=== PATIENT | male | born 1955 | race Caucasian/White ===

== ENCOUNTER → 2020-10-01 | Outpatient (CLI) | payer MEDICARE | LOC: WOUNDCARE 13:44 | PROVIDERS: ATTEND Surgery | DX: E11.52 Type 2 diabetes mellitus with diabetic peripheral angiopathy with gangrene (principal); E11.622 Type 2 diabetes mellitus with other skin ulcer; L97.226 Non-pressure chronic ulcer of left calf with bone involvement without evidence of necrosis; I70.262 Atherosclerosis of native arteries of extremities with gangrene, left leg; T65.222A Toxic effect of tobacco cigarettes, intentional self-harm, initial encounter; F17.218 Nicotine dependence, cigarettes, with other nicotine-induced disorders; Z89.512 Acquired absence of left leg below knee | CPT/HCPCS: 11042; A6266; G0463 ==

== ENCOUNTER → 2020-10-08 | Outpatient (CLI) | payer MEDICARE ==
--- NOTE | 2020-10-08 16:33 | Diagnostic Imaging Report ---
INDICATION: Soft tissue ulcer. COMPARISON: None FINDINGS: Multiple radiographic views of the left tibia and fibula were obtained. There is gross deformity to the tibia and fibula consistent with probable old healed fractures. 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 Cortical margins appear well-defined. No distinct osteolytic process is identified. No unexpected radiopaque foreign bodies are seen. Left knee joint appears intact. IMPRESSION: 1. No distinct osteolytic process is identified. Please note however that osteomyelitis cannot be excluded based on radiographs alone. If there is concern for osteomyelitis, MRI is recommended. 2. Gross deformity of the left tibia and fibula suggestive of prior fracture and subsequent healing. Dictated by: Dictated on workstation # [id number]
== END ==
LOC: LAB 11:38
PROVIDERS: ATTEND Surgery
DX: E11.622 Type 2 diabetes mellitus with other skin ulcer (principal); I70.242 Atherosclerosis of native arteries of left leg with ulceration of calf; L97.226 Non-pressure chronic ulcer of left calf with bone involvement without evidence of necrosis; T65.222A Toxic effect of tobacco cigarettes, intentional self-harm, initial encounter; F17.218 Nicotine dependence, cigarettes, with other nicotine-induced disorders; Z89.512 Acquired absence of left leg below knee
CPT/HCPCS: 36415; 73590; 85652; 86141

== ENCOUNTER → 2020-10-08 | Outpatient (CLI) | payer MEDICARE ==
[~2020-10-08] MED LIST: EMPA1TAB PO; GABA-490 PO; IBUP-1773 PO; INSU100I14 SC; INSU100I34 SC; METF-399 PO
== END ==
LOC: WOUNDCARE 12:09
PROVIDERS: ATTEND Surgery
DX: E11.622 Type 2 diabetes mellitus with other skin ulcer (principal); I96 Gangrene, not elsewhere classified; L97.226 Non-pressure chronic ulcer of left calf with bone involvement without evidence of necrosis; I70.242 Atherosclerosis of native arteries of left leg with ulceration of calf; T65.222A Toxic effect of tobacco cigarettes, intentional self-harm, initial encounter; F17.218 Nicotine dependence, cigarettes, with other nicotine-induced disorders; Z89.512 Acquired absence of left leg below knee
CPT/HCPCS: 11042; G0463

== ENCOUNTER 2020-11-16 14:32 | Inpatient (IN) | payer MEDICARE ==
[~2020-11-16] VITALS: Ht 168 cm; Wt 54.5 kg
[2020-11-16 14:35] VITALS: BP 110/77
[2020-11-16 14:45] LABS: BASOPHILS # (AUTO) 0.1 10^3/uL (0.0-0.1); BASOPHILS % (AUTO) 0 % (0-10); EOSINOPHILS # (AUTO) 0.5 10^3/uL (0.0-0.3); EOSINOPHILS % (AUTO) 3 % (0-10); HEMATOCRIT 40 % (40-54); HEMOGLOBIN 13.3 g/dL (13.3-17.7); LYMPHOCYTES # (AUTO) 1.9 10^3/uL (1.0-4.0); LYMPHOCYTES % (AUTO) 11 % (12-44); MEAN CORPUSCULAR HEMOGLOBIN 31 pg (25-34); MEAN CORPUSCULAR HGB CONC 33 g/dL (32-36); MEAN CORPUSCULAR VOLUME 93 fL (80-99); MEAN PLATELET VOLUME 9.6 fL (9.0-12.2); MONOCYTES # (AUTO) 1.2 10^3/uL (0.0-1.0); MONOCYTES % (AUTO) 7 % (0-12); NEUTROPHILS # (AUTO) 13.6 10^3/uL (1.8-7.8); NEUTROPHILS % (AUTO) 78 % (42-75); PLATELET COUNT 412 10^3/uL (130-400); WHITE BLOOD COUNT 17.5 10^3/uL (4.3-11.0)
[2020-11-16] MEDS ORDERED: NS IV 1000 ML 1,000 ML ONE ×2 (14:48→15:16)
[2020-11-16 14:56] LABS: ALBUMIN 4.3 GM/DL (3.2-4.5); POTASSIUM 3.7 MMOL/L (3.6-5.0)
--- NOTE | 2020-11-16 14:57 | Diagnostic Imaging Report ---
PROCEDURE: CT head w/o, r/o stroke. TECHNIQUE: Multiple contiguous axial images were obtained through the brain without the use of intravenous contrast. Auto Exposure Controls were utilized during the CT exam to meet ALARA standards for radiation dose reduction. INDICATION: Stroke. Neurological deficit. COMPARISON: 08/09/2012. FINDINGS: The ventricles and cortical sulci are mildly prominent, likely from generalized parenchymal volume loss. There is no midline shift or mass effect. No acute intracranial hemorrhage is seen. No CT evidence of acute territorial ischemia is identified. There are areas of periventricular hypodensity in the white matter. The calvarium appears intact. Visualized paranasal sinuses are clear. IMPRESSION: 1. No acute intracranial hemorrhage or CT evidence of acute territorial ischemia. If there is persistent clinical concern for infarct, consider MRI. 2. Generalized parenchymal volume loss with findings of chronic microvascular disease. Dictated by: Dictated on workstation # [id number]
[2020-11-16 14:58] LABS: CALCIUM 10.1 MG/DL (8.5-10.1)
[2020-11-16 15:00] LABS: BILIRUBIN,TOTAL 0.3 MG/DL (0.1-1.0)
[2020-11-16 15:01] LABS: FIBRIN DEGRADATION PRODUCTS 0.28 UG/ML (0.00-0.49); INR 0.9 (0.8-1.4); PROTHROMBIN TIME PATIENT 12.5 SEC (12.2-14.7)
[2020-11-16 15:02] LABS: CREATININE SERUM 1.78 MG/DL (0.60-1.30)
[2020-11-16 15:04] LABS: BAND NEUTROPHILS 0 %; BASOPHILS % (MANUAL) 0 %; EOSINOPHILS % (MANUAL) 2 %; LYMPHOCYTES % (MANUAL) 8 %; MONOCYTES % (MANUAL) 7 %; NEUTROPHILS % (MANUAL) 83 %; RBC MORPH NORMAL
[2020-11-16 15:09] LABS: ABG BASE EXCESS -6.3 MMOL/L (-2.5-2.5); ABG OXYGEN SATURATION 94 % (94-100); ABG PO2 84 MMHG (79-93); ABG TCO2 25.1 MMOL/L (21.0-31.0)
[2020-11-16 15:10] LABS: INSPIRED O2 4; PATIENT TEMP 35.6; VENTILATOR NO
[2020-11-16] MEDS ORDERED: NOREPINEPHRINE 8 MG/250 ML 250 ML IV ONE (15:10)
--- NOTE | 2020-11-16 15:10 | Diagnostic Imaging Report ---
HISTORY: Unresponsive. Altered mental status. Stroke. COMPARISON: CT from 03/07/2013. TECHNIQUE: Frontal view of the chest. FINDINGS: Lung volumes are normal. There are mild airspace opacities in the left lung base. There is no pleural effusion or pneumothorax. The cardiac silhouette is normal in size. IMPRESSION: Left basilar airspace opacities, may represent atelectasis or infiltrate. Dictated by: Dictated on workstation # [id number]
[2020-11-16 15:11] LABS: ABG PCO2 76 MMHG (35-45); ABG PH 7.09 (7.37-7.43)
[2020-11-16] MEDS ORDERED: PROPOFOL DRIP (ICU) 100 ML IV ONE (15:26)
[2020-11-16 15:32] VITALS: BP 80/57
[2020-11-16] MEDS ORDERED: PIPERACILLIN SODIUM/TAZOBACTAM 4.5 GM in NS (IVPB) 100 ML IV ONE (15:45)
--- NOTE | 2020-11-16 15:46 | ED General ---
General Stated Complaint: UNRESPONSIVE Source of Information: EMS Exam Limitations: Other (Unresponsive) History of Present Illness Date Seen by Provider: November 16, 2020 Time Seen by Provider: 14:32 Initial Comments Here by EMS with report of unresponsiveness at home. Daughter states the patient hides his medicines and she is unsure what he takes. Does have prescriptions through [facility] for diabetes medicine and may have recently been on antibiotic. Patient is somewhat obtunded marginally protecting airway with O2 sats in the 90s with nasal cannula. Seems to move bilateral extremities upper and has prosthetic to left lower extremity. Does have history of wound to the left lower extremity and on and infection there. Otherwise very limited information. Timing/Duration: 1-3 Hours Severity: Severe Allergies and Home Medications Allergies Coded Allergies: No Known Drug Allergies (Unverified , 05/02/11) Patient Home Medication List Home Medication List Reviewed: Yes Review of Systems Review of Systems Constitutional: see HPI Unable to complete review of systems due to unresponsiveness and critical condition. Past Vhvucbw-Tgekao-Dccthv Hx Past Med/Social Hx: Reviewed Nursing Past Med/Soc Hx (Records review) Patient Social History Alcohol Use: Regular Use Smoking Status: Current Everyday Smoker Past Medical History Surgeries: Yes Orthopedic Endocrine: Yes Diabetes, Non-Insulin dep Family Medical History No Pertinent Family Hx Physical Exam Vital Signs Vital Signs - First Documented 11/16/20 11/16/20 14:35 14:47 Pulse 75 Resp 10 B/P (MAP) 110/77 Pulse Ox 98 O2 Delivery Nasal Cannula O2 Flow Rate 4.00 FiO2 100 Capillary Refill : Height, Weight, BMI Height: '" Weight: lbs. oz. kg; BMI Method:Estimated General Appearance: Chronically ill, Severe Distress, Thin HEENT: Other (Pupils pinpoint bilateral with dry mucous membranes) Neck: Non Tender, Supple Respiratory: Other (Coarse breath sounds with bagging bilateral. Respiratory rate 4-7. Occasional snoring respirations) Cardiovascular: Regular Rate, Rhythm, No Murmur Gastrointestinal: Non Tender, Soft Back: Normal Inspection, No CVA Tenderness, No Vertebral Tenderness Extremity: Other (Left BKA with prosthetic device. Distal stump has bandaged wound.) Neurologic/Psychiatric: Other (Unresponsive but does localize to pain. Eye- opening to pain and nonverbal.) Skin: Warm/Dry, Erythema (Distal stump on left leg has wound with packing and surrounding erythema.), Other (Bandaged wound to distal stump left lower leg.) Focused Exam Lactate Level 11/16/20 14:35: Lactic Acid Level 0.70 Lactic Acid Level Laboratory Tests Test 11/16/20 14:35 Lactic Acid Level 0.70 MMOL/L (0.50-2.00) Procedures/Interventions Tube Size: 7.50 Progress/Results/Core Measures Suspected Sepsis SIRS Temperature: Pulse: 60 Respiratory Rate: 14 Laboratory Tests 11/16/20 14:35: White Blood Count 17.5H Blood Pressure 170 /106 Mean: 127 11/16/20 14:35: Lactic Acid Level 0.70 Laboratory Tests 11/16/20 14:35: Creatinine 1.78H, INR Comment 0.9, Platelet Count 412H, Total Bilirubin 0.3 Results/Orders Lab Results Laboratory Tests Test 11/16/20 14:35 11/16/20 14:47 11/16/20 15:01 11/16/20 15:12 Range/Units White Blood Count 17.5 H 4.3-11.0 10^3/uL Red Blood Count 4.27 L 4.30-5.52 10^6/uL Hemoglobin 13.3 13.3-17.7 g/dL Hematocrit 40 40-54 % Mean Corpuscular Volume 93 80-99 fL Mean Corpuscular Hemoglobin 31 25-34 pg Mean Corpuscular Hemoglobin Concent 33 32-36 g/dL Red Cell Distribution Width 12.8 10.0-14.5 % Platelet Count 412 H 130-400 10^3/uL Mean Platelet Volume 9.6 9.0-12.2 fL Immature Granulocyte % (Auto) 2 % Neutrophils (%) (Auto) 78 H 42-75 % Lymphocytes (%) (Auto) 11 L 12-44 % Monocytes (%) (Auto) 7 0-12 % Eosinophils (%) (Auto) 3 0-10 % Basophils (%) (Auto) 0 0-10 % Neutrophils # (Auto) 13.6 H 1.8-7.8 10^3/uL Lymphocytes # (Auto) 1.9 1.0-4.0 10^3/uL Monocytes # (Auto) 1.2 H 0.0-1.0 10^3/uL Eosinophils # (Auto) 0.5 H 0.0-0.3 10^3/uL Basophils # (Auto) 0.1 0.0-0.1 10^3/uL Immature Granulocyte # (Auto) 0.3 H 0.0-0.1 10^3/uL Neutrophils % (Manual) 83 % Lymphocytes % (Manual) 8 % Monocytes % (Manual) 7 % Eosinophils % (Manual) 2 % Basophils % (Manual) 0 % Band Neutrophils 0 % Blood Morphology Comment NORMAL Prothrombin Time 12.5 12.2-14.7 SEC INR Comment 0.9 0.8-1.4 Activated Partial Thromboplast Time 34 24-35 SEC D-Dimer 0.28 0.00-0.49 UG/ML Sodium Level 134 L 135-145 MMOL/L Potassium Level 3.7 3.6-5.0 MMOL/L Chloride Level 99 98-107 MMOL/L Carbon Dioxide Level 21 21-32 MMOL/L Anion Gap 14 5-14 MMOL/L Blood Urea Nitrogen 37 H 7-18 MG/DL Creatinine 1.78 H 0.60-1.30 MG/DL Estimat Glomerular Filtration Rate 38 BUN/Creatinine Ratio 21 Glucose Level 162 H 70-105 MG/DL Lactic Acid Level 0.70 0.50-2.00 MMOL/L Calcium Level 10.1 8.5-10.1 MG/DL Corrected Calcium 9.9 8.5-10.1 MG/DL Total Bilirubin 0.3 0.1-1.0 MG/DL Aspartate Amino Transf (AST/SGOT) 19 5-34 U/L Alanine Aminotransferase (ALT/SGPT) 15 0-55 U/L Alkaline Phosphatase 59 40-136 U/L Troponin I 0.609 *H <0.028 NG/ML C-Reactive Protein High Sensitivity 7.40 H 0.00-0.50 MG/DL Total Protein 8.0 6.4-8.2 GM/DL Albumin 4.3 3.2-4.5 GM/DL Procalcitonin 0.08 <0.10 NG/ML Salicylates Level < 5.0 L 5.0-20.0 MG/DL Acetaminophen Level < 10 L 10-30 UG/ML Serum Alcohol < 10 <10 MG/DL Glucometer 173 H 70-110 MG/DL Blood Gas Puncture Site RIGHT RADIAL Blood Gas Patient Temperature 35.6 Arterial Blood pH 7.09 *L 7.37-7.43 Arterial Blood Partial Pressure CO2 76 *H 35-45 MMHG Arterial Blood Partial Pressure O2 84 79-93 MMHG Arterial Blood HCO3 23 23-27 MMOL/L Arterial Blood Total CO2 25.1 21.0-31.0 MMOL/L Arterial Blood Oxygen Saturation 94 94-100 % Arterial Blood Base Excess -6.3 L -2.5-2.5 MMOL/L Fred Test UNKNOWN Blood Gas Ventilator Setting NO Blood Gas Inspired Oxygen 4 Urine Color YELLOW Urine Clarity CLEAR Urine pH 6.0 5-9 Urine Specific [place] 1.025 H 1.016-1.022 Urine Protein TRACE H NEGATIVE Urine Glucose (UA) 2+ H NEGATIVE Urine Ketones NEGATIVE NEGATIVE Urine Nitrite NEGATIVE NEGATIVE Urine Bilirubin NEGATIVE NEGATIVE Urine Urobilinogen 0.2 < = 1.0 MG/DL Urine Leukocyte Esterase NEGATIVE NEGATIVE Urine RBC (Auto) NEGATIVE NEGATIVE Urine RBC NONE /HPF Urine WBC RARE /HPF Urine Squamous Epithelial Cells RARE /HPF Urine Crystals NONE /LPF Urine Bacteria NEGATIVE /HPF Urine Casts NONE /LPF Urine Mucus NEGATIVE /LPF Urine Culture Indicated NO Urine Opiates Screen NEGATIVE NEGATIVE Urine Oxycodone Screen NEGATIVE NEGATIVE Urine Methadone Screen POSITIVE H NEGATIVE Urine Propoxyphene Screen NEGATIVE NEGATIVE Urine Barbiturates Screen NEGATIVE NEGATIVE Ur Tricyclic Antidepressants Screen NEGATIVE NEGATIVE Urine Phencyclidine Screen NEGATIVE NEGATIVE Urine Amphetamines Screen POSITIVE H NEGATIVE Urine Methamphetamines Screen POSITIVE H NEGATIVE Urine Benzodiazepines Screen NEGATIVE NEGATIVE Urine Cocaine Screen NEGATIVE NEGATIVE Urine Cannabinoids Screen NEGATIVE NEGATIVE Test 11/16/20 16:16 Range/Units Blood Gas Puncture Site RIGHT RADIAL Blood Gas Patient Temperature 35.4 Arterial Blood pH 7.22 *L 7.37-7.43 Arterial Blood Partial Pressure CO2 42 35-45 MMHG Arterial Blood Partial Pressure O2 228 H 79-93 MMHG Arterial Blood HCO3 17 *L 23-27 MMOL/L Arterial Blood Total CO2 18.8 L 21.0-31.0 MMOL/L Arterial Blood Oxygen Saturation 99 94-100 % Arterial Blood Base Excess -9.2 L -2.5-2.5 MMOL/L Fred Test NEGATIVE Blood Gas Ventilator Setting YES Blood Gas Inspired Oxygen 36% My Orders Orders - MICHAEL WRIGHT MD Cbc With Automated Diff (11/16/20 14:34) Protime With Inr (11/16/20 14:34) Partial Thromboplastin Time (11/16/20 14:34) Comprehensive Metabolic Panel (11/16/20 14:34) Fibrin Degradation Products (11/16/20 14:34) Troponin I (11/16/20 14:34) Ua Culture If Indicated (11/16/20 14:34) Chest 1 View, Ap/Pa Only (11/16/20 14:34) Catheter(Urinary) Insert & Ass 03,15 (11/16/20 14:34) Ekg Tracing (11/16/20 14:34) Nothing By Mouth (11/16/20 Lunch) Accucheck Stat ONCE (11/16/20 14:34) Ed Iv/Invasive Line Start (11/16/20 14:34) Vital Signs Stroke Patient Q15M (11/16/20 14:34) Ct Head Wo-R/O Stroke (11/16/20 14:34) O2 (11/16/20 14:34) Intake & Output 06,14,22 (11/16/20 14:34) Monitor-Rhythm Ecg Trace Only (11/16/20 14:34) Dysphagia Screening Tool (11/16/20 14:34) Lipid Panel (11/17/20 06:00) Manual Differential (11/16/20 14:35) Blood Culture (11/16/20 14:55) Arterial Blood Gas (11/16/20 14:55) Ns Iv 1000 Ml (Sodium Chloride 0.9%) (11/16/20 14:48) Hs C Reactive Protein (11/16/20 14:35) Procalcitonin (Pct) (11/16/20 14:35) Norepinephrine 8 Mg/250 Ml (Norepinephri (11/16/20 15:10) Ns Iv 1000 Ml (Sodium Chloride 0.9%) (11/16/20 15:16) Drug Screen Stat (Urine) (11/16/20 15:34) Propofol Drip (Icu) (Diprivan Drip (Icu) (11/16/20 15:26) Lactic Acid Analyzer (11/16/20 15:38) Piperacillin Sodium/Tazobactam (Zosyn Vi (11/16/20 15:45) Acetaminophen (11/16/20 15:50) Alcohol (11/16/20 15:50) Salicylate (11/16/20 15:50) Vancomycin Injection (Vancomycin Injecti (11/16/20 16:15) Arterial Blood Gas (11/16/20 16:15) Medications Given in ED Current Medications Medications Dose Ordered Sig/Aracely Route Start Time Stop Time Status Last Admin Dose Admin Norepinephrine Bitartrate 250 ml @ ud STK-MED ONCE IV 11/16/20 15:10 11/16/20 15:18 DC 11/16/20 15:25 8.4 MLS/HR Piperacillin Sod/ Tazobactam Sod 4.5 gm/Sodium Chloride 100 ml @ 200 mls/hr ONCE ONCE IV 11/16/20 15:45 11/16/20 16:14 DC 11/16/20 15:59 200 MLS/HR Propofol 100 ml @ ud STK-MED ONCE IV 11/16/20 15:26 11/16/20 15:34 DC 11/16/20 15:37 8.1 MLS/HR Sodium Chloride 1,000 ml @ ud STK-MED ONCE .ROUTE 11/16/20 14:48 11/16/20 14:57 DC 11/16/20 15:07 0 MLS/HR Sodium Chloride 1,000 ml @ ud STK-MED ONCE .ROUTE 11/16/20 15:16 11/16/20 15:25 DC 11/16/20 15:27 150 MLS/HR Vancomycin HCl 1000 mg/Sodium Chloride 250 ml @ 250 mls/hr ONCE ONCE IV 11/16/20 16:15 11/16/20 17:14 DC 11/16/20 16:45 250 MLS/HR Vital Signs/I&O 11/16/20 11/16/20 11/16/20 11/16/20 14:35 14:47 15:25 15:32 Pulse 75 57 61 Resp 10 14 B/P (MAP) 110/77 80/57 Pulse Ox 98 89 100 O2 Delivery Nasal Cannula O2 Flow Rate 4.00 FiO2 100 100 11/16/20 15:37 Pulse 60 B/P (MAP) 170/106 Capillary Refill : Blood Pressure Mean: 127 Progress Note : Progress Note Seen and evaluated on arrival by EMS. Patient is barely protecting his airway with marginal O2 sats on nasal cannula. We will go ahead and do stroke evaluation. To CT after rapid assessment and stroke protocol initiated.. Patient appears to be moving all 4 extremities intermittently but is not waking to answer questions. 1450: Returned from CT. EKG complete. Patient remains obtunded with GCS of 8 (E2, V1, M5.) Elected to intubate for airway protection. 1510: Patient intubated x1 attempt via videoscope without complications. We have had additional labs for sepsis. We will initiate Gomez catheter and NG tube. 1534: Central line placed via ultrasound guidance without complications. We have initiated propofol drip and Levophed drip. Levophed for hypotension after intubation although this was titrated down to off. Propofol drip for continued sedation. Patient did receive 2.5 mg of Versed IV and fentanyl 50 mcg IV for post intubation sedation. Propofol drip initiated at 30 mcg/kg/min Levophed initiated at 0.1 mcg/kg/min. 1559: I did discuss the case with Dr. Wheatley and she accepts patient for admission to the ICU, critical condition but stabilized. Requests consult with Dr. Spaulding. 1607: I did discuss the case with Dr. Spaulding. He agrees with current plan. Request ABG now which was ordered so that we can adjust vent. Currently vent settings at rate of 12, tidal volume 450 and PEEP of 5 with FiO2 at 50%. 1639: I rediscussed the case with Dr. Spaulding. Vent settings were changed to rate of 18 and FiO2 has been decreased to keep O2 sat greater than 92%. Otherwise agrees with the plan. I did have a long discussion with the daughter and updated her on all the findings and concerns and she brought further information that she had been watching for couple hours as he was not really responsive and with occasional quit breathing. She kept trying to wake him up and he would not and ultimately called EMS. He does have significant problem with pain related to the stump but is not prescribed pain medicine. She states the doctors are prescribing it to him but he does not really follow-up with anybody permanently. We did discuss that he will need a primary care provider to help him with the pain control needs. She verbalized understanding. Patient and family may benefit from social work consult once improved. 1651: Patient to ICU. Patient did have evidence of infection both in the left lower extremity and left lower lobe with a long for which antibiotics were started. Hypotension and shock state likely related to drug overdose we will go ahead and treat as septic shock. Patient did have order of 2 L of normal saline bolus which exceeds the 30 mL/kg volume resuscitation. Levophed was initiated which did adequately control blood pressure with fluids. Patient admitted on sepsis order set. ECG Initial ECG Impression Date: November 16, 2020 Initial ECG Impression Time: 14:50 Initial ECG Rate: 72 Initial ECG Rhythm: Normal Sinus Comment Sinus rhythm with left ventricular hypertrophy. No evidence of ST elevation CA. No previous available for comparison. Interpreted by me. Diagnostic Imaging Diagonstic Imaging: CT Plain Films/CT/US/NM/MRI: head Comments [facility], [place] NAME: ARASH BARILLAS [facility] REC#: [id number] PT STATUS: REG ER : 1955 PHYSICIAN: MICHAEL WRIGHT MD ADMIT DATE: 11/16/20/ER Signed Date of Exam:11/16/20 CT HEAD WO-R/O STROKE PROCEDURE: CT head w/o, r/o stroke. TECHNIQUE: Multiple contiguous axial images were obtained through the brain without the use of intravenous contrast. Auto Exposure Controls were utilized during the CT exam to meet ALARA standards for radiation dose reduction. INDICATION: Stroke. Neurological deficit. COMPARISON: 08/09/2012. FINDINGS: The ventricles and cortical sulci are mildly prominent, likely from generalized parenchymal volume loss. There is no midline shift or mass effect. No acute intracranial hemorrhage is seen. No CT evidence of acute territorial ischemia is identified. There are areas of periventricular hypodensity in the white matter. The calvarium appears intact. Visualized paranasal sinuses are clear. IMPRESSION: 1. No acute intracranial hemorrhage or CT evidence of acute territorial ischemia. If there is persistent clinical concern for infarct, consider MRI. 2. Generalized parenchymal volume loss with findings of chronic microvascular disease. Dictated by: Dictated on workstation # [id number] Dict: 11/16/20 1445 Trans: 11/16/20 1524 [facility] [id number] Interpreted by: CARMINA BANKS MD Electronically signed by: CARMINA BANKS MD 11/16/20 1524 Diagonstic Imaging: Xray Plain Films/CT/US/NM/MRI: chest Comments [facility] [place], [place] NAME: ARASH BARILLAS [facility] REC#: [id number] PT STATUS: REG ER : 1955 PHYSICIAN: MICHAEL WRIGHT MD ADMIT DATE: 11/16/20/ER Signed Date of Exam:11/16/20 CHEST 1 VIEW, AP/PA ONLY HISTORY: Unresponsive. Altered mental status. Stroke. COMPARISON: CT from 03/07/2013. TECHNIQUE: Frontal view of the chest. FINDINGS: Lung volumes are normal. There are mild airspace opacities in the left lung base. There is no pleural effusion or pneumothorax. The cardiac silhouette is normal in size. IMPRESSION: Left basilar airspace opacities, may represent atelectasis or infiltrate. Dictated by: Dictated on workstation # [id number] Dict: 11/16/20 1502 Trans: 11/16/20 1524 [facility] [id number] Interpreted by: CARMINA BANKS MD Electronically signed by: CARMINA BANKS MD 11/16/20 1524 Critical Care Note Critical Care Start Time: 14:32 Stop Time: 16:51 Total Time (minutes) 60 Departure Communication (Admissions) Time/Spoke to Admitting Phy: 15:59 Time/Spoke to Consulting Phy: 16:07 Impression Primary Impression: Drug overdose, multiple drugs Qualified Codes: T50.914A - Poisoning by multiple unspecified drugs, medicaments and biological substances, undetermined, initial encounter Additional Impressions: Left lower lobe pneumonia Qualified Codes: J18.9 - Pneumonia, unspecified organism Amputation stump infection Septic shock Disposition: ADMITTED INPATIENT Condition: Critical Admissions Decision to Admit Reason: Admit from ER (General) Decision to Admit/Date: November 16, 2020 Time/Decision to Admit Time: 15:59 Departure-Patient Inst. Referrals: JAYCE ROWAN DO (PCP/Family) Primary Care Physician Scripts No Active Prescriptions or Reported Meds MICHAEL WRIGHT MD November 16, 2020 15:46
--- NOTE | 2020-11-16 15:49 | Diagnostic Imaging Report ---
HISTORY: ET tube and central line placement. TECHNIQUE: Frontal view of the chest. COMPARISON: 11/16/2020. FINDINGS: Lung volumes are normal. The endotracheal tube is 6 cm above the flor. An enteric tube crosses the [id number]. The right jugular line tip projects over the low SVC. There are mild airspace opacities in the lung bases, left greater than right. There is no pleural effusion or pneumothorax. The cardiac silhouette is normal in size. IMPRESSION: 1. The endotracheal tube is 6 cm above the flor. The right jugular line projects over the low SVC. 2. Bibasilar airspace opacities, left greater than right, stable since the prior exam. Dictated by: Dictated on workstation # [id number]
[2020-11-16 15:50] LABS: AMPHETAMINE SCREEN, URINE POSITIVE (NEGATIVE); BARBITURATE SCREEN URINE NEGATIVE (NEGATIVE); BENZODIAZEPINES SCREEN URINE NEGATIVE (NEGATIVE); CANNABINOID SCREEN, URINE NEGATIVE (NEGATIVE); COCAINE SCREEN URINE NEGATIVE (NEGATIVE); METHADONE STAT POSITIVE (NEGATIVE); METHAMPHETAMINE SCREEN URINE S POSITIVE (NEGATIVE); OPIATE SCREEN URINE NEGATIVE (NEGATIVE); OXYCODONE STAT NEGATIVE (NEGATIVE); PROPOXYPHENE STAT NEGATIVE (NEGATIVE); TRICYCLIC ANTIDEPRESSANTS SCRE NEGATIVE (NEGATIVE)
[2020-11-16 16:07] LABS: BILIRUBIN,URINE NEGATIVE (NEGATIVE); CLARITY,URINE CLEAR; COLOR,URINE YELLOW; GLUCOSE, URINE (UA) 2+ (NEGATIVE); KETONES,URINE NEGATIVE (NEGATIVE); LEUKOCYTE ESTERASE ,URINE NEGATIVE (NEGATIVE); NITRITE,URINE NEGATIVE (NEGATIVE); PROTEIN,URINE TRACE (NEGATIVE)
[2020-11-16 16:11] LABS: SALICYLATE < 5.0 MG/DL (5.0-20.0)
[2020-11-16] MEDS ORDERED: VANCOMYCIN INJECTION 1,000 MG in NS (IVPB) 250 ML IV ONE (16:15)
[2020-11-16 16:20] LABS: ACETAMINOPHEN < 10 UG/ML (10-30)
[2020-11-16 16:20] LABS: BACTERIA,URINE NEGATIVE /HPF; SQUAMOUS EPITHELIAL CELL,UR RARE /HPF; WBC,URINE RARE /HPF
[2020-11-16 16:24] LABS: ABG BASE EXCESS -9.2 MMOL/L (-2.5-2.5); ABG OXYGEN SATURATION 99 % (94-100); ABG PCO2 42 MMHG (35-45); ABG PO2 228 MMHG (79-93); ABG TCO2 18.8 MMOL/L (21.0-31.0)
[2020-11-16 16:25] LABS: ALLENS TEST NEGATIVE; INSPIRED O2 36%; PATIENT TEMP 35.4; VENTILATOR YES
[2020-11-16 16:26] LABS: ABG PH 7.22 (7.37-7.43)
[2020-11-16] MEDS ORDERED: NS IV 1000 ML 1,000 ML IV SCH (16:30)
[2020-11-16 18:15] VITALS: BP 104/69
[2020-11-16] MEDS: LACTATED RINGERS 1,000 ML IV SCH (20:28)
[2020-11-16 21:25] VITALS: BP 103/66
[2020-11-16] MEDS ORDERED: PIPERACILLIN/TAZO 4.5 GM VIAL (ZOSYN) IV ONE (21:57)
[2020-11-16] MEDS ORDERED: NS (IVPB) 100 ML ONE (21:58)
[2020-11-16] MEDS ORDERED: fentaNYL DRIP PRE-MIX 250 ML IV ONE (22:20)
[2020-11-16] MEDS: fentaNYL DRIP PRE-MIX 250 ML IV SCH (22:37)
[2020-11-16] MEDS: PIPERACILLIN/TAZO 4.5 GM/NS 100 ML IV SCH ×2 (22:37)
[2020-11-17] VITALS (7 sets, daily range): BP systolic 93–114; BP diastolic 57–65
[2020-11-17] MEDS: fentaNYL DRIP PRE-MIX 250 ML IV SCH ×5 (02:19→22:12)
[2020-11-17] MEDS: PROPOFOL DRIP (ICU) 100 ML IV SCH ×3 (02:19→16:21)
[2020-11-17] MEDS: LACTATED RINGERS 1,000 ML IV SCH ×4 (02:19→22:40)
[2020-11-17 02:21] LABS: ABG BASE EXCESS -7.8 MMOL/L (-2.5-2.5); ABG OXYGEN SATURATION 95 % (94-100); ABG PCO2 37 MMHG (35-45); ABG PO2 81 MMHG (79-93); ABG TCO2 18.6 MMOL/L (21.0-31.0)
[2020-11-17 02:26] LABS: ABG PH 7.29 (7.37-7.43)
[2020-11-17 02:27] LABS: ALLENS TEST YES-POS; INSPIRED O2 21%; PATIENT TEMP 37.1; VENTILATOR YES
[2020-11-17 02:58] LABS: BASOPHILS # (AUTO) 0.1 10^3/uL (0.0-0.1); BASOPHILS % (AUTO) 0 % (0-10); EOSINOPHILS # (AUTO) 0.4 10^3/uL (0.0-0.3); EOSINOPHILS % (AUTO) 2 % (0-10); HEMATOCRIT 32 % (40-54); LYMPHOCYTES # (AUTO) 1.1 10^3/uL (1.0-4.0); LYMPHOCYTES % (AUTO) 6 % (12-44); MEAN CORPUSCULAR HEMOGLOBIN 31 pg (25-34); MEAN CORPUSCULAR HGB CONC 33 g/dL (32-36); MEAN CORPUSCULAR VOLUME 94 fL (80-99); MEAN PLATELET VOLUME 9.3 fL (9.0-12.2); MONOCYTES # (AUTO) 1.2 10^3/uL (0.0-1.0); MONOCYTES % (AUTO) 6 % (0-12); NEUTROPHILS # (AUTO) 16.9 10^3/uL (1.8-7.8); NEUTROPHILS % (AUTO) 86 % (42-75); PLATELET COUNT 337 10^3/uL (130-400); WHITE BLOOD COUNT 19.7 10^3/uL (4.3-11.0)
[2020-11-17 02:59] LABS: HEMOGLOBIN 10.6 g/dL (13.3-17.7)
[2020-11-17 03:20] LABS: BUN/CREATININE RATIO 25; CALCIUM 7.7 MG/DL (8.5-10.1); CARBON DIOXIDE 18 MMOL/L (21-32); CHOLESTEROL 138 MG/DL (< 200); CREATININE SERUM 1.04 MG/DL (0.60-1.30); GFR ESTIMATED > 60; GLUCOSE 90 MG/DL (70-105); HDL CHOLESTEROL 25 MG/DL (40-60); MAGNESIUM 1.7 MG/DL (1.6-2.4); PHOSPHORUS 2.7 MG/DL (2.3-4.7); POTASSIUM 3.2 MMOL/L (3.6-5.0); SODIUM 139 MMOL/L (135-145); TRIGLYCERIDES 157 MG/DL (<150); VLDL CHOLESTEROL 31 MG/DL (5-40)
[2020-11-17 03:35] LABS: CHLORIDE 111 MMOL/L (98-107)
--- NOTE | 2020-11-17 05:33 | Pulmonary Consultation ---
History of Present Illness History of Present Illness Date Seen by Provider: November 17, 2020 Time Seen by Provider: 05:27 Date of Admission History of Present Illness 65yoCM with a PMH of IDDMII, HLD, and chronic pain who presented to the ER due to decreased responsiveness. He is currently intubated and sedated and unable to provide any history. All history obtained from the records. Allergies and Home Medications Allergies Coded Allergies: No Known Drug Allergies (Unverified , 05/02/11) Home Medications Empagliflozin/Linagliptin 1 Each Tablet, 1 EA PO DAILY, (Reported) Gabapentin 400 Mg Capsule, 400 MG PO TID, (Reported) LAST FILLED 08-23-2020 #90/30 DAY SUPPLY Ibuprofen 600 Mg Tablet, 600 MG PO Q6H PRN for PAIN-MILD (1-4), (Reported) Insulin Aspart 300 Units/3 Ml Solution, UNITS SC ACHS, (Reported) USES PER SLIDING SCALE Insulin Glargine,Hum.rec.anlog 100 Unit/1 Ml Insuln.pen, 12 UNIT SC DAILY, (Reported) Metformin HCl 1,000 Mg Tablet, 1,000 MG PO BID, (Reported) LAST FILLED 08-23-2020 #60/30 DAY SUPPLY Past Gxxyazt-Zoapaw-Npoxab Hx Past Med/Social Hx: Reviewed Nursing Past Med/Soc Hx (Records review) Patient Social History Alcohol Use: Regular Use Smoking Status: Current Everyday Smoker Recent Infectious Disease Expo: No Alcohol Use?: Unable to obtain Past Medical History Surgeries: Yes Orthopedic Endocrine: Yes Diabetes, Non-Insulin dep Family Medical History No Pertinent Family Hx Review of Systems Time Seen by Provider: 05:35 Sepsis Event Evaluation Height, Weight, BMI Height: '" Weight: lbs. oz. kg; 21.96 BMI Method:Estimated Exam Exam Vital Signs Date Time Temp Pulse Resp B/P (MAP) Pulse Ox O2 Delivery O2 Flow Rate FiO2 11/17/20 04:00 99 Mechanical Ventilator 21 11/17/20 02:24 69 17 98 21 11/17/20 02:19 71 11/17/20 02:00 69 19 112/63 (79) 98 Mechanical Ventilator 21.00 11/17/20 01:00 80 11/17/20 01:00 72 17 103/62 (76) 99 Mechanical Ventilator 21.00 11/17/20 00:00 82 18 92/58 (69) 99 Mechanical Ventilator 21.00 5/22/21 23:59 99 Mechanical Ventilator 21 11/16/20 23:00 83 13 125/69 (87) 98 Mechanical Ventilator 21.00 11/16/20 22:00 50 119/74 (89) 100 Mechanical Ventilator 21.00 11/16/20 21:25 51 17 99 21 11/16/20 21:00 49 99/64 (76) 98 Mechanical Ventilator 21.00 11/16/20 20:00 48 106/67 (80) 97 Mechanical Ventilator 21.00 11/16/20 20:00 98 Mechanical Ventilator 21 11/16/20 19:00 50 11/16/20 19:00 47 110/73 (85) 97 Mechanical Ventilator 21.00 11/16/20 18:15 46 18 97 21 11/16/20 18:00 46 13 89/63 (72) 97 Mechanical Ventilator 21.00 11/16/20 17:44 Mechanical Ventilator 21 11/16/20 17:15 52 11/16/20 17:14 45 14 98/65 (76) 99 Mechanical Ventilator 21.00 11/16/20 17:06 48 14 100 21 11/16/20 17:05 35.6 51 14 97/65 (76) 99 Mechanical Ventilator 21.00 11/16/20 16:52 50 14 115/90 100 Ambu Bag 11/16/20 15:37 60 170/106 11/16/20 15:32 61 14 100 100 11/16/20 15:25 57 80/57 11/16/20 15:03 36.4 74 14 109/74 98 Nasal Cannula 11/16/20 14:47 35.4 76 16 112/78 (89) 91 Nasal Cannula 2.00 11/16/20 14:47 89 Nasal Cannula 4.00 100 11/16/20 14:35 75 10 110/77 98 I & O 11/17/20 07:00 Intake Total 400 ml Output Total 1730 ml Balance -1330 ml Height & Weight Height: '" Weight: lbs. oz. kg; 21.96 BMI Method:Estimated General Appearance: Chronically ill, Severe Distress, Thin HEENT: Other (Pupils pinpoint bilateral with dry mucous membranes) Neck: Non Tender, Supple Respiratory: Other (Coarse breath sounds with bagging bilateral. Respiratory rate 4-7. Occasional snoring respirations) Cardiovascular: Regular Rate, Rhythm, No Murmur Capillary Refill: Less Than 3 Seconds Extremity: Other (Left BKA with prosthetic device. Distal stump has bandaged wound.) Neurologic/Psychiatric: Other (Unresponsive but does localize to pain. Eye-o pening to pain and nonverbal.) Skin: Warm/Dry, Erythema (Distal stump on left leg has wound with packing and surrounding erythema.), Other (Bandaged wound to distal stump left lower leg.) Results Lab Laboratory Tests 11/16/20 14:35 11/17/20 02:52 Assessment/Plan Assessment/Plan Acute respiratory failure secondary to OD -Propofol and Fentanyl -450,18,5 and 21% PNA LLL with sepsis -Valerio cultures pending -Continue Abx Septic shock -IVF -Check ECho today -Levophed - titrate to D/C Bradycardia - secondary to Methadone. -Monitor -Poison control following Amputation with stump infection Methamphetamine -Education Methadone OD MANOJ KEITH DO November 17, 2020 05:33
[2020-11-17] MEDS ORDERED: PIPERACILLIN/TAZO 4.5 GM VIAL (ZOSYN) IV ONE (05:34)
[2020-11-17] MEDS ORDERED: NS (IVPB) 100 ML ONE (05:34)
[2020-11-17] MEDS: MAGNESIUM 1 GM/100 ML IVPB 100 ML IV SCH ×2 (05:59→07:55)
[2020-11-17] MEDS: POTASSIUM CL 10MEQ/50ML IVPB 50 ML IV SCH ×8 (06:00→09:52)
[2020-11-17] MEDS: PIPERACILLIN/TAZO 4.5 GM/NS 100 ML IV SCH ×6 (06:02→20:44)
[2020-11-17] MEDS: ENOXAPARIN 40 MG/0.4 ML (LOVENOX) SYR SC SCH (07:54)
[2020-11-17] MEDS: PANTOPRAZOLE 40 MG (PROTONIX) VIAL IV SCH (07:55)
[2020-11-17] MEDS ORDERED: PANTOPRAZOLE 40 MG (PROTONIX) VIAL IV SCH (09:00)
[2020-11-17] MEDS ORDERED: MIDAZOLAM 5 MG/5 ML (VERSED) VIAL IJ ONE (09:01)
[2020-11-17] MEDS ORDERED: ROCURONIUM 10 MG/ML 5 ML SYRINGE IV ONE (09:01)
[2020-11-17] MEDS ORDERED: fentaNYL INJ 100 MCG/2 ML AMP IV ONE (09:01)
[2020-11-17] MEDS ORDERED: SUCCINYLCHOLINE INJ 100 MG/5 ML SYR/VIAL INJ ONE (09:01)
[2020-11-17] MEDS ORDERED: ETOMIDATE IV SOLN 20 MG/10 ML VIAL IV ONE (09:01)
--- NOTE | 2020-11-17 09:28 | History & Physical-Hospitalist ---
History of Present Illness HPI/Chief Complaint Pt is a 65yoCM with a PMH of IDDMII, HLD, and chronic pain who presented to the ER due to decreased responsiveness. He is currently intubated and sedated and unable to provide any history. All history obtained from the records. I'm unsure when this all started but daughter apparently was with him and kept trying to wake him for a couple of hours.. Information from the record indicates his daughter was aware and is concerned about his medications as he hides them. He had a GCS of 8 on arrival and was intubated in the ER. He is currently sedated and appears comfortable. Source: patient Date Seen 11/17/20 Time Seen by a Provider: 09:18 Attending Physician Brittni Wheatley MD PCP Larry Mejia DO Referring Physician Date of Admission November 16, 2020 at 16:22 Home Medications & Allergies Home Medications Reviewed patient Home Medication Reconciliation performed by pharmacy medication reconciliations oxygen equipment technician and/or nursing. Patients Allergies have been reviewed. Allergies Allergies Coded Allergies No Known Drug Allergies (Sbuiqdbcks70/5/11) Past Medical/Social/Family Hx Patient Social History Tobacco Use?: Yes Tobacco type used: Cigarettes Smoking Status: Current Everyday Smoker Smokeless Tobacco Frequency: Never a User E-Cig and/or Vaping Freq: Never a User Alcohol Use?: Unable to obtain Pt stated abuse/neglect: Unable to obtain Immunizations Up To Date Influenza Vaccine Up-to-Date: No; Not Current Current Status Advance Directives: Unable to obtain Communicates: Unable To Communicate Is interpretation needed?: Unable to obtain Review of Systems ROS-Unable to Obtain: intubated Constitutional: see HPI Physical Exam Physical Exam Vital Signs Vital Signs - First Documented 11/16/20 11/16/20 14:35 14:47 Temp 35.4 Pulse 75 Resp 10 B/P (MAP) 110/77 Pulse Ox 98 O2 Delivery Nasal Cannula O2 Flow Rate 4.00 FiO2 100 Capillary Refill : Less Than 3 Seconds Height, Weight, BMI Height: '" Weight: lbs. oz. kg; 21.96 BMI Method:Estimated General Appearance: Chronically ill, Thin, Other (intubated and sedated) HEENT: Moist Mucous Membranes; No Scleral Icterus (L), No Scleral Icterus (R); Other (pupils nearly pinpoint) Neck: Normal Inspection, Supple Respiratory: Lungs Clear, No Accessory Muscle Use, No Respiratory Distress Cardiovascular: Regular Rate, Rhythm, No Murmur Gastrointestinal: Normal Bowel Sounds, Non Tender, Soft Extremity: Other (no edema. s/p right foot amputation) Neurologic/Psychiatric: Other (arouses to physical stimuli and tracks with eye shortly but then quickly closes them again) Skin: Normal Color, Warm/Dry; No Jaundice, No Mottled Results Results/Procedures Labs Laboratory Tests 11/16/20 14:35 11/17/20 02:52 Patient resulted labs reviewed. Imaging: Reviewed Imaging Report Imaging [facility] [place], [place] NAME: ARASH BARILLAS [facility] REC#: [id number] PT STATUS: REG ER : 1955 PHYSICIAN: MICHAEL WRIGHT MD ADMIT DATE: 11/16/20/ER Signed Date of Exam:11/16/20 CHEST 1 VIEW, AP/PA ONLY HISTORY: Unresponsive. Altered mental status. Stroke. COMPARISON: CT from 03/07/2013. TECHNIQUE: Frontal view of the chest. FINDINGS: Lung volumes are normal. There are mild airspace opacities in the left lung base. There is no pleural effusion or pneumothorax. The cardiac silhouette is normal in size. IMPRESSION: Left basilar airspace opacities, may represent atelectasis or infiltrate. Dictated by: Dictated on workstation # [id number] Dict: 11/16/20 1502 Trans: 11/16/20 1524 [facility] [id number] Interpreted by: CARMINA BANKS MD Electronically signed by: CARMINA BANKS MD 11/16/20 1524 Assessment/Plan Admission Diagnosis Acute Respiratory Failure Admission Status: Inpatient Order (span 2 midnights) Reason for Inpatient Admission: see below Assessment and Plan Acute Respiratory Failure Drug overdose Septic Shock from LLL pneumonia Respiratory failure likely multifactorial form drug overdose and pneumonia Vent management by Dr Spaulding Continue IV abx Given methadone suspected source of overdose may need to be intubated for days givne long half life Await cultures Levophed to keep MAP >60 IDDMII Fasting blood sugar 90 SSI Foot amputation with ulceration and infection unsure of indication for this Small ulcer on base of stump but no erythema or drainage Continue on IV abx 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
--- NOTE | 2020-11-17 10:59 | Diagnostic Imaging Report ---
EXAM: CHEST 1 VIEW, AP/PA ONLY INDICATION: Dyspnea. COMPARISON: Chest radiograph 11/16/2020. FINDINGS: Normal heart size and central pulmonary vascularity. Right IJ CVC tip mid SVC. ETT tip midway between the level clavicles and the flor. NG tube tip and side-port within the stomach. No focal pulmonary opacity. No pleural effusion or pneumothorax. IMPRESSION: 1. No acute cardiopulmonary findings. 2. Support lines in the expected positions. Dictated by: Dictated on workstation # [id number]
[2020-11-17] MEDS: NOREPINEPHRINE 8 MG/250 ML 250 ML IV SCH (12:46)
[2020-11-17] MEDS ORDERED: VANCOMYCIN 1 GM/NS 250 ML IVPB IV SCH ×2 (13:00)
--- NOTE | 2020-11-17 18:27 | Consultation-Cardiology ---
HPI-Cardiology Cardiology Consultation: Date of Consultation 11/17/20 Date of Admission Attending Physician Lexus Wheatley MD Admitting Physician Larry Mejia DO Consulting Physician John WHEELER MD HPI: Time Seen by a Provider: 14:15 Chief Complaint: Shortness of breath There is a 65-year-old gentleman with history of diabetes, hyperlipidemia who presented to the ER with decreased responsiveness. Drug overdose with poor GCS requiring intubation. Acute respiratory failure. Review of Systems-Cardiology Review of Systems Constitutional: As described under HPI; No As described under HPI, No no symptoms reported, No chills, No fever, No lightheadedness Eyes: No As described under HPI, No no symptoms reported, No blindness, No blurred vision, No contact lenses, No drainage, No decreased acuity, No foreign body sensation, No pain, No vision change Ears/Nose/Throat: No As described under HPI, No no symptoms reported, No chronic hearing loss, No ear discharge, No ear pain, No nasal drainage, No ulcerations Respiratory: No no symptoms reported; As described under HPI; No As described under HPI, No cough, No orthopnea, No shortness of breath, No SOB with excertion Cardiovascular: No no symptoms reported; As described under HPI; No As described under HPI, No chest pain, No edema, No irregular heart rate, No lightheadedness, No palpitations Gastrointestinal: No no symptoms reported, No As described under HPI, No abdomen distended, No abdominal pain, No blood streaked bowels, No constipation, No diarrhea, No nausea, No vomiting, No stool coloration changes Genitourinary: No As described under HPI, No burning, No dysuria, No discharge, No frequency, No flank pain, No hematuria, No urgency Skin: No rash, No skin related problems, No ulcerations Psychiatric/Neurological: No anxiety, No depression, No seizure, No focal weakness, No syncope Hematologic: No bleeding abnormalities GRO-Uhnjxn-Culcjv Hx Patient Social History Smoking Status: Current Everyday Smoker Alcohol Use?: Unable to obtain Pt feels they are or have been: Unable to obtain Tobacco type used: Cigarettes Past Medical History PMH As described under Assessment. Allergies and Home Medications Allergies Coded Allergies: No Known Drug Allergies (Unverified , 05/02/11) Patient Home Medication List Home Medication List Reviewed: Yes Physical Exam-Cardiology Physical Exam Vital Signs/I&O 11/17/20 11/17/20 11/17/20 11/17/20 06:29 07:00 07:00 07:24 Temp 36.8 Pulse 63 63 62 Resp 18 B/P (MAP) 101/61 (74) Pulse Ox 98 98 O2 Delivery Mechanical Ventilator O2 Flow Rate 21.00 FiO2 21 11/17/20 11/17/20 11/17/20 11/17/20 07:56 08:00 08:00 08:21 Pulse 61 62 Resp 18 B/P (MAP) 96/58 93/58 (70) Pulse Ox 97 98 97 O2 Delivery Mechanical Ventilator Mechanical Ventilator O2 Flow Rate 21.00 FiO2 21 21 11/17/20 11/17/20 11/17/20 11/17/20 09:00 10:00 11:00 11:21 Pulse 61 58 58 63 Resp 17 14 14 18 B/P (MAP) 94/58 (70) 94/59 (71) 98/60 (73) Pulse Ox 97 99 98 98 O2 Delivery Mechanical Ventilator Mechanical Ventilator Mechanical Ventilator O2 Flow Rate 21.00 21.00 21.00 FiO2 21 11/17/20 11/17/20 11/17/20 11/17/20 11:23 12:00 12:00 12:42 Temp 36.6 Pulse 58 59 Resp 18 B/P (MAP) 105/62 (76) Pulse Ox 97 97 O2 Delivery Mechanical Ventilator Mechanical Ventilator O2 Flow Rate 21.00 FiO2 21 11/17/20 11/17/20 11/17/20 11/17/20 12:46 13:00 14:00 14:48 Pulse 57 56 55 Resp 12 0 18 B/P (MAP) 108/62 109/63 (78) 103/61 (76) Pulse Ox 97 97 97 O2 Delivery Mechanical Ventilator Mechanical Ventilator O2 Flow Rate 21.00 21.00 FiO2 21 11/17/20 11/17/20 11/17/20 11/17/20 15:00 15:38 16:00 16:00 Temp 37.3 Pulse 55 54 Resp 18 18 B/P (MAP) 104/60 (75) 109/59 (76) Pulse Ox 97 97 97 O2 Delivery Mechanical Ventilator Mechanical Ventilator Mechanical Ventilator O2 Flow Rate 21.00 21.00 FiO2 21 11/17/20 11/17/20 11/17/20 16:21 17:00 18:00 Pulse 55 57 Resp 14 B/P (MAP) 107/61 105/58 (74) 110/63 (79) Pulse Ox 97 96 O2 Delivery Mechanical Ventilator Mechanical Ventilator O2 Flow Rate 21.00 21.00 11/17/20 00:00 Intake Total 400 ml Output Total 1450 ml Balance -1050 ml Capillary Refill : Less Than 3 Seconds Constitutional: appears stated age; No apparent distress; well-developed, well- nourished, other (Intubated/ventilated.) HEENT: No discharge, No ulceration, No xanthelasmas are seen Neck: No carotid bruit Respiratory: chest is bilaterally symmetric, lungs clear to auscultation, other (Intubated/ventilated.) Cardiovascular: regular rate-rhythm, bradycardia, S1 and S2 Gastrointestinal: soft, audible bowel sounds; No spleenomegaly Rectal: deferred Extremities: No clubbing, No cyanosis, No significant edema Neurologic/Psychiatric: other (Intubated/ventilated.) Skin: No rash, No ulcerations Data Review Labs Laboratory Tests 11/17/20 02:15: Blood Gas Puncture Site RT RAD, Blood Gas Patient Temperature 37.1, Arterial Blood pH 7.29*L, Arterial Blood Partial Pressure CO2 37, Arterial Blood Partial Pressure O2 81, Arterial Blood HCO3 18L, Arterial Blood Total CO2 18.6L, Arterial Blood Oxygen Saturation 95, Arterial Blood Base Excess -7.8L, Fred Test YES-POS, Blood Gas Ventilator Setting YES, Blood Gas Inspired Oxygen 21% 11/17/20 02:52: White Blood Count 19.7H, Red Blood Count 3.38L, Hemoglobin 10.6#L, Hematocrit 32L, Mean Corpuscular Volume 94, Mean Corpuscular Hemoglobin 31, Mean Corpusc ular Hemoglobin Concent 33, Red Cell Distribution Width 13.0, Platelet Count 337, Mean Platelet Volume 9.3, Immature Granulocyte % (Auto) 1, Neutrophils (%) (Auto) 86H, Lymphocytes (%) (Auto) 6L, Monocytes (%) (Auto) 6, Eosinophils (%) (Auto) 2, Basophils (%) (Auto) 0, Neutrophils # (Auto) 16.9H, Lymphocytes # (Auto) 1.1, Monocytes # (Auto) 1.2H, Eosinophils # (Auto) 0.4H, Basophils # (Auto) 0.1, Immature Granulocyte # (Auto) 0.1, Sodium Level 139, Potassium Level 3.2L, Chloride Level 111#H, Carbon Dioxide Level 18L, Anion Gap 10, Blood Urea Nitrogen 26H, Creatinine 1.04, Estimat Glomerular Filtration Rate > 60, BUN/Creatinine Ratio 25, Glucose Level 90, Calcium Level 7.7L, Phosphorus Level 2.7, Magnesium Level 1.7, Triglycerides Level 157H, Cholesterol Level 138, LDL Cholesterol Direct 91, VLDL Cholesterol 31, HDL Cholesterol 25L 11/17/20 11:24: Glucometer 101 11/17/20 17:22: Glucometer 83 Microbiology 11/16/20 MRSA Screen - Final, Complete MRSA not isolated 11/16/20 Blood Culture - Preliminary, Resulted No growth ECG Impression ECG Initial ECG Rhythm: Normal Sinus A/P-Cardiology Assessment/Admission Diagnosis Sepsis, drug overdose, bradycardia, positive troponin. Plan Defer treatment of sepsis, drug overdose to the primary team and Dr. Spaulding. Bradycardia likely due to methadone. No hemodynamic compromise. Borderline positive troponin. Likely type II MA however MA due to plaque rupture cannot be ruled out. No immediate need for coronary angiography. We will continue to follow the patient. Recommend Lovenox if no evidence of brain bleed. Thank you for your consultation. Please call me if you have any questions. Jeff Wheeler MD, FACP, FACC, FSCAI, FHRS, CCDS Interventional Cardiology Cardiac Electrophysiology Vascular Medicine and Endovascular Interventions John WHEELER MD November 17, 2020 18:27
[2020-11-17] MEDS ORDERED: D5 LR IV SOLUTION 1,000 ML IV ONE (22:59)
[2020-11-17] MEDS: D5 LR IV SOLUTION 1,000 ML IV SCH (23:16)
[2020-11-18 01:55] LABS: BASOPHILS # (AUTO) 0.1 10^3/uL (0.0-0.1); BASOPHILS % (AUTO) 0 % (0-10); EOSINOPHILS # (AUTO) 0.5 10^3/uL (0.0-0.3); EOSINOPHILS % (AUTO) 3 % (0-10); HEMATOCRIT 30 % (40-54); HEMOGLOBIN 9.9 g/dL (13.3-17.7); LYMPHOCYTES # (AUTO) 1.2 10^3/uL (1.0-4.0); LYMPHOCYTES % (AUTO) 7 % (12-44); MEAN CORPUSCULAR HEMOGLOBIN 31 pg (25-34); MEAN CORPUSCULAR HGB CONC 33 g/dL (32-36); MEAN CORPUSCULAR VOLUME 96 fL (80-99); MEAN PLATELET VOLUME 9.5 fL (9.0-12.2); MONOCYTES % (AUTO) 5 % (0-12); NEUTROPHILS % (AUTO) 85 % (42-75); PLATELET COUNT 301 10^3/uL (130-400)
[2020-11-18] MEDS ORDERED: POTASSIUM CL 10MEQ/50ML IVPB 100 ML IV ONE (02:09)
[2020-11-18 02:12] LABS: BUN/CREATININE RATIO 14; CALCIUM 7.9 MG/DL (8.5-10.1); CARBON DIOXIDE 17 MMOL/L (21-32); CHLORIDE 113 MMOL/L (98-107); CREATININE SERUM 0.85 MG/DL (0.60-1.30); GFR ESTIMATED > 60; GLUCOSE 152 MG/DL (70-105); MAGNESIUM 1.9 MG/DL (1.6-2.4); PHOSPHORUS 1.8 MG/DL (2.3-4.7); POTASSIUM 3.5 MMOL/L (3.6-5.0); SODIUM 139 MMOL/L (135-145)
[2020-11-18] MEDS: POTASSIUM CL 10MEQ/50ML IVPB 50 ML IV SCH ×2 (02:15→02:21)
[2020-11-18] MEDS: MAGNESIUM 1 GM/100 ML IVPB 100 ML IV SCH (02:15)
[2020-11-18] MEDS: KCL 20 MEQ TAB (K-DUR) PO SCH (02:16)
[2020-11-18 02:34] VITALS: BP 114/68
[2020-11-18] MEDS: fentaNYL DRIP PRE-MIX 250 ML IV SCH ×5 (02:44→22:37)
[2020-11-18 02:45] LABS: ABG BASE EXCESS -8.4 MMOL/L (-2.5-2.5); ABG OXYGEN SATURATION 96 % (94-100); ABG PCO2 32 MMHG (35-45); ABG PO2 71 MMHG (79-93); ABG TCO2 17.5 MMOL/L (21.0-31.0)
[2020-11-18 02:50] LABS: ABG PH 7.33 (7.37-7.43)
[2020-11-18 02:51] LABS: ALLENS TEST YES-POS; INSPIRED O2 21%; PATIENT TEMP 36.4; VENTILATOR YES
--- NOTE | 2020-11-18 03:55 | Pulmonary Progress Note ---
[employer] MED STUDENT 11/18/20 0355: Subjective Date Seen by a Provider: November 18, 2020 Time Seen by a Provider: 03:51 Subjective/Events-last exam Pt. remains intubated and sedated. Vitals stable per monitor. Review of Systems General: Other (unabel to obtain due to pt. condition) Pulmonary: Other (unable to assess) Cardiovascular: Other (unable to assess) Gastrointestinal: Other (unable to assess) Genitourinary: Other (unable to assess) Musculoskeletal: other (unable to obtain) Neurological: Other (unable to assess) Sepsis Event Evaluation Height, Weight, BMI Height: '" Weight: lbs. oz. kg; 21.96 BMI Method:Estimated Focused Exam Lactate Level 11/16/20 14:35: Lactic Acid Level 0.70 Exam Exam Vital Signs Date Time Temp Pulse Resp B/P (MAP) Pulse Ox O2 Delivery O2 Flow Rate FiO2 11/18/20 03:11 97 Mechanical Ventilator 21 11/18/20 02:48 36.4 11/18/20 02:34 48 18 94 21 11/18/20 00:47 131/69 11/17/20 23:37 97 Mechanical Ventilator 21 11/17/20 23:02 36.2 11/17/20 23:00 57 12 112/62 (79) 95 Mechanical Ventilator 21.00 11/17/20 22:40 92/65 11/17/20 22:35 123/66 11/17/20 22:00 54 17 115/66 (82) 97 Mechanical Ventilator 21.00 11/17/20 21:07 55 16 97 21 11/17/20 21:00 56 17 114/65 (81) 97 Mechanical Ventilator 21.00 11/17/20 20:27 36.6 11/17/20 20:00 56 18 106/62 (77) 96 Mechanical Ventilator 21.00 11/17/20 19:37 60 11/17/20 19:37 97 Mechanical Ventilator 21 11/17/20 19:22 37.3 11/17/20 19:00 56 109/64 (79) 96 Mechanical Ventilator 21.00 11/17/20 18:52 54 18 97 21 11/17/20 18:00 57 110/63 (79) 96 Mechanical Ventilator 21.00 11/17/20 17:00 55 14 105/58 (74) 97 Mechanical Ventilator 21.00 5/23/21 16:21 107/61 11/17/20 16:00 54 18 109/59 (76) 97 Mechanical Ventilator 21.00 11/17/20 16:00 97 Mechanical Ventilator 21 11/17/20 15:38 37.3 11/17/20 15:00 55 18 104/60 (75) 97 Mechanical Ventilator 21.00 11/17/20 14:48 55 18 97 21 11/17/20 14:00 56 0 103/61 (76) 97 Mechanical Ventilator 21.00 11/17/20 13:00 57 12 109/63 (78) 97 Mechanical Ventilator 21.00 11/17/20 12:46 108/62 11/17/20 12:42 59 11/17/20 12:00 97 Mechanical Ventilator 21 11/17/20 12:00 58 18 105/62 (76) 97 Mechanical Ventilator 21.00 11/17/20 11:23 36.6 11/17/20 11:21 63 18 98 21 11/17/20 11:00 58 14 98/60 (73) 98 Mechanical Ventilator 21.00 11/17/20 10:00 58 14 94/59 (71) 99 Mechanical Ventilator 21.00 11/17/20 09:00 61 17 94/58 (70) 97 Mechanical Ventilator 21.00 11/17/20 08:21 62 18 97 21 11/17/20 08:00 61 93/58 (70) 98 Mechanical Ventilator 21.00 11/17/20 08:00 97 Mechanical Ventilator 21 11/17/20 07:56 96/58 11/17/20 07:24 36.8 11/17/20 07:00 62 101/61 (74) 98 Mechanical Ventilator 21.00 11/17/20 07:00 63 11/17/20 06:29 63 18 98 21 11/17/20 06:00 65 16 94/58 (70) 97 Mechanical Ventilator 21.00 11/17/20 05:00 67 15 95/58 (70) 97 Mechanical Ventilator 21.00 11/17/20 04:00 70 18 93/59 (70) 98 Mechanical Ventilator 21.00 11/17/20 04:00 99 Mechanical Ventilator 21 I & O 11/18/20 07:00 Intake Total 500 ml Output Total 1800 ml Balance -1300 ml Height & Weight Height: '" Weight: lbs. oz. kg; 21.96 BMI Method:Estimated General Appearance: Chronically ill, Thin, Other (intubated and sedated) HEENT: Moist Mucous Membranes; No Scleral Icterus (L), No Scleral Icterus (R); Other (pupils 2mm) Neck: Normal Inspection, Supple Respiratory: Lungs Clear, No Accessory Muscle Use, No Respiratory Distress, Other (intubated) Cardiovascular: No Edema, No Murmur, Bradycardia Capillary Refill: Less Than 3 Seconds Peripheral Pulses: 1+ Dorsalis Pedis (R); 0 Left Dors-Pedis (L) (Left lower extrem amputated); 2+ Radial Pulses (R), 2+ Radial Pulses (L) Gastrointestinal: normal bowel sounds, soft; No distended Extremity: No Pedal Edema, Other (no edema. s/p left foot amputation) Neurologic/Psychiatric: Other (sedated) Skin: Normal Color, Warm/Dry; No Jaundice, No Mottled; Other (scatttered lesions to extremities, open sore on left stump) Lymphatic: No Adenopathy Results Lab Laboratory Tests 11/16/20 14:35 11/17/20 02:52 11/18/20 01:44 Assessment/Plan Assessment/Plan Acute respiratory failure secondary to OD -Propofol and Fentanyl -450,18,5 and 21% PNA LLL with sepsis -Valerio cultures pending -Continue Abx Septic shock -IVF -Echo ordered yesterday -Levophed - titrate to D/C Bradycardia - secondary to Methadone. -Monitor -Poison control following Leukocytosis -continue antibiotic coverage -continue to monitor Hypokalemia -Replete today -continue to monitor Hypomagnesemia/Hypophosphatemia -Replete today -continue to monitor GI prophylaxis -protonix DVT prophylaxis lovenox Amputation with stump infection Methamphetamine -Education Methadone OD Problem List MANOJ SPAULDING DO 11/18/20 0513: Assessment/Plan Assessment/Plan Acute respiratory failure secondary to OD -Propofol 30 and Fentanyl 250 - -450,18,5 and 21% -Start TF per dietary recommendations. PNA LLL with sepsis with probable aspiration -MRSA is negative -D/C Vanco and continue Zosyn. -Valerio cultures pending -Continue Abx Septic shock -IVF - Continue IVF and titrate Levophed. -Echo ordered yesterday -Levophed - titrate to D/C Bradycardia - secondary to Methadone. -Monitor -Poison control following Leukocytosis -continue antibiotic coverage -continue to monitor Hypokalemia -Replete today -continue to monitor Hypomagnesemia/Hypophosphatemia -Replete today -continue to monitor GI prophylaxis -protonix DVT prophylaxis lovenox Amputation with stump infection Methamphetamine -Education Methadone OD Supervisory-Addendum Brief Verification & Attestation Participated in pt care: history, MDM, physical Personally performed: exam, history, MDM, supervision of care Care discussed with: Medical Student Procedures: n/a Results interpretation: Verified all documentation Verification and Attestation of Medical Student E/M Service A medical student performed and documented this service in my presence. I reviewed and verified all information documented by the medical student and made modifications to such information, when appropriate. I personally performed the physical exam and medical decision making. Manoj Spaulding, November 21, 2020,12:25 [employer] STUDENT November 18, 2020 03:55 MANOJ SPAULDING DO November 18, 2020 05:13
[2020-11-18] MEDS: PIPERACILLIN/TAZO 4.5 GM/NS 100 ML IV SCH ×6 (05:28→21:07)
[2020-11-18] MEDS: D5 LR IV SOLUTION 1,000 ML IV SCH ×3 (05:28→17:44)
[2020-11-18 06:28] VITALS: BP 127/70
[2020-11-18] MEDS: PANTOPRAZOLE 40 MG (PROTONIX) VIAL IV SCH (07:31)
[2020-11-18] MEDS: risperiDONE 1 MG (RisperDAL) TAB PO SCH ×2 (07:31→20:36)
[2020-11-18] MEDS: ENOXAPARIN 40 MG/0.4 ML (LOVENOX) SYR SC SCH (07:31)
--- NOTE | 2020-11-18 07:32 | Diagnostic Imaging Report ---
INDICATION: Ventilated patient. Respiratory failure. COMPARISON: 11/17/2020 FINDINGS: Single frontal radiographic view of the chest was obtained and demonstrates indwelling endotracheal tube with tip below the clavicular heads and above the flor. Gastric tube tip terminates in the stomach. Right internal jugular central venous catheter is also seen with tip in lower SVC. Cardiac silhouette and pulmonary vasculature are within normal limits. Inferolateral margins of the right lung are not included in the [id number], but lung gee are otherwise clear. There is no focal consolidation, large effusion, no pneumothorax. Osseous structures show no gross acute abnormalities IMPRESSION: 1. Lines and tubes as above. 2. Otherwise, no acute cardiopulmonary process. Dictated by: Dictated on workstation # [id number]
[2020-11-18] MEDS: PROPOFOL DRIP (ICU) 100 ML IV SCH ×2 (07:55→12:03)
[2020-11-18] MEDS ORDERED: POTASSIUM PHOSPHATE INJ 30 MM in NS (IVPB) 250 ML IV ONE (08:00)
--- NOTE | 2020-11-18 08:45 | Cardiology Progress Note ---
Subjective Date Seen by Provider: November 18, 2020 Time Seen by Provider: 08:41 Subjective/Events-last exam Patient is intubated and sedated, unable to provide any history Review of Systems General: Other (Unable to provide review of system) Focused Exam Lactate Level 11/16/20 14:35: Lactic Acid Level 0.70 Objective-Cardiology Exam Last Set of Vital Signs Vital Signs 11/18/20 11/18/20 11/18/20 11/18/20 11/18/20 06:00 06:28 06:58 07:42 07:55 Temp 36.6 Pulse 44 Resp 18 B/P (MAP) 105/62 Pulse Ox 94 O2 Delivery Mechanical Ventilator O2 Flow Rate 21.00 FiO2 21 Capillary Refill : Less Than 3 Seconds I&O Intake and Output 11/18/20 00:00 Intake Total 250 ml Output Total 2130 ml Balance -1880 ml Intake Oral 0 ml IV Total 250 ml Output Urine Total 2130 ml General: Other (Sedated and intubated) HEENT: Atraumatic, PERRLA Neck: Supple, No JVD Lungs: Normal Air Movement, Other (Bilateral rhonchi) Heart: Regular Rate, Normal S1, Normal S2 Abdomen: Normal Bowel Sounds Extremities: No Clubbing, Other (Mild edema, BKA) Skin: No Rashes Neuro: Other (Sedated and intubated) Psych/Mental Status: Other (Sedated and intubated) Results Lab Laboratory Tests 11/18/20 01:44 A/P-Cardiology Admission Diagnosis Acute respiratory failure Pneumonia Sepsis Sinus bradycardia Assessment/Plan Acute respiratory failure secondary to drug overdose, sedated and intubated, managed by primary care team Pneumonia, receiving antibiotic, borderline hypotension, continue to monitor blood pressure, use IV fluid for sepsis Sinus bradycardia, better at this time, continue to monitor heart rate and blood pressure Sepsis with septic shock, receiving IV fluids, continue to monitor Echocardiogram was done on 11/17/2020 showing normal LV size, EF 55 to 65% History of left BKA. Methadone and methamphetamine overdose. MJ TYLER MD November 18, 2020 08:45
[2020-11-18 10:34] VITALS: BP 93/60
[2020-11-18] MEDS ORDERED: VANCOMYCIN INJECTION 1,000 MG in NS (IVPB) 250 ML IV SCH (13:00)
[2020-11-18] MEDS: NOREPINEPHRINE 8 MG/250 ML 250 ML IV SCH (14:24)
[2020-11-18 14:56] VITALS: BP 95/57
--- NOTE | 2020-11-18 15:18 | Progress Note - Hospitalist ---
Subjective HPI/CC On Admission Date Seen by Provider: November 18, 2020 Time Seen by Provider: 09:10 Pt is a 65yoCM with a PMH of IDDMII, HLD, and chronic pain who presented to the ER due to decreased responsiveness. He is currently intubated and sedated and unable to provide any history. All history obtained from the records. I'm unsure when this all started but daughter apparently was with him and kept trying to wake him for a couple of hours.. Information from the record indicates his daughter was aware and is concerned about his medications as he hides them. He had a GCS of 8 on arrival and was intubated in the ER. He is currently sedated and appears comfortable. Subjective/Events-last exam He remains intubated and sedated. Focused Exam Lactate Level 11/16/20 14:35: Lactic Acid Level 0.70 Objective Exam Vital Signs Vital Signs Date Time Temp Pulse Resp B/P (MAP) Pulse Ox O2 Delivery O2 Flow Rate FiO2 11/18/20 14:56 54 18 93 21 11/18/20 14:24 102/61 11/18/20 12:00 Mechanical Ventilator 11/18/20 12:00 21.00 11/18/20 11:53 36.4 Capillary Refill : Less Than 3 Seconds General Appearance: No Apparent Distress, Other (Debated and sedated) Respiratory: Lungs Clear, Normal Breath Sounds, No Respiratory Distress, Other (Intubated and mechanically ventilated) Cardiovascular: Regular Rate, Rhythm, No Murmur Gastrointestinal: Normal Bowel Sounds, Soft Extremity: Inflammation, Pedal Edema, Other (Left foot amputation with stump wound) Neurologic/Psychiatric: Other (Sedated) Skin: Warm/Dry, Erythema (Left posadas superior to stump wound) Results/Procedures Lab Laboratory Tests 11/18/20 01:44 Patient resulted labs reviewed. 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 DVT ppx: Lovenox Diagnosis/Problems Diagnosis/Problems (1) Septic shock Status: Acute (2) Left lower lobe pneumonia Status: Acute Qualifiers: Pneumonia type: due to unspecified organism Qualified Codes: J18.9 - Pneumonia, unspecified organism (3) Amputation stump infection Status: Acute (4) Drug overdose, multiple drugs Status: Acute Qualifiers: Encounter type: initial encounter Injury intent: undetermined intent Qualified Codes: T50.914A - Poisoning by multiple unspecified drugs, medicaments and biological substances, undetermined, initial encounter (5) T2DM (type 2 diabetes mellitus) Status: Acute Qualifiers: Diabetes mellitus mcc insulin use: with mcc use Diabetes mellitus complication status: with skin complications Diabetes mellitus complication detail: with foot ulcer Qualified Codes: E11.621 - Type 2 diabetes mellitus with foot ulcer; L97.509 - Non-pressure chronic ulcer of other part of unspecified foot with unspecified severity; Z79.4 - residential (current) use of insulin FLORY BARBOSA MD November 18, 2020 15:18
--- NOTE | 2020-11-18 16:12 | Diagnostic Imaging Report ---
HISTORY: Wound, osteomyelitis COMPARISON: Radiographs from 10/08/2020 TECHNIQUE: 2 views of the left ankle FINDINGS: There has been prior amputation at the level of the ankle joint. There is heterotopic ossification at the amputation site. There is sclerosis at the distal left tibia, which may represent a bone infarct. There is moderate soft tissue swelling, with ulcerations. No radiopaque foreign body is seen. No periosteal reaction or cortical destruction is seen. IMPRESSION: 1. Prior amputation at the left ankle, with soft tissue swelling and ulceration, but no radiographic findings of osteomyelitis seen. Please note that MRI is more sensitive. Dictated by: Dictated on workstation # [id number]
[2020-11-18 18:32] VITALS: BP 96/63
[2020-11-18 21:21] VITALS: BP 96/60
[2020-11-19] MEDS: LACTATED RINGERS 1,000 ML IV SCH ×4 (00:01→21:54)
[2020-11-19] MEDS: inSUlin ASPART (NovoLOG) 1 UNIT/0.01 ML (CHARGE PER UNIT) SQ SCH ×4 (00:02→17:30)
[2020-11-19] MEDS: NOREPINEPHRINE 8 MG/250 ML 250 ML IV SCH (01:45)
[2020-11-19] MEDS: PROPOFOL DRIP (ICU) 100 ML IV SCH (02:00)
[2020-11-19 02:11] VITALS: BP 56/55
[2020-11-19 03:38] LABS: BASOPHILS % (AUTO) 0 % (0-10); EOSINOPHILS # (AUTO) 0.4 10^3/uL (0.0-0.3); EOSINOPHILS % (AUTO) 4 % (0-10); HEMATOCRIT 27 % (40-54); LYMPHOCYTES # (AUTO) 1.1 10^3/uL (1.0-4.0); LYMPHOCYTES % (AUTO) 10 % (12-44); MEAN CORPUSCULAR HEMOGLOBIN 32 pg (25-34); MEAN CORPUSCULAR HGB CONC 33 g/dL (32-36); MEAN CORPUSCULAR VOLUME 95 fL (80-99); MEAN PLATELET VOLUME 9.7 fL (9.0-12.2); MONOCYTES # (AUTO) 0.7 10^3/uL (0.0-1.0); MONOCYTES % (AUTO) 6 % (0-12); NEUTROPHILS # (AUTO) 8.5 10^3/uL (1.8-7.8); NEUTROPHILS % (AUTO) 79 % (42-75); PLATELET COUNT 230 10^3/uL (130-400); WHITE BLOOD COUNT 10.8 10^3/uL (4.3-11.0)
[2020-11-19] MEDS: fentaNYL DRIP PRE-MIX 250 ML IV SCH (03:45)
[2020-11-19 03:48] LABS: ABG OXYGEN SATURATION 98 % (94-100); ABG PCO2 38 MMHG (35-45); ABG PH 7.35 (7.37-7.43); ABG PO2 93 MMHG (79-93); ABG TCO2 21.8 MMOL/L (21.0-31.0)
[2020-11-19 03:52] LABS: ALLENS TEST YES-POS; CHLORIDE 113 MMOL/L (98-107); POTASSIUM 3.4 MMOL/L (3.6-5.0); SODIUM 142 MMOL/L (135-145)
[2020-11-19 03:53] LABS: CALCIUM 7.9 MG/DL (8.5-10.1); GLUCOSE 225 MG/DL (70-105); INSPIRED O2 18; PATIENT TEMP 37; VENTILATOR YES
[2020-11-19 03:55] LABS: CARBON DIOXIDE 21 MMOL/L (21-32)
[2020-11-19 03:57] LABS: CREATININE SERUM 0.87 MG/DL (0.60-1.30); GFR ESTIMATED > 60; PHOSPHORUS 1.8 MG/DL (2.3-4.7)
[2020-11-19 03:58] LABS: BUN/CREATININE RATIO 7
[2020-11-19 03:59] LABS: MAGNESIUM 1.5 MG/DL (1.6-2.4)
--- NOTE | 2020-11-19 04:38 | Pulmonary Progress Note ---
[employer] MED STUDENT 11/19/20 0438: Subjective Date Seen by a Provider: November 19, 2020 Time Seen by a Provider: 04:34 Subjective/Events-last exam Patient remains sedated and intubated. Vitals stable per monitor. Review of Systems General: Other (unable to asess due to pt. condition) HEENT: Other (unable to assess) Cardiovascular: Other (unable to assess) Gastrointestinal: Other (unable to assess) Genitourinary: Other (unable to assess) Musculoskeletal: other (unable to assess) Neurological: Other (unable to assess) Sepsis Event Evaluation Height, Weight, BMI Height: '" Weight: lbs. oz. kg; 21.96 BMI Method:Estimated Focused Exam Lactate Level 11/16/20 14:35: Lactic Acid Level 0.70 Exam Exam Vital Signs Date Time Temp Pulse Resp B/P (MAP) Pulse Ox O2 Delivery O2 Flow Rate FiO2 11/19/20 03:50 Mechanical Ventilator 11/19/20 03:29 37.0 11/19/20 02:11 56 18 94 11/19/20 02:00 89/54 11/19/20 01:45 93/55 11/19/20 01:00 55 11/19/20 00:28 Mechanical Ventilator 21 11/18/20 23:40 36.8 11/18/20 23:00 62 18 93/57 (69) 91 Mechanical Ventilator 21.00 11/18/20 22:00 58 18 86/53 (64) 91 Mechanical Ventilator 21.00 11/18/20 21:21 56 18 91 21 11/18/20 21:00 53 18 96/60 (72) 91 Mechanical Ventilator 21.00 11/18/20 20:45 Mechanical Ventilator 21 11/18/20 20:00 54 18 102/61 (75) 90 Mechanical Ventilator 21.00 11/18/20 20:00 36.8 11/18/20 19:30 55 18 104/61 (75) 91 Mechanical Ventilator 21.00 11/18/20 19:00 55 11/18/20 18:32 54 18 91 21 11/18/20 18:00 55 37 94/60 (71) 91 Mechanical Ventilator 21.00 11/18/20 17:00 56 17 99/59 (72) 90 Mechanical Ventilator 21.00 11/18/20 16:00 90 Mechanical Ventilator 21 11/18/20 16:00 57 17 96/57 (70) 90 Mechanical Ventilator 21.00 11/18/20 16:00 36.3 11/18/20 15:00 56 64 98/61 (73) 93 Mechanical Ventilator 21.00 11/18/20 14:56 54 18 93 21 11/18/20 14:24 102/61 11/18/20 14:00 56 35 98/61 (73) 93 Mechanical Ventilator 21.00 11/18/20 13:09 52 11/18/20 13:00 55 43 91/60 (70) 93 Mechanical Ventilator 21.00 11/18/20 12:03 90/60 11/18/20 12:00 94 Mechanical Ventilator 21 11/18/20 12:00 52 17 85/57 (66) 94 Mechanical Ventilator 21.00 11/18/20 11:53 36.4 11/18/20 11:00 51 17 94/60 (71) 94 Mechanical Ventilator 21.00 11/18/20 10:34 52 18 94 21 11/18/20 10:00 52 17 94/60 (71) 94 Mechanical Ventilator 21.00 11/18/20 09:00 55 18 78/53 (61) 94 Mechanical Ventilator 21.00 11/18/20 08:00 94 Mechanical Ventilator 21 11/18/20 08:00 60 48 93/69 (77) 93 Mechanical Ventilator 21.00 11/18/20 07:55 105/62 11/18/20 07:42 36.6 11/18/20 07:00 48 18 122/66 (84) 94 Mechanical Ventilator 21.00 11/18/20 06:58 44 11/18/20 06:28 47 18 94 21 11/18/20 06:00 46 18 121/68 (85) 94 Mechanical Ventilator 21.00 11/18/20 05:26 90/58 11/18/20 05:00 50 17 94/60 (71) 94 Mechanical Ventilator 21.00 11/18/20 04:57 125/66 I & O 11/19/20 07:00 Intake Total 560 ml Output Total 2700 ml Balance -2140 ml Height & Weight Height: '" Weight: lbs. oz. kg; 21.96 BMI Method:Estimated General Appearance: No Apparent Distress, Other (intubated and sedated) HEENT: Moist Mucous Membranes; No Scleral Icterus (L), No Scleral Icterus (R); Other (pupils 2mm) Neck: Normal Inspection, Supple Respiratory: No Accessory Muscle Use, No Respiratory Distress, Rhonci, Other (Intubated and mechanically ventilated) Cardiovascular: No Edema, Bradycardia (50's per monitor) Capillary Refill: Less Than 3 Seconds Peripheral Pulses: 1+ Dorsalis Pedis (R); 0 Left Dors-Pedis (L) (Left lower extrem amputated); 2+ Radial Pulses (R), 2+ Radial Pulses (L) Gastrointestinal: normal bowel sounds, soft; No distended Extremity: Normal Capillary Refill, Inflammation, Pedal Edema (trace R foot), Other (Left foot amputation with stump wound/covered with dressing) Neurologic/Psychiatric: Other (Sedated) Skin: Warm/Dry, Erythema (Left posadas superior to stump wound.) Lymphatic: No Adenopathy Results Lab Laboratory Tests 11/18/20 01:44 11/19/20 03:22 Assessment/Plan Assessment/Plan Acute respiratory failure secondary to OD -Propofol and Fentanyl -Vented, 25% FIO2 and PEEP 5 -Tube feeds started yesterday PNA LLL with sepsis -prelim blood cx negative -Valerio cultures pending -sputum staph aureus -Zosyn and vancomycin Septic shock -LR @ 100ml/hr -Echo showed EF 55-65% -Levophed - titrated up slightly overnight due to hypotension Bradycardia - secondary to Methadone. -Monitor -Poison control following Leukocytosis- Improving -WBC down from 19 yesterday to 10.8 today -continue antibiotic coverage -continue to monitor Hypokalemia -Replete today -continue to monitor Hypomagnesemia/Hypophosphatemia -Replete today -continue to monitor GI prophylaxis -protonix DVT prophylaxis lovenox Amputation with stump infection -continue antibiotics Methamphetamine -Education Methadone OD MANOJ SPAULDING DO 11/19/20 0512: Assessment/Plan Assessment/Plan Acute respiratory failure secondary to OD -Propofol and Fentanyl -HOLD SEDATION -WILL EXTUBATE PT ONCE AWAKE. -Vented, 25% FIO2 and PEEP 5 -Tube feeds started yesterday PNA LLL with sepsis -prelim blood cx negative -Valerio cultures pending -sputum staph aureus -Zosyn and vancomycin Septic shock -LR @ 100ml/hr -Echo showed EF 55-65% -Levophed - titrated up slightly overnight due to hypotension Bradycardia - secondary to Methadone. -Monitor -Poison control following Leukocytosis- Improving -WBC down from 19 yesterday to 10.8 today -continue antibiotic coverage -continue to monitor Hypokalemia -Replete today -continue to monitor Hypomagnesemia/Hypophosphatemia -Replete today -continue to monitor GI prophylaxis -protonix DVT prophylaxis lovenox Amputation with stump infection -continue antibiotics Methamphetamine -Education Methadone OD Supervisory-Addendum Brief Verification & Attestation Participated in pt care: history, MDM, physical Personally performed: exam, history, MDM, supervision of care Care discussed with: Medical Student Procedures: n/a Results interpretation: Verified all documentation Verification and Attestation of Medical Student E/M Service A medical student performed and documented this service in my presence. I reviewed and verified all information documented by the medical student and made modifications to such information, when appropriate. I personally performed the physical exam and medical decision making. Manoj Spaulding, November 21, 2020,12:33 [employer] STUDENT November 19, 2020 04:38 MANOJ SPAULDING DO November 19, 2020 05:12
[2020-11-19] MEDS: POTASSIUM CL 10MEQ/50ML IVPB 50 ML IV SCH ×3 (04:43→06:17)
[2020-11-19] MEDS: MAGNESIUM 1 GM/100 ML IVPB 100 ML IV SCH ×3 (04:43→06:17)
[2020-11-19] MEDS: KCL 20 MEQ TAB (K-DUR) PO SCH (04:43)
[2020-11-19] MEDS ORDERED: ZIPRASIDONE 20 MG INJ (GEODON) VIAL IM PRN (05:15)
[2020-11-19] MEDS ORDERED: risperiDONE 2 MG (RisperDAL) TAB PO ONE (05:15)
[2020-11-19] MEDS ORDERED: WATER (STERILE) FOR INJ 10 ML BTL INJ SCH (05:15)
[2020-11-19] MEDS: PIPERACILLIN/TAZO 4.5 GM/NS 100 ML IV SCH ×6 (05:46→21:54)
[2020-11-19 06:21] VITALS: BP 131/76
[2020-11-19] MEDS ORDERED: DexMEDEtomidine 250 ML DRIP 250 ML IV SCH (06:30)
[2020-11-19] MEDS ORDERED: meTOprolol TARTRATE 25 MG (LOPRESSOR) TABLET ONE (07:16)
[2020-11-19] MEDS: risperiDONE 1 MG (RisperDAL) TAB PO SCH ×2 (07:53→21:54)
[2020-11-19] MEDS: meTOprolol TARTRATE 25 MG (LOPRESSOR) TABLET PO SCH ×2 (07:53→21:54)
[2020-11-19] MEDS: PANTOPRAZOLE 40 MG (PROTONIX) VIAL IV SCH (07:53)
[2020-11-19] MEDS: ENOXAPARIN 40 MG/0.4 ML (LOVENOX) SYR SC SCH (07:54)
--- NOTE | 2020-11-19 07:56 | Diagnostic Imaging Report ---
INDICATION: Mechanical ventilation, dyspnea, ICU care. TECHNIQUE: Single view chest 2:55 AM. CORRELATION STUDY: 11/18/2020 FINDINGS: Endotracheal tube projects over the trachea below the clavicles above the flor. Right IJ central line unchanged over the low SVC. Gastric tube passes below the left hemidiaphragm. Mediastinal structures are generally stable. Perhaps increasing opacity at the right lung base. Endovascular stent over the neck on the left. IMPRESSION: 1. Stable support lines and tubes. 2. Asymmetric opacity at the right lung base may be reflective of atelectasis and/or infiltrate. Follow-up recommended. Dictated by: Dictated on workstation # [id number]
[2020-11-19] MEDS ORDERED: POTASSIUM PHOSPHATE INJ 30 MM in NS (IVPB) 250 ML IV ONE (08:00)
[2020-11-19 08:15] VITALS: BP 156/76
[2020-11-19] MEDS ORDERED: meTOprolol TARTRATE 25 MG (LOPRESSOR) TABLET PO SCH (09:00)
[2020-11-19 10:45] VITALS: BP 89/56
[2020-11-19] MEDS: VANCOMYCIN INJECTION 1,000 MG in NS (IVPB) 250 ML IV SCH ×2 (11:08→22:14)
--- NOTE | 2020-11-19 11:20 | Progress Note - Hospitalist ---
Subjective HPI/CC On Admission Date Seen by Provider: November 19, 2020 Time Seen by Provider: 08:10 Pt is a 65yoCM with a PMH of IDDMII, HLD, and chronic pain who presented to the ER due to decreased responsiveness. He is currently intubated and sedated and unable to provide any history. All history obtained from the records. I'm unsure when this all started but daughter apparently was with him and kept trying to wake him for a couple of hours.. Information from the record indicates his daughter was aware and is concerned about his medications as he hides them. He had a GCS of 8 on arrival and was intubated in the ER. He is currently sedated and appears comfortable. Subjective/Events-last exam He was extubated this morning. He is still lethargic. He is wearing BiPAP. Focused Exam Lactate Level 11/16/20 14:35: Lactic Acid Level 0.70 Objective Exam Vital Signs Vital Signs Date Time Temp Pulse Resp B/P (MAP) Pulse Ox O2 Delivery O2 Flow Rate FiO2 11/19/20 10:45 96 12 94 40.00 11/19/20 10:00 151/96 (114) NIV Bilevel 11/19/20 08:00 37.1 11/19/20 06:21 30 Capillary Refill : Less Than 3 Seconds General Appearance: No Apparent Distress, WD/WN, Other (In BiPAP) Respiratory: No Respiratory Distress, Other (Coarse breath sounds bilaterally, wearing BiPAP) Cardiovascular: No Murmur, Tachycardia (Regular rhythm) Gastrointestinal: Normal Bowel Sounds, Non Tender, Soft Extremity: Pedal Edema, Other (Left foot amputation with diabetic foot ulcer) Neurologic/Psychiatric: Other (Lethargic, opens eyes and shakes head in response to questions) Skin: Normal Color, Warm/Dry Results/Procedures Lab Laboratory Tests 11/19/20 03:22 Patient resulted labs reviewed. Imaging: Reviewed Imaging Report Assessment/Plan Assessment and Plan Assess & Plan/Chief Complaint Acute respiratory failure with hypoxia Drug overdose Septic shock Pneumonia Diabetic foot wound s/p left foot amputation Respiratory failure likely multifactorial form drug overdose and pneumonia Extubated this morning 11/19 Sputum culture growing Staph aureus, final susceptibitlity pending Wound care consulted, culture performed Continue Zosyn and Vancomycin Wound culture with Staph aureus and group B Strep Remains on Levophed T2DM with diabetic foot wound Sliding scale insulin Polysubstance abuse 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 DVT ppx: Lovenox Endotracheally intubated, resolved Diagnosis/Problems Diagnosis/Problems (1) Septic shock Status: Acute (2) Left lower lobe pneumonia Status: Acute Qualifiers: Pneumonia type: due to unspecified organism Qualified Codes: J18.9 - Pneumonia, unspecified organism (3) Amputation stump infection Status: Acute (4) Drug overdose, multiple drugs Status: Acute Qualifiers: Encounter type: initial encounter Injury intent: undetermined intent Qualified Codes: T50.914A - Poisoning by multiple unspecified drugs, medicaments and biological substances, undetermined, initial encounter (5) T2DM (type 2 diabetes mellitus) Status: Acute Qualifiers: Diabetes mellitus skilled nursing insulin use: with skilled nursing use Diabetes mellitus complication status: with skin complications Diabetes mellitus complication detail: with foot ulcer Qualified Codes: E11.621 - Type 2 diabetes mellitus with foot ulcer; L97.509 - Non-pressure chronic ulcer of other part of unspecified foot with unspecified severity; Z79.4 - skilled nursing (current) use of insulin FLORY BARBOSA MD November 19, 2020 11:20
[2020-11-19 11:27] LABS: ABG BASE EXCESS -3.5 MMOL/L (-2.5-2.5); ABG OXYGEN SATURATION 98 % (94-100); ABG PCO2 40 MMHG (35-45); ABG PO2 90 MMHG (79-93); ABG TCO2 22.7 MMOL/L (21.0-31.0)
[2020-11-19 11:34] LABS: ABG PH 7.34 (7.37-7.43)
[2020-11-19 11:35] LABS: ALLENS TEST YES-POS; INSPIRED O2 40%; PATIENT TEMP 36.4; VENTILATOR YES
--- NOTE | 2020-11-19 11:59 | Cardiology Progress Note ---
Subjective Date Seen by Provider: November 19, 2020 Time Seen by Provider: 11:57 Subjective/Events-last exam Patient is laying down in bed, lethargic. No chest pain Review of Systems General: No Chills, No Night Sweats; Fatigue, Malaise; No Appetite, No Other HEENT: No Head Aches, No Visual Changes, No Eye Pain, No Ear Pain, No Dysphasia, No Sinus Congestion, No Post Nasal Drip, No Sore Throat, No Other Pulmonary: Dyspnea; No Cough, No Pleuritic Chest Pain, No Other Cardiovascular: No: Chest Pain, Palpitations, Orthopnea, Paroxysmal Noc. Dyspnea, Edema, Lt Headedness, Other Focused Exam Lactate Level 11/16/20 14:35: Lactic Acid Level 0.70 Objective-Cardiology Exam Last Set of Vital Signs Vital Signs 11/19/20 11/19/20 11/19/20 11/19/20 10:00 10:45 11:18 11:20 Temp 36.1 Pulse 96 Resp 12 B/P (MAP) 151/96 (114) Pulse Ox 94 O2 Delivery NIV Bilevel O2 Flow Rate 40.00 FiO2 40 Capillary Refill : Less Than 3 Seconds I&O Intake and Output 11/19/20 00:00 Intake Total 790 ml Output Total 2825 ml Balance -2035 ml Intake Oral 0 ml IV Total 610 ml Tube Feeding 60 ml Other 120 ml Output Urine Total 2825 ml General: Alert, Mild Distress HEENT: Atraumatic, PERRLA Neck: Supple, No JVD Lungs: Normal Air Movement, Other (Bilateral rhonchi) Heart: Regular Rate, Normal S1, Normal S2 Abdomen: Normal Bowel Sounds Extremities: No Clubbing, Other (Mild edema, BKA) Skin: No Rashes Neuro: Normal Speech Psych/Mental Status: Mood NL Results Lab Laboratory Tests 11/19/20 03:22 A/P-Cardiology Admission Diagnosis Acute respiratory failure Pneumonia Sepsis Sinus bradycardia Assessment/Plan Acute respiratory failure secondary to drug overdose, sedated, still lethargic, managed by primary care team Pneumonia, receiving antibiotic, borderline hypotension, continue to monitor blood pressure, use IV fluid for sepsis Sinus bradycardia, currently borderline sinus tachycardia after extubation. Continue to monitor Sepsis with septic shock, managed by primary care physician Echocardiogram was done on 11/17/2020 showing normal LV size, EF 55 to 65% History of left BKA. Methadone and methamphetamine overdose. NAYELI,BASHAR J MD November 19, 2020 11:59
[2020-11-19] MEDS ORDERED: INSU100I34 SC (15:16)
[2020-11-19] MEDS ORDERED: IBUP-1773 PO (15:16)
[2020-11-19] MEDS ORDERED: GABA-490 PO (15:16)
[2020-11-19] MEDS ORDERED: METF-399 PO (15:16)
[2020-11-19] MEDS ORDERED: INSU100I14 SC (15:16)
[2020-11-19] MEDS ORDERED: EMPA1TAB PO (15:16)
[2020-11-19] MEDS: inSUlin ASPART (NovoLOG) 1 UNIT/0.01 ML (CHARGE PER UNIT) SC SCH (21:52)
[2020-11-20 03:34] LABS: BASOPHILS % (AUTO) 0 % (0-10); EOSINOPHILS # (AUTO) 0.3 10^3/uL (0.0-0.3); EOSINOPHILS % (AUTO) 3 % (0-10); HEMATOCRIT 27 % (40-54); HEMOGLOBIN 9.2 g/dL (13.3-17.7); LYMPHOCYTES # (AUTO) 0.9 10^3/uL (1.0-4.0); LYMPHOCYTES % (AUTO) 10 % (12-44); MEAN CORPUSCULAR HEMOGLOBIN 32 pg (25-34); MEAN CORPUSCULAR HGB CONC 34 g/dL (32-36); MEAN CORPUSCULAR VOLUME 93 fL (80-99); MEAN PLATELET VOLUME 9.8 fL (9.0-12.2); MONOCYTES # (AUTO) 0.5 10^3/uL (0.0-1.0); MONOCYTES % (AUTO) 6 % (0-12); NEUTROPHILS # (AUTO) 7.5 10^3/uL (1.8-7.8); NEUTROPHILS % (AUTO) 80 % (42-75); PLATELET COUNT 220 10^3/uL (130-400); WHITE BLOOD COUNT 9.3 10^3/uL (4.3-11.0)
[2020-11-20 03:48] LABS: CHLORIDE 104 MMOL/L (98-107); POTASSIUM 3.3 MMOL/L (3.6-5.0); SODIUM 140 MMOL/L (135-145)
[2020-11-20 03:49] LABS: CALCIUM 8.4 MG/DL (8.5-10.1)
[2020-11-20 03:50] LABS: GLUCOSE 162 MG/DL (70-105); TRIGLYCERIDES 139 MG/DL (<150)
[2020-11-20 03:51] LABS: CARBON DIOXIDE 21 MMOL/L (21-32)
[2020-11-20 03:53] LABS: PHOSPHORUS 2.4 MG/DL (2.3-4.7)
[2020-11-20 03:54] LABS: CREATININE SERUM 0.75 MG/DL (0.60-1.30); GFR ESTIMATED > 60
[2020-11-20 03:55] LABS: BUN/CREATININE RATIO 7
[2020-11-20 03:56] LABS: MAGNESIUM 1.4 MG/DL (1.6-2.4)
--- NOTE | 2020-11-20 04:13 | Pulmonary Progress Note ---
PEDRO YANG MED STUDENT 11/20/20 0413: Subjective Date Seen by a Provider: November 20, 2020 Time Seen by a Provider: 04:08 Subjective/Events-last exam Patient reports pain over his coccyx. He denies other complaints. Reports being awake most of the night. Has no further questions at this time. Review of Systems General: No Chills, No Night Sweats HEENT: No Head Aches, No Visual Changes Pulmonary: No Dyspnea, No Cough Cardiovascular: No: Chest Pain, Palpitations Gastrointestinal: No: Nausea, Vomiting, Abdominal Pain Genitourinary: No Dysuria, No Frequency Musculoskeletal: No: neck pain, back pain Neurological: No: Weakness, Numbness Sepsis Event Evaluation Height, Weight, BMI Height: '" Weight: lbs. oz. kg; 21.96 BMI Method:Estimated Exam Exam Vital Signs Date Time Temp Pulse Resp B/P (MAP) Pulse Ox O2 Delivery O2 Flow Rate FiO2 11/20/20 03:00 70 33 123/75 (91) 94 Room Air 11/20/20 02:30 85 116/66 (83) 95 Room Air 11/20/20 02:20 Room Air 11/20/20 02:00 73 18 124/74 (91) 97 Vapotherm 20.00 30.00 11/20/20 01:00 70 12 111/69 (83) 97 Vapotherm 20.00 30.00 11/20/20 01:00 70 11/20/20 00:00 87 32 119/55 (76) 96 Vapotherm 20.00 30.00 11/20/20 00:00 Vapotherm 30 11/19/20 23:00 78 21 131/74 (93) 97 Vapotherm 20.00 30.00 11/19/20 22:00 79 19 131/76 (94) 96 Vapotherm 20.00 30.00 11/19/20 21:00 73 10 126/79 (95) Vapotherm 20.00 30.00 11/19/20 20:00 87 13 127/77 (94) 98 Vapotherm 20.00 30.00 11/19/20 20:00 Vapotherm 40 11/19/20 19:21 36.5 11/19/20 19:00 86 16 134/79 (97) 97 Vapotherm 20.00 30.00 11/19/20 19:00 86 11/19/20 18:00 81 13 133/78 (96) 97 Vapotherm 40.00 40.00 11/19/20 17:00 78 12 120/72 (88) 97 Vapotherm 40.00 40.00 11/19/20 16:00 74 9 116/71 (86) 96 Vapotherm 40.00 40.00 11/19/20 15:52 Vapotherm 40 11/19/20 15:47 36.2 11/19/20 15:05 98 Vapotherm 30.00 40 11/19/20 15:00 78 10 134/81 (98) 98 Vapotherm 40.00 40.00 11/19/20 14:00 99 14 151/92 (111) 64 Vapotherm 40.00 40.00 11/19/20 13:00 90 14 135/81 (99) 96 Vapotherm 40.00 40.00 11/19/20 12:48 97 11/19/20 12:24 Vapotherm 40.00 40.00 11/19/20 12:00 92 16 109/73 (85) 96 NIV Bilevel 40.00 11/19/20 11:20 36.1 11/19/20 11:18 NIV Bilevel 40 11/19/20 11:00 82 11 151/80 (103) 94 NIV Bilevel 40.00 11/19/20 10:45 96 12 94 40.00 11/19/20 10:00 120 26 151/96 (114) 96 NIV Bilevel 40.00 11/19/20 09:00 118 14 148/75 (99) 95 NIV Bilevel 40.00 11/19/20 08:15 118 14 94 40.00 11/19/20 08:00 37.1 11/19/20 08:00 131 18 156/76 (102) 92 NIV Bilevel 40.00 11/19/20 07:45 NIV Bilevel 40.00 11/19/20 07:32 Nasal Cannula 4.00 11/19/20 07:00 Nasal Cannula 4.00 11/19/20 07:00 124 17 138/76 (96) 87 Nasal Cannula 4.00 11/19/20 06:56 126 11/19/20 06:55 Nasal Cannula 2.00 11/19/20 06:53 91 Nasal Cannula 2.00 11/19/20 06:26 125 11/19/20 06:21 103 18 90 30 11/19/20 06:00 103 18 125/54 (77) 94 Mechanical Ventilator 25.00 11/19/20 05:00 52 18 98/57 (71) 94 Mechanical Ventilator 25.00 I & O 11/20/20 07:00 Intake Total 3070 ml Output Total 6000 ml Balance -2930 ml Height & Weight Height: '" Weight: lbs. oz. kg; 21.96 BMI Method:Estimated General Appearance: No Apparent Distress, Chronically ill HEENT: PERRL/EOMI, Moist Mucous Membranes; No Scleral Icterus (L), No Scleral Icterus (R); Other (Very Poor dentition/tongue with possible thrush vs poor hygiene) Neck: Normal Inspection, Non Tender, Supple Respiratory: Lungs Clear, Normal Breath Sounds, No Respiratory Distress Cardiovascular: Regular Rate, Rhythm, No Edema, Normal Peripheral Pulses Capillary Refill: Less Than 3 Seconds Peripheral Pulses: 1+ Dorsalis Pedis (R); 0 Left Dors-Pedis (L) (Left lower extrem amputated); 2+ Radial Pulses (R), 2+ Radial Pulses (L) Gastrointestinal: normal bowel sounds, non tender, soft; No distended, No guarding, No rebound, No tenderness Extremity: Normal Capillary Refill, Pedal Edema (R foot trace), Other (Left foot amputation/open wound anterior posadas open to air) Neurologic/Psychiatric: Alert, Oriented x3, Normal Mood/Affect Skin: Normal Color, Warm/Dry Lymphatic: No Adenopathy Results Lab Laboratory Tests 11/19/20 03:22 11/20/20 03:27 Assessment/Plan Assessment/Plan Acute respiratory failure secondary to OD -Patient extubated yesterday am -currently sat's mid 90's on RA -Order IS Q1hr WA -Encouraged cough and deep breathing PNA LLL with sepsis -prelim blood cx negative -MRSA nasal negative -sputum staph aureus -left leg wound positive for staph aureus and group B strep -Zosyn and vancomycin Septic shock- Improving -LR @ 100ml/hr -Echo showed EF 55-65% -WBC 9.3 today -off all pressors -afebrile Bradycardia - secondary to Methadone. -Resolved -Monitor -Poison control following Leukocytosis- Improving -WBC down from 10.8 to 9.3 today -continue antibiotic coverage -continue to monitor Hypokalemia -Replete today -continue to monitor Hypomagnesemia/Hypophosphatemia -Replete today -continue to monitor GI prophylaxis -protonix DVT prophylaxis lovenox Amputation with stump infection -continue antibiotics Methamphetamine -Education Methadone OD MANOJ SPAULDING DO 11/20/20 0505: Assessment/Plan Assessment/Plan Acute respiratory failure secondary to OD -Patient extubated yesterday am -currently sat's mid 90's on RA -Order IS Q1hr WA -Encouraged cough and deep breathing PNA LLL with sepsis -prelim blood cx negative -MRSA nasal negative -sputum staph aureus -left leg wound positive for staph aureus and group B strep -Zosyn and vancomycin Septic shock- Improving -LR @ 100ml/hr -Echo showed EF 55-65% -WBC 9.3 today -off all pressors -afebrile Bradycardia - secondary to Methadone. -Resolved -Monitor -Poison control following Leukocytosis- Improving -WBC down from 10.8 to 9.3 today -continue antibiotic coverage -continue to monitor Hypokalemia -Replete today -continue to monitor Hypomagnesemia/Hypophosphatemia -Replete today -continue to monitor Thrush -Start Nyastatin S&S GI prophylaxis -protonix DVT prophylaxis lovenox Amputation with stump infection -continue antibiotics Methamphetamine -Education Methadone OD Transfer to [facility] and I will sign off please call with any questions or concerns. Supervisory-Addendum Brief Verification & Attestation Participated in pt care: history, MDM, physical Personally performed: exam, history, MDM, supervision of care Care discussed with: Medical Student Procedures: n/a Results interpretation: Verified all documentation Verification and Attestation of Medical Student E/M Service A medical student performed and documented this service in my presence. I reviewed and verified all information documented by the medical student and made modifications to such information, when appropriate. I personally performed the physical exam and medical decision making. Manoj Spaulding, November 21, 2020,12:34 PEDRO YANG MED STUDENT November 20, 2020 04:13 MANOJ SPAULDING DO November 20, 2020 05:05
[2020-11-20] MEDS: POTASSIUM CL 10MEQ/50ML IVPB 50 ML IV SCH ×5 (05:36→07:52)
[2020-11-20] MEDS: PIPERACILLIN/TAZO 4.5 GM/NS 100 ML IV SCH ×6 (05:37→22:36)
[2020-11-20] MEDS: inSUlin ASPART (NovoLOG) 1 UNIT/0.01 ML (CHARGE PER UNIT) SC SCH ×4 (05:37→20:45)
[2020-11-20] MEDS: NYSTATIN ORAL SUSP 5 ML UDC PO SCH ×3 (06:27→18:02)
--- NOTE | 2020-11-20 07:42 | Diagnostic Imaging Report ---
CHEST 1 VIEW, AP/PA ONLY Indication: Dyspnea Comparison: 11/19/2020 Findings: ET and enteric tubes have been removed. Stable right IJ central venous catheter. Improving but persistent bibasilar hazy opacities. No pleural effusion or pneumothorax. Stable cardiac silhouette. Impression: 1. Extubation without adverse development. Dictated by: Dictated on workstation # [id number]
[2020-11-20] MEDS ORDERED: GADOBUTROL 7.5 MMOL/7.5 ML (GADAVIST) VIAL IV ONE (09:45)
[2020-11-20] MEDS: meTOprolol TARTRATE 25 MG (LOPRESSOR) TABLET PO SCH ×2 (10:17→20:51)
[2020-11-20] MEDS: PANTOPRAZOLE 40 MG (PROTONIX) VIAL IV SCH (10:18)
[2020-11-20] MEDS: ENOXAPARIN 40 MG/0.4 ML (LOVENOX) SYR SC SCH (10:18)
[2020-11-20] MEDS: VANCOMYCIN INJECTION 1,000 MG in NS (IVPB) 250 ML IV SCH ×2 (10:27→22:36)
--- NOTE | 2020-11-20 10:33 | Diagnostic Imaging Report ---
PROCEDURE: MRI left lower extremity with and without contrast. TECHNIQUE: Multiplanar, multisequence pre and post contrast-enhanced MRI of the left lower extremity was accomplished. INDICATION: Open ulcer at the end of the left leg anteriorly. Osteomyelitis. Left foot amputation. COMPARISON: Radiographs from 11/18/2020. FINDINGS: There are postsurgical changes from prior amputation at the distal left tibia and fibula, with significant surrounding heterotopic ossification. There is irregular signal in the distal left tibia diaphysis which appears to be an old bone infarct. There is enhancing bone marrow edema at the medial aspect of the distal left tibial metaphysis. There is associated T1-weighted marrow replacement, with cortical erosion. This is underlying the soft tissue ulceration at the anteromedial lower leg which extends down to the bone and has associated necrotic tissue with surrounding soft tissue enhancement. No drainable fluid collection is seen. There is also soft tissue ulceration posteriorly with surrounding edema. This may extend down to the heterotopic bone, but does not appear to affect the distal ulna and tibia. There is generalized muscular atrophy, with cellulitis of the distal left lower leg. IMPRESSION: 1. Osteomyelitis of the distal left tibia with overlying ulceration and cellulitis anteriorly. No drainable fluid collection is seen. 2. Posterior ulceration with possible infectious involvement of the heterotopic bone. Dictated by: Dictated on workstation # [id number]
--- NOTE | 2020-11-20 10:52 | Progress Note - Hospitalist ---
Subjective HPI/CC On Admission Date Seen by Provider: November 20, 2020 Time Seen by Provider: 08:55 Pt is a 65yoCM with a PMH of IDDMII, HLD, and chronic pain who presented to the ER due to decreased responsiveness. He is currently intubated and sedated and unable to provide any history. All history obtained from the records. I'm unsure when this all started but daughter apparently was with him and kept trying to wake him for a couple of hours.. Information from the record indicates his daughter was aware and is concerned about his medications as he hides them. He had a GCS of 8 on arrival and was intubated in the ER. He is currently sedated and appears comfortable. Subjective/Events-last exam He is feeling better today. He denies any shortness of breath. He is not having any fevers. He is having pain in his left lower extremity stump. Objective Exam Vital Signs Vital Signs Date Time Temp Pulse Resp B/P (MAP) Pulse Ox O2 Delivery O2 Flow Rate FiO2 11/20/20 08:00 101 29 146/83 (104) Room Air 11/20/20 06:00 96 11/20/20 04:00 30 11/20/20 04:00 36.1 11/20/20 02:00 20.00 30.00 Capillary Refill : Less Than 3 Seconds General Appearance: No Apparent Distress, Chronically ill, Thin Respiratory: Lungs Clear, Normal Breath Sounds, No Respiratory Distress Cardiovascular: Regular Rate, Rhythm, No Murmur Gastrointestinal: Normal Bowel Sounds, Non Tender, Soft Extremity: Other (Left foot amputation with stump ulcer, mild erythema and swelling with serous discharge) Neurologic/Psychiatric: Alert, Oriented x3, No Motor/Sensory Deficits, Normal Mood/Affect Skin: Other (Left lower extremity stump ulcer) Results/Procedures Lab Laboratory Tests 11/20/20 03:27 Patient resulted labs reviewed. Imaging: Reviewed Imaging Report Assessment/Plan Assessment and Plan Assess & Plan/Chief Complaint Osteomyelitis s/p left foot amputation Pneumonia Sputum culture with Staph aureus, await final results Wound care consulted, appreciate assistance Wound culture with Staph aureus and group B Strep, await final results MRI revealed osteomyelitis Surgery consulted, appreciate assistance Continue Vanc and Zosyn, awaiting final culture results T2DM with diabetic foot wound Sliding scale insulin Polysubstance abuse volunteer services manager consulted, appreciate assistance DVT ppx: Lovenox Endotracheally intubated, resolved Acute respiratory failure with hypoxia, resolved Drug overdose, resolved Septic shock, resolved Diagnosis/Problems Diagnosis/Problems (1) Acute osteomyelitis of left tibia Status: Acute (2) Septic shock Status: Resolved Resolution Date/Time: 11/20/20 @ 10:53 (3) Left lower lobe pneumonia Status: Acute Qualifiers: Pneumonia type: due to unspecified organism Qualified Codes: J18.9 - Pneumonia, unspecified organism (4) Amputation stump infection Status: Acute (5) Drug overdose, multiple drugs Status: Acute Qualifiers: Encounter type: initial encounter Injury intent: undetermined intent Qu alified Codes: T50.914A - Poisoning by multiple unspecified drugs, medicaments and biological substances, undetermined, initial encounter (6) T2DM (type 2 diabetes mellitus) Status: Acute Qualifiers: Diabetes mellitus custodial insulin use: with filler leaf cutter long use Diabetes mellitus complication status: with skin complications Diabetes mellitus complication detail: with foot ulcer Qualified Codes: E11.621 - Type 2 diabetes mellitus with foot ulcer; L97.509 - Non-pressure chronic ulcer of other part of unspecified foot with unspecified severity; Z79.4 - assisted (current) use of insulin FLORY BARBOSA MD November 20, 2020 10:52
[2020-11-20] MEDS ORDERED: NS IV 500 ML 500 ML ONE (11:16)
--- NOTE | 2020-11-20 15:00 | CONSULTATION REPORT ---
DATE OF SERVICE: 11/20/2020 ADMITTING PHYSICIAN: Dr. Barba. ATTENDING PRIMARY CARE PHYSICIAN: Dr. Larry Mejia. HISTORY OF PRESENT ILLNESS: The patient is a 65-year-old male with history of medical comorbidities and noncompliance. He was found unresponsive at home and his daughter called EMS. The patient does have a prescription for methadone and had overdose on this medication. Upon presentation in the Emergency Department, he was obtunded and only marginally protecting his airway with oxygen saturations in the 90s and the patient was intubated and a central line placed as well. Further workup was consistent with pneumonia and he was treated with antibiotics. He did slowly improve over time and was able to be extubated and transferred to the general medical floor. 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 There is an open ulceration and wound. An MRI was performed today, which did confirm osteomyelitis at the end of the tibia. This was explained to the patient and the proper treatment being a formal [id number] amputation. At this time, he is unsure and would like to think about future plans. PAST MEDICAL HISTORY: Non-insulin dependent diabetes, neuropathy, drug abuse. PAST SURGICAL HISTORY: Left foot Syme's amputation, left inguinal hernia repair. ALLERGIES: No known drug allergies. MEDICATIONS: Empagliflozin/linagliptin 25/5 mg daily, gabapentin 400 mg daily, NovoLog insulin sliding scale, glargine insulin 12 units daily, metformin 1000 mg b.i.d. SOCIAL HISTORY: Positive for methamphetamine, positive for tobacco smoke for 50 pack years. Negative alcohol. Methadone. FAMILY HISTORY: Noncontributory. VITAL SIGNS: Temperature 36.4, blood pressure 147/81, pulse 71, respirations 18, pulse ox 100% on room air. REVIEW OF SYSTEMS: This is a thin-appearing male, currently in no acute distress. He is not experiencing any shortness of breath or difficulty breathing. No chest pain, palpitations, diaphoresis. No nausea or vomiting, no diarrhea or constipation, no red blood per rectum, no dark tarry stools. No known fever, chills, no recent inadvertent weight loss. All other review of systems negative. PHYSICAL EXAMINATION: CHEST: Scattered rales and rhonchi bilaterally. HEART: Regular, no murmurs. EXTREMITIES: No lower extremity edema, negative Homans sign. He has a Syme's amputation of the left foot with open wound at the end, which was also edematous and draining purulent material. SKIN: Warm, dry. LABORATORY DATA: WBC 9.3, hemoglobin 9.2, hematocrit 27, platelets 220, BUN 5, creatinine 0.75, glucose 183. Toxicology on admission came back positive for methadone, amphetamine and methamphetamine. ASSESSMENT AND PLAN: A 65-year-old male with osteomyelitis and an open wound at the location of the left Syme's amputation with confirmed osteomyelitis at the end of the tibia. Recommendation is to proceed with a formal gwjya-yee-zuiq amputation; however, the patient is unsure if he wants to proceed with any surgical procedure, even though the rate of clearance of infection is very low and the potential for infection spread and sepsis is high. Again, we will await his decision. For now, continue with IV antibiotics. Job ID: [id number] DocumentID: [id number] Dictated Date: 11/20/2020 14:24:11 Lumber Carrier Operator Date: 11/20/2020 14:58:57 Dictated By: BLADIMIR DAVIDSON MD
--- NOTE | 2020-11-20 16:53 | Cardiology Progress Note ---
Subjective Date Seen by Provider: November 20, 2020 Time Seen by Provider: 16:52 Subjective/Events-last exam Patient was seen at bedside, laying down comfortably, denied any chest pain Review of Systems General: No Chills, No Night Sweats, No Fatigue, No Malaise, No Appetite, No Other HEENT: No Head Aches, No Visual Changes, No Eye Pain, No Ear Pain, No Dysphasia, No Sinus Congestion, No Post Nasal Drip, No Sore Throat, No Other Pulmonary: No Dyspnea, No Cough, No Pleuritic Chest Pain, No Other Cardiovascular: No: Chest Pain, Palpitations, Orthopnea, Paroxysmal Noc. Dyspnea, Edema, Lt Headedness, Other Objective-Cardiology Exam Last Set of Vital Signs Vital Signs 11/20/20 11/20/20 02:00 16:00 Temp 36.3 Pulse 72 Resp 18 B/P (MAP) 109/64 (79) Pulse Ox 97 O2 Delivery Room Air O2 Flow Rate 20.00 30.00 Capillary Refill : Less Than 3 Seconds I&O Intake and Output 11/20/20 00:00 Intake Total 3140 ml Output Total 6075 ml Balance -2935 ml Intake Oral 400 ml IV Total 2520 ml Tube Feeding 60 ml Other 160 ml Output Urine Total 6075 ml General: Alert, Oriented X3, Cooperative, Mild Distress HEENT: Atraumatic, PERRLA Neck: Supple, No JVD Lungs: Normal Air Movement, Other (Bilateral rhonchi) Heart: Regular Rate, Normal S1, Normal S2 Abdomen: Normal Bowel Sounds Extremities: No Clubbing, Other (Mild edema, BKA) Skin: No Rashes Neuro: Normal Speech Psych/Mental Status: Mood NL Results Lab Laboratory Tests 11/20/20 03:27 A/P-Cardiology Admission Diagnosis Acute respiratory failure Pneumonia Sepsis Sinus bradycardia Assessment/Plan Status post acute respiratory failure secondary to drug overdose, better today, has been moved to the fourth floor and recovering slowly. Pneumonia, receiving antibiotic, borderline hypotension, continue to monitor blood pressure, use IV fluid for sepsis Sinus bradycardia, currently borderline sinus tachycardia after extubation. Continue to monitor Sepsis with septic shock, managed by primary care physician Echocardiogram was done on 11/17/2020 showing normal LV size, EF 55 to 65% History of left BKA. Methadone and methamphetamine overdose. MJ TYLER MD November 20, 2020 16:53
[2020-11-21] MEDS: NYSTATIN ORAL SUSP 5 ML UDC PO SCH ×4 (00:08→17:46)
[2020-11-21 05:35] LABS: BASOPHILS % (AUTO) 1 % (0-10); EOSINOPHILS # (AUTO) 0.4 10^3/uL (0.0-0.3); EOSINOPHILS % (AUTO) 6 % (0-10); HEMATOCRIT 30 % (40-54); HEMOGLOBIN 10.2 g/dL (13.3-17.7); LYMPHOCYTES # (AUTO) 0.8 10^3/uL (1.0-4.0); LYMPHOCYTES % (AUTO) 11 % (12-44); MEAN CORPUSCULAR HEMOGLOBIN 32 pg (25-34); MEAN CORPUSCULAR HGB CONC 34 g/dL (32-36); MEAN CORPUSCULAR VOLUME 92 fL (80-99); MEAN PLATELET VOLUME 9.6 fL (9.0-12.2); MONOCYTES # (AUTO) 0.6 10^3/uL (0.0-1.0); MONOCYTES % (AUTO) 7 % (0-12); NEUTROPHILS # (AUTO) 5.8 10^3/uL (1.8-7.8); NEUTROPHILS % (AUTO) 75 % (42-75); PLATELET COUNT 293 10^3/uL (130-400); WHITE BLOOD COUNT 7.7 10^3/uL (4.3-11.0)
[2020-11-21 05:46] LABS: CHLORIDE 106 MMOL/L (98-107); POTASSIUM 3.6 MMOL/L (3.6-5.0); SODIUM 142 MMOL/L (135-145)
[2020-11-21 05:47] LABS: CALCIUM 8.6 MG/DL (8.5-10.1)
[2020-11-21 05:48] LABS: GLUCOSE 165 MG/DL (70-105)
[2020-11-21 05:49] LABS: CARBON DIOXIDE 16 MMOL/L (21-32)
[2020-11-21 05:52] LABS: BUN/CREATININE RATIO 11; CREATININE SERUM 0.83 MG/DL (0.60-1.30); GFR ESTIMATED > 60
[2020-11-21 05:54] LABS: MAGNESIUM 1.6 MG/DL (1.6-2.4)
[2020-11-21] MEDS: inSUlin ASPART (NovoLOG) 1 UNIT/0.01 ML (CHARGE PER UNIT) SC SCH ×4 (05:55→20:35)
[2020-11-21] MEDS: PIPERACILLIN/TAZO 4.5 GM/NS 100 ML IV SCH ×4 (06:10→14:11)
--- NOTE | 2020-11-21 08:37 | Cardiology Progress Note ---
Subjective Date Seen by Provider: November 21, 2020 Time Seen by Provider: 08:37 Subjective/Events-last exam Patient is laying down in bed, feeling better. No new complaint. Review of Systems General: No Chills, No Night Sweats; Fatigue; No Malaise, No Appetite, No Other HEENT: No Head Aches, No Visual Changes, No Eye Pain, No Ear Pain, No Dysphasia, No Sinus Congestion, No Post Nasal Drip, No Sore Throat, No Other Pulmonary: No Dyspnea, No Cough, No Pleuritic Chest Pain, No Other Cardiovascular: No: Chest Pain, Palpitations, Orthopnea, Paroxysmal Noc. Dyspnea, Edema, Lt Headedness, Other Objective-Cardiology Exam Last Set of Vital Signs Vital Signs 11/20/20 11/21/20 02:00 07:20 Temp 36.8 Pulse 76 Resp 20 B/P (MAP) 101/62 (75) Pulse Ox 97 O2 Delivery Room Air O2 Flow Rate 20.00 30.00 Capillary Refill : Less Than 3 Seconds I&O Intake and Output 11/21/20 00:00 Intake Total 3570 ml Output Total 5200 ml Balance -1630 ml Intake Oral 850 ml IV Total 2720 ml Output Urine Total 5200 ml # Bowel Movements 1 General: Alert, Oriented X3, Cooperative, Mild Distress HEENT: Atraumatic, PERRLA Neck: Supple, No JVD Lungs: Normal Air Movement, Other (Bilateral rhonchi) Heart: Regular Rate, Normal S1, Normal S2 Abdomen: Normal Bowel Sounds Extremities: No Clubbing, Other (Mild edema, BKA) Skin: No Rashes Neuro: Normal Speech Psych/Mental Status: Mood NL Results Lab Laboratory Tests 11/21/20 05:20 A/P-Cardiology Admission Diagnosis Acute respiratory failure Pneumonia Sepsis Sinus bradycardia Assessment/Plan Status post acute respiratory failure secondary to drug overdose, better today, has been moved to the fourth floor and recovering slowly. Pneumonia, receiving antibiotic, borderline hypotension, continue to monitor blood pressure, use IV fluid for sepsis Sinus bradycardia, Heart rate is back to normal. Continue to monitor Sepsis with septic shock, managed by primary care physician Echocardiogram was done on 11/17/2020 showing normal LV size, EF 55 to 65% History of left BKA. Methadone and methamphetamine overdose. MJ TYLER MD November 21, 2020 08:37
[2020-11-21] MEDS: PANTOPRAZOLE 40 MG (PROTONIX) VIAL IV SCH (09:13)
[2020-11-21] MEDS: meTOprolol TARTRATE 25 MG (LOPRESSOR) TABLET PO SCH ×2 (09:13→20:30)
[2020-11-21] MEDS: ENOXAPARIN 40 MG/0.4 ML (LOVENOX) SYR SC SCH (09:14)
--- NOTE | 2020-11-21 10:48 | Progress Note - Hospitalist ---
Subjective HPI/CC On Admission Date Seen by Provider: November 21, 2020 Time Seen by Provider: 09:45 Pt is a 65yoCM with a PMH of IDDMII, HLD, and chronic pain who presented to the ER due to decreased responsiveness. He is currently intubated and sedated and unable to provide any history. All history obtained from the records. I'm unsure when this all started but daughter apparently was with him and kept trying to wake him for a couple of hours.. Information from the record indicates his daughter was aware and is concerned about his medications as he hides them. He had a GCS of 8 on arrival and was intubated in the ER. He is currently sedated and appears comfortable. Subjective/Events-last exam He reports burning in his left leg. He denies any fevers or chills. He has no other complaints or concerns. He spoke with his daughter and he would like to proceed with surgery. Objective Exam Vital Signs Vital Signs Date Time Temp Pulse Resp B/P (MAP) Pulse Ox O2 Delivery O2 Flow Rate FiO2 11/21/20 07:20 36.8 76 20 101/62 (75) 97 Room Air 11/20/20 04:00 30 11/20/20 02:00 20.00 30.00 Capillary Refill : Less Than 3 Seconds General Appearance: No Apparent Distress, Chronically ill, Thin Respiratory: Lungs Clear, Normal Breath Sounds, No Respiratory Distress Cardiovascular: Regular Rate, Rhythm, No Edema, No Murmur Gastrointestinal: Normal Bowel Sounds, Non Tender, Soft Extremity: No Pedal Edema, Inflammation, Other (Tenderness, ulceration) Neurologic/Psychiatric: Alert, Oriented x3 Skin: Other (Left anterior posadas ulcer with bandage in place) Results/Procedures Lab Laboratory Tests 11/21/20 05:20 Patient resulted labs reviewed. Imaging: Reviewed Imaging Report Assessment/Plan Assessment and Plan Assess & Plan/Chief Complaint Osteomyelitis of left tibia s/p left foot amputation Pneumonia Sputum culture with MSSA Wound care consulted, appreciate assistance Wound culture with Staph aureus and group B Strep, await final results MRI revealed osteomyelitis Surgery consulted, appreciate assistance Continue Vanc and Zosyn, awaiting final culture results Patient agrees to left below the knee amputation T2DM with diabetic foot wound Sliding scale insulin Polysubstance abuse media services coordinator consulted, appreciate assistance DVT ppx: Lovenox Endotracheally intubated, resolved Acute respiratory failure with hypoxia, resolved Drug overdose, resolved Septic shock, resolved Diagnosis/Problems Diagnosis/Problems (1) Acute osteomyelitis of left tibia Status: Acute (2) Septic shock Status: Resolved Resolution Date/Time: 11/20/20 @ 10:53 (3) Left lower lobe pneumonia Status: Acute Qualifiers: Pneumonia type: due to unspecified organism Qualified Codes: J18.9 - Pneumonia, unspecified organism (4) Amputation stump infection Status: Acute (5) Drug overdose, multiple drugs Status: Acute Qualifiers: Encounter type: initial encounter Injury intent: undetermined intent Qualified Codes: T50.914A - Poisoning by multiple unspecified drugs, medicaments and biological substances, undetermined, initial encounter (6) T2DM (type 2 diabetes mellitus) Status: Acute Qualifiers: Diabetes mellitus alf insulin use: with keno terminal operator use Diabetes mellitus complication status: with skin complications Diabetes mellitus complication detail: with foot ulcer Qualified Codes: E11.621 - Type 2 diabetes mellitus with foot ulcer; L97.509 - Non-pressure chronic ulcer of other part of unspecified foot with unspecified severity; Z79.4 - exterminator helper (current) use of insulin FLORY BARBOSA MD November 21, 2020 10:48
[2020-11-21] MEDS: VANCOMYCIN INJECTION 1,000 MG in NS (IVPB) 250 ML IV SCH (11:08)
[2020-11-21] MEDS: HYDROcodone/APAP 7.5 MG/325 MG (LORTAB, LORCET PLUS) TABLET PO PRN ×2 (15:12→20:28)
--- NOTE | 2020-11-21 15:17 | Progress Note ---
Subjective Date Seen by a Provider: November 21, 2020 Time Seen by a Provider: 14:50 Subjective/Events-last exam Patient seen with Dr. Carroll. Patient lying in bed resting. Reports that his left leg stump does hurt. He denies any nausea, vomiting, fever, chills. He reports that he would like to proceed with a left BKA. Objective Exam Vital Signs Date Time Temp Pulse Resp B/P (MAP) Pulse Ox O2 Delivery O2 Flow Rate FiO2 11/21/20 13:00 56 11/21/20 11:13 36.8 54 20 129/76 (93) 97 Room Air 11/21/20 08:00 97 Room Air 11/21/20 07:20 36.8 76 20 101/62 (75) 97 Room Air 11/21/20 07:00 67 11/21/20 03:59 36.9 74 18 116/72 (87) 97 Room Air 11/21/20 01:00 64 11/21/20 00:00 36.8 75 17 124/73 (90) 97 Room Air 11/20/20 20:00 Room Air 11/20/20 19:54 36.5 84 16 114/68 (83) 96 Room Air 11/20/20 19:00 86 11/20/20 16:00 36.3 72 18 109/64 (79) 97 Room Air I & O 11/21/20 07:00 Intake Total 3210 ml Output Total 3875 ml Balance -665 ml Capillary Refill : Less Than 3 Seconds General Appearance: No Apparent Distress, WD/WN Neck: Normal Inspection, Supple Respiratory: No Accessory Muscle Use, No Respiratory Distress Cardiovascular: Regular Rate, Rhythm, No Edema Gastrointestinal: normal bowel sounds, non tender, soft Extremity: Normal Range of Motion, Other (Left leg syme's amputation with an area of ulceration toward the distal anterior lateral left leg stump with purulence of the wound bed as well some necrotic tissue.) Neurologic/Psychiatric: Alert, Oriented x3 Skin: Normal Color, Warm/Dry Results Lab Laboratory Tests 11/20/20 16:14: Glucometer 203H 11/20/20 20:43: Glucometer 160H 11/21/20 05:20: White Blood Count 7.7, Red Blood Count 3.23L, Hemoglobin 10.2L, Hematocrit 30L, Mean Corpuscular Volume 92, Mean Corpuscular Hemoglobin 32, Mean Corpuscular Hemoglobin Concent 34, Red Cell Distribution Width 12.6, Platelet Count 293, Mean Platelet Volume 9.6, Immature Granulocyte % (Auto) 0, Neutrophils (%) (Auto) 75, Lymphocytes (%) (Auto) 11L, Monocytes (%) (Auto) 7, Eosinophils (%) (Auto) 6, Basophils (%) (Auto) 1, Neutrophils # (Auto) 5.8, Lymphocytes # (Auto) 0.8L, Monocytes # (Auto) 0.6, Eosinophils # (Auto) 0.4H, Basophils # (Auto) 0.0, Immature Granulocyte # (Auto) 0.0, Sodium Level 142, Potassium Level 3.6, Chlor melani Level 106, Carbon Dioxide Level 16L, Anion Gap 20H, Blood Urea Nitrogen 9, Creatinine 0.83, Estimat Glomerular Filtration Rate > 60, BUN/Creatinine Ratio 11, Glucose Level 165H, Calcium Level 8.6, Phosphorus Level 2.0L, Magnesium Level 1.6, Triglycerides Level 140 11/21/20 05:46: Glucometer 164H 11/21/20 11:13: Glucometer 193H Microbiology 11/20/20 Catheter Tip Culture - Preliminary, Resulted No growth 11/18/20 Gram Stain - Final, Complete 11/18/20 Wound Culture - Final, Complete Staphylococcus aureus Strep agalactiae Group B See Comments 11/16/20 MRSA Screen - Final, Complete MRSA not isolated Assessment/Plan Assessment/Plan Assess & Plan/Chief Complaint A 65-year-old male with osteomyelitis and an open wound at the location of the left Syme's amputation with confirmed osteomyelitis at the end of the tibia. VSS Continue abx will start oral and IV pain meds as needed. Will proceed with scheduling him for a left below the knee amputation [employer] November 21, 2020 15:16
[2020-11-21] MEDS: ceFAZolin INJECTION 1,000 MG in WATER (STERILE) FOR INJECTION 10 ML IV SCH (22:08)
[2020-11-22] MEDS: NYSTATIN ORAL SUSP 5 ML UDC PO SCH ×4 (00:13→18:12)
[2020-11-22] MEDS: HYDROcodone/APAP 7.5 MG/325 MG (LORTAB, LORCET PLUS) TABLET PO PRN ×6 (00:18→21:05)
[2020-11-22 04:59] LABS: BASOPHILS # (AUTO) 0.1 10^3/uL (0.0-0.1); BASOPHILS % (AUTO) 1 % (0-10); EOSINOPHILS # (AUTO) 0.6 10^3/uL (0.0-0.3); EOSINOPHILS % (AUTO) 9 % (0-10); HEMATOCRIT 28 % (40-54); HEMOGLOBIN 9.5 g/dL (13.3-17.7); LYMPHOCYTES # (AUTO) 1.4 10^3/uL (1.0-4.0); LYMPHOCYTES % (AUTO) 20 % (12-44); MEAN CORPUSCULAR HEMOGLOBIN 31 pg (25-34); MEAN CORPUSCULAR HGB CONC 34 g/dL (32-36); MEAN CORPUSCULAR VOLUME 92 fL (80-99); MEAN PLATELET VOLUME 9.4 fL (9.0-12.2); MONOCYTES # (AUTO) 0.7 10^3/uL (0.0-1.0); MONOCYTES % (AUTO) 9 % (0-12); NEUTROPHILS # (AUTO) 4.1 10^3/uL (1.8-7.8); NEUTROPHILS % (AUTO) 60 % (42-75); PLATELET COUNT 299 10^3/uL (130-400); WHITE BLOOD COUNT 6.9 10^3/uL (4.3-11.0)
[2020-11-22 05:06] LABS: CHLORIDE 107 MMOL/L (98-107); POTASSIUM 3.1 MMOL/L (3.6-5.0); SODIUM 141 MMOL/L (135-145)
[2020-11-22 05:08] LABS: CALCIUM 8.2 MG/DL (8.5-10.1); GLUCOSE 191 MG/DL (70-105)
[2020-11-22 05:10] LABS: CARBON DIOXIDE 21 MMOL/L (21-32)
[2020-11-22 05:12] LABS: CREATININE SERUM 0.75 MG/DL (0.60-1.30); GFR ESTIMATED > 60; PHOSPHORUS 1.9 MG/DL (2.3-4.7)
[2020-11-22 05:13] LABS: BUN/CREATININE RATIO 13
[2020-11-22 05:14] LABS: MAGNESIUM 1.6 MG/DL (1.6-2.4)
[2020-11-22] MEDS: ceFAZolin INJECTION 1,000 MG in WATER (STERILE) FOR INJECTION 10 ML IV SCH ×3 (05:20→21:13)
[2020-11-22] MEDS: inSUlin ASPART (NovoLOG) 1 UNIT/0.01 ML (CHARGE PER UNIT) SC SCH ×4 (05:21→21:13)
[2020-11-22] MEDS ORDERED: NS IV 500 ML 500 ML ONE (06:05)
[2020-11-22] MEDS ORDERED: NS IV 500 ML 500 ML IV ONE (06:15)
[2020-11-22] MEDS: POTASSIUM CL 10MEQ/50ML IVPB 50 ML IV SCH ×2 (06:18→07:24)
[2020-11-22] MEDS: PANTOPRAZOLE 40 MG (PROTONIX) TAB PO SCH (08:20)
[2020-11-22] MEDS: meTOprolol TARTRATE 25 MG (LOPRESSOR) TABLET PO SCH ×2 (08:20→19:28)
[2020-11-22] MEDS: ENOXAPARIN 40 MG/0.4 ML (LOVENOX) SYR SC SCH (08:21)
--- NOTE | 2020-11-22 09:28 | Cardiology Progress Note ---
Subjective Date Seen by Provider: November 22, 2020 Time Seen by Provider: 09:27 Subjective/Events-last exam Patient is laying down in bed, his stump is feeling better, overall feeling better Review of Systems General: No Chills, No Night Sweats, No Fatigue, No Malaise, No Appetite, No Other HEENT: No Head Aches, No Visual Changes, No Eye Pain, No Ear Pain, No Dysphasia, No Sinus Congestion, No Post Nasal Drip, No Sore Throat, No Other Pulmonary: No Dyspnea, No Cough, No Pleuritic Chest Pain, No Other Cardiovascular: No: Chest Pain, Palpitations, Orthopnea, Paroxysmal Noc. Dyspnea, Edema, Lt Headedness, Other Objective-Cardiology Exam Last Set of Vital Signs Vital Signs 11/20/20 11/22/20 11/22/20 02:00 08:02 08:18 Temp 36.4 Pulse 64 Resp 18 B/P (MAP) 139/76 (97) Pulse Ox 98 O2 Delivery Room Air O2 Flow Rate 20.00 30.00 Capillary Refill : Less Than 3 Seconds I&O Intake and Output 11/22/20 00:00 Intake Total 2290 ml Output Total 1875 ml Balance 415 ml Intake Oral 1390 ml IV Total 900 ml Output Urine Total 1875 ml General: Alert, Oriented X3, Cooperative, Mild Distress HEENT: Atraumatic, PERRLA Neck: Supple, No JVD Lungs: Normal Air Movement, Other (Bilateral rhonchi) Heart: Regular Rate, Normal S1, Normal S2 Abdomen: Normal Bowel Sounds Extremities: No Clubbing, Other (Mild edema, BKA) Skin: No Rashes Neuro: Normal Speech Psych/Mental Status: Mood NL Results Lab Laboratory Tests 11/22/20 04:50 A/P-Cardiology Admission Diagnosis Acute respiratory failure Pneumonia Sepsis Sinus bradycardia Assessment/Plan Status post acute respiratory failure secondary to drug overdose, better today, has been moved to the fourth floor and recovering slowly. Pneumonia, receiving antibiotic, borderline hypotension, continue to monitor blood pressure, use IV fluid for sepsis Sinus bradycardia, Heart rate is back to normal. Continue to monitor Left foot amputation, osteomyelitis, was evaluated for possible BKA, patient at this time reporting that he is feeling better and requesting not to have the amputation. Echocardiogram was done on 11/17/2020 showing normal LV size, EF 55 to 65% History of left BKA. Methadone and methamphetamine overdose. MJ TYLER MD November 22, 2020 9:28 am
--- NOTE | 2020-11-22 10:15 | Progress Note - Hospitalist ---
Subjective HPI/CC On Admission Date Seen by Provider: November 22, 2020 Time Seen by Provider: 09:00 Pt is a 65yoCM with a PMH of IDDMII, HLD, and chronic pain who presented to the ER due to decreased responsiveness. He is currently intubated and sedated and unable to provide any history. All history obtained from the records. I'm unsure when this all started but daughter apparently was with him and kept trying to wake him for a couple of hours.. Information from the record indicates his daughter was aware and is concerned about his medications as he hides them. He had a GCS of 8 on arrival and was intubated in the ER. He is currently sedated and appears comfortable. Subjective/Events-last exam He is doing about the same. He still has burning in his leg. He denies fevers. He is reluctantly agreeable to proceed with surgery. Objective Exam Vital Signs Vital Signs Date Time Temp Pulse Resp B/P (MAP) Pulse Ox O2 Delivery O2 Flow Rate FiO2 11/22/20 08:18 64 11/22/20 08:02 36.4 18 139/76 (97) 98 Room Air 11/20/20 04:00 30 11/20/20 02:00 20.00 30.00 Capillary Refill : Less Than 3 Seconds General Appearance: No Apparent Distress, Chronically ill, Thin Respiratory: Lungs Clear, Normal Breath Sounds, No Respiratory Distress Cardiovascular: Regular Rate, Rhythm, No Murmur Gastrointestinal: Normal Bowel Sounds, Non Tender, Soft Extremity: Inflammation, Swelling, Other (left ankle/foot amputation with ulcer) Skin: Other (ulcer with bandage in place) Results/Procedures Lab Laboratory Tests 11/22/20 04:50 Patient resulted labs reviewed. Imaging: Reviewed Imaging Report Assessment/Plan Assessment and Plan Assess & Plan/Chief Complaint Osteomyelitis of left tibia due to MSSA and group B Strep History of left foot amputation Pneumonia Sputum culture with MSSA Wound care consulted, appreciate assistance Wound culture with Staph aureus and group B Strep MRI revealed osteomyelitis Surgery consulted, appreciate assistance Transitioned to Ancef per sensitivities Patient agrees to left below the knee amputation T2DM with diabetic foot wound Sliding scale insulin Polysubstance abuse regulatory services consultant consulted, appreciate assistance DVT ppx: Lovenox Endotracheally intubated, resolved Acute respiratory failure with hypoxia, resolved Drug overdose, resolved Septic shock, resolved Diagnosis/Problems Diagnosis/Problems (1) Acute osteomyelitis of left tibia Status: Acute (2) Septic shock Status: Resolved Resolution Date/Time: 11/20/20 @ 10:53 (3) Left lower lobe pneumonia Status: Acute Qualifiers: Pneumonia type: due to unspecified organism Qualified Codes: J18.9 - Pneumonia, unspecified organism (4) Amputation stump infection Status: Acute (5) Drug overdose, multiple drugs Status: Acute Qualifiers: Encounter type: initial encounter Injury intent: undetermined intent Qualified Codes: T50.914A - Poisoning by multiple unspecified drugs, medicaments and biological substances, undetermined, initial encounter (6) T2DM (type 2 diabetes mellitus) Status: Acute Qualifiers: Diabetes mellitus residential insulin use: with residential use Diabetes mellitus complication status: with skin complications Diabetes mellitus compl ication detail: with foot ulcer Qualified Codes: E11.621 - Type 2 diabetes mellitus with foot ulcer; L97.509 - Non-pressure chronic ulcer of other part of unspecified foot with unspecified severity; Z79.4 - longterm (current) use of insulin FLORY BARBOSA MD November 22, 2020 10:15
--- NOTE | 2020-11-22 11:44 | Progress Note ---
Subjective Date Seen by a Provider: November 22, 2020 Time Seen by a Provider: 11:00 Subjective/Events-last exam doing well. continuing with wound care to open wound. Objective Exam Vital Signs Date Time Temp Pulse Resp B/P (MAP) Pulse Ox O2 Delivery O2 Flow Rate FiO2 11/22/20 11:24 36.8 56 18 123/70 (87) 98 Room Air 11/22/20 08:18 64 11/22/20 08:02 36.4 59 18 139/76 (97) 98 Room Air 11/22/20 08:00 Room Air 11/22/20 04:00 36.8 61 18 140/78 (98) 98 Room Air 11/21/20 23:59 36.0 68 18 128/72 (90) 99 Room Air 11/21/20 20:55 36.6 65 18 123/64 (83) 97 Room Air 11/21/20 20:00 Room Air 11/21/20 19:00 60 11/21/20 16:00 36.5 59 18 125/68 (87) 97 Room Air 11/21/20 13:00 56 I & O 11/22/20 07:00 Intake Total 2590 ml Output Total 1775 ml Balance 815 ml Capillary Refill : Less Than 3 Seconds General Appearance: No Apparent Distress HEENT: PERRL/EOMI Neck: Full Range of Motion Respiratory: Chest Non Tender, Normal Breath Sounds Cardiovascular: Regular Rate, Rhythm Gastrointestinal: normal bowel sounds, non tender, soft Extremity: Normal Capillary Refill Neurologic/Psychiatric: Alert, Oriented x3 Skin: Normal Color Lymphatic: No Adenopathy Results Lab Laboratory Tests 11/21/20 16:24: Glucometer 184H 11/21/20 20:32: Glucometer 198H 11/22/20 04:50: White Blood Count 6.9, Red Blood Count 3.07L, Hemoglobin 9.5L, Hematocrit 28L, Mean Corpuscular Volume 92, Mean Corpuscular Hemoglobin 31, Mean Corpuscular Hemoglobin Concent 34, Red Cell Distribution Width 12.7, Platelet Count 299, Mean Platelet Volume 9.4, Immature Granulocyte % (Auto) 0, Neutrophils (%) (Auto) 60, Lymphocytes (%) (Auto) 20, Monocytes (%) (Auto) 9, Eosinophils (%) (Auto) 9, Basophils (%) (Auto) 1, Neutrophils # (Auto) 4.1, Lymphocytes # (Auto) 1.4, Monocytes # (Auto) 0.7, Eosinophils # (Auto) 0.6H, Basophils # (Auto) 0.1, Immature Granulocyte # (Auto) 0.0, Sodium Level 141, Potassium Level 3.1L, Chloride Level 107, Carbon Dioxide Level 21, Anion Gap 13, Blood Urea Nitrogen 10, Creatinine 0.75, Estimat Glomerular Filtration Rate > 60, BUN/Creatinine Ratio 13, Glucose Level 191H, Calcium Level 8.2L, Phosphorus Level 1.9L, Magnesium Level 1.6 11/22/20 10:49: Glucometer 296H Microbiology 11/20/20 Catheter Tip Culture - Preliminary, Resulted No growth 11/18/20 Gram Stain - Final, Complete 11/18/20 Wound Culture - Final, Complete Staphylococcus aureus Strep agalactiae Group B See Comments 11/16/20 MRSA Screen - Final, Complete MRSA not isolated Assessment/Plan Assessment/Plan Assess & Plan/Chief Complaint osteomyelitis left tibia with open wound. wound care for now. recommended formal BKA due to osteomyelitis however patient resistant as of now. will follow. BLADIMIR DAVIDSON MD November 22, 2020 11:44
[2020-11-23] MEDS: NYSTATIN ORAL SUSP 5 ML UDC PO SCH ×4 (00:15→17:27)
[2020-11-23] MEDS: HYDROcodone/APAP 7.5 MG/325 MG (LORTAB, LORCET PLUS) TABLET PO PRN ×5 (04:07→22:20)
[2020-11-23] MEDS: inSUlin ASPART (NovoLOG) 1 UNIT/0.01 ML (CHARGE PER UNIT) SC SCH ×4 (05:49→21:02)
[2020-11-23] MEDS: ceFAZolin INJECTION 1,000 MG in WATER (STERILE) FOR INJECTION 10 ML IV SCH ×3 (05:49→21:02)
[2020-11-23 06:00] LABS: BASOPHILS # (AUTO) 0.1 10^3/uL (0.0-0.1); BASOPHILS % (AUTO) 1 % (0-10); EOSINOPHILS # (AUTO) 0.4 10^3/uL (0.0-0.3); EOSINOPHILS % (AUTO) 6 % (0-10); HEMATOCRIT 28 % (40-54); HEMOGLOBIN 9.4 g/dL (13.3-17.7); LYMPHOCYTES # (AUTO) 1.3 10^3/uL (1.0-4.0); LYMPHOCYTES % (AUTO) 19 % (12-44); MEAN CORPUSCULAR HEMOGLOBIN 31 pg (25-34); MEAN CORPUSCULAR HGB CONC 34 g/dL (32-36); MEAN CORPUSCULAR VOLUME 93 fL (80-99); MEAN PLATELET VOLUME 9.6 fL (9.0-12.2); MONOCYTES # (AUTO) 0.7 10^3/uL (0.0-1.0); MONOCYTES % (AUTO) 10 % (0-12); NEUTROPHILS # (AUTO) 4.4 10^3/uL (1.8-7.8); NEUTROPHILS % (AUTO) 64 % (42-75); PLATELET COUNT 303 10^3/uL (130-400); WHITE BLOOD COUNT 6.9 10^3/uL (4.3-11.0)
[2020-11-23 06:07] LABS: CHLORIDE 106 MMOL/L (98-107); POTASSIUM 3.6 MMOL/L (3.6-5.0); SODIUM 140 MMOL/L (135-145)
[2020-11-23 06:08] LABS: CALCIUM 8.4 MG/DL (8.5-10.1)
[2020-11-23 06:09] LABS: GLUCOSE 238 MG/DL (70-105)
[2020-11-23 06:10] LABS: CARBON DIOXIDE 22 MMOL/L (21-32)
[2020-11-23 06:13] LABS: CREATININE SERUM 0.75 MG/DL (0.60-1.30); GFR ESTIMATED > 60; PHOSPHORUS 2.2 MG/DL (2.3-4.7)
[2020-11-23 06:14] LABS: BUN/CREATININE RATIO 13
[2020-11-23 06:15] LABS: MAGNESIUM 1.7 MG/DL (1.6-2.4)
[2020-11-23] MEDS: ENOXAPARIN 40 MG/0.4 ML (LOVENOX) SYR SC SCH (08:39)
[2020-11-23] MEDS: PANTOPRAZOLE 40 MG (PROTONIX) TAB PO SCH (08:39)
[2020-11-23] MEDS: meTOprolol TARTRATE 25 MG (LOPRESSOR) TABLET PO SCH ×2 (08:40→19:26)
--- NOTE | 2020-11-23 10:09 | Progress Note - Hospitalist ---
Subjective HPI/CC On Admission Date Seen by Provider: November 23, 2020 Time Seen by Provider: 09:15 Pt is a 65yoCM with a PMH of IDDMII, HLD, and chronic pain who presented to the ER due to decreased responsiveness. He is currently intubated and sedated and unable to provide any history. All history obtained from the records. I'm unsure when this all started but daughter apparently was with him and kept trying to wake him for a couple of hours.. Information from the record indicates his daughter was aware and is concerned about his medications as he hides them. He had a GCS of 8 on arrival and was intubated in the ER. He is currently sedated and appears comfortable. Subjective/Events-last exam He continues to have left leg pain. He is reluctant to proceed with surgery but understanding that this is the best option to resolve his infection. He reports that he was using drugs including methamphetamine prior to his admission. He agrees that it would not be safe to send him home with a PICC line for an tibiotics. He is agreeable to proceeding with surgery. He denies any fevers or chills. He has no other complaints or concerns. Objective Exam Vital Signs Vital Signs Date Time Temp Pulse Resp B/P (MAP) Pulse Ox O2 Delivery O2 Flow Rate FiO2 11/23/20 08:00 36.7 62 18 126/74 (91) 99 Room Air 11/20/20 04:00 30 11/20/20 02:00 20.00 30.00 Capillary Refill : Less Than 3 Seconds General Appearance: No Apparent Distress, Chronically ill Respiratory: Lungs Clear, Normal Breath Sounds, No Respiratory Distress Cardiovascular: Regular Rate, Rhythm, No Murmur Gastrointestinal: Normal Bowel Sounds, Non Tender, Soft Extremity: Other (Left foot/ankle amputation with anterior tibial ulcer and bandage in place) Neurologic/Psychiatric: Alert, Oriented x3, Normal Mood/Affect Skin: Other (Left anterior tibial ulcer) Results/Procedures Lab Laboratory Tests 11/23/20 05:20 Patient resulted labs reviewed. Imaging: Reviewed Imaging Report Assessment/Plan Assessment and Plan Assess & Plan/Chief Complaint Osteomyelitis of left tibia due to MSSA and group B Strep History of left foot amputation Pneumonia Sputum culture with MSSA Wound care consulted, appreciate assistance Wound culture with MSSA and group B Strep MRI revealed osteomyelitis Surgery consulted, appreciate assistance Continue Ancef per sensitivities Long-term outpatient antibiotics not advised due to substance abuse and overdose Patient is agreeable to surgery T2DM with diabetic foot wound Sliding scale insulin Polysubstance abuse director learning services consulted, appreciate assistance DVT ppx: Lovenox Endotracheally intubated, resolved Acute respiratory failure with hypoxia, resolved Drug overdose, resolved Septic shock, resolved Diagnosis/Problems Diagnosis/Problems (1) Acute osteomyelitis of left tibia Status: Acute (2) Septic shock Status: Resolved Resolution Date/Time: 11/20/20 @ 10:53 (3) Left lower lobe pneumonia Status: Acute Qualifiers: Pneumonia type: due to unspecified organism Qualified Codes: J18.9 - Pneumonia, unspecified organism (4) Amputation stump infection Status: Acute (5) Drug overdose, multiple drugs Status: Acute Qualifiers: Encounter type: initial encounter Injury intent: undetermined intent Qualified Codes: T50.914A - Poisoning by multiple unspecified drugs, medicaments and biological substances, undetermined, initial encounter (6) T2DM (type 2 diabetes mellitus) Status: Acute Qualifiers: Diabetes mellitus half-way insulin use: with half-way use Diabetes mellitus complication status: with skin complications Diabetes mellitus complication detail: with foot ulcer Qualified Codes: E11.621 - Type 2 diabetes mellitus with foot ulcer; L97.509 - Non-pressure chronic ulcer of other part of unspecified foot with unspecified severity; Z79.4 - intermediate project manager (current) use of insulin FLORY BARBOSA MD November 23, 2020 10:09
--- NOTE | 2020-11-23 10:23 | Progress Note ---
Subjective Date Seen by a Provider: November 23, 2020 Time Seen by a Provider: 10:00 Subjective/Events-last exam doing well. patient now amenable to BKA. will cont abx and wound care for now. Objective Exam Vital Signs Date Time Temp Pulse Resp B/P (MAP) Pulse Ox O2 Delivery O2 Flow Rate FiO2 11/23/20 08:00 36.7 62 18 126/74 (91) 99 Room Air 11/23/20 00:15 36.4 54 20 116/65 (82) 98 Room Air 11/22/20 19:30 Room Air 11/22/20 15:21 36.4 57 16 131/71 (91) 98 Room Air 11/22/20 11:24 36.8 56 18 123/70 (87) 98 Room Air I & O 11/23/20 06:59 Intake Total 3120 ml Output Total 1525 ml Balance 1595 ml Capillary Refill : Less Than 3 Seconds General Appearance: No Apparent Distress HEENT: PERRL/EOMI Neck: Full Range of Motion Respiratory: Chest Non Tender Cardiovascular: Regular Rate, Rhythm Gastrointestinal: normal bowel sounds, non tender, soft Extremity: Normal Capillary Refill, Other (open wound left foot stump) Neurologic/Psychiatric: Alert, Oriented x3 Skin: Normal Color Lymphatic: No Adenopathy Results Lab Laboratory Tests 11/22/20 10:49: Glucometer 296H 11/22/20 15:19: Glucometer 200H 11/22/20 21:08: Glucometer 259H 11/23/20 05:20: White Blood Count 6.9, Red Blood Count 3.00L, Hemoglobin 9.4L, Hematocrit 28L, Mean Corpuscular Volume 93, Mean Corpuscular Hemoglobin 31, Mean Corpuscular Hemoglobin Concent 34, Red Cell Distribution Width 12.8, Platelet Count 303, Mean Platelet Volume 9.6, Immature Granulocyte % (Auto) 1, Neutrophils (%) (Auto) 64, Lymphocytes (%) (Auto) 19, Monocytes (%) (Auto) 10, Eosinophils (%) (Auto) 6, Basophils (%) (Auto) 1, Neutrophils # (Auto) 4.4, Lymphocytes # (Auto) 1.3, Monocytes # (Auto) 0.7, Eosinophils # (Auto) 0.4H, Basophils # (Auto) 0.1, Immature Granulocyte # (Auto) 0.1, Sodium Level 140, Potassium Level 3.6, Chloride Level 106, Carbon Dioxide Level 22, Anion Gap 12, Blood Urea Nitrogen 10, Creatinine 0.75, Estimat Glomerular Filtration Rate > 60, BUN/Creatinine Ratio 13, Glucose Level 238H, Calcium Level 8.4L, Phosphorus Level 2.2L, Magnesium Level 1.7 11/23/20 05:39: Glucometer 230H Microbiology 11/20/20 Catheter Tip Culture - Preliminary, Resulted No growth 11/18/20 Gram Stain - Final, Complete 11/18/20 Wound Culture - Final, Complete Staphylococcus aureus Strep agalactiae Group B See Comments 11/16/20 MRSA Screen - Final, Complete MRSA not isolated Assessment/Plan Assessment/Plan Assess & Plan/Chief Complaint osteomyelitis left tibia with open wound. wound care for now and abx for now will plan for formal BKA due to osteomyelitis on wednesday(11/26) will follow. BLADIMIR DAVIDSON MD November 23, 2020 10:23
[2020-11-24] MEDS: HYDROcodone/APAP 7.5 MG/325 MG (LORTAB, LORCET PLUS) TABLET PO PRN ×5 (03:32→20:33)
[2020-11-24 04:53] LABS: BASOPHILS % (AUTO) 1 % (0-10); EOSINOPHILS # (AUTO) 0.3 10^3/uL (0.0-0.3); EOSINOPHILS % (AUTO) 4 % (0-10); HEMATOCRIT 28 % (40-54); HEMOGLOBIN 9.5 g/dL (13.3-17.7); LYMPHOCYTES # (AUTO) 1.5 10^3/uL (1.0-4.0); LYMPHOCYTES % (AUTO) 21 % (12-44); MEAN CORPUSCULAR HEMOGLOBIN 31 pg (25-34); MEAN CORPUSCULAR HGB CONC 34 g/dL (32-36); MEAN CORPUSCULAR VOLUME 92 fL (80-99); MEAN PLATELET VOLUME 9.7 fL (9.0-12.2); MONOCYTES # (AUTO) 0.7 10^3/uL (0.0-1.0); MONOCYTES % (AUTO) 10 % (0-12); NEUTROPHILS # (AUTO) 4.4 10^3/uL (1.8-7.8); NEUTROPHILS % (AUTO) 63 % (42-75); PLATELET COUNT 319 10^3/uL (130-400); WHITE BLOOD COUNT 6.9 10^3/uL (4.3-11.0)
[2020-11-24 05:01] LABS: CHLORIDE 104 MMOL/L (98-107); POTASSIUM 3.7 MMOL/L (3.6-5.0); SODIUM 139 MMOL/L (135-145)
[2020-11-24 05:03] LABS: CALCIUM 8.3 MG/DL (8.5-10.1); GLUCOSE 265 MG/DL (70-105)
[2020-11-24 05:05] LABS: CARBON DIOXIDE 23 MMOL/L (21-32)
[2020-11-24 05:07] LABS: CREATININE SERUM 0.75 MG/DL (0.60-1.30); GFR ESTIMATED > 60; PHOSPHORUS 2.2 MG/DL (2.3-4.7)
[2020-11-24 05:08] LABS: BUN/CREATININE RATIO 13
[2020-11-24 05:09] LABS: MAGNESIUM 1.7 MG/DL (1.6-2.4)
[2020-11-24] MEDS: NYSTATIN ORAL SUSP 5 ML UDC PO SCH ×4 (05:18→18:03)
[2020-11-24] MEDS: ceFAZolin INJECTION 1,000 MG in WATER (STERILE) FOR INJECTION 10 ML IV SCH ×3 (05:18→20:43)
[2020-11-24] MEDS: inSUlin ASPART (NovoLOG) 1 UNIT/0.01 ML (CHARGE PER UNIT) SC SCH ×6 (05:25→20:43)
[2020-11-24] MEDS: meTOprolol TARTRATE 25 MG (LOPRESSOR) TABLET PO SCH ×2 (07:43→19:45)
[2020-11-24] MEDS: ENOXAPARIN 40 MG/0.4 ML (LOVENOX) SYR SC SCH (07:43)
[2020-11-24] MEDS: PANTOPRAZOLE 40 MG (PROTONIX) TAB PO SCH (07:43)
[2020-11-24] MEDS ORDERED: POT PHOS/NA PHOS (K-PHOS NEUTRAL) PO ONE (08:15)
--- NOTE | 2020-11-24 10:27 | Progress Note - Hospitalist ---
Subjective HPI/CC On Admission Date Seen by Provider: November 24, 2020 Time Seen by Provider: 09:15 Pt is a 65yoCM with a PMH of IDDMII, HLD, and chronic pain who presented to the ER due to decreased responsiveness. He is currently intubated and sedated and unable to provide any history. All history obtained from the records. I'm unsure when this all started but daughter apparently was with him and kept trying to wake him for a couple of hours.. Information from the record indicates his daughter was aware and is concerned about his medications as he hides them. He had a GCS of 8 on arrival and was intubated in the ER. He is currently sedated and appears comfortable. Subjective/Events-last exam He continues to have pain in his left leg. He remains agreeable to surgery on Wednesday. He has no other complaints or concerns. Objective Exam Vital Signs Vital Signs Date Time Temp Pulse Resp B/P (MAP) Pulse Ox O2 Delivery O2 Flow Rate FiO2 11/24/20 08:00 Room Air 11/24/20 07:52 36.7 70 16 146/82 (103) 98 11/23/20 08:00 100 11/20/20 02:00 20.00 30.00 Capillary Refill : Less Than 3 Seconds General Appearance: No Apparent Distress, Chronically ill, Thin Respiratory: Lungs Clear, Normal Breath Sounds, No Respiratory Distress Cardiovascular: Regular Rate, Rhythm, No Edema, No Murmur Gastrointestinal: Normal Bowel Sounds, Non Tender, Soft Extremity: Other (Left foot amputation with anterior tibial ulcer and bandage in place) Neurologic/Psychiatric: Alert, Oriented x3, No Motor/Sensory Deficits, Depressed Affect Results/Procedures Lab Laboratory Tests 11/24/20 04:27 Patient resulted labs reviewed. Imaging: Reviewed Imaging Report Assessment/Plan Assessment and Plan Assess & Plan/Chief Complaint Osteomyelitis of left tibia due to MSSA and group B Strep History of left foot amputation Pneumonia Sputum culture with MSSA Wound care consulted, appreciate assistance Wound culture with MSSA and group B Strep MRI revealed osteomyelitis Surgery consulted, appreciate assistance Continue Ancef per sensitivities Long-term outpatient antibiotics not advised due to substance abuse and overdose Patient is agreeable to BKA, planned for WednesdayNovember 26 T2DM with diabetic foot wound Add Levemir Add Novolog with meals Sliding scale insulin Polysubstance abuse transaction advisory services manager consulted, appreciate assistance DVT ppx: Lovenox Endotracheally intubated, resolved Acute respiratory failure with hypoxia, resolved Drug overdose, resolved Septic shock, resolved Diagnosis/Problems Diagnosis/Problems (1) Acute osteomyelitis of left tibia Status: Acute (2) Septic shock Status: Resolved Resolution Date/Time: 11/20/20 @ 10:53 (3) Left lower lobe pneumonia Status: Acute Qualifiers: Pneumonia type: due to unspecified organism Qualified Codes: J18.9 - Pneumonia, unspecified organism (4) Amputation stump infection Status: Acute (5) Drug overdose, multiple drugs Status: Acute Qualifiers: Encounter type: initial encounter Injury intent: undetermined intent Qualified Codes: T50.914A - Poisoning by multiple unspecified drugs, medicaments and biological substances, undetermined, initial encounter (6) T2DM (type 2 diabetes mellitus) Status: Acute Qualifiers: Diabetes mellitus shelter insulin use: with laborer marine terminal use Diabetes mellitus complication status: with skin complications Diabetes mellitus complication detail: with foot ulcer Qualified Codes: E11.621 - Type 2 diabetes mellitus with foot ulcer; L97.509 - Non-pressure chronic ulcer of other part of unspecified foot with unspecified severity; Z79.4 - superintendent container terminal (current) use of insulin FLORY BARBOSA MD November 24, 2020 10:27
[2020-11-25] MEDS: HYDROcodone/APAP 7.5 MG/325 MG (LORTAB, LORCET PLUS) TABLET PO PRN ×6 (00:19→20:38)
[2020-11-25] MEDS: NYSTATIN ORAL SUSP 5 ML UDC PO SCH ×4 (00:19→17:47)
[2020-11-25 04:28] LABS: BASOPHILS # (AUTO) 0.1 10^3/uL (0.0-0.1); BASOPHILS % (AUTO) 1 % (0-10); EOSINOPHILS # (AUTO) 0.3 10^3/uL (0.0-0.3); EOSINOPHILS % (AUTO) 4 % (0-10); HEMATOCRIT 29 % (40-54); HEMOGLOBIN 9.9 g/dL (13.3-17.7); LYMPHOCYTES # (AUTO) 1.5 10^3/uL (1.0-4.0); LYMPHOCYTES % (AUTO) 22 % (12-44); MEAN CORPUSCULAR HEMOGLOBIN 31 pg (25-34); MEAN CORPUSCULAR HGB CONC 34 g/dL (32-36); MEAN CORPUSCULAR VOLUME 92 fL (80-99); MEAN PLATELET VOLUME 9.8 fL (9.0-12.2); MONOCYTES # (AUTO) 0.7 10^3/uL (0.0-1.0); MONOCYTES % (AUTO) 11 % (0-12); NEUTROPHILS # (AUTO) 4.1 10^3/uL (1.8-7.8); NEUTROPHILS % (AUTO) 61 % (42-75); PLATELET COUNT 381 10^3/uL (130-400); WHITE BLOOD COUNT 6.6 10^3/uL (4.3-11.0)
[2020-11-25 04:40] LABS: CHLORIDE 105 MMOL/L (98-107); POTASSIUM 4.1 MMOL/L (3.6-5.0); SODIUM 140 MMOL/L (135-145)
[2020-11-25 04:41] LABS: CALCIUM 8.7 MG/DL (8.5-10.1)
[2020-11-25 04:42] LABS: GLUCOSE 248 MG/DL (70-105)
[2020-11-25 04:43] LABS: CARBON DIOXIDE 23 MMOL/L (21-32)
[2020-11-25 04:46] LABS: CREATININE SERUM 0.82 MG/DL (0.60-1.30); GFR ESTIMATED > 60
[2020-11-25 04:47] LABS: BUN/CREATININE RATIO 15
[2020-11-25 04:48] LABS: MAGNESIUM 1.7 MG/DL (1.6-2.4)
[2020-11-25] MEDS: ceFAZolin INJECTION 1,000 MG in WATER (STERILE) FOR INJECTION 10 ML IV SCH ×3 (05:07→23:10)
[2020-11-25] MEDS: inSUlin ASPART (NovoLOG) 1 UNIT/0.01 ML (CHARGE PER UNIT) SC SCH ×7 (05:12→22:53)
[2020-11-25] MEDS: meTOprolol TARTRATE 25 MG (LOPRESSOR) TABLET PO SCH ×2 (08:05→23:34)
[2020-11-25] MEDS: PANTOPRAZOLE 40 MG (PROTONIX) TAB PO SCH (08:05)
[2020-11-25] MEDS: ENOXAPARIN 40 MG/0.4 ML (LOVENOX) SYR SC SCH (08:06)
[2020-11-25] MEDS: fentaNYL INJ 100 MCG/2 ML AMP IVP PRN (10:22)
--- NOTE | 2020-11-25 10:50 | Progress Note - Hospitalist ---
Subjective HPI/CC On Admission Date Seen by Provider: November 25, 2020 Time Seen by Provider: 10:47 Pt is a 65yoCM with a PMH of IDDMII, HLD, and chronic pain who presented to the ER due to decreased responsiveness. He is currently intubated and sedated and unable to provide any history. All history obtained from the records. I'm unsure when this all started but daughter apparently was with him and kept trying to wake him for a couple of hours.. Information from the record indicates his daughter was aware and is concerned about his medications as he hides them. He had a GCS of 8 on arrival and was intubated in the ER. He is currently sedated and appears comfortable. Subjective/Events-last exam Pt reports doing well but having some leg pain. Ready for surgery so he can "get off pain meds." No other concerns or questions. Objective Exam Vital Signs Vital Signs Date Time Temp Pulse Resp B/P (MAP) Pulse Ox O2 Delivery O2 Flow Rate FiO2 11/25/20 08:00 Room Air 11/25/20 07:51 36.6 63 16 141/82 (101) 99 11/23/20 08:00 100 11/20/20 02:00 20.00 30.00 Capillary Refill : Less Than 3 Seconds General Appearance: No Apparent Distress, Chronically ill, Thin Respiratory: Lungs Clear, No Respiratory Distress Cardiovascular: Regular Rate, Rhythm, No Murmur Gastrointestinal: Normal Bowel Sounds, Soft Extremity: Other (s/p left BKA) Neurologic/Psychiatric: Alert, Oriented x3 Results/Procedures Lab Laboratory Tests 11/25/20 04:00 Patient resulted labs reviewed. Imaging: Reviewed Imaging Report Assessment/Plan Assessment and Plan Assess & Plan/Chief Complaint Osteomyelitis of left tibia due to MSSA and group B Strep History of left foot amputation Pneumonia Sputum culture with MSSA Wound care consulted, appreciate assistance Wound culture with MSSA and group B Strep MRI revealed osteomyelitis Surgery consulted, appreciate assistance Continue Ancef per sensitivities Long-term outpatient antibiotics not advised due to substance abuse and overdose Patient is agreeable to BKA, planned for WednesdayNovember 26 T2DM with diabetic foot wound Continue Levemir Continue Novolog with meals Sliding scale insulin Polysubstance abuse emergency services professional consulted, appreciate assistance DVT ppx: Lovenox- hold tomorrow dose for surgery Endotracheally intubated, resolved Acute respiratory failure with hypoxia, resolved Drug overdose, resolved Septic shock, resolved BRITTNI CARRASCO MD November 25, 2020 10:50
--- NOTE | 2020-11-25 18:43 | Progress Note-Pre Operative ---
Pre-Operative Progress Note H&P Reviewed The H&P was reviewed, patient examined and no changes noted. Date Seen by Provider: November 25, 2020 Time Seen by Provider: 18:45 Date H&P Reviewed: November 25, 2020 Time H&P Reviewed: 18:45 Pre-Operative Diagnosis: left distal tibial osteomyelitis BLADIMIR DAVIDSON MD November 25, 2020 18:43
[2020-11-26] VITALS (7 sets, daily range): BP systolic 126–163; BP diastolic 82–96
[2020-11-26] MEDS: NYSTATIN ORAL SUSP 5 ML UDC PO SCH ×4 (00:26→17:40)
[2020-11-26] MEDS: HYDROcodone/APAP 7.5 MG/325 MG (LORTAB, LORCET PLUS) TABLET PO PRN ×4 (00:27→20:24)
[2020-11-26 04:37] LABS: BASOPHILS # (AUTO) 0.1 10^3/uL (0.0-0.1); BASOPHILS % (AUTO) 1 % (0-10); EOSINOPHILS # (AUTO) 0.3 10^3/uL (0.0-0.3); EOSINOPHILS % (AUTO) 5 % (0-10); HEMATOCRIT 31 % (40-54); HEMOGLOBIN 10.4 g/dL (13.3-17.7); LYMPHOCYTES # (AUTO) 1.4 10^3/uL (1.0-4.0); LYMPHOCYTES % (AUTO) 21 % (12-44); MEAN CORPUSCULAR HEMOGLOBIN 32 pg (25-34); MEAN CORPUSCULAR HGB CONC 34 g/dL (32-36); MEAN CORPUSCULAR VOLUME 94 fL (80-99); MEAN PLATELET VOLUME 9.6 fL (9.0-12.2); MONOCYTES # (AUTO) 0.8 10^3/uL (0.0-1.0); MONOCYTES % (AUTO) 12 % (0-12); NEUTROPHILS # (AUTO) 4.1 10^3/uL (1.8-7.8); NEUTROPHILS % (AUTO) 61 % (42-75); PLATELET COUNT 374 10^3/uL (130-400); WHITE BLOOD COUNT 6.7 10^3/uL (4.3-11.0)
[2020-11-26 04:50] LABS: CHLORIDE 104 MMOL/L (98-107); POTASSIUM 3.9 MMOL/L (3.6-5.0); SODIUM 141 MMOL/L (135-145)
[2020-11-26 04:51] LABS: CALCIUM 8.9 MG/DL (8.5-10.1)
[2020-11-26 04:52] LABS: GLUCOSE 198 MG/DL (70-105)
[2020-11-26 04:53] LABS: CARBON DIOXIDE 26 MMOL/L (21-32)
[2020-11-26 04:55] LABS: CREATININE SERUM 0.82 MG/DL (0.60-1.30); GFR ESTIMATED > 60; PHOSPHORUS 2.7 MG/DL (2.3-4.7)
[2020-11-26 04:56] LABS: BUN/CREATININE RATIO 17
[2020-11-26 04:58] LABS: MAGNESIUM 1.8 MG/DL (1.6-2.4)
[2020-11-26] MEDS: ceFAZolin INJECTION 1,000 MG in WATER (STERILE) FOR INJECTION 10 ML IV SCH ×2 (05:54→14:15)
[2020-11-26] MEDS: inSUlin ASPART (NovoLOG) 1 UNIT/0.01 ML (CHARGE PER UNIT) SC SCH ×7 (05:58→20:24)
[2020-11-26] MEDS: PANTOPRAZOLE 40 MG (PROTONIX) TAB PO SCH (08:19)
[2020-11-26] MEDS: fentaNYL INJ 100 MCG/2 ML AMP IVP PRN (08:32)
--- NOTE | 2020-11-26 08:44 | Cardiology Progress Note ---
Subjective Date Seen by Provider: Nov 26, 2020 Time Seen by Provider: 08:43 Subjective/Events-last exam Patient was seen at bedside, laying down comfortably, asking for food Review of Systems General: No Chills, No Night Sweats, No Fatigue, No Malaise, No Appetite, No Other HEENT: No Head Aches, No Visual Changes, No Eye Pain, No Ear Pain, No Dysphasia, No Sinus Congestion, No Post Nasal Drip, No Sore Throat, No Other Pulmonary: No Dyspnea, No Cough, No Pleuritic Chest Pain, No Other Cardiovascular: No: Chest Pain, Palpitations, Orthopnea, Paroxysmal Noc. Dyspnea, Edema, Lt Headedness, Other Objective-Cardiology Exam Last Set of Vital Signs Vital Signs 11/23/20 11/25/20 11/26/20 08:00 15:06 08:00 Temp 36.5 Pulse 65 Resp 18 B/P (MAP) 141/80 (100) Pulse Ox 99 O2 Delivery Room Air O2 Flow Rate 0.00 FiO2 100 Capillary Refill : Less Than 3 Seconds I&O Intake and Output 11/26/20 00:00 Intake Total 2573 ml Output Total 3600 ml Balance -1027 ml Intake Oral 2563 ml IV Total 10 ml Output Urine Total 3600 ml General: Alert, Oriented X3, Cooperative, Mild Distress HEENT: Atraumatic, PERRLA Neck: Supple, No JVD Lungs: Normal Air Movement, Other (Bilateral rhonchi) Heart: Regular Rate, Normal S1, Normal S2 Abdomen: Normal Bowel Sounds Extremities: No Clubbing, Other (Mild edema, BKA) Skin: No Rashes Neuro: Normal Speech Psych/Mental Status: Mood NL Results Lab Laboratory Tests 11/26/20 03:49 A/P-Cardiology Admission Diagnosis Acute respiratory failure Pneumonia Sepsis Sinus bradycardia Assessment/Plan Status post acute respiratory failure secondary to drug overdose, better today, has been moved to the fourth floor and recovering slowly. Pneumonia, receiving antibiotic, borderline hypotension, continue to monitor bl ood pressure, use IV fluid for sepsis Sinus bradycardia, Heart rate is back to normal. Continue to monitor Left foot amputation, osteomyelitis, Scheduled for BKA today. Echocardiogram was done on 11/17/2020 showing normal LV size, EF 55 to 65% History of left BKA. Methadone and methamphetamine overdose. MJ TYLER MD Nov 26, 2020 08:44
[2020-11-26] MEDS: meTOprolol TARTRATE 25 MG (LOPRESSOR) TABLET PO SCH ×2 (08:46→20:23)
--- NOTE | 2020-11-26 09:06 | Progress Note - Hospitalist ---
Subjective HPI/CC On Admission Date Seen by Provider: Nov 26, 2020 Time Seen by Provider: 09:05 Pt is a 65yoCM with a PMH of IDDMII, HLD, and chronic pain who presented to the ER due to decreased responsiveness. He is currently intubated and sedated and unable to provide any history. All history obtained from the records. I'm unsure when this all started but daughter apparently was with him and kept trying to wake him for a couple of hours.. Information from the record indicates his daughter was aware and is concerned about his medications as he hides them. He had a GCS of 8 on arrival and was intubated in the ER. He is currently sedated and appears comfortable. Subjective/Events-last exam Pt reports doing well but feeling anxious for surgery. He is adamant that he will get his DM under control after this. Objective Exam Vital Signs Vital Signs Date Time Temp Pulse Resp B/P (MAP) Pulse Ox O2 Delivery O2 Flow Rate FiO2 11/26/20 08:57 Room Air 11/26/20 08:00 36.5 65 18 141/80 (100) 99 11/25/20 15:06 0.00 11/23/20 08:00 100 Capillary Refill : Less Than 3 Seconds General Appearance: No Apparent Distress, Anxious Respiratory: Lungs Clear, No Respiratory Distress Cardiovascular: Regular Rate, Rhythm, No Murmur Neurologic/Psychiatric: Alert, Oriented x3 Results/Procedures Lab Laboratory Tests 11/26/20 03:49 Patient resulted labs reviewed. Imaging: Reviewed Imaging Report Assessment/Plan Assessment and Plan Assess & Plan/Chief Complaint Osteomyelitis of left tibia due to MSSA and group B Strep History of left foot amputation Pneumonia Sputum culture with MSSA Wound care consulted, appreciate assistance Wound culture with MSSA and group B Strep MRI revealed osteomyelitis Surgery consulted, appreciate assistance Continue Ancef per sensitivities Long-term outpatient antibiotics not advised due to substance abuse and overdose Patient is agreeable to BKA, planned for today T2DM with diabetic foot wound Continue Levemir Continue Novolog with meals Sliding scale insulin Polysubstance abuse custodial services manager consulted, appreciate assistance DVT ppx: Lovenox- held for surgery Endotracheally intubated, resolved Acute respiratory failure with hypoxia, resolved Drug overdose, resolved Septic shock, resolved BRITTNI CARRASCO MD Nov 26, 2020 09:06
[2020-11-26] MEDS ORDERED: ONDANSETRON 4 MG/2 ML (SDV) Z0FRAN ONE (10:07)
[2020-11-26] MEDS ORDERED: LIDOCAINE PF 2% 5 ML (XYLOCAINE) VIAL ONE (10:07)
[2020-11-26] MEDS ORDERED: proPOfol 200 MG/20 ML (DIPRIVAN) VIAL IV ONE (10:07)
[2020-11-26] MEDS ORDERED: SEVOFLURANE (ULTANE) 15 ML INHAL SOLN ONE ×3 (10:07→13:58)
[2020-11-26] MEDS ORDERED: MIDAZOLAM 2 MG/2 ML (VERSED) VIAL ONE (10:07)
[2020-11-26] MEDS ORDERED: fentaNYL INJ 100 MCG/2 ML AMP ONE (10:08)
[2020-11-26] MEDS ORDERED: LIDOCAINE/EPI 1%-1:100,000 (XYLOCAINE) 20ML ONE (10:59)
[2020-11-26] MEDS ORDERED: ceFAZolin INJECTION 1,000 MG ONE (11:53)
[2020-11-26] MEDS ORDERED: WATER (STERILE) FOR INJECTION 20 ML ONE (11:53)
[2020-11-26] MEDS ORDERED: BUPIVACAINE 0.25% 30 ML (SENSORCAINE) VIAL ONE (11:57)
[2020-11-26] MEDS: LACTATED RINGERS 1,000 ML IV PRN ×2 (12:10→12:45)
[2020-11-26] MEDS ORDERED: HYDROmorphone 2 MG/ML VIAL (DILAUDID) ONE (13:03)
--- NOTE | 2020-11-26 13:41 | Progress Note-Post Operative ---
Post-Operative Progess Note Surgeon (s)/Mechanical Laboratory Technician (s) Surgeon BLADIMIR DAVIDSON MD Mechanical Laboratory Technician: monika mckee FACILITIES MAINTENANCE SUPERVISOR Pre-Operative Diagnosis left distal tibial osteomyelitis Post-Operative Diagnosis same Procedure & Operative Findings Date of Procedure 11/26/20 Procedure Performed/Findings left below the knee amputation. Anesthesia Type general LMA with femoral nerve block. Estimated Blood Loss Estimated blood loss (mL): 100ml Specimens/Packing Specimens Removed left below the knee amputation BLADIMIR DAVIDSON MD Nov 26, 2020 13:41
[2020-11-26] MEDS ORDERED: morphine INJ 10 MG/ML 1ML (SYR OR VIAL) ONE (14:19)
[2020-11-26] MEDS ORDERED: HYDROmorphone 2 MG/ML VIAL (DILAUDID) IV ONE (14:30)
[2020-11-26] MEDS ORDERED: morphine INJ 10 MG/ML 1ML (SYR OR VIAL) IVP ONE (14:30)
[2020-11-26] MEDS ORDERED: ONDANSETRON 4 MG/2 ML (SDV) Z0FRAN IVP PRN (14:30)
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
[2020-11-27] MEDS: NYSTATIN ORAL SUSP 5 ML UDC PO SCH ×5 (00:18→23:26)
[2020-11-27] MEDS: HYDROcodone/APAP 7.5 MG/325 MG (LORTAB, LORCET PLUS) TABLET PO PRN ×6 (00:19→21:08)
[2020-11-27 05:40] LABS: BASOPHILS # (AUTO) 0.1 10^3/uL (0.0-0.1); BASOPHILS % (AUTO) 1 % (0-10); EOSINOPHILS # (AUTO) 0.2 10^3/uL (0.0-0.3); EOSINOPHILS % (AUTO) 2 % (0-10); HEMATOCRIT 32 % (40-54); HEMOGLOBIN 10.6 g/dL (13.3-17.7); LYMPHOCYTES % (AUTO) 10 % (12-44); MEAN CORPUSCULAR HEMOGLOBIN 31 pg (25-34); MEAN CORPUSCULAR HGB CONC 33 g/dL (32-36); MEAN CORPUSCULAR VOLUME 93 fL (80-99); MEAN PLATELET VOLUME 9.2 fL (9.0-12.2); MONOCYTES # (AUTO) 0.7 10^3/uL (0.0-1.0); MONOCYTES % (AUTO) 8 % (0-12); NEUTROPHILS # (AUTO) 7.6 10^3/uL (1.8-7.8); NEUTROPHILS % (AUTO) 79 % (42-75); PLATELET COUNT 382 10^3/uL (130-400); WHITE BLOOD COUNT 9.5 10^3/uL (4.3-11.0)
[2020-11-27 05:56] LABS: CHLORIDE 98 MMOL/L (98-107); POTASSIUM 3.9 MMOL/L (3.6-5.0); SODIUM 135 MMOL/L (135-145)
[2020-11-27 05:57] LABS: CALCIUM 9.3 MG/DL (8.5-10.1)
[2020-11-27 05:58] LABS: GLUCOSE 369 MG/DL (70-105)
[2020-11-27 05:59] LABS: CARBON DIOXIDE 25 MMOL/L (21-32)
[2020-11-27 06:01] LABS: PHOSPHORUS 3.1 MG/DL (2.3-4.7)
[2020-11-27 06:02] LABS: CREATININE SERUM 0.92 MG/DL (0.60-1.30); GFR ESTIMATED > 60
[2020-11-27 06:03] LABS: BUN/CREATININE RATIO 11
[2020-11-27 06:04] LABS: MAGNESIUM 1.6 MG/DL (1.6-2.4)
[2020-11-27] MEDS: inSUlin ASPART (NovoLOG) 1 UNIT/0.01 ML (CHARGE PER UNIT) SC SCH ×7 (06:30→21:08)
[2020-11-27] MEDS: meTOprolol TARTRATE 25 MG (LOPRESSOR) TABLET PO SCH ×2 (08:45→21:08)
[2020-11-27] MEDS: PANTOPRAZOLE 40 MG (PROTONIX) TAB PO SCH (08:45)
--- NOTE | 2020-11-27 10:39 | Progress Note - Hospitalist ---
Subjective HPI/CC On Admission Date Seen by Provider: Nov 27, 2020 Time Seen by Provider: 10:34 Pt is a 65yoCM with a PMH of IDDMII, HLD, and chronic pain who presented to the ER due to decreased responsiveness. He is currently intubated and sedated and unable to provide any history. All history obtained from the records. I'm unsure when this all started but daughter apparently was with him and kept trying to wake him for a couple of hours.. Information from the record indicates his daughter was aware and is concerned about his medications as he hides them. He had a GCS of 8 on arrival and was intubated in the ER. He is currently sedated and appears comfortable. Subjective/Events-last exam Pt reports feeling ok today but having pain. Discussed plan for therapy to assess him today and gauge functional status. Discussed options of DC including NH, IRU, and home with outpatient or HH for therapy. He then asks me to not worry about him being addict to opoids and give him more pain medicine. We discussed the fine line of treating pain while acknowledging the risks of opoids. We also discussed how he presented to the ER obtunded from overdosing on methadone. He states he was tricked in to taking that. I assured him that we would do our best to treat his pain but that we will likely not be able to make him completely pain free. Objective Exam Vital Signs Vital Signs Date Time Temp Pulse Resp B/P (MAP) Pulse Ox O2 Delivery O2 Flow Rate FiO2 11/27/20 08:00 Room Air 11/27/20 07:48 37.0 90 18 152/76 (101) 99 11/26/20 14:35 2 11/23/20 08:00 100 Capillary Refill : Less Than 3 SecondsLess Than 3 Seconds General Appearance: Chronically ill, Thin Respiratory: No Respiratory Distress Extremity: Other (left lower extremity wrapped in gauze from surgery still) Neurologic/Psychiatric: Alert, Oriented x3 Results/Procedures Lab Laboratory Tests 11/27/20 05:33 Patient resulted labs reviewed. Imaging: Reviewed Imaging Report Assessment/Plan Assessment and Plan Assess & Plan/Chief Complaint Osteomyelitis of left tibia due to MSSA and group B Strep History of left foot amputation Pneumonia Sputum culture with MSSA Wound care consulted, appreciate assistance Wound culture with MSSA and group B Strep MRI revealed osteomyelitis Surgery consulted, appreciate assistance Continue Ancef per sensitivities Long-term outpatient antibiotics not advised due to substance abuse and overdose POD #1 from BKA T2DM with diabetic foot wound Continue Levemir Continue Novolog with meals Sliding scale insulin Polysubstance abuse banking services officer consulted, appreciate assistance DVT ppx: Lovenox can resume when ok with surgery Endotracheally intubated, resolved Acute respiratory failure with hypoxia, resolved Drug overdose, resolved Septic shock, resolved BRITTNI CARRASCO MD Nov 27, 2020 10:39
--- NOTE | 2020-11-27 10:56 | Cardiology Progress Note ---
Subjective Date Seen by Provider: Nov 27, 2020 Time Seen by Provider: 10:20 Subjective/Events-last exam Patient is in bed, c/o stump pain. Denies any chest pain Objective-Cardiology Exam Last Set of Vital Signs Vital Signs 11/23/20 11/26/20 11/27/20 08:00 14:35 16:56 Temp 36.7 Pulse 83 Resp 19 B/P (MAP) 120/73 (89) Pulse Ox 97 O2 Delivery Room Air O2 Flow Rate 2 FiO2 100 Capillary Refill : Less Than 3 SecondsLess Than 3 Seconds I&O Intake and Output 11/27/20 00:00 Intake Total 2030 ml Output Total 3300 ml Balance -1270 ml Intake Oral 1020 ml IV Total 1010 ml Output Urine Total 3200 ml Estimated Blood Loss 100 ml General: Alert, Oriented X3, Cooperative, Mild Distress HEENT: Atraumatic, PERRLA Neck: Supple, No JVD Lungs: Normal Air Movement, Other (Bilateral rhonchi) Heart: Regular Rate, Normal S1, Normal S2 Abdomen: Normal Bowel Sounds Extremities: No Clubbing, Other (Mild edema, BKA) Skin: No Rashes Neuro: Normal Speech Psych/Mental Status: Mood NL Results Lab Laboratory Tests 11/27/20 05:33 A/P-Cardiology Admission Diagnosis Acute respiratory failure Pneumonia Sepsis Sinus bradycardia Assessment/Plan Status post acute respiratory failure secondary to drug overdose, better today, has been moved to the fourth floor and recovering slowly. Pneumonia, receiving antibiotic, slowly improving. Sinus bradycardia, Heart rate is back to normal. Continue to monitor Osteomyelitis with hx of Left foot amputation, underwent L BKA yesterday, dressing is C/D/I Echocardiogram was done on 11/17/2020 showing normal LV size, EF 55 to 65% Methadone and methamphetamine overdose. Patient was seen and evaluated with Lisbet, examination performed, management plan was discussed, agree with the current scribed note, I made few changes to the note using Italic font Patient was laying down comfortably, still having pain at the stump at the surgical site Overall cardiac status is more stable, heart rate is better Patient was requesting pain medication, I discussed it with LISBET Ferro Nov 27, 2020 10:56 am MJ TYLER MD Nov 27, 2020 6:07 pm
--- NOTE | 2020-11-27 14:02 | Progress Note ---
Subjective Date Seen by a Provider: Nov 27, 2020 Time Seen by a Provider: 13:00 Subjective/Events-last exam doing well. pain mostly controlled. tolerating diet. ambulating with assistance. Objective Exam Vital Signs Date Time Temp Pulse Resp B/P (MAP) Pulse Ox O2 Delivery O2 Flow Rate FiO2 11/27/20 11:44 36.4 64 18 116/62 (80) 97 Room Air 11/27/20 08:00 Room Air 11/27/20 07:48 37.0 90 18 152/76 (101) 99 Room Air 11/27/20 03:56 36.6 77 17 153/60 (91) 99 Room Air 11/27/20 00:20 36.6 65 18 147/74 (98) 98 Room Air 11/26/20 20:25 36.4 87 20 149/74 (99) 98 Room Air 11/26/20 20:25 Room Air 11/26/20 15:09 36.7 108 16 146/79 (101) 96 Room Air 11/26/20 14:55 Room Air 11/26/20 14:55 36.2 20 128/87 (101) 96 Room Air 11/26/20 14:50 20 128/87 (101) 96 Room Air 11/26/20 14:50 Room Air 11/26/20 14:40 22 148/84 (105) 99 Room Air 11/26/20 14:35 OxyMask 2 11/26/20 14:30 19 126/82 (97) 99 OxyMask 2 11/26/20 14:20 18 150/86 (107) 99 OxyMask 4 11/26/20 14:20 OxyMask 4 11/26/20 14:10 18 148/96 (113) 99 OxyMask 8 11/26/20 14:07 OxyMask 8 11/26/20 14:07 36.5 20 163/84 (110) 99 OxyMask 8 I & O 11/27/20 07:00 Intake Total 2380 ml Output Total 4100 ml Balance -1720 ml Capillary Refill : Less Than 3 SecondsLess Than 3 Seconds General Appearance: No Apparent Distress HEENT: PERRL/EOMI Neck: Full Range of Motion Respiratory: Chest Non Tender, Lungs Clear Cardiovascular: Regular Rate, Rhythm Gastrointestinal: normal bowel sounds, non tender, soft Extremity: Normal Capillary Refill, Other (wound dressed/dry) Neurologic/Psychiatric: Alert, Oriented x3 Skin: Normal Color Lymphatic: No Adenopathy Results Lab Laboratory Tests 11/26/20 14:21: Glucometer 199H 11/26/20 15:40: Glucometer 223H 11/26/20 20:10: Glucometer 254H 11/27/20 05:33: White Blood Count 9.5, Red Blood Count 3.41L, Hemoglobin 10.6L, Hematocrit 32L, Mean Corpuscular Volume 93, Mean Corpuscular Hemoglobin 31, Mean Corpuscular Hemoglobin Concent 33, Red Cell Distribution Width 13.5, Platelet Count 382, Mean Platelet Volume 9.2, Immature Granulocyte % (Auto) 1, Neutrophils (%) (Auto) 79H, Lymphocytes (%) (Auto) 10L, Monocytes (%) (Auto) 8, Eosinophils (%) (Auto) 2, Basophils (%) (Auto) 1, Neutrophils # (Auto) 7.6, Lymphocytes # (Auto) 1.0, Monocytes # (Auto) 0.7, Eosinophils # (Auto) 0.2, Basophils # (Auto) 0.1, Immature Granulocyte # (Auto) 0.1, Sodium Level 135, Potassium Level 3.9, Chloride Level 98, Carbon Dioxide Level 25, Anion Gap 12, Blood Urea Nitrogen 10, Creatinine 0.92, Estimat Glomerular Filtration Rate > 60, BUN/Creatinine Ratio 11, Glucose Level 369H, Calcium Level 9.3, Phosphorus Level 3.1, Magnesium Level 1.6 11/27/20 11:10: Glucometer 223H Microbiology 11/20/20 Catheter Tip Culture - Final, Complete No growth 11/18/20 Gram Stain - Final, Complete 11/18/20 Wound Culture - Final, Complete Staphylococcus aureus Strep agalactiae Group B See Comments 11/16/20 MRSA Screen - Final, Complete MRSA not isolated Assessment/Plan Assessment/Plan Assess & Plan/Chief Complaint osteomyelitis left tibia with open wound s/p below the knee amputation. keep dressing on for 3 days. cont PT BLADIMIR DAVIDSON MD Nov 27, 2020 14:02
--- NOTE | 2020-11-27 14:12 | Occupational Therapy Eval ---
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 presented to ER on 11-16-20 due to OD. Put on vent and sedated. Eventually found to have osteomyelitis in left tibia that started from wound in left foot from partial amputation he sustained 48 years ago. Underwent left BKA 11-26-20. Reviewed History: Yes Social History Home: Single Level Current Living Status: Children (Lives with daughter and her children.) Entry Into Home: Stairs With Railing Steps Into Home: 3 ADL-Prior Level of Function SCALE: Activities may be completed with or without assistive devices. 0-Tmhgbnuxfs-jqwnpjd completes the activity by him/herself with no assistance from a helper. 5-Set-up or Clean-up Assistance-helper sets up or cleans up; patient completes activity. [place] assists only prior to or following the activity. 4-Supervision or Touching Assistance-helper provides verbal cues and/or touching/steadying and/or contact guard assistance as patient completes activity. Assistance may be provided throughout the activity or intermittently. 3-Partial/Moderate Assistance-helper does LESS THAN HALF the effort. [place] lifts, holds or supports trunk or limbs, but provides less than half the effort. 2-Substantial/Maximal Assistance-helper does MORE THAN HALF the effort. [place] lifts or holds trunk or limbs and provides more than half the effort. 7-Ygpabvxnc-qaobpv does ALL the effort. Patient does none of the effort to complete the activity. Or, the assistance of 2 or more helpers is required for the patient to complete the activity. If activity was not attempted, code reason: 7-Patient Refused. 9-Not Applicable-not attempted and the patient did not perform the activity before the current illness, exacerbation or injury. 10-Not Attempted due to Environmental Limitations-(lack of equipment, weather restraints, etc.). 88-Not Attempted due to Medical Conditions or Safety Concerns. ADL PLOF Comments Pt. states that prior to this episode, he was independent with daily skills such as bathing and dressing. He has a walker but didn't use it because he did not have enough UE strength. So he used crutches, but still continued to put weight through his left foot, which had a wound on it. 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 indicates that he is fearful of pain, and that he is not being given much pain medication because of something "stupid I did." Appearance Pt. in bed. Alert and finishing lunch. Agrees to work with OT. Mental Status/Objective Patient Orientation: Person, Place, Time, Situation Current Upper Extremity ROM WFL ADL-Treatment Eating (QC): 6 Oral Hygiene (QC): 7 (Pt. indicates that he has bad teeth.) On/Off Footwear (QC): 2 Other Treatments Pt. transfers slowly to side of bed, with cues to "walk" legs toward side, and then to scoot without shearing bottom on bed. He is able to bring right foot to floor, and sit balanced on EOB approximately 10 minutes. He indicates that the splint on his residual limb bothers him, but does not cause pain. Pt. and OT talk in depth regarding his goals for going home, and how he needs to focus on getting stronger through functional tasks. 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 Pt. encouraged that since he already has a prosthetic limb from previous amputation, and has already been through this, he is somewhat familiar with the process. Pt. verbalizes multiple times his concerns about his pain medications during this, and how he is afraid he wont be given enough. OT attempts to encourage him in regards to how important his health and safety is for our goals and his healing. He seems receptive and is agreeable. Transfers back to bed with SBA. All needs are met. Pt. comfortable. PT comes in room and pt. agreeable to work with PT. Education OT Patient Education: Correct positioning, Modified ADL techniques, Progress toward Goal/Update tx plan, Purpose of tx/functional activities, Reviewed precautions, Rehab process, Transfer techniques Teaching Recipient: Patient Teaching Methods: Demonstration, Discussion Response to Teaching: Verbalize Understanding, Return Demonstration OT Short Term Goals Short Term Goals Time Frame: Dec 04, 2020 Eatin Oral hygiene: 5 Toileting hygiene: 4 Shower/bathe self: 43 Upper body dressin Lower body dressin Putting on/taking off footwear: 3 OT Fdc Goals Pump And Still Operator Goals Time Frame: Dec 11, 2020 Eating (QC): 6 Oral Hygiene (QC): 6 Toileting Hygiene (QC): 66 Shower/Bathe Self (QC): 4 Upper Body Dressing (QC): 5 Lower Body Dressing (QC): 5 On/Off Footwear (QC): 6 Additional Goals: 1-Demonstrate ADL Tasks, 2-Verbalize Understanding, 3-ImproveStrength/Jessi 1=Demonstrate adherence to instructed precautions during ADL tasks. 2=Patient will verbalize/demonstrate understanding of assistive devices/modifications for ADL. 3=Patient will improve strength/tolerance for activity to enable patient to perform ADL's. OT Education/Plan Problem List/Assessment Assessment: Decreased Activ Tolerance, Dependent Transfers, Impaired Bed Mobility, Impaired I ADL's, Impaired Self-Care Skills Discharge Recommendations Plan/Recommendations: Continue POC Therapy Discharge Recommendati: Post Acute OT Treatment Plan/Plan of Care Treatment,Training & Education: Yes Patient would benefit from OT for education, treatment and training to promote independence in ADL's, mobility, safety and/or upper extremity function for ADL's. Plan of Care: ADL Retraining, Functional Mobility Treatment Duration: Dec 11, 2020 Frequency: 5 times per week Estimated Hrs Per Day: .5 hour per day Agreement: Yes Rehab Potential: Good Time/GCodes Start Time: 13:05 Stop Time: 13:40 Total Time Billed (hr/min): 35 Billed Treatment Time 1, EVM x 15minutes, FA x 20minutes EVELIA FOX OT Nov 27, 2020 14:12
--- NOTE | 2020-11-27 14:31 | Physical Therapy Evaluation ---
PT Evaluation-General Medical Diagnosis Admission Date November 16, 2020 at 16:22 Medical Diagnosis: Left BKA Onset Date: Nov 26, 2020 Therapy Diagnosis Therapy Diagnosis: impaired mobility, strength, endurance, balance Precautions Precautions/Isolations: Fall Prevention, Standard Precautions Referral Physician: Corry Reason for Referral: Evaluation/Treatment Medical History Pertinent Medical History: COPD Additional Medical History previous left foot amputation Social History Home: Single Level Current Living Status: Children (patient lives with his daughter) Entry Into Home: Stairs With Railing PT Steps Into Home: 4 Prior Prior Level of Function SCALE: Activities may be completed with or without assistive devices. 4-Ejbstqmnhl-eiraxax completes the activity by him/herself with no assistance from a helper. 5-Set-up or Clean-up Assistance-helper sets up or cleans up; patient completes activity. [place] assists only prior to or following the activity. 4-Supervision or Touching Assistance-helper provides verbal cues and/or touching/steadying and/or contact guard assistance as patient completes activity. Assistance may be provided throughout the activity or intermittently. 3-Partial/Moderate Assistance-helper does LESS THAN HALF the effort. [place] lifts, holds or supports trunk or limbs, but provides less than half the effort. 2-Substantial/Maximal Assistance-helper does MORE THAN HALF the effort. [place] lifts or holds trunk or limbs and provides more than half the effort. 1-Dxrvtcxhv-ckosgb does ALL the effort. Patient does none of the effort to complete the activity. Or, the assistance of 2 or more helpers is required for the patient to complete the activity. If activity was not attempted, code reason: 7-Patient Refused. 9-Not Applicable-not attempted and the patient did not perform the activity before the current illness, exacerbation or injury. 10-Not Attempted due to Environmental Limitations-(lack of equipment, weather restraints, etc.). 88-Not Attempted due to Medical Conditions or Safety Concerns. Bed Mobility: 6 Transfers (B,C,W/C): 6 Gait: 6 Stairs: 6 Indoor Mobility (Ambulation): Independent Stairs: Independent Prior Devices Use: Walker PT Evaluation-Current Subjective Patient in bed pre tx, agrees to PT, has unrated pain in left leg. Pt/Family Goals to be independent at home Objective Patient Orientation: Person, Place, Situation Attachments: Gomez Catheter ROM/Strength Strength Lower Extremities RLE (hip flexion 3+/5, knee flexion 4/5, knee extension 4/5, dorsiflexion 4+/5) Sensory Vision: Functional Hearing: Functional Sensation Right Lower Extremit: Intact Sensation Left Lower Extremity: Intact Transfers Roll Left to Right (QC): 6 Lying to Sitting/Side of Bed(Q: 4 Sit to Stand (QC): 3 Chair/Hrq-uo-Lutzo Xfer(QC): 4 Patient was able to sit on the side of the bed without assist but needed min assist to stand, CGA for stand pivot transfer to recliner. Patient needs a lot of cues for safety and positioning Balance Sitting Static: Normal Sitting Dynamic: Normal Standing Static: Fair Standing Dynamic: Fair Treatment seated LLE exercises (supine exercises performed with chair reclined), QS, GS, SLR Assessment/Needs Patient in recliner post tx with nurse call, phone, tray, chair recliner, instructed to call nurse if he needs to get up or get back to bed. Patient needs min assist to stand and initially tries to transfer in an unsafe way, needed a lot of cues for safety and positioning. Rehab Potential: Fair PT Jail Goals Jail Goals PT Jail Goals Time Frame: Dec 04, 2020 Roll Left & Right (QC): 6 Sit to Lying (QC): 6 Lying-Sitting on Side/Bed(QC): 6 Sit to Stand (QC): 5 Chair/Abs-ma-Wktia Xfer(QC): 5 Walk 10 feet (QC): 4 PT Plan Problem List Problem List: Activity Tolerance, Functional Strength, Safety, Balance, Gait, Transfer, Bed Mobility, ROM Treatment/Plan Treatment Plan: Continue Plan of Care Treatment Plan: Bed Mobility, Education, Functional Activity Jessi, Functional Strength, Gait, Safety, Therapeutic Exercise, Transfers Treatment Duration: Dec 04, 2020 Frequency: 6 times per week Estimated Hrs Per Day: .25 hour per day Patient and/or Family Agrees t: Yes Safety Risks/Education Patient Education: Transfer Techniques, Correct Positioning, Safety Issues Teaching Recipient: Patient Teaching Methods: Demonstration, Discussion Response to Teaching: Reinforcement Needed Discharge Recommendations Plan Patient will perform bed mobility and transfer training, balance and endurance training, functional strengthening, stair training, gait training, and e ducation, to improve functional mobility and independence at home. Therapy Discharge Recommendati: Scheduled Assistance, Home & Family, Post Acute PT Time/GCodes Time In: 1338 Time Out: 1358 Total Billed Treatment Time: 20 Total Billed Treatment 1 visit TOVA Tim' ITALO ESPINAL PT Nov 27, 2020 14:31
--- NOTE | 2020-11-27 15:42 | Anesthesia-General Post-Op ---
General Patient Condition Mental Status/LOC: Same as Preop Cardiovascular: Satisfactory Nausea/Vomiting: Absent Respiratory: Satisfactory Pain: Controlled Complications: Absent Post Op Complications Complications None Follow Up Care/Instructions Patient Instructions None needed. Anesthesia/Patient Condition Patient Condition Patient is doing well, C/O significant LE pain on the posterior aspect which the femoral nerve block would not have covered. He has stable vital signs, no apparent adverse anesthesia problems. UMU MOON DO Nov 27, 2020 15:42
[2020-11-28] MEDS: HYDROcodone/APAP 7.5 MG/325 MG (LORTAB, LORCET PLUS) TABLET PO PRN ×2 (02:04→06:43)
[2020-11-28] MEDS: inSUlin ASPART (NovoLOG) 1 UNIT/0.01 ML (CHARGE PER UNIT) SC SCH ×2 (06:42→06:43)
[2020-11-28] MEDS: NYSTATIN ORAL SUSP 5 ML UDC PO SCH (06:43)
--- NOTE | 2020-11-28 08:39 | Cardiology Progress Note ---
Subjective Date Seen by Provider: Nov 28, 2020 Time Seen by Provider: 08:38 Subjective/Events-last exam Patient was seen at bedside, laying down comfortably, still an active pain at the surgical site Review of Systems General: No Chills, No Night Sweats; Fatigue; No Malaise, No Appetite, No Other HEENT: No Head Aches, No Visual Changes, No Eye Pain, No Ear Pain, No Dysphasia, No Sinus Congestion, No Post Nasal Drip, No Sore Throat, No Other Pulmonary: No Dyspnea, No Cough, No Pleuritic Chest Pain, No Other Cardiovascular: No: Chest Pain, Palpitations, Orthopnea, Paroxysmal Noc. Dyspnea, Edema, Lt Headedness, Other Objective-Cardiology Exam Last Set of Vital Signs Vital Signs 11/23/20 11/26/20 11/28/20 08:00 14:35 08:23 Temp 36.6 Pulse 91 Resp 18 B/P (MAP) 128/78 (95) Pulse Ox 98 O2 Delivery Room Air O2 Flow Rate 2 FiO2 100 Capillary Refill : Less Than 3 SecondsLess Than 3 Seconds I&O Intake and Output 11/28/20 00:00 Intake Total 2420 ml Output Total 3550 ml Balance -1130 ml Intake Oral 2420 ml Output Urine Total 3550 ml General: Alert, Oriented X3, Cooperative, Mild Distress HEENT: Atraumatic, PERRLA Neck: Supple, No JVD Lungs: Normal Air Movement, Other (Bilateral rhonchi) Heart: Regular Rate, Normal S1, Normal S2 Abdomen: Normal Bowel Sounds Extremities: No Clubbing, Other (Mild edema, BKA) Skin: No Rashes Neuro: Normal Speech Psych/Mental Status: Mood NL Results Lab Laboratory Tests Test 11/27/20 11:10 11/27/20 16:27 11/27/20 20:56 11/28/20 05:29 Range/Units Glucometer 223 H 195 H 206 H 319 H 70-110 MG/DL A/P-Cardiology Admission Diagnosis Acute respiratory failure Pneumonia Sepsis Sinus bradycardia Assessment/Plan Status post acute respiratory failure secondary to drug overdose, better today, has been moved to the fourth floor and recovering slowly. Pneumonia, receiving antibiotic, slowly improving. Sinus bradycardia, Heart rate is back to normal. Continue to monitor Osteomyelitis with hx of Left foot amputation, underwent L BKA yesterday, dressing is C/D/I, having pain at the surgical site Echocardiogram was done on 11/17/2020 showing normal LV size, EF 55 to 65% Methadone and methamphetamine overdose. MJ TYLER MD Nov 28, 2020 8:39 am
[2020-11-28] MEDS: PANTOPRAZOLE 40 MG (PROTONIX) TAB PO SCH (09:28)
[2020-11-28] MEDS: meTOprolol TARTRATE 25 MG (LOPRESSOR) TABLET PO SCH (09:28)
--- NOTE | 2020-11-28 09:29 | Discharge Summary ---
Diagnosis/Chief Complaint Date of Admission November 16, 2020 at 16:22 Date of Discharge Discharge Date: Nov 28, 2020 Admission Diagnosis Acute Respiratory Failure Primary Care Larry Mejia DO Discharge Diagnosis (1) Acute osteomyelitis of left tibia Status: Acute (2) Septic shock Status: Resolved (3) Left lower lobe pneumonia Status: Acute (4) Amputation stump infection Status: Acute (5) Drug overdose, multiple drugs Status: Acute (6) T2DM (type 2 diabetes mellitus) Status: Acute Discharge Summary Procedures/Consulations Dr Carroll- Surgery Dr Russo- Cardiology Discharge Physical Exam Allergies: Coded Allergies: No Known Drug Allergies (Unverified , 05/02/11) Vitals & I&Os Vital Signs Date Time Temp Pulse Resp B/P (MAP) Pulse Ox O2 Delivery O2 Flow Rate FiO2 11/28/20 11:32 36.6 91 18 128/78 98 Room Air 2.00 100 General Appearance: No Apparent Distress, Chronically ill, Thin Cardiovascular: Regular Rate, Rhythm, No Murmur Neurologic/Psychiatric: Alert, Oriented x3 Hospital Course Pt was admitted in respiratory failure and septic shock from osteomyelitis and methadone overdose. He was treated with IV abx and did well and was able to be weaned off the vent. MRI confirmed osteomyelitis and he was bacteremic with MSSA. He was treated with IV abx and underwent BKA due to the infection. He did well and was able to be discharge to IRU for continued strengthening. Labs (last 24 hrs) Laboratory Tests 11/27/20 16:27: Glucometer 195H 11/27/20 20:56: Glucometer 206H 11/28/20 05:29: Glucometer 319H Microbiology 11/20/20 Catheter Tip Culture - Final, Complete No growth 11/18/20 Gram Stain - Final, Complete 11/18/20 Wound Culture - Final, Complete Staphylococcus aureus Strep agalactiae Group B See Comments 11/16/20 MRSA Screen - Final, Complete MRSA not isolated Patient resulted labs reviewed. Pending Labs Imaging: Reviewed Imaging Report Discussion & Recommendations Discharge Planning: >30 minutes discharge planning Discharge Home Medications: Active Scripts Active Reported Novolog Flexpen (Insulin Aspart) 300 Units/3 Ml Solution Units SC ACHS USES PER SLIDING SCALE Metformin HCl 1,000 Mg Tablet 1,000 Mg PO BID LAST FILLED 08-23-2020 #60/30 DAY SUPPLY Gabapentin 400 Mg Capsule 400 Mg PO TID LAST FILLED 08-23-2020 #90/30 DAY SUPPLY Piero Truong U-100 (Insulin Glargine,Hum.rec.anlog) 100 Unit/1 Ml Insuln.pen 12 Unit SC DAILY Glyxambi 25 mg-5 mg Tablet (Empagliflozin/Linagliptin) 1 Each Tablet 1 Ea PO DAILY Ibuprofen 600 Mg Tablet 600 Mg PO Q6H PRN Instructions to patient/family Please see electronic discharge instructions given to patient. Problem Qualifiers (1) Left lower lobe pneumonia: Pneumonia type: due to unspecified organism Qualified Codes: J18.9 - Pne umonia, unspecified organism (2) Drug overdose, multiple drugs: Encounter type: initial encounter Injury intent: undetermined intent Qualified Codes: T50.914A - Poisoning by multiple unspecified drugs, medicaments and biological substances, undetermined, initial encounter (3) T2DM (type 2 diabetes mellitus): Diabetes mellitus exterminator helper insulin use: with exterminator helper use Diabetes mellitus complication status: with skin complications Diabetes mellitus complication detail: with foot ulcer Qualified Codes: E11.621 - Type 2 diabetes mellitus with foot ulcer; L97.509 - Non-pressure chronic ulcer of other part of unspecified foot with unspecified severity; Z79.4 - jail (current) use of insulin BRITTNI CARRASCO MD Nov 28, 2020 09:29
[2020-11-28] MEDS: fentaNYL INJ 100 MCG/2 ML AMP IVP PRN (09:30)
--- NOTE | 2020-11-28 09:35 | Progress Note ---
Subjective Date Seen by a Provider: Nov 28, 2020 Time Seen by a Provider: 09:10 Subjective/Events-last exam Patient seen with Dr. Carroll. Patient reports doing ok but left leg stump is hurting and would like to try a little stronger pain medication to better help with the pain. Tolerating diet. Ambulating with assistance. Reports he is starting to feel the urge to have a BM. Objective Exam Vital Signs Date Time Temp Pulse Resp B/P (MAP) Pulse Ox O2 Delivery O2 Flow Rate FiO2 11/28/20 08:23 36.6 91 18 128/78 (95) 98 Room Air 11/28/20 03:15 36.5 89 18 134/74 (94) 98 Room Air 11/27/20 23:20 37.0 67 20 125/68 (87) 97 Room Air 11/27/20 21:10 Room Air 11/27/20 20:35 37.0 77 19 124/70 (88) 98 Room Air 11/27/20 16:56 36.7 83 19 120/73 (89) 97 Room Air 11/27/20 11:44 36.4 64 18 116/62 (80) 97 Room Air I & O 11/28/20 07:00 Intake Total 2270 ml Output Total 3200 ml Balance -930 ml Capillary Refill : Less Than 3 SecondsLess Than 3 Seconds General Appearance: No Apparent Distress, WD/WN Neck: Normal Inspection, Supple Respiratory: No Accessory Muscle Use, No Respiratory Distress Cardiovascular: Regular Rate, Rhythm, No Edema Gastrointestinal: normal bowel sounds, non tender, soft Extremity: Normal Range of Motion, Other (Left leg dressing, C/D/I) Neurologic/Psychiatric: Alert, Oriented x3 Skin: Normal Color, Warm/Dry Results Lab Laboratory Tests 11/27/20 11:10: Glucometer 223H 11/27/20 16:27: Glucometer 195H 11/27/20 20:56: Glucometer 206H 11/28/20 05:29: Glucometer 319H Microbiology 11/20/20 Catheter Tip Culture - Final, Complete No growth 11/18/20 Gram Stain - Final, Complete 11/18/20 Wound Culture - Final, Complete Staphylococcus aureus Strep agalactiae Group B See Comments 11/16/20 MRSA Screen - Final, Complete MRSA not isolated Assessment/Plan Assessment/Plan Assess & Plan/Chief Complaint A 65 year old male with osteomyelitis left tibia with open wound s/p below the knee amputation. VSS Will change dressing tomorrow. cont PT Will increase lortab. INGRIS WEAVER PINBALL MACHINE REPAIRER Nov 28, 2020 09:35
[2020-11-28 11:32] VITALS: BP 128/78
== END 2020-11-28 11:46 | DRG 853 ==
LOC: EDUNIT# 14:32 → ER 14:33 → ICU 16:22 → 4TH 11-20 09:17
PROVIDERS: ADMIT Family Medicine; ATTEND Internal Medicine
PROC: 5A1945Z Respiratory Ventilation, 24-96 Consecutive Hours (ICD-10-PCS; 2020-11-17)
PROC: 0BH17EZ Insertion of Endotracheal Airway into Trachea, Via Natural or Artificial Opening (ICD-10-PCS; 2020-11-17)
PROC: 5A09357 Assistance with Respiratory Ventilation, Less than 24 Consecutive Hours, Continuous Positive Airway Pressure (ICD-10-PCS; 2020-11-19)
PROC: 0Y6J0Z1 Detachment at Left Lower Leg, High, Open Approach (ICD-10-PCS; principal; 2020-11-26 12:23)
DX: A41.9 Sepsis, unspecified organism (principal); R65.21 Severe sepsis with septic shock; J96.01 Acute respiratory failure with hypoxia; J15.211 Pneumonia due to Methicillin susceptible Staphylococcus aureus; I21.A1 Myocardial infarction type 2; M86.8X7 Other osteomyelitis, ankle and foot; F17.210 Nicotine dependence, cigarettes, uncomplicated; T40.3X1A Poisoning by methadone, accidental (unintentional), initial encounter; T43.621A Poisoning by amphetamines, accidental (unintentional), initial encounter; R00.1 Bradycardia, unspecified; E87.6 Hypokalemia; E83.42 Hypomagnesemia; E83.39 Other disorders of phosphorus metabolism; F19.10 Other psychoactive substance abuse, uncomplicated; E11.621 Type 2 diabetes mellitus with foot ulcer; L97.509 Non-pressure chronic ulcer of other part of unspecified foot with unspecified severity; E78.5 Hyperlipidemia, unspecified; G89.29 Other chronic pain; B95.61 Methicillin susceptible Staphylococcus aureus infection as the cause of diseases classified elsewhere; B95.1 Streptococcus, group B, as the cause of diseases classified elsewhere; Z79.4 Long term (current) use of insulin; Z79.899 Other long term (current) drug therapy
CPT/HCPCS: 31500; 36415; 36600; 51702; 70450; 71045; 73600; 73720; 80048; 80053; 80061; 80202; 80306; 80320; 80329; 81000; 82805; 82947; 83605; 83735; 84100; 84145; 84478; 84484; 85007; 85025; 85027; 85379; 85610; 85652; 85730; 86141; 87040; 87070; 87077; 87081; 87186; 87205; 93005; 93041; 93306; 94002; 94003; 94660; 94799; 96361; 96365; 96367; 96375; 99291; 99292

== ENCOUNTER 2020-11-28 10:36 | Inpatient (IN) | payer MEDICARE ==
[~2020-11-28] VITALS: Ht 168 cm; Wt 54.6 kg
[2020-11-28] MEDS ORDERED: BISACODYL 10 MG SUPP (DULCOLAX) PR PRN (10:45)
[2020-11-28] MEDS ORDERED: ALPRAZolam 0.25 MG (XANAX) TAB PO PRN (10:45)
[2020-11-28] MEDS ORDERED: ACETAMINOPHEN 325 MG TABLET PO PRN (10:45)
[2020-11-28] MEDS ORDERED: LACTULOSE SYRUP 10GM/15ML (ENULOSE) 30ML UDC PO PRN (10:45)
[2020-11-28] MEDS ORDERED: CALCIUM CARBONATE 500 MG (TUMS) TAB.CHEW PO PRN (10:45)
[2020-11-28] MEDS ORDERED: guaiFENesin/CODEINE (ROBITUSSIN AC) 10ML UDC PO PRN (10:45)
[2020-11-28] MEDS ORDERED: FLEET ENEMA ADULT 1 EA BTL PR PRN (10:45)
[2020-11-28] MEDS ORDERED: ONDANSETRON 4 MG (ZOFRAN) ORAL DISSOLVE TAB PO PRN (10:45)
[2020-11-28] MEDS ORDERED: MELATONIN 3 MG TABLET PO PRN (10:45)
[2020-11-28] MEDS ORDERED: diphenhydrAMINE 25 MG TAB (BENADRYL) PO PRN (10:45)
[2020-11-28] MEDS ORDERED: DOCUSATE SODIUM 100 MG (COLACE) CAP PO PRN (10:45)
[2020-11-28 11:46] VITALS: BP 126/60
--- NOTE | 2020-11-28 12:33 | PM&R Post Admission Assessment ---
PM&R Date of Visit: Nov 28, 2020 Time of Visit: 12:45 History of Present Illness Chief complaint: Left BKA History present illness: This is a 65-year-old white male who is a known diabetic who presented to inpatient rehab in need of recovery for left-sided below the knee amputation. [facility]: Pt was admitted in respiratory failure and septic shock from osteomyelitis and methadone overdose. He was treated with IV abx and did well and was able to be weaned off the vent. MRI confirmed osteomyelitis and he was bacteremic with MSSA. He was treated with IV abx and underwent BKA due to the infection. He did well and was able to be discharge to IRU for continued strengthening. Patient is now doing very well having minimal pain and bowels are moving. He still has a catheter which will be discontinued and will make sure he can void. The goal will be to regain enough function in ADLs and ambulation transfers in order to go home and live independently. His primary care provider is Dr. Mejia in [place]. 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 PM&R Allergy/Meds/Data Review Allergies Coded Allergies: No Known Drug Allergies (Unverified , 05/02/11) Home Medications Scheduled Empagliflozin/Linagliptin (Glyxambi 25 mg-5 mg Tablet), 1 EA PO DAILY, (Reported) Gabapentin (Gabapentin), 400 MG PO TID, (Reported) Insulin Aspart (Novolog Flexpen), UNITS SC ACHS, (Reported) Insulin Glargine,Hum.rec.anlog (Basaglar Kwikpen U-100), 12 UNIT SC DAILY, (Reported) Metformin HCl (Metformin HCl), 1,000 MG PO BID, (Reported) Scheduled PRN Ibuprofen (Ibuprofen), 600 MG PO Q6H PRN for PAIN-MILD (1-4), (Reported) Current Medications Current Medications Reviewed Review of Systems Constitutional: see HPI, malaise, weakness Musculoskeletal: joint pain, muscle cramps, muscle weakness Physical Exam Physical Exam Vital Signs Vital Signs - First Documented 11/28/20 11:46 Temp 36.8 Pulse 78 Resp 20 B/P (MAP) 126/60 (82) Pulse Ox 92 O2 Delivery Room Air Capillary Refill : Height, Weight, BMI Height: '" Weight: lbs. oz. kg; 576.13 BMI Method:Estimated General Appearance: No Apparent Distress, WD/WN, Chronically ill, Thin Eyes: Bilateral Eye Normal Inspection, Bilateral Eye PERRL HEENT: PERRL/EOMI, Normal ENT Inspection, Pharynx Normal Neck: Full Range of Motion, Normal Inspection, Non Tender, Supple, Carotid Bruit Respiratory: Chest Non Tender, Lungs Clear, Normal Breath Sounds, No Accessory Muscle Use, No Respiratory Distress Cardiovascular: Regular Rate, Rhythm, No Edema, No Gallop, No JVD, No Murmur, Normal Peripheral Pulses Gastrointestinal: Normal Bowel Sounds, No Organomegaly, No Pulsatile Mass, Non Tender, Soft Back: Normal Inspection, No CVA Tenderness, No Vertebral Tenderness Extremity: Normal Capillary Refill, Normal Inspection, Normal Range of Motion, Non Tender, No Calf Tenderness, No Pedal Edema, Other (Left BKA) Neurologic/Psychiatric: Alert, Oriented x3, No Motor/Sensory Deficits, Normal Mood/Affect, 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 II-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 Norm as Tested Skin: Normal Color, Warm/Dry Lymphatic: No Adenopathy PM&R Medical Assessment & Plan REHAB/MEDICAL ASSESSMENT AND PLAN: REHAB IMPAIRMENT GROUP: Left BKA ETIOLOGIC DIAGNOSIS: Left BKA The comorbidities that impact the patients function and/or functional outcome by: New left below the knee amputation, chronic pain, diabetes REHAB PLAN: The patient is being admitted to our comprehensive inpatient rehabilitation facility and can tolerate the intensity of service consisting of at least: 180 minutes of therapy a day, 5 out of 7 days a week Rehab treatment will consist of: PT and OT will focus on wheelchair mobility and use of assistive devices to regain independent ADLs and be able to return home to live independently The patient/family has a good understanding of our discharge process and will benefit from an interdisciplinary inpatient rehabilitation program. The patient has potential to make improvement and is in need of at least two of the following multidisciplinary therapies including but not limited to physical, occupational, speech, and prosthetics and orthotics. Additionally the patient will need services from respiratory, nutritional services, wound care, psychology, etc. (Customize this to each patient). Given the patients complex condition and risk of further medical complications, rehabilitation services cannot be safely or effectively provided at a lower level of care such as a [place] [facility] facility. BARRIERS TO DISCHARGE: New amputation ESTIMATED LOS: 14 days DISPOSITION: Home RELEVANT CHANGES SINCE PREADMISSION SCREENING: I have compared the patients medical and functional status at the time of the preadmission screening and there are: no changes PROGNOSIS: Good REHABILITATION GOALS: 1.PT and OT will focus on wheelchair mobility and use of assistive devices to regain independent ADLs and be able to return home to live independently All the above goals were reviewed with the patient and he/she is in agreement. By signing this document, I acknowledge that I have personally performed a full physical examination on this patient within 24 hours of admission to this inpatient rehabilitation facility and have determined the patient to be able to tolerate the above course of treatment at an intensive level for a reasonable pe riod of time. I will be completing a detailed individualized Plan of Care for this patient by day #4 of the patients stay based upon the Preadmission Screen, the Post-Admission Evaluation, and the therapy evaluations. Admission Dx/Comorbidities: (1) Hx of BKA ICD Codes: Z89.519 - Acquired absence of unspecified leg below knee (2) Drug overdose, multiple drugs Status: Acute ICD Codes: T50.911A - Poisoning by multiple unspecified drugs, medicaments and biological substances, accidental (unintentional), initial encounter (3) Amputation stump infection Status: Acute ICD Codes: T87.40 - Infection of amputation stump, unspecified extremity (4) T2DM (type 2 diabetes mellitus) Status: Acute ICD Codes: E11.9 - Type 2 diabetes mellitus without complications (5) Septic shock Status: Resolved ICD Codes: A41.9 - Sepsis, unspecified organism; R65.21 - Severe sepsis with septic shock (6) Acute osteomyelitis of left tibia Status: Acute ICD Codes: M86.162 - Other acute osteomyelitis, left tibia and fibula Assessment/Plan Assessment and Plan Assess & Plan/Chief Complaint Assessment: Status post left below the knee amputation Diabetes insulin requiring Chronic pain Status post septic shock Plan: Pain control Discontinue catheter Inpatient rehab protocol Monitor closely CHIP TAPIA DO Nov 28, 2020 12:33
[2020-11-28] MEDS ORDERED: ONDANSETRON 4 MG/2 ML (SDV) Z0FRAN IVP PRN (12:45)
--- NOTE | 2020-11-28 12:45 | Physical Therapy Evaluation ---
PT Evaluation-General Medical Diagnosis Admission Date Nov 28, 2020 at 10:36 Medical Diagnosis: left BKA Onset Date: Nov 26, 2020 Therapy Diagnosis Therapy Diagnosis: impaired mobility, strength, endurance, balance Referral Physician: Padmini Lemons DO Reason for Referral: Evaluation/Treatment Medical History Pertinent Medical History: COPD, DM Additional Medical History previous left foot amputation Reviewed History: Yes Social History Home: Single Level Current Living Status: Children (patient lives with his daughter) Entry Into Home: Stairs With Railing PT Steps Into Home: 4 Prior Prior Level of Function SCALE: Activities may be completed with or without assistive devices. 2-Usyalhwoip-ybfczjr completes the activity by him/herself with no assistance from a helper. 5-Set-up or Clean-up Assistance-helper sets up or cleans up; patient completes activity. [place] assists only prior to or following the activity. 4-Supervision or Touching Assistance-helper provides verbal cues and/or touching/steadying and/or contact guard assistance as patient completes activity. Assistance may be provided throughout the activity or intermittently. 3-Partial/Moderate Assistance-helper does LESS THAN HALF the effort. [place] lifts, holds or supports trunk or limbs, but provides less than half the effort. 2-Substantial/Maximal Assistance-helper does MORE THAN HALF the effort. [place] lifts or holds trunk or limbs and provides more than half the effort. 8-Hmykxjlrg-dsukbu does ALL the effort. Patient does none of the effort to complete the activity. Or, the assistance of 2 or more helpers is required for the patient to complete the activity. If activity was not attempted, code reason: 7-Patient Refused. 9-Not Applicable-not attempted and the patient did not perform the activity before the current illness, exacerbation or injury. 10-Not Attempted due to Environmental Limitations-(lack of equipment, weather restraints, etc.). 88-Not Attempted due to Medical Conditions or Safety Concerns. Bed Mobility: 6 Transfers (B,C,W/C): 6 Gait: 6 Stairs: 6 Indoor Mobility (Ambulation): Independent Stairs: Independent PT Evaluation-Current Subjective Patient in bed pre tx, agrees to PT, has 7/10 pain in left leg. Will be co- treating with OT due to poor patient mobility, strength, endurance, balance, severe pain with activity, coordinate UE and LE during activity, safety and reduce risk of falls. Pt/Family Goals to be independent at home Objective Patient Orientation: Person, Place, Situation Attachments: Gomez Catheter ROM/Strength Strength Lower Extremities RLE (hip flexion 3+/5, knee flexion 4/5, knee extension 4/5, dorsiflexion 4+/5) Sensory Vision: Functional Hearing: Functional Sensation Right Lower Extremit: Intact Sensation Left Lower Extremity: Intact Transfers Roll Left & Right (QC): 6 Sit to Lying (QC): 4 Lying to Sitting/Side of Bed(Q: 4 Sit to Stand (QC): 4 Chair/Utb-qr-Ooclv Xfer(QC): 4 Toilet Transfer (QC): 4 Car Transfer (QC): 4 Patient performs bed mobility with independence, supine <-> sit SBA, sit <-> stand and transfers CGA, car transfer CGA. Patient needs frequent cues for positioning and safety, prefers to perform transfers without the walker, standing on right leg and using arms on armrests etc. Gait Does the Patient Walk?: Yes Mode of Locomotion: Walk Anticipated Mode of Locomotion: Walk Walk 10 feet (QC): 88 Walk 50 ft with 2 Turns(QC): 88 Walk 150 ft (QC): 88 Walking 10ft/uneven surface-QC: 88 Distance: 6'x3 Gait Assistive Device: Parallel Bars Comments/Gait Description Patient can ambulate 6' in the parallel bars with CGA. Patient very fatigued after going 6', he cannot ambulate using a rolling walker yet. He is able to barely clear his foot in order to hop. Wheelchair Training Does the Pt Use a Wheelchair?: Yes Distance: 150'x3 Wheel 50 ft with 2 turns (QC): 4 Wheel 150 ft (QC): 4 Type of Wheelchair: Manual Stairs 1 Step (curb) (QC): 88 4 Steps (QC): 88 12 Steps (QC): 88 Balance Sitting Static: Normal Sitting Dynamic: Normal Standing Static: Good Standing Dynamic: Fair Picking up an Object (QC): 88 Treatment Supine LLE exercises SLR and hip abd x10, prone hip flexor stretch 5 min. PT performed bed mobility and transfer training, ambulation, WC mobility, LE ROM and strengthening, balance and positioning during standing reaching activity in parallel bars and bathing, OT performed bathing, dressing, UE reaching balance activity, UE positioning and safety during activity. Assessment/Needs Patient has impaired mobility, strength, endurance, balance. Patient needs cues for safety and positioning but can perform sit to stand and transfers with CGA. Rehab Potential: Fair PT Short Term Goals Short Term Goals Time Frame: Dec 05, 2020 Roll Left & Right: 6 Sit to lyin Lying to sitting on side of be: 6 Sit to stand: 4 Chair/nrp-in-gwpnj transfer: 4 Walk 10 feet: 4 PT Lithographic Press Operator Apprentice Goals Lithographic Press Operator Apprentice Goals PT Lithographic Press Operator Apprentice Goals Time Frame: Dec 19, 2020 Roll Left & Right (QC): 6 Sit to Lying (QC): 6 Lying-Sitting on Side/Bed(QC): 6 Sit to Stand (QC): 5 Chair/Vmi-sc-Axvjv Xfer(QC): 5 Toilet Transfer (QC): 5 Car Transfer (QC): 5 Does the Patient Walk: Yes Walk 10 feet (QC): 4 Walk 50ft with 2 Turns (QC): 4 Walk 150 ft (QC): 88 Walking 10ft on Uneven Surface: 4 1 Step (curb) (QC): 4 4 Steps (QC): 4 12 Steps (QC): 88 Picking up an Object (QC): 4 Wheel 50 feet with 2 turns (QC: 6 Wheel 150 feet: 6 PT Plan Problem List Problem List: Activity Tolerance, Functional Strength, Safety, Balance, Gait, Transfer, Bed Mobility, ROM Treatment/Plan Treatment Plan: Continue Plan of Care Treatment Plan: Bed Mobility, Education, Functional Activity Jessi, Functional Strength, Group Therapy, Gait, Safety, Therapeutic Exercise, Transfers Treatment Duration: Dec 19, 2020 Frequency: At least 5 of 7 days/Wk (IRF) Estimated Hrs Per Day: 1.5 hours per day Patient and/or Family Agrees t: Yes Safety Risks/Education Patient Education: Gait Training, Transfer Techniques, Correct Positioning, W/C Management, Safety Issues Teaching Recipient: Patient Teaching Methods: Demonstration, Discussion Response to Teaching: Reinforcement Needed Discharge Recommendations Plan Patient will perform bed mobility and transfer training, balance and endurance training, functional strengthening, stair training, gait training, and education, to improve functional mobility and independence at home. Therapy Discharge Recommendati: Scheduled Assistance, Home & Family, Post Acute PT Time/GCodes Time In: 1015 Time Out: 1155 Total Billed Treatment 1 visit EVM 15' EX 30' FA 45' PT from [id number], OT eval from [id number], co-treat from [id number] ITALO ESPINAL PT Nov 28, 2020 12:44
--- NOTE | 2020-11-28 12:57 | Occupational Therapy Eval ---
OT Evaluation-General/PLF Medical Diagnosis Admission Date Nov 28, 2020 at 10:36 Medical Diagnosis: left BKA Onset Date: Nov 26, 2020 Therapy Diagnosis Therapy Diagnosis: Weakness, Decreased ADL skills Referral Physician: Padmini Lemons DO Referral Reason: Activity Tolerance, Self Care, Evaluation/Treatment, Strengthening/ROM Medical History Pertinent Medical History: COPD, DM Additional Medical History Left foot amputation 48 years ago, drug overdose, prosthetic limb left LE, trigger finger right 5th digit. Current History Pt. admitted 11-16-20 with drug overdose. Sedated and put on ventilator support. Pt. with wound on bottom of residual limb from previous foot amputation. Left BKA performed 11-26-20. Reviewed History: Yes Social History Home: Single Level Current Living Status: Children (patient lives with his daughter) Entry Into Home: Stairs With Railing Steps Into Home: 4 ADL-Prior Level of Function SCALE: Activities may be completed with or without assistive devices. 0-Wobeinlrup-lfkeaqn completes the activity by him/herself with no assistance from a helper. 5-Set-up or Clean-up Assistance-helper sets up or cleans up; patient completes activity. [place] assists only prior to or following the activity. 4-Supervision or Touching Assistance-helper provides verbal cues and/or touching/steadying and/or contact guard assistance as patient completes activit y. Assistance may be provided throughout the activity or intermittently. 3-Partial/Moderate Assistance-helper does LESS THAN HALF the effort. [place] lifts, holds or supports trunk or limbs, but provides less than half the effort. 2-Substantial/Maximal Assistance-helper does MORE THAN HALF the effort. [place] lifts or holds trunk or limbs and provides more than half the effort. 1-Edioqaznc-udviuh does ALL the effort. Patient does none of the effort to complete the activity. Or, the assistance of 2 or more helpers is required for the patient to complete the activity. If activity was not attempted, code reason: 7-Patient Refused. 9-Not Applicable-not attempted and the patient did not perform the activity before the current illness, exacerbation or injury. 10-Not Attempted due to Environmental Limitations-(lack of equipment, weather restraints, etc.). 88-Not Attempted due to Medical Conditions or Safety Concerns. ADL PLOF Comments Pt. states that he lives with his daughter and her children. He has a walker, but did not have the UE strength to use it. He was using crutches, but not very well. He had an open sore on bottom of left LE, that turned into osteomyelitis in tibia. Prior to this, he was independent with daily skills. Self Care: Unknown Functional Cognition: Unknown DME/Equipment Comments Walker, crutches. 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 reports 9/10 in residual limb. Pt. has had pain medication. Mental Status/Objective Patient Orientation: Person, Place, Time, Situation Current Hand Dominance: Right Upper Extremity ROM WFL Upper Extremity Coordination Right- impaired slightly due to trigger finger of 5th digit. Upper Extremity Strength 4/5 bilateral UE strength. ADL-Treatment Eating (QC): 6 Oral Hygiene (QC): 7 Shower/Bathe Self (QC): 3 (Seated EOB. Assist for rear glenn area and foot.) Upper Body Dressing (QC): 5 Lower Body Dressing (QC): 3 (Mod assist and cues for pants.) On/Off Footwear (QC): 3 Toileting Hygiene (QC): 1 Other Treatments Pt. seen for co-treatment due to need of skilled assistance x 2 during f unctional transfers and ADL skills. Also assessed balance and mobility in gym area with PT assessing standing balance and mobility while OT works on reaching goals for simulation of dynamic balance tasks for ADL skills. Pt. able to stand with CGA/min assist and let go of parallel bar while reaching briefly in multiple planes. Tolerated well. Able to propel wheelchair with SBA with cues and min assist briefly to position chair as needed. Pt. up in dining area waiting on lunch at end of session. Education OT Patient Education: Correct positioning, Exercise program, Modified ADL techniques, Progress toward Goal/Update tx plan, Purpose of tx/functional activities, Reviewed precautions, Rehab process, Safety issues, Transfer techniques, W/C management Teaching Recipient: Patient Teaching Methods: Demonstration, Discussion Response to Teaching: Verbalize Understanding, Return Demonstration, Reinforcement Needed OT Short Term Goals Short Term Goals Time Frame: Dec 05, 2020 Eatin Oral hygiene: 6 Toileting hygiene: 4 Shower/bathe self: 4 Upper body dressin Lower body dressin Putting on/taking off footwear: 4 OT Senior Living Goals Senior Living Goals Time Frame: Dec 19, 2020 Eating (QC): 6 Oral Hygiene (QC): 6 Toileting Hygiene (QC): 6 Shower/Bathe Self (QC): 4 Upper Body Dressing (QC): 6 Lower Body Dressing (QC): 6 On/Off Footwear (QC): 6 Additional Goals: 1-Demonstrate ADL Tasks, 2-Verbalize Understanding, 3- ImproveStrength/Jessi 1=Demonstrate adherence to instructed precautions during ADL tasks. 2=Patient will verbalize/demonstrate understanding of assistive devices/modifications for ADL. 3=Patient will improve strength/tolerance for activity to enable patient to perform ADL's. OT Education/Plan Problem List/Assessment Assessment: Decreased Activ Tolerance, Decreased UE Strength, Dependent Transfers, Impaired Bed Mobility, Impaired Funct Balance, Impaired I ADL's, Impaired Self-Care Skills Discharge Recommendations Plan/Recommendations: Continue POC Therapy Discharge Recommendati: Post Acute OT Treatment Plan/Plan of Care Treatment,Training & Education: Yes Patient would benefit from OT for education, treatment and training to promote independence in ADL's, mobility, safety and/or upper extremity function for ADL's. Plan of Care: ADL Retraining, Functional Mobility, UE Funct Exercise/Act Treatment Duration: Dec 19, 2020 Frequency: At least 5 of 7 days/Wk (IRF) Estimated Hrs Per Day: 1.5 hours per day Agreement: Yes Rehab Potential: Good Time/GCodes Start Time: 11:00 Stop Time: 12:30 Total Time Billed (hr/min): 90 Billed Treatment Time 1824-8344- 1, EVM x 10minutes [id number] ADL x 30minutes, FA x 15minutes- Co-treat with PT [id number] FA x 20minutes, ADL x 15minutes EVELIA FOX OT Nov 28, 2020 12:57
[2020-11-28] MEDS ORDERED: inSUlin ASPART (NovoLOG) 1 UNIT/0.01 ML (CHARGE PER UNIT) SC NR (13:15)
[2020-11-28] MEDS: fentaNYL INJ 100 MCG/2 ML AMP IVP PRN ×3 (13:30→20:54)
[2020-11-28] MEDS: ENOXAPARIN 40 MG/0.4 ML (LOVENOX) SYR SC SCH (17:11)
[2020-11-28] MEDS: NYSTATIN ORAL SUSP 5 ML UDC PO SCH ×2 (17:12→23:55)
[2020-11-28] MEDS: inSUlin ASPART (NovoLOG) 1 UNIT/0.01 ML (CHARGE PER UNIT) SC SCH (17:12)
[2020-11-28] MEDS: meTOprolol TARTRATE 25 MG (LOPRESSOR) TABLET PO SCH (19:40)
[2020-11-28] MEDS: DOCUSATE SODIUM 100 MG (COLACE) CAP PO SCH (19:40)
[2020-11-28] MEDS: SENNA W/DOCUSATE (SENOKOT S) TABLET PO SCH (19:40)
[2020-11-28] MEDS: metFORMIN 500 MG (GLUCOPHAGE) TAB PO SCH (19:40)
[2020-11-28] MEDS: GABAPENTIN 400 MG (NEURONTIN) CAP PO SCH (19:40)
[2020-11-28] MEDS: polyethylene glycoL POWDER 17 GM (MIRALAX) PACK PO SCH (19:55)
[2020-11-28 20:31] VITALS: BP 118/69
[2020-11-28] MEDS ORDERED: NON-FORMULARY MEDICATION 1 EA EA (Metformin HCl 1,000 MG) PO SCH (21:00)
[2020-11-29] MEDS: NYSTATIN ORAL SUSP 5 ML UDC PO SCH ×3 (05:17→17:22)
[2020-11-29 05:31] LABS: BASOPHILS # (AUTO) 0.1 10^3/uL (0.0-0.1); BASOPHILS % (AUTO) 1 % (0-10); EOSINOPHILS # (AUTO) 0.2 10^3/uL (0.0-0.3); EOSINOPHILS % (AUTO) 2 % (0-10); HEMATOCRIT 34 % (40-54); HEMOGLOBIN 11.1 g/dL (13.3-17.7); LYMPHOCYTES # (AUTO) 1.5 10^3/uL (1.0-4.0); LYMPHOCYTES % (AUTO) 14 % (12-44); MEAN CORPUSCULAR HEMOGLOBIN 31 pg (25-34); MEAN CORPUSCULAR HGB CONC 33 g/dL (32-36); MEAN CORPUSCULAR VOLUME 93 fL (80-99); MEAN PLATELET VOLUME 9.6 fL (9.0-12.2); MONOCYTES % (AUTO) 9 % (0-12); NEUTROPHILS # (AUTO) 7.8 10^3/uL (1.8-7.8); NEUTROPHILS % (AUTO) 74 % (42-75); PLATELET COUNT 419 10^3/uL (130-400); WHITE BLOOD COUNT 10.6 10^3/uL (4.3-11.0)
[2020-11-29 05:43] LABS: ALBUMIN 3.7 GM/DL (3.2-4.5); CHLORIDE 101 MMOL/L (98-107); POTASSIUM 4.4 MMOL/L (3.6-5.0); SODIUM 136 MMOL/L (135-145)
[2020-11-29 05:44] LABS: CALCIUM 9.9 MG/DL (8.5-10.1)
[2020-11-29 05:46] LABS: TOTAL PROTEIN 7.3 GM/DL (6.4-8.2)
[2020-11-29 05:47] LABS: BILIRUBIN,TOTAL 0.5 MG/DL (0.1-1.0); CARBON DIOXIDE 23 MMOL/L (21-32)
[2020-11-29 05:49] LABS: ALKALINE PHOSPHATASE 78 U/L (40-136); CREATININE SERUM 0.94 MG/DL (0.60-1.30)
[2020-11-29 05:50] LABS: BUN/CREATININE RATIO 18
[2020-11-29 05:52] LABS: ALANINE AMINOTRANSFERASE 9 U/L (0-55)
[2020-11-29 05:53] LABS: GFR ESTIMATED > 60
[2020-11-29 05:55] LABS: GLUCOSE 404 MG/DL (70-105)
[2020-11-29] MEDS: inSUlin ASPART (NovoLOG) 1 UNIT/0.01 ML (CHARGE PER UNIT) SC SCH (05:58)
--- NOTE | 2020-11-29 06:42 | PM&R Progress Note ---
Subjective HPI/CC On Admission Date Seen by Provider: Nov 29, 2020 Time Seen by Provider: 11:30 Subjective/Events-last exam 11/29/2020: Patient settling in pretty well Very brittle diabetes noted Pain is pretty well controlled No falls Bradycardic and held metoprolol Dr. Carroll makes the dressing changes Hemoglobin A1c is pending but after rounds it came back at 10.3 Review of Systems Musculoskeletal: leg pain Objective Exam Vital Signs Vital Signs Date Time Temp Pulse Resp B/P (MAP) Pulse Ox O2 Delivery O2 Flow Rate FiO2 11/29/20 21:15 97 Room Air 11/29/20 20:00 36.7 82 16 96/52 (67) Capillary Refill : General Appearance: No Apparent Distress, WD/WN, Chronically ill, Thin HEENT: PERRL/EOMI, Normal ENT Inspection, Pharynx Normal Neck: Full Range of Motion, Normal Inspection, Non Tender, Supple, Carotid Bruit Respiratory: Chest Non Tender, Lungs Clear, Normal Breath Sounds, No Accessory Muscle Use, No Respiratory Distress Cardiovascular: Regular Rate, Rhythm, No Edema, No Gallop, No JVD, No Murmur, Normal Peripheral Pulses Gastrointestinal: Normal Bowel Sounds, No Organomegaly, No Pulsatile Mass, Non Tender, Soft Back: Normal Inspection, No CVA Tenderness, No Vertebral Tenderness Extremity: Normal Capillary Refill, Normal Inspection, Normal Range of Motion, Non Tender, No Calf Tenderness, No Pedal Edema, Other (Left BKA) Neurologic/Psychiatric: Alert, Oriented x3, No Motor/Sensory Deficits, Normal Mood/Affect, supervisor special effects II-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 FIM Transfers Therapy Code Descriptions/Definitions Functional [place] Measure: 0=Not Assessed/NA 4=Minimal Assistance 1=Total Assistance 5=Supervision or Setup 2=Maximal Assistance 6=Modified [place] 3=Moderate Assistance 7=Complete IndependenceSCALE: Activities may be completed with or without assistive devices. 1-Rqvhwlvaks-ehctsrj completes the activity by him/herself with no assistance from a helper. 5-Set-up or Clean-up Assistance-helper sets up or cleans up; patient completes activity. [place] assists only prior to or following the activity. 4-Supervision or Touching Assistance-helper provides verbal cues and/or touching/steadying and/or contact guard assistance as patient completes activity. Assistance may be provided throughout the activity or intermittently. 3-Partial/Moderate Assistance-helper does LESS THAN HALF the effort. [place] lifts, holds or supports trunk or limbs, but provides less than half the effort. 2-Substantial/Maximal Assistance-helper does MORE THAN HALF the effort. [place] lifts or holds trunk or limbs and provides more than half the effort. 1-Jmayofjoh-baxrwg does ALL the effort. Patient does none of the effort to complete the activity. Or, the assistance of 2 or more helpers is required for the patient to complete the activity. If activity was not attempted, code reason: 7-Patient Refused. 9-Not Applicable-not attempted and the patient did not perform the activity before the current illness, exacerbation or injury. 10-Not Attempted due to Environmental Limitations-(lack of equipment, weather restraints, etc.). 88-Not Attempted due to Medical Conditions or Safety Concerns. Roll Left to Right (QC): 6 Sit to Lying (QC): 4 Sit to Stand (QC): 4 Chair/Bpv-yw-Ibxsw Xfer(QC): 4 Car Transfer (QC): 4 Gait Training Does the Patient Walk?: Yes Walk 10 feet (QC): 88 Walk 50 ft with 2 Turns(QC): 88 Walk 150 ft (QC): 88 Walking 10ft/uneven surface-QC: 88 Gait Assistive Device: Parallel Bars Wheelchair Training Does the Pt Use a Wheelchair?: Yes Distance: 150'x3 Wheel 50 ft with 2 turns (QC): 4 Wheel 150 ft (QC): 4 Type of Wheelchair: Manual Stair Training 1 Step (curb) (QC): 88 4 Steps (QC): 88 12 Steps (QC): 88 Balance Picking up an Object (QC): 88 ADL-Treatment Eating (QC): 6 Oral Hygiene (QC): 7 Shower/Bathe Self (QC): 3 (Seated EOB. Assist for rear glenn area and foot.) Upper Body Dressing (QC): 5 Lower Body Dressing (QC): 3 (Mod assist and cues for pants.) On/Off Footwear (QC): 3 Toileting Hygiene (QC): 1 Assessment/Plan Assessment and Plan Assess & Plan/Chief Complaint Assessment: Status post left below the knee amputation Diabetes insulin requiring Chronic pain Status post septic shock Plan: Pain control Discontinue catheter Inpatient rehab protocol Monitor closely 11/29/2020: Brittle diabetes noted with poor control with hemoglobin A1c of over 10 Pain control Dressing changes per Dr. Carroll (1) Hx of BKA (2) Drug overdose, multiple drugs Status: Acute (3) Amputation stump infection Status: Acute (4) T2DM (type 2 diabetes mellitus) Status: Acute (5) Septic shock Status: Resolved Resolution Date/Time: 11/20/20 @ 10:53 (6) Acute osteomyelitis of left tibia Status: Acute CHIP TAPIA 4, 2021 06:42
--- NOTE | 2020-11-29 06:43 | Individualized Plan of Care ---
Individualized Plan of Care Rehab Nursing IPOC Order Admission Date Nov 28, 2020 at 10:36 Current Orders Orders Transfer - Bed/Room/Location (11/28/20 10:34) Admission Order(Inpt,Obs,Sdc) (11/28/20 10:36) Vital Signs: Per Unit Policy ( 08,16,00 (11/28/20 10:36) Sequential Compression Device .admit (11/28/20 10:36) Mergers And Acquisitions Attorney-Inpt Rehab Con (11/28/20 10:36) Rehab Nursing Orders-Ipoc (11/28/20 10:36) Physical Therapy Rehab Orders (11/28/20 10:36) Occupational Therapy Rehab Ord (11/28/20 10:36) Speech Therapy Rehab Orders (11/28/20 10:36) Cbc With Automated Diff (11/29/20 06:00) Comprehensive Metabolic Panel (11/29/20 06:00) Precautions (Aru) (11/28/20 10:36) Rehab-Intensity Of Therapy (11/28/20 10:36) Initiate Admission Nursing Pro .admission (11/28/20 10:36) Acetaminophen Tablet/Caplet (Tylenol T (11/28/20 10:45) Alprazolam Tablet (Xanax Tablet) (11/28/20 10:45) Calcium Carbonate Chew Tablet (Antacid C (11/28/20 10:45) Diphenhydramine Tablet (Benadryl Tablet) (11/28/20 10:45) Docusate Sodium Capsule (Colace Capsule) (11/28/20 21:00) Docusate Sodium Capsule (Colace Capsule) (11/28/20 10:45) Bisacodyl Suppository (Dulcolax Supposit (11/28/20 10:45) Lactulose Oral Solution (Enulose Oral So (11/28/20 10:45) Na Phos/Na Biphos Enema (Fleet Enema Chuck (11/28/20 10:45) Guaifenesin/Codeine Syrup (Robitussin Ac (11/28/20 10:45) Loperamide Tablet (Imodium Tablet) (11/28/20 10:45) Melatonin Tablet (Melatonin Tablet) (11/28/20 10:45) Polyethylene Glycol Powder Pkt (Miralax (11/28/20 21:00) Ondansetron Oral Dissolve Tab (Zofran (11/28/20 10:45) Senna S Tablet (Senokot S Tablet) (11/28/20 21:00) Code/Resuscitation (11/28/20 12:33) Cho 60g/M 1snack (16-2000 Alli) (11/28/20 Lunch) Hydrocodone/Apap 10/325 Tablet (Lortab 1 (11/28/20 12:45) Nystatin Oral Suspension (Mycostatin O (11/28/20 18:00) Pantoprazole Tablet (Protonix Tablet) (11/29/20 09:00) Ondansetron Injection (Zofran Injectio (11/28/20 12:45) Fentanyl Inj (Sublimaze Injection) (11/28/20 12:45) Insulin Aspart (Novolog) (Novolog (Charg (11/28/20 17:00) Insulin Determir (Per Unit) (Levemir (Pe (11/29/20 09:00) Metoprolol Tartrate (Ir) Tab (Lopressor (11/28/20 21:00) Consult Cardiology (11/28/20 12:33) Consult General Surgery (11/28/20 12:33) Enoxaparin Injection (Lovenox Injection) (11/28/20 17:00) Insulin Aspart (Novolog) (Novolog (Charg (11/28/20 13:15) Patient Visit (11/28/20 ) Pt Eval Moderate Complexity (11/28/20 ) Exercise Therap, Ea 15 Min (11/28/20 ) Functional Activities, Ea 15 (11/28/20 ) Pharmacy Consult/Message (11/28/20 16:23) Gabapentin Capsule/Tablet (Neurontin Cap (11/28/20 21:00) (Nf) Empagliflozin/Linagliptin (Glyxambi (11/29/20 09:00) (Nf) Metformin Hcl (11/28/20 21:00) Metformin Tablet (Glucophage Tablet) (11/28/20 18:45) Hemoglobin A1c (11/29/20 06:39) Insulin Aspart (Novolog) (Novolog (Charg (11/29/20 07:00) Insulin Determir (Per Unit) (Levemir (Pe (11/29/20 06:45) Insulin (Regular) Human (Novolin R (Per (11/29/20 06:45) Insulin Aspart (Novolog) (Novolog (Charg (11/29/20 06:44) Insulin Aspart (Novolog) (Novolog (Charg (11/29/20 12:00) Glucerna (11/29/20 11:00) Dressing Order (Intervention) DAILY (11/29/20 11:39) Nicotine Patch (Nicoderm Patch) (11/30/20 09:00) Patch Removal (Patch Removal) (11/30/20 09:00) Patient Visit (11/29/20 ) Exercise Therap, Ea 15 Min (11/29/20 ) Functional Activities, Ea 15 (11/29/20 ) Patient Visit (11/29/20 ) Therapeutic, Group (11/29/20 ) Patient Visit (11/29/20 ) Speech Sound Lang Comp (11/29/20 ) Treat. Speech/Lang/Voice (11/29/20 ) Insulin Aspart (Novolog) (Novolog (Charg (11/30/20 07:00) Rehab Nursing Orders: Ongoing Assess. of Cognitive Status, Ongoing Assess. of Function Status, Bladder Management, Bladder Scan, Bladder Training, Bowel Management, Bowel Training, Disease Management & Educaiton, DVT Prophylaxis, Fall Prevention, Fluid/Electrolyte/Nutrition Mgmt, Infection Prevention, Medication Management & Education, Management of Risks & Complications, Management of Skin Intergrity, Nutrition Management, Pain Management, Patient/Family Support, Safety Management, Wound Management Intensity of Therapy to be met Patient to be seen: Min.3h per day/5 of 7d PT IPOC Problem List: Activity Tolerance, Functional Strength, Safety, Balance, Gait, Transfer, Bed Mobility, ROM Treatment Plan: Continue Plan of Care Bed Mobility, Education, Functional Activity Jessi, Functional Strength, Group Therapy, Gait, Safety, Therapeutic Exercise, Transfers Treatment Duration: Dec 19, 2020 Frequency: At least 5 of 7 days/Wk (IRF) Estimated Hrs Per Day: 1.5 hours per day OT IPOC Problems: Decreased Activ Tolerance, Decreased UE Strength, Dependent Transfers, Impaired Bed Mobility, Impaired Funct Balance, Impaired I ADL's, Impaired Self-Care Skills OT Treatment, Training and Edu: Yes Plan of Care: ADL Retraining, Functional Mobility, UE Funct Exercise/Act Treatment Duration: Dec 19, 2020 Frequency: At least 5 of 7 days/Wk (IRF) Estimated Hrs Per Day: 1.[address] IPOC Speech Therapy Treatment Plan: Discontinue ST Treatment Duration: Nov 29, 2020 Frequency: Modified Program (IRF) Estimated Hrs Per Day: Other Mergers And Acquisitions Attorney/Case Mgmt Mergers And Acquisitions Attorney/Case Managemen: Discharge Planning Dietitian/Dry House Operator Dietitian/Dry House Operator to monitor nutritional status and make changes and/or recommendations as needed and work with speech pathology on dietary upgrades as the occur. Physician IPOC Medical Issues being managed closely and that require the 24 hour availability of a physician: Recent septic shock with ventilator dependence with current and past brittle diabetes with left below the knee amputation will require close monitoring for any decompensation Medical Issues: Bowel/Bladder Function, DVT Prophylaxis, Falls Precautions, Fluid/Electrolyte/Nutrition Balance, Infection Protection, Pain Management, Wound Care Brief Synthesis of Preadmission Screen, Post-Admission Evaluation, and Therapy Evaluations: PT and OT will focus on transfers and wheelchair mobility along with increasing ADLs with use of assistive devices in order to return home to live independently Medical Prognosis: Fair Anticipated Length of Stay: 14 days CHIP TAPIA DO Nov 29, 2020 06:43
[2020-11-29] MEDS ORDERED: inSUlin ASPART (NovoLOG) 1 UNIT/0.01 ML (CHARGE PER UNIT) ONE (06:44)
[2020-11-29] MEDS ORDERED: inSUlin (REGULAR) HUMAN 1 UNIT/0.01 ML (CHARGE PER UNIT) SC PRN (06:45)
[2020-11-29] MEDS: fentaNYL INJ 100 MCG/2 ML AMP IVP PRN ×2 (07:00→13:00)
[2020-11-29] MEDS ORDERED: inSUlin ASPART (NovoLOG) 1 UNIT/0.01 ML (CHARGE PER UNIT) SC SCH ×2 (07:00→12:00)
[2020-11-29] MEDS: SENNA W/DOCUSATE (SENOKOT S) TABLET PO SCH ×2 (07:57→21:12)
[2020-11-29] MEDS: meTOprolol TARTRATE 25 MG (LOPRESSOR) TABLET PO SCH ×2 (07:57→21:00)
[2020-11-29] MEDS: metFORMIN 500 MG (GLUCOPHAGE) TAB PO SCH ×2 (07:57→17:22)
[2020-11-29] MEDS: DOCUSATE SODIUM 100 MG (COLACE) CAP PO SCH ×2 (07:57→21:10)
[2020-11-29] MEDS: GABAPENTIN 400 MG (NEURONTIN) CAP PO SCH ×3 (07:58→21:07)
[2020-11-29] MEDS: PANTOPRAZOLE 40 MG (PROTONIX) TAB PO SCH (07:58)
[2020-11-29] MEDS: polyethylene glycoL POWDER 17 GM (MIRALAX) PACK PO SCH ×2 (07:58→21:11)
[2020-11-29 08:00] VITALS: BP 99/56
[2020-11-29] MEDS ORDERED: [UNRECOGNIZED DRUG - OTHER] PO SCH (09:00)
[2020-11-29] MEDS ORDERED: EMPAGLIFLOZIN PO SCH (09:00)
[2020-11-29] MEDS ORDERED: LINAGLIPTIN PO SCH (09:00)
--- NOTE | 2020-11-29 09:42 | ST Cognitive Linguistic Eval ---
Speech Evaluation-General Medical Diagnosis left BKA Onset Date: Nov 26, 2020 Therapy Diagnosis Therapy Diagnosis: Cognitive-communication Referral Referring Physician: Dr. Lemons Medical History Pertinent Medical History: COPD, DM Reviewed History: Yes Social History Current Living Status: Children (patient lives with his daughter) Speech PLF-Current Status Prior Level of Function Patient lived with his daughter where he was independent for most of his daily needs. Subjective Patient was pleasant and cooperative with the cognitive assessment. Language Eval: Auditory Comprehends Simple Yes/No Ques: Functional Indent/Objects Multiple [place]: Functional Ident/Pics in Multiple Calle: Functional Follows 1-Step Commands: Functional Follows Complex Directions: Functional Follows General Conversations: Functional Language Eval: Verbal Language Completes Spontaneous Greeting: Functional Produces Auto, Serial Info: Functional Imitates Simple Words/Phrases: Functional Word Finding: Functional Requests Basic Needs: Functional States Basic Personal Info: Functional Expresses Complex Ideas: Functional Objective Cognitive Domain Attention: WNL Memory: WNL Problem Solving: Functional Executive Functions: WNL Visuospatial Skills: WNL Composite Severity Rating: WNL Clock Drawing Severity Rating: WNL Objective Formal/Standardized Tests [facility] Mental Status ([facility]) Results 27/30, within normal range of function Oral Motor/Speech Production Patient has several missing teeth, however his speech is intelligible. Impression The patient is a pleasant talkative 65 y/o male who was admitted to the hospital due to amputation. Patient was given the SLUMS at bedside with a score of 27/30 obtained. The patient's score does not indicate the need for further ST services. Speech Patient Assess Expression of Ideas/Wants: Expression (4) Understanding Verbal Content: Understands (4) Brief Interview-Mental Status: Yes Repetition of Three Words: Three (3) Temporal Orientation: Year: Correct (3) Temporal Orientation: Month: Accurate within 5 days(2) Temporal Orientation: Day: Correct (1) Recall : Wear to say "Sock": Yes, no cue required (2) Recall : Color: Yes, after cueing (1) Recall : Bed: Yes, no cue required (2) Memory/Recall Ability: Current season, That he or she is in a hsp/hsp unit Speech-Plan Patient/Family Goals Patient/Family Goals: The patient plans on returning to his home where he lives with his daughter. Treatment Plan Speech Therapy Treatment Plan: Discontinue ST Treatment Duration: Nov 29, 2020 Frequency: 1 time per week Estimated Hrs Per Day: .5 hour per day Rehab Potential: Fair Barriers to Learning: Patient's medical history Pt/Family Agrees to Plan: Yes Safety Risks/Education Teaching Recipient: Patient Teaching Methods: Discussion Response to Teaching: Verbalize Understanding Education Topics Provided: Safety within his room, communication of wants/needs Time Speech Therapy Time In: 09:30 Speech Therapy Time Out: 10:00 Total Billed Time: 30 Billed Treatment Time 1, ANI YADAV BETHANIA ST Nov 29, 2020 09:42
--- NOTE | 2020-11-29 11:08 | Progress Note ---
Subjective Date Seen by a Provider: Nov 29, 2020 Time Seen by a Provider: 11:00 Subjective/Events-last exam doing well. pain controlled. ambulating with assistance and tolerating PT. Objective Exam Vital Signs Date Time Temp Pulse Resp B/P (MAP) Pulse Ox O2 Delivery O2 Flow Rate FiO2 11/29/20 09:27 Room Air 11/29/20 08:00 36.6 112 11 99/56 (70) 98 Room Air 11/28/20 20:31 36.8 79 20 118/69 (85) 98 Room Air 11/28/20 20:00 Room Air 11/28/20 11:46 36.8 78 20 126/60 (82) 92 Room Air I & O 11/29/20 07:00 Intake Total 400 ml Output Total 1000 ml Balance -600 ml Capillary Refill : General Appearance: No Apparent Distress HEENT: PERRL/EOMI Neck: Full Range of Motion Respiratory: Chest Non Tender, Normal Breath Sounds Cardiovascular: Regular Rate, Rhythm Gastrointestinal: normal bowel sounds, non tender, soft Extremity: Normal Capillary Refill Neurologic/Psychiatric: Alert, Oriented x3 Skin: Normal Color Lymphatic: No Adenopathy Results Lab Laboratory Tests 11/28/20 12:40: Glucometer 230H 11/28/20 16:28: Glucometer 199H 11/29/20 05:12: White Blood Count 10.6, Red Blood Count 3.62L, Hemoglobin 11.1L, Hematocrit 34L, Mean Corpuscular Volume 93, Mean Corpuscular Hemoglobin 31, Mean Corpuscular Hemoglobin Concent 33, Red Cell Distribution Width 13.3, Platelet Count 419H, Mean Platelet Volume 9.6, Immature Granulocyte % (Auto) 1, Neutrophils (%) (Auto) 74, Lymphocytes (%) (Auto) 14, Monocytes (%) (Auto) 9, Eosinophils (%) (Auto) 2, Basophils (%) (Auto) 1, Neutrophils # (Auto) 7.8, Lymphocytes # (Auto) 1.5, Monocytes # (Auto) 1.0, Eosinophils # (Auto) 0.2, Basophils # (Auto) 0.1, Immature Granulocyte # (Auto) 0.1, Sodium Level 136, Potassium Level 4.4, Chloride Level 101, Carbon Dioxide Level 23, Anion Gap 12, Blood Urea Nitrogen 17, Creatinine 0.94, Estimat Glomerular Filtration Rate > 60, BUN/Creatinine Ratio 18, Glucose Level 404*H, Calcium Level 9.9, Corrected Calcium 10.1, Total Bilirubin 0.5, Aspartate Amino Transf (AST/SGOT) 10, Alanine Aminotransferase (ALT/SGPT) 9, Alkaline Phosphatase 78, Total Protein 7.3, Albumin 3.7 11/29/20 06:41: Glucometer 362H 11/29/20 08:03: Glucometer 282H 11/29/20 10:55: Glucometer 127H Assessment/Plan Assessment/Plan Assess & Plan/Chief Complaint s/p left BKA. change dressing. cont PT. BLADIMIR DAVIDSON MD Nov 29, 2020 11:08
--- NOTE | 2020-11-29 11:52 | Occupational Ther Daily Note ---
OT Current Status-Daily Note Subjective Pt AxO, agrees to tx. Pt states minimal pain in L LE, pain meds already administered. Mental Status/Objective Patient Orientation: Person, Place, Situation, Normal For Age ADL-Treatment Therapy Code Descriptions/Definitions Functional [place] Measure: 0=Not Assessed/NA 4=Minimal Assistance 1=Total Assistance 5=Supervision or Setup 2=Maximal Assistance 6=Modified [place] 3=Moderate Assistance 7=Complete IndependenceSCALE: Activities may be completed with or without assistive devices. 7-Amwquazjyo-kufkpfg completes the activity by him/herself with no assistance from a helper. 5-Set-up or Clean-up Assistance-helper sets up or cleans up; patient completes activity. [place] assists only prior to or following the activity. 4-Supervision or Touching Assistance-helper provides verbal cues and/or touching/steadying and/or contact guard assistance as patient completes activity. Assistance may be provided throughout the activity or intermittently. 3-Partial/Moderate Assistance-helper does LESS THAN HALF the effort. [place] lifts, holds or supports trunk or limbs, but provides less than half the effort. 2-Substantial/Maximal Assistance-helper does MORE THAN HALF the effort. [place] lifts or holds trunk or limbs and provides more than half the effort. 2-Ezafcxqdc-dysepy does ALL the effort. Patient does none of the effort to complete the activity. Or, the assistance of 2 or more helpers is required for the patient to complete the activity. If activity was not attempted, code reason: 7-Patient Refused. 9-Not Applicable-not attempted and the patient did not perform the activity before the current illness, exacerbation or injury. 10-Not Attempted due to Environmental Limitations-(lack of equipment, weather restraints, etc.). 88-Not Attempted due to Medical Conditions or Safety Concerns. Eating (QC): 6 Oral Hygiene (QC): 7 Shower/Bathe Self (QC): 7 Upper Body Dressing (QC): 7 Lower Body Dressing (QC): 7 On/Off Footwear: 7 Toileting Hygiene (QC): 7 Toilet Transfer (QC): 7 Other Treatment Pt sit to stand with cues for hand positioning and walker use. CGA throughout to w/c. Pt utilizes w/c to push self to gym with SBA. Pt's DO expresses need for dressing change. Pt sit to stand CGA and SPT to EOB, sit to supine SBA. Pt completes 3 sets of 10 back flies with red theraband. Pt is assisted in positioning during dressing change. Pt expresses a slight increase in pain afterwards. Pt SPT to w/c placed to L side with cues. Pt pushes self around ARU with SBA. Pt requires readjustment due to pain in bottom; sit to stand with CGA while OT places cushion under bottom. Pt completes 10 min arm bike with mod resistance. Returns to room with SBA, sits in w/c to end session due to pt's desire to sit to eat. Education OT Patient Education: Correct positioning, Exercise program, Home exercise program, Modified ADL techniques, Progress toward Goal/Update tx plan, Purpose of tx/functional activities, Safety issues, Transfer techniques Teaching Recipient: Patient Teaching Methods: Demonstration, Discussion Response to Teaching: Verbalize Understanding, Return Demonstration, Reinforcement Needed OT Short Term Goals Short Term Goals Time Frame: Dec 05, 2020 Eatin Oral hygiene: 6 Toileting hygiene: 4 Shower/bathe self: 4 Upper body dressin Lower body dressin Putting on/taking off footwear: 4 OT Crisis Manager Goals Skilled Nursing Goals Time Frame: Dec 19, 2020 Eating (QC): 6 Oral Hygiene (QC): 6 Toileting Hygiene (QC): 6 Shower/Bathe Self (QC): 4 Upper Body Dressing (QC): 6 Lower Body Dressing (QC): 6 On/Off Footwear (QC): 6 Additional Goals: 1-Demonstrate ADL Tasks, 2-Verbalize Understanding, 3- ImproveStrength/Jessi 1=Demonstrate adherence to instructed precautions during ADL tasks. 2=Patient will verbalize/demonstrate understanding of assistive devices/modifications for ADL. 3=Patient will improve strength/tolerance for activity to enable patient to perform ADL's. OT Education/Plan Problem List/Assessment Assessment: Decreased Activ Tolerance, Decreased UE Strength, Dependent Transfers, Impaired Funct Balance, Impaired I ADL's, Impaired Self-Care Skills Discharge Recommendations Plan/Recommendations: Continue POC Therapy Discharge Recommendati: Home & Family, Post Acute OT Treatment Plan/Plan of Care Treatment,Training & Education: Yes Patient would benefit from OT for education, treatment and training to promote independence in ADL's, mobility, safety and/or upper extremity function for ADL's. Plan of Care: ADL Retraining, Functional Mobility, UE Funct Exercise/Act Treatment Duration: Dec 19, 2020 Frequency: At least 5 of 7 days/Wk (IRF) Estimated Hrs Per Day: 1.5 hours per day Agreement: Yes Rehab Potential: Fair Time/GCodes Start Time: 11:00 Stop Time: 12:00 Total Time Billed (hr/min): 60 Billed Treatment Time 1, FA, EX 3 (60) DELMY AKHTAR OTR Nov 29, 2020 11:52
--- NOTE | 2020-11-29 11:53 | Physical Therapy Daily Note ---
PT Daily Note-Current Subjective Patient in bed pre tx, agrees to PT, has 7/10 pain in left residual limb, nurse in room and gives him pain meds. Appearance Patient in bed post tx with nurse call, phone, tray, all needs met. Mental Status Patient Orientation: Person, Place, Situation Transfers SCALE: Activities may be completed with or without assistive devices. 5-Kqigqbhwuo-gbwpyxh completes the activity by him/herself with no assistance from a helper. 5-Set-up or Clean-up Assistance-helper sets up or cleans up; patient completes activity. [place] assists only prior to or following the activity. 4-Supervision or Touching Assistance-helper provides verbal cues and/or touching/steadying and/or contact guard assistance as patient completes activity. Assistance may be provided throughout the activity or intermittently. 3-Partial/Moderate Assistance-helper does LESS THAN HALF the effort. [place] lifts, holds or supports trunk or limbs, but provides less than half the effort. 2-Substantial/Maximal Assistance-helper does MORE THAN HALF the effort. [place] lifts or holds trunk or limbs and provides more than half the effort. 6-Eexvdnxap-gvddkx does ALL the effort. Patient does none of the effort to complete the activity. Or, the assistance of 2 or more helpers is required for the patient to complete the activity. If activity was not attempted, code reason: 7-Patient Refused. 9-Not Applicable-not attempted and the patient did not perform the activity before the current illness, exacerbation or injury. 10-Not Attempted due to Environmental Limitations-(lack of equipment, weather restraints, etc.). 88-Not Attempted due to Medical Conditions or Safety Concerns. Roll Left & Right (QC): 6 Sit to Lying (QC): 6 Lying to Sitting/Side of Bed(Q: 6 Sit to Stand (QC): 4 Chair/Amn-vh-Yakto Xfer(QC): 4 Gait Training Distance: 6'x3 Gait Persons Needed: 1 Gait Assistive Device: Parallel Bars CGA, patient is able to hop on right leg and has fair clearance, fatigues qu ickly though and 6' is about all he can do at one time Wheelchair Training Does the Pt Use a Wheelchair?: Yes Wheel 50 ft with 2 turns (QC): 6 Wheel 150 ft (QC): 6 Type of Wheelchair: Manual 300', 150' Exercises NuStep Minutes: 15 NuStep Workload: 4 (both arms and right leg used) Treatments bed mobility and transfers, ambulation, WC mobility training, functional strengthening Assessment Current Status: Fair Progress improving general mobility but patient has poor endurance and needs frequent rest breaks PT Short Term Goals Short Term Goals Time Frame: Dec 05, 2020 Roll Left & Right: 6 Sit to lyin Lying to sitting on side of be: 6 Sit to stand: 4 Chair/tqe-do-rfdrp transfer: 4 Walk 10 feet: 4 PT Detention Goals Nuclear Engineering Technician Goals PT Nuclear Engineering Technician Goals Time Frame: Dec 19, 2020 Roll Left & Right (QC): 6 Sit to Lying (QC): 6 Lying-Sitting on Side/Bed(QC): 6 Sit to Stand (QC): 5 Chair/Ppi-ps-Exvmj Xfer(QC): 5 Toilet Transfer (QC): 5 Car Transfer (QC): 5 Does the Patient Walk: Yes Walk 10 feet (QC): 4 Walk 50ft with 2 Turns (QC): 4 Walk 150 ft (QC): 88 Walking 10ft on Uneven Surface: 4 1 Step (curb) (QC): 4 4 Steps (QC): 4 12 Steps (QC): 88 Picking up an Object (QC): 4 Wheel 50 feet with 2 turns (QC: 6 Wheel 150 feet: 6 PT Plan Problem List Problem List: Activity Tolerance, Functional Strength, Safety, Balance, Gait, Transfer, Bed Mobility, ROM Treatment/Plan Treatment Plan: Continue Plan of Care Treatment Plan: Bed Mobility, Education, Functional Activity Jessi, Functional Strength, Group Therapy, Gait, Safety, Therapeutic Exercise, Transfers Treatment Duration: Dec 19, 2020 Frequency: At least 5 of 7 days/Wk (IRF) Estimated Hrs Per Day: 1.5 hours per day Patient and/or Family Agrees t: Yes Safety Risks/Education Patient Education: Gait Training, Transfer Techniques, Correct Positioning, W/C Management, Safety Issues Teaching Recipient: Patient Teaching Methods: Demonstration, Discussion Response to Teaching: Reinforcement Needed Time/GCodes Time In: 1000 Time Out: 1100 Total Billed Treatment Time: 60 Total Billed Treatment 1 visit EX 15' FA 45' ITALO ESPINAL PT Nov 29, 2020 11:52
--- NOTE | 2020-11-29 14:32 | Therapy Group Daily Note ---
Therapy Daily Group Note Patient Education Topic Other List Below (bed mobility, safe transfers) Exercises LE Seated Exercise, UE Exercise Session Ratio (pt:therapist): 6:2 Goal of Session: UE/LE Strengthing, Safety with Transfers Goal Met for this Session: Yes Pt Benefit of Group: Contributions to Others, Increased Functional Safety, Increased Functional Strength, Improved Cognition, Recognition of Peers, Socialization Other/Notes Using w/c, pt propelled to OT/PT group at [facility]. Group consisted of introductions(name, place born, first memory), socialization, B UE/LE exercises and education on safe transfers/hospital bed. Pt introduced self appropriately and actively listened to peers. Pt able to complete B UE/LE seated exercises with only verbal cues for correct technique. Pt acknowledged understanding of educational topics by giving own examples. 5 words given for memory task-dog, jesús, 6, burrito, guitar. After session, pt lying in bed with call light/phone in reach. All needs met in room. Start Time: 13:00 Stop Time: 14:00 Total Billed Treatment Time: 60 Total Billed Treatment 1-GRP VIVEK MCADAMS Nov 29, 2020 14:32
[2020-11-29] MEDS: ENOXAPARIN 40 MG/0.4 ML (LOVENOX) SYR SC SCH (17:22)
[2020-11-29 20:00] VITALS: BP 96/52
[2020-11-30] MEDS: NYSTATIN ORAL SUSP 5 ML UDC PO SCH ×4 (05:36→16:48)
[2020-11-30] MEDS: inSUlin ASPART (NovoLOG) 1 UNIT/0.01 ML (CHARGE PER UNIT) SC SCH ×4 (07:14→16:49)
[2020-11-30 07:30] VITALS: BP 97/60
--- NOTE | 2020-11-30 07:47 | PM&R Progress Note ---
Subjective HPI/CC On Admission Date Seen by Provider: Nov 30, 2020 Time Seen by Provider: 12:00 Subjective/Events-last exam 11/30/2020: Patient is a very brittle diabetic Feels like he is doing pretty well though Increase in consumption of snacks and junk food and his blood sugars are 366 Ongoing chronic pain issues 11/29/2020: Patient settling in pretty well Very brittle diabetes noted Pain is pretty well controlled No falls Bradycardic and held metoprolol Dr. Carroll makes the dressing changes Hemoglobin A1c is pending but after rounds it came back at 10.3 Review of Systems General: Fatigue Musculoskeletal: leg pain Objective Exam Vital Signs Vital Signs Date Time Temp Pulse Resp B/P (MAP) Pulse Ox O2 Delivery O2 Flow Rate FiO2 11/30/20 09:22 Room Air 11/30/20 07:30 36.2 101 20 97/60 (72) 100 Capillary Refill : General Appearance: No Apparent Distress, WD/WN, Chronically ill, Thin HEENT: PERRL/EOMI, Normal ENT Inspection, Pharynx Normal Neck: Full Range of Motion, Normal Inspection, Non Tender, Supple, Carotid Bruit Respiratory: Chest Non Tender, Lungs Clear, Normal Breath Sounds, No Accessory Muscle Use, No Respiratory Distress Cardiovascular: Regular Rate, Rhythm, No Edema, No Gallop, No JVD, No Murmur, Normal Peripheral Pulses Gastrointestinal: Normal Bowel Sounds, No Organomegaly, No Pulsatile Mass, Non Tender, Soft Back: Normal Inspection, No CVA Tenderness, No Vertebral Tenderness Extremity: Normal Capillary Refill, Normal Inspection, Normal Range of Motion, Non Tender, No Calf Tenderness, No Pedal Edema, Other (Left BKA) Neurologic/Psychiatric: Alert, Oriented x3, No Motor/Sensory Deficits, Normal Mood/Affect, traffic counter II-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 FIM Transfers Therapy Code Descriptions/Definitions Functional [place] Measure: 0=Not Assessed/NA 4=Minimal Assistance 1=Total Assistance 5=Supervision or Setup 2=Maximal Assistance 6=Modified [place] 3=Moderate Assistance 7=Complete IndependenceSCALE: Activities may be completed with or without assistive devices. 2-Emjxopkrxq-rnyaqva completes the activity by him/herself with no assistance from a helper. 5-Set-up or Clean-up Assistance-helper sets up or cleans up; patient completes activity. [place] assists only prior to or following the activity. 4-Supervision or Touching Assistance-helper provides verbal cues and/or touching/steadying and/or contact guard assistance as patient completes activity. Assistance may be provided throughout the activity or intermittently. 3-Partial/Moderate Assistance-helper does LESS THAN HALF the effort. [place] lifts, holds or supports trunk or limbs, but provides less than half the effort. 2-Substantial/Maximal Assistance-helper does MORE THAN HALF the effort. [place] lifts or holds trunk or limbs and provides more than half the effort. 5-Wgsikaacr-ogxzzy does ALL the effort. Patient does none of the effort to complete the activity. Or, the assistance of 2 or more helpers is required for the patient to complete the activity. If activity was not attempted, code reason: 7-Patient Refused. 9-Not Applicable-not attempted and the patient did not perform the activity b efore the current illness, exacerbation or injury. 10-Not Attempted due to Environmental Limitations-(lack of equipment, weather restraints, etc.). 88-Not Attempted due to Medical Conditions or Safety Concerns. Roll Left to Right (QC): 6 Sit to Lying (QC): 6 Sit to Stand (QC): 4 Chair/Zpv-ms-Vuoxm Xfer(QC): 4 Car Transfer (QC): 4 Gait Training Does the Patient Walk?: Yes Distance: 6'x3 Walk 10 feet (QC): 88 Walk 50 ft with 2 Turns(QC): 88 Walk 150 ft (QC): 88 Walking 10ft/uneven surface-QC: 88 Gait Persons Needed: 1 Gait Assistive Device: Parallel Bars Wheelchair Training Does the Pt Use a Wheelchair?: Yes Distance: 150'x3 Wheel 50 ft with 2 turns (QC): 6 Wheel 150 ft (QC): 6 Type of Wheelchair: Manual Stair Training 1 Step (curb) (QC): 88 4 Steps (QC): 88 12 Steps (QC): 88 Balance Picking up an Object (QC): 88 ADL-Treatment Eating (QC): 6 Oral Hygiene (QC): 7 Shower/Bathe Self (QC): 7 Upper Body Dressing (QC): 7 Lower Body Dressing (QC): 7 On/Off Footwear (QC): 7 Toileting Hygiene (QC): 7 Toilet Transfer (QC): 7 Assessment/Plan Assessment and Plan Assess & Plan/Chief Complaint Assessment: Status post left below the knee amputation Diabetes insulin requiring Chronic pain Status post septic shock Plan: Pain control Discontinue catheter Inpatient rehab protocol Monitor closely 11/29/2020: Brittle diabetes noted with poor control with hemoglobin A1c of over 10 Pain control Dressing changes per Dr. Carroll 11/30/2020: Continue pain management Aggressive therapy Monitor closely (1) Hx of BKA (2) Drug overdose, multiple drugs Status: Acute (3) Amputation stump infection Status: Acute (4) T2DM (type 2 diabetes mellitus) Status: Acute (5) Septic shock Status: Resolved Resolution Date/Time: 11/20/20 @ 10:53 (6) Acute osteomyelitis of left tibia Status: Acute CHIP TAPIA DO Nov 30, 2020 07:46
[2020-11-30] MEDS: DOCUSATE SODIUM 100 MG (COLACE) CAP PO SCH ×2 (08:19→21:46)
[2020-11-30] MEDS: PANTOPRAZOLE 40 MG (PROTONIX) TAB PO SCH (08:19)
[2020-11-30] MEDS: SENNA W/DOCUSATE (SENOKOT S) TABLET PO SCH ×2 (08:19→21:46)
[2020-11-30] MEDS: GABAPENTIN 400 MG (NEURONTIN) CAP PO SCH ×3 (08:19→21:43)
[2020-11-30] MEDS: metFORMIN 500 MG (GLUCOPHAGE) TAB PO SCH ×2 (08:19→16:48)
[2020-11-30] MEDS: NICOTINE 21 MG (NICODERM) PATCH TD SCH (08:21)
[2020-11-30] MEDS: meTOprolol TARTRATE 25 MG (LOPRESSOR) TABLET PO SCH (08:22)
[2020-11-30] MEDS: polyethylene glycoL POWDER 17 GM (MIRALAX) PACK PO SCH ×2 (08:23→21:49)
[2020-11-30] MEDS: NICOTINE PATCH REMOVAL TP SCH (08:24)
--- NOTE | 2020-11-30 11:28 | Physical Therapy Daily Note ---
PT Daily Note-Current Subjective Pt sleeping in bed upon arrival. Pt agrees to supine ex only. Pain Numeric Pain Scale: 10-Worst Possible Pain Location: Left Location Body Site: Knee Pain Description: Acute Comment: Per pt, Nursing had just changed bandage so pain increased Mental Status Patient Orientation: Normal For Age Transfers SCALE: Activities may be completed with or without assistive devices. 8-Xqjfxkbjwu-guiovbf completes the activity by him/herself with no assistance from a helper. 5-Set-up or Clean-up Assistance-helper sets up or cleans up; patient completes activity. [place] assists only prior to or following the activity. 4-Supervision or Touching Assistance-helper provides verbal cues and/or touching/steadying and/or contact guard assistance as patient completes activity. Assistance may be provided throughout the activity or intermittently. 3-Partial/Moderate Assistance-helper does LESS THAN HALF the effort. [place] lifts, holds or supports trunk or limbs, but provides less than half the effort. 2-Substantial/Maximal Assistance-helper does MORE THAN HALF the effort. [place] lifts or holds trunk or limbs and provides more than half the effort. 3-Prkhcvqas-wigrwm does ALL the effort. Patient does none of the effort to complete the activity. Or, the assistance of 2 or more helpers is required for the patient to complete the activity. If activity was not attempted, code reason: 7-Patient Refused. 9-Not Applicable-not attempted and the patient did not perform the activity before the current illness, exacerbation or injury. 10-Not Attempted due to Environmental Limitations-(lack of equipment, weather restraints, etc.). 88-Not Attempted due to Medical Conditions or Safety Concerns. Exercises Supine Ex: Quad Set, Glut sets, Short Arc Quads, Straight leg raise, Hip abd/add Supine Reps: 20 Treatments Supine ex completed. Pt remains supine in bed w/ call light, bedside table and all needs met at end of tx. Assessment Current Status: Fair Progress Pt states he is experiencing phantom pain at random times throughout the day. Pt motivated. PT Short Term Goals Short Term Goals Time Frame: Dec 05, 2020 Roll Left & Right: 6 Sit to lyin Lying to sitting on side of be: 6 Sit to stand: 4 Chair/zez-nt-ropvx transfer: 4 Walk 10 feet: 4 PT Cloth Colors Examiner Goals Senior Living Goals PT Senior Living Goals Time Frame: Dec 19, 2020 Roll Left & Right (QC): 6 Sit to Lying (QC): 6 Lying-Sitting on Side/Bed(QC): 6 Sit to Stand (QC): 5 Chair/Jvu-ht-Cdtua Xfer(QC): 5 Toilet Transfer (QC): 5 Car Transfer (QC): 5 Does the Patient Walk: Yes Walk 10 feet (QC): 4 Walk 50ft with 2 Turns (QC): 4 Walk 150 ft (QC): 88 Walking 10ft on Uneven Surface: 4 1 Step (curb) (QC): 4 4 Steps (QC): 4 12 Steps (QC): 88 Picking up an Object (QC): 4 Wheel 50 feet with 2 turns (QC: 6 Wheel 150 feet: 6 PT Plan Problem List Problem List: Activity Tolerance, Functional Strength, Safety, Balance, Gait, Transfer, Bed Mobility, ROM Treatment/Plan Treatment Plan: Continue Plan of Care Treatment Plan: Bed Mobility, Education, Functional Activity Jessi, Functional Strength, Group Therapy, Gait, Safety, Therapeutic Exercise, Transfers Treatment Duration: Dec 19, 2020 Frequency: At least 5 of 7 days/Wk (IRF) Estimated Hrs Per Day: 1.5 hours per day Patient and/or Family Agrees t: Yes Safety Risks/Education Patient Education: Correct Positioning, Safety Issues Teaching Recipient: Patient Teaching Methods: Discussion Response to Teaching: Verbalize Understanding Time/GCodes Time In: 0955 Time Out: 1010 Total Billed Treatment Time: 15 Total Billed Treatment 1, Ex (15m) ALFRED LOYA BILINGUAL HR GENERALIST Nov 30, 2020 11:28
--- NOTE | 2020-11-30 11:48 | Progress Note ---
Subjective Date Seen by a Provider: Nov 30, 2020 Time Seen by a Provider: 11:00 Subjective/Events-last exam doing well. less stump pain. tolerating PT well. Objective Exam Vital Signs Date Time Temp Pulse Resp B/P (MAP) Pulse Ox O2 Delivery O2 Flow Rate FiO2 11/30/20 09:22 Room Air 11/30/20 07:30 36.2 101 20 97/60 (72) 100 Room Air 11/29/20 21:15 97 Room Air 11/29/20 20:00 36.7 82 16 96/52 (67) 97 Room Air Capillary Refill : General Appearance: No Apparent Distress HEENT: PERRL/EOMI Neck: Full Range of Motion Respiratory: Chest Non Tender, Lungs Clear Cardiovascular: Regular Rate, Rhythm Gastrointestinal: normal bowel sounds, non tender, soft Extremity: Normal Capillary Refill, Other (left stump dressed/dry) Neurologic/Psychiatric: Alert, Oriented x3 Skin: Normal Color Lymphatic: No Adenopathy Results Lab Laboratory Tests 11/29/20 15:43: Glucometer 77 11/29/20 20:24: Glucometer 239H 11/30/20 05:36: Glucometer 379H 11/30/20 10:50: Glucometer 60*L 11/30/20 11:45: Assessment/Plan Assessment/Plan Assess & Plan/Chief Complaint s/p left BKA. change dressing daily. cont PT. BLADIMIR DAVIDSON MD Nov 30, 2020 11:48
--- NOTE | 2020-11-30 14:52 | Progress Note - Cardiology ---
Cardiology SOAP Progress Note Subjective: Gen malaise and weakness present No cp or palp or syncope or shortness of breath No n/v/d No focal weakness Objective: I&O/Vital Signs 11/30/20 11/30/20 07:30 09:22 Temp 36.2 Pulse 101 Resp 20 B/P (MAP) 97/60 (72) Pulse Ox 100 O2 Delivery Room Air Room Air Constitutional: AAO x 3, well-developed, other (thin-appearing) Respiratory: No accessory muscle use; other (good air entry, diminished at the bases) Cardiovascular: regular rate-rhythm, S1 and S2, systolic murmur (soft MARQUIS at card base) Gastrointestional: No tender; soft; No guarding, No rebound; audible bowel sounds Extremities: other (L BKA); No clubbing, No cyanosis Neurologic/Psychiatric: oriented x 3, other (moves all limbs equally) Skin: normal color, warm/dry; No rash on exposed areas, No ulcerations on exposed areas Results/Procedures: Labs Laboratory Tests 11/29/20 15:43: Glucometer 77 11/29/20 20:24: Glucometer 239H 11/30/20 05:36: Glucometer 379H 11/30/20 10:50: Glucometer 60*L 11/30/20 11:45: Glucometer 93 A/P: Assessment: Ac acute respiratory failure in late October 2020 secondary to drug overdose, now resolved, currently undergoing inpatient rehab H/o intermittent sinus bradycardia, none currently Low-normal BP (SBP in the 90s) L BKA (due to osteomyelitis) on 11/26/20 Echocardiogram was done on 11/17/2020: normal LV size, EF 55 to 65% H/o methadone and methamphetamine overdose. Plan: * D/c metoprolol due to low-normal BP * Monitor labs JEFFERSON APARICIO MD FACP FAC CCDS Nov 30, 2020 14:52
[2020-11-30] MEDS: ENOXAPARIN 40 MG/0.4 ML (LOVENOX) SYR SC SCH (16:48)
[2020-11-30 20:00] VITALS: BP 117/75
[2020-12-01] MEDS: NYSTATIN ORAL SUSP 5 ML UDC PO SCH ×4 (05:46→18:05)
[2020-12-01 07:30] VITALS: BP 116/67
--- NOTE | 2020-12-01 08:20 | PM&R Progress Note ---
Subjective HPI/CC On Admission Date Seen by Provider: Dec 01, 2020 Time Seen by Provider: 12:30 Subjective/Events-last exam 12/01/2020: Patient doing pretty well No significant concerns Changing fentanyl to only given before dressing changes Oxycodone ordered for increased pain if it occurs 11/30/2020: Patient is a very brittle diabetic Feels like he is doing pretty well though Increase in consumption of snacks and junk food and his blood sugars are 366 Ongoing chronic pain issues 11/29/2020: Patient settling in pretty well Very brittle diabetes noted Pain is pretty well controlled No falls Bradycardic and held metoprolol Dr. Carroll makes the dressing changes Hemoglobin A1c is pending but after rounds it came back at 10.3 Review of Systems General: Fatigue, Malaise Musculoskeletal: back pain Objective Exam Vital Signs Vital Signs Date Time Temp Pulse Resp B/P (MAP) Pulse Ox O2 Delivery O2 Flow Rate FiO2 12/01/20 09:00 Room Air 12/01/20 07:30 36.8 92 20 116/67 (83) 99 Capillary Refill : General Appearance: No Apparent Distress, WD/WN, Chronically ill, Thin HEENT: PERRL/EOMI, Normal ENT Inspection, Pharynx Normal Neck: Full Range of Motion, Normal Inspection, Non Tender, Supple, Carotid Bruit Respiratory: Chest Non Tender, Lungs Clear, Normal Breath Sounds, No Accessory Muscle Use, No Respiratory Distress Cardiovascular: Regular Rate, Rhythm, No Edema, No Gallop, No JVD, No Murmur, Normal Peripheral Pulses Gastrointestinal: Normal Bowel Sounds, No Organomegaly, No Pulsatile Mass, Non Tender, Soft Back: Normal Inspection, No CVA Tenderness, No Vertebral Tenderness Extremity: Normal Capillary Refill, Normal Inspection, Normal Range of Motion, Non Tender, No Calf Tenderness, No Pedal Edema, Other (Left BKA) Neurologic/Psychiatric: Alert, Oriented x3, No Motor/Sensory Deficits, Normal Mood/Affect, rn house supervisor II-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 FIM Transfers Therapy Code Descriptions/Definitions Functional [place] Measure: 0=Not Assessed/NA 4=Minimal Assistance 1=Total Assistance 5=Supervision or Setup 2=Maximal Assistance 6=Modified [place] 3=Moderate Assistance 7=Complete IndependenceSCALE: Activities may be completed with or without assistive devices. 0-Jarnwktqzd-wekpfuw completes the activity by him/herself with no assistance from a helper. 5-Set-up or Clean-up Assistance-helper sets up or cleans up; patient completes activity. [place] assists only prior to or following the activity. 4-Supervision or Touching Assistance-helper provides verbal cues and/or touching/steadying and/or contact guard assistance as patient completes activity. Assistance may be provided throughout the activity or intermittently. 3-Partial/Moderate Assistance-helper does LESS THAN HALF the effort. [place] lifts, holds or supports trunk or limbs, but provides less than half the effort. 2-Substantial/Maximal Assistance-helper does MORE THAN HALF the effort. [place] lifts or holds trunk or limbs and provides more than half the effort. 8-Eqcffbjwc-quytmi does ALL the effort. Patient does none of the effort to complete the activity. Or, the assistance of 2 or more helpers is required for the patient to complete the activity. If activity was not attempted, code reason: 7-Patient Refused. 9-Not Applicable-not attempted and the patient did not perform the activity before the current illness, exacerbation or injury. 10-Not Attempted due to Environmental Limitations-(lack of equipment, weather restraints, etc.). 88-Not Attempted due to Medical Conditions or Safety Concerns. Roll Left to Right (QC): 6 Sit to Lying (QC): 6 Sit to Stand (QC): 4 Chair/Pcr-ty-Cdvxc Xfer(QC): 4 Car Transfer (QC): 4 Gait Training Does the Patient Walk?: Yes Distance: 6'x3 Walk 10 feet (QC): 88 Walk 50 ft with 2 Turns(QC): 88 Walk 150 ft (QC): 88 Walking 10ft/uneven surface-QC: 88 Gait Persons Needed: 1 Gait Assistive Device: Parallel Bars Wheelchair Training Does the Pt Use a Wheelchair?: Yes Distance: 150'x3 Wheel 50 ft with 2 turns (QC): 6 Wheel 150 ft (QC): 6 Type of Wheelchair: Manual Stair Training 1 Step (curb) (QC): 88 4 Steps (QC): 88 12 Steps (QC): 88 Balance Picking up an Object (QC): 88 ADL-Treatment Eating (QC): 6 Oral Hygiene (QC): 7 Shower/Bathe Self (QC): 7 Upper Body Dressing (QC): 7 Lower Body Dressing (QC): 7 On/Off Footwear (QC): 7 Toileting Hygiene (QC): 7 Toilet Transfer (QC): 7 Assessment/Plan Assessment and Plan Assess & Plan/Chief Complaint Assessment: Status post left below the knee amputation Diabetes insulin requiring Chronic pain Status post septic shock Plan: Pain control Discontinue catheter Inpatient rehab protocol Monitor closely 11/29/2020: Brittle diabetes noted with poor control with hemoglobin A1c of over 10 Pain control Dressing changes per Dr. Carroll 11/30/2020: Continue pain management Aggressive therapy Monitor closely 12/01/2020: Monitor blood sugar closely Brittle diabetes noted Pain control (1) Hx of BKA (2) Drug overdose, multiple drugs Status: Acute (3) Amputation stump infection Status: Acute (4) T2DM (type 2 diabetes mellitus) Status: Acute (5) Septic shock Status: Resolved Resolution Date/Time: 11/20/20 @ 10:53 (6) Acute osteomyelitis of left tibia Status: Acute CHIP TAPIA DO Dec 01, 2020 08:20
[2020-12-01] MEDS: polyethylene glycoL POWDER 17 GM (MIRALAX) PACK PO SCH ×2 (08:32→21:02)
[2020-12-01] MEDS: NICOTINE 21 MG (NICODERM) PATCH TD SCH (08:32)
[2020-12-01] MEDS: PANTOPRAZOLE 40 MG (PROTONIX) TAB PO SCH (08:32)
[2020-12-01] MEDS: SENNA W/DOCUSATE (SENOKOT S) TABLET PO SCH ×2 (08:32→20:56)
[2020-12-01] MEDS: GABAPENTIN 400 MG (NEURONTIN) CAP PO SCH ×3 (08:32→20:57)
[2020-12-01] MEDS: metFORMIN 500 MG (GLUCOPHAGE) TAB PO SCH ×2 (08:32→18:05)
[2020-12-01] MEDS: DOCUSATE SODIUM 100 MG (COLACE) CAP PO SCH ×2 (08:32→20:57)
[2020-12-01] MEDS: NICOTINE PATCH REMOVAL TP SCH (08:33)
--- NOTE | 2020-12-01 09:48 | Progress Note ---
Subjective Date Seen by a Provider: Dec 01, 2020 Time Seen by a Provider: 09:40 Subjective/Events-last exam Continues to do well with PT. Pt reports "increasing phantom pain". No other changes. Objective Exam Last Set of Vital Signs Vital Signs Date Time Temp Pulse Resp B/P (MAP) Pulse Ox O2 Delivery O2 Flow Rate FiO2 12/01/20 07:30 36.8 92 20 116/67 (83) 99 Room Air Capillary Refill : Results Lab Laboratory Tests 11/30/20 10:50: Glucometer 60*L 11/30/20 11:45: Glucometer 93 11/30/20 15:25: Glucometer 141H 11/30/20 20:05: Glucometer 124H 12/01/20 05:43: Glucometer 176H SUSAN CRANDALL Dec 01, 2020 09:48
[2020-12-01] MEDS: inSUlin ASPART (NovoLOG) 1 UNIT/0.01 ML (CHARGE PER UNIT) SC SCH ×3 (10:16→18:05)
[2020-12-01] MEDS: ENOXAPARIN 40 MG/0.4 ML (LOVENOX) SYR SC SCH (16:05)
[2020-12-01] MEDS: fentaNYL INJ 100 MCG/2 ML AMP IVP PRN (16:05)
--- NOTE | 2020-12-01 18:22 | Progress Note - Cardiology ---
Cardiology SOAP Progress Note Subjective: No cp or palp or syncope or shortness of breath No n/v/d Some gen malaise present Objective: I&O/Vital Signs 12/01/20 12/01/20 07:30 09:00 Temp 36.8 Pulse 92 Resp 20 B/P (MAP) 116/67 (83) Pulse Ox 99 O2 Delivery Room Air Room Air Constitutional: AAO x 3, well-developed, other (thin-appearing) Respiratory: No accessory muscle use; other (good air entry, diminished at the bases) Cardiovascular: regular rate-rhythm, S1 and S2, systolic murmur (soft MARQUIS at card base) Gastrointestional: No tender; soft; No guarding, No rebound; audible bowel sounds Extremities: other (L BKA); No clubbing, No cyanosis Neurologic/Psychiatric: oriented x 3, other (moves all limbs equally) Skin: normal color, warm/dry; No rash on exposed areas, No ulcerations on exposed areas Results/Procedures: Labs Laboratory Tests 11/30/20 20:05: Glucometer 124H 12/01/20 05:43: Glucometer 176H 12/01/20 10:53: Glucometer 299H 12/01/20 15:39: Glucometer 128H A/P: Assessment: Ac acute respiratory failure in late October 2020 secondary to drug overdose, now resolved, currently undergoing inpatient rehab H/o intermittent sinus bradycardia, none currently Low-normal BP (SBP in the 90s) L BKA (due to osteomyelitis) on 11/26/20 Echocardiogram was done on 11/17/2020: normal LV size, EF 55 to 65% H/o methadone and methamphetamine overdose. Plan: * BP better after d/c metoprolol * Monitor labs JEFFERSON APARICIO MD FACP FAC CCDS Dec 01, 2020 18:22
[2020-12-01 20:00] VITALS: BP 125/69
[2020-12-02 05:45] LABS: BASOPHILS # (AUTO) 0.1 10^3/uL (0.0-0.1); BASOPHILS % (AUTO) 1 % (0-10); EOSINOPHILS # (AUTO) 0.3 10^3/uL (0.0-0.3); EOSINOPHILS % (AUTO) 3 % (0-10); HEMATOCRIT 31 % (40-54); HEMOGLOBIN 10.3 g/dL (13.3-17.7); LYMPHOCYTES # (AUTO) 1.9 10^3/uL (1.0-4.0); LYMPHOCYTES % (AUTO) 18 % (12-44); MEAN CORPUSCULAR HEMOGLOBIN 31 pg (25-34); MEAN CORPUSCULAR HGB CONC 33 g/dL (32-36); MEAN CORPUSCULAR VOLUME 94 fL (80-99); MEAN PLATELET VOLUME 10.2 fL (9.0-12.2); MONOCYTES # (AUTO) 0.8 10^3/uL (0.0-1.0); MONOCYTES % (AUTO) 7 % (0-12); NEUTROPHILS # (AUTO) 7.4 10^3/uL (1.8-7.8); NEUTROPHILS % (AUTO) 71 % (42-75); PLATELET COUNT 413 10^3/uL (130-400); WHITE BLOOD COUNT 10.4 10^3/uL (4.3-11.0)
[2020-12-02] MEDS: NYSTATIN ORAL SUSP 5 ML UDC PO SCH ×4 (05:59→17:34)
[2020-12-02 06:00] LABS: ALBUMIN 3.5 GM/DL (3.2-4.5); CHLORIDE 102 MMOL/L (98-107); POTASSIUM 5.3 MMOL/L (3.6-5.0); SODIUM 137 MMOL/L (135-145)
[2020-12-02 06:02] LABS: CALCIUM 9.9 MG/DL (8.5-10.1)
[2020-12-02 06:03] LABS: GLUCOSE 159 MG/DL (70-105); TOTAL PROTEIN 7.7 GM/DL (6.4-8.2)
[2020-12-02 06:04] LABS: CARBON DIOXIDE 24 MMOL/L (21-32)
[2020-12-02 06:05] LABS: BILIRUBIN,TOTAL 0.3 MG/DL (0.1-1.0)
[2020-12-02 06:06] LABS: ALKALINE PHOSPHATASE 67 U/L (40-136); CREATININE SERUM 0.88 MG/DL (0.60-1.30); GFR ESTIMATED > 60
[2020-12-02 06:08] LABS: BUN/CREATININE RATIO 24
[2020-12-02 06:09] LABS: ALANINE AMINOTRANSFERASE 13 U/L (0-55)
--- NOTE | 2020-12-02 06:57 | PM&R Progress Note ---
Subjective HPI/CC On Admission Date Seen by Provider: Dec 02, 2020 Time Seen by Provider: 09:00 Subjective/Events-last exam 12/02/2020: Patient doing pretty well Bowels moved yesterday Blood sugar good at 159 Needs double portions 12/01/2020: Patient doing pretty well No significant concerns Changing fentanyl to only given before dressing changes Oxycodone ordered for increased pain if it occurs 11/30/2020: Patient is a very brittle diabetic Feels like he is doing pretty well though Increase in consumption of snacks and junk food and his blood sugars are 366 Ongoing chronic pain issues 11/29/2020: Patient settling in pretty well Very brittle diabetes noted Pain is pretty well controlled No falls Bradycardic and held metoprolol Dr. Carroll makes the dressing changes Hemoglobin A1c is pending but after rounds it came back at 10.3 Review of Systems General: Fatigue, Malaise Musculoskeletal: leg pain Neurological: Weakness Objective Exam Vital Signs Vital Signs Date Time Temp Pulse Resp B/P (MAP) Pulse Ox O2 Delivery O2 Flow Rate FiO2 12/02/20 21:00 Room Air 12/02/20 20:00 36.8 86 16 118/71 (87) 97 Capillary Refill : General Appearance: No Apparent Distress, WD/WN, Chronically ill, Thin HEENT: PERRL/EOMI, Normal ENT Inspection, Pharynx Normal Neck: Full Range of Motion, Normal Inspection, Non Tender, Supple, Carotid Bruit Respiratory: Chest Non Tender, Lungs Clear, Normal Breath Sounds, No Accessory Muscle Use, No Respiratory Distress Cardiovascular: Regular Rate, Rhythm, No Edema, No Gallop, No JVD, No Murmur, Normal Peripheral Pulses Gastrointestinal: Normal Bowel Sounds, No Organomegaly, No Pulsatile Mass, Non Tender, Soft Back: Normal Inspection, No CVA Tenderness, No Vertebral Tenderness Extremity: Normal Capillary Refill, Normal Inspection, Normal Range of Motion, Non Tender, No Calf Tenderness, No Pedal Edema, Other (Left BKA) Neurologic/Psychiatric: Alert, Oriented x3, No Motor/Sensory Deficits, Normal Mood/Affect, project developer II-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 FIM Transfers Therapy Code Descriptions/Definitions Functional [place] Measure: 0=Not Assessed/NA 4=Minimal Assistance 1=Total Assistance 5=Supervision or Setup 2=Maximal Assistance 6=Modified [place] 3=Moderate Assistance 7=Complete IndependenceSCALE: Activities may be completed with or without assistive devices. 5-Wzkiimtelo-xskyaeg completes the activity by him/herself with no assistance from a helper. 5-Set-up or Clean-up Assistance-helper sets up or cleans up; patient completes activity. [place] assists only prior to or following the activity. 4-Supervision or Touching Assistance-helper provides verbal cues and/or touching/steadying and/or contact guard assistance as patient completes activity. Assistance may be provided throughout the activity or intermittently. 3-Partial/Moderate Assistance-helper does LESS THAN HALF the effort. [place] lifts, holds or supports trunk or limbs, but provides less than half the effort. 2-Substantial/Maximal Assistance-helper does MORE THAN HALF the effort. [place] lifts or holds trunk or limbs and provides more than half the effort. 3-Whjselieo-chkdwi does ALL the effort. Patient does none of the effort to complete the activity. Or, the assistance of 2 or more helpers is required for the patient to complete the activity. If activity was not attempted, code reason: 7-Patient Refused. 9-Not Applicable-not attempted and the patient did not perform the activity before the current illness, exacerbation or injury. 10-Not Attempted due to Environmental Limitations-(lack of equipment, weather restraints, etc.). 88-Not Attempted due to Medical Conditions or Safety Concerns. Roll Left to Right (QC): 6 Sit to Lying (QC): 6 Sit to Stand (QC): 4 Chair/Eeu-hj-Gwkfq Xfer(QC): 4 Car Transfer (QC): 4 Gait Training Does the Patient Walk?: Yes Distance: 6'x3 Walk 10 feet (QC): 88 Walk 50 ft with 2 Turns(QC): 88 Walk 150 ft (QC): 88 Walking 10ft/uneven surface-QC: 88 Gait Persons Needed: 1 Gait Assistive Device: Parallel Bars Wheelchair Training Does the Pt Use a Wheelchair?: Yes Distance: 150'x3 Wheel 50 ft with 2 turns (QC): 6 Wheel 150 ft (QC): 6 Type of Wheelchair: Manual Stair Training 1 Step (curb) (QC): 88 4 Steps (QC): 88 12 Steps (QC): 88 Balance Picking up an Object (QC): 88 ADL-Treatment Eating (QC): 6 Oral Hygiene (QC): 7 Shower/Bathe Self (QC): 7 Upper Body Dressing (QC): 7 Lower Body Dressing (QC): 7 On/Off Footwear (QC): 7 Toileting Hygiene (QC): 7 Toilet Transfer (QC): 7 Assessment/Plan Assessment and Plan Assess & Plan/Chief Complaint Assessment: Status post left below the knee amputation Diabetes insulin requiring Chronic pain Status post septic shock Plan: Pain control Discontinue catheter Inpatient rehab protocol Monitor closely 11/29/2020: Brittle diabetes noted with poor control with hemoglobin A1c of over 10 Pain control Dressing changes per Dr. Carroll 11/30/2020: Continue pain management Aggressive therapy Monitor closely 12/01/2020: Monitor blood sugar closely Brittle diabetes noted Pain control 12/02/2020: Double portions Monitor sugar Pain control (1) Hx of BKA (2) Drug overdose, multiple drugs Status: Acute (3) Amputation stump infection Status: Acute (4) T2DM (type 2 diabetes mellitus) Status: Acute (5) Septic shock Status: Resolved Resolution Date/Time: 11/20/20 @ 10:53 (6) Acute osteomyelitis of left tibia Status: Acute CHIP TAPIA DO Dec 02, 2020 06:57
[2020-12-02] MEDS: inSUlin ASPART (NovoLOG) 1 UNIT/0.01 ML (CHARGE PER UNIT) SC SCH ×3 (07:33→17:34)
[2020-12-02] MEDS: GABAPENTIN 400 MG (NEURONTIN) CAP PO SCH ×3 (07:33→22:18)
[2020-12-02] MEDS: metFORMIN 500 MG (GLUCOPHAGE) TAB PO SCH ×2 (07:33→17:34)
[2020-12-02] MEDS: PANTOPRAZOLE 40 MG (PROTONIX) TAB PO SCH (07:33)
[2020-12-02] MEDS: NICOTINE 21 MG (NICODERM) PATCH TD SCH (07:34)
[2020-12-02] MEDS: polyethylene glycoL POWDER 17 GM (MIRALAX) PACK PO SCH ×2 (07:34→22:18)
[2020-12-02] MEDS: SENNA W/DOCUSATE (SENOKOT S) TABLET PO SCH ×2 (07:34→22:18)
[2020-12-02] MEDS: NICOTINE PATCH REMOVAL TP SCH (07:34)
[2020-12-02] MEDS: DOCUSATE SODIUM 100 MG (COLACE) CAP PO SCH ×2 (07:34→22:19)
[2020-12-02 08:00] VITALS: BP 105/56
[2020-12-02] MEDS: fentaNYL INJ 100 MCG/2 ML AMP IVP PRN (10:06)
--- NOTE | 2020-12-02 12:07 | Physical Therapy Daily Note ---
PT Daily Note-Current Subjective Patient in WC pre tx, agrees to PT, has no complaints of pain at rest. Will be co-treating with OT to work on ambulation and some balance training, due to safety and decrease change of falling, coordinate UE and LE during activity Appearance Patient in therapy gym post tx with OT to continue to work for a while Mental Status Patient Orientation: Normal For Age Transfers SCALE: Activities may be completed with or without assistive devices. 4-Omsjfufced-mxkpjlg completes the activity by him/herself with no assistance from a helper. 5-Set-up or Clean-up Assistance-helper sets up or cleans up; patient completes activity. [place] assists only prior to or following the activity. 4-Supervision or Touching Assistance-helper provides verbal cues and/or touching/steadying and/or contact guard assistance as patient completes activity. Assistance may be provided throughout the activity or intermittently. 3-Partial/Moderate Assistance-helper does LESS THAN HALF the effort. [place] l ifts, holds or supports trunk or limbs, but provides less than half the effort. 2-Substantial/Maximal Assistance-helper does MORE THAN HALF the effort. [place] lifts or holds trunk or limbs and provides more than half the effort. 4-Saqflecgg-pjauzv does ALL the effort. Patient does none of the effort to complete the activity. Or, the assistance of 2 or more helpers is required for t he patient to complete the activity. If activity was not attempted, code reason: 7-Patient Refused. 9-Not Applicable-not attempted and the patient did not perform the activity before the current illness, exacerbation or injury. 10-Not Attempted due to Environmental Limitations-(lack of equipment, weather restraints, etc.). 88-Not Attempted due to Medical Conditions or Safety Concerns. Sit to Stand (QC): 4 Chair/Dqr-xo-Xphby Xfer(QC): 4 Gait Training Distance: 6'x3 Gait Assistive Device: Parallel Bars [facility], follow, cues for UE positioning Wheelchair Training Does the Pt Use a Wheelchair?: Yes Wheel 50 ft with 2 turns (QC): 5 Wheel 150 ft (QC): 5 Type of Wheelchair: Manual 300' Exercises supine left knee extension stretch for 5 min, standing UE reaching activity and keeping balance with both hands hovering over the parallel bars NuStep Minutes: 15 NuStep Workload: 5 (LLE not used) Treatments PTperformed transfers, ambulation, WC mobility, balance training, stretching, OT performed UE exercise, UE positioning and safety during activity, balance training Assessment Current Status: Fair Progress improving transfers, almost SBA, better foot clearance during ambulation PT Short Term Goals Short Term Goals Time Frame: Dec 05, 2020 Roll Left & Right: 6 Sit to lyin Lying to sitting on side of be: 6 Sit to stand: 4 Chair/qcf-uy-xplvp transfer: 4 Walk 10 feet: 4 PT Metal Numerical Tool Programmer Goals Metal Numerical Tool Programmer Goals PT Metal Numerical Tool Programmer Goals Time Frame: Dec 19, 2020 Roll Left & Right (QC): 6 Sit to Lying (QC): 6 Lying-Sitting on Side/Bed(QC): 6 Sit to Stand (QC): 5 Chair/Dym-fi-Jsljs Xfer(QC): 5 Toilet Transfer (QC): 5 Car Transfer (QC): 5 Does the Patient Walk: Yes Walk 10 feet (QC): 4 Walk 50ft with 2 Turns (QC): 4 Walk 150 ft (QC): 88 Walking 10ft on Uneven Surface: 4 1 Step (curb) (QC): 4 4 Steps (QC): 4 12 Steps (QC): 88 Picking up an Object (QC): 4 Wheel 50 feet with 2 turns (QC: 6 Wheel 150 feet: 6 PT Plan Problem List Problem List: Activity Tolerance, Functional Strength, Safety, Balance, Gait, Transfer, Bed Mobility, ROM Treatment/Plan Treatment Plan: Continue Plan of Care Treatment Plan: Bed Mobility, Education, Functional Activity Jessi, Functional Strength, Group Therapy, Gait, Safety, Therapeutic Exercise, Transfers Treatment Duration: Dec 19, 2020 Frequency: At least 5 of 7 days/Wk (IRF) Estimated Hrs Per Day: 1.5 hours per day Patient and/or Family Agrees t: Yes Safety Risks/Education Patient Education: Gait Training, Transfer Techniques, Correct Positioning, W/C Management, Safety Issues Teaching Recipient: Patient Teaching Methods: Demonstration, Discussion Response to Teaching: Reinforcement Needed Time/GCodes Time In: 1030 Time Out: 1130 Total Billed Treatment Time: 60 Total Billed Treatment 1 visit EX 20' FA 30' NM 10' co-treated with OT for 30' from [id number] ITALO ESPINAL PT Dec 02, 2020 12:07
--- NOTE | 2020-12-02 14:11 | Occupational Ther Daily Note ---
OT Current Status-Daily Note Subjective Pt seen in gym initially to co-treat with PT. Pt did not verbalize pain except for discomfort when stretching L knee and in tailbone frompressure area. Appearance Alert and cooperative ADL-Treatment Co-tx initially in parallel bars with PT, working on UE weight transfers and functional mobility. Also worked on releasing support on individual UEs, then bilat UEs, with discussion on base of support needed for ADLs. Pt transferred to gym and completed bilat UE exercise while stretching L knee into extension. Co- tx needed due to need for two professionals to work on different body areas at same time and due to decreased standing balance safety. Co-treated activities with assist with standing as needed during ADLs and while standing at sink for grooming. Pt completed 10 reps bilat UE ex with 1.5# weight bar, then 10 reps unilateral UE exercises with 2# weight, focusing on movements necessary for tr ansfers and ADLs. [facility] with CGA. He propelled himself back to room. Cues for locking brakes. Pt was able to don pants with setup, standing with CGA to pull them up. He transferred CGA from w/c to bed and was able to position himself in bed. Pt left up in bed, 4 rails up with his OK, all needs met. Therapy Code Descriptions/Definitions Functional [place] Measure: 0=Not Assessed/NA 4=Minimal Assistance 1=Total Assistance 5=Supervision or Setup 2=Maximal Assistance 6=Modified [place] 3=Moderate Assistance 7=Complete IndependenceSCALE: Activities may be completed with or without assistive devices. 4-Zsakvuyfqr-jazkpdl completes the activity by him/herself with no assistance from a helper. 5-Set-up or Clean-up Assistance-helper sets up or cleans up; patient completes activity. [place] assists only prior to or following the activity. 4-Supervision or Touching Assistance-helper provides verbal cues and/or touching/steadying and/or contact guard assistance as patient completes activity. Assistance may be provided throughout the activity or intermittently. 3-Partial/Moderate Assistance-helper does LESS THAN HALF the effort. [place] lifts, holds or supports trunk or limbs, but provides less than half the effort. 2-Substantial/Maximal Assistance-helper does MORE THAN HALF the effort. [place] lifts or holds trunk or limbs and provides more than half the effort. 9-Axffycneu-wbpowp does ALL the effort. Patient does none of the effort to complete the activity. Or, the assistance of 2 or more helpers is required for the patient to complete the activity. If activity was not attempted, code reason: 7-Patient Refused. 9-Not Applicable-not attempted and the patient did not perform the activity before the current illness, exacerbation or injury. 10-Not Attempted due to Environmental Limitations-(lack of equipment, weather restraints, etc.). 88-Not Attempted due to Medical Conditions or Safety Concerns. Lower Body Dressing (QC): 4 (CGA for standing) Education OT Patient Education: Modified ADL techniques, Progress toward Goal/Update tx plan, Purpose of tx/functional activities, Safety issues, Transfer techniques Teaching Methods: Discussion Response to Teaching: Verbalize Understanding, Return Demonstration, Reinforcement Needed OT Short Term Goals Short Term Goals Time Frame: Dec 05, 2020 Eatin Oral hygiene: 6 Toileting hygiene: 4 Shower/bathe self: 4 Upper body dressin Lower body dressin Putting on/taking off footwear: 4 OT Bedspread Cutter Hand Goals Bedspread Cutter Hand Goals Time Frame: Dec 19, 2020 Eating (QC): 6 Oral Hygiene (QC): 6 Toileting Hygiene (QC): 6 Shower/Bathe Self (QC): 4 Upper Body Dressing (QC): 6 Lower Body Dressing (QC): 6 On/Off Footwear (QC): 6 Additional Goals: 1-Demonstrate ADL Tasks, 2-Verbalize Understanding, 3- ImproveStrength/Jessi 1=Demonstrate adherence to instructed precautions during ADL tasks. 2=Patient will verbalize/demonstrate understanding of assistive devices/modifications for ADL. 3=Patient will improve strength/tolerance for activity to enable patient to perform ADL's. OT Education/Plan Discharge Recommendations Plan/Recommendations: Continue POC Treatment Plan/Plan of Care Patient would benefit from OT for education, treatment and training to promote independence in ADL's, mobility, safety and/or upper extremity function for ADL's. Plan of Care: ADL Retraining, Functional Mobility, UE Funct Exercise/Act Treatment Duration: Dec 19, 2020 Frequency: At least 5 of 7 days/Wk (IRF) Estimated Hrs Per Day: 1.5 hours per day Agreement: Yes Rehab Potential: Fair Time/GCodes Start Time: 11:00 Stop Time: 12:00 Total Time Billed (hr/min): 60 Billed Treatment Time Co-tx with PT 11:00 to 11:30, then individual 11:30 to 12:00 visit, 45 minutes functional activities, 15 minutes ADL ALCON FAIR OT Dec 02, 2020 14:11
--- NOTE | 2020-12-02 14:19 | Therapy Group Daily Note ---
Therapy Daily Group Note Patient Education Topic Other List Below (introduction to rehab) Exercises UE Exercise Session Ratio (pt:therapist): 4:1 Goal of Session: Education on INU Expectations, Memory Strategies, UE/LE Strengthing intro to rehab, memory strategies, UE exercise, socialization Goal Met for this Session: Yes Pt Benefit of Group: Contributions to Others, Increased Functional Strength, Improved Cognition, Recognition of Peers, Socialization Contributions to Others, Increased Functional Safety, Increased Functional Strength, Improved Cognition, Recognition of Peers, Socialization Other/Notes Using w/c, pt propelled to OT/PT group at [facility]. Group consisted of introductions(name, place born, first memory), socialization, patient introduced to the purpose and expectations of rehab and performed a memory exercise with UE exercise and educated on memory strategies. Pt introduced self appropriately and actively listened to peers. Pt acknowledged understanding of educational topics by giving own examples. 5 words given for memory task-dog, jesús, 6, burrito, guitar. After session, pt in WC at bedside with call light/phone in reach. All needs met in room. Start Time: 13:00 Stop Time: 14:00 Total Billed Treatment Time: 60 Total Billed Treatment 1 visit GRP ITALO DA SILVA PT Dec 02, 2020 14:19
[2020-12-02] MEDS: ENOXAPARIN 40 MG/0.4 ML (LOVENOX) SYR SC SCH (16:24)
[2020-12-02 20:00] VITALS: BP 118/71
[2020-12-03] MEDS: NYSTATIN ORAL SUSP 5 ML UDC PO SCH ×4 (00:31→17:20)
[2020-12-03 08:02] VITALS: BP 109/60
[2020-12-03] MEDS: metFORMIN 500 MG (GLUCOPHAGE) TAB PO SCH ×2 (08:10→17:20)
[2020-12-03] MEDS: PANTOPRAZOLE 40 MG (PROTONIX) TAB PO SCH (08:10)
[2020-12-03] MEDS: NICOTINE 21 MG (NICODERM) PATCH TD SCH (08:10)
[2020-12-03] MEDS: DOCUSATE SODIUM 100 MG (COLACE) CAP PO SCH ×2 (08:10→21:00)
[2020-12-03] MEDS: GABAPENTIN 400 MG (NEURONTIN) CAP PO SCH ×3 (08:10→21:14)
[2020-12-03] MEDS: NICOTINE PATCH REMOVAL TP SCH (08:11)
[2020-12-03] MEDS: polyethylene glycoL POWDER 17 GM (MIRALAX) PACK PO SCH ×2 (08:11→21:00)
[2020-12-03] MEDS: SENNA W/DOCUSATE (SENOKOT S) TABLET PO SCH ×2 (08:11→21:00)
[2020-12-03] MEDS: inSUlin ASPART (NovoLOG) 1 UNIT/0.01 ML (CHARGE PER UNIT) SC SCH ×6 (09:48→21:02)
--- NOTE | 2020-12-03 10:57 | PM&R Progress Note ---
Subjective HPI/CC On Admission Date Seen by Provider: Dec 03, 2020 Time Seen by Provider: 11:00 Subjective/Events-last exam 12/03/2020: Patient doing pretty well Complains of pain constantly out of proportion Sliding scale a initiated No falls 12/02/2020: Patient doing pretty well Bowels moved yesterday Blood sugar good at 159 Needs double portions 12/01/2020: Patient doing pretty well No significant concerns Changing fentanyl to only given before dressing changes Oxycodone ordered for increased pain if it occurs 11/30/2020: Patient is a very brittle diabetic Feels like he is doing pretty well though Increase in consumption of snacks and junk food and his blood sugars are 366 Ongoing chronic pain issues 11/29/2020: Patient settling in pretty well Very brittle diabetes noted Pain is pretty well controlled No falls Bradycardic and held metoprolol Dr. Carroll makes the dressing changes Hemoglobin A1c is pending but after rounds it came back at 10.3 Review of Systems General: Fatigue Musculoskeletal: leg pain Objective Exam Vital Signs Vital Signs Date Time Temp Pulse Resp B/P (MAP) Pulse Ox O2 Delivery O2 Flow Rate FiO2 12/03/20 20:10 Room Air 12/03/20 20:00 36.8 107 16 130/72 (91) 96 Capillary Refill : General Appearance: No Apparent Distress, WD/WN, Chronically ill, Thin HEENT: PERRL/EOMI, Normal ENT Inspection, Pharynx Normal Neck: Full Range of Motion, Normal Inspection, Non Tender, Supple, Carotid Bruit Respiratory: Chest Non Tender, Lungs Clear, Normal Breath Sounds, No Accessory Muscle Use, No Respiratory Distress Cardiovascular: Regular Rate, Rhythm, No Edema, No Gallop, No JVD, No Murmur, Normal Peripheral Pulses Gastrointestinal: Normal Bowel Sounds, No Organomegaly, No Pulsatile Mass, Non Tender, Soft Back: Normal Inspection, No CVA Tenderness, No Vertebral Tenderness Extremity: Normal Capillary Refill, Normal Inspection, Normal Range of Motion, Non Tender, No Calf Tenderness, No Pedal Edema, Other (Left BKA) Neurologic/Psychiatric: Alert, Oriented x3, No Motor/Sensory Deficits, Normal Mood/Affect, fermenting cellar dropper II-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 FIM Transfers Therapy Code Descriptions/Definitions Functional [place] Measure: 0=Not Assessed/NA 4=Minimal Assistance 1=Total Assistance 5=Supervision or Setup 2=Maximal Assistance 6=Modified [place] 3=Moderate Assistance 7=Complete IndependenceSCALE: Activities may be completed with or without assistive devices. 1-Ektlkbhmoz-xiekpgh completes the activity by him/herself with no assistance from a helper. 5-Set-up or Clean-up Assistance-helper sets up or cleans up; patient completes activity. [place] assists only prior to or following the activity. 4-Supervision or Touching Assistance-helper provides verbal cues and/or touching/steadying and/or contact guard assistance as patient completes activity. Assistance may be provided throughout the activity or intermittently. 3-Partial/Moderate Assistance-helper does LESS THAN HALF the effort. [place] lifts, holds or supports trunk or limbs, but provides less than half the effort. 2-Substantial/Maximal Assistance-helper does MORE THAN HALF the effort. [place] lifts or holds trunk or limbs and provides more than half the effort. 4-Axsudklmn-vzwmwc does ALL the effort. Patient does none of the effort to complete the activity. Or, the assistance of 2 or more helpers is required for the patient to complete the activity. If activity was not attempted, code reason: 7-Patient Refused. 9-Not Applicable-not attempted and the patient did not perform the activity before the current illness, exacerbation or injury. 10-Not Attempted due to Environmental Limitations-(lack of equipment, weather restraints, etc.). 88-Not Attempted due to Medical Conditions or Safety Concerns. Roll Left to Right (QC): 6 Sit to Lying (QC): 6 Sit to Stand (QC): 4 Chair/Gpq-ey-Lzhcp Xfer(QC): 4 Car Transfer (QC): 4 Gait Training Does the Patient Walk?: Yes Distance: 6'x3 Walk 10 feet (QC): 88 Walk 50 ft with 2 Turns(QC): 88 Walk 150 ft (QC): 88 Walking 10ft/uneven surface-QC: 88 Gait Persons Needed: 1 Gait Assistive Device: Parallel Bars Wheelchair Training Does the Pt Use a Wheelchair?: Yes Distance: 150'x3 Wheel 50 ft with 2 turns (QC): 5 Wheel 150 ft (QC): 5 Type of Wheelchair: Manual Stair Training 1 Step (curb) (QC): 88 4 Steps (QC): 88 12 Steps (QC): 88 Balance Picking up an Object (QC): 88 ADL-Treatment Eating (QC): 6 Oral Hygiene (QC): 7 Shower/Bathe Self (QC): 7 Upper Body Dressing (QC): 7 Lower Body Dressing (QC): 4 (CGA for standing) On/Off Footwear (QC): 7 Toileting Hygiene (QC): 7 Toilet Transfer (QC): 7 Assessment/Plan Assessment and Plan Assess & Plan/Chief Complaint Assessment: Status post left below the knee amputation Diabetes insulin requiring Chronic pain Status post septic shock Plan: Pain control Discontinue catheter Inpatient rehab protocol Monitor closely 11/29/2020: Brittle diabetes noted with poor control with hemoglobin A1c of over 10 Pain control Dressing changes per Dr. Carroll 11/30/2020: Continue pain management Aggressive therapy Monitor closely 12/01/2020: Monitor blood sugar closely Brittle diabetes noted Pain control 12/02/2020: Double portions Monitor sugar Pain control 12/03/2020: Maintain pain meds Discussed smoking cessation (1) Hx of BKA (2) Drug overdose, multiple drugs Status: Acute (3) Amputation stump infection Status: Acute (4) T2DM (type 2 diabetes mellitus) Status: Acute (5) Septic shock Status: Resolved Resolution Date/Time: 11/20/20 @ 10:53 (6) Acute osteomyelitis of left tibia Status: Acute CHIP TAPIA DO Dec 03, 2020 10:57
--- NOTE | 2020-12-03 11:13 | Occupational Ther Daily Note ---
OT Current Status-Daily Note Subjective Pt seen in room, up in bed, agreeable to OT. Pt declined shower this morning. Pt reported pain in L lower leg but did not rate or describe pain. He asked his nurse about pain meds. Appearance Alert, cooperative ADL-Treatment Pt transferred SBA to w/c with SPT, pt educ for w/c placement and transfer technique. He propelled w/c to bathroom to brush teeth and comb hair, cues to lock brakes on w/c before activity. Grooming was indep at w/c level. Pt propelled w/c to gym and needed to return to room to toilet. Pt educ and cues for locking brakes. Transferred SBA with grab bar to toilet and back, going both to the left and to the right. He was able to pull pants up and down SBA and leaned to place head on wall for additional stability when managing clothing. Pt left up in w/c, all needs met. Therapy Code Descriptions/Definitions Functional [place] Measure: 0=Not Assessed/NA 4=Minimal Assistance 1=Total Assistance 5=Supervision or Setup 2=Maximal Assistance 6=Modified [place] 3=Moderate Assistance 7=Complete IndependenceSCALE: Activities may be completed with or without assistive devices. 8-Yyyywqzlsd-bjfbdkn completes the activity by him/herself with no assistance from a helper. 5-Set-up or Clean-up Assistance-helper sets up or cleans up; patient completes activity. [place] assists only prior to or following the activity. 4-Supervision or Touching Assistance-helper provides verbal cues and/or touching/steadying and/or contact guard assistance as patient completes activity. Assistance may be provided throughout the activity or intermittently. 3-Partial/Moderate Assistance-helper does LESS THAN HALF the effort. [place] lifts, holds or supports trunk or limbs, but provides less than half the effort. 2-Substantial/Maximal Assistance-helper does MORE THAN HALF the effort. [place] lifts or holds trunk or limbs and provides more than half the effort. 4-Ubwufanxc-todojj does ALL the effort. Patient does none of the effort to complete the activity. Or, the assistance of 2 or more helpers is required for the patient to complete the activity. If activity was not attempted, code reason: 7-Patient Refused. 9-Not Applicable-not attempted and the patient did not perform the activity before the current illness, exacerbation or injury. 10-Not Attempted due to Environmental Limitations-(lack of equipment, weather restraints, etc.). 88-Not Attempted due to Medical Conditions or Safety Concerns. Oral Hygiene (QC): 6 Toileting Hygiene (QC): 4 (SBA) Toilet Transfer (QC): 4 (SBA) Other Treatment In gym, pt competed 12 minutes bilat UE exercise on arm bike, set at 20W resistance, taking only one brief break. He completed 10 reps bilat UE exercise using weight bar at 3.5# and barbell at 2#. Pt education on the different e xercises to do and occasional cues to do them correctly. Pt educ on w/c pushups to help strengthen arms for transfers, with cues to be sure to lock brakes first. All strengthening to help with functional mobility, transfers and ADLs. Education OT Patient Education: Exercise program, Progress toward Goal/Update tx plan, Purpose of tx/functional activities, Safety issues, Transfer techniques Teaching Recipient: Patient Teaching Methods: Demonstration, Discussion Response to Teaching: Verbalize Understanding, Return Demonstration, Reinfo rcement Needed OT Short Term Goals Short Term Goals Time Frame: Dec 05, 2020 Eatin Oral hygiene: 6 Toileting hygiene: 4 Shower/bathe self: 4 Upper body dressin Lower body dressin Putting on/taking off footwear: 4 OT Aircraft Load Controller Goals Half-Way Goals Time Frame: Dec 19, 2020 Eating (QC): 6 Oral Hygiene (QC): 6 Toileting Hygiene (QC): 6 Shower/Bathe Self (QC): 4 Upper Body Dressing (QC): 6 Lower Body Dressing (QC): 6 On/Off Footwear (QC): 6 Additional Goals: 1-Demonstrate ADL Tasks, 2-Verbalize Understanding, 3- ImproveStrength/Jessi 1=Demonstrate adherence to instructed precautions during ADL tasks. 2=Patient will verbalize/demonstrate understanding of assistive devices/modifications for ADL. 3=Patient will improve strength/tolerance for activity to enable patient to perform ADL's. OT Education/Plan Discharge Recommendations Plan/Recommendations: Continue POC Treatment Plan/Plan of Care Patient would benefit from OT for education, treatment and training to promote independence in ADL's, mobility, safety and/or upper extremity function for ADL's. Plan of Care: ADL Retraining, Functional Mobility, UE Funct Exercise/Act Treatment Duration: Dec 19, 2020 Frequency: At least 5 of 7 days/Wk (IRF) Estimated Hrs Per Day: 1.5 hours per day Agreement: Yes Rehab Potential: Fair Time/GCodes Start Time: 08:41 Stop Time: 09:45 Total Time Billed (hr/min): 64 Billed Treatment Time visit, ADL 30 minutes, exercise 34 minutes ALCON FAIR OT Dec 03, 2020 11:13
--- NOTE | 2020-12-03 12:22 | Physical Therapy Daily Note ---
PT Daily Note-Current Subjective Pt sitting in [facility] ordering lunch in room upon arrival. Pt agrees to PT. Pain Location: Incisional, Left Location Body Site: Knee Pain Description: Ache Comment: Reports pain while standing but doesn't rate Mental Status Patient Orientation: Person, Place, Time, Situation Transfers SCALE: Activities may be completed with or without assistive devices. 4-Spvofnmujb-ehnuxfr completes the activity by him/herself with no assistance from a helper. 5-Set-up or Clean-up Assistance-helper sets up or cleans up; patient completes activity. [place] assists only prior to or following the activity. 4-Supervision or Touching Assistance-helper provides verbal cues and/or touching/steadying and/or contact guard assistance as patient completes activity. Assistance may be provided throughout the activity or intermittently. 3-Partial/Moderate Assistance-helper does LESS THAN HALF the effort. [place] lifts, holds or supports trunk or limbs, but provides less than half the effort. 2-Substantial/Maximal Assistance-helper does MORE THAN HALF the effort. [place] lifts or holds trunk or limbs and provides more than half the effort. 5-Frhryvlgs-wnqtyb does ALL the effort. Patient does none of the effort to complete the activity. Or, the assistance of 2 or more helpers is required for the patient to complete the activity. If activity was not attempted, code reason: 7-Patient Refused. 9-Not Applicable-not attempted and the patient did not perform the activity before the current illness, exacerbation or injury. 10-Not Attempted due to Environmental Limitations-(lack of equipment, weather restraints, etc.). 88-Not Attempted due to Medical Conditions or Safety Concerns. Sit to Stand (QC): 5 Weight Bearing Right Lower Extremity: Right Full Weight Bearing Gait Training Does the Patient Walk?: Yes Distance: 15' Walk 10 feet (QC): 5 Gait Persons Needed: 1 Gait Assistive Device: FWW [facility] follows per pt request due to fatigue. Wheelchair Training Does the Pt Use a Wheelchair?: Yes Wheel 50 ft with 2 turns (QC): 6 Wheel 150 ft (QC): 6 Type of Wheelchair: Manual Exercises NuStep Minutes: 12 NuStep Workload: 5 Treatments Finishes ordering lunch and discusses wanting to go home and feeling ready. TRIPLE VALVE TESTER explains weekly Therapy Mtg. tomorrow and would know more after that. Propels [facility] in hallway then TF to NuStep. This is followed by short amb. in hallway before returning to Therapy Gym to work with OT. Assessment Current Status: Good Progress Pt preoccupied with DC soon and the need to care for family and stop smoking at home. PT Short Term Goals Short Term Goals Time Frame: Dec 05, 2020 Roll Left & Right: 6 Sit to lyin Lying to sitting on side of be: 6 Sit to stand: 4 Chair/ajb-co-lvpcg transfer: 4 Walk 10 feet: 4 PT Zinc Etcher Goals Zinc Etcher Goals PT Zinc Etcher Goals Time Frame: Dec 19, 2020 Roll Left & Right (QC): 6 Sit to Lying (QC): 6 Lying-Sitting on Side/Bed(QC): 6 Sit to Stand (QC): 5 Chair/Hsw-vd-Ghorj Xfer(QC): 5 Toilet Transfer (QC): 5 Car Transfer (QC): 5 Does the Patient Walk: Yes Walk 10 feet (QC): 4 Walk 50ft with 2 Turns (QC): 4 Walk 150 ft (QC): 88 Walking 10ft on Uneven Surface: 4 1 Step (curb) (QC): 4 4 Steps (QC): 4 12 Steps (QC): 88 Picking up an Object (QC): 4 Wheel 50 feet with 2 turns (QC: 6 Wheel 150 feet: 6 PT Plan Treatment/Plan Treatment Plan: Continue Plan of Care Treatment Plan: Bed Mobility, Education, Functional Activity Jessi, Functional Strength, Group Therapy, Gait, Safety, Therapeutic Exercise, Transfers Treatment Duration: Dec 19, 2020 Frequency: At least 5 of 7 days/Wk (IRF) Estimated Hrs Per Day: 1.5 hours per day Patient and/or Family Agrees t: Yes Safety Risks/Education Patient Education: Steps, Correct Positioning, Safety Issues Teaching Recipient: Patient Teaching Methods: Discussion Response to Teaching: Verbalize Understanding Time/GCodes Time In: 1045 Time Out: 1130 Total Billed Treatment Time: 45 Total Billed Treatment 1, EX (15m), WCH (15m) & FA (15m) WHITNEY PLAAFOX TRIPLE VALVE TESTER Dec 03, 2020 12:22
--- NOTE | 2020-12-03 12:43 | Occupational Ther Daily Note ---
OT Current Status-Daily Note Subjective Pt seen in gym after PT. Pt mentioned it was time for pain meds and nursing provided. Appearance Alert, cooperative ADL-Treatment Therapy Code Descriptions/Definitions Functional [place] Measure: 0=Not Assessed/NA 4=Minimal Assistance 1=Total Assistance 5=Supervision or Setup 2=Maximal Assistance 6=Modified [place] 3=Moderate Assistance 7=Complete IndependenceSCALE: Activities may be completed with or without assistive devices. 4-Kmyzrvimnf-txqveyw completes the activity by him/herself with no assistance from a helper. 5-Set-up or Clean-up Assistance-helper sets up or cleans up; patient completes activity. [place] assists only prior to or following the activity. 4-Supervision or Touching Assistance-helper provides verbal cues and/or touching/steadying and/or contact guard assistance as patient completes activity. Assistance may be provided throughout the activity or intermittently. 3-Partial/Moderate Assistance-helper does LESS THAN HALF the effort. [place] lifts, holds or supports trunk or limbs, but provides less than half the effort. 2-Substantial/Maximal Assistance-helper does MORE THAN HALF the effort. [place] lifts or holds trunk or limbs and provides more than half the effort. 6-Hbeczrldj-xdkjzq does ALL the effort. Patient does none of the effort to complete the activity. Or, the assistance of 2 or more helpers is required for the patient to complete the activity. If activity was not attempted, code reason: 7-Patient Refused. 9-Not Applicable-not attempted and the patient did not perform the activity before the current illness, exacerbation or injury. 10-Not Attempted due to Environmental Limitations-(lack of equipment, weather restraints, etc.). 88-Not Attempted due to Medical Conditions or Safety Concerns. Other Treatment Cues to lock brakes on w/c before performing exercises. reviewed w/c pushup from earlier. Pt provided with red theraband (medium resistance). Pt education 5 di fferent UE exercises with theraband. he completed 10 reps each, sometimes requiring verbal or physical cues to be able to do them correctly. Pt provided with written instructions for the 5 exercises and completed 7-10 reps of each exercise, after reviewing them and correlating them to handout. He had difficulty remembering the details of each exercise (such as keeping elbows straight) and had difficulty switching hands to do unilateral exercises. Pt propelled w/c back to room and was left up in w/c for lunch, with cues to lock brakes. Education OT Patient Education: Exercise program, Home exercise program, Purpose of tx/functional activities Teaching Recipient: Patient Teaching Methods: Demonstration, Discussion, Audiovisual Response to Teaching: Verbalize Understanding, Return Demonstration, Reinforcement Needed OT Short Term Goals Short Term Goals Time Frame: Dec 05, 2020 Eatin Oral hygiene: 6 Toileting hygiene: 4 Shower/bathe self: 4 Upper body dressin Lower body dressin Putting on/taking off footwear: 4 OT Detention Goals Wood And Hardware Outfitter Goals Time Frame: Dec 19, 2020 Eating (QC): 6 Oral Hygiene (QC): 6 Toileting Hygiene (QC): 6 Shower/Bathe Self (QC): 4 Upper Body Dressing (QC): 6 Lower Body Dressing (QC): 6 On/Off Footwear (QC): 6 Additional Goals: 1-Demonstrate ADL Tasks, 2-Verbalize Understanding, 3- ImproveStrength/Jessi 1=Demonstrate adherence to instructed precautions during ADL tasks. 2=Patient will verbalize/demonstrate understanding of assistive devices/modifications for ADL. 3=Patient will improve strength/tolerance for activity to enable patient to perform ADL's. OT Education/Plan Discharge Recommendations Plan/Recommendations: Continue POC Treatment Plan/Plan of Care Patient would benefit from OT for education, treatment and training to promote independence in ADL's, mobility, safety and/or upper extremity function for ADL's. Plan of Care: ADL Retraining, Functional Mobility, UE Funct Exercise/Act Treatment Duration: Dec 19, 2020 Frequency: At least 5 of 7 days/Wk (IRF) Estimated Hrs Per Day: 1.5 hours per day Agreement: Yes Rehab Potential: Fair Time/GCodes Start Time: 11:30 Stop Time: 12:00 Total Time Billed (hr/min): 30 Billed Treatment Time visit 30 minutes ADL ALCON FAIR OT Dec 03, 2020 12:43
[2020-12-03] MEDS: fentaNYL INJ 100 MCG/2 ML AMP IVP PRN (15:48)
[2020-12-03] MEDS: ENOXAPARIN 40 MG/0.4 ML (LOVENOX) SYR SC SCH (16:06)
--- NOTE | 2020-12-03 16:22 | Physical Therapy Daily Note ---
PT Daily Note-Current Subjective Pt sitting in [facility] in room, finishing lunch upon arrival. Pt agrees to PT. Pain Location: Incisional, Left Location Body Site: Knee Pain Description: Ache Comment: Reported pain but not rated Mental Status Patient Orientation: Person, Place Transfers SCALE: Activities may be completed with or without assistive devices. 9-Ycplfcetvw-dxzyxuo completes the activity by him/herself with no assistance from a helper. 5-Set-up or Clean-up Assistance-helper sets up or cleans up; patient completes activity. [place] assists only prior to or following the activity. 4-Supervision or Touching Assistance-helper provides verbal cues and/or to uching/steadying and/or contact guard assistance as patient completes activity. Assistance may be provided throughout the activity or intermittently. 3-Partial/Moderate Assistance-helper does LESS THAN HALF the effort. [place] lifts, holds or supports trunk or limbs, but provides less than half the effort. 2-Substantial/Maximal Assistance-helper does MORE THAN HALF the effort. [place] lifts or holds trunk or limbs and provides more than half the effort. 0-Pcapnsieu-khmhtj does ALL the effort. Patient does none of the effort to complete the activity. Or, the assistance of 2 or more helpers is required for the patient to complete the activity. If activity was not attempted, code reason: 7-Patient Refused. 9-Not Applicable-not attempted and the patient did not perform the activity before the current illness, exacerbation or injury. 10-Not Attempted due to Environmental Limitations-(lack of equipment, weather restraints, etc.). 88-Not Attempted due to Medical Conditions or Safety Concerns. Sit to Stand (QC): 5 Weight Bearing Right Lower Extremity: Right Full Weight Bearing Gait Training Does the Patient Walk?: Yes Distance: 75' Walk 10 feet (QC): 5 Walk 50 ft with 2 Turns(QC): 5 Gait Persons Needed: 1 Gait Assistive Device: FWW Wheelchair Training Does the Pt Use a Wheelchair?: Yes Wheel 50 ft with 2 turns (QC): 6 Wheel 150 ft (QC): 6 Type of Wheelchair: Manual Stair Training Stair Training: Handrails/: 1 handrail #of Steps: 4 1 Step (curb) (QC): 4 4 Steps (QC): 4 Stairs: Pattern: Step to Treatments Propels [facility] in hallway then attempts single step (6) in //bars for added confidence. Pt & PT staff discuss possible options for amb. steps (3) at daughters home, giving demonstration as well. Pt able to amb. 1 set of 4 steps using 1 hand rail as well as staff assist (CGA for ascending & Min A for descending). Pt amb in hallway with [facility] following, returning to room. All needs met, call light in hand. Assessment Current Status: Fair Progress Pt is able to complete steps but is very anxious about them. Pt still continues to state he wants to return home ALICE. PT Short Term Goals Short Term Goals Time Frame: Dec 05, 2020 Roll Left & Right: 6 Sit to lyin Lying to sitting on side of be: 6 Sit to stand: 4 Chair/bdp-bo-dmdnt transfer: 4 Walk 10 feet: 4 PT Prison Goals [place] Goals PT Prison Goals Time Frame: Dec 19, 2020 Roll Left & Right (QC): 6 Sit to Lying (QC): 6 Lying-Sitting on Side/Bed(QC): 6 Sit to Stand (QC): 5 Chair/Kur-cv-Xogmj Xfer(QC): 5 Toilet Transfer (QC): 5 Car Transfer (QC): 5 Does the Patient Walk: Yes Walk 10 feet (QC): 4 Walk 50ft with 2 Turns (QC): 4 Walk 150 ft (QC): 88 Walking 10ft on Uneven Surface: 4 1 Step (curb) (QC): 4 4 Steps (QC): 4 12 Steps (QC): 88 Picking up an Object (QC): 4 Wheel 50 feet with 2 turns (QC: 6 Wheel 150 feet: 6 PT Plan Problem List Problem List: Safety Treatment/Plan Treatment Plan: Continue Plan of Care Treatment Plan: Bed Mobility, Education, Functional Activity Jessi, Functional Strength, Group Therapy, Gait, Safety, Therapeutic Exercise, Transfers Treatment Duration: Dec 19, 2020 Frequency: At least 5 of 7 days/Wk (IRF) Estimated Hrs Per Day: 1.5 hours per day Patient and/or Family Agrees t: Yes Safety Risks/Education Patient Education: Steps, Correct Positioning, Safety Issues Teaching Recipient: Patient Teaching Methods: Discussion Response to Teaching: Verbalize Understanding Time/GCodes Time In: 1300 Time Out: 1345 Total Billed Treatment Time: 45 Total Billed Treatment 1, FA x2 (30m) & GT (15m) WHITNEY PALAFOX EQUIPMENT TESTER Dec 03, 2020 16:22
[2020-12-03 20:00] VITALS: BP 130/72
[2020-12-04] MEDS: NYSTATIN ORAL SUSP 5 ML UDC PO SCH ×6 (00:06→23:17)
[2020-12-04] MEDS: inSUlin ASPART (NovoLOG) 1 UNIT/0.01 ML (CHARGE PER UNIT) SC SCH ×7 (06:00→20:39)
[2020-12-04 08:00] VITALS: BP 99/58
[2020-12-04] MEDS: GABAPENTIN 400 MG (NEURONTIN) CAP PO SCH ×3 (09:30→20:43)
[2020-12-04] MEDS: polyethylene glycoL POWDER 17 GM (MIRALAX) PACK PO SCH ×2 (09:30→20:39)
[2020-12-04] MEDS: DOCUSATE SODIUM 100 MG (COLACE) CAP PO SCH ×2 (09:30→20:39)
[2020-12-04] MEDS: metFORMIN 500 MG (GLUCOPHAGE) TAB PO SCH ×2 (09:30→18:13)
[2020-12-04] MEDS: NICOTINE 21 MG (NICODERM) PATCH TD SCH (09:30)
[2020-12-04] MEDS: NICOTINE PATCH REMOVAL TP SCH (09:30)
[2020-12-04] MEDS: PANTOPRAZOLE 40 MG (PROTONIX) TAB PO SCH (09:30)
[2020-12-04] MEDS: SENNA W/DOCUSATE (SENOKOT S) TABLET PO SCH ×2 (09:31→20:39)
--- NOTE | 2020-12-04 10:34 | PM&R Progress Note ---
Subjective HPI/CC On Admission Date Seen by Provider: Dec 04, 2020 Time Seen by Provider: 10:10 Subjective/Events-last exam 12/04/20: Patient doing pretty well No major concerns Wants to go home soon Discharge is planned for Wednesday Constant pain is reported out of proportion to what he appears to be in 12/03/2020: Patient doing pretty well Complains of pain constantly out of proportion Sliding scale a initiated No falls 12/02/2020: Patient doing pretty well Bowels moved yesterday Blood sugar good at 159 Needs double portions 12/01/2020: Patient doing pretty well No significant concerns Changing fentanyl to only given before dressing changes Oxycodone ordered for increased pain if it occurs 11/30/2020: Patient is a very brittle diabetic Feels like he is doing pretty well though Increase in consumption of snacks and junk food and his blood sugars are 366 Ongoing chronic pain issues 11/29/2020: Patient settling in pretty well Very brittle diabetes noted Pain is pretty well controlled No falls Bradycardic and held metoprolol Dr. Carroll makes the dressing changes Hemoglobin A1c is pending but after rounds it came back at 10.3 Review of Systems General: Fatigue Musculoskeletal: leg pain Objective Exam Vital Signs Vital Signs Date Time Temp Pulse Resp B/P (MAP) Pulse Ox O2 Delivery O2 Flow Rate FiO2 12/04/20 20:47 Room Air 12/04/20 20:00 37.3 97 18 120/70 (87) 98 Capillary Refill : General Appearance: No Apparent Distress, WD/WN, Chronically ill, Thin HEENT: PERRL/EOMI, Normal ENT Inspection, Pharynx Normal Neck: Full Range of Motion, Normal Inspection, Non Tender, Supple, Carotid Bruit Respiratory: Chest Non Tender, Lungs Clear, Normal Breath Sounds, No Accessory Muscle Use, No Respiratory Distress Cardiovascular: Regular Rate, Rhythm, No Edema, No Gallop, No JVD, No Murmur, Normal Peripheral Pulses Gastrointestinal: Normal Bowel Sounds, No Organomegaly, No Pulsatile Mass, Non Tender, Soft Back: Normal Inspection, No CVA Tenderness, No Vertebral Tenderness Extremity: Normal Capillary Refill, Normal Inspection, Normal Range of Motion, Non Tender, No Calf Tenderness, No Pedal Edema, Other (Left BKA) Neurologic/Psychiatric: Alert, Oriented x3, No Motor/Sensory Deficits, Normal Mood/Affect, non destructive testing engineer II-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 FIM Transfers Therapy Code Descriptions/Definitions Functional [place] Measure: 0=Not Assessed/NA 4=Minimal Assistance 1=Total Assistance 5=Supervision or Setup 2=Maximal Assistance 6=Modified [place] 3=Moderate Assistance 7=Complete IndependenceSCALE: Activities may be completed with or without assistive devices. 0-Wmhclxsxxb-hkwxhcz completes the activity by him/herself with no assistance from a helper. 5-Set-up or Clean-up Assistance-helper sets up or cleans up; patient completes activity. [place] assists only prior to or following the activity. 4-Supervision or Touching Assistance-helper provides verbal cues and/or touching/steadying and/or contact guard assistance as patient completes activity. Assistance may be provided throughout the activity or intermittently. 3-Partial/Moderate Assistance-helper does LESS THAN HALF the effort. [place] lifts, holds or supports trunk or limbs, but provides less than half the effort. 2-Substantial/Maximal Assistance-helper does MORE THAN HALF the effort. [place] lifts or holds trunk or limbs and provides more than half the effort. 3-Oqxggmwuv-gzikpn does ALL the effort. Patient does none of the effort to complete the activity. Or, the assistance of 2 or more helpers is required for the patient to complete the activity. If activity was not attempted, code reason: 7-Patient Refused. 9-Not Applicable-not attempted and the patient did not perform the activity before the current illness, exacerbation or injury. 10-Not Attempted due to Environmental Limitations-(lack of equipment, weather restraints, etc.). 88-Not Attempted due to Medical Conditions or Safety Concerns. Roll Left to Right (QC): 6 Sit to Lying (QC): 6 Sit to Stand (QC): 5 Chair/Yko-oh-Uvwns Xfer(QC): 4 Car Transfer (QC): 4 Gait Training Does the Patient Walk?: Yes Distance: 75' Walk 10 feet (QC): 5 Walk 50 ft with 2 Turns(QC): 5 Walk 150 ft (QC): 88 Walking 10ft/uneven surface-QC: 88 Gait Persons Needed: 1 Gait Assistive Device: FWW Wheelchair Training Does the Pt Use a Wheelchair?: Yes Distance: 150'x3 Wheel 50 ft with 2 turns (QC): 6 Wheel 150 ft (QC): 6 Type of Wheelchair: Manual Stair Training Stair Training: Handrails/: 1 handrail #of Steps: 4 1 Step (curb) (QC): 4 4 Steps (QC): 4 12 Steps (QC): 88 Stairs: Pattern: Step to Balance Picking up an Object (QC): 88 ADL-Treatment Eating (QC): 6 Oral Hygiene (QC): 6 Shower/Bathe Self (QC): 7 Upper Body Dressing (QC): 7 Lower Body Dressing (QC): 4 (CGA for standing) On/Off Footwear (QC): 7 Toileting Hygiene (QC): 4 (SBA) Toilet Transfer (QC): 4 (SBA) Assessment/Plan Assessment and Plan Assess & Plan/Chief Complaint Assessment: Status post left below the knee amputation Diabetes insulin requiring Chronic pain Status post septic shock Plan: Pain control Discontinue catheter Inpatient rehab protocol Monitor closely 11/29/2020: Brittle diabetes noted with poor control with hemoglobin A1c of over 10 Pain control Dressing changes per Dr. Carroll 11/30/2020: Continue pain management Aggressive therapy Monitor closely 12/01/2020: Monitor blood sugar closely Brittle diabetes noted Pain control 12/02/2020: Double portions Monitor sugar Pain control 12/03/2020: Maintain pain meds Discussed smoking cessation 12/04/2020 Continue current treatment Monitor closely Discharge plan for the first of week (1) Hx of BKA (2) Drug overdose, multiple drugs Status: Acute (3) Amputation stump infection Status: Acute (4) T2DM (type 2 diabetes mellitus) Status: Acute (5) Septic shock Status: Resolved Resolution Date/Time: 11/20/20 @ 10:53 (6) Acute osteomyelitis of left tibia Status: Acute CHIP TAPIA DO Dec 04, 2020 10:34
--- NOTE | 2020-12-04 12:13 | Physical Therapy Daily Note ---
PT Daily Note-Current Subjective Pt R sidelying in bed upon arrival. Pt reports needing pain med before starting tx. Pt agrees to PT. Pain Numeric Pain Scale: 5-Moderate Pain Location: Incisional, Left Location Body Site: Knee Pain Description: Ache Mental Status Patient Orientation: Person, Place, Time, Situation Transfers SCALE: Activities may be completed with or without assistive devices. 8-Pvuzdozejs-uatljwj completes the activity by him/herself with no assistance from a helper. 5-Set-up or Clean-up Assistance-helper sets up or cleans up; patient completes activity. [place] assists only prior to or following the activity. 4-Supervision or Touching Assistance-helper provides verbal cues and/or touching/steadying and/or contact guard assistance as patient completes activity. Assistance may be provided throughout the activity or intermittently. 3-Partial/Moderate Assistance-helper does LESS THAN HALF the effort. [place] lifts, holds or supports trunk or limbs, but provides less than half the effort. 2-Substantial/Maximal Assistance-helper does MORE THAN HALF the effort. [place] lifts or holds trunk or limbs and provides more than half the effort. 8-Mmybbtmxe-dumlxq does ALL the effort. Patient does none of the effort to complete the activity. Or, the assistance of 2 or more helpers is required for the patient to complete the activity. If activity was not attempted, code reason: 7-Patient Refused. 9-Not Applicable-not attempted and the patient did not perform the activity before the current illness, exacerbation or injury. 10-Not Attempted due to Environmental Limitations-(lack of equipment, weather restraints, etc.). 88-Not Attempted due to Medical Conditions or Safety Concerns. Sit to Lying (QC): 5 Lying to Sitting/Side of Bed(Q: 5 Sit to Stand (QC): 5 Weight Bearing Right Lower Extremity: Right Full Weight Bearing Gait Training Does the Patient Walk?: Yes Distance: 75' Walk 10 feet (QC): 4 Walk 50 ft with 2 Turns(QC): 4 Gait Persons Needed: 1 Gait Assistive Device: FWW Wheelchair Training Does the Pt Use a Wheelchair?: Yes Wheel 50 ft with 2 turns (QC): 5 Wheel 150 ft (QC): 5 Type of Wheelchair: Manual Exercises Supine Ex: Quad Set Supine Reps: 15 Seated Therapy Exercises: Ankle pumps, Sit to stand, Long arc quads, Hip flexion Seated Reps: 15 (R side only) Treatments Pt initially refuses tx due to need pain med. Nurse gives med. Pt discusses concern over what is needed to go home. Pt knows Weekly ARU Mtg. is today and wants to return home ALICE. Pt is unsure whether he wants to go home or daughter's house though and what he will need. TF to EOB then SPT to [facility]. Pt propels [facility] in hallway before completing Seated EX. TF to Therapy Mat and lays prone for stretching of R LE. Pt also completes QS in Supine before transferring back to [facility]. Pt ambulates in hallway before returning to room to rest before OT arrives. All needs met, call light in hand. Assessment Current Status: Fair Progress Pt is self limiting at times and preoccupied with when his next pain med will be given even if it has not been long since the last one was taken. PT Short Term Goals Short Term Goals Time Frame: Dec 05, 2020 Roll Left & Right: 6 Sit to lyin Lying to sitting on side of be: 6 Sit to stand: 4 Chair/zck-bg-sxyqr transfer: 4 Walk 10 feet: 4 PT Assisted Goals Tray Casting Machine Operator Goals PT Tray Casting Machine Operator Goals Time Frame: Dec 19, 2020 Roll Left & Right (QC): 6 Sit to Lying (QC): 6 Lying-Sitting on Side/Bed(QC): 6 Sit to Stand (QC): 5 Chair/Gzt-nu-Qwawz Xfer(QC): 5 Toilet Transfer (QC): 5 Car Transfer (QC): 5 Does the Patient Walk: Yes Walk 10 feet (QC): 4 Walk 50ft with 2 Turns (QC): 4 Walk 150 ft (QC): 88 Walking 10ft on Uneven Surface: 4 1 Step (curb) (QC): 4 4 Steps (QC): 4 12 Steps (QC): 88 Picking up an Object (QC): 4 Wheel 50 feet with 2 turns (QC: 6 Wheel 150 feet: 6 PT Plan Problem List Problem List: Safety Treatment/Plan Treatment Plan: Continue Plan of Care Treatment Plan: Bed Mobility, Education, Functional Activity Jessi, Functional Strength, Group Therapy, Gait, Safety, Therapeutic Exercise, Transfers Treatment Duration: Dec 19, 2020 Frequency: At least 5 of 7 days/Wk (IRF) Estimated Hrs Per Day: 1.5 hours per day Patient and/or Family Agrees t: Yes Safety Risks/Education Patient Education: Gait Training, Safety Issues Teaching Recipient: Patient Teaching Methods: Discussion Response to Teaching: Reinforcement Needed Time/GCodes Time In: 1000 Time Out: 1100 Total Billed Treatment Time: 60 Total Billed Treatment 1, FA x2 (30m) & EX x2 (30m) WHITNEY [place]AFOX VIDEO AND SOUND RECORDER Dec 04, 2020 12:13
--- NOTE | 2020-12-04 13:08 | Occupational Ther Daily Note ---
OT Current Status-Daily Note Subjective Pt seen in room, up in w/c, agreeable to OT. Pt mentioned that he had R LE pain but did not rate or describe it. He knew when his next pain meds were due. Appearance Alert, cooperative ADL-Treatment At end of tx, pt needed to toilet. Propelled w/c to room, then set it up for toilet transfer. He locked brakes without cues. Completed toilet transfer, hygiene and clothing management with SBA, using grab bar. Pt left up in w/c, all needs met. Therapy Code Descriptions/Definitions Functional [place] Measure: 0=Not Assessed/NA 4=Minimal Assistance 1=Total Assistance 5=Supervision or Setup 2=Maximal Assistance 6=Modified [place] 3=Moderate Assistance 7=Complete IndependenceSCALE: Activities may be completed with or without assistive devices. 0-Fqjpmsccdv-dbfqrvc completes the activity by him/herself with no assistance from a helper. 5-Set-up or Clean-up Assistance-helper sets up or cleans up; patient completes activity. [place] assists only prior to or following the activity. 4-Supervision or Touching Assistance-helper provides verbal cues and/or touching/steadying and/or contact guard assistance as patient completes activity. Assistance may be provided throughout the activity or intermittently. 3-Partial/Moderate Assistance-helper does LESS THAN HALF the effort. [place] lifts, holds or supports trunk or limbs, but provides less than half the effort. 2-Substantial/Maximal Assistance-helper does MORE THAN HALF the effort. [place] lifts or holds trunk or limbs and provides more than half the effort. 8-Dszjcysxe-xzzvbr does ALL the effort. Patient does none of the effort to complete the activity. Or, the assistance of 2 or more helpers is required for the patient to complete the activity. If activity was not attempted, code reason: 7-Patient Refused. 9-Not Applicable-not attempted and the patient did not perform the activity before the current illness, exacerbation or injury. 10-Not Attempted due to Environmental Limitations-(lack of equipment, weather restraints, etc.). 88-Not Attempted due to Medical Conditions or Safety Concerns. Other Treatment Pt propelled w/c to gym, taking a longer route and using arms to propel w/c, for strengthening. OT switched arms on w/c to desk arms, with pt education on purpose - he was able to get closer to tasks on table top. Pt completed 12 minutes bilat UE exercise on arm bike set at 25W (an increase in resistance), with one brief recovery break. For strengthening arms as needed for standing during ADLs and transfers. Pt discussed discharge plans and would like to be discharged this week. Education OT Patient Education: Progress toward Goal/Update tx plan, Purpose of tx/fu nctional activities, Transfer techniques Teaching Recipient: Patient Teaching Methods: Discussion Response to Teaching: Verbalize Understanding OT Short Term Goals Short Term Goals Time Frame: Dec 05, 2020 Eatin Oral hygiene: 6 Toileting hygiene: 4 Shower/bathe self: 4 Upper body dressin Lower body dressin Putting on/taking off footwear: 4 OT Shelter Goals Shelter Goals Time Frame: Dec 19, 2020 Eating (QC): 6 Oral Hygiene (QC): 6 Toileting Hygiene (QC): 6 Shower/Bathe Self (QC): 4 Upper Body Dressing (QC): 6 Lower Body Dressing (QC): 6 On/Off Footwear (QC): 6 Additional Goals: 1-Demonstrate ADL Tasks, 2-Verbalize Understanding, 3-ImproveStrength/Jessi 1=Demonstrate adherence to instructed precautions during ADL tasks. 2=Patient will verbalize/demonstrate understanding of assistive devices/modifications for ADL. 3=Patient will improve strength/tolerance for activity to enable patient to perform ADL's. OT Education/Plan Discharge Recommendations Plan/Recommendations: Continue POC Treatment Plan/Plan of Care Patient would benefit from OT for education, treatment and training to promote independence in ADL's, mobility, safety and/or upper extremity function for ADL's. Plan of Care: ADL Retraining, Functional Mobility, UE Funct Exercise/Act Treatment Duration: Dec 19, 2020 Frequency: At least 5 of 7 days/Wk (IRF) Estimated Hrs Per Day: 1.5 hours per day Agreement: Yes Rehab Potential: Fair Time/GCodes Start Time: 11:00 Stop Time: 12:00 Total Time Billed (hr/min): 60 Billed Treatment Time visit, 15 minutes ADL, 45 minutes exercise ALCON FAIR OT Dec 04, 2020 13:08
--- NOTE | 2020-12-04 14:22 | Occupational Ther Daily Note ---
OT Current Status-Daily Note Subjective No pain reported. Appearance Pt. in bed. Alert and agreeable to work with OT. Mental Status/Objective Patient Orientation: Person, Place, Time, Situation ADL-Treatment Therapy Code Descriptions/Definitions Functional [place] Measure: 0=Not Assessed/NA 4=Minimal Assistance 1=Total Assistance 5=Supervision or Setup 2=Maximal Assistance 6=Modified [place] 3=Moderate Assistance 7=Complete IndependenceSCALE: Activities may be completed with or without assistive devices. 6-Wymhskkgnb-ikxtgev completes the activity by him/herself with no assistance from a helper. 5-Set-up or Clean-up Assistance-helper sets up or cleans up; patient completes activity. [place] assists only prior to or following the activity. 4-Supervision or Touching Assistance-helper provides verbal cues and/or touching/steadying and/or contact guard assistance as patient completes activity. Assistance may be provided throughout the activity or intermittently. 3-Partial/Moderate Assistance-helper does LESS THAN HALF the effort. [place] lifts, holds or supports trunk or limbs, but provides less than half the effort. 2-Substantial/Maximal Assistance-helper does MORE THAN HALF the effort. [place] lifts or holds trunk or limbs and provides more than half the effort. 8-Ynscdmvzp-asdygz does ALL the effort. Patient does none of the effort to complete the activity. Or, the assistance of 2 or more helpers is required for the patient to complete the activity. If activity was not attempted, code reason: 7-Patient Refused. 9-Not Applicable-not attempted and the patient did not perform the activity before the current illness, exacerbation or injury. 10-Not Attempted due to Environmental Limitations-(lack of equipment, weather restraints, etc.). 88-Not Attempted due to Medical Conditions or Safety Concerns. Other Treatment Pt. supine in bed. Transfers supine-sit with Mod I. Pt. completes 3 bilateral UE x 15 reps, x 2 sets each with red theraband in all planes for continued UE strengthening. Pt. requires rest breaks after 3 exercises. Pt. also wrapped red theraband around legs, and pt. completed abduction exercises x 15 reps as well. Tolerated treatment. Transferred sit-supine with Mod I. All needs met. Education OT Patient Education: Correct positioning, Progress toward Goal/Update tx plan, Purpose of tx/functional activities, Reviewed precautions, Rehab process, Transf er techniques Teaching Recipient: Patient Teaching Methods: Demonstration, Discussion Response to Teaching: Verbalize Understanding, Return Demonstration OT Short Term Goals Short Term Goals Time Frame: Dec 05, 2020 Eatin Oral hygiene: 6 Toileting hygiene: 4 Shower/bathe self: 4 Upper body dressin Lower body dressin Putting on/taking off footwear: 4 OT [place] Goals Jail Goals Time Frame: Dec 19, 2020 Eating (QC): 6 Oral Hygiene (QC): 6 Toileting Hygiene (QC): 6 Shower/Bathe Self (QC): 4 Upper Body Dressing (QC): 6 Lower Body Dressing (QC): 6 On/Off Footwear (QC): 6 Additional Goals: 1-Demonstrate ADL Tasks, 2-Verbalize Understanding, 3- ImproveStrength/Jessi 1=Demonstrate adherence to instructed precautions during ADL tasks. 2=Patient will verbalize/demonstrate understanding of assistive devices/modifications for ADL. 3=Patient will improve strength/tolerance for activity to enable patient to perform ADL's. OT Education/Plan Discharge Recommendations Plan/Recommendations: Continue POC Treatment Plan/Plan of Care Treatment,Training & Education: Yes Patient would benefit from OT for education, treatment and training to promote independence in ADL's, mobility, safety and/or upper extremity function for ADL's. Plan of Care: ADL Retraining, Functional Mobility, UE Funct Exercise/Act Treatment Duration: Dec 19, 2020 Frequency: At least 5 of 7 days/Wk (IRF) Estimated Hrs Per Day: 1.5 hours per day Agreement: Yes Rehab Potential: Fair Time/GCodes Start Time: 13:00 Stop Time: 13:30 Total Time Billed (hr/min): 30 Billed Treatment Time 1, Ex x 2 EVELIA FOX OT Dec 04, 2020 14:22
--- NOTE | 2020-12-04 14:31 | Physical Therapy Daily Note ---
PT Daily Note-Current Subjective Patient in bed pre tx, agrees to PT, has 10/10 pain in left leg, nurse notified. Appearance Patient in WC at bedside post tx with nurse call, phone, tray, all needs met. Mental Status Patient Orientation: Person, Place, Situation Transfers SCALE: Activities may be completed with or without assistive devices. 0-Qvsucbzwvy-fujqupe completes the activity by him/herself with no assistance from a helper. 5-Set-up or Clean-up Assistance-helper sets up or cleans up; patient completes activity. [place] assists only prior to or following the activity. 4-Supervision or Touching Assistance-helper provides verbal cues and/or touching/steadying and/or contact guard assistance as patient completes activity. Assistance may be provided throughout the activity or intermittently. 3-Partial/Moderate Assistance-helper does LESS THAN HALF the effort. [place] lifts, holds or supports trunk or limbs, but provides less than half the effort. 2-Substantial/Maximal Assistance-helper does MORE THAN HALF the effort. [place] lifts or holds trunk or limbs and provides more than half the effort. 7-Ggwzvxcpk-lediyv does ALL the effort. Patient does none of the effort to complete the activity. Or, the assistance of 2 or more helpers is required for the patient to complete the activity. If activity was not attempted, code reason: 7-Patient Refused. 9-Not Applicable-not attempted and the patient did not perform the activity before the current illness, exacerbation or injury. 10-Not Attempted due to Environmental Limitations-(lack of equipment, weather restraints, etc.). 88-Not Attempted due to Medical Conditions or Safety Concerns. Roll Left & Right (QC): 6 Sit to Lying (QC): 6 Lying to Sitting/Side of Bed(Q: 6 Chair/Emc-mt-Qvxgw Xfer(QC): 5 Weight Bearing Right Lower Extremity: Right Full Weight Bearing Wheelchair Training Does the Pt Use a Wheelchair?: Yes Wheel 50 ft with 2 turns (QC): 6 Wheel 150 ft (QC): 6 Type of Wheelchair: Manual 150'x2 Exercises Supine Ex: Straight leg raise Supine Reps: 20 (LLE) supine left knee extension stretch 5 min, prone left hip flexor stretch 5 min, sidelying hip abduction x20 Treatments bed mobility and transfers, stretching, ROM Assessment Current Status: Fair Progress improving transfers PT Short Term Goals Short Term Goals Time Frame: Dec 05, 2020 Roll Left & Right: 6 Sit to lyin Lying to sitting on side of be: 6 Sit to stand: 4 Chair/hyg-am-hrrzo transfer: 4 Walk 10 feet: 4 PT Prison Goals Prison Goals PT Prison Goals Time Frame: Dec 19, 2020 Roll Left & Right (QC): 6 Sit to Lying (QC): 6 Lying-Sitting on Side/Bed(QC): 6 Sit to Stand (QC): 5 Chair/Xby-jn-Fbnuc Xfer(QC): 5 Toilet Transfer (QC): 5 Car Transfer (QC): 5 Does the Patient Walk: Yes Walk 10 feet (QC): 4 Walk 50ft with 2 Turns (QC): 4 Walk 150 ft (QC): 88 Walking 10ft on Uneven Surface: 4 1 Step (curb) (QC): 4 4 Steps (QC): 4 12 Steps (QC): 88 Picking up an Object (QC): 4 Wheel 50 feet with 2 turns (QC: 6 Wheel 150 feet: 6 PT Plan Problem List Problem List: Activity Tolerance, Functional Strength, Safety, Balance, Gait, Transfer, Bed Mobility, ROM Treatment/Plan Treatment Plan: Continue Plan of Care Treatment Plan: Bed Mobility, Education, Functional Activity Jessi, Functional Strength, Group Therapy, Gait, Safety, Therapeutic Exercise, Transfers Treatment Duration: Dec 19, 2020 Frequency: At least 5 of 7 days/Wk (IRF) Estimated Hrs Per Day: 1.5 hours per day Patient and/or Family Agrees t: Yes Safety Risks/Education Patient Education: Transfer Techniques, Correct Positioning, W/C Management, Safety Issues Teaching Recipient: Patient Teaching Methods: Demonstration, Discussion Response to Teaching: Reinforcement Needed Patient doesn't like to lay on his stomach to stretch hip flexors, discussed the importance of having good ROM for prosthesis Time/GCodes Time In: 1400 Time Out: 1430 Total Billed Treatment Time: 30 Total Billed Treatment 1 visit EX 15' FA 15' ITALO ESPINAL PT Dec 04, 2020 14:31
[2020-12-04] MEDS: ENOXAPARIN 40 MG/0.4 ML (LOVENOX) SYR SC SCH (16:33)
[2020-12-04] MEDS: fentaNYL INJ 100 MCG/2 ML AMP IVP PRN (16:33)
[2020-12-04 20:00] VITALS: BP 120/70
[2020-12-04] MEDS: LOPERAMIDE 2 MG (IMODIUM) TABLET PO PRN (20:43)
[2020-12-05] MEDS: NYSTATIN ORAL SUSP 5 ML UDC PO SCH ×3 (05:51→18:11)
[2020-12-05] MEDS: inSUlin ASPART (NovoLOG) 1 UNIT/0.01 ML (CHARGE PER UNIT) SC SCH ×7 (05:54→20:30)
[2020-12-05 08:00] VITALS: BP 105/58
[2020-12-05] MEDS: NICOTINE PATCH REMOVAL TP SCH (08:11)
[2020-12-05] MEDS: NICOTINE 21 MG (NICODERM) PATCH TD SCH (08:11)
[2020-12-05] MEDS: PANTOPRAZOLE 40 MG (PROTONIX) TAB PO SCH (08:12)
[2020-12-05] MEDS: metFORMIN 500 MG (GLUCOPHAGE) TAB PO SCH ×2 (08:12→18:11)
[2020-12-05] MEDS: GABAPENTIN 400 MG (NEURONTIN) CAP PO SCH ×3 (08:12→21:17)
[2020-12-05] MEDS: polyethylene glycoL POWDER 17 GM (MIRALAX) PACK PO SCH ×2 (08:13→21:15)
[2020-12-05] MEDS: DOCUSATE SODIUM 100 MG (COLACE) CAP PO SCH ×2 (08:13→21:15)
[2020-12-05] MEDS: SENNA W/DOCUSATE (SENOKOT S) TABLET PO SCH ×2 (08:13→21:15)
[2020-12-05] MEDS: fentaNYL INJ 100 MCG/2 ML AMP IVP PRN (10:30)
--- NOTE | 2020-12-05 11:11 | Occupational Ther Daily Note ---
OT Current Status-Daily Note Subjective Pt seen in room, up in bed, agreeable to OT. Pain not mentioned. Appearance Alert, cooperative Mental Status/Objective Attachments: [place] ADL-Treatment Pt reported that he had been up several times during the night with bowel p roblems and agreed to shower. L lower leg dressing covered in plastic, as well as IV site. Pt transferred to w/ after setup. Propelled chair to bathroom and positioned w/c after education, locked brakes without cues. SPT to shower bench with SBA, using grab bars. He washed and dried all parts after setup, using hand held shower, grab bars. stood to dry bottom with SBA, using grab bars. SPT back to w/c. Undressed in bed and on shower bench without help and dressed upper body setup after shower. Pt's dressing on bottom fell off during shower so he propelled w/c to bed, locked brakes and transferred into bed without help. After dressing change, he put on pants and sock with setup, SBA to stand to pull pants up. He impulsively stood without his walker, holding on to bed rail but turning both hands loose to pull up pants. He realized that he should have had his walker in front of him for stability. Pt left up in bed, encouraged to offset weight from his bottom. All needs met. Therapy Code Descriptions/Definitions Functional [place] Measure: 0=Not Assessed/NA 4=Minimal Assistance 1=Total Assistance 5=Supervision or Setup 2=Maximal Assistance 6=Modified [place] 3=Moderate Assistance 7=Complete IndependenceSCALE: Activities may be completed with or without assistive devices. 6-Dydsqzxmwf-ftbhgiz completes the activity by him/herself with no assistance from a helper. 5-Set-up or Clean-up Assistance-helper sets up or cleans up; patient completes activity. [place] assists only prior to or following the activity. 4-Supervision or Touching Assistance-helper provides verbal cues and/or touching/steadying and/or contact guard assistance as patient completes acti vity. Assistance may be provided throughout the activity or intermittently. 3-Partial/Moderate Assistance-helper does LESS THAN HALF the effort. [place] lifts, holds or supports trunk or limbs, but provides less than half the effort. 2-Substantial/Maximal Assistance-helper does MORE THAN HALF the effort. [place] lifts or holds trunk or limbs and provides more than half the effort. 6-Osopuurqj-dprhxh does ALL the effort. Patient does none of the effort to complete the activity. Or, the assistance of 2 or more helpers is required for the patient to complete the activity. If activity was not attempted, code reason: 7-Patient Refused. 9-Not Applicable-not attempted and the patient did not perform the activity before the current illness, exacerbation or injury. 10-Not Attempted due to Environmental Limitations-(lack of equipment, weather restraints, etc.). 88-Not Attempted due to Medical Conditions or Safety Concerns. Shower/Bathe Self (QC): 4 (setup for bathing, SBA drying bottom) Upper Body Dressing (QC): 5 (setup) Lower Body Dressing (QC): 4 (SBA) On/Off Footwear: 5 (setup) Education OT Patient Education: Modified ADL techniques, Progress toward Goal/Update tx plan, Purpose of tx/functional activities, Safety issues, Transfer techniques Teaching Recipient: Patient Teaching Methods: Discussion Response to Teaching: Verbalize Understanding, Return Demonstration, Reinforcement Needed OT Short Term Goals Short Term Goals Time Frame: Dec 05, 2020 Eatin Oral hygiene: 6 Toileting hygiene: 4 Shower/bathe self: 4 Upper body dressin Lower body dressin Putting on/taking off footwear: 4 OT Usp Goals [employer] Information Clerk Goals Time Frame: Dec 19, 2020 Eating (QC): 6 Oral Hygiene (QC): 6 Toileting Hygiene (QC): 6 Shower/Bathe Self (QC): 4 Upper Body Dressing (QC): 6 Lower Body Dressing (QC): 6 On/Off Footwear (QC): 6 Additional Goals: 1-Demonstrate ADL Tasks, 2-Verbalize Understanding, 3- ImproveStrength/Jessi 1=Demonstrate adherence to instructed precautions during ADL tasks. 2=Patient will verbalize/demonstrate understanding of assistive d evices/modifications for ADL. 3=Patient will improve strength/tolerance for activity to enable patient to perform ADL's. OT Education/Plan Discharge Recommendations Plan/Recommendations: Continue POC Treatment Plan/Plan of Care Patient would benefit from OT for education, treatment and training to promote independence in ADL's, mobility, safety and/or upper extremity function for ADL's. Plan of Care: ADL Retraining, Functional Mobility, UE Funct Exercise/Act Treatment Duration: Dec 19, 2020 Frequency: At least 5 of 7 days/Wk (IRF) Estimated Hrs Per Day: 1.5 hours per day Agreement: Yes Rehab Potential: Fair Time/GCodes Start Time: 08:29 Stop Time: 09:30 Total Time Billed (hr/min): 61 Billed Treatment Time visit, 61 minutes ADL ALCON FAIR OT Dec 05, 2020 11:11
--- NOTE | 2020-12-05 11:13 | PM&R Progress Note ---
Subjective HPI/CC On Admission Date Seen by Provider: Dec 05, 2020 Time Seen by Provider: 11:15 Subjective/Events-last exam 12/05/2020: Patient doing pretty well Redness around the wound so Dr. Carroll started Keflex Very impulsive Discharge plan for Wednesday Nicotine patch is helpful Loose stools holding laxatives 12/04/20: Patient doing pretty well No major concerns Wants to go home soon Discharge is planned for Wednesday Constant pain is reported out of proportion to what he appears to be in 12/03/2020: Patient doing pretty well Complains of pain constantly out of proportion Sliding scale a initiated No falls 12/02/2020: Patient doing pretty well Bowels moved yesterday Blood sugar good at 159 Needs double portions 12/01/2020: Patient doing pretty well No significant concerns Changing fentanyl to only given before dressing changes Oxycodone ordered for increased pain if it occurs 11/30/2020: Patient is a very brittle diabetic Feels like he is doing pretty well though Increase in consumption of snacks and junk food and his blood sugars are 366 Ongoing chronic pain issues 11/29/2020: Patient settling in pretty well Very brittle diabetes noted Pain is pretty well controlled No falls Bradycardic and held metoprolol Dr. Carroll makes the dressing changes Hemoglobin A1c is pending but after rounds it came back at 10.3 Review of Systems General: Fatigue, Malaise Musculoskeletal: leg pain Neurological: Weakness Objective Exam Vital Signs Vital Signs Date Time Temp Pulse Resp B/P (MAP) Pulse Ox O2 Delivery O2 Flow Rate FiO2 12/05/20 21:15 Room Air 12/05/20 20:00 37.0 84 20 91/51 (64) 96 Capillary Refill : General Appearance: No Apparent Distress, WD/WN, Chronically ill, Thin HEENT: PERRL/EOMI, Normal ENT Inspection, Pharynx Normal Neck: Full Range of Motion, Normal Inspection, Non Tender, Supple, Carotid Bruit Respiratory: Chest Non Tender, Lungs Clear, Normal Breath Sounds, No Accessory Muscle Use, No Respiratory Distress Cardiovascular: Regular Rate, Rhythm, No Edema, No Gallop, No JVD, No Murmur, Normal Peripheral Pulses Gastrointestinal: Normal Bowel Sounds, No Organomegaly, No Pulsatile Mass, Non Tender, Soft Back: Normal Inspection, No CVA Tenderness, No Vertebral Tenderness Extremity: Normal Capillary Refill, Normal Inspection, Normal Range of Motion, Non Tender, No Calf Tenderness, No Pedal Edema, Other (Left BKA) Neurologic/Psychiatric: Alert, Oriented x3, No Motor/Sensory Deficits, Normal Mood/Affect, medical aide II-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 FIM Transfers Therapy Code Descriptions/Definitions Functional [place] Measure: 0=Not Assessed/NA 4=Minimal Assistance 1=Total Assistance 5=Supervision or Setup 2=Maximal Assistance 6=Modified [place] 3=Moderate Assistance 7=Complete IndependenceSCALE: Activities may be completed with or without assistive devices. 9-Msvtiovapy-orvoxnx completes the activity by him/herself with no assistance from a helper. 5-Set-up or Clean-up Assistance-helper sets up or cleans up; patient completes activity. [place] assists only prior to or following the activity. 4-Supervision or Touching Assistance-helper provides verbal cues and/or touching/steadying and/or contact guard assistance as patient completes activity. Assistance may be provided throughout the activity or intermittently. 3-Partial/Moderate Assistance-helper does LESS THAN HALF the effort. [place] lifts, holds or supports trunk or limbs, but provides less than half the effort. 2-Substantial/Maximal Assistance-helper does MORE THAN HALF the effort. [place] lifts or holds trunk or limbs and provides more than half the effort. 1-Ktfucdkco-kxuekl does ALL the effort. Patient does none of the effort to complete the activity. Or, the assistance of 2 or more helpers is required for the patient to complete the activity. If activity was not attempted, code reason: 7-Patient Refused. 9-Not Applicable-not attempted and the patient did not perform the activity before the current illness, exacerbation or injury. 10-Not Attempted due to Environmental Limitations-(lack of equipment, weather restraints, etc.). 88-Not Attempted due to Medical Conditions or Safety Concerns. Roll Left to Right (QC): 6 Sit to Lying (QC): 5 Sit to Stand (QC): 5 Chair/Mbk-vk-Tnjdy Xfer(QC): 5 Car Transfer (QC): 4 Gait Training Does the Patient Walk?: Yes Distance: 75' Walk 10 feet (QC): 4 Walk 50 ft with 2 Turns(QC): 4 Walk 150 ft (QC): 88 Walking 10ft/uneven surface-QC: 88 Gait Persons Needed: 1 Gait Assistive Device: FWW Wheelchair Training Does the Pt Use a Wheelchair?: Yes Distance: 150'x3 Wheel 50 ft with 2 turns (QC): 5 Wheel 150 ft (QC): 5 Type of Wheelchair: Manual Stair Training Stair Training: Handrails/: 1 handrail #of Steps: 4 1 Step (curb) (QC): 4 4 Steps (QC): 4 12 Steps (QC): 88 Stairs: Pattern: Step to Balance Picking up an Object (QC): 88 ADL-Treatment Eating (QC): 6 Oral Hygiene (QC): 6 Shower/Bathe Self (QC): 7 Upper Body Dressing (QC): 7 Lower Body Dressing (QC): 4 (CGA for standing) On/Off Footwear (QC): 7 Toileting Hygiene (QC): 4 (SBA) Toilet Transfer (QC): 4 (SBA) Assessment/Plan Assessment and Plan Assess & Plan/Chief Complaint Assessment: Status post left below the knee amputation Diabetes insulin requiring Chronic pain Status post septic shock Plan: Pain control Discontinue catheter Inpatient rehab protocol Monitor closely 11/29/2020: Brittle diabetes noted with poor control with hemoglobin A1c of over 10 Pain control Dressing changes per Dr. Carroll 11/30/2020: Continue pain management Aggressive therapy Monitor closely 12/01/2020: Monitor blood sugar closely Brittle diabetes noted Pain control 12/02/2020: Double portions Monitor sugar Pain control 12/03/2020: Maintain pain meds Discussed smoking cessation 12/04/2020 Continue current treatment Monitor closely Discharge plan for the first of week 12/05/2020: Pain management Adjust insulin but brittle diabetes is chronic (1) Hx of BKA (2) Drug overdose, multiple drugs Status: Acute (3) Amputation stump infection Status: Acute (4) T2DM (type 2 diabetes mellitus) Status: Acute (5) Septic shock Status: Resolved Resolution Date/Time: 11/20/20 @ 10:53 (6) Acute osteomyelitis of left tibia Status: Acute CHIP TAPIA DO Dec 05, 2020 11:13
[2020-12-05] MEDS: CEPHALEXIN 250 MG (KEFLEX) CAP PO SCH ×2 (12:10→21:17)
--- NOTE | 2020-12-05 12:49 | Occupational Ther Daily Note ---
OT Current Status-Daily Note Subjective Pt seen in gym, after PT, agreeable to OT. No pain reported. Appearance Alert, cooperative ADL-Treatment Therapy Code Descriptions/Definitions Functional [place] Measure: 0=Not Assessed/NA 4=Minimal Assistance 1=Total Assistance 5=Supervision or Setup 2=Maximal Assistance 6=Modified [place] 3=Moderate Assistance 7=Complete IndependenceSCALE: Activities may be completed with or without assistive devices. 2-Zhgojivzsm-rfemydc completes the activity by him/herself with no assistance from a helper. 5-Set-up or Clean-up Assistance-helper sets up or cleans up; patient completes activity. [place] assists only prior to or following the activity. 4-Supervision or Touching Assistance-helper provides verbal cues and/or touching/steadying and/or contact guard assistance as patient completes activity. Assistance may be provided throughout the activity or intermittently. 3-Partial/Moderate Assistance-helper does LESS THAN HALF the effort. [place] lifts, holds or supports trunk or limbs, but provides less than half the effort. 2-Substantial/Maximal Assistance-helper does MORE THAN HALF the effort. [place] lifts or holds trunk or limbs and provides more than half the effort. 5-Hhydrdouc-wgxnnb does ALL the effort. Patient does none of the effort to complete the activity. Or, the assistance of 2 or more helpers is required for the patient to complete the activity. If activity was not attempted, code reason: 7-Patient Refused. 9-Not Applicable-not attempted and the patient did not perform the activity before the current illness, exacerbation or injury. 10-Not Attempted due to Environmental Limitations-(lack of equipment, weather restraints, etc.). 88-Not Attempted due to Medical Conditions or Safety Concerns. Other Treatment Pt reported that he could tell that he needed to work on his arm strength when he walked with his walker. He positioned w/c at table and recalled to lock brakes, with cue. He completed 13 minutes bilat UE exercise on arm bike set at 25W resistance, an increase in time. He took a brief break to do some shoulder and neck stretches, reporting that his neck felt tight. He was more comfortable after stretching. Pt also completed bilat UE exercises with exercise bar with additional 3# weight (total 4.5#), completing 15 repetitions each exercise. All exercise to help strengthen arms as needed for standing during ADLs and functional mobility. Pt propelled w/c back to room and positioned himself for lunch, remembering to lcok brakes. Pt left up in chair, all needs met. Education OT Patient Education: Exercise program, Progress toward Goal/Update tx plan, Purpose of tx/functional activities, Safety issues Teaching Recipient: Patient Teaching Methods: Discussion Response to Teaching: Verbalize Understanding, Return Demonstration OT Short Term Goals Short Term Goals Time Frame: Dec 05, 2020 Eatin Oral hygiene: 6 Toileting hygiene: 4 Shower/bathe self: 4 Upper body dressin Lower body dressin Putting on/taking off footwear: 4 OT Poultry Eviscerator Goals Care Home Goals Time Frame: Dec 19, 2020 Eating (QC): 6 Oral Hygiene (QC): 6 Toileting Hygiene (QC): 6 Shower/Bathe Self (QC): 4 Upper Body Dressing (QC): 6 Lower Body Dressing (QC): 6 On/Off Footwear (QC): 6 Additional Goals: 1-Demonstrate ADL Tasks, 2-Verbalize Understanding, 3- ImproveStrength/Jessi 1=Demonstrate adherence to instructed precautions during ADL tasks. 2=Patient will verbalize/demonstrate understanding of assistive devices/reina fications for ADL. 3=Patient will improve strength/tolerance for activity to enable patient to perform ADL's. OT Education/Plan Discharge Recommendations Plan/Recommendations: Continue POC Treatment Plan/Plan of Care Patient would benefit from OT for education, treatment and training to promote independence in ADL's, mobility, safety and/or upper extremity function for ADL's. Plan of Care: ADL Retraining, Functional Mobility, UE Funct Exercise/Act Treatment Duration: Dec 19, 2020 Frequency: At least 5 of 7 days/Wk (IRF) Estimated Hrs Per Day: 1.5 hours per day Agreement: Yes Rehab Potential: Fair Time/GCodes Start Time: 11:15 Stop Time: 11:45 Total Time Billed (hr/min): 30 Billed Treatment Time visit, 30 minutes exercise ALCON FAIR OT Dec 05, 2020 12:49
--- NOTE | 2020-12-05 14:54 | Physical Therapy Daily Note ---
PT Daily Note-Current Subjective [id number]: Pt sitting at EOB upon arrival. Pt awaiting pain med before starting tx. Nurse arrives and gives pain med. [id number]: Pt sitting in [facility] in room upon arrival. Pt agrees to PT. Mental Status Patient Orientation: Person, Place, Situation Transfers SCALE: Activities may be completed with or without assistive devices. 8-Ctspvbqpes-ytoflrb completes the activity by him/herself with no assistance from a helper. 5-Set-up or Clean-up Assistance-helper sets up or cleans up; patient completes activity. [place] assists only prior to or following the activity. 4-Supervision or Touching Assistance-helper provides verbal cues and/or touching/steadying and/or contact guard assistance as patient completes activity. Assistance may be provided throughout the activity or intermittently. 3-Partial/Moderate Assistance-helper does LESS THAN HALF the effort. [place] lifts, holds or supports trunk or limbs, but provides less than half the effort. 2-Substantial/Maximal Assistance-helper does MORE THAN HALF the effort. [place] lifts or holds trunk or limbs and provides more than half the effort. 8-Kddhehfay-gxseey does ALL the effort. Patient does none of the effort to complete the activity. Or, the assistance of 2 or more helpers is required for the patient to complete the activity. If activity was not attempted, code reason: 7-Patient Refused. 9-Not Applicable-not attempted and the patient did not perform the activity before the current illness, exacerbation or injury. 10-Not Attempted due to Environmental Limitations-(lack of equipment, weather restraints, etc.). 88-Not Attempted due to Medical Conditions or Safety Concerns. Sit to Stand (QC): 5 Weight Bearing Right Lower Extremity: Right Full Weight Bearing Gait Training Does the Patient Walk?: Yes Distance: 150' Walk 10 feet (QC): 4 Walk 50 ft with 2 Turns(QC): 4 Walk 150 ft (QC): 4 Gait Persons Needed: 1 Gait Assistive Device: FWW Wheelchair Training Does the Pt Use a Wheelchair?: Yes Wheel 50 ft with 2 turns (QC): 5 Wheel 150 ft (QC): 5 Type of Wheelchair: Manual Exercises NuStep Minutes: 15 NuStep Workload: 6 Treatments [id number]: TF to standing and amb. in hallway and to Therapy Gym. Pt uses NuStep before taking RB. Pt amb. back to room at end of tx, rests in [facility] with all needs met, call light in hand. [id number]: Pt propel [facility] in hallway and on main floor of hospital. Pt practices improved control ascending and descending ramp in [facility]. Pt returns to room to rest at end of tx with all needs met, call light in hand. Assessment Current Status: Good Progress Pt needs redirection at times to stay on task and encouragement as he feels he can't complete tasks as well as he can complete them. PT Short Term Goals Short Term Goals Time Frame: Dec 05, 2020 Roll Left & Right: 6 Sit to lyin Lying to sitting on side of be: 6 Sit to stand: 4 Chair/igf-ac-bwdpg transfer: 4 Walk 10 feet: 4 PT Bridal Gown Fitter Goals Residential Goals PT Bridal Gown Fitter Goals Time Frame: Dec 19, 2020 Roll Left & Right (QC): 6 Sit to Lying (QC): 6 Lying-Sitting on Side/Bed(QC): 6 Sit to Stand (QC): 5 Chair/Ggd-xa-Sqwnd Xfer(QC): 5 Toilet Transfer (QC): 5 Car Transfer (QC): 5 Does the Patient Walk: Yes Walk 10 feet (QC): 4 Walk 50ft with 2 Turns (QC): 4 Walk 150 ft (QC): 88 Walking 10ft on Uneven Surface: 4 1 Step (curb) (QC): 4 4 Steps (QC): 4 12 Steps (QC): 88 Picking up an Object (QC): 4 Wheel 50 feet with 2 turns (QC: 6 Wheel 150 feet: 6 PT Plan Problem List Problem List: Safety Treatment/Plan Treatment Plan: Continue Plan of Care Treatment Plan: Bed Mobility, Education, Functional Activity Jessi, Functional Strength, Group Therapy, Gait, Safety, Therapeutic Exercise, Transfers Treatment Duration: Dec 19, 2020 Frequency: At least 5 of 7 days/Wk (IRF) Estimated Hrs Per Day: 1.5 hours per day Patient and/or Family Agrees t: Yes Safety Risks/Education Patient Education: Gait Training, Correct Positioning, Safety Issues Teaching Recipient: Patient Teaching Methods: Discussion Response to Teaching: Verbalize Understanding Time/GCodes Time In: 1015 Time Out: 1115 Total Billed Treatment Time: 60 Total Billed Treatment [id number]: 1, GT (20m), EX x2 (30m) & FA (10m) [id number]: 1, WCH (20m) & FA (10m) WHITNEY PALAFOX FURNACE BRAZER Dec 05, 2020 14:54
[2020-12-05] MEDS: ENOXAPARIN 40 MG/0.4 ML (LOVENOX) SYR SC SCH (16:59)
[2020-12-05 20:00] VITALS: BP 91/51
[2020-12-06] MEDS: LOPERAMIDE 2 MG (IMODIUM) TABLET PO PRN ×2 (00:33→08:37)
[2020-12-06] MEDS: NYSTATIN ORAL SUSP 5 ML UDC PO SCH ×4 (00:33→18:06)
[2020-12-06] MEDS: inSUlin ASPART (NovoLOG) 1 UNIT/0.01 ML (CHARGE PER UNIT) SC SCH ×8 (05:22→21:00)
--- NOTE | 2020-12-06 06:18 | PM&R Progress Note ---
Subjective HPI/CC On Admission Date Seen by Provider: Dec 06, 2020 Time Seen by Provider: 12:00 Subjective/Events-last exam 12/06/2020: Patient doing pretty well Blood sugars are very brittle Hypoglycemia prompted decrease in insulin and labs just to be sure nothing had changed Imodium will be given for diarrhea 12/05/2020: Patient doing pretty well Redness around the wound so Dr. Carroll started Keflex Very impulsive Discharge plan for Wednesday Nicotine patch is helpful Loose stools holding laxatives 12/04/20: Patient doing pretty well No major concerns Wants to go home soon Discharge is planned for Wednesday Constant pain is reported out of proportion to what he appears to be in 12/03/2020: Patient doing pretty well Complains of pain constantly out of proportion Sliding scale a initiated No falls 12/02/2020: Patient doing pretty well Bowels moved yesterday Blood sugar good at 159 Needs double portions 12/01/2020: Patient doing pretty well No significant concerns Changing fentanyl to only given before dressing changes Oxycodone ordered for increased pain if it occurs 11/30/2020: Patient is a very brittle diabetic Feels like he is doing pretty well though Increase in consumption of snacks and junk food and his blood sugars are 366 Ongoing chronic pain issues 11/29/2020: Patient settling in pretty well Very brittle diabetes noted Pain is pretty well controlled No falls Bradycardic and held metoprolol Dr. Carroll makes the dressing changes Hemoglobin A1c is pending but after rounds it came back at 10.3 Review of Systems General: Fatigue, Malaise Gastrointestinal: Diarrhea Focused Exam Lactate Level 12/06/20 18:28: Lactic Acid Level 1.74 Objective Exam Vital Signs Vital Signs Date Time Temp Pulse Resp B/P (MAP) Pulse Ox O2 Delivery O2 Flow Rate FiO2 12/06/20 21:00 Room Air 12/06/20 20:00 37.2 99 18 127/78 (94) 98 Capillary Refill : General Appearance: No Apparent Distress, WD/WN, Chronically ill, Thin HEENT: PERRL/EOMI, Normal ENT Inspection, Pharynx Normal Neck: Full Range of Motion, Normal Inspection, Non Tender, Supple, Carotid Bruit Respiratory: Chest Non Tender, Lungs Clear, Normal Breath Sounds, No Accessory Muscle Use, No Respiratory Distress Cardiovascular: Regular Rate, Rhythm, No Edema, No Gallop, No JVD, No Murmur, Normal Peripheral Pulses Gastrointestinal: Normal Bowel Sounds, No Organomegaly, No Pulsatile Mass, Non Tender, Soft Back: Normal Inspection, No CVA Tenderness, No Vertebral Tenderness Extremity: Normal Capillary Refill, Normal Inspection, Normal Range of Motion, Non Tender, No Calf Tenderness, No Pedal Edema, Other (Left BKA) Neurologic/Psychiatric: Alert, Oriented x3, No Motor/Sensory Deficits, Normal Mood/Affect, composition roofer II-XII Norm as Tested Skin: Normal Color, Warm/Dry Lymphatic: No Adenopathy Results/Procedures Lab Laboratory Tests 12/06/20 18:28 Patient resulted labs reviewed. FIM Transfers Therapy Code Descriptions/Definitions Functional [place] Measure: 0=Not Assessed/NA 4=Minimal Assistance 1=Total Assistance 5=Supervision or Setup 2=Maximal Assistance 6=Modified [place] 3=Moderate Assistance 7=Complete IndependenceSCALE: Activities may be completed with or without assistive devices. 8-Cjfuyjvcub-mynglky completes the activity by him/herself with no assistance f rom a helper. 5-Set-up or Clean-up Assistance-helper sets up or cleans up; patient completes activity. [place] assists only prior to or following the activity. 4-Supervision or Touching Assistance-helper provides verbal cues and/or touching/steadying and/or contact guard assistance as patient completes activity. Assistance may be provided throughout the activity or intermittently. 3-Partial/Moderate Assistance-helper does LESS THAN HALF the effort. [place] lifts, holds or supports trunk or limbs, but provides less than half the effort. 2-Substantial/Maximal Assistance-helper does MORE THAN HALF the effort. [place] lifts or holds trunk or limbs and provides more than half the effort. 2-Ihkzgojrp-vjbqak does ALL the effort. Patient does none of the effort to complete the activity. Or, the assistance of 2 or more helpers is required for the patient to complete the activity. If activity was not attempted, code reason: 7-Patient Refused. 9-Not Applicable-not attempted and the patient did not perform the activity before the current illness, exacerbation or injury. 10-Not Attempted due to Environmental Limitations-(lack of equipment, weather restraints, etc.). 88-Not Attempted due to Medical Conditions or Safety Concerns. Roll Left to Right (QC): 6 Sit to Lying (QC): 5 Sit to Stand (QC): 5 Chair/Gub-lg-Dqtqo Xfer(QC): 5 Car Transfer (QC): 4 Gait Training Does the Patient Walk?: Yes Distance: 150' Walk 10 feet (QC): 4 Walk 50 ft with 2 Turns(QC): 4 Walk 150 ft (QC): 4 Walking 10ft/uneven surface-QC: 88 Gait Persons Needed: 1 Gait Assistive Device: FWW Wheelchair Training Does the Pt Use a Wheelchair?: Yes Distance: 150'x3 Wheel 50 ft with 2 turns (QC): 5 Wheel 150 ft (QC): 5 Type of Wheelchair: Manual Stair Training Stair Training: Handrails/: 1 handrail #of Steps: 4 1 Step (curb) (QC): 4 4 Steps (QC): 4 12 Steps (QC): 88 Stairs: Pattern: Step to Balance Picking up an Object (QC): 88 ADL-Treatment Eating (QC): 6 Oral Hygiene (QC): 6 Shower/Bathe Self (QC): 4 (setup for bathing, SBA drying bottom) Upper Body Dressing (QC): 5 (setup) Lower Body Dressing (QC): 4 (SBA) On/Off Footwear (QC): 5 (setup) Toileting Hygiene (QC): 4 (SBA) Toilet Transfer (QC): 4 (SBA) Assessment/Plan Assessment and Plan Assess & Plan/Chief Complaint Assessment: Status post left below the knee amputation Diabetes insulin requiring Chronic pain Status post septic shock Plan: Pain control Discontinue catheter Inpatient rehab protocol Monitor closely 11/29/2020: Brittle diabetes noted with poor control with hemoglobin A1c of over 10 Pain control Dressing changes per Dr. Carroll 11/30/2020: Continue pain management Aggressive therapy Monitor closely 12/01/2020: Monitor blood sugar closely Brittle diabetes noted Pain control 12/02/2020: Double portions Monitor sugar Pain control 12/03/2020: Maintain pain meds Discussed smoking cessation 12/04/2020 Continue current treatment Monitor closely Discharge plan for the first of week 12/05/2020: Pain management Adjust insulin but brittle diabetes is chronic 12/06/2020: Adjust insulin Pain control Imodium for diarrhea (1) Hx of BKA (2) Drug overdose, multiple drugs Status: Acute (3) Amputation stump infection Status: Acute (4) T2DM (type 2 diabetes mellitus) Status: Acute (5) Septic shock Status: Resolved Resolution Date/Time: 11/20/20 @ 10:53 (6) Acute osteomyelitis of left tibia Status: Acute CHIP TAPIA DO Dec 06, 2020 06:18
[2020-12-06] MEDS: polyethylene glycoL POWDER 17 GM (MIRALAX) PACK PO SCH ×2 (07:53→20:59)
[2020-12-06] MEDS: DOCUSATE SODIUM 100 MG (COLACE) CAP PO SCH ×2 (07:53→20:59)
[2020-12-06] MEDS: SENNA W/DOCUSATE (SENOKOT S) TABLET PO SCH ×2 (07:53→20:59)
[2020-12-06 08:00] VITALS: BP 132/73
[2020-12-06] MEDS: NICOTINE 21 MG (NICODERM) PATCH TD SCH (08:37)
[2020-12-06] MEDS: CEPHALEXIN 250 MG (KEFLEX) CAP PO SCH ×3 (08:37→21:25)
[2020-12-06] MEDS: PANTOPRAZOLE 40 MG (PROTONIX) TAB PO SCH (08:37)
[2020-12-06] MEDS: metFORMIN 500 MG (GLUCOPHAGE) TAB PO SCH ×2 (08:37→18:06)
[2020-12-06] MEDS: NICOTINE PATCH REMOVAL TP SCH (08:37)
[2020-12-06] MEDS: GABAPENTIN 400 MG (NEURONTIN) CAP PO SCH ×3 (08:37→21:25)
--- NOTE | 2020-12-06 10:31 | Physical Therapy Daily Note ---
PT Daily Note-Current Subjective Patient sitting in w/c upon PT arrival, agreeable to treatment. Rates pain at 10/10. Nurse notified and reports it is not yet time for pain pill. Patient educated. Pain Numeric Pain Scale: 10-Worst Possible Pain Location: Left Location Body Site: Knee Pain Description: Ache, Stabbing, Acute, Sharp Mental Status Patient Orientation: Person, Time, Situation Transfers SCALE: Activities may be completed with or without assistive devices. 9-Lmpeftsnpq-lsopqsd completes the activity by him/herself with no assistance from a helper. 5-Set-up or Clean-up Assistance-helper sets up or cleans up; patient completes activity. [place] assists only prior to or following the activity. 4-Supervision or Touching Assistance-helper provides verbal cues and/or touching/steadying and/or contact guard assistance as patient completes activity. Assistance may be provided throughout the activity or intermittently. 3-Partial/Moderate Assistance-helper does LESS THAN HALF the effort. [place] lifts, holds or supports trunk or limbs, but provides less than half the effort. 2-Substantial/Maximal Assistance-helper does MORE THAN HALF the effort. [place] lifts or holds trunk or limbs and provides more than half the effort. 2-Rijpbqjrk-chyiib does ALL the effort. Patient does none of the effort to complete the activity. Or, the assistance of 2 or more helpers is required for the patient to complete the activity. If activity was not attempted, code reason: 7-Patient Refused. 9-Not Applicable-not attempted and the patient did not perform the activity before the current illness, exacerbation or injury. 10-Not Attempted due to Environmental Limitations-(lack of equipment, weather restraints, etc.). 88-Not Attempted due to Medical Conditions or Safety Concerns. Roll Left & Right (QC): 5 Sit to Lying (QC): 5 Lying to Sitting/Side of Bed(Q: 5 Sit to Stand (QC): 5 Chair/Gls-zl-Dsrms Xfer(QC): 4 Toilet Transfer (QC): 4 Weight Bearing Right Lower Extremity: Right Full Weight Bearing Gait Training Does the Patient Walk?: Yes Walk 10 feet (QC): 5 Walk 50 ft with 2 Turns(QC): 5 Walk 150 ft (QC): 4 Gait Persons Needed: 1 Gait Assistive Device: FWW Wheelchair Training Does the Pt Use a Wheelchair?: Yes Wheel 50 ft with 2 turns (QC): 5 Wheel 150 ft (QC): 5 Type of Wheelchair: Manual (5) Stair Training Stair Training: Handrails/: 2 handrails #of Steps: 4 1 Step (curb) (QC): 3 4 Steps (QC): 3 Stairs: Pattern: Hops Balance Picking up an Object (QC): 4 Exercises NuStep Minutes: 15 NuStep Workload: 6 Treatments Patient performed gait training with FWW with CGA x 60 feet, 50 feet and 65 feet. Therapeutic activity of dyanamic standing balance, w/c training in various situations including rolling through tight spaces, up to objects and appropriate positioning of w/c in relation to steps and in transfer situations. Assessment Current Status: Fair Progress Patient tolerated treatment fair with reports of significant pain in left residual limb. Nurse notified and dispensed pain pill midway through treatment. Patient ambulates with CGA per gait training listed above. Patient balance fair with FWW. Patient educated on proper stairs and performance. Patient ascends/descends 4 steps with bilateral handrails with mod A. Patient in w/c with all needs met, nursing notified, call light in reach post treatment. PT Short Term Goals Short Term Goals Time Frame: Dec 05, 2020 Roll Left & Right: 6 Sit to lyin Lying to sitting on side of be: 6 Sit to stand: 4 Chair/deo-ol-mrmoe transfer: 4 Walk 10 feet: 4 PT Bathhouse Attendant Goals Bathhouse Attendant Goals PT Residential Goals Time Frame: Dec 19, 2020 Roll Left & Right (QC): 6 Sit to Lying (QC): 6 Lying-Sitting on Side/Bed(QC): 6 Sit to Stand (QC): 5 Chair/Jxn-fw-Fosrn Xfer(QC): 5 Toilet Transfer (QC): 5 Car Transfer (QC): 5 Does the Patient Walk: Yes Walk 10 feet (QC): 4 Walk 50ft with 2 Turns (QC): 4 Walk 150 ft (QC): 88 Walking 10ft on Uneven Surface: 4 1 Step (curb) (QC): 4 4 Steps (QC): 4 12 Steps (QC): 88 Picking up an Object (QC): 4 Wheel 50 feet with 2 turns (QC: 6 Wheel 150 feet: 6 PT Plan Problem List Problem List: Activity Tolerance, Functional Strength, Safety, Balance, Gait, Transfer Treatment/Plan Treatment Plan: Continue Plan of Care Treatment Plan: Bed Mobility, Education, Functional Activity Jessi, Functional Strength, Group Therapy, Gait, Safety, Therapeutic Exercise, Transfers Treatment Duration: Dec 19, 2020 Frequency: At least 5 of 7 days/Wk (IRF) Estimated Hrs Per Day: 1.5 hours per day Patient and/or Family Agrees t: Yes Safety Risks/Education Patient Education: Gait Training, Transfer Techniques, Steps, Correct Positioning, W/C Management Teaching Recipient: Patient Teaching Methods: Demonstration, Discussion Response to Teaching: Verbalize Understanding Time/GCodes Time In: 930 Time Out: 1030 Total Billed Treatment Time: 60 Total Billed Treatment Visit, Gait x 2, FA x 2 LASHAY WIGGINS PT Dec 06, 2020 10:30
--- NOTE | 2020-12-06 11:56 | Occupational Ther Daily Note ---
OT Current Status-Daily Note Subjective Pt seen in room, up in bed, agreeable to OT. No pain mentioned. Appearance Alert, cooperative ADL-Treatment Pt declined ADLs Therapy Code Descriptions/Definitions Functional [place] Measure: 0=Not Assessed/NA 4=Minimal Assistance 1=Total Assistance 5=Supervision or Setup 2=Maximal Assistance 6=Modified [place] 3=Moderate Assistance 7=Complete IndependenceSCALE: Activities may be completed with or without assistive devices. 2-Gciafuvmgd-ztemzve completes the activity by him/herself with no assistance from a helper. 5-Set-up or Clean-up Assistance-helper sets up or cleans up; patient completes activity. [place] assists only prior to or following the activity. 4-Supervision or Touching Assistance-helper provides verbal cues and/or touching/steadying and/or contact guard assistance as patient completes activity. Assistance may be provided throughout the activity or intermittently. 3-Partial/Moderate Assistance-helper does LESS THAN HALF the effort. [place] lifts, holds or supports trunk or limbs, but provides less than half the effort. 2-Substantial/Maximal Assistance-helper does MORE THAN HALF the effort. [place] lifts or holds trunk or limbs and provides more than half the effort. 0-Lfpqjedpo-ehidpl does ALL the effort. Patient does none of the effort to complete the activity. Or, the assistance of 2 or more helpers is required for the patient to complete the activity. If activity was not attempted, code reason: 7-Patient Refused. 9-Not Applicable-not attempted and the patient did not perform the activity before the current illness, exacerbation or injury. 10-Not Attempted due to Environmental Limitations-(lack of equipment, weather restraints, etc.). 88-Not Attempted due to Medical Conditions or Safety Concerns. Other Treatment Pt transferred mod I to w/c SPT. Propelled w/c to gym for bilat UE exercise. Locked w/c without cues. He completed 14 min bilat UE ex on arm bike set at 25W resistance, with one brief recovery break at mid-point. Also completed nut and bolts activity with 2 pounds weight on each arm and peg activity, also with 2# weight. To strengthen arms as needed for standing during ADLs and functional mobility. He noted that his shoulders were sore from walking up a ramp yesterday. Pt propelled w/c back to room and was left up in chair, all needs met. Education OT Patient Education: Exercise program, Progress toward Goal/Update tx plan, Purpose of tx/functional activities Teaching Recipient: Patient Teaching Methods: Discussion Response to Teaching: Verbalize Understanding, Return Demonstration OT Short Term Goals Short Term Goals Time Frame: Dec 05, 2020 Eatin Oral hygiene: 6 Toileting hygiene: 4 Shower/bathe self: 4 Upper body dressin Lower body dressin Putting on/taking off footwear: 4 OT Classifier Operator Goals Classifier Operator Goals Time Frame: Dec 19, 2020 Eating (QC): 6 Oral Hygiene (QC): 6 Toileting Hygiene (QC): 6 Shower/Bathe Self (QC): 4 Upper Body Dressing (QC): 6 Lower Body Dressing (QC): 6 On/Off Footwear (QC): 6 Additional Goals: 1-Demonstrate ADL Tasks, 2-Verbalize Understanding, 3- ImproveStrength/Jessi 1=Demonstrate adherence to instructed precautions during ADL tasks. 2=Patient will verbalize/demonstrate understanding of assistive devices/modifications for ADL. 3=Patient will improve strength/tolerance for activity to enable patient to perform ADL's. OT Education/Plan Discharge Recommendations Plan/Recommendations: Continue POC Treatment Plan/Plan of Care Patient would benefit from OT for education, treatment and training to promote independence in ADL's, mobility, safety and/or upper extremity function for ADL's. Plan of Care: ADL Retraining, Functional Mobility, UE Funct Exercise/Act Treatment Duration: Dec 19, 2020 Frequency: At least 5 of 7 days/Wk (IRF) Estimated Hrs Per Day: 1.5 hours per day Agreement: Yes Rehab Potential: Fair Time/GCodes Start Time: 08:30 Stop Time: 09:30 Total Time Billed (hr/min): 60 Billed Treatment Time visit, 60 minutes exercise ALCON FAIR OT Dec 06, 2020 11:56
--- NOTE | 2020-12-06 11:56 | Occupational Ther Daily Note ---
OT Current Status-Daily Note Subjective Pt seen up in bed, agreeable to OT. He reported phantom pain in L "foot" on and off throughout tx. Appearance Alert, cooperative ADL-Treatment Therapy Code Descriptions/Definitions Functional [place] Measure: 0=Not Assessed/NA 4=Minimal Assistance 1=Total Assistance 5=Supervision or Setup 2=Maximal Assistance 6=Modified [place] 3=Moderate Assistance 7=Complete IndependenceSCALE: Activities may be completed with or without assistive devices. 0-Lhihjqpfsg-nxaawov completes the activity by him/herself with no assistance from a helper. 5-Set-up or Clean-up Assistance-helper sets up or cleans up; patient completes activity. [place] assists only prior to or following the activity. 4-Supervision or Touching Assistance-helper provides verbal cues and/or touching/steadying and/or contact guard assistance as patient completes activity. Assistance may be provided throughout the activity or intermittently. 3-Partial/Moderate Assistance-helper does LESS THAN HALF the effort. [place] lifts, holds or supports trunk or limbs, but provides less than half the effort. 2-Substantial/Maximal Assistance-helper does MORE THAN HALF the effort. [place] lifts or holds trunk or limbs and provides more than half the effort. 7-Cdiflgdqh-wwwawu does ALL the effort. Patient does none of the effort to complete the activity. Or, the assistance of 2 or more helpers is required for the patient to complete the activity. If activity was not attempted, code reason: 7-Patient Refused. 9-Not Applicable-not attempted and the patient did not perform the activity before the current illness, exacerbation or injury. 10-Not Attempted due to Environmental Limitations-(lack of equipment, weather restraints, etc.). 88-Not Attempted due to Medical Conditions or Safety Concerns. Other Treatment Pt propelled w/c to gym. Locked brakes without cues. Stood with FWW and tossed omer bags, balancing with one hand or other. Pt noted that he felt steadier when supporting himself with R UE and L leg. Also stood at sink, leaning on counter, and able to work with both hands free. He wants to be able to wash dishes when he is home. Completed bilat UE exercise with exercise bar and additional 3# (4.5 total) and 2# free weight, 15 reps each exercise. Able to track repetitions. All to strengthen arms to help with ADLs and functional mobility. Pt propelled w/c back to room and needed to toilet. Completed toilet transfer and clothing management with SBA, grab bar. Pt left up on toilet, call light present, and nursing notified. Education OT Patient Education: Exercise program, Progress toward Goal/Update tx plan, Purpose of tx/functional activities Teaching Recipient: Patient Teaching Methods: Discussion Response to Teaching: Verbalize Understanding, Return Demonstration OT Short Term Goals Short Term Goals Time Frame: Dec 05, 2020 Eatin Oral hygiene: 6 Toileting hygiene: 4 Shower/bathe self: 4 Upper body dressin Lower body dressin Putting on/taking off footwear: 4 OT Group Home Goals Javascript Front End Developer Goals Time Frame: Dec 19, 2020 Eating (QC): 6 Oral Hygiene (QC): 6 Toileting Hygiene (QC): 6 Shower/Bathe Self (QC): 4 Upper Body Dressing (QC): 6 Lower Body Dressing (QC): 6 On/Off Footwear (QC): 6 Additional Goals: 1-Demonstrate ADL Tasks, 2-Verbalize Understanding, 3- ImproveStrength/Jessi 1=Demonstrate adherence to instructed precautions during ADL tasks. 2=Patient will verbalize/demonstrate understanding of assistive devices/modifications for ADL. 3=Patient will improve strength/tolerance for activity to enable patient to perform ADL's. OT Education/Plan Discharge Recommendations Plan/Recommendations: Continue POC Treatment Plan/Plan of Care Patient would benefit from OT for education, treatment and training to promote independence in ADL's, mobility, safety and/or upper extremity function for ADL's. Plan of Care: ADL Retraining, Functional Mobility, UE Funct Exercise/Act Treatment Duration: Dec 19, 2020 Frequency: At least 5 of 7 days/Wk (IRF) Estimated Hrs Per Day: 1.5 hours per day Agreement: Yes Rehab Potential: Fair Time/GCodes Start Time: 11:15 Stop Time: 11:45 Total Time Billed (hr/min): 30 Billed Treatment Time visit, 30 minutes exercise ALCON FAIR OT Dec 06, 2020 11:56
--- NOTE | 2020-12-06 13:46 | Physical Therapy Daily Note ---
PT Daily Note-Current Subjective Patient sitting in chair upon PT arrival, agreeable to treatment. Reports pain has increased to 10/10 again and "I'm just angry, just feel like complaining." Pain Numeric Pain Scale: 10-Worst Possible Pain Location: Left Location Body Site: Knee Pain Description: Ache, Stabbing, Sharp Mental Status Patient Orientation: Person, Place, Time, Situation Transfers SCALE: Activities may be completed with or without assistive devices. 1-Cnqksfseup-xtxkuqr completes the activity by him/herself with no assistance from a helper. 5-Set-up or Clean-up Assistance-helper sets up or cleans up; patient completes activity. [place] assists only prior to or following the activity. 4-Supervision or Touching Assistance-helper provides verbal cues and/or touching/steadying and/or contact guard assistance as patient completes activity. Assistance may be provided throughout the activity or intermittently. 3-Partial/Moderate Assistance-helper does LESS THAN HALF the effort. [place] lifts, holds or supports trunk or limbs, but provides less than half the effort. 2-Substantial/Maximal Assistance-helper does MORE THAN HALF the effort. [place] lifts or holds trunk or limbs and provides more than half the effort. 2-Zffdrljpo-sxsphf does ALL the effort. Patient does none of the effort to complete the activity. Or, the assistance of 2 or more helpers is required for the patient to complete the activity. If activity was not attempted, code reason: 7-Patient Refused. 9-Not Applicable-not attempted and the patient did not perform the activity before the current illness, exacerbation or injury. 10-Not Attempted due to Environmental Limitations-(lack of equipment, weather restraints, etc.). 88-Not Attempted due to Medical Conditions or Safety Concerns. Weight Bearing Right Lower Extremity: Right Full Weight Bearing Gait Training Distance: 150 Walk 10 feet (QC): 4 Walk 50 ft with 2 Turns(QC): 4 Walk 150 ft (QC): 4 Gait Persons Needed: 1 Gait Assistive Device: FWW Wheelchair Training Does the Pt Use a Wheelchair?: Yes Wheel 50 ft with 2 turns (QC): 5 Wheel 150 ft (QC): 5 Type of Wheelchair: Manual Exercises Standin way Ex=Flex, Abd, Ext Standing Reps: 20 Patient performed [place] hip stretching with yellow foam noodle under left distal thigh to encourage increased left hip extension. Assessment Current Status: Fair Progress Patient continues to demonstrate lack of left hip extension in standing, supine and prone. Tolerated stretching fair, but notes increase in right knee pain due to position. He also tends to rotate minimally onto his right side to alleviate stress on the left anterior hip. Patient in chair post treatment with all needs met, nursing notified, call light in reach. PT Short Term Goals Short Term Goals Time Frame: Dec 05, 2020 Roll Left & Right: 6 Sit to lyin Lying to sitting on side of be: 6 Sit to stand: 4 Chair/uce-pl-zufla transfer: 4 Walk 10 feet: 4 PT Correction Goals [place] Mechanic Goals PT [place] Mechanic Goals Time Frame: Dec 19, 2020 Roll Left & Right (QC): 6 Sit to Lying (QC): 6 Lying-Sitting on Side/Bed(QC): 6 Sit to Stand (QC): 5 Chair/[place] Xfer(QC): 5 Toilet Transfer (QC): 5 Car Transfer (QC): 5 Does the Patient Walk: Yes Walk 10 feet (QC): 4 Walk 50ft with 2 Turns (QC): 4 Walk 150 ft (QC): 88 Walking 10ft on Uneven Surface: 4 1 Step (curb) (QC): 4 4 Steps (QC): 4 12 Steps (QC): 88 Picking up an Object (QC): 4 Wheel 50 feet with 2 turns (QC: 6 Wheel 150 feet: 6 PT Plan Problem List Problem List: Activity Tolerance, Functional Strength, Safety, Balance, Gait, Transfer, ROM Treatment/Plan Treatment Plan: Continue Plan of Care Treatment Plan: Bed Mobility, Education, Functional Activity Jessi, Functional Strength, Group Therapy, Gait, Safety, Therapeutic Exercise, Transfers Treatment Duration: Dec 19, 2020 Frequency: At least 5 of 7 days/Wk (IRF) Estimated Hrs Per Day: 1.5 hours per day Patient and/or Family Agrees t: Yes Time/GCodes Time In: 1310 Time Out: 1340 Total Billed Treatment Time: 30 Total Billed Treatment Gait, Exercise LASHAY WIGGINS PT Dec 06, 2020 13:46
[2020-12-06] MEDS: fentaNYL INJ 100 MCG/2 ML AMP IVP PRN (16:33)
[2020-12-06] MEDS: ENOXAPARIN 40 MG/0.4 ML (LOVENOX) SYR SC SCH (16:33)
[2020-12-06] MEDS ORDERED: inSUlin (REGULAR) HUMAN 1 UNIT/0.01 ML (CHARGE PER UNIT) SC PRN (18:00)
[2020-12-06 18:37] LABS: BASOPHILS # (AUTO) 0.1 10^3/uL (0.0-0.1); BASOPHILS % (AUTO) 1 % (0-10); EOSINOPHILS # (AUTO) 0.3 10^3/uL (0.0-0.3); EOSINOPHILS % (AUTO) 3 % (0-10); HEMATOCRIT 30 % (40-54); HEMOGLOBIN 9.6 g/dL (13.3-17.7); LYMPHOCYTES # (AUTO) 1.5 10^3/uL (1.0-4.0); LYMPHOCYTES % (AUTO) 17 % (12-44); MEAN CORPUSCULAR HEMOGLOBIN 31 pg (25-34); MEAN CORPUSCULAR HGB CONC 33 g/dL (32-36); MEAN CORPUSCULAR VOLUME 94 fL (80-99); MEAN PLATELET VOLUME 9.3 fL (9.0-12.2); MONOCYTES # (AUTO) 0.6 10^3/uL (0.0-1.0); MONOCYTES % (AUTO) 7 % (0-12); NEUTROPHILS # (AUTO) 6.4 10^3/uL (1.8-7.8); NEUTROPHILS % (AUTO) 72 % (42-75); PLATELET COUNT 405 10^3/uL (130-400); WHITE BLOOD COUNT 8.9 10^3/uL (4.3-11.0)
[2020-12-06 18:48] LABS: ALBUMIN 3.7 GM/DL (3.2-4.5); CHLORIDE 103 MMOL/L (98-107); POTASSIUM 4.9 MMOL/L (3.6-5.0); SODIUM 138 MMOL/L (135-145)
[2020-12-06 18:49] LABS: CALCIUM 9.7 MG/DL (8.5-10.1)
[2020-12-06 18:50] LABS: GLUCOSE 207 MG/DL (70-105); TOTAL PROTEIN 7.1 GM/DL (6.4-8.2)
[2020-12-06 18:51] LABS: CARBON DIOXIDE 22 MMOL/L (21-32)
[2020-12-06 18:52] LABS: BILIRUBIN,TOTAL 0.2 MG/DL (0.1-1.0)
[2020-12-06 18:54] LABS: ALKALINE PHOSPHATASE 75 U/L (40-136); CREATININE SERUM 0.82 MG/DL (0.60-1.30); GFR ESTIMATED > 60
[2020-12-06 18:55] LABS: BUN/CREATININE RATIO 20
[2020-12-06 18:57] LABS: ALANINE AMINOTRANSFERASE 16 U/L (0-55)
[2020-12-06 20:00] VITALS: BP 127/78
[2020-12-07] MEDS: NYSTATIN ORAL SUSP 5 ML UDC PO SCH ×4 (00:04→17:47)
--- NOTE | 2020-12-07 06:36 | PM&R Progress Note ---
Subjective HPI/CC On Admission Date Seen by Provider: Dec 07, 2020 Time Seen by Provider: 12:00 Subjective/Events-last exam 12/07/2020: Patient doing pretty well [place] managed by Dr. Carroll Blood sugar 198 Bowels moved yesterday 12/06/2020: Patient doing pretty well Blood sugars are very brittle Hypoglycemia prompted decrease in insulin and labs just to be sure nothing had changed Imodium will be given for diarrhea 12/05/2020: Patient doing pretty well Redness around the wound so Dr. Carroll started Keflex Very impulsive Discharge plan for Wednesday Nicotine patch is helpful Loose stools holding laxatives 12/04/20: Patient doing pretty well No major concerns Wants to go home soon Discharge is planned for Wednesday Constant pain is reported out of proportion to what he appears to be in 12/03/2020: Patient doing pretty well Complains of pain constantly out of proportion Sliding scale a initiated No falls 12/02/2020: Patient doing pretty well Bowels moved yesterday Blood sugar good at 159 Needs double portions 12/01/2020: Patient doing pretty well No significant concerns Changing fentanyl to only given before dressing changes Oxycodone ordered for increased pain if it occurs 11/30/2020: Patient is a very brittle diabetic Feels like he is doing pretty well though Increase in consumption of snacks and junk food and his blood sugars are 366 Ongoing chronic pain issues 11/29/2020: Patient settling in pretty well Very brittle diabetes noted Pain is pretty well controlled No falls Bradycardic and held metoprolol Dr. Carroll makes the dressing changes Hemoglobin A1c is pending but after rounds it came back at 10.3 Review of Systems Musculoskeletal: leg pain Focused Exam Lactate Level 12/06/20 18:28: Lactic Acid Level 1.74 Objective Exam Vital Signs Vital Signs Date Time Temp Pulse Resp B/P (MAP) Pulse Ox O2 Delivery O2 Flow Rate FiO2 12/07/20 20:05 100 Room Air 12/07/20 20:05 37.6 104 18 128/77 (94) Capillary Refill : General Appearance: No Apparent Distress, WD/WN, Chronically ill, Thin HEENT: PERRL/EOMI, Normal ENT Inspection, Pharynx Normal Neck: Full Range of Motion, Normal Inspection, Non Tender, Supple, Carotid Bruit Respiratory: Chest Non Tender, Lungs Clear, Normal Breath Sounds, No Accessory Muscle Use, No Respiratory Distress Cardiovascular: Regular Rate, Rhythm, No Edema, No Gallop, No JVD, No Murmur, Normal Peripheral Pulses Gastrointestinal: Normal Bowel Sounds, No Organomegaly, No Pulsatile Mass, Non Tender, Soft Back: Normal Inspection, No CVA Tenderness, No Vertebral Tenderness Extremity: Normal Capillary Refill, Normal Inspection, Normal Range of Motion, Non Tender, No Calf Tenderness, No Pedal Edema, Other (Left BKA) Neurologic/Psychiatric: Alert, Oriented x3, No Motor/Sensory Deficits, Normal Mood/Affect, time study observer II-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 FIM Transfers Therapy Code Descriptions/Definitions Functional [place] Measure: 0=Not Assessed/NA 4=Minimal Assistance 1=Total Assistance 5=Supervision or Setup 2=Maximal Assistance 6=Modified [place] 3=Moderate Assistance 7=Complete IndependenceSCALE: Activities may be completed with or without assistive devices. 7-Ouxpcmxxyh-pvfjtsk completes the activity by him/herself with no assistance from a helper. 5-Set-up or Clean-up Assistance-helper sets up or cleans up; patient completes activity. [place] assists only prior to or following the activity. 4-Supervision or Touching Assistance-helper provides verbal cues and/or touching/steadying and/or contact guard assistance as patient completes activity. Assistance may be provided throughout the activity or intermittently. 3-Partial/Moderate Assistance-helper does LESS THAN HALF the effort. [place] lifts, holds or supports trunk or limbs, but provides less than half the effort. 2-Substantial/Maximal Assistance-helper does MORE THAN HALF the effort. [place] lifts or holds trunk or limbs and provides more than half the effort. 9-Lscalnyag-vkkiav does ALL the effort. Patient does none of the effort to complete the activity. Or, the assistance of 2 or more helpers is required for the patient to complete the activity. If activity was not attempted, code reason: 7-Patient Refused. 9-Not Applicable-not attempted and the patient did not perform the activity before the current illness, exacerbation or injury. 10-Not Attempted due to Environmental Limitations-(lack of equipment, weather restraints, etc.). 88-Not Attempted due to Medical Conditions or Safety Concerns. Roll Left to Right (QC): 5 Sit to Lying (QC): 5 Sit to Stand (QC): 5 Chair/Uxj-tg-Sgpqf Xfer(QC): 4 Car Transfer (QC): 4 Gait Training Does the Patient Walk?: Yes Distance: 150 Walk 10 feet (QC): 4 Walk 50 ft with 2 Turns(QC): 4 Walk 150 ft (QC): 4 Walking 10ft/uneven surface-QC: 88 Gait Persons Needed: 1 Gait Assistive Device: FWW Wheelchair Training Does the Pt Use a Wheelchair?: Yes Distance: 150'x3 Wheel 50 ft with 2 turns (QC): 5 Wheel 150 ft (QC): 5 Type of Wheelchair: Manual Stair Training Stair Training: Handrails/: 2 handrails #of Steps: 4 1 Step (curb) (QC): 3 4 Steps (QC): 3 12 Steps (QC): 88 Stairs: Pattern: Hops Balance Picking up an Object (QC): 4 ADL-Treatment Eating (QC): 6 Oral Hygiene (QC): 6 Shower/Bathe Self (QC): 4 (setup for bathing, SBA drying bottom) Upper Body Dressing (QC): 5 (setup) Lower Body Dressing (QC): 4 (SBA) On/Off Footwear (QC): 5 (setup) Toileting Hygiene (QC): 4 (SBA) Toilet Transfer (QC): 4 (SBA) Assessment/Plan Assessment and Plan Assess & Plan/Chief Complaint Assessment: Status post left below the knee amputation Diabetes insulin requiring Chronic pain Status post septic shock Plan: Pain control Discontinue catheter Inpatient rehab protocol Monitor closely 11/29/2020: Brittle diabetes noted with poor control with hemoglobin A1c of over 10 Pain control Dressing changes per Dr. Carroll 11/30/2020: Continue pain management Aggressive therapy Monitor closely 12/01/2020: Monitor blood sugar closely Brittle diabetes noted Pain control 12/02/2020: Double portions Monitor sugar Pain control 12/03/2020: Maintain pain meds Discussed smoking cessation 12/04/2020 Continue current treatment Monitor closely Discharge plan for the first of week 12/05/2020: Pain management Adjust insulin but brittle diabetes is chronic 12/06/2020: Adjust insulin Pain control Imodium for diarrhea 12/07/2020: Diarrhea resolved Pain controlled (1) Hx of BKA (2) Drug overdose, multiple drugs Status: Acute (3) Amputation stump infection Status: Acute (4) T2DM (type 2 diabetes mellitus) Status: Acute (5) Septic shock Status: Resolved Resolution Date/Time: 11/20/20 @ 10:53 (6) Acute osteomyelitis of left tibia Status: Acute CHIP TAPIA DO Dec 07, 2020 06:36
[2020-12-07] MEDS: inSUlin ASPART (NovoLOG) 1 UNIT/0.01 ML (CHARGE PER UNIT) SC SCH ×7 (06:45→21:48)
[2020-12-07 07:30] VITALS: BP 103/58
[2020-12-07] MEDS: metFORMIN 500 MG (GLUCOPHAGE) TAB PO SCH ×2 (07:59→17:47)
[2020-12-07] MEDS: SENNA W/DOCUSATE (SENOKOT S) TABLET PO SCH ×2 (07:59→21:46)
[2020-12-07] MEDS: GABAPENTIN 400 MG (NEURONTIN) CAP PO SCH ×3 (07:59→21:46)
[2020-12-07] MEDS: DOCUSATE SODIUM 100 MG (COLACE) CAP PO SCH ×2 (08:00→21:47)
[2020-12-07] MEDS: PANTOPRAZOLE 40 MG (PROTONIX) TAB PO SCH (08:00)
[2020-12-07] MEDS: NICOTINE 21 MG (NICODERM) PATCH TD SCH (08:01)
[2020-12-07] MEDS: NICOTINE PATCH REMOVAL TP SCH (08:01)
[2020-12-07] MEDS: CEPHALEXIN 250 MG (KEFLEX) CAP PO SCH ×3 (08:10→21:46)
[2020-12-07] MEDS: polyethylene glycoL POWDER 17 GM (MIRALAX) PACK PO SCH ×2 (09:34→21:40)
[2020-12-07] MEDS: fentaNYL INJ 100 MCG/2 ML AMP IVP PRN (11:07)
--- NOTE | 2020-12-07 12:07 | Physical Therapy Daily Note ---
PT Daily Note-Current Subjective Pt sitting in [facility] in room upon arrival. Pt agrees to PT. Mental Status Patient Orientation: Person, Place, Situation Transfers SCALE: Activities may be completed with or without assistive devices. 0-Gmoqcwpend-xxguwfy completes the activity by him/herself with no assistance from a helper. 5-Set-up or Clean-up Assistance-helper sets up or cleans up; patient completes activity. [place] assists only prior to or following the activity. 4-Supervision or Touching Assistance-helper provides verbal cues and/or touching/steadying and/or contact guard assistance as patient completes activity. Assistance may be provided throughout the activity or intermittently. 3-Partial/Moderate Assistance-helper does LESS THAN HALF the effort. [place] lifts, holds or supports trunk or limbs, but provides less than half the effort. 2-Substantial/Maximal Assistance-helper does MORE THAN HALF the effort. [place] lifts or holds trunk or limbs and provides more than half the effort. 0-Hcadkiawv-yzwiwt does ALL the effort. Patient does none of the effort to complete the activity. Or, the assistance of 2 or more helpers is required for the patient to complete the activity. If activity was not attempted, code reason: 7-Patient Refused. 9-Not Applicable-not attempted and the patient did not perform the activity before the current illness, exacerbation or injury. 10-Not Attempted due to Environmental Limitations-(lack of equipment, weather restraints, etc.). 88-Not Attempted due to Medical Conditions or Safety Concerns. Sit to Stand (QC): 5 Weight Bearing Right Lower Extremity: Right Full Weight Bearing Gait Training Does the Patient Walk?: Yes Distance: 150, 75' Walk 10 feet (QC): 4 Walk 50 ft with 2 Turns(QC): 4 Walk 150 ft (QC): 4 Gait Persons Needed: 1 Gait Assistive Device: FWW Pt has hop to gait pattern. Wheelchair Training Does the Pt Use a Wheelchair?: Yes Wheel 50 ft with 2 turns (QC): 5 Wheel 150 ft (QC): 5 Type of Wheelchair: Manual Exercises NuStep Minutes: 10 NuStep Workload: 6 Treatments TF to standing and amb. in hallway with [facility] following. Pt uses NuStep then amb. back to room until fatigued and transfers back to [facility] to propel to room. Pt has all needs met, call light next to pt. Assessment Current Status: Good Progress Pt still needs encouragement at times to push self for progress. PT Short Term Goals Short Term Goals Time Frame: Dec 05, 2020 Roll Left & Right: 6 Sit to lyin Lying to sitting on side of be: 6 Sit to stand: 4 Chair/xbm-wf-mbbth transfer: 4 Walk 10 feet: 4 PT Alf Goals Associate Teacher Goals PT Alf Goals Time Frame: Dec 19, 2020 Roll Left & Right (QC): 6 Sit to Lying (QC): 6 Lying-Sitting on Side/Bed(QC): 6 Sit to Stand (QC): 5 Chair/Nhr-qe-Loffg Xfer(QC): 5 Toilet Transfer (QC): 5 Car Transfer (QC): 5 Does the Patient Walk: Yes Walk 10 feet (QC): 4 Walk 50ft with 2 Turns (QC): 4 Walk 150 ft (QC): 88 Walking 10ft on Uneven Surface: 4 1 Step (curb) (QC): 4 4 Steps (QC): 4 12 Steps (QC): 88 Picking up an Object (QC): 4 Wheel 50 feet with 2 turns (QC: 6 Wheel 150 feet: 6 PT Plan Problem List Problem List: Activity Tolerance, Safety Treatment/Plan Treatment Plan: Continue Plan of Care Treatment Plan: Bed Mobility, Education, Functional Activity Jessi, Functional Strength, Group Therapy, Gait, Safety, Therapeutic Exercise, Transfers Treatment Duration: Dec 19, 2020 Frequency: At least 5 of 7 days/Wk (IRF) Estimated Hrs Per Day: 1.5 hours per day Patient and/or Family Agrees t: Yes Safety Risks/Education Patient Education: Correct Positioning, Safety Issues Teaching Recipient: Patient Teaching Methods: Discussion Response to Teaching: Verbalize Understanding Time/GCodes Time In: 1130 Time Out: 1155 Total Billed Treatment Time: 25 Total Billed Treatment 1, GT (15m) & EX (10m) WHITNEY [place]FO[place] NON DESTRUCTIVE TESTER Dec 07, 2020 12:07
[2020-12-07] MEDS: ENOXAPARIN 40 MG/0.4 ML (LOVENOX) SYR SC SCH (16:40)
[2020-12-07 20:05] VITALS: BP 128/77
[2020-12-08] MEDS: NYSTATIN ORAL SUSP 5 ML UDC PO SCH ×4 (00:03→18:15)
[2020-12-08] MEDS: inSUlin ASPART (NovoLOG) 1 UNIT/0.01 ML (CHARGE PER UNIT) SC SCH ×7 (05:59→21:22)
[2020-12-08 07:38] VITALS: BP 107/70
[2020-12-08] MEDS: NICOTINE PATCH REMOVAL TP SCH (07:56)
[2020-12-08] MEDS: NICOTINE 21 MG (NICODERM) PATCH TD SCH (07:56)
[2020-12-08] MEDS: metFORMIN 500 MG (GLUCOPHAGE) TAB PO SCH ×2 (07:56→18:15)
[2020-12-08] MEDS: PANTOPRAZOLE 40 MG (PROTONIX) TAB PO SCH (07:57)
[2020-12-08] MEDS: CEPHALEXIN 250 MG (KEFLEX) CAP PO SCH ×3 (07:57→20:06)
[2020-12-08] MEDS: GABAPENTIN 400 MG (NEURONTIN) CAP PO SCH ×3 (07:58→20:07)
--- NOTE | 2020-12-08 09:45 | PM&R Progress Note ---
Subjective HPI/CC On Admission Date Seen by Provider: Dec 08, 2020 Time Seen by Provider: 10:45 Subjective/Events-last exam 12/08/2020: Patient doing pretty well Has a decubitus ulcer that is very stage II Doing well overall Bowels moved yesterday 12/07/2020: Patient doing pretty well [place] managed by Dr. Carroll Blood sugar 198 Bowels moved yesterday 12/06/2020: Patient doing pretty well Blood sugars are very brittle Hypoglycemia prompted decrease in insulin and labs just to be sure nothing had changed Imodium will be given for diarrhea 12/05/2020: Patient doing pretty well Redness around the wound so Dr. Carroll started Keflex Very impulsive Discharge plan for Wednesday Nicotine patch is helpful Loose stools holding laxatives 12/04/20: Patient doing pretty well No major concerns Wants to go home soon Discharge is planned for Wednesday Constant pain is reported out of proportion to what he appears to be in 12/03/2020: Patient doing pretty well Complains of pain constantly out of proportion Sliding scale a initiated No falls 12/02/2020: Patient doing pretty well Bowels moved yesterday Blood sugar good at 159 Needs double portions 12/01/2020: Patient doing pretty well No significant concerns Changing fentanyl to only given before dressing changes Oxycodone ordered for increased pain if it occurs 11/30/2020: Patient is a very brittle diabetic Feels like he is doing pretty well though Increase in consumption of snacks and junk food and his blood sugars are 366 Ongoing chronic pain issues 11/29/2020: Patient settling in pretty well Very brittle diabetes noted Pain is pretty well controlled No falls Bradycardic and held metoprolol Dr. Carroll makes the dressing changes Hemoglobin A1c is pending but after rounds it came back at 10.3 Review of Systems General: Fatigue, Malaise Musculoskeletal: leg pain Focused Exam Lactate Level 12/06/20 18:28: Lactic Acid Level 1.74 Objective Exam Vital Signs Vital Signs Date Time Temp Pulse Resp B/P (MAP) Pulse Ox O2 Delivery O2 Flow Rate FiO2 12/08/20 09:00 Room Air 12/08/20 07:38 36.4 79 20 107/70 (82) 100 Capillary Refill : General Appearance: No Apparent Distress, WD/WN, Chronically ill, Thin HEENT: PERRL/EOMI, Normal ENT Inspection, Pharynx Normal Neck: Full Range of Motion, Normal Inspection, Non Tender, Supple, Carotid Bruit Respiratory: Chest Non Tender, Lungs Clear, Normal Breath Sounds, No Accessory Muscle Use, No Respiratory Distress Cardiovascular: Regular Rate, Rhythm, No Edema, No Gallop, No JVD, No Murmur, Normal Peripheral Pulses Gastrointestinal: Normal Bowel Sounds, No Organomegaly, No Pulsatile Mass, Non Tender, Soft Back: Normal Inspection, No CVA Tenderness, No Vertebral Tenderness Extremity: Normal Capillary Refill, Normal Inspection, Normal Range of Motion, Non Tender, No Calf Tenderness, No Pedal Edema, Other (Left BKA) Neurologic/Psychiatric: Alert, Oriented x3, No Motor/Sensory Deficits, Normal Mood/Affect, 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 FIM Transfers Therapy Code Descriptions/Definitions Functional [place] Measure: 0=Not Assessed/NA 4=Minimal Assistance 1=Total Assistance 5=Supervision or Setup 2=Maximal Assistance 6=Modified [place] 3=Moderate Assistance 7=Complete IndependenceSCALE: Activities may be completed with or without assistive devices. 1-Wzltgqldin-lwdifje completes the activity by him/herself with no assistance from a helper. 5-Set-up or Clean-up Assistance-helper sets up or cleans up; patient completes activity. [place] assists only prior to or following the activity. 4-Supervision or Touching Assistance-helper provides verbal cues and/or touching/steadying and/or contact guard assistance as patient completes activity. Assistance may be provided throughout the activity or intermittently. 3-Partial/Moderate Assistance-helper does LESS THAN HALF the effort. [place] lifts, holds or supports trunk or limbs, but provides less than half the effort. 2-Substantial/Maximal Assistance-helper does MORE THAN HALF the effort. [place] lifts or holds trunk or limbs and provides more than half the effort. 2-Oeoqkthjx-zokrna does ALL the effort. Patient does none of the effort to complete the activity. Or, the assistance of 2 or more helpers is required for the patient to complete the activity. If activity was not attempted, code reason: 7-Patient Refused. 9-Not Applicable-not attempted and the patient did not perform the activity before the current illness, exacerbation or injury. 10-Not Attempted due to Environmental Limitations-(lack of equipment, weather restraints, etc.). 88-Not Attempted due to Medical Conditions or Safety Concerns. Roll Left to Right (QC): 5 Sit to Lying (QC): 5 Sit to Stand (QC): 5 Chair/Bxw-nd-Mhvqe Xfer(QC): 4 Car Transfer (QC): 4 Gait Training Does the Patient Walk?: Yes Distance: 150, 75' Walk 10 feet (QC): 4 Walk 50 ft with 2 Turns(QC): 4 Walk 150 ft (QC): 4 Walking 10ft/uneven surface-QC: 88 Gait Persons Needed: 1 Gait Assistive Device: FWW Wheelchair Training Does the Pt Use a Wheelchair?: Yes Distance: 150'x3 Wheel 50 ft with 2 turns (QC): 5 Wheel 150 ft (QC): 5 Type of Wheelchair: Manual Stair Training Stair Training: Handrails/: 2 handrails #of Steps: 4 1 Step (curb) (QC): 3 4 Steps (QC): 3 12 Steps (QC): 88 Stairs: Pattern: Hops Balance Picking up an Object (QC): 4 ADL-Treatment Eating (QC): 6 Oral Hygiene (QC): 6 Shower/Bathe Self (QC): 4 (setup for bathing, SBA drying bottom) Upper Body Dressing (QC): 5 (setup) Lower Body Dressing (QC): 4 (SBA) On/Off Footwear (QC): 5 (setup) Toileting Hygiene (QC): 4 (SBA) Toilet Transfer (QC): 4 (SBA) Assessment/Plan Assessment and Plan Assess & Plan/Chief Complaint Assessment: Status post left below the knee amputation Diabetes insulin requiring Chronic pain Status post septic shock Plan: Pain control Discontinue catheter Inpatient rehab protocol Monitor closely 11/29/2020: Brittle diabetes noted with poor control with hemoglobin A1c of over 10 Pain control Dressing changes per Dr. Carroll 11/30/2020: Continue pain management Aggressive therapy Monitor closely 12/01/2020: Monitor blood sugar closely Brittle diabetes noted Pain control 12/02/2020: Double portions Monitor sugar Pain control 12/03/2020: Maintain pain meds Discussed smoking cessation 12/04/2020 Continue current treatment Monitor closely Discharge plan for the first of week 12/05/2020: Pain management Adjust insulin but brittle diabetes is chronic 12/06/2020: Adjust insulin Pain control Imodium for diarrhea 12/07/2020: Diarrhea resolved Pain controlled 12/08/2020: Blood sugar management Pain control (1) Hx of BKA (2) Drug overdose, multiple drugs Status: Acute (3) Amputation stump infection Status: Acute (4) T2DM (type 2 diabetes mellitus) Status: Acute (5) Septic shock Status: Resolved Resolution Date/Time: 11/20/20 @ 10:53 (6) Acute osteomyelitis of left tibia Status: Acute CHIP TAPIA DO Dec 08, 2020 09:45
[2020-12-08] MEDS: DOCUSATE SODIUM 100 MG (COLACE) CAP PO SCH ×2 (10:50→20:10)
[2020-12-08] MEDS: SENNA W/DOCUSATE (SENOKOT S) TABLET PO SCH ×2 (10:50→20:10)
[2020-12-08] MEDS: polyethylene glycoL POWDER 17 GM (MIRALAX) PACK PO SCH ×2 (10:50→20:10)
[2020-12-08] MEDS: fentaNYL INJ 100 MCG/2 ML AMP IVP PRN (15:01)
[2020-12-08] MEDS: ENOXAPARIN 40 MG/0.4 ML (LOVENOX) SYR SC SCH (16:03)
[2020-12-08 20:10] VITALS: BP 109/65
[2020-12-09] MEDS: NYSTATIN ORAL SUSP 5 ML UDC PO SCH ×3 (00:09→11:39)
[2020-12-09] MEDS ORDERED: PANT40TA52 PO (06:23)
[2020-12-09] MEDS ORDERED: NICO1PAT34 TD (06:23)
[2020-12-09] MEDS ORDERED: OXC5T PO (06:23)
[2020-12-09] MEDS ORDERED: CEPH250C PO (06:23)
--- NOTE | 2020-12-09 06:25 | D/C HH Face to Face Order ---
D/C Face to Face Orders Reconcile Patient Problems Problems Reviewed?: Yes Instructions for Patient [facility], Patient Instructions/FollowUp: PCP [address] Carroll as scheuled Physician to follow Patient: Andreatriny Discharge Diet for Home: ADA Diet Patient Problems: Left BKA Patient Data-Allergies,Ht & Wt Patient Allergies: Coded Allergies: No Known Drug Allergies (Unverified , 05/02/11) Home Health Need/Face to Face Date of Face to Face: Dec 09, 2020 Clinical Findings: Instability, Muscle weakness, Unsteady gait, Wound infection, Non-healing wound I have seen Pt gznb-ml-tstl: Yes Discharged To: Home Diagnosis/Conditions: Left BKA Patient is Homebound due to: CognItive deficits, [place] fall risk due to instabilty, Muscle weakness Homebound Status Due to the above stated illness, injury or surgical procedure (medical condition or diagnosis) and associated clinical findings, the patient is homebound because of his/her inability to leave home except with aid of a supportive device and/or person AND leaving the home requires a considerable and taxing effort or is medically contraindicated. Pt req the following assistanc: Walker, Wheelchair Home Health Nursing Orders Home Health Services Order: Nursing Services, Librarian Special Collections-Evaluate & Treat, Physical Therapy-Evaluate & Treat Certify Stmt I certify that this patient is under my care and that I, a nurse practitioner or a physician; a laboratory chemical assistant working with me, had a face to face encounter that - meets the physician face to face encounter requirements with this patient as dated. CHIP TAPIA DO Dec 09, 2020 06:25
--- NOTE | 2020-12-09 06:26 | Discharge Summary ---
Diagnosis/Chief Complaint Date of Admission Nov 28, 2020 at 10:36 Date of Discharge Discharge Date: Dec 09, 2020 Discharge Diagnosis Assessment: Status post left below the knee amputation Diabetes insulin requiring Chronic pain Status post septic shock Plan: Pain control Discontinue catheter Inpatient rehab protocol Monitor closely 11/29/2020: Brittle diabetes noted with poor control with hemoglobin A1c of over 10 Pain control Dressing changes per Dr. Carroll 11/30/2020: Continue pain management Aggressive therapy Monitor closely 12/01/2020: Monitor blood sugar closely Brittle diabetes noted Pain control 12/02/2020: Double portions Monitor sugar Pain control 12/03/2020: Maintain pain meds Discussed smoking cessation 12/04/2020 Continue current treatment Monitor closely Discharge plan for the first of week 12/05/2020: Pain management Adjust insulin but brittle diabetes is chronic 12/06/2020: Adjust insulin Pain control Imodium for diarrhea 12/07/2020: Diarrhea resolved Pain controlled 12/08/2020: Blood sugar management Pain control (1) Hx of BKA (2) Drug overdose, multiple drugs Status: Acute (3) Amputation stump infection Status: Acute (4) T2DM (type 2 diabetes mellitus) Status: Acute (5) Septic shock Status: Resolved Resolution Date/Time: 11/20/20 @ 10:53 (6) Acute osteomyelitis of left tibia Status: Acute Discharge Summary Discharge Physical Examination Allergies: Coded Allergies: No Known Drug Allergies (Unverified , 05/02/11) Vitals & I&Os Vital Signs Date Time Temp Pulse Resp B/P (MAP) Pulse Ox O2 Delivery O2 Flow Rate FiO2 12/09/20 12:12 36.6 86 18 101/69 99 Room Air General Appearance: Alert, Oriented X3, Cooperative Respiratory: Clear to Auscultation Cardiovascular: Regular Rate Psych/Mental Status: Mental Status NL Hospital Course Was the Problem List Reviewed?: Yes Hospital course: Pt had an uneventful hospital course for twelve days in inpatient rehab after undergoing a left [id number] amputation due to osteomyelitis and septic shock and out of control DM. DM was attempted to be somewhat controlled but he was very brittle, had a lot of hypoglycemia and hyperglycemia. PCP Dr. Mejia will be following up with the Pt. Pain medication sent in, Dr. Carroll will evaluate follow-up appointment also. Labs (last 24 hrs) Laboratory Tests 11/28/20 12:40: Glucometer 230H 11/28/20 16:28: Glucometer 199H 11/29/20 05:12: White Blood Count 10.6, Red Blood Count 3.62L, Hemoglobin 11.1L, Hematocrit 34L, Mean Corpuscular Volume 93, Mean Corpuscular Hemoglobin 31, Mean Corpuscular Hemoglobin Concent 33, Red Cell Distribution Width 13.3, Platelet Count 419H, Mean Platelet Volume 9.6, Immature Granulocyte % (Auto) 1, Neutrophils (%) (Auto) 74, Lymphocytes (%) (Auto) 14, Monocytes (%) (Auto) 9, Eosinophils (%) (Auto) 2, Basophils (%) (Auto) 1, Neutrophils # (Auto) 7.8, Lymphocytes # (Auto) 1.5, Monocytes # (Auto) 1.0, Eosinophils # (Auto) 0.2, Basophils # (Auto) 0.1, Immature Granulocyte # (Auto) 0.1, Sodium Level 136, Potassium Level 4.4, Chloride Level 101, Carbon Dioxide Level 23, Anion Gap 12, Blood Urea Nitrogen 17, Creatinine 0.94, Estimat Glomerular Filtration Rate > 60, BUN/Creatinine Ratio 18, Glucose Level 404*H, Mean Blood Glucose 249H, Hemoglobin A1c 10.3H, Calcium Level 9.9, Corrected Calcium 10.1, Total Bilirubin 0.5, Aspartate Amino Transf (AST/SGOT) 10, Alanine Aminotransferase (ALT/SGPT) 9, Alkaline Phosphatase 78, Total Protein 7.3, Albumin 3.7 11/29/20 06:41: Glucometer 362H 11/29/20 08:03: Glucometer 282H 11/29/20 10:55: Glucometer 127H 11/29/20 15:43: Glucometer 77 11/29/20 20:24: Glucometer 239H 11/30/20 05:36: Glucometer 379H 11/30/20 10:50: Glucometer 60*L 11/30/20 11:45: Glucometer 93 11/30/20 15:25: Glucometer 141H 11/30/20 20:05: Glucometer 124H 12/01/20 05:43: Glucometer 176H 12/01/20 10:53: Glucometer 299H 12/01/20 15:39: Glucometer 128H 12/01/20 20:33: Glucometer 135H 12/02/20 05:21: White Blood Count 10.4, Red Blood Count 3.31L, Hemoglobin 10.3L, Hematocrit 31L, Mean Corpuscular Volume 94, Mean Corpuscular Hemoglobin 31, Mean Corpuscular Hemoglobin Concent 33, Red Cell Distribution Width 13.2, Platelet Count 413H, Mean Platelet Volume 10.2, Immature Granulocyte % (Auto) 1, Neutrophils (%) (Auto) 71, Lymphocytes (%) (Auto) 18, Monocytes (%) (Auto) 7, Eosinophils (%) (Auto) 3, Basophils (%) (Auto) 1, Neutrophils # (Auto) 7.4, Lymphocytes # (Auto) 1.9, Monocytes # (Auto) 0.8, Eosinophils # (Auto) 0.3, Basophils # (Auto) 0.1, Immature Granulocyte # (Auto) 0.1, Sodium Level 137, Potassium Level 5.3H, Chloride Level 102, Carbon Dioxide Level 24, Anion Gap 11, Blood Urea Nitrogen 21H, Creatinine 0.88, Estimat Glomerular Filtration Rate > 60, BUN/Creatinine Ratio 24, Glucose Level 159H, Calcium Level 9.9, Corrected Calcium 10.3H, Total Bilirubin 0.3, Aspartate Amino Transf (AST/SGOT) 24, Alanine Aminotransferase (ALT/SGPT) 13, Alkaline Phosphatase 67, Total Protein 7.7, Albumin 3.5 12/02/20 11:00: Glucometer 132H 12/02/20 15:18: Glucometer 62L 12/02/20 17:33: Glucometer 175H 12/02/20 20:27: Glucometer 221H 12/03/20 05:55: Glucometer 300H 12/03/20 10:19: Glucometer 281H 12/03/20 16:00: Glucometer 81 12/03/20 21:02: Glucometer 174H 12/04/20 05:48: Glucometer 142H 12/04/20 11:04: Glucometer 249H 12/04/20 15:29: Glucometer 70 12/04/20 20:38: Glucometer 166H 12/05/20 05:54: Glucometer 113H 12/05/20 10:51: Glucometer 152H 12/05/20 14:30: Glucometer 55*L 12/05/20 14:57: Glucometer 107 12/05/20 15:31: Glucometer 147H 12/05/20 20:27: Glucometer 149H 12/06/20 05:14: Glucometer 136H 12/06/20 10:52: Glucometer 233H 12/06/20 14:28: Glucometer 29*L 12/06/20 14:34: Glucometer 54*L 12/06/20 14:51: Glucometer 98 12/06/20 15:31: Glucometer 89 12/06/20 18:28: White Blood Count 8.9, Red Blood Count 3.13L, Hemoglobin 9.6L, Hematocrit 30L, Mean Corpuscular Volume 94, Mean Corpuscular Hemoglobin 31, Mean Corpuscular Hemoglobin Concent 33, Red Cell Distribution Width 13.2, Platelet Count 405H, Mean Platelet Volume 9.3, Immature Granulocyte % (Auto) 0, Neutrophils (%) (Auto) 72, Lymphocytes (%) (Auto) 17, Monocytes (%) (Auto) 7, Eosinophils (%) (Auto) 3, Basophils (%) (Auto) 1, Neutrophils # (Auto) 6.4, Lymphocytes # (Auto) 1.5, Monocytes # (Auto) 0.6, Eosinophils # (Auto) 0.3, Basophils # (Auto) 0.1, Immature Granulocyte # (Auto) 0.0, Sodium Level 138, Potassium Level 4.9, Chloride Level 103, Carbon Dioxide Level 22, Anion Gap 13, Blood Urea Nitrogen 16, Creatinine 0.82, Estimat Glomerular Filtration Rate > 60, BUN/Creatinine Ratio 20, Glucose Level 207H, Lactic Acid Level 1.74, Calcium Level 9.7, Corrected Calcium 9.9, Total Bilirubin 0.2, Aspartate Amino Transf (AST/SGOT) 14, Alanine Aminotransferase (ALT/SGPT) 16, Alkaline Phosphatase 75, Total Protein 7.1, Albumin 3.7, Procalcitonin 0.02 12/06/20 20:59: Glucometer 142H 12/07/20 05:19: Glucometer 268H 12/07/20 10:53: Glucometer 191H 12/07/20 15:51: Glucometer 103 12/07/20 21:45: Glucometer 205H 12/08/20 05:57: Glucometer 247H 12/08/20 10:55: Glucometer 165H 12/08/20 15:43: Glucometer 211H 12/08/20 21:18: Glucometer 220H 12/09/20 06:27: Glucometer 208H 12/09/20 10:46: Glucometer 186H Pending Labs Laboratory Tests 11/28/20 12:40: Glucometer 230 11/28/20 16:28: Glucometer 199 11/29/20 05:12: White Blood Count 10.6, Red Blood Count 3.62, Hemoglobin 11.1, Hematocrit 34, Mean Corpuscular Volume 93, Mean Corpuscular Hemoglobin 31, Mean Corpuscular Hemoglobin Concent 33, Red Cell Distribution Width 13.3, Platelet Count 419, M isaiah Platelet Volume 9.6, Immature Granulocyte % (Auto) 1, Neutrophils (%) (Auto) 74, Lymphocytes (%) (Auto) 14, Monocytes (%) (Auto) 9, Eosinophils (%) (Auto) 2, Basophils (%) (Auto) 1, Neutrophils # (Auto) 7.8, Lymphocytes # (Auto) 1.5, Monocytes # (Auto) 1.0, Eosinophils # (Auto) 0.2, Basophils # (Auto) 0.1, Immature Granulocyte # (Auto) 0.1, Sodium Level 136, Potassium Level 4.4, Chloride Level 101, Carbon Dioxide Level 23, Anion Gap 12, Blood Urea Nitrogen 17, Creatinine 0.94, Estimat Glomerular Filtration Rate > 60, BUN/Creatinine Ratio 18, Glucose Level 404, Mean Blood Glucose 249, Hemoglobin A1c 10.3, Calcium Level 9.9, Corrected Calcium 10.1, Total Bilirubin 0.5, Aspartate Amino Transf (AST/SGOT) 10, Alanine Aminotransferase (ALT/SGPT) 9, Alkaline Ph osphatase 78, Total Protein 7.3, Albumin 3.7 11/29/20 06:41: Glucometer 362 11/29/20 08:03: Glucometer 282 11/29/20 10:55: Glucometer 127 11/29/20 15:43: Glucometer 77 11/29/20 20:24: Glucometer 239 11/30/20 05:36: Glucometer 379 11/30/20 10:50: Glucometer 60 11/30/20 11:45: Glucometer 93 11/30/20 15:25: Glucometer 141 11/30/20 20:05: Glucometer 124 12/01/20 05:43: Glucometer 176 12/01/20 10:53: Glucometer 299 12/01/20 15:39: Glucometer 128 12/01/20 20:33: Glucometer 135 12/02/20 05:21: White Blood Count 10.4, Red Blood Count 3.31, Hemoglobin 10.3, Hematocrit 31, Mean Corpuscular Volume 94, Mean Corpuscular Hemoglobin 31, Mean Corpuscular Hemoglobin Concent 33, Red Cell Distribution Width 13.2, Platelet Count 413, Mean Platelet Volume 10.2, Immature Granulocyte % (Auto) 1, Neutrophils (%) (Auto) 71, Lymphocytes (%) (Auto) 18, Monocytes (%) (Auto) 7, Eosinophils (%) (Auto) 3, Basophils (%) (Auto) 1, Neutrophils # (Auto) 7.4, Lymphocytes # (Auto) 1.9, Monocytes # (Auto) 0.8, Eosinophils # (Auto) 0.3, Basophils # (Auto) 0.1, Immature Granulocyte # (Auto) 0.1, Sodium Level 137, Potassium Level 5.3, Chloride Level 102, Carbon Dioxide Level 24, Anion Gap 11, Blood Urea Nitrogen 21, Creatinine 0.88, Estimat Glomerular Filtration Rate > 60, BUN/Creatinine Ratio 24, Glucose Level 159, Calcium Level 9.9, Corrected Calcium 10.3, Total Bilirubin 0.3, Aspartate Amino Transf (AST/SGOT) 24, Alanine Aminotransferase (ALT/SGPT) 13, Alkaline Phosphatase 67, Total Protein 7.7, Albumin 3.5 12/02/20 11:00: Glucometer 132 12/02/20 15:18: Glucometer 62 12/02/20 17:33: Glucometer 175 12/02/20 20:27: Glucometer 221 12/03/20 05:55: Glucometer 300 12/03/20 10:19: Glucometer 281 12/03/20 16:00: Glucometer 81 12/03/20 21:02: Glucometer 174 12/04/20 05:48: Glucometer 142 12/04/20 11:04: Glucometer 249 12/04/20 15:29: Glucometer 70 12/04/20 20:38: Glucometer 166 12/05/20 05:54: Glucometer 113 12/05/20 10:51: Glucometer 152 12/05/20 14:30: Glucometer 55 12/05/20 14:57: Glucometer 107 12/05/20 15:31: Glucometer 147 12/05/20 20:27: Glucometer 149 12/06/20 05:14: Glucometer 136 12/06/20 10:52: Glucometer 233 12/06/20 14:28: Glucometer 29 12/06/20 14:34: Glucometer 54 12/06/20 14:51: Glucometer 98 12/06/20 15:31: Glucometer 89 12/06/20 18:28: White Blood Count 8.9, Red Blood Count 3.13, Hemoglobin 9.6, Hematocrit 30, Mean Corpuscular Volume 94, Mean Corpuscular Hemoglobin 31, Mean Corpuscular Hemoglobin Concent 33, Red Cell Distribution Width 13.2, Platelet Count 405, Mean Platelet Volume 9.3, Immature Granulocyte % (Auto) 0, Neutrophils (%) ( Auto) 72, Lymphocytes (%) (Auto) 17, Monocytes (%) (Auto) 7, Eosinophils (%) (Auto) 3, Basophils (%) (Auto) 1, Neutrophils # (Auto) 6.4, Lymphocytes # (Auto) 1.5, Monocytes # (Auto) 0.6, Eosinophils # (Auto) 0.3, Basophils # (Auto) 0.1, Immature Granulocyte # (Auto) 0.0, Sodium Level 138, Potassium Level 4.9, Chloride Level 103, Carbon Dioxide Level 22, Anion Gap 13, Blood Urea Nitrogen 16, Creatinine 0.82, Estimat Glomerular Filtration Rate > 60, BUN/Creatinine Ratio 20, Glucose Level 207, Lactic Acid Level 1.74, Calcium Level 9.7, Corrected Calcium 9.9, Total Bilirubin 0.2, Aspartate Amino Transf (AST/SGOT) 14, Alanine Aminotransferase (ALT/SGPT) 16, Alkaline Phosphatase 75, Total Protein 7.1, Albumin 3.7, Procalcitonin 0.02 12/06/20 20:59: Glucometer 142 12/07/20 05:19: Glucometer 268 12/07/20 10:53: Glucometer 191 12/07/20 15:51: Glucometer 103 12/07/20 21:45: Glucometer 205 12/08/20 05:57: Glucometer 247 12/08/20 10:55: Glucometer 165 12/08/20 15:43: Glucometer 211 12/08/20 21:18: Glucometer 220 12/09/20 06:27: Glucometer 208 12/09/20 10:46: Glucometer 186 Discharge Home Medications: Active Scripts Active Pantoprazole Sodium 40 Mg Tablet.dr 40 Mg PO DAILY Oxyir Tablet (Oxycodone HCl) 5 Mg Tab 10 Mg PO Q8HR PRN Nicoderm Cq (Nicotine) 1 Each Patch.td24 21 Mg TD DAILY@0900 Cephalexin 250 Mg Capsule 500 Mg PO TID Reported Novolog Flexpen (Insulin Aspart) 300 Units/3 Ml Solution Units SC ACHS USES PER SLIDING SCALE Metformin HCl 1,000 Mg Tablet 1,000 Mg PO BID LAST FILLED 08-23-2020 #60/30 DAY SUPPLY Gabapentin 400 Mg Capsule 400 Mg PO TID LAST FILLED 08-23-2020 #90/30 DAY SUPPLY Basaglar Kwikpen U-100 (Insulin Glargine,Hum.rec.anlog) 100 Unit/1 Ml Insuln.pen 12 Unit SC DAILY Glyxambi 25 mg-5 mg Tablet (Empagliflozin/Linagliptin) 1 Each Tablet 1 Ea PO DAILY Ibuprofen 600 Mg Tablet 600 Mg PO Q6H PRN Instructions to patient/family Please see electronic discharge instructions given to patient. Diagnosis/Problems Diagnosis/Problems (1) Hx of BKA (2) Drug overdose, multiple drugs Status: Acute (3) Amputation stump infection Status: Acute (4) T2DM (type 2 diabetes mellitus) Status: Acute (5) Septic shock Status: Resolved Resolution Date/Time: 11/20/20 @ 10:53 (6) Acute osteomyelitis of left tibia Status: Acute CHIP TAPIA DO Dec 09, 2020 06:26
[2020-12-09] MEDS: inSUlin ASPART (NovoLOG) 1 UNIT/0.01 ML (CHARGE PER UNIT) SC SCH ×3 (06:37→11:39)
[2020-12-09 07:38] VITALS: BP 101/69
[2020-12-09] MEDS: PANTOPRAZOLE 40 MG (PROTONIX) TAB PO SCH (08:18)
[2020-12-09] MEDS: GABAPENTIN 400 MG (NEURONTIN) CAP PO SCH (08:18)
[2020-12-09] MEDS: CEPHALEXIN 250 MG (KEFLEX) CAP PO SCH (08:18)
[2020-12-09] MEDS: metFORMIN 500 MG (GLUCOPHAGE) TAB PO SCH (08:19)
--- NOTE | 2020-12-09 08:19 | Physical Therapy Daily Note ---
PT Daily Note-Current Subjective Patient in WC at bedside pre tx, refuses physical therapy initially but then states he will do "some" of it because it will loosen him up. Patient has unrated pain in left leg, nurse is aware and getting him pain meds. Appearance Patient with OT post PT Mental Status Patient Orientation: Person, Place, Situation Transfers SCALE: Activities may be completed with or without assistive devices. 2-Lzxalharyv-iacffdk completes the activity by him/herself with no assistance from a helper. 5-Set-up or Clean-up Assistance-helper sets up or cleans up; patient completes activity. Gervais assists only prior to or following the activity. 4-Supervision or Touching Assistance-helper provides verbal cues and/or touching/steadying and/or contact guard assistance as patient completes activity. Assistance may be provided throughout the activity or intermittently. 3-Partial/Moderate Assistance-helper does LESS THAN HALF the effort. Gervais lifts, holds or supports trunk or limbs, but provides less than half the effort. 2-Substantial/Maximal Assistance-helper does MORE THAN HALF the effort. Gervais lifts or holds trunk or limbs and provides more than half the effort. 2-Lzhvofhsn-ibjwza does ALL the effort. Patient does none of the effort to c omplete the activity. Or, the assistance of 2 or more helpers is required for the patient to complete the activity. If activity was not attempted, code reason: 7-Patient Refused. 9-Not Applicable-not attempted and the patient did not perform the activity before the current illness, exacerbation or injury. 10-Not Attempted due to Environmental Limitations-(lack of equipment, weather restraints, etc.). 88-Not Attempted due to Medical Conditions or Safety Concerns. Roll Left & Right (QC): 6 Sit to Lying (QC): 6 Lying to Sitting/Side of Bed(Q: 6 Sit to Stand (QC): 5 Chair/Bwy-vp-Umxak Xfer(QC): 5 Toilet Transfer (QC): 5 Car Transfer (QC): 5 Patient performs bed mobility with independence, supine <-> sit with independence, sit <-> stand and transfers with setup, car transfer with setup. Weight Bearing Right Lower Extremity: Right Full Weight Bearing Gait Training Distance: 100'x2 Walk 10 feet (QC): 5 Walk 50 ft with 2 Turns(QC): 5 Walk 150 ft (QC): 7 Walking 10ft/uneven surface-QC: 5 Gait Assistive Device: FWW Patient can ambulate 100' with a rolling walker with setup (including 50' with at least 2 turns of 90 degrees and 10' over an uneven surface). Gait is steady, has good foot clearance. Wheelchair Training Does the Pt Use a Wheelchair?: Yes Wheel 50 ft with 2 turns (QC): 6 Wheel 150 ft (QC): 6 Type of Wheelchair: Manual Stair Training 1 Step (curb) (QC): 7 4 Steps (QC): 7 12 Steps (QC): 7 Patient refuses to performs stairs, says it is a waste of his time. Patient has some stairs at home and says he will do it there or be pulled up in his WC, explained how that is unsafe and he needs to practice stairs before he goes home, he still refuses. 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 He also refused any exercises or strengthen ing. 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 PT Retirement Goals Time Frame: Dec 19, 2020 Roll Left & Right (QC): 6 Sit to Lying (QC): 6 Lying-Sitting on Side/Bed(QC): 6 Sit to Stand (QC): 5 Chair/Tzk-px-Kfikn Xfer(QC): 5 Toilet Transfer (QC): 5 Car Transfer (QC): 5 Does the Patient Walk: Yes Walk 10 feet (QC): 4 Walk 50ft with 2 Turns (QC): 4 Walk 150 ft (QC): 88 Walking 10ft on Uneven Surface: 4 1 Step (curb) (QC): 4 4 Steps (QC): 4 12 Steps (QC): 88 Picking up an Object (QC): 4 Wheel 50 feet with 2 turns (QC: 6 Wheel 150 feet: 6 PT Plan Problem List Problem List: Activity Tolerance, Functional Strength, Safety, Balance, Gait, Transfer, ROM Treatment/Plan Treatment Plan: Discontinue PT (patient discharging today) Treatment Plan: Bed Mobility, Education, Functional Activity Jessi, Functional Strength, Group Therapy, Gait, Safety, Therapeutic Exercise, Transfers Treatment Duration: Dec 19, 2020 Frequency: At least 5 of 7 days/Wk (IRF) Estimated Hrs Per Day: 1.5 hours per day Patient and/or Family Agrees t: Yes Safety Risks/Education Patient Education: Gait Training, Transfer Techniques, Correct Positioning, W/C Management, Safety Issues Teaching Recipient: Patient Teaching Methods: Demonstration, Discussion Response to Teaching: Reinforcement Needed Time/GCodes Time In: 0755 Time Out: 0810 Total Billed Treatment Time: 15 Total Billed Treatment 1 visit FA Eduardo' ITALO ESPINAL PT Dec 09, 2020 08:19
[2020-12-09] MEDS: NICOTINE 21 MG (NICODERM) PATCH TD SCH (08:20)
[2020-12-09] MEDS: polyethylene glycoL POWDER 17 GM (MIRALAX) PACK PO SCH (08:20)
[2020-12-09] MEDS: NICOTINE PATCH REMOVAL TP SCH (08:20)
[2020-12-09] MEDS: DOCUSATE SODIUM 100 MG (COLACE) CAP PO SCH (08:20)
[2020-12-09] MEDS: SENNA W/DOCUSATE (SENOKOT S) TABLET PO SCH (08:20)
--- NOTE | 2020-12-09 08:25 | Therapy Team Discharge Summary ---
Therapy Discharge Summary Discharge Recommendations Date of Discharge Physical Therapy Patient came to rehab following a left BKA. Upon evaluation patient performed bed mobility with independence, supine <-> sit SBA, sit <-> stand and transfers CGA, car transfer CGA, ambulated 6' in the parallel bars with CGA, and propelled a manual WC 150' with SBA. Patient has been performing bed mobility and transfer training, balance and endurance training, functional strengthening, stair training, gait training, and education. 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 Now, patient performs bed mobility and supine <-> sit with independence, sit <-> stand and transfers with setup, car transfer with setup, ambulates 100' with a rolling walker with setup (including 50' with at least 2 turns of 90 degrees and 10' over an uneven surface), and can propel a manual WC with independence. Patient is discharging from this facility today and will be discharged from PT at this time. Occupational Therapy Decreased Activ Tolerance, Decreased UE Strength, Dependent Transfers, Impaired Funct Balance, Impaired I ADL's, Impaired Self-Care Skills PT Interpretive Program Coordinator Goals [facility] Goals PT Interpretive Program Coordinator Goals Time Frame: Dec 19, 2020 Roll Left to Right (QC): 6 Sit to Lying (QC): 6 Lying-Sitting on Side/Bed(QC): 6 Sit to Stand (QC): 5 Chair/Bmy-tx-Qysqk Xfer(QC): 5 Car Transfer (QC): 5 Does the Patient Walk: Yes Walk 10 feet (QC): 4 Walk 10ft-Uneven Surface(QC): 4 Walk 50ft with 2 Turns (QC): 4 Walk 150 ft (QC): 88 Wheel 50 feet with 2 turns (QC: 6 1 Step (curb) (QC): 4 4 Steps (QC): 4 12 Steps (QC): 88 Picking up an Object (QC): 4 OT Interpretive Program Coordinator Goals Usp Goals Time Frame: Dec 19, 2020 Eating (QC): 6 Oral Hygiene (QC): 6 Shower/Bathe Self (QC): 4 Upper Body Dressing (QC): 6 Lower Body Dressing (QC): 6 On/Off Footwear (QC): 6 Toileting Hygiene (QC): 6 Toilet/Commode Transfer (QC): 5 Additional Goals: 1-Demonstrate ADL Tasks, 2-Verbalize Understanding, 3- ImproveStrength/Jessi 1=Demonstrate adherence to instructed precautions during ADL tasks. 2=Patient will verbalize/demonstrate understanding of assistive devices/modifications for ADL. 3=Patient will improve strength/tolerance for activity to enable patient to perform ADL's. ITALO ESPINAL PT Dec 09, 2020 08:25
--- NOTE | 2020-12-09 08:57 | Occupational Ther Daily Note ---
OT Current Status-Daily Note Subjective Pt. requests pain pill from nursing but does not report specific pain. Does acknowledge discomfort in coccyx area. OT educates him on pressure area. Pt. has bandage from nursing on. Mental Status/Objective Patient Orientation: Person, Place ADL-Treatment Therapy Code Descriptions/Definitions Functional [place] Measure: 0=Not Assessed/NA 4=Minimal Assistance 1=Total Assistance 5=Supervision or Setup 2=Maximal Assistance 6=Modified [place] 3=Moderate Assistance 7=Complete IndependenceSCALE: Activities may be completed with or without assistive devices. 1-Oqootmazpn-khioqyz completes the activity by him/herself with no assistance from a helper. 5-Set-up or Clean-up Assistance-helper sets up or cleans up; patient completes activity. [employer] assists only prior to or following the activity. 4-Supervision or Touching Assistance-helper provides verbal cues and/or touching/steadying and/or contact guard assistance as patient completes activity. Assistance may be provided throughout the activity or intermittently. 3-Partial/Moderate Assistance-helper does LESS THAN HALF the effort. [employer] lifts, holds or supports trunk or limbs, but provides less than half the effort. 2-Substantial/Maximal Assistance-helper does MORE THAN HALF the effort. [employer] lifts or holds trunk or limbs and provides more than half the effort. 5-Mbttollim-oamqhb does ALL the effort. Patient does none of the effort to complete the activity. Or, the assistance of 2 or more helpers is required for the patient to complete the activity. If activity was not attempted, code reason: 7-Patient Refused. 9-Not Applicable-not attempted and the patient did not perform the activity before the current illness, exacerbation or injury. 10-Not Attempted due to Environmental Limitations-(lack of equipment, weather restraints, etc.). 88-Not Attempted due to Medical Conditions or Safety Concerns. Eating (QC): 6 Oral Hygiene (QC): 7 (Limited dentation. Declines brushing.) Shower/Bathe Self (QC): 6 (Mod I for showering but often requests sponge bathing.) Upper Body Dressing (QC): 6 Lower Body Dressing (QC): 6 (Mod I seated on EOB.) On/Off Footwear: 6 Toileting Hygiene (QC): 6 Toilet Transfer (QC): 6 Education OT Patient Education: Correct positioning, Modified ADL techniques, Progress toward Goal/Update tx plan, Purpose of tx/functional activities, Reviewed precautions, Rehab process, Transfer techniques Teaching Recipient: Patient Teaching Methods: Demonstration, Discussion Response to Teaching: Verbalize Understanding, Return Demonstration, Reinforcement Needed OT Short Term Goals Short Term Goals Time Frame: Dec 05, 2020 Eatin Oral hygiene: 6 Toileting hygiene: 4 Shower/bathe self: 4 Upper body dressin Lower body dressin Putting on/taking off footwear: 4 OT [facility] Goals Pipe Cutter Goals Time Frame: Dec 19, 2020 Eating (QC): 6 Oral Hygiene (QC): 6 Toileting Hygiene (QC): 6 Shower/Bathe Self (QC): 4 Upper Body Dressing (QC): 6 Lower Body Dressing (QC): 6 On/Off Footwear (QC): 6 Additional Goals: 1-Demonstrate ADL Tasks, 2-Verbalize Understanding, 3- ImproveStrength/Jessi 1=Demonstrate adherence to instructed precautions during ADL tasks. 2=Patient will verbalize/demonstrate understanding of assistive devices/modifications for ADL. 3=Patient will improve strength/tolerance for activity to enable patient to perform ADL's. OT Education/Plan Problem List/Assessment Assessment: Decreased Activ Tolerance Discharge Recommendations Plan/Recommendations: Continue POC Therapy Discharge Recommendati: Home & Family Comment Pt. needs wheelchair for home use. Treatment Plan/Plan of Care Treatment,Training & Education: Yes Patient would benefit from OT for education, treatment and training to promote independence in ADL's, mobility, safety and/or upper extremity function for ADL's. Plan of Care: ADL Retraining, Functional Mobility, UE Funct Exercise/Act Treatment Duration: Dec 19, 2020 Frequency: At least 5 of 7 days/Wk (IRF) Estimated Hrs Per Day: 1.5 hours per day Agreement: Yes Rehab Potential: Fair Time/GCodes Start Time: 08:10 Stop Time: 08:45 Total Time Billed (hr/min): 35 Billed Treatment Time 1, ADL x 35minutes EVELIA FOX OT Dec 09, 2020 08:57
--- NOTE | 2020-12-09 09:02 | Therapy Team Discharge Summary ---
Therapy Discharge Summary Discharge Recommendations Date of Discharge 12-09-20 Therapy D/C Recommendations: Home w/ Family Support Occupational Therapy Pt. has been seen at this facility to increase overall strength and independence with daily skills. Pt. has met all goals at Mod I level with some safety concerns. Pt. will need wheelchair for more functional mobility at home. No further OT warranted at this time, unless pt. feels home evaluation for safety could be beneficial. Pt. will discharge home with daughter and family support. No adaptive equipment for ADLs needed. Decreased Activ Tolerance PT Fpc Goals Advanced Manufacturing Technician Goals PT Advanced Manufacturing Technician Goals Time Frame: Dec 19, 2020 Roll Left to Right (QC): 6 Sit to Lying (QC): 6 Lying-Sitting on Side/Bed(QC): 6 Sit to Stand (QC): 5 Chair/Ajo-ys-Fpjnq Xfer(QC): 5 Car Transfer (QC): 5 Does the Patient Walk: Yes Walk 10 feet (QC): 4 Walk 10ft-Uneven Surface(QC): 4 Walk 50ft with 2 Turns (QC): 4 Walk 150 ft (QC): 88 Wheel 50 feet with 2 turns (QC: 6 1 Step (curb) (QC): 4 4 Steps (QC): 4 12 Steps (QC): 88 Picking up an Object (QC): 4 OT Advanced Manufacturing Technician Goals Fpc Goals Time Frame: Dec 19, 2020 Eating (QC): 6 (met) Oral Hygiene (QC): 6 (met) Shower/Bathe Self (QC): 4 (met) Upper Body Dressing (QC): 6 (met) Lower Body Dressing (QC): 6 (met) On/Off Footwear (QC): 6 (met) Toileting Hygiene (QC): 6 (met) Toilet/Commode Transfer (QC): 5 (met) Additional Goals: 1-Demonstrate ADL Tasks, 2-Verbalize Understanding, 3- ImproveStrength/Jessi 1=Demonstrate adherence to instructed precautions during ADL tasks. 2=Patient will verbalize/demonstrate understanding of assistive devices/modifications for ADL. 3=Patient will improve strength/tolerance for activity to enable patient to perform ADL's. EVELIA FOX OT Dec 09, 2020 09:02
[2020-12-09 12:12] VITALS: BP 101/69
== END 2020-12-09 12:10 | disposition home health service (06) | DRG 561 ==
PROVIDERS: ADMIT Internal Medicine; ATTEND Internal Medicine
DX: Z47.81 Encounter for orthopedic aftercare following surgical amputation (principal); Z89.512 Acquired absence of left leg below knee; E11.65 Type 2 diabetes mellitus with hyperglycemia; E11.40 Type 2 diabetes mellitus with diabetic neuropathy, unspecified; Z79.4 Long term (current) use of insulin; Z87.891 Personal history of nicotine dependence; E11.649 Type 2 diabetes mellitus with hypoglycemia without coma; R19.7 Diarrhea, unspecified; L89.92 Pressure ulcer of unspecified site, stage 2
CPT/HCPCS: 36415; 80053; 82947; 83036; 83605; 84145; 85025

== ENCOUNTER → 2021-04-23 | Outpatient (CLI) | payer MEDICARE ==
[~2021-04-23] MED LIST changes: +CEPH250C PO; +NICO1PAT34 TD; +OXC5T PO; +PANT40TA52 PO
== END ==
LOC: WOUNDCARE 12:56
PROVIDERS: ATTEND Family Medicine
DX: M86.462 Chronic osteomyelitis with draining sinus, left tibia and fibula (principal); E11.622 Type 2 diabetes mellitus with other skin ulcer; L97.224 Non-pressure chronic ulcer of left calf with necrosis of bone; T65.292A Toxic effect of other tobacco and nicotine, intentional self-harm, initial encounter; E11.65 Type 2 diabetes mellitus with hyperglycemia; Y83.5 Amputation of limb(s) as the cause of abnormal reaction of the patient, or of later complication, without mention of misadventure at the time of the procedure
CPT/HCPCS: 87070; 87075; 87205; A6260; G0463; 99214

== ENCOUNTER → 2021-04-30 | Outpatient (CLI) | payer MEDICARE ==
--- NOTE | 2021-04-30 16:36 | Diagnostic Imaging Report ---
TECHNIQUE: Multiple Real-time grayscale images were obtained over the left lower extremity in various projections. Additional duplex Doppler and color Doppler images were also obtained. HISTORY: M86.462 recent amputee with chronic wound at the stump, left leg. COMPARISON: None. FINDINGS: Left lower extremity: There is a below the knee amputation. The arteries including the visualized common femoral, superficial femoral, and popliteal artery are patent to the level of the anastomosis. There are diffusely dampened monophasic waveforms. There are diminished velocities diffusely becoming slightly increased and with perhaps mild reversal of flow in the popliteal artery. There is some generalized soft tissue edema over the lower thigh and leg. IMPRESSION: Below the knee amputation. Major arteries of the remaining left leg are patent through the level of the popliteal artery. Overall diminished velocities are present. Definitive focal velocity change or finding to suggest high degree stenosis, however, does not appear to be present. Dictated by: Dictated on workstation # [id number]
== END ==
LOC: RAD 13:00
PROVIDERS: ATTEND Family Medicine
DX: M86.462 Chronic osteomyelitis with draining sinus, left tibia and fibula (principal); L97.224 Non-pressure chronic ulcer of left calf with necrosis of bone
CPT/HCPCS: 93926

== ENCOUNTER → 2021-05-01 | Outpatient (CLI) | payer MEDICARE | LOC: WOUNDCARE 13:51 | PROVIDERS: ATTEND Family Medicine | DX: E11.52 Type 2 diabetes mellitus with diabetic peripheral angiopathy with gangrene (principal); E11.622 Type 2 diabetes mellitus with other skin ulcer; E11.65 Type 2 diabetes mellitus with hyperglycemia; M86.462 Chronic osteomyelitis with draining sinus, left tibia and fibula; L97.224 Non-pressure chronic ulcer of left calf with necrosis of bone; T65.222A Toxic effect of tobacco cigarettes, intentional self-harm, initial encounter; B95.61 Methicillin susceptible Staphylococcus aureus infection as the cause of diseases classified elsewhere; I96 Gangrene, not elsewhere classified; Y83.5 Amputation of limb(s) as the cause of abnormal reaction of the patient, or of later complication, without mention of misadventure at the time of the procedure | CPT/HCPCS: 99212 ==

== ENCOUNTER 2021-05-08 09:19 | Inpatient (IN) | payer MEDICARE ==
[~2021-05-08] VITALS: Ht 162.6 cm; Wt 63.5 kg
[2021-05-08] VITALS (10 sets, daily range): BP systolic 111–148; BP diastolic 65–91
[2021-05-08] MEDS ORDERED: CLINDAMYCIN 600 MG/50 ML IVPB 50 ML IV ONE ×2 (10:00→10:19)
--- NOTE | 2021-05-08 10:06 | Progress Note-Pre Operative ---
Pre-Operative Progress Note H&P Reviewed The H&P was reviewed, patient examined and no changes noted. Date Seen by Provider: May 08, 2021 Time Seen by Provider: 10:05 Date H&P Reviewed: May 08, 2021 Time H&P Reviewed: 10:05 Pre-Operative Diagnosis: left infected bka KOKO ESPITIA DO May 08, 2021 10:06
[2021-05-08] MEDS: LACTATED RINGERS 1,000 ML IV PRN ×3 (10:21→13:28)
[2021-05-08] MEDS ORDERED: SEVOFLURANE (ULTANE) 15 ML INHAL SOLN ONE ×2 (10:26→13:01)
[2021-05-08] MEDS ORDERED: LIDOCAINE PF 2% 5 ML (XYLOCAINE) VIAL ONE (10:26)
[2021-05-08] MEDS ORDERED: proPOfol 200 MG/20 ML (DIPRIVAN) VIAL IV ONE (10:26)
[2021-05-08] MEDS ORDERED: ONDANSETRON 4 MG/2 ML (SDV) Z0FRAN ONE (10:26)
[2021-05-08] MEDS ORDERED: fentaNYL INJ 100 MCG/2 ML AMP ONE ×2 (10:26→13:38)
[2021-05-08] MEDS ORDERED: MIDAZOLAM 2 MG/2 ML (VERSED) VIAL ONE (10:27)
[2021-05-08] MEDS ORDERED: inSUlin ASPART (NovoLOG) 1 UNIT/0.01 ML (CHARGE PER UNIT) IV ONE (10:45)
[2021-05-08] MEDS ORDERED: PHENYLEPHRINE 100 MCG/ML 10 ML (ANESTHESIA) SYR ONE (11:48)
--- NOTE | 2021-05-08 13:10 | Anesthesia-General Post-Op ---
General Patient Condition Mental Status/LOC: Same as Preop Cardiovascular: Satisfactory Nausea/Vomiting: Absent Respiratory: Satisfactory Pain: Controlled Complications: Absent Post Op Complications Complications None Follow Up Care/Instructions Patient Instructions None needed. Anesthesia/Patient Condition Patient Condition Patient is doing well, no complaints, stable vital signs, no apparent adverse anesthesia problems. No complications reported per nursing. DAISY MCCORMACK CRNA May 08, 2021 13:09
[2021-05-08] MEDS ORDERED: fentaNYL INJ 100 MCG/2 ML AMP IVP ONE (13:15)
[2021-05-08] MEDS ORDERED: morphine INJ 10 MG/ML 1ML (SYR OR VIAL) IVP ONE (13:15)
[2021-05-08] MEDS ORDERED: MEPERIDINE (DEMEROL) INJ 50 MG/ML IVP ONE (13:15)
[2021-05-08] MEDS ORDERED: ONDANSETRON 4 MG/2 ML (SDV) Z0FRAN IVP PRN ×2 (13:15→16:00)
[2021-05-08] MEDS ORDERED: morphine INJ 10 MG/ML 1ML (SYR OR VIAL) ONE (13:18)
[2021-05-08] MEDS ORDERED: LACTATED RINGERS 1,000 ML IV ONE (13:22)
[2021-05-08] MEDS ORDERED: HYDROcodone/APAP 5 MG/325 MG (LORTAB) TAB ONE (16:24)
[2021-05-08] MEDS: HYDROcodone/APAP 5 MG/325 MG (LORTAB) TAB PO PRN ×2 (16:25→20:07)
[2021-05-08] MEDS: CLINDAMYCIN 150 MG (CLEOCIN) CAP PO SCH ×2 (17:35→20:08)
[2021-05-08] MEDS: metFORMIN 500 MG (GLUCOPHAGE) TAB PO SCH (18:21)
[2021-05-08] MEDS: GABAPENTIN 400 MG (NEURONTIN) CAP PO SCH (20:07)
[2021-05-08] MEDS: inSUlin ASPART (NovoLOG) 1 UNIT/0.01 ML (CHARGE PER UNIT) SC SCH (20:11)
[2021-05-08] MEDS: LACTATED RINGERS 1,000 ML IV SCH (20:11)
[2021-05-08] MEDS ORDERED: NON-FORMULARY MEDICATION 1 EA EA (Metformin HCl 1,000 MG) PO SCH (21:00)
[2021-05-09] VITALS (7 sets, daily range): BP systolic 93–156; BP diastolic 57–77
[2021-05-09] MEDS: HYDROcodone/APAP 5 MG/325 MG (LORTAB) TAB PO PRN ×5 (00:14→21:27)
[2021-05-09] MEDS: LACTATED RINGERS 1,000 ML IV SCH ×4 (06:11→23:51)
[2021-05-09] MEDS: inSUlin ASPART (NovoLOG) 1 UNIT/0.01 ML (CHARGE PER UNIT) SC SCH ×4 (06:12→21:28)
--- NOTE | 2021-05-09 07:00 | OPERATIVE REPORT ---
DATE OF SERVICE: 05/08/2021 PREOPERATIVE DIAGNOSIS: Infected left below-knee amputation. POSTOPERATIVE DIAGNOSIS: Infected left below-knee amputation. PROCEDURE: Revision of left below-knee amputation, washout and 10 x 7 cm wound VAC placement. SURGEON: Koko Bauer DO ANESTHESIA: General. ESTIMATED BLOOD LOSS: Minimal. COMPLICATIONS: None. INDICATIONS: The patient is a 65-year-old male, who had previous below-knee amputation. 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 The patient was discussed risks and benefits, and options and understands risks and benefits and wishes to proceed with procedure. Consent was signed in the chart. DESCRIPTION OF PROCEDURE: The patient was taken to the operating suite, was prepped and draped in sterile fashion. Timeout was performed. Cautery was used to extend the opening in the medial and lateral fashion. On opening up the stump, bunch of purulent material was erupted, culture was obtained. Then, antibiotics were given. The wound was then complete. We opened from medial to lateral. The tibia was then exposed and dissected around. An elevator was used to lift the periosteum off of the bone, to where the tibia could be revised. Once the tibia was completely dissected around, bone saw was used to transect the soft bone that was present, which had findings suggestive of osteomyelitis. The anterior portion of the bone was then cut also with the bone saw in order to shape the bone to help with pressure. The bone was then filed for smooth edges. The tibia was also located and dissected proximally to where the fibula could be transected just proximal to where the tibial length was. The wound was irrigated with copious amounts of irrigation with a power head of precision targeting. Bone wax was placed over the tibia. A wound VAC was then applied. Overall, wound dimensions 10 x 7 cm. White foam was placed over the bone and black foam was placed over the white foam and this was then secured and the foam for the wound VAC had no air leak. This was applied after the leg was washed, dried, and hemostasis was assured. The patient tolerated procedure well without any complications. He was taken to recovery room in stable condition. CC: Dr. Roberto Carlos Perez - requested, unable to deliver. Job ID: [id number] DocumentID: [id number] Dictated Date: 05/08/2021 20:58:47 Advisory Application Developer Date: 05/09/2021 06:59:01 Dictated By: KOKO BAUER DO
--- NOTE | 2021-05-09 08:16 | Progress Note - Surgery ---
FABRICIO ROWE 05/09/21 0816: Subjective Time Seen by a Provider: 07:10 Subjective/Events-last exam Patient seen at bedside this morning. He is post-op day 1 from left BKA revision with wound-vac placement. He complains of 10/10 pain but is communicating well and laying comfortably. He has no other complaints. He states he wants to take better care of himself and learn to control his diabetes better. Review of Systems General: No Chills, No Fatigue HEENT: No Head Aches, No Visual Changes Pulmonary: No Dyspnea, No Pleuritic Chest Pain Cardiovascular: No: Chest Pain, Edema Gastrointestinal: No: Nausea, Vomiting, Abdominal Pain, Diarrhea Genitourinary: No Dysuria, No Frequency Musculoskeletal: leg pain (left BKA pain ); No: arm pain Neurological: No: Weakness, Numbness Objective Exam Vital Signs Date Time Temp Pulse Resp B/P (MAP) Pulse Ox O2 Delivery O2 Flow Rate FiO2 05/09/21 08:00 36.4 77 20 117/64 (81) 98 Room Air 05/09/21 07:42 Room Air 05/09/21 04:05 36.6 75 18 123/70 (87) 97 Room Air 05/09/21 00:00 36.8 81 18 128/77 (94) 97 Room Air 05/08/21 20:27 Room Air 05/08/21 20:00 37.0 95 20 136/77 (96) 96 Room Air 05/08/21 16:27 96 Room Air 05/08/21 14:00 36.0 74 20 112/65 (81) 99 Room Air 05/08/21 13:55 Room Air 05/08/21 13:55 36.4 14 123/85 (98) 96 Room Air 05/08/21 13:50 14 123/85 (98) 96 Room Air 05/08/21 13:50 Room Air 05/08/21 13:40 16 135/84 (101) 100 Room Air 05/08/21 13:35 Room Air 05/08/21 13:30 14 138/89 (105) 100 Room Air 05/08/21 13:20 OxyMask 2 05/08/21 13:20 14 148/91 (110) 100 OxyMask 2 05/08/21 13:10 16 130/86 (101) 100 OxyMask 4 05/08/21 13:06 OxyMask 8 05/08/21 13:06 37 16 112/78 (89) 99 OxyMask 8 05/08/21 10:34 Room Air 05/08/21 10:07 36.2 77 18 111/72 (85) 100 Room Air I & O 05/09/21 07:00 Intake Total 2850 ml Output Total 900 ml Balance 1950 ml Capillary Refill : Less Than 3 Seconds General Appearance: No Apparent Distress, WD/WN HEENT: PERRL/EOMI, Normal ENT Inspection Neck: Normal Inspection, Non Tender Respiratory: Chest Non Tender, Lungs Clear, Normal Breath Sounds, No Accessory Muscle Use, No Respiratory Distress Cardiovascular: Regular Rate, Rhythm, No Edema Peripheral Pulses: 1+ Dorsalis Pedis (R); 2+ Radial Pulses (R), 2+ Radial Pulses (L) Gastrointestinal: non tender, soft; No guarding, No rebound, No tenderness Extremity: Normal Inspection, No Pedal Edema, Other (Left BKA with wound vac placement ) Neurologic/Psychiatric: Alert, Oriented x3, Normal Mood/Affect Skin: Normal Color, Warm/Dry Lymphatic: No Adenopathy Results Lab Laboratory Tests 05/08/21 10:15: Glucometer 348H 05/08/21 13:13: Glucometer 231H 05/08/21 15:46: Glucometer 224H 05/08/21 20:07: Glucometer 314H 05/09/21 05:24: Glucometer 258H Microbiology 05/08/21 MRSA Screen - Final, Complete MRSA not isolated Meds Item Value Date Time Insulin Detemir 12 unit 05/09/21 0900 (LeveMIR (PER DAILY/SQ UNIT)) Insulin Aspart INSULIN SLIDING SCALE ... 05/08/21 2100 (NovoLOG (CHARGE ACHS/SC 05/09/21 0612 PER UNIT)) Gabapentin 400 mg 05/08/212099 (Neurontin TID/PO 05/08/212006 Capsule/Tablet) Metformin HCl 1,000 mg 05/08/21 1800 (Glucophage BID WITH MEALS/PO 05/08/21 182 Tablet) Clindamycin HCl 600 mg 05/08/21 1700 (Cleocin Capsule) QID/PO 05/08/212007 Lactated Ringer's 1,000 ml @ 100 mls/hr 05/08/21 1600 Acetaminophen/ 1-2 qid 05/08/21 1600 Hydrocodone Bitart QID PRN/PO 05/09/21 0612 (Lortab 5 Mg Tablet) Ondansetron HCl 4 mg 05/08/21 1600 (Zofran QID PRN/IVP Injection (Sdv)) Lactated Ringer's 1,000 ml @ 0 mls/hr 05/08/21 1000 Assessment/Plan Assessment/Plan Assessment/Plan Left BKA revision with wound vac placement Inpatient rehab with PT/OT Increase pain control to 5mg oxycodone P.O. q4-6 hours Monitor for infection. Antibiotics if necessary Change wound vac dressing every 2-3 days Type 2 Diabetes Mellitus Control glucose below 150 Patient education PABLO BAUER DO 05/09/212034: Subjective Subjective/Events-last exam Patient states he is able to deal with the pain. Is fairly under control. He states though quite frequently 10 out of 10 pain. When he states this he is resting comfortably. He refused to work with physical therapy today. Patient needing tight glucose control which she is still elevated. He has no other complaints at this time. He denies any nausea vomiting fever sweats chills shortness of breath or chest pain. Objective Exam General Appearance: No Apparent Distress, Thin HEENT: PERRL/EOMI, Normal ENT Inspection Neck: Normal Inspection, Non Tender Respiratory: Chest Non Tender, No Accessory Muscle Use, No Respiratory Distress Cardiovascular: Regular Rate, Rhythm, No JVD Gastrointestinal: non tender, soft Extremity: Normal Inspection, Other (Left BKA with wound vac placement ) Neurologic/Psychiatric: Alert, Oriented x3, Normal Mood/Affect Skin: Normal Color, Warm/Dry Lymphatic: No Adenopathy Assessment/Plan Assessment/Plan Assessment/Plan Left BKA revision with wound vac placement Inpatient rehab with PT/OT, discussed with patient need to work with physical therapy to be further evaluated to see if qualifies for inpatient rehab. pain control Monitor for infection. Await culture sensitivities on Clindamycin Continue wound VAC Type 2 Diabetes Mellitus Tight control glucose Patient education Supervisory-Addendum Brief Verification & Attestation Participated in pt care: history, MDM, physical Personally performed: exam, history, MDM, supervision of care Care discussed with: Medical Student Procedures: n/a Results interpretation: Verified all documentation Verification and Attestation of Medical Student E/M Service A medical student performed and documented this service in my presence. I reviewed and verified all information documented by the medical student and made modifications to such information, when appropriate. I personally performed the physical exam and medical decision making. Pablo Bauer, May 09, 2021,20:34 FABRICIO ROWE May 09, 2021 08:16 PABLO BAUER DO May 09, 2021 20:35
[2021-05-09] MEDS: GABAPENTIN 400 MG (NEURONTIN) CAP PO SCH ×3 (09:39→20:06)
[2021-05-09] MEDS: CLINDAMYCIN 150 MG (CLEOCIN) CAP PO SCH ×4 (09:39→20:05)
[2021-05-09] MEDS: metFORMIN 500 MG (GLUCOPHAGE) TAB PO SCH ×2 (09:40→17:26)
--- NOTE | 2021-05-09 10:43 | Physical Therapy Progress Note ---
Therapy Progress Note Patient adamantly refused all PT intervention due to, as patient states, "I know how to do the things I need to do." RN present and Physician notified. No PT at this time. 1 ref/DC GILMAR MONTERROSO PT May 09, 2021 10:43
--- NOTE | 2021-05-09 15:14 | Consultation ---
HPI History of Present Illness: 65 yo M that was seen by Dr Bauer for an infected Left BKA infection. Asked to see patient to help with blood sugar management. Patient states that he does not take his insulin at the time. He does not check his blood sugars consistently at home. Denies any symptoms of low blood sugars. Source: patient Exam Limitations: no limitations Date seen by provider: May 09, 2021 Time Seen by Provider: 10:00 Attending Physician Pablo Bauer DO [facility] [place] Consult Date of Admission May 08, 2021 at 09:19 Home Medications Home Medications Reviewed patient Home Medication Reconciliation performed by pharmacy medication reconciliations maintenance service technician and/or nursing. Patients Allergies have been reviewed. Allergies Coded Allergies: No Known Drug Allergies (Unverified , 05/02/11) KLO-Nhzvpl-Gpchpa Hx Patient Social History Smoking Status: Current Everyday Smoker Alcohol Use?: Yes Tobacco type used: Cigarettes Have you traveled recently?: No Immunizations Up To Date Date of Influenza Vaccine: Apr 28, 2021 Past Medical History IDDM Uncontrolled PVD Left BKA Family Medical History Significant Family History: No Pertinent Family Hx Review of Systems ([facility]) Constitutional: no symptoms reported; No fever, No malaise, No weakness EENTM: no symptoms reported; No mouth pain, No nose congestion, No nose pain Respiratory: no symptoms reported; No cough, No dyspnea on exertion, No short of breath Cardiovascular: no symptoms reported; No chest pain, No edema, No palpitations Gastrointestinal: no symptoms reported; No abdominal pain, No constipation, No diarrhea, No nausea, No vomiting Genitourinary: no symptoms reported; No dysuria, No frequency Musculoskeletal: other (Left thigh ttp) Psychiatric/Neurological: Numbness, Weakness Reviewed Test Results Reviewed Test Results Lab Laboratory Tests Test 05/08/21 15:46 05/08/21 20:07 05/09/21 05:24 05/09/21 11:53 Range/Units Glucometer 224 H 314 H 258 H 258 H 70-110 MG/DL Physical Exam-([facility]) Physical Exam Vital Signs VS - Last 72 Hours, by Label 05/08/21 05/08/21 05/08/21 05/08/21 10:07 10:34 13:06 13:06 Temp 36.2 37 Pulse 77 Resp 18 16 B/P (MAP) 111/72 (85) 112/78 (89) Pulse Ox 100 99 O2 Delivery Room Air Room Air OxyMask OxyMask O2 Flow Rate 8 8 05/08/21 05/08/21 05/08/21 05/08/21 13:10 13:20 13:20 13:30 Resp 16 14 14 B/P (MAP) 130/86 (101) 148/91 (110) 138/89 (105) Pulse Ox 100 100 100 O2 Delivery OxyMask OxyMask OxyMask Room Air O2 Flow Rate 4 2 2 05/08/21 05/08/21 05/08/21 05/08/21 13:35 13:40 13:50 13:50 Resp 16 14 B/P (MAP) 135/84 (101) 123/85 (98) Pulse Ox 100 96 O2 Delivery Room Air Room Air Room Air Room Air 05/08/21 05/08/21 05/08/21 05/08/21 13:55 13:55 14:00 16:27 Temp 36.4 36.0 Pulse 74 Resp 14 20 B/P (MAP) 123/85 (98) 112/65 (81) Pulse Ox 96 99 96 O2 Delivery Room Air Room Air Room Air Room Air 05/08/21 05/08/21 05/09/21 05/09/21 20:00 20:27 00:00 04:05 Temp 37.0 36.8 36.6 Pulse 95 81 75 Resp 20 18 18 B/P (MAP) 136/77 (96) 128/77 (94) 123/70 (87) Pulse Ox 96 97 97 O2 Delivery Room Air Room Air Room Air Room Air 05/09/21 05/09/21 05/09/21 07:42 08:00 12:00 Temp 36.4 36.7 Pulse 77 72 Resp 20 18 B/P (MAP) 117/64 (81) 130/72 (91) Pulse Ox 98 98 O2 Delivery Room Air Room Air Room Air Capillary Refill : Less Than 3 Seconds General Appearance: WD/WN, no apparent distress HEENT: PERRL/EOMI Neck: non-tender, full range of motion, supple Respiratory: chest non-tender, lungs clear, normal breath sounds, no respiratory distress, no accessory muscle use Cardiovascular: regular rate, rhythm, no edema, no murmur Gastrointestinal: normal bowel sounds, non tender, soft, no organomegaly Extremities: no pedal edema, no calf tenderness, other (Left BKA with wound vac in place) Neurologic/Psychiatric: global sales manager II-XII nml as tested, alert, oriented x 3 Assessment/Plan Assessment/Plan (1) Infection of left below knee amputation Status: Acute Assessment & Plan: - Dr Bauer Managing, cultures pending, continue IV antibiotics and wound vac in place (2) T2DM (type 2 diabetes mellitus) Status: Acute Assessment & Plan: - Accucheck ACHSSuresh and SSI Qualifiers: Qualified Codes: E11.65 - Type 2 diabetes mellitus with hyperglycemia; Z79.4 - penitentiary (current) use of insulin KEI CAMACHO MD May 09, 2021 15:14
[2021-05-09] MEDS: ENOXAPARIN 30 MG/0.3 ML (LOVENOX) SYR SC SCH (17:27)
[2021-05-10] MEDS: HYDROcodone/APAP 5 MG/325 MG (LORTAB) TAB PO PRN ×4 (03:46→23:07)
[2021-05-10 03:47] VITALS: BP 148/77
[2021-05-10] MEDS: inSUlin ASPART (NovoLOG) 1 UNIT/0.01 ML (CHARGE PER UNIT) SC SCH ×4 (06:28→21:18)
[2021-05-10 06:51] LABS: BASOPHILS # (AUTO) 0.1 10^3/uL (0.0-0.1); BASOPHILS % (AUTO) 1 % (0-10); EOSINOPHILS # (AUTO) 0.4 10^3/uL (0.0-0.3); EOSINOPHILS % (AUTO) 4 % (0-10); HEMATOCRIT 28 % (40-54); HEMOGLOBIN 9.6 g/dL (13.3-17.7); LYMPHOCYTES # (AUTO) 1.7 10^3/uL (1.0-4.0); LYMPHOCYTES % (AUTO) 17 % (12-44); MEAN CORPUSCULAR HEMOGLOBIN 31 pg (25-34); MEAN CORPUSCULAR HGB CONC 34 g/dL (32-36); MEAN CORPUSCULAR VOLUME 91 fL (80-99); MONOCYTES # (AUTO) 0.7 10^3/uL (0.0-1.0); MONOCYTES % (AUTO) 7 % (0-12); NEUTROPHILS # (AUTO) 7.1 10^3/uL (1.8-7.8); NEUTROPHILS % (AUTO) 72 % (42-75); PLATELET COUNT 226 10^3/uL (130-400); WHITE BLOOD COUNT 9.9 10^3/uL (4.3-11.0)
[2021-05-10 07:01] LABS: ALBUMIN 3.1 GM/DL (3.2-4.5); POTASSIUM 3.4 MMOL/L (3.6-5.0)
[2021-05-10 07:02] LABS: CALCIUM 8.1 MG/DL (8.5-10.1)
[2021-05-10 07:03] LABS: TOTAL PROTEIN 5.2 GM/DL (6.4-8.2)
[2021-05-10 07:05] LABS: BILIRUBIN,TOTAL 0.2 MG/DL (0.1-1.0)
[2021-05-10 07:07] LABS: CREATININE SERUM 0.81 MG/DL (0.60-1.30)
[2021-05-10 07:10] VITALS: BP 133/76
--- NOTE | 2021-05-10 07:30 | Progress Note - Surgery ---
FABRICIO ROWE 05/10/21 0730: Subjective Time Seen by a Provider: 07:00 Subjective/Events-last exam Patient seen at bedside this morning. He is post-op day 2 for left BKA revision. He has no new complaints. He still complains of some pain when moving his leg which worsens towards the end of the 6 hours after hydrocodone is given. He has no fever, chills, nausea, or vomiting. Patient refused PT/OT yesterday but states that he will cooperate today and wants to coincide hydrocodone with therapy. Review of Systems General: No Chills, No Fatigue HEENT: No Head Aches, No Visual Changes Pulmonary: No Dyspnea, No Pleuritic Chest Pain Cardiovascular: No: Chest Pain, Edema Gastrointestinal: No: Nausea, Vomiting, Abdominal Pain, Diarrhea Genitourinary: No Dysuria Musculoskeletal: leg pain (left BKA ); No: arm pain Neurological: No: Weakness, Numbness Objective Exam Vital Signs Date Time Temp Pulse Resp B/P (MAP) Pulse Ox O2 Delivery O2 Flow Rate FiO2 05/10/21 07:10 36.5 71 18 133/76 (95) 97 Room Air 05/10/21 03:47 36.7 82 18 148/77 (100) 98 Room Air 05/09/21 23:42 37.2 70 18 93/57 (69) 98 Room Air 05/09/21 20:18 37.0 74 18 109/70 (83) 97 Room Air 05/09/21 20:10 Room Air 05/09/21 16:14 37.2 72 18 156/77 (103) 100 Room Air 05/09/21 12:00 36.7 72 18 130/72 (91) 98 Room Air 05/09/21 08:00 36.4 77 20 117/64 (81) 98 Room Air 05/09/21 07:42 Room Air I & O 05/10/21 07:00 Intake Total 3050 ml Output Total 2350 ml Balance 700 ml Capillary Refill : Less Than 3 Seconds General Appearance: No Apparent Distress; No Anxious; Thin HEENT: PERRL/EOMI, Normal ENT Inspection Neck: Normal Inspection, Non Tender Respiratory: Chest Non Tender, Lungs Clear, Normal Breath Sounds, No Accessory Muscle Use, No Respiratory Distress Cardiovascular: Regular Rate, Rhythm, No Edema, No JVD Peripheral Pulses: 1+ Dorsalis Pedis (R); 2+ Radial Pulses (R), 2+ Radial Pulses (L) Gastrointestinal: non tender, soft Extremity: Normal Inspection, Other (Left BKA with wound vac placement that is tender upon palpation) Neurologic/Psychiatric: Alert, Oriented x3, Normal Mood/Affect Skin: Normal Color, Warm/Dry Lymphatic: No Adenopathy Results Lab Laboratory Tests 05/09/21 11:53: Glucometer 258H 05/09/21 15:55: 05/09/21 16:18: Glucometer 159H 05/09/21 20:45: Glucometer 194H 05/10/21 06:21: White Blood Count 9.9, Red Blood Count 3.12L, Hemoglobin 9.6L, Hematocrit 28L, Mean Corpuscular Volume 91, Mean Corpuscular Hemoglobin 31, Mean Corpuscular Hemoglobin Concent 34, Red Cell Distribution Width 13.8, Platelet Count 226, Mean Platelet Volume 10.0, Immature Granulocyte % (Auto) 0, Neutrophils (%) (Auto) 72, Lymphocytes (%) (Auto) 17, Monocytes (%) (Auto) 7, Eosinophils (%) (Auto) 4, Basophils (%) (Auto) 1, Neutrophils # (Auto) 7.1, Lymphocytes # (Auto) 1.7, Monocytes # (Auto) 0.7, Eosinophils # (Auto) 0.4H, Basophils # (Auto) 0.1, Immature Granulocyte # (Auto) 0.0, Sodium Level 139, Potassium Level 3.4L, Chlor melani Level 113H, Carbon Dioxide Level 18L, Anion Gap 8, Blood Urea Nitrogen 8, Creatinine 0.81, Estimat Glomerular Filtration Rate 95, BUN/Creatinine Ratio 10, Glucose Level 210H, Glucometer 204H, Calcium Level 8.1L, Corrected Calcium 8.8, Total Bilirubin 0.2, Aspartate Amino Transf (AST/SGOT) 15, Alanine Aminotransferase (ALT/SGPT) 8, Alkaline Phosphatase 40, Total Protein 5.2L, Albu min 3.1L Microbiology 05/08/21 MRSA Screen - Final, Complete MRSA not isolated 05/08/21 Gram Stain - Final, Resulted 05/08/21 Anaerobic Culture, Resulted Pending 05/08/21 Surgical Culture - Preliminary, Resulted Staphylococcus aureus Meds Item Value Date Time Acetaminophen/ -2 11/12/21 2045 Hydrocodone Bitart Q6HR PRN/PO 05/10/21 0346 (Lortab 5 Mg Tablet) Enoxaparin Sodium 30 mg 05/09/21 1630 (Lovenox DAILY@1630/SC 05/09/21 1727 Injection) Insulin Detemir 12 unit 05/09/21 0900 (LeveMIR (PER DAILY/SQ 05/09/21 0939 UNIT)) Insulin Aspart INSULIN SLIDING SCALE ... 05/08/21 2100 (NovoLOG (CHARGE ACHS/SC 05/10/21 0628 PER UNIT)) Gabapentin 400 mg 05/08/212099 (Neurontin TID/PO 05/09/212005 Capsule/Tablet) Metformin HCl 1,000 mg 05/08/21 1800 (Glucophage BID WITH MEALS/PO 05/09/21 1726 Tablet) Clindamycin HCl 600 mg 05/08/21 1700 (Cleocin Capsule) QID/PO 05/09/212004 Lactated Ringer's 1,000 ml @ 100 mls/hr 05/08/21 1600 Ondansetron HCl 4 mg 05/08/21 1600 (Zofran QID PRN/IVP Injection (Sdv)) Lactated Ringer's 1,000 ml @ 0 mls/hr 05/08/21 1000 Assessment/Plan Assessment/Plan Assessment/Plan Left BKA revision with wound vac placement Inpatient rehab with PT/OT, discussed with patient need to work with physical therapy to be further evaluated to see if qualifies for inpatient rehab. Pain control with hydrocodone 5mg PO every 6 hours Monitor for infection. Await culture sensitivities on Clindamycin Continue wound VAC Type 2 Diabetes Mellitus Tight control glucose Patient education PABLO BAUER DO 05/10/21 1522: Subjective Subjective/Events-last exam Patient states he is doing okay. His pain is controlled with the Vicodin for the most part. Patient is willing to work with physical therapy now. Patient is tolerating diet. His blood sugars still slightly elevated. Patient has wound VAC on. Denies any other complaints. Denies nausea vomiting fever sweats chills shortness of breath or chest pain Objective Exam General Appearance: No Apparent Distress, Thin HEENT: PERRL/EOMI, Normal ENT Inspection Neck: Normal Inspection, Non Tender Respiratory: Chest Non Tender, No Accessory Muscle Use, No Respiratory Distress Cardiovascular: Regular Rate, Rhythm, No JVD Gastrointestinal: non tender, soft Extremity: Normal Inspection, Other (Left BKA with wound vac placement that is tender upon palpation, no signs of infection) Neurologic/Psychiatric: Alert, Oriented x3, Normal Mood/Affect Skin: Normal Color, Warm/Dry Lymphatic: No Adenopathy Assessment/Plan Assessment/Plan Assessment/Plan Left BKA revision with wound vac placement for infected left bka Inpatient rehab eval with PT/OT, discussed with patient need to work with physical therapy to be further evaluated to see if qualifies for inpatient rehab. Pain control with hydrocodone 5mg PO every 6 hours Monitor for infection. Await culture sensitivities on Clindamycin Continue wound VAC Type 2 Diabetes Mellitus Tight control glucose Patient education Supervisory-Addendum Brief Verification & Attestation Participated in pt care: history, MDM, physical Personally performed: exam, history, MDM, supervision of care Care discussed with: Medical Student Procedures: n/a Results interpretation: Verified all documentation Verification and Attestation of Medical Student E/M Service A medical student performed and documented this service in my presence. I reviewed and verified all information documented by the medical student and made modifications to such information, when appropriate. I personally performed the physical exam and medical decision making. Pablo Bauer, May 10, 2021,15:22 FABRICIO ROWE May 10, 2021 07:30 PABLO BAUER DO May 10, 2021 15:22
[2021-05-10] MEDS: CLINDAMYCIN 150 MG (CLEOCIN) CAP PO SCH ×4 (08:11→21:18)
[2021-05-10] MEDS: GABAPENTIN 400 MG (NEURONTIN) CAP PO SCH ×3 (08:11→21:05)
[2021-05-10] MEDS: metFORMIN 500 MG (GLUCOPHAGE) TAB PO SCH ×2 (08:11→17:37)
[2021-05-10] MEDS: LACTATED RINGERS 1,000 ML IV SCH ×2 (09:45→21:06)
--- NOTE | 2021-05-10 11:22 | Progress Note - Hospitalist ---
Subjective HPI/CC On Admission Date Seen by Provider: May 10, 2021 Time Seen by Provider: 10:45 Subjective/Events-last exam Patient is without complaint this morning he says his blood sugars are getting better. he still has some pain in his leg Objective Exam Vital Signs Vital Signs Date Time Temp Pulse Resp B/P (MAP) Pulse Ox O2 Delivery O2 Flow Rate FiO2 05/10/21 07:37 Room Air 05/10/21 07:10 36.5 71 18 133/76 (95) 97 05/08/21 13:20 2 Capillary Refill : Less Than 3 Seconds General Appearance: Chronically ill Neck: Supple Respiratory: Lungs Clear, Normal Breath Sounds, No Accessory Muscle Use, No Respiratory Distress Cardiovascular: Regular Rate, Rhythm, No Gallop, No JVD Gastrointestinal: Normal Bowel Sounds, Non Tender, Soft Neurologic/Psychiatric: Alert, Oriented x3, No Motor/Sensory Deficits, Normal 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 Assessment/Plan Assessment and Plan Assess & Plan/Chief Complaint Diabetes with improved control Postop day #2 status post left revision DARYL ALVARES MD May 10, 2021 11:22
[2021-05-10 11:37] VITALS: BP 110/67
[2021-05-10 16:20] VITALS: BP 145/76
[2021-05-10] MEDS: ENOXAPARIN 30 MG/0.3 ML (LOVENOX) SYR SC SCH (17:38)
[2021-05-10 20:01] VITALS: BP 135/78
[2021-05-11] VITALS (7 sets, daily range): BP systolic 104–150; BP diastolic 64–82
[2021-05-11] MEDS: HYDROcodone/APAP 5 MG/325 MG (LORTAB) TAB PO PRN ×3 (06:25→17:30)
[2021-05-11] MEDS: inSUlin ASPART (NovoLOG) 1 UNIT/0.01 ML (CHARGE PER UNIT) SC SCH ×4 (06:28→20:20)
[2021-05-11] MEDS: metFORMIN 500 MG (GLUCOPHAGE) TAB PO SCH ×2 (07:47→17:30)
[2021-05-11] MEDS: GABAPENTIN 400 MG (NEURONTIN) CAP PO SCH ×3 (08:57→21:02)
[2021-05-11] MEDS: CLINDAMYCIN 150 MG (CLEOCIN) CAP PO SCH ×4 (09:21→21:02)
--- NOTE | 2021-05-11 09:25 | Progress Note - Surgery ---
FABRICIO ROWE 05/11/21 0925: Subjective Time Seen by a Provider: 07:30 Subjective/Events-last exam Patient seen at bedside this morning. He is post-op day 3 for left BKA revision with wound-vac placement. He states his pain is managed with medication. He complains of diarrhea that has been on-going for the last 3 months. He has no other complaints. Review of Systems General: No Chills, No Fatigue HEENT: No Head Aches, No Visual Changes Pulmonary: No Dyspnea, No Pleuritic Chest Pain Cardiovascular: No: Chest Pain, Edema Gastrointestinal: Diarrhea; No: Nausea, Vomiting, Abdominal Pain Genitourinary: No Dysuria, No Frequency Musculoskeletal: leg pain (Phantom limb pain ); No: arm pain Neurological: No: Weakness, Numbness Objective Exam Vital Signs Date Time Temp Pulse Resp B/P (MAP) Pulse Ox O2 Delivery O2 Flow Rate FiO2 05/11/21 07:16 36.6 71 20 149/78 (101) 99 Room Air 05/11/21 04:45 36.6 66 18 138/72 (94) 99 Room Air 05/11/21 00:40 36.3 80 18 137/76 (96) 96 Room Air 05/10/21 20:01 37.4 71 22 135/78 (97) 97 Room Air 05/10/21 20:00 96 Room Air 05/10/21 16:20 37.0 75 22 145/76 (99) 95 Room Air 05/10/21 11:37 36.6 66 16 110/67 (81) 97 Room Air I & O 05/11/21 07:00 Intake Total 2300 ml Output Total 2 ml Balance 2298 ml Capillary Refill : Less Than 3 Seconds General Appearance: No Apparent Distress, Thin HEENT: PERRL/EOMI, Normal ENT Inspection Neck: Normal Inspection, Non Tender Respiratory: Chest Non Tender, No Accessory Muscle Use, No Respiratory Distress Cardiovascular: Regular Rate, Rhythm, No Edema, No JVD Peripheral Pulses: 1+ Dorsalis Pedis (R); 2+ Radial Pulses (R), 2+ Radial Pulses (L) Gastrointestinal: non tender, soft Extremity: Normal Inspection, Other (Left BKA with wound vac placement that is tender upon palpation, no signs of infection) Neurologic/Psychiatric: Alert, Oriented x3, Normal Mood/Affect Skin: Normal Color, Warm/Dry Lymphatic: No Adenopathy Results Lab Laboratory Tests 05/10/21 11:10: Glucometer 119H 05/10/21 16:25: Glucometer 206H 05/10/21 20:07: Glucometer 169H 05/11/21 06:23: Glucometer 168H Microbiology 05/08/21 MRSA Screen - Final, Complete MRSA not isolated 05/08/21 Gram Stain - Final, Resulted 05/08/21 Anaerobic Culture, Resulted Pending 05/08/21 Surgical Culture - Preliminary, Resulted Staphylococcus aureus Meds Item Value Date Time Acetaminophen/ 1-2 05/09/212044 Hydrocodone Bitart Q6HR PRN/PO 05/11/21 0625 (Lortab 5 Mg Tablet) Enoxaparin Sodium 30 mg 05/09/21 1630 (Lovenox DAILY@1630/SC 05/10/21 1738 Injection) Insulin Detemir 12 unit 05/09/21 0900 (LeveMIR (PER DAILY/SQ 05/11/21 0858 UNIT)) Insulin Aspart INSULIN SLIDING SCALE ... 05/08/21 2100 (NovoLOG (CHARGE ACHS/SC 05/11/21 0628 PER UNIT)) Gabapentin 400 mg 05/08/21 2100 (Neurontin TID/PO 05/11/21 0857 Capsule/Tablet) Metformin HCl 1,000 mg 05/08/21 1800 (Glucophage BID WITH MEALS/PO 05/11/21 0747 Tablet) Clindamycin HCl 600 mg 05/08/21 1700 (Cleocin Capsule) QID/PO 05/10/21 2118 Lactated Ringer's 1,000 ml @ 100 mls/hr 05/08/21 1600 Ondansetron HCl 4 mg 05/08/21 1600 (Zofran QID PRN/IVP Injection (Sdv)) Lactated Ringer's 1,000 ml @ 0 mls/hr 05/08/21 1000 Assessment/Plan Assessment/Plan Assessment/Plan Left BKA revision with wound vac placement for infected left bka Inpatient rehab eval with PT/OT, discussed with patient need to work with physical therapy to be further evaluated to see if qualifies for inpatient rehab. Pain control with hydrocodone 5mg PO every 6 hours Monitor for infection. Await culture sensitivities on Clindamycin Continue wound VAC. To be changed 3 times per week. Type 2 Diabetes Mellitus Tight control glucose Patient education PABLO BAUER DO 05/11/21 1449: Subjective Subjective/Events-last exam Patient is doing well. He has no complaints at this time. His pain is controlled. Patient has wound VAC in place. Denies nausea vomiting fever sweats chills shortness of breath or chest pain Objective Exam General Appearance: No Apparent Distress, Thin HEENT: PERRL/EOMI, Normal ENT Inspection Neck: Normal Inspection, Non Tender Respiratory: Chest Non Tender, No Accessory Muscle Use, No Respiratory Distress Cardiovascular: Regular Rate, Rhythm, No JVD Gastrointestinal: non tender Extremity: Normal Inspection, Other (Left BKA with wound vac placement, less tender upon palpation, no signs of infection) Neurologic/Psychiatric: Alert, Oriented x3, Normal Mood/Affect Skin: Normal Color, Warm/Dry Lymphatic: No Adenopathy Assessment/Plan Assessment/Plan Assessment/Plan Left BKA revision with wound vac placement for infected left bka Work on placement on discharge. Pain control with hydrocodone 5mg PO every 6 hours Monitor for infection. Await culture sensitivities on Clindamycin Continue wound VAC. To be changed 2 times per week. Type 2 Diabetes Mellitus Tight control glucose Patient education Supervisory-Addendum Brief Verification & Attestation Participated in pt care: history, MDM, physical Personally performed: exam, history, MDM, supervision of care Care discussed with: Medical Student Procedures: n/a Results interpretation: Verified all documentation Verification and Attestation of Medical Student E/M Service A medical student performed and documented this service in my presence. I reviewed and verified all information documented by the medical student and made modifications to such information, when appropriate. I personally performed the physical exam and medical decision making. Pablo Bauer, May 11, 2021,14:48 FABRICIO ROWE May 11, 2021 09:25 PABLO BAUER DO May 11, 2021 14:49
--- NOTE | 2021-05-11 11:39 | Progress Note - Hospitalist ---
Subjective HPI/CC On Admission Date Seen by Provider: May 11, 2021 Time Seen by Provider: 11:15 Subjective/Events-last exam Patient complains about the food today. He would like to visit with the long term care social worker tomorrow regarding placement. He has been staying with his daughter who has 11 cats and he thinks it is not a clean environment for him. Sugars are running in the 100s Objective Exam Vital Signs Vital Signs Date Time Temp Pulse Resp B/P (MAP) Pulse Ox O2 Delivery O2 Flow Rate FiO2 05/11/21 14:13 0.00 05/11/21 11:46 36.8 70 18 150/82 (104) 98 Room Air Capillary Refill : Less Than 3 Seconds General Appearance: No Apparent Distress, Chronically ill HEENT: Other (Poor dentition) Neck: Normal Inspection, Supple Respiratory: Chest Non Tender, Lungs Clear, Normal Breath Sounds, No Accessory Muscle Use, No Respiratory Distress Cardiovascular: Regular Rate, Rhythm, No Gallop, No Murmur Gastrointestinal: Normal Bowel Sounds, Non Tender, Soft Extremity: No Pedal Edema (Right), Other (Wound VAC left) Neurologic/Psychiatric: Alert, Oriented x3, No Motor/Sensory Deficits, Normal Mood/Affect Skin: Pallor Results/Procedures Lab Patient resulted labs reviewed. Assessment/Plan Assessment and Plan Assess & Plan/Chief Complaint Diabetes with improved control Postop day #2 status post left revision BKA Diarrhea-DARYL Newton MD May 11, 2021 11:39
[2021-05-11] MEDS ORDERED: BISMUTH SUBSALICYLATE 262 MG (PEPTO BISMOL) TABLET PO PRN (11:45)
[2021-05-11] MEDS: LACTATED RINGERS 1,000 ML IV SCH ×2 (14:14→17:30)
[2021-05-11] MEDS: ENOXAPARIN 30 MG/0.3 ML (LOVENOX) SYR SC SCH (16:41)
[2021-05-12] MEDS: HYDROcodone/APAP 5 MG/325 MG (LORTAB) TAB PO PRN ×4 (02:29→20:36)
[2021-05-12] MEDS: LACTATED RINGERS 1,000 ML IV SCH (02:29)
[2021-05-12 03:06] VITALS: BP 152/81
[2021-05-12] MEDS: inSUlin ASPART (NovoLOG) 1 UNIT/0.01 ML (CHARGE PER UNIT) SC SCH ×4 (05:50→20:34)
--- NOTE | 2021-05-12 07:27 | Progress Note - Surgery ---
SOLEDADFABRICIO 05/12/21 0727: Subjective Time Seen by a Provider: 06:20 Subjective/Events-last exam Patient seen at bedside this morning. He is post-op day 4 for left BKA revision with wound vac placement. He states his pain is managed with medication. He still complains of diarrhea for which Bismuth Subsalicylate is ordered. He is eating and has no nausea or vomiting. Review of Systems General: No Chills, No Fatigue HEENT: No Head Aches, No Visual Changes Pulmonary: No Dyspnea, No Pleuritic Chest Pain Cardiovascular: No: Chest Pain, Edema Gastrointestinal: Diarrhea; No: Nausea, Vomiting, Abdominal Pain Musculoskeletal: No: arm pain, leg pain Neurological: No: Weakness, Numbness Objective Exam Vital Signs Date Time Temp Pulse Resp B/P (MAP) Pulse Ox O2 Delivery O2 Flow Rate FiO2 05/12/21 03:06 36.7 68 20 152/81 (104) 98 Room Air 05/11/21 23:06 36.0 76 20 115/68 (84) 98 Room Air 05/11/21 19:30 Room Air 05/11/21 19:05 37.1 64 18 104/64 (77) 95 Room Air 05/11/21 15:30 37.3 65 20 130/78 (95) 97 Room Air 05/11/21 14:13 0.00 05/11/21 11:46 36.8 70 18 150/82 (104) 98 Room Air 05/11/21 08:00 96 Room Air I & O 05/12/21 07:00 Intake Total 3475 ml Output Total 400 ml Balance 3075 ml Capillary Refill : Less Than 3 Seconds General Appearance: No Apparent Distress, Thin HEENT: PERRL/EOMI, Normal ENT Inspection Neck: Normal Inspection, Non Tender Respiratory: Chest Non Tender, Lungs Clear, No Accessory Muscle Use, No Respiratory Distress Cardiovascular: Regular Rate, Rhythm, No JVD Peripheral Pulses: 1+ Dorsalis Pedis (R); 2+ Radial Pulses (R), 2+ Radial Pulses (L) Gastrointestinal: non tender, soft; No guarding, No rebound Extremity: Normal Inspection, Other (Left BKA with wound vac placement, less tender upon palpation, no signs of infection) Neurologic/Psychiatric: Alert, Oriented x3, Normal Mood/Affect Skin: Normal Color, Warm/Dry Lymphatic: No Adenopathy Results Lab Laboratory Tests 05/11/21 10:46: Glucometer 141H 05/11/21 16:19: Glucometer 151H 05/11/21 20:11: Glucometer 141H 05/12/21 05:44: Glucometer 250H Microbiology 05/08/21 MRSA Screen - Final, Complete MRSA not isolated 05/08/21 Gram Stain - Final, Resulted 05/08/21 Anaerobic Culture, Resulted Pending 05/08/21 Surgical Culture - Preliminary, Resulted Staphylococcus aureus Meds Item Value Date Time Bismuth 1 TAB 05/11/21 1145 Subsalicylate Q1H PRN/PO (Pepto-Bismol Chewable Tablet) Acetaminophen/ 1-2 05/09/215 Hydrocodone Bitart Q6HR PRN/PO 05/12/21 0229 (Lortab 5 Mg Tablet) Enoxaparin Sodium 30 mg 05/09/21 1630 (Lovenox DAILY@1630/SC 05/11/21 1641 Injection) Insulin Detemir 12 unit 05/09/21 0900 (LeveMIR (PER DAILY/SQ 05/11/21 0858 UNIT)) Insulin Aspart INSULIN SLIDING SCALE ... 05/08/21 2100 (NovoLOG (CHARGE ACHS/SC 05/12/21 0550 PER UNIT)) Gabapentin 400 mg 05/08/21 2100 (Neurontin TID/PO 05/11/21 2102 Capsule/Tablet) Metformin HCl 1,000 mg 05/08/21 1800 (Glucophage BID WITH MEALS/PO 05/11/21 1730 Tablet) Clindamycin HCl 600 mg 05/08/21 1700 (Cleocin Capsule) QID/PO 05/11/21 2102 Lactated Ringer's 1,000 ml @ 100 mls/hr 05/08/21 1600 Ondansetron HCl 4 mg 05/08/21 1600 (Zofran QID PRN/IVP Injection (Sdv)) Lactated Ringer's 1,000 ml @ 0 mls/hr 05/08/21 1000 Assessment/Plan Assessment/Plan Assessment/Plan Left BKA revision with wound vac placement for infected left bka Work on placement on discharge. Continue pain control with hydrocodone 5mg PO every 6 hours Monitor for infection. Await culture sensitivities on Clindamycin Continue wound VAC. To be changed 2 times per week. Type 2 Diabetes Mellitus Tight control glucose Patient education Diarrhea Bismuth subsalicylate as needed PABLO BAUER DO 05/12/212115: Subjective Subjective/Events-last exam Patient pain controlled. Wound VAC in place. Having some diarrhea likely related to antibiotics. Patient tolerating diet. Denies nausea vomiting fever sweats chills shortness of breath or chest pain. Objective Exam General Appearance: No Apparent Distress, Thin HEENT: PERRL/EOMI Neck: Normal Inspection, Non Tender Respiratory: Chest Non Tender, No Accessory Muscle Use, No Respiratory Distress Cardiovascular: Regular Rate, Rhythm, No JVD Gastrointestinal: non tender, soft Extremity: Normal Inspection, Other (Left BKA with wound vac placement, less tender upon palpation, no signs of infection) Neurologic/Psychiatric: Alert, Oriented x3, Normal Mood/Affect Skin: Normal Color, Warm/Dry Lymphatic: No Adenopathy Assessment/Plan Assessment/Plan Assessment/Plan Left BKA revision with wound vac placement for infected left bka Work on placement on discharge. Continue pain control Monitor for infection. Await culture sensitivities on Clindamycin Continue wound VAC. To be changed today. Type 2 Diabetes Mellitus Tight control glucose Patient education Supervisory-Addendum Brief Verification & Attestation Participated in pt care: history, MDM, physical Personally performed: exam, history, MDM, supervision of care Care discussed with: Medical Student Procedures: n/a Results interpretation: Verified all documentation Verification and Attestation of Medical Student E/M Service A medical student performed and documented this service in my presence. I reviewed and verified all information documented by the medical student and made modifications to such information, when appropriate. I personally performed the physical exam and medical decision making. Pablo Bauer, May 12, 2021,21:16 FABRICIO ROWE May 12, 2021 07:27 PABLO BAUER DO May 12, 2021 21:16
[2021-05-12 08:00] VITALS: BP 119/74
[2021-05-12] MEDS: metFORMIN 500 MG (GLUCOPHAGE) TAB PO SCH ×2 (08:42→16:45)
[2021-05-12] MEDS: GABAPENTIN 400 MG (NEURONTIN) CAP PO SCH ×3 (08:42→20:36)
[2021-05-12] MEDS: CLINDAMYCIN 150 MG (CLEOCIN) CAP PO SCH ×4 (08:44→20:36)
[2021-05-12 12:00] VITALS: BP 139/71
[2021-05-12] MEDS: LACTOBACILLUS ACIDOPHILUS (PROBIOTIC) CAPSULE PO SCH ×2 (12:20→16:44)
[2021-05-12] MEDS: CHOLESTYRAMINE 4 GM (QUESTRAN LITE, PREVALITE) PKT PO SCH ×3 (12:20→16:45)
--- NOTE | 2021-05-12 12:43 | Progress Note - Hospitalist ---
JAMSHID KUMARI 05/12/21 1243: Subjective HPI/CC On Admission Date Seen by Provider: May 12, 2021 Time Seen by Provider: 08:17 Subjective/Events-last exam Pt is day 4 S/P left BKA revision by Dr. Bauer. Pt is resting comfortably in bed and complains of pain from the operative site which is improved with medication. Pt also complains of diarrhea. Pt was questioning the function of the wound VAC applied to his left stump, which I explained was to aid in removal of infection and promote healing. Pt plans to work with PT today and would like to continue his care with rehab. Review of Systems General: No Chills, No Night Sweats, No Fatigue; Appetite HEENT: No Head Aches, No Visual Changes, No Dysphasia, No Sore Throat Pulmonary: No Dyspnea, No Cough, No Pleuritic Chest Pain Cardiovascular: No: Chest Pain, Palpitations, Edema, Lt Headedness Gastrointestinal: Diarrhea; No: Nausea, Vomiting, Abdominal Pain, Constipation, Melena, Hematochezia Genitourinary: No Dysuria, No Frequency, No Incontinence, No Retention Musculoskeletal: leg pain; No: neck pain, shoulder pain, back pain, hand pain Neurological: No: Weakness, Numbness, Change in speech, Confusion Objective Exam Vital Signs Vital Signs Date Time Temp Pulse Resp B/P (MAP) Pulse Ox O2 Delivery O2 Flow Rate FiO2 05/12/21 08:00 97 Room Air 05/12/21 08:00 37.0 72 18 119/74 (89) 05/11/21 14:13 0.00 Capillary Refill : Less Than 3 Seconds General Appearance: No Apparent Distress, WD/WN HEENT: PERRL/EOMI, Pharynx Normal Neck: Full Range of Motion, Non Tender, Supple Respiratory: Chest Non Tender, Lungs Clear, Normal Breath Sounds, No Accessory Muscle Use, No Respiratory Distress Cardiovascular: Regular Rate, Rhythm, No Edema, No Gallop, No Murmur, Normal Peripheral Pulses Gastrointestinal: Normal Bowel Sounds, No Organomegaly, No Pulsatile Mass, Non Tender, Soft Rectal: Deferred Back: No CVA Tenderness, No Vertebral Tenderness Extremity: Normal Capillary Refill, Normal Range of Motion, Non Tender, No Calf Tenderness, No Pedal Edema, Other (Left BKA with wound VAC applied) Neurologic/Psychiatric: Alert, Oriented x3, No Motor/Sensory Deficits, Normal 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 Assessment/Plan Assessment and Plan Assess & Plan/Chief Complaint Osteomelitis - S/P left BKA revision with wound VAC placement T2DM - hyperglycemia Plan - Continue abx & pain control Glycemic control PT and OT PADMINI TAPIA DO 05/13/21 0546: Subjective Subjective/Events-last exam Pt doing okay Complains of loose stools so ordered Probiotic and Questran [facility] is his first choice of fdc and [facility] is his second Hgb 9.6 Checked meds and labs Review of Systems General: Fatigue, Malaise Musculoskeletal: leg pain Objective Exam General Appearance: No Apparent Distress, WD/WN, Chronically ill Respiratory: Lungs Clear Cardiovascular: Regular Rate, Rhythm Assessment/Plan Assessment and Plan Assess & Plan/Chief Complaint Assessment: Left BKA revision now with wound VAC Plan: Supportive care Wound VAC Supervisory-Addendum Brief Verification & Attestation Participated in pt care: history, MDM, physical Personally performed: exam, history, MDM, supervision of care Care discussed with: Medical Student Procedures: n/a Results interpretation: Verified all documentation Verification and Attestation of Medical Student E/M Service A medical student performed and documented this service in my presence. I reviewed and verified all information documented by the medical student and made modifications to such information, when appropriate. I personally performed the physical exam and medical decision making. Padmini Tapia, May 13, 2021,05:45 JAMSHID KUMARI May 12, 2021 12:43 PADMINI TAPIA DO May 13, 2021 05:46
[2021-05-12 16:04] VITALS: BP 144/75
[2021-05-12] MEDS: ENOXAPARIN 30 MG/0.3 ML (LOVENOX) SYR SC SCH (16:44)
[2021-05-12 20:00] VITALS: BP 129/73
[2021-05-12 23:30] VITALS: BP 127/72
[2021-05-13 04:00] VITALS: BP 132/78
[2021-05-13 05:39] LABS: BASOPHILS # (AUTO) 0.1 10^3/uL (0.0-0.1); BASOPHILS % (AUTO) 1 % (0-10); EOSINOPHILS # (AUTO) 0.4 10^3/uL (0.0-0.3); EOSINOPHILS % (AUTO) 6 % (0-10); HEMATOCRIT 31 % (40-54); HEMOGLOBIN 10.5 g/dL (13.3-17.7); LYMPHOCYTES # (AUTO) 1.4 10^3/uL (1.0-4.0); LYMPHOCYTES % (AUTO) 19 % (12-44); MEAN CORPUSCULAR HEMOGLOBIN 31 pg (25-34); MEAN CORPUSCULAR HGB CONC 34 g/dL (32-36); MEAN CORPUSCULAR VOLUME 91 fL (80-99); MEAN PLATELET VOLUME 9.9 fL (9.0-12.2); MONOCYTES # (AUTO) 0.6 10^3/uL (0.0-1.0); MONOCYTES % (AUTO) 7 % (0-12); NEUTROPHILS # (AUTO) 5.2 10^3/uL (1.8-7.8); NEUTROPHILS % (AUTO) 67 % (42-75); PLATELET COUNT 265 10^3/uL (130-400); WHITE BLOOD COUNT 7.7 10^3/uL (4.3-11.0)
[2021-05-13 05:54] LABS: ALBUMIN 3.2 GM/DL (3.2-4.5); POTASSIUM 3.2 MMOL/L (3.6-5.0)
[2021-05-13 05:55] LABS: CALCIUM 8.3 MG/DL (8.5-10.1)
[2021-05-13 05:56] LABS: TOTAL PROTEIN 5.6 GM/DL (6.4-8.2)
[2021-05-13 05:58] LABS: BILIRUBIN,TOTAL 0.2 MG/DL (0.1-1.0)
[2021-05-13 06:00] LABS: CREATININE SERUM 0.74 MG/DL (0.60-1.30)
[2021-05-13] MEDS: inSUlin ASPART (NovoLOG) 1 UNIT/0.01 ML (CHARGE PER UNIT) SC SCH ×4 (06:07→20:38)
[2021-05-13] MEDS: HYDROcodone/APAP 5 MG/325 MG (LORTAB) TAB PO PRN ×3 (06:10→19:59)
[2021-05-13 07:20] VITALS: BP 162/84
--- NOTE | 2021-05-13 07:30 | Progress Note - Surgery ---
LEYDI ROWEN 05/13/21 0730: Subjective Time Seen by a Provider: 07:00 Subjective/Events-last exam Patient seen at bedside this morning. He states his pain is managed but had some during wound vac dressing change yesterday. He is sitting comfortably in bed. He still complains of diarrhea but no nausea or vomiting. Review of Systems General: No Chills, No Fatigue HEENT: No Head Aches, No Visual Changes Pulmonary: No Dyspnea, No Pleuritic Chest Pain Cardiovascular: No: Chest Pain, Edema Gastrointestinal: Diarrhea; No: Nausea, Vomiting, Abdominal Pain Genitourinary: No Dysuria, No Frequency Musculoskeletal: No: arm pain, leg pain Neurological: No: Weakness, Numbness Objective Exam Vital Signs Date Time Temp Pulse Resp B/P (MAP) Pulse Ox O2 Delivery O2 Flow Rate FiO2 05/13/21 04:00 36.0 86 18 132/78 (96) 94 Room Air 05/12/21 23:30 36.3 77 18 127/72 (90) 97 Room Air 05/12/21 20:36 Room Air 05/12/21 20:00 37.2 70 20 129/73 (91) 98 Room Air 05/12/21 16:04 37.1 75 20 144/75 (98) 98 Room Air 05/12/21 12:00 36.0 69 18 139/71 (93) 97 Room Air 05/12/21 08:00 97 Room Air 05/12/21 08:00 37.0 72 18 119/74 (89) 97 Room Air I & O 05/13/21 07:00 Intake Total 2810 ml Output Total 600 ml Balance 2210 ml Capillary Refill : Less Than 3 Seconds General Appearance: No Apparent Distress, WD/WN, Chronically ill HEENT: PERRL/EOMI, Normal ENT Inspection Neck: Normal Inspection, Non Tender Respiratory: Lungs Clear, Normal Breath Sounds, No Accessory Muscle Use, No Respiratory Distress Cardiovascular: Regular Rate, Rhythm, No Edema Peripheral Pulses: 1+ Dorsalis Pedis (R); 2+ Radial Pulses (R), 2+ Radial Pulses (L) Gastrointestinal: non tender, soft Extremity: Normal Inspection, Other (Left BKA with wound vac placement, less tender upon palpation, no signs of infection) Neurologic/Psychiatric: Alert, Oriented x3, Normal Mood/Affect Skin: Normal Color, Warm/Dry Lymphatic: No Adenopathy Results Lab Laboratory Tests 05/12/21 11:10: Glucometer 188H 05/12/21 15:18: Glucometer 121H 05/12/21 20:31: Glucometer 98 05/13/21 05:15: White Blood Count 7.7, Red Blood Count 3.36L, Hemoglobin 10.5L, Hematocrit 31L, Mean Corpuscular Volume 91, Mean Corpuscular Hemoglobin 31, Mean Corpuscular Hemoglobin Concent 34, Red Cell Distribution Width 14.0, Platelet Count 265, Mean Platelet Volume 9.9, Immature Granulocyte % (Auto) 0, Neutrophils (%) (Auto) 67, Lymphocytes (%) (Auto) 19, Monocytes (%) (Auto) 7, Eosinophils (%) (Auto) 6, Basophils (%) (Auto) 1, Neutrophils # (Auto) 5.2, Lymphocytes # (Auto) 1.4, Monocytes # (Auto) 0.6, Eosinophils # (Auto) 0.4H, Basophils # (Auto) 0.1, Immature Granulocyte # (Auto) 0.0, Sodium Level 142, Potassium Level 3.2L, Chloride Level 111H, Carbon Dioxide Level 21, Anion Gap 10, Blood Urea Nitrogen 7, Creatinine 0.74, Estimat Glomerular Filtration Rate 106, BUN/Creatinine Ratio 9, Glucose Level 134H, Calcium Level 8.3L, Corrected Calcium 8.9, Total Bilirubin 0.2, Aspartate Amino Transf (AST/SGOT) 14, Alanine Aminotransferase (ALT/SGPT) 9, Alkaline Phosphatase 45, Total Protein 5.6L, Albumin 3.2 Microbiology 05/08/21 MRSA Screen - Final, Complete MRSA not isolated 05/08/21 Gram Stain - Final, Resulted 05/08/21 Anaerobic Culture - Final, Resulted No anaerobes isolated 05/08/21 Surgical Culture - Preliminary, Resulted Staphylococcus aureus Meds Item Value Date Time Potassium Chloride 20 meq 05/13/21 0715 (K Dur Tablet) DAILY@0700/PO Lactobacillus 2 each 05/12/21 1300 Acidophilus TIDWM/PO 05/12/21 1644 (Acidophilus Pectin Capsule) Cholestyramine 4 gm 05/12/21 1100 Resin TIDWM/PO 05/12/21 1645 (Questran Lite Powder) Bismuth 1 TAB 05/11/21 1145 Subsalicylate Q1H PRN/PO (Pepto-Bismol Chewable Tablet) Acetaminophen/ 1-2 05/09/21 2045 Hydrocodone Bitart Q6HR PRN/PO 05/13/21 0610 (Lortab 5 Mg Tablet) Enoxaparin Sodium 30 mg 05/09/21 1630 (Lovenox DAILY@1630/SC 05/12/21 1644 Injection) Insulin Detemir 12 unit 05/09/21 0900 (LeveMIR (PER DAILY/SQ 05/12/21 0844 UNIT)) Insulin Aspart INSULIN SLIDING SCALE ... 05/08/21 2100 (NovoLOG (CHARGE ACHS/SC PER UNIT)) Gabapentin 400 mg 05/08/21 2100 (Neurontin TID/PO 05/12/21 203 Capsule/Tablet) Metformin HCl 1,000 mg 05/08/21 1800 (Glucophage BID WITH MEALS/PO 05/12/21 1645 Tablet) Clindamycin HCl 600 mg 05/08/21 1700 (Cleocin Capsule) QID/PO 05/12/212035 Ondansetron HCl 4 mg 05/08/21 1600 (Zofran QID PRN/IVP Injection (Sdv)) Assessment/Plan Assessment/Plan Assessment/Plan Left BKA revision with wound vac placement for infected left bka Work on placement on discharge. Continue pain control Monitor for infection. Cultures showed no anaerobic growth. Sensitivities still pending. Continue wound VAC. Changed yesterday. Type 2 Diabetes Mellitus Continue tight control glucose Patient education PABLO BAUER DO 05/13/21 190: Subjective Subjective/Events-last exam Patient doing well. Pain is under control. Patient had wound VAC changed yesterday. Patient sensitivity sensitive to clindamycin. Patient denies nausea vomiting fever sweats chills shortness of breath or chest pain. Patient working with social work for placement. Objective Exam General Appearance: No Apparent Distress, Chronically ill HEENT: PERRL/EOMI, Normal ENT Inspection Neck: Full Range of Motion, Normal Inspection, Non Tender Respiratory: Chest Non Tender, No Accessory Muscle Use, No Respiratory Distress Cardiovascular: Regular Rate, Rhythm, No Edema Gastrointestinal: non tender, soft Extremity: Other (Left BKA with wound vac placement, less tender upon palpation, no signs of infection) Neurologic/Psychiatric: Alert, Oriented x3, Normal Mood/Affect Skin: Normal Color, Warm/Dry Lymphatic: No Adenopathy Assessment/Plan Assessment/Plan Assessment/Plan Left BKA revision with wound vac placement for infected left bka Patient working with social work for placement for discharge. Continue pain control Monitor for infection. Cultures showed no anaerobic growth. Sensitivities sensitive to clindamycin Continue wound VAC. Changed yesterday. Type 2 Diabetes Mellitus Continue tight control glucose Patient education Supervisory-Addendum Brief Verification & Attestation Participated in pt care: history, MDM, physical Personally performed: exam, history, MDM, supervision of care Care discussed with: Medical Student Procedures: n/a Results interpretation: Verified all documentation Verification and Attestation of Medical Student E/M Service A medical student performed and documented this service in my presence. I reviewed and verified all information documented by the medical student and made modifications to such information, when appropriate. I personally performed the physical exam and medical decision making. Pablo Bauer, May 13, 2021,19:06 FABRICIO ROWE May 13, 2021 07:30 PABLO BAUER DO May 13, 2021 19:07
[2021-05-13] MEDS: metFORMIN 500 MG (GLUCOPHAGE) TAB PO SCH ×2 (09:13→18:41)
[2021-05-13] MEDS: LACTOBACILLUS ACIDOPHILUS (PROBIOTIC) CAPSULE PO SCH ×3 (09:13→17:47)
[2021-05-13] MEDS: KCL 20 MEQ TAB (K-DUR) PO SCH (09:13)
[2021-05-13] MEDS: CLINDAMYCIN 150 MG (CLEOCIN) CAP PO SCH ×2 (09:13→14:31)
[2021-05-13] MEDS: CHOLESTYRAMINE 4 GM (QUESTRAN LITE, PREVALITE) PKT PO SCH ×4 (09:14→17:48)
[2021-05-13] MEDS: GABAPENTIN 400 MG (NEURONTIN) CAP PO SCH ×3 (09:14→19:58)
[2021-05-13 11:20] VITALS: BP 149/66
--- NOTE | 2021-05-13 12:22 | Progress Note - Hospitalist ---
JAMSHID KUMARI 05/13/21 1222: Subjective HPI/CC On Admission Date Seen by Provider: May 13, 2021 Time Seen by Provider: 08:29 Subjective/Events-last exam Today when I visited the patient he as using the cammode. He notes that his wound vac dressing was changed yesterday which did cause some pain. He also states wound care added some Allevyn foam dressing to a couple itchy sites on his posterior. 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 Pt has no other complaints at this time. Review of Systems General: No Chills, No Night Sweats, No Fatigue; Appetite HEENT: No Head Aches, No Visual Changes, No Dysphasia, No Sore Throat Pulmonary: No Dyspnea, No Cough, No Pleuritic Chest Pain Cardiovascular: No: Chest Pain, Palpitations, Edema, Lt Headedness Gastrointestinal: No: Nausea, Vomiting, Abdominal Pain, Diarrhea, Constipation, Melena, Hematochezia Genitourinary: No Dysuria, No Frequency, No Incontinence, No Hematuria Musculoskeletal: leg pain; No: neck pain, shoulder pain, back pain, hand pain Neurological: No: Weakness, Numbness, Change in speech, Confusion, Seizures Objective Exam Vital Signs Vital Signs Date Time Temp Pulse Resp B/P (MAP) Pulse Ox O2 Delivery O2 Flow Rate FiO2 05/13/21 11:20 36.8 68 18 149/66 (93) 97 Room Air 05/11/21 14:13 0.00 Capillary Refill : Less Than 3 Seconds General Appearance: No Apparent Distress, WD/WN HEENT: PERRL/EOMI, Pharynx Normal Neck: Full Range of Motion, Non Tender, Supple Respiratory: Chest Non Tender, Lungs Clear, Normal Breath Sounds, No Accessory Muscle Use, No Respiratory Distress Cardiovascular: Regular Rate, Rhythm, No Edema, No Gallop, No Murmur, Normal Peripheral Pulses Gastrointestinal: Normal Bowel Sounds, No Organomegaly, No Pulsatile Mass, Non Tender, Soft Rectal: Deferred Back: No CVA Tenderness, No Vertebral Tenderness Extremity: Normal Capillary Refill, Normal Range of Motion, Non Tender, No Calf Tenderness, No Pedal Edema, Other (left BKA with wound vac in place) Neurologic/Psychiatric: Alert, Oriented x3, No Motor/Sensory Deficits, Normal 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 Assessment/Plan Assessment and Plan Assess & Plan/Chief Complaint Osteomelitis - S/P left BKA revision with wound VAC placement T2DM - hyperglycemia Hypokalemia Plan - Continue abx & pain control Glycemic control Potassium PO PT and OT Plan for DC to alf PADMINI TAPIA DO 05/14/21 0608: Subjective Subjective/Events-last exam Pt doing better Will need to participate in PT and OT to have skilled benefits Coccyx has decubitus ulcer stage one Potassium 3.2 I did go ahead and order supplement Review of Systems General: Fatigue, Malaise Musculoskeletal: leg pain Objective Exam General Appearance: No Apparent Distress, WD/WN, Chronically ill, Thin Neurologic/Psychiatric: Alert, Oriented x3, No Motor/Sensory Deficits, Normal Mood/Affect Assessment/Plan Assessment and Plan Assess & Plan/Chief Complaint Needs residential placement Supervisory-Addendum Brief Verification & Attestation Participated in pt care: history, MDM, physical Personally performed: exam, history, MDM, supervision of care Care discussed with: Medical Student Procedures: n/a Results interpretation: Verified all documentation Verification and Attestation of Medical Student E/M Service A medical student performed and documented this service in my presence. I reviewed and verified all information documented by the medical student and made modifications to such information, when appropriate. I personally performed the physical exam and medical decision making. Padmini Tapia May 14, 2021,06:07 JAMSHID KUMARI May 13, 2021 12:22 PADMINI TAPIA DO May 14, 2021 06:08
--- NOTE | 2021-05-13 12:45 | Occupational Therapy Eval ---
OT Evaluation-General/PLF Medical Diagnosis Admission Date May 08, 2021 at 09:19 Medical Diagnosis: Infected L BKA Onset Date: May 23, 2021 Therapy Diagnosis Therapy Diagnosis: decreased ADL status Precautions Precautions/Isolations: Standard Precautions Referral Physician: Cristo Barron Reason: Evaluation/Treatment Medical History Pertinent Medical History: COPD, DM Additional Medical History s/p L BKA November 2020, present for assessment of L stump Social History Current Living Status: Alone Pt initially indicates he lives alone, when asked about his home environment, he states he does not have a home. Later in conversation he states he has 4 steps. Home environment uncertain at this time. ADL-Prior Level of Function SCALE: Activities may be completed with or without assistive devices. 7-[id number] completes the activity by him/herself with no assistance from a helper. 5-Set-up or Clean-up Assistance-helper sets up or cleans up; patient completes activity. Austin assists only prior to or following the activity. 4-Supervision or Touching Assistance-helper provides verbal cues and/or touching/steadying and/or contact guard assistance as patient completes activity. Assistance may be provided throughout the activity or intermittently. 3-Partial/Moderate Assistance-helper does LESS THAN HALF the effort. Austin lifts, holds or supports trunk or limbs, but provides less than half the effort. 2-Substantial/Maximal Assistance-helper does MORE THAN HALF the effort. Austin lifts or holds trunk or limbs and provides more than half the effort. 0-[id number]-[id number] does ALL the effort. Patient does none of the effort to complete the activity. Or, the assistance of 2 or more helpers is required for the patient to complete the activity. If activity was not attempted, code reason: 7-Patient Refused. 9-Not Applicable-not attempted and the patient did not perform the activity before the current illness, exacerbation or injury. 10-Not Attempted due to Environmental Limitations-(lack of equipment, weather restraints, etc.). 88-Not Attempted due to Medical Conditions or Safety Concerns. ADL PLOF Comments Pt reports IND with ADLs and functional mobility, primarily uses w/c and walker since BKA surgery. He did not provide information about bathroom set up, as he informs this therapist he doesn't have a home. Self Care: Independent Functional Cognition: Independent OT Current Status Subjective Pt in bed, 1 visitor present. Pt agreeable to OT evaluation but expresses that there isn't anything people can help him with and he doesn't have good hopes of his wound healing well. Pt slightly resistive to OT, as he doesn't feel like there is anything that OT can help him with. Mental Status/Objective Patient Orientation: Person, Place, Situation Attachments: Drains (wound vac.) Current Upper Extremity ROM WFL Upper Extremity Strength grossly 4/5 ADL-Treatment Eating (QC): 6 (Per pt report.) Shower/Bathe Self (QC): 7 Lower Body Dressing (QC): 7 On/Off Footwear (QC): 7 Toileting Hygiene (QC): 7 Other Treatments Pt in bed, OT educated pt on purpose and benefit of OT. Pt then provided information about PLOF and home set up, indicating he doesn't have a house so he did not elaborate on his home environment/set up or bathroom set up. Pt declined ADLs at this time, as he just completed toileting with other staff. Pt would not replicate transfer, and did not provide information on assist level required for toileting task. Pt declined all ADLs at this time, as he feels like he is able to take care of himself. He also states he wishes people would quit wasting his time. OT provided therapeutic listening to pt and attempted to assure him that OT services would assist him in becoming more independent/safe with ADLs and mobility. Pt states he needs to order his lunch, able to grab his menu and call independently. Declines further tx at this time. Post tx, pt in bed, call light in reach and all needs met. Education OT Patient Education: Correct positioning, Modified ADL techniques, Progress toward Goal/Update tx plan, Purpose of tx/functional activities, Rehab process Teaching Recipient: Patient Teaching Methods: Discussion Response to Teaching: Reinforcement Needed OT Care Home Goals Bread Wrapping Machine Feeder Goals Time Frame: May 23, 2021 Eating (QC): 6 Oral Hygiene (QC): 6 Toileting Hygiene (QC): 4 Shower/Bathe Self (QC): 4 Upper Body Dressing (QC): 5 Lower Body Dressing (QC): 4 On/Off Footwear (QC): 4 Additional Goals: 1-Demonstrate ADL Tasks, 2-Verbalize Understanding, 3- ImproveStrength/Jessi 1=Demonstrate adherence to instructed precautions during ADL tasks. 2=Patient will verbalize/demonstrate understanding of assistive devices/modifications for ADL. 3=Patient will improve strength/tolerance for activity to enable patient to perform ADL's. OT Education/Plan Problem List/Assessment Assessment: Decreased Activ Tolerance, Decreased UE Strength, Impaired Funct Balance, Impaired I ADL's, Impaired Self-Care Skills Discharge Recommendations Plan/Recommendations: Continue POC Treatment Plan/Plan of Care Patient would benefit from OT for education, treatment and training to promote independence in ADL's, mobility, safety and/or upper extremity function for ADL's. Plan of Care: ADL Retraining, Functional Mobility, UE Funct Exercise/Act Treatment Duration: May 23, 2021 Frequency: 5 times per week Estimated Hrs Per Day: .25 hour per day Time/GCodes Start Time: 11:40 Stop Time: 11:52 Total Time Billed (hr/min): 12 Billed Treatment Time 1, DIONICIO MCLAIN OT May 13, 2021 12:45
--- NOTE | 2021-05-13 14:31 | Physical Therapy Evaluation ---
PT Evaluation-General Medical Diagnosis Admission Date May 08, 2021 at 09:19 Medical Diagnosis: Infected L BKA Onset Date: May 23, 2021 Therapy Diagnosis Therapy Diagnosis: debility/weakness Precautions Precautions/Isolations: Standard Precautions Weight Bear Status Right Lower Extremity: Right Weight Bearing/Tolerated Left Lower Extremity: Left Non Weight Bearing left amputation Referral Physician: Cristo Reason for Referral: Evaluation/Treatment Medical History Pertinent Medical History: COPD, DM Current History s/p left BKA revision due to infection (wound vac in place) Reviewed History: Yes Social History Current Living Status: Children Prior Prior Level of Function SCALE: Activities may be completed with or without assistive devices. 1-Eqvmrvruei-dnvkugb completes the activity by him/herself with no assistance from a helper. 5-Set-up or Clean-up Assistance-helper sets up or cleans up; patient completes activity. [place] assists only prior to or following the activity. 4-Supervision or Touching Assistance-helper provides verbal cues and/or touching/steadying and/or contact guard assistance as patient completes activity. Assistance may be provided throughout the activity or intermittently. 3-Partial/Moderate Assistance-helper does LESS THAN HALF the effort. [place] lifts, holds or supports trunk or limbs, but provides less than half the effort. 2-Substantial/Maximal Assistance-helper does MORE THAN HALF the effort. [place] lifts or holds trunk or limbs and provides more than half the effort. 0-Vxofxsbto-mmgtuo does ALL the effort. Patient does none of the effort to complete the activity. Or, the assistance of 2 or more helpers is required for the patient to complete the activity. If activity was not attempted, code reason: 7-Patient Refused. 9-Not Applicable-not attempted and the patient did not perform the activity before the current illness, exacerbation or injury. 10-Not Attempted due to Environmental Limitations-(lack of equipment, weather restraints, etc.). 88-Not Attempted due to Medical Conditions or Safety Concerns. Bed Mobility: 6 Transfers (B,C,W/C): 6 Gait: 9 Stairs: 9 Wheelchair Mobility: 6 Indoor Mobility (Ambulation): Not [place] Stairs: Not [place] Prior Devices Use: Manual wheelchair PT Evaluation-Current Subjective Patient agrees to PT. Objective Patient Orientation: Normal For Age wound vac left BKA ROM/Strength ROM Lower Extremities bilateral LE WFL Strength Lower Extremities left LE NT/right LE 3+/5 grossly all planes Integumentary/Posture Integumentary WFL Bowel Incontinence: No Bladder Incontinence: No Posture WFL Neuromuscular (Tone, Coordination, Reflexes) grossly intact Sensory Vision: Functional Hearing: Functional Sensation Right Lower Extremit: Impaired Sensation Left Lower Extremity: Impaired Transfers Roll Left to Right (QC): 6 Sit to Lying (QC): 6 Lying to Sitting/Side of Bed(Q: 6 Sit to Stand (QC): 6 Toilet Transfer (QC): 6 Gait Does the Patient Walk?: No and Walking Goal NOT indicated Walk 10 feet (QC): 9 Walk 50 ft with 2 Turns(QC): 9 Walk 150 ft (QC): 9 Wheelchair Training Does the Pt Use a Wheelchair?: Yes Wheel 50 ft with 2 turns (QC): 5 Type of Wheelchair: Manual Stairs 1 Step (curb) (QC): 9 4 Steps (QC): 9 12 Steps (QC): 9 Balance Sitting Static: Normal Sitting Dynamic: Normal Standing Static: Good Standing Dynamic: Good Assessment/Needs 65 y.o. male, will be seen by skilled PT to address functional strength and mobility. Patient is limited by wound vac/infection. Increase mobility. Rehab Potential: Guarded PT [facility] Goals Network Consultant Goals PT [facility] Goals Time Frame: May 24, 2021 Roll Left & Right (QC): 6 Sit to Lying (QC): 6 Lying-Sitting on Side/Bed(QC): 6 Sit to Stand (QC): 6 Chair/Nig-bm-Gwumn Xfer(QC): 6 Toilet Transfer (QC): 6 Wheel 50 feet with 2 turns (QC: 6 Type: Manual Wheel 150 feet: 6 Type: Manual PT Plan Problem List Problem List: Activity Tolerance Treatment/Plan Treatment Plan: Continue Plan of Care Treatment Plan: Education, Functional Activity Jessi, Functional Strength, Safety, Therapeutic Exercise, Transfers Treatment Duration: May 24, 2021 Frequency: 6 times per week Estimated Hrs Per Day: .25 hour per day Patient and/or Family Agrees t: Yes Time/GCodes Time In: 1341 Time Out: 1353 Total Billed Treatment Time: 12 Total Billed Treatment 1 visit EVModC 12 min GILMAR MONTERROSO PT May 13, 2021 14:31
[2021-05-13 15:27] VITALS: BP 120/72
[2021-05-13] MEDS: ENOXAPARIN 30 MG/0.3 ML (LOVENOX) SYR SC SCH (15:54)
[2021-05-13 20:54] VITALS: BP 160/83
[2021-05-14] VITALS (7 sets, daily range): BP systolic 103–160; BP diastolic 58–83
[2021-05-14] MEDS: HYDROcodone/APAP 5 MG/325 MG (LORTAB) TAB PO PRN ×4 (03:01→20:50)
[2021-05-14] MEDS: KCL 20 MEQ TAB (K-DUR) PO SCH (06:12)
[2021-05-14] MEDS: inSUlin ASPART (NovoLOG) 1 UNIT/0.01 ML (CHARGE PER UNIT) SC SCH ×4 (06:12→20:09)
--- NOTE | 2021-05-14 07:26 | Progress Note - Surgery ---
SOLEDADFABRICIO 05/14/21 0726: Subjective Time Seen by a Provider: 06:30 Subjective/Events-last exam Patient seen at bedside this morning. He is resting comfortably. He is post-op day 6 for left BKA revision with wound vac placement. He has no new complaints. His pain is managed with medication. His diarrhea is improving with cholestyramine. He is eating and having bowel movements regularly. He does not complain of fever or chills. He is able to perform activities of daily living. Review of Systems General: No Chills, No Fatigue HEENT: No Head Aches, No Visual Changes Pulmonary: No Dyspnea, No Pleuritic Chest Pain Cardiovascular: No: Chest Pain, Edema Gastrointestinal: No: Nausea, Vomiting, Abdominal Pain, Diarrhea Genitourinary: No Dysuria, No Frequency Musculoskeletal: No: arm pain, leg pain Neurological: No: Weakness, Numbness Objective Exam Vital Signs Date Time Temp Pulse Resp B/P (MAP) Pulse Ox O2 Delivery O2 Flow Rate FiO2 05/14/21 04:00 36.0 66 20 118/75 (89) 97 Room Air 05/14/21 00:00 37.0 70 20 121/69 (86) 98 Room Air 05/13/21 20:54 36.9 70 22 160/83 (108) 98 Room Air 05/13/21 20:13 Room Air 05/13/21 15:27 36.8 69 20 120/72 (88) 98 Room Air 05/13/21 11:20 36.8 68 18 149/66 (93) 97 Room Air 05/13/21 08:00 Room Air I & O 05/14/21 07:00 Intake Total 1590 ml Balance 1590 ml Capillary Refill : Less Than 3 Seconds General Appearance: No Apparent Distress, Chronically ill, Thin HEENT: PERRL/EOMI, Normal ENT Inspection Neck: Full Range of Motion, Normal Inspection, Non Tender Respiratory: Chest Non Tender, No Accessory Muscle Use, No Respiratory Distress Cardiovascular: Regular Rate, Rhythm, No Edema Peripheral Pulses: 1+ Dorsalis Pedis (R); 2+ Radial Pulses (R), 2+ Radial Pulses (L) Gastrointestinal: non tender, soft; No guarding, No rebound Extremity: Normal Inspection, No Calf Tenderness, Other (Left BKA with wound vac placement, less tender upon palpation, no signs of infection) Neurologic/Psychiatric: Alert, Oriented x3, No Motor/Sensory Deficits, Normal Mood/Affect Skin: Normal Color, Warm/Dry Lymphatic: No Adenopathy Results Lab Laboratory Tests 05/13/21 10:22: Glucometer 251H 05/13/21 15:34: Glucometer 124H 05/13/21 20:30: Glucometer 179H 05/14/21 05:47: Glucometer 224H Microbiology 05/08/21 MRSA Screen - Final, Complete MRSA not isolated 05/08/21 Gram Stain - Final, Complete 05/08/21 Anaerobic Culture - Final, Complete No anaerobes isolated 05/08/21 Surgical Culture - Final, Complete Staphylococcus aureus Meds Item Value Date Time Potassium Chloride 20 meq 05/13/21 0715 (K Dur Tablet) DAILY@0700/PO 05/14/21 0612 Lactobacillus 2 each 05/12/21 1300 Acidophilus TIDWM/PO (Acidophilus Pectin Capsule) Cholestyramine 4 gm 05/12/21 1100 Resin TIDWM/PO (Questran Lite Powder) Bismuth 1 TAB 05/11/21 1145 Subsalicylate Q1H PRN/PO (Pepto-Bismol Chewable Tablet) Acetaminophen/ 1-2 05/09/21 2045 Hydrocodone Bitart Q6HR PRN/PO 05/14/21 0301 (Lortab 5 Mg Tablet) Enoxaparin Sodium 30 mg 05/09/21 1630 (Lovenox DAILY@1630/SC 05/13/21 1554 Injection) Insulin Detemir 12 unit 05/09/21 0900 (LeveMIR (PER DAILY/SQ 05/13/21 0915 UNIT)) Insulin Aspart INSULIN SLIDING SCALE ... 05/08/21 2100 (NovoLOG (CHARGE ACHS/SC 05/14/21 0612 PER UNIT)) Gabapentin 400 mg 05/08/21 2100 (Neurontin TID/PO 05/13/21 1958 Capsule/Tablet) Metformin HCl 1,000 mg 05/08/21 1800 (Glucophage BID WITH MEALS/PO 05/13/21 1841 Tablet) Ondansetron HCl 4 mg 05/08/21 1600 (Zofran QID PRN/IVP Injection (Sdv)) Assessment/Plan Assessment/Plan Assessment/Plan Left BKA revision with wound vac placement for infected left bka Patient working with social work for placement for discharge. Patient filled out [facility] with some errors being resolved by dialysis social worker. Continue pain control. Monitor for infection. Cultures showed no anaerobic growth. Sensitivities sensitive to clindamycin. Continue clindamycin. Continue wound VAC. Changed two days ago. Type 2 Diabetes Mellitus Continue tight glucose control. Patient education. PABLO BAUER DO 05/14/211932: Subjective Subjective/Events-last exam Patient doing well. He has no complaints. Patient with wound VAC in place. Awaiting placement. Diarrhea improved. Denies any nausea vomiting fever sweats chills shortness of breath or chest pain. Objective Exam General Appearance: No Apparent Distress, Chronically ill, Thin HEENT: PERRL/EOMI, Normal ENT Inspection Neck: Full Range of Motion, Non Tender Respiratory: Chest Non Tender, No Accessory Muscle Use, No Respiratory Distress Cardiovascular: Regular Rate, Rhythm Gastrointestinal: non tender, soft Extremity: Normal Inspection, Other (Left BKA with wound vac placement, less tender upon palpation, no signs of infection) Neurologic/Psychiatric: Alert, Oriented x3, No Motor/Sensory Deficits Skin: Normal Color, Warm/Dry Lymphatic: No Adenopathy Assessment/Plan Assessment/Plan Assessment/Plan Left BKA revision with wound vac placement for infected left bka Patient working with social work for placement for discharge. Patient filled out [facility] with some errors being resolved by dialysis social worker. Continue pain control. Monitor for infection. Cultures showed no anaerobic growth. Sensitivities sensitive to clindamycin. Continue clindamycin. Continue wound VAC. Type 2 Diabetes Mellitus Continue tight glucose control. Patient education. Supervisory-Addendum Brief Verification & Attestation Participated in pt care: history, MDM, physical Personally performed: exam, history, MDM, supervision of care Care discussed with: Medical Student Procedures: n/a Results interpretation: Verified all documentation Verification and Attestation of Medical Student E/M Service A medical student performed and documented this service in my presence. I reviewed and verified all information documented by the medical student and made modifications to such information, when appropriate. I personally performed the physical exam and medical decision making. Pablo Bauer, May 14, 2021,19:33 FABRICIO ROWE May 14, 2021 07:26 PABLO BAUER DO May 14, 2021 19:33
[2021-05-14] MEDS: metFORMIN 500 MG (GLUCOPHAGE) TAB PO SCH ×2 (07:49→17:19)
[2021-05-14] MEDS: LACTOBACILLUS ACIDOPHILUS (PROBIOTIC) CAPSULE PO SCH ×3 (07:49→17:19)
[2021-05-14] MEDS: GABAPENTIN 400 MG (NEURONTIN) CAP PO SCH ×3 (07:49→20:09)
[2021-05-14] MEDS: CHOLESTYRAMINE 4 GM (QUESTRAN LITE, PREVALITE) PKT PO SCH ×3 (07:52→17:19)
--- NOTE | 2021-05-14 10:58 | Occupational Ther Daily Note ---
OT Current Status-Daily Note Subjective Pt in bed, agreeable to OT Tx. Mental Status/Objective Patient Orientation: Person, Place, Situation Attachments: Drains (wound vac) ADL-Treatment Therapy Code Descriptions/Definitions Functional [place] Measure: 0=Not Assessed/NA 4=Minimal Assistance 1=Total Assistance 5=Supervision or Setup 2=Maximal Assistance 6=Modified [place] 3=Moderate Assistance 7=Complete IndependenceSCALE: Activities may be completed with or without assistive devices. 5-Koqhysewtf-rzgreva completes the activity by him/herself with no assistance from a helper. 5-Set-up or Clean-up Assistance-helper sets up or cleans up; patient completes activity. [place] assists only prior to or following the activity. 4-Supervision or Touching Assistance-helper provides verbal cues and/or touching /steadying and/or contact guard assistance as patient completes activity. Assistance may be provided throughout the activity or intermittently. 3-Partial/Moderate Assistance-helper does LESS THAN HALF the effort. [place] lifts, holds or supports trunk or limbs, but provides less than half the effort. 2-Substantial/Maximal Assistance-helper does MORE THAN HALF the effort. [place] lifts or holds trunk or limbs and provides more than half the effort. 9-Ffheyukxk-hwpxms does ALL the effort. Patient does none of the effort to complete the activity. Or, the assistance of 2 or more helpers is required for the patient to complete the activity. If activity was not attempted, code reason: 7-Patient Refused. 9-Not Applicable-not attempted and the patient did not perform the activity before the current illness, exacerbation or injury. 10-Not Attempted due to Environmental Limitations-(lack of equipment, weather restraints, etc.). 88-Not Attempted due to Medical Conditions or Safety Concerns. Eating (QC): 6 (Per pt report.) Toileting Hygiene (QC): 6 (IND with toileting.) Toilet Transfer (QC): 6 (IND SPT to/from BSC and bed.) Other Treatment Pt in bed, SPT from EOB to BSC independently. Pt completed toileting, then transferred back to bed. Pt able to open sugars/creamers to put in his coffee, independent with eating. Post tx, pt in bed, call light in reach and all needs met. Education OT Patient Education: Correct positioning, Modified ADL techniques, Progress toward Goal/Update tx plan, Purpose of tx/functional activities, Rehab process Teaching Recipient: Patient Teaching Methods: Discussion Response to Teaching: Verbalize Understanding OT Correction Goals Correction Goals Time Frame: May 23, 2021 Eating (QC): 6 Oral Hygiene (QC): 6 Toileting Hygiene (QC): 4 Shower/Bathe Self (QC): 4 Upper Body Dressing (QC): 5 Lower Body Dressing (QC): 4 On/Off Footwear (QC): 4 Additional Goals: 1-Demonstrate ADL Tasks, 2-Verbalize Understanding, 3- ImproveStrength/Jessi 1=Demonstrate adherence to instructed precautions during ADL tasks. 2=Patient will verbalize/demonstrate understanding of assistive devices/modifications for ADL. 3=Patient will improve strength/tolerance for activity to enable patient to perform ADL's. OT Education/Plan Problem List/Assessment Assessment: Decreased Activ Tolerance, Decreased UE Strength, Impaired Funct B alance, Impaired I ADL's, Impaired Self-Care Skills Discharge Recommendations Plan/Recommendations: Continue POC Treatment Plan/Plan of Care Patient would benefit from OT for education, treatment and training to promote independence in ADL's, mobility, safety and/or upper extremity function for ADL's. Plan of Care: ADL Retraining, Functional Mobility, UE Funct Exercise/Act Treatment Duration: May 23, 2021 Frequency: 5 times per week Estimated Hrs Per Day: .25 hour per day Rehab Potential: Guarded Time/GCodes Start Time: 10:43 Stop Time: 11:07 Total Time Billed (hr/min): 24 Billed Treatment Time 1, ADL 2 DIONICIO DICKEY OT May 14, 2021 10:58
--- NOTE | 2021-05-14 12:12 | Progress Note - Hospitalist ---
DAVIDPHYLLISJAMSHID 05/14/21 1212: Subjective HPI/CC On Admission Date Seen by Provider: May 14, 2021 Time Seen by Provider: 08:12 Subjective/Events-last exam When I visited the pt today he was resting comfortably in bed. Pt states that he has been compliant with PT and is taking steps to secure placement in alf facility for continued healing and recovery to his left BKA. Pt is in good spirits. Review of Systems General: No Chills, No Night Sweats, No Fatigue, No Malaise HEENT: No Head Aches, No Visual Changes, No Dysphasia, No Sore Throat Pulmonary: No Dyspnea, No Cough, No Pleuritic Chest Pain Cardiovascular: No: Chest Pain, Palpitations, Edema, Lt Headedness Gastrointestinal: No: Nausea, Vomiting, Abdominal Pain, Diarrhea, Constipation, Melena, Hematochezia Genitourinary: No Dysuria, No Frequency, No Incontinence Musculoskeletal: leg pain; No: neck pain, shoulder pain, back pain Neurological: No: Weakness, Numbness, Change in speech, Confusion Objective Exam Vital Signs Vital Signs Date Time Temp Pulse Resp B/P (MAP) Pulse Ox O2 Delivery O2 Flow Rate FiO2 05/14/21 12:09 36.5 66 16 103/58 (73) 99 Room Air 05/11/21 14:13 0.00 Capillary Refill : Less Than 3 Seconds General Appearance: No Apparent Distress, WD/WN HEENT: PERRL/EOMI, Pharynx Normal Neck: Full Range of Motion, Non Tender, Supple Respiratory: Chest Non Tender, Lungs Clear, Normal Breath Sounds, No Accessory Muscle Use, No Respiratory Distress Cardiovascular: Regular Rate, Rhythm, No Edema, No Gallop, No Murmur, Normal Peripheral Pulses Gastrointestinal: Normal Bowel Sounds, No Organomegaly, No Pulsatile Mass, Non Tender, Soft Rectal: Deferred Back: No CVA Tenderness, No Vertebral Tenderness Extremity: Normal Capillary Refill, Normal Range of Motion, Non Tender, No Calf Tenderness, No Pedal Edema Neurologic/Psychiatric: Alert, Oriented x3, No Motor/Sensory Deficits, Normal 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 to participate in therapy in order to have some therapy notes to obtain placement or he goes back to his daughters house with 16 cats Review of Systems Musculoskeletal: leg pain Assessment/Plan Assessment and Plan Assess & Plan/Chief Complaint Needs alf placement Supervisory-Addendum Brief Verification & Attestation Participated in pt care: history, MDM, physical Personally performed: exam, history, MDM, supervision of care Care discussed with: Medical Student Procedures: n/a Results interpretation: Verified all documentation Verification and Attestation of Medical Student E/M Service A medical student performed and documented this service in my presence. I reviewed and verified all information documented by the medical student and made modifications to such information, when appropriate. I personally performed the physical exam and medical decision making. Padmini Tapia, May 15, 2021,05:45 JAMSHID KUMARI May 14, 2021 12:12 PADMINI TAPIA DO May 15, 2021 05:46
--- NOTE | 2021-05-14 13:38 | Physical Therapy Daily Note ---
PT Daily Note-Current Subjective Patient in bed pre tx, agrees to PT, voices no complaints of pain. Appearance Patient in bed post tx with nurse call, phone, tray, all needs met. Mental Status Patient Orientation: Person, Place, Situation wound vac Transfers SCALE: Activities may be completed with or without assistive devices. 6-Obauqjayez-xskcysk completes the activity by him/herself with no assistance from a helper. 5-Set-up or Clean-up Assistance-helper sets up or cleans up; patient completes activity. [place] assists only prior to or following the activity. 4-Supervision or Touching Assistance-helper provides verbal cues and/or touching/steadying and/or contact guard assistance as patient completes activity. Assistance may be provided throughout the activity or intermittently. 3-Partial/Moderate Assistance-helper does LESS THAN HALF the effort. [place] lifts, holds or supports trunk or limbs, but provides less than half the effort. 2-Substantial/Maximal Assistance-helper does MORE THAN HALF the effort. [place] lifts or holds trunk or limbs and provides more than half the effort. 4-Xejsazbzr-lagshn does ALL the effort. Patient does none of the effort to complete the activity. Or, the assistance of 2 or more helpers is required for the patient to complete the activity. If activity was not attempted, code reason: 7-Patient Refused. 9-Not Applicable-not attempted and the patient did not perform the activity before the current illness, exacerbation or injury. 10-Not Attempted due to Environmental Limitations-(lack of equipment, weather restraints, etc.). 88-Not Attempted due to Medical Conditions or Safety Concerns. Roll Left & Right (QC): 6 Sit to Lying (QC): 6 Lying to Sitting/Side of Bed(Q: 6 Sit to Stand (QC): 5 Patient sit <-> stand with setup, patient performed some standing exercises with right leg, then ambulated a few steps, then layed down and performed supine exercises. Weight Bearing Right Lower Extremity: Right Weight Bearing/Tolerated Left Lower Extremity: Left Non Weight Bearing left amputation Gait Training Distance: 10' Walk 10 feet (QC): 4 Gait Persons Needed: 1 Gait Assistive Device: FWW SBA, 5' forward and 5' back. 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 Packing Machine Operator Goals PT Snuff Packing Machine Operator Goals Time Frame: May 24, 2021 Roll Left & Right (QC): 6 Sit to Lying (QC): 6 Lying-Sitting on Side/Bed(QC): 6 Sit to Stand (QC): 6 Chair/Law-jo-Rkulj Xfer(QC): 6 Toilet Transfer (QC): 6 Wheel 50 feet with 2 turns (QC: 6 Type: Manual Wheel 150 feet: 6 Type: Manual PT Plan Problem List Problem List: Activity Tolerance, Functional Strength, Safety, Balance, Gait, Transfer Treatment/Plan Treatment Plan: Continue Plan of Care Treatment Plan: Education, Functional Activity Jessi, Functional Strength, Safety, Therapeutic Exercise, Transfers Treatment Duration: May 24, 2021 Frequency: 6 times per week Estimated Hrs Per Day: .25 hour per day Patient and/or Family Agrees t: Yes Safety Risks/Education Patient Education: Gait Training, Transfer Techniques, Correct Positioning, Safety Issues Teaching Recipient: Patient Teaching Methods: Demonstration, Discussion Response to Teaching: Reinforcement Needed Time/GCodes Time In: 1310 Time Out: 1321 Total Billed Treatment Time: 11 Total Billed Treatment 1 visit EX ITALO OROZCO PT May 14, 2021 13:38
[2021-05-14] MEDS: ENOXAPARIN 30 MG/0.3 ML (LOVENOX) SYR SC SCH (17:19)
[2021-05-15 00:38] VITALS: BP 138/75
[2021-05-15] MEDS: HYDROcodone/APAP 5 MG/325 MG (LORTAB) TAB PO PRN ×3 (02:15→13:46)
[2021-05-15 04:22] VITALS: BP 123/77
[2021-05-15 05:29] LABS: BASOPHILS # (AUTO) 0.1 10^3/uL (0.0-0.1); BASOPHILS % (AUTO) 1 % (0-10); EOSINOPHILS # (AUTO) 0.4 10^3/uL (0.0-0.3); EOSINOPHILS % (AUTO) 5 % (0-10); HEMATOCRIT 30 % (40-54); LYMPHOCYTES % (AUTO) 25 % (12-44); MEAN CORPUSCULAR HEMOGLOBIN 31 pg (25-34); MEAN CORPUSCULAR HGB CONC 33 g/dL (32-36); MEAN CORPUSCULAR VOLUME 93 fL (80-99); MEAN PLATELET VOLUME 9.7 fL (9.0-12.2); MONOCYTES # (AUTO) 0.6 10^3/uL (0.0-1.0); MONOCYTES % (AUTO) 7 % (0-12); NEUTROPHILS # (AUTO) 4.9 10^3/uL (1.8-7.8); NEUTROPHILS % (AUTO) 62 % (42-75); PLATELET COUNT 254 10^3/uL (130-400); WHITE BLOOD COUNT 7.9 10^3/uL (4.3-11.0)
[2021-05-15 06:00] LABS: ALBUMIN 3.4 GM/DL (3.2-4.5); POTASSIUM 3.8 MMOL/L (3.6-5.0)
[2021-05-15 06:01] LABS: CALCIUM 8.7 MG/DL (8.5-10.1)
[2021-05-15 06:02] LABS: TOTAL PROTEIN 5.7 GM/DL (6.4-8.2)
[2021-05-15] MEDS: inSUlin ASPART (NovoLOG) 1 UNIT/0.01 ML (CHARGE PER UNIT) SC SCH ×2 (06:03→11:00)
[2021-05-15 06:04] LABS: BILIRUBIN,TOTAL 0.2 MG/DL (0.1-1.0)
[2021-05-15 06:06] LABS: CREATININE SERUM 0.87 MG/DL (0.60-1.30)
[2021-05-15] MEDS: KCL 20 MEQ TAB (K-DUR) PO SCH (06:06)
[2021-05-15] MEDS: GABAPENTIN 400 MG (NEURONTIN) CAP PO SCH ×2 (06:06→12:40)
--- NOTE | 2021-05-15 07:14 | Progress Note - Surgery ---
SOLEDADFABRICIO 05/15/21 0713: Subjective Time Seen by a Provider: 06:40 Subjective/Events-last exam Patient seen at bedside this morning. He has no new complaints. Wound vac in place. Diarrhea is improved. Being transferred to [facility] today. He denies nausea, emesis, or chest pain. Review of Systems General: No Chills, No Fatigue HEENT: No Head Aches, No Visual Changes Pulmonary: No Dyspnea, No Pleuritic Chest Pain Cardiovascular: No: Chest Pain, Edema Gastrointestinal: No: Nausea, Vomiting Genitourinary: No Dysuria, No Frequency Musculoskeletal: leg pain (left BKA improved ); No: arm pain Neurological: No: Weakness, Numbness Objective Exam Vital Signs Date Time Temp Pulse Resp B/P (MAP) Pulse Ox O2 Delivery O2 Flow Rate FiO2 05/15/21 04:22 37.4 69 20 123/77 (92) 98 Room Air 05/15/21 00:38 36.8 67 20 138/75 (96) 97 Room Air 05/14/21 20:11 Room Air 05/14/21 19:33 36.7 70 20 127/75 (92) 96 Room Air 05/14/21 16:00 36.3 71 22 118/75 (89) 99 Room Air 05/14/21 12:09 36.5 66 16 103/58 (73) 99 Room Air 05/14/21 08:40 37.4 59 15 109/65 (80) 96 Room Air 05/14/21 08:00 99 Room Air 0.00 I & O 05/15/21 06:59 Intake Total 677 ml Output Total 500 ml Balance 177 ml Capillary Refill : Less Than 3 Seconds General Appearance: No Apparent Distress, Chronically ill, Thin HEENT: PERRL/EOMI, Normal ENT Inspection Neck: Full Range of Motion, Non Tender Respiratory: Chest Non Tender, Lungs Clear, No Accessory Muscle Use, No Respiratory Distress Cardiovascular: Regular Rate, Rhythm, No Edema Peripheral Pulses: 1+ Dorsalis Pedis (R); 2+ Radial Pulses (R), 2+ Radial Pulses (L) Gastrointestinal: non tender, soft Extremity: Normal Inspection, Other (Left BKA with wound vac placement, less tender upon palpation, no signs of infection) Neurologic/Psychiatric: Alert, Oriented x3, No Motor/Sensory Deficits Skin: Normal Color, Warm/Dry Lymphatic: No Adenopathy Results Lab Laboratory Tests 05/14/21 11:25: Glucometer 150H 05/14/21 15:28: Glucometer 196H 05/14/21 20:08: Glucometer 134H 05/15/21 05:10: White Blood Count 7.9, Red Blood Count 3.27L, Hemoglobin 10.0L, Hematocrit 30L, Mean Corpuscular Volume 93, Mean Corpuscular Hemoglobin 31, Mean Corpuscular Hemoglobin Concent 33, Red Cell Distribution Width 13.9, Platelet Count 254, Mean Platelet Volume 9.7, Immature Granulocyte % (Auto) 1, Neutrophils (%) ( Auto) 62, Lymphocytes (%) (Auto) 25, Monocytes (%) (Auto) 7, Eosinophils (%) (Auto) 5, Basophils (%) (Auto) 1, Neutrophils # (Auto) 4.9, Lymphocytes # (Auto) 2.0, Monocytes # (Auto) 0.6, Eosinophils # (Auto) 0.4H, Basophils # (Auto) 0.1, Immature Granulocyte # (Auto) 0.0, Sodium Level 140, Potassium Level 3.8, Chloride Level 109H, Carbon Dioxide Level 21, Anion Gap 10, Blood Urea Nitrogen 10, Creatinine 0.87, Estimat Glomerular Filtration Rate 88, BUN/Creatinine Ratio 11, Glucose Level 113H, Calcium Level 8.7, Corrected Calcium 9.2, Total Bilirubin 0.2, Aspartate Amino Transf (AST/SGOT) 21, Alanine Aminotransferase (ALT/SGPT) 15, Alkaline Phosphatase 42, Total Protein 5.7L, Albumin 3.4 Microbiology 05/08/21 MRSA Screen - Final, Complete MRSA not isolated 05/08/21 Gram Stain - Final, Complete 05/08/21 Anaerobic Culture - Final, Complete No anaerobes isolated 05/08/21 Surgical Culture - Final, Complete Staphylococcus aureus Meds Item Value Date Time Potassium Chloride 20 meq 05/13/21 0715 (K Dur Tablet) DAILY@0700/PO 05/15/21 0606 Lactobacillus 2 each 05/12/21 1300 Acidophilus TIDWM/PO 05/14/21 1719 (Acidophilus Pectin Capsule) Cholestyramine 4 gm 05/12/21 1100 Resin TIDWM/PO (Questran Lite Powder) Bismuth 1 TAB 05/11/21 1145 Subsalicylate Q1H PRN/PO (Pepto-Bismol Chewable Tablet) Acetaminophen/ 1-2 05/09/21 2045 Hydrocodone Bitart Q6HR PRN/PO 05/15/21 0215 (Lortab 5 Mg Tablet) Enoxaparin Sodium 30 mg 05/09/21 1630 (Lovenox DAILY@1630/SC 05/14/21 1719 Injection) Insulin Detemir 12 unit 05/09/21 0900 (LeveMIR (PER DAILY/SQ 05/14/21 0800 UNIT)) Insulin Aspart INSULIN SLIDING SCALE ... 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 Has been approved for [facility]. Continue pain control. Continue wound VAC. Type 2 Diabetes Mellitus Continue tight glucose control. Patient education. PABLO BAUER DO 05/15/21 1105: Subjective Subjective/Events-last exam Doing well, no issues. To [facility] today. Denies n/v fever sweats chills shortness of breath or chest pain. Objective Exam General Appearance: No Apparent Distress, Thin HEENT: PERRL/EOMI, Normal ENT Inspection Neck: Full Range of Motion, Non Tender Respiratory: Chest Non Tender, No Accessory Muscle Use, No Respiratory Distress Cardiovascular: Regular Rate, Rhythm, No JVD Gastrointestinal: non tender, soft Extremity: Normal Inspection, Other (wound good granulation tissue coming in, no signs of infection) Neurologic/Psychiatric: Alert, Oriented x3, No Motor/Sensory Deficits Skin: Normal Color, Warm/Dry Lymphatic: No Adenopathy Assessment/Plan Assessment/Plan Assessment/Plan Left BKA revision with wound vac placement for infected left bka Patient working with social work for placement for discharge to [facility]. Continue pain control. Continue wound VAC. Type 2 Diabetes Mellitus Continue tight glucose control. Patient education. Supervisory-Addendum Brief Verification & Attestation Participated in pt care: history, MDM, physical Personally performed: exam, history, MDM, supervision of care Care discussed with: Medical Student Procedures: n/a Results interpretation: Verified all documentation Verification and Attestation of Medical Student E/M Service A medical student performed and documented this service in my presence. I reviewed and verified all information documented by the medical student and made modifications to such information, when appropriate. I personally performed the physical exam and medical decision making. Pablo Bauer, May 15, 2021,11:05 FABRICIO ROWE May 15, 2021 07:13 PABLO BAUER DO May 15, 2021 11:05
[2021-05-15] MEDS: CHOLESTYRAMINE 4 GM (QUESTRAN LITE, PREVALITE) PKT PO SCH ×2 (07:37→12:23)
[2021-05-15 07:48] VITALS: BP 165/63
[2021-05-15] MEDS: LACTOBACILLUS ACIDOPHILUS (PROBIOTIC) CAPSULE PO SCH ×2 (08:37→12:40)
[2021-05-15] MEDS: metFORMIN 500 MG (GLUCOPHAGE) TAB PO SCH (08:38)
[2021-05-15] MEDS ORDERED: ACHD5005 PO ×2 (11:09→18:38)
--- NOTE | 2021-05-15 11:11 | Discharge Inst-Simple/Standard ---
Discharge Inst-Standard Discharge Medications New, Converted or Re-Newed RX: Transmitted to Pharmacy Patient Instructions/Follow Up Plan of Care/Instructions/FU: 3 weeks carlin Activity as Tolerated: No Discharge Diet: Regular Diet (diabetic) Other Inst to Patient Follow up Appt: Make appointment for 3 week. Instructions: No lifting greater than 10 pounds. No strenuous activity. May shower in 24 hours, no tub bath or soaking. Use incentive spirometer at home as directed. No Smoking Skin/Wound Care: You have wound vac in place. It will be changed on Mondays and . Symptoms to Report: Appetite Changes, Extremity Discoloration, Numbness/Tingling, Swelling Increased, Bleeding Excessive, Eyesight Changes, Pain Increased, Urine Color Change, Constipation(Persistent), Fever over 101 degree F, Pain/Pressure in chest, Urinating Difficulty, Cough Up/Vomit Blood, Heart Beat Irreg/Pounding, Pain/Pressure in jaw, Vaginal Bleeding Increase, Cramps in feet or legs, Lightheadedness, Pain/Pressure in shoulder, Diarrhea(Persistent), Memory Changes Suddenly, Questions/Concerns, Weight gain consecutive days, Dizziness/Fainting, Nausea/Vomiting, Shortness of Breath, Weight gain over 2 pounds If questions or concerns contact your physician Or seek help at emergency department. KOKO ESPITIA DO May 15, 2021 11:11
[2021-05-15 11:18] VITALS: BP 164/85
--- NOTE | 2021-05-15 12:15 | Discharge Inst-Skilled Nursing ---
Discharge Inst-Skilled NF Consult/Follow Up/Orders Skilled NF Admit to: [facility] Certification (SNF) I certify that SNF services are required to be given on an inpatient basis b ecause of the above named patient's need for group home care on a continuing basis for the conditions(s) for which he/she was receiving inpatient hospital services prior to his/her transfer to the SNF. Long Term Facility Order: Nursing Services, Clinical Account Executive-Evaluate & Treat, Physical Therapy-Evaluate & Treat, Wound Care-Eval/Treat Oxygen Delivery Method: Room Air Discharge Diet: Regular Diet (diabetic) New & Resume Previous Orders Koko Bauer May 15, 2021 12:13 KOKO BAUER DO May 15, 2021 12:15
--- NOTE | 2021-05-15 14:07 | Occ Therapy Progress Note ---
Therapy Progress Note OT visited with pt, pt states he is planning on discharging to [facility] today. Pt already dressed, denies all ADLs offered. OT also encouraged pt to participate in UE strengthening tx, but he refuses stating his arms are fine and he has been getting himself around in a w/c and walker with no difficulties. OT attempted to provide education on purpose and benefit of OT, but he still declined tx today. OT will attempt again tomorrow if pt is still admited. 1, refusal 1340 DIONICIO DICKEY OT May 15, 2021 14:07
[2021-05-15 14:33] VITALS: BP 164/85
--- NOTE | 2021-05-15 14:42 | Progress Note - Hospitalist ---
JAMSHID KUMARI 05/15/21 1442: Subjective HPI/CC On Admission Date Seen by Provider: May 15, 2021 Time Seen by Provider: 08:16 Subjective/Events-last exam Today when I visited the pt he was resting comfortably in bed. His attitude is somewhat doubtful regarding his future living situation and care after he leaves the hospital. Pt was encouraged to continue working with PT and social media editor to develop a fdc plan despite current challenges. He has no physical complaints or concerns at this time. Review of Systems General: No Chills, No Night Sweats, No Fatigue, No Malaise; Appetite HEENT: No Head Aches, No Visual Changes, No Dysphasia, No Sore Throat Pulmonary: No Dyspnea, No Cough, No Pleuritic Chest Pain Cardiovascular: No: Chest Pain, Palpitations, Edema, Lt Headedness Gastrointestinal: No: Nausea, Vomiting, Abdominal Pain, Diarrhea, Constipation, Melena, Hematochezia Genitourinary: No Dysuria, No Frequency, No Incontinence Musculoskeletal: leg pain (controlled BKA pain); No: neck pain, shoulder pain, arm pain, back pain, hand pain Neurological: No: Weakness, Numbness, Incoordination, Change in speech, Seizures Objective Exam Vital Signs Vital Signs Date Time Temp Pulse Resp B/P (MAP) Pulse Ox O2 Delivery O2 Flow Rate FiO2 05/15/21 14:33 36.0 70 18 164/85 100 Room Air 0.00 Capillary Refill : Less Than 3 Seconds General Appearance: No Apparent Distress, WD/WN HEENT: PERRL/EOMI, Pharynx Normal Neck: Full Range of Motion, Non Tender, Supple Respiratory: Chest Non Tender, Lungs Clear, Normal Breath Sounds, No Accessory Muscle Use, No Respiratory Distress Cardiovascular: Regular Rate, Rhythm, No Edema, No Gallop, No Murmur, Normal Peripheral Pulses Gastrointestinal: Normal Bowel Sounds, No Organomegaly, No Pulsatile Mass, Non Tender, Soft Rectal: Deferred Back: No CVA Tenderness, No Vertebral Tenderness Extremity: Normal Capillary Refill, Normal Range of Motion, Non Tender, No Calf Tenderness, No Pedal Edema, Other (left BKA) Neurologic/Psychiatric: Alert, Oriented x3, No Motor/Sensory Deficits, Normal 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 Assessment/Plan Assessment and Plan Assess & Plan/Chief Complaint Osteomelitis - S/P left BKA revision with wound VAC placement T2DM - hyperglycemia Hypokalemia Plan - Continue abx & pain control Glycemic control Potassium PO PT and OT [facility] - working with social media editor PADMINI TAPIA DO 05/16/21 0549: Subjective Subjective/Events-last exam Discharge is planned Supervisory-Addendum Brief Verification & Attestation Participated in pt care: history, MDM, physical Personally performed: exam, history, MDM, supervision of care Care discussed with: Medical Student Procedures: n/a Results interpretation: Verified all documentation Verification and Attestation of Medical Student E/M Service A medical student performed and documented this service in my presence. I reviewed and verified all information documented by the medical student and made modifications to such information, when appropriate. I personally performed the physical exam and medical decision making. Padmini Tapia May 16, 2021,05:49 JAMSHID KUMARI May 15, 2021 14:42 PADMINI TAPIA DO May 16, 2021 05:49
== END 2021-05-15 15:19 | DRG 475 ==
LOC: 4TH 09:19 → SURG 09:20 → 4TH 14:32
PROVIDERS: ADMIT Surgery; ATTEND Surgery
PROC: 0Y6J0Z1 Detachment at Left Lower Leg, High, Open Approach (ICD-10-PCS; principal; 2021-05-08 11:37)
DX: T87.44 Infection of amputation stump, left lower extremity (principal); M86.9 Osteomyelitis, unspecified; E11.65 Type 2 diabetes mellitus with hyperglycemia; L89.151 Pressure ulcer of sacral region, stage 1; E87.6 Hypokalemia; F17.210 Nicotine dependence, cigarettes, uncomplicated; R19.7 Diarrhea, unspecified; B95.62 Methicillin resistant Staphylococcus aureus infection as the cause of diseases classified elsewhere; Z79.4 Long term (current) use of insulin; Z79.84 Long term (current) use of oral hypoglycemic drugs; T36.95XA Adverse effect of unspecified systemic antibiotic, initial encounter
CPT/HCPCS: 36415; 80053; 82947; 83036; 85025; 87070; 87075; 87077; 87081; 87186; 87205; 88304; 88311

== ENCOUNTER → 2021-05-19 | Outpatient (CLI) | payer MEDICARE ==
[~2021-05-19] MED LIST changes: +ACHD5005 PO
== END ==
LOC: WOUNDCARE 13:19
PROVIDERS: ATTEND Family Medicine
DX: E11.622 Type 2 diabetes mellitus with other skin ulcer (principal); L97.224 Non-pressure chronic ulcer of left calf with necrosis of bone; T65.292A Toxic effect of other tobacco and nicotine, intentional self-harm, initial encounter; E11.65 Type 2 diabetes mellitus with hyperglycemia; B95.61 Methicillin susceptible Staphylococcus aureus infection as the cause of diseases classified elsewhere; M86.062 Acute hematogenous osteomyelitis, left tibia and fibula; E11.52 Type 2 diabetes mellitus with diabetic peripheral angiopathy with gangrene; Y83.5 Amputation of limb(s) as the cause of abnormal reaction of the patient, or of later complication, without mention of misadventure at the time of the procedure
CPT/HCPCS: A6260; G0463; 99212

== ENCOUNTER 2021-05-26 14:59 | Emergency (ER) | payer MEDICARE ==
[~2021-05-26] VITALS: Ht 167 cm; Wt 55.0 kg
[~2021-05-26 14:59] MED LIST changes: -SULF1TAB38 PO
[2021-05-26] MEDS ORDERED: PIPERACILLIN SODIUM/TAZOBACTAM 4.5 GM in NS (IVPB) 100 ML IV ONE (15:30)
[2021-05-26] MEDS ORDERED: NS IV 1000 ML 1,000 ML IV SCH (15:30)
[2021-05-26] MEDS ORDERED: VANCOMYCIN INJECTION 1,000 MG in NS (IVPB) 250 ML IV ONE ×2 (15:30→16:15)
--- NOTE | 2021-05-26 15:33 | ED Lower Extremity ---
General Chief Complaint: Lower Extremity Stated Complaint: POSSIBLE SEPSIS,FEVER, WOUND LL BACK History of Present Illness Date Seen by Provider: May 26, 2021 Time Seen by Provider: 15:31 Initial Comments Patient is a 65-year-old male who presents ED for fever. Patient was seen at wound care today and had a temperature as high as 104. Patient with a history of osteomyelitis of his left lower leg with below-knee amputation. Revision [address] Espitia. Denies of any specific pain. Denies chest pain, cough, fever, chills. Patient was febrile on arrival and slightly tachycardic. Patient reports history of staph infection in that left lower leg. Reports taking pain medication. Patient initially refusing treatment at this time. (ESVIN KEY) Allergies and Home Medications Allergies Coded Allergies: No Known Drug Allergies (Unverified , 05/02/11) Patient Home Medication List Home Medication List Reviewed: Yes (DAVID RAYO MD) Empagliflozin/Linagliptin (Glyxambi 25 mg-5 mg Tablet) 1 Each Tablet, 1 EA PO DAILY, (Reported) Entered as Reported by: BAKARI PRATT on 11/19/201515 Gabapentin (Gabapentin) 400 Mg Capsule, 400 MG PO TID, (Reported) Entered as Reported by: BAKARI PRATT on 11/19/201515 Hydrocodone Bit/Acetaminophen (HYDROcodone/APAP 5 MG/325 MG TAB) 1 Tab Tab, 1-2 EA PO Q6HR PRN for PAIN-MOD Prescribed by: KOKO ESPITIA on 05/15/21 1839 Ibuprofen (Ibuprofen) 600 Mg Tablet, 600 MG PO Q6H PRN for PAIN-MILD (1-4), (Reported) Entered as Reported by: BAKARI PRATT on 11/19/201515 Insulin Aspart (Novolog Flexpen) 300 Units/3 Ml Solution, UNITS SC ACHS, (Reported) Entered as Reported by: BAKARI PRATT on 11/19/201515 Insulin Glargine,Hum.rec.anlog (Basaglar Kwikpen U-100) 100 Unit/1 Ml Insuln.pen, 12 UNIT SC DAILY, (Reported) Entered as Reported by: BAKARI PRATT on 11/19/201515 Metformin HCl (Metformin HCl) 1,000 Mg Tablet, 1,000 MG PO BID, (Reported) Entered as Reported by: BAKARI PRATT on 11/19/20 1516 Sulfamethoxazole/Trimethoprim (Bactrim Ds Tablet) 1 Each Tablet, 1 EACH PO BID Prescribed by: GEORGE MOHAN on 05/26/21 1854 Review of Systems EENTM: No ear pain, No blurred vision, No eye pain, No mouth pain Respiratory: No cough, No short of breath Cardiovascular: No chest pain, No edema Gastrointestinal: No abdominal pain, No constipation, No diarrhea Genitourinary: No dysuria, No frequency Musculoskeletal: joint pain; No joint swelling Skin: No change in color, No change in hair/nails (ESVIN KEY) Constitutional: see HPI (DAVID RAYO MD) All Other Systems Reviewed Negative Unless Noted: Yes (ESVIN KEY) Past Ugkglyt-Gmjahp-Qrahsx Hx Immunizations Up To Date First/Initial COVID19 Vaccinat: january 2021 Second COVID19 Vaccination Dylan: february 2021 (ESVIN KEY) Past Medical History Surgeries: Yes Orthopedic Neuropathy Endocrine: Yes Diabetes, Non-Insulin dep (ESVIN KEY) Family Medical History No Pertinent Family Hx (ESVIN KEY) Physical Exam Vital Signs Vital Signs - First Documented 05/26/21 15:10 Temp 38.6 Pulse 105 Resp 18 B/P (MAP) 150/83 (105) Pulse Ox 97 (DAVID RAYO MD) Vital Signs Capillary Refill : (ESVIN KEY) Height, Weight, BMI Height: '" Weight: lbs. oz. kg; 20.65 BMI Method:Estimated General Appearance: WD/WN, no apparent distress HEENT: PERRL/EOMI, normal ENT inspection, TMs normal, pharynx normal Neck: non-tender, full range of motion, supple, normal inspection Cardiovascular: regular rate, rhythm, no edema, no gallop Respiratory: chest non-tender, lungs clear, normal breath sounds, no respiratory distress, no accessory muscle use Gastrointestinal: non tender, no organomegaly Legs: left leg soft tissue tenderness, left leg swelling Skin: other (Below the knee amputation left lower leg. Open wound with mild purulent drainage. Mild odor noted. No significant surrounding erythema, streaking) (ESVIN KEY) Procedures/Interventions Date of ETT Placement: November 16, 2020 Time of ETT Placement: 1510 (ESVIN KEY) Progress/Results/Core Measures Results/Orders Lab Results Laboratory Tests Test 05/26/21 16:05 05/26/21 16:40 Range/Units White Blood Count 5.3 4.3-11.0 10^3/uL Red Blood Count 3.94 L 4.30-5.52 10^6/uL Hemoglobin 12.0 L 13.3-17.7 g/dL Hematocrit 37 L 40-54 % Mean Corpuscular Volume 93 80-99 fL Mean Corpuscular Hemoglobin 31 25-34 pg Mean Corpuscular Hemoglobin Concent 33 32-36 g/dL Red Cell Distribution Width 14.1 10.0-14.5 % Platelet Count 206 130-400 10^3/uL Mean Platelet Volume 9.1 9.0-12.2 fL Immature Granulocyte % (Auto) 0 % Neutrophils (%) (Auto) 83 H 42-75 % Lymphocytes (%) (Auto) 11 L 12-44 % Monocytes (%) (Auto) 5 0-12 % Eosinophils (%) (Auto) 1 0-10 % Basophils (%) (Auto) 1 0-10 % Neutrophils # (Auto) 4.3 1.8-7.8 X 10^3 Lymphocytes # (Auto) 0.6 L 1.0-4.0 X 10^3 Monocytes # (Auto) 0.3 0.0-1.0 X 10^3 Eosinophils # (Auto) 0.0 0.0-0.3 10^3/uL Basophils # (Auto) 0.0 0.0-0.1 10^3/uL Immature Granulocyte # (Auto) 0.0 0.0-0.1 10^3/uL Sodium Level 133 L 135-145 MMOL/L Potassium Level 6.0 H 5.6 H 3.6-5.0 MMOL/L Chloride Level 104 98-107 MMOL/L Carbon Dioxide Level 21 21-32 MMOL/L Anion Gap 8 5-14 MMOL/L Blood Urea Nitrogen 12 7-18 MG/DL Creatinine 1.20 0.60-1.30 MG/DL Estimat Glomerular Filtration Rate 60 BUN/Creatinine Ratio 10 Glucose Level 135 H 70-105 MG/DL Lactic Acid Level 0.73 0.50-2.00 MMOL/L Calcium Level 9.6 8.5-10.1 MG/DL Corrected Calcium 9.4 8.5-10.1 MG/DL Total Bilirubin 0.2 0.1-1.0 MG/DL Aspartate Amino Transf (AST/SGOT) 53 H 5-34 U/L Alanine Aminotransferase (ALT/SGPT) 51 0-55 U/L Alkaline Phosphatase 87 40-136 U/L C-Reactive Protein High Sensitivity 9.09 H 0.00-0.50 MG/DL Total Protein 7.8 6.4-8.2 GM/DL Albumin 4.3 3.2-4.5 GM/DL (DAVID RAYO MD) Vital Signs/I&O 05/26/21 05/26/21 15:10 20:39 Temp 38.6 38.6 Pulse 105 105 Resp 18 18 B/P (MAP) 150/83 (105) 150/83 Pulse Ox 97 97 05/27/21 00:00 Intake Total 100 ml Balance 100 ml (DAVID RAYO MD) Departure Communication (PCP) Patient presents to the ED from wound care for concern for fever. Patient has osteomyelitis of his left stub. Patient was febrile on arrival slightly tachycardic. Sepsis protocol was initiated. Was given a liter of fluid, ibuprofen and pain medication here in the ED. Started on vancomycin and Zosyn for Pseudomonas and MRSA coverage. Patient had a revision earlier this month by Dr. Espitia. Patient has been noncompliant with his antibiotics. Patient on arrival initially refused any type of treatment and lab work. Was able to sit down with patient and discussed the importance of antibiotics and treatment as he could be septic at this time. His wound to his left stub appears to be healing. Packing was in place. No erythematous streaking. Patient refused consult with Dr. Espitia. Patient is currently being managed at [facility]. Patient is currently a resident at the [facility]. Discussed with wound care patient is refusing further treatment at this time. Did offer to consult with another surgeon about patient's case. Patient refused. Patient refusing admission. Patient requesting to be discharged at this time. Patient with normal white blood count. Patient had a potassium level of 6.0. Rechecked at 5.6. Patient did receive IV fluids after second blood draw. Increased CRP at 9.09. Wound VAC was removed due to the ongoing osteomyelitis after looking at previous records. Patient refused redraw of his potassium before discharge or further treatment of the potassium level. Refused EKG. Does not appear toxic. Improvement of his fever. Discussed the importance of the antibiotics and will discharge with the Bactrim that he was given to take and to continue taking. Strongly recommend following up with his PCP and general surgeon if not willing to comply here today. Discussed potential worsening infection and potentially may lead to . (ESVIN KEY) Impression Primary Impression: Osteomyelitis Disposition: AGAINST MEDICAL ADVICE Condition: Stable Departure-Patient Inst. Decision time for Depature: 18:53 (ESVIN KEY) Referrals: [facility] (PCP) Primary Care Physician BAKARI HINSON DO (Family) Primary Care Physician Patient Instructions: Osteomyelitis in Adults Scripts Sulfamethoxazole/Trimethoprim (Bactrim Ds Tablet) 1 Each Tablet 1 EACH PO BID for 10 Days, #20 TAB Prov: ESVIN KEY 05/26/21 ESVIN KEY May 26, 2021 15:33 DAVID RAYO MD May 27, 2021 06:16
[2021-05-26 16:18] LABS: BASOPHILS % (AUTO) 1 % (0-10); EOSINOPHILS % (AUTO) 1 % (0-10); HEMATOCRIT 37 % (40-54); LYMPHOCYTES # (AUTO) 0.6 X 10^3 (1.0-4.0); LYMPHOCYTES % (AUTO) 11 % (12-44); MEAN CORPUSCULAR HEMOGLOBIN 31 pg (25-34); MEAN CORPUSCULAR HGB CONC 33 g/dL (32-36); MEAN CORPUSCULAR VOLUME 93 fL (80-99); MEAN PLATELET VOLUME 9.1 fL (9.0-12.2); MONOCYTES # (AUTO) 0.3 X 10^3 (0.0-1.0); MONOCYTES % (AUTO) 5 % (0-12); NEUTROPHILS # (AUTO) 4.3 X 10^3 (1.8-7.8); NEUTROPHILS % (AUTO) 83 % (42-75); PLATELET COUNT 206 10^3/uL (130-400); WHITE BLOOD COUNT 5.3 10^3/uL (4.3-11.0)
[2021-05-26] MEDS ORDERED: IBUPROFEN 600 MG (MOTRIN) TAB PO ONE (16:30)
[2021-05-26 16:37] LABS: ALBUMIN 4.3 GM/DL (3.2-4.5); BILIRUBIN,TOTAL 0.2 MG/DL (0.1-1.0); CALCIUM 9.6 MG/DL (8.5-10.1); CREATININE SERUM 1.2 MG/DL (0.60-1.30); TOTAL PROTEIN 7.8 GM/DL (6.4-8.2)
[2021-05-26] MEDS ORDERED: HYDROcodone/APAP 5 MG/325 MG (LORTAB) TAB PO ONE (16:45)
[2021-05-26] MEDS ORDERED: SULF1TAB38 PO (18:54)
[2021-05-26 20:39] VITALS: BP 150/83
== END 2021-05-26 20:40 | disposition left against medical advice (07) ==
LOC: EDUNIT# 14:59 → ER 15:01
DX: M86.9 Osteomyelitis, unspecified (principal); E11.9 Type 2 diabetes mellitus without complications; Z79.84 Long term (current) use of oral hypoglycemic drugs
CPT/HCPCS: 36415; 80053; 83605; 84132; 85025; 86141; 87040

== ENCOUNTER → 2021-05-26 | Outpatient (CLI) | payer MEDICARE ==
[~2021-05-26] MED LIST changes: +SULF1TAB38 PO
== END ==
LOC: WOUNDCARE 14:22
PROVIDERS: ATTEND Family Medicine
DX: E11.622 Type 2 diabetes mellitus with other skin ulcer (principal); L97.224 Non-pressure chronic ulcer of left calf with necrosis of bone; T65.292A Toxic effect of other tobacco and nicotine, intentional self-harm, initial encounter; E11.65 Type 2 diabetes mellitus with hyperglycemia; B95.61 Methicillin susceptible Staphylococcus aureus infection as the cause of diseases classified elsewhere; M86.062 Acute hematogenous osteomyelitis, left tibia and fibula; E11.52 Type 2 diabetes mellitus with diabetic peripheral angiopathy with gangrene; Y83.5 Amputation of limb(s) as the cause of abnormal reaction of the patient, or of later complication, without mention of misadventure at the time of the procedure
CPT/HCPCS: 99213

== ENCOUNTER → 2021-06-02 | Outpatient (CLI) | payer MEDICARE ==
[~2021-06-02] MED LIST changes: +SULF1TAB38 PO
== END ==
LOC: WOUNDCARE 14:24
PROVIDERS: ATTEND Family Medicine
DX: Z53.9 Procedure and treatment not carried out, unspecified reason (principal)

== ENCOUNTER 2022-08-16 23:08 | Inpatient (IN) | payer MEDICARE, MEDICAID ==
[~2022-08-16] VITALS: Ht 167.7 cm; Wt 55.6 kg
[~2022-08-16 23:08] MED LIST changes: +AMOX1TAB12 PO; +EMPA10TA PO; +MIDO10TA PO; +ROSU10TA28 PO
[2022-08-16] MEDS ORDERED: NS IV 1000 ML 1,000 ML IV STA (23:24)
[2022-08-16] MEDS ORDERED: PANTOPRAZOLE 40 MG (PROTONIX) VIAL IV ONE (23:30)
[2022-08-16] MEDS ORDERED: PANTOPRAZOLE INJECTION 200 MG in NS (IVPB) 100 ML IV SCH (23:30)
--- NOTE | 2022-08-16 23:31 | ED GI ---
General Stated Complaint: BLOOD IN STOOL Source of Information: Patient, EMS Exam Limitations: No Limitations History of Present Illness Date Seen by Provider: Aug 16, 2022 Time Seen by Provider: 23:12 Initial Comments Patient is a 67-year-old male who presents to the emergency department by EMS chief complaint blood in stool. Patient states he noted black stool today, progressed to bright red blood. He has never had anything like this before. He states he has never had a colonoscopy. His only medical problem is diabetes. He is on insulin weekly he states. He has not had any insulin today, he does not believe he has eaten today. He states chronic alcoholic, drink of choice is vodka. 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 He is a smoker. Denies abdominal pain. Denies nausea. No vomiting today. He did have alcohol earlier today. No urinary complaints. States that he takes 6 ibuprofen at a time up to 6 times daily. "Whenever I am in pain". Primary care physician is Dr. Hinson at [facility] Slightly tachycardic at presentation HR105 with BP systolic 88/55 Timing/Duration: 12 Hours Severity/Quality: Severe Associated Symptoms: Other (left leg pain) Allergies and Home Medications Allergies Coded Allergies: No Known Drug Allergies (Unverified , 05/02/11) Patient Home Medication List Home Medication List Reviewed: Yes Amoxicillin/Potassium Clav (Amox Tr-K Clv 875-125 mg Tab) 1 Each Tablet, 1 EACH PO BID Prescribed by: CHIP TAPIA on 10/11/21 1140 Gabapentin (Gabapentin) 400 Mg Capsule, 400 MG PO TID Prescribed by: CHIP TAPIA on 10/11/21 1140 Insulin Aspart (Novolog Flexpen) 300 Units/3 Ml Solution, UNITS SC ACHS, (Reported) Entered as Reported by: BAKARI PRATT on 11/19/20 1516 Insulin Glargine,Hum.rec.anlog (Basaglar Kwikpen U-100) 100 Unit/1 Ml Insuln.pen, 15 UNIT SC HS, (Reported) Entered as Reported by: BAKARI PRATT on 11/19/20 1516 Midodrine HCl (Midodrine HCl) 10 Mg Tablet, 5 MG PO WM Prescribed by: CHIP TAPIA on 10/11/21 1140 Rosuvastatin Calcium (Rosuvastatin Calcium) 10 Mg Tablet, 10 MG PO HS Prescribed by: CHIP TAPIA on 10/11/21 1140 Review of Systems Review of Systems Constitutional: see HPI EENTM: No Symptoms Reported Respiratory: No Symptoms Reported Cardiovascular: No Symptoms Reported Gastrointestinal: Rectal Bleeding Genitourinary: No Symptoms Reported Musculoskeletal: other (leg pain (right post BKA)) Skin: no symptoms reported Psychiatric/Neurological: Depressed All Other Systems Reviewed Negative Unless Noted: Yes Past Daqmshg-Lrsrrn-Oirlvz Hx Immunizations Up To Date First/Initial COVID19 Vaccinat: 01/20/2021 Second COVID19 Vaccination Dylan: 02/20/2021 Third COVID19 Vaccination Date: 09/03/2021 Past Medical History Surgeries: Yes Orthopedic Neuropathy Endocrine: Yes Diabetes, Non-Insulin dep Family Medical History No Pertinent Family Hx Physical Exam Vital Signs Vital Signs - First Documented 08/16/22 23:12 Temp 36.9 Pulse 105 Resp 14 B/P (MAP) 86/56 (66) Pulse Ox 100 O2 Delivery Room Air Capillary Refill : Height/Weight/BMI Height: '" Weight: lbs. oz. kg; 18.00 BMI Method:Estimated General Appearance: no apparent distress, thin HEENT: pale conjunctivae (R), pale conjunctivae (L), other (very dry mucous membranes) Neck: normal inspection Respiratory: lungs clear, normal breath sounds, no respiratory distress, no a ccessory muscle use Cardiovascular: regular rate, rhythm, systolic murmur Gastrointestinal: soft, other (+ abdominal bruit; nontender) Rectal: other (maroon stool at rectum; no masses; no hemorrhoids) Extremities: normal range of motion, other (Left BKA) Back: normal inspection Neurologic/Psychiatric: alert, oriented x 3, depressed affect Skin: warm/dry, pallor Procedures/Interventions Date of ETT Placement: November 16, 2020 Time of ETT Placement: 1510 Progress/Results/Core Measures Results/Orders Lab Results Laboratory Tests Test 08/16/22 23:30 Range/Units White Blood Count 14.8 H 4.3-11.0 10^3/uL Red Blood Count 2.61 L 4.30-5.52 10^6/uL Hemoglobin 9.1 L 13.3-17.7 g/dL Hematocrit 25 L 40-54 % Mean Corpuscular Volume 97 80-99 fL Mean Corpuscular Hemoglobin 35 H 25-34 pg Mean Corpuscular Hemoglobin Concent 36 32-36 g/dL Red Cell Distribution Width 12.0 10.0-14.5 % Platelet Count 237 130-400 10^3/uL Mean Platelet Volume 9.2 9.0-12.2 fL Immature Granulocyte % (Auto) 1 % Neutrophils (%) (Auto) 85 H 42-75 % Lymphocytes (%) (Auto) 10 L 12-44 % Monocytes (%) (Auto) 4 0-12 % Eosinophils (%) (Auto) 0 0-10 % Basophils (%) (Auto) 0 0-10 % Neutrophils # (Auto) 12.6 H 1.8-7.8 10^3/uL Lymphocytes # (Auto) 1.5 1.0-4.0 10^3/uL Monocytes # (Auto) 0.5 0.0-1.0 10^3/uL Eosinophils # (Auto) 0.0 0.0-0.3 10^3/uL Basophils # (Auto) 0.0 0.0-0.1 10^3/uL Immature Granulocyte # (Auto) 0.1 0.0-0.1 10^3/uL Neutrophils % (Manual) 87 % Lymphocytes % (Manual) 8 % Monocytes % (Manual) 5 % Blood Morphology Comment NORMAL Prothrombin Time 13.5 12.2-14.7 SEC INR Comment 1.0 0.8-1.4 Activated Partial Thromboplast Time 29 24-35 SEC Sodium Level 125 *L 135-145 MMOL/L Potassium Level 4.9 3.6-5.0 MMOL/L Chloride Level 92 L 98-107 MMOL/L Carbon Dioxide Level 13 L 21-32 MMOL/L Anion Gap 20 H 5-14 MMOL/L Blood Urea Nitrogen 26 H 7-18 MG/DL Creatinine 1.43 H 0.60-1.30 MG/DL Estimat Glomerular Filtration Rate 53 BUN/Creatinine Ratio 18 Glucose Level 340 H 70-105 MG/DL Calcium Level 8.5 8.5-10.1 MG/DL Corrected Calcium 8.8 8.5-10.1 MG/DL Total Bilirubin 0.3 0.1-1.0 MG/DL Aspartate Amino Transf (AST/SGOT) 16 5-34 U/L Alanine Aminotransferase (ALT/SGPT) 8 0-55 U/L Alkaline Phosphatase 87 40-136 U/L Total Protein 6.2 L 6.4-8.2 GM/DL Albumin 3.6 3.2-4.5 GM/DL Beta-Hydroxybutyrate (Chem panel) 1.82 H 0.00-0.27 MMOL/L Serum Alcohol 40 H <10 MG/DL My Orders Orders - DAVID RAYO MD Ed Iv/Invasive Line Start (08/16/22 23:24) Cbc With Automated Diff (08/16/22 23:24) Comprehensive Metabolic Panel (08/16/22 23:24) Protime With Inr (08/16/22:24) Partial Thromboplastin Time (08/16/22:24) Ekg Tracing (08/16/22:) Type And Screen (08/16/22 23:24) Pantoprazole Injection (Protonix Injecti (08/16/22 23:30) Ns (Ivpb) (Sodium C... W/Pantoprazole In (08/16/22 23:30) Ns Iv 1000 Ml (Sodium Chloride 0.9%) (08/16/22 23:24) Alcohol (08/16/22 23:24) Manual Differential (08/16/22 23:30) Beta Hydroxybutyrate (08/17/22 00:25) Arterial Blood Gas (08/17/22 00:25) Insulin (Regular) Human (Novolin R (Per (08/17/22 00:25) Medications Given in ED Current Medications Medications Dose Ordered Sig/Aracely Route Start Time Stop Time Status Last Admin Dose Admin Pantoprazole 80 mg ONCE ONCE IV 08/16/22 23:30 08/16/22 23:31 DC 08/16/22 23:51 80 MG Vital Signs/I&O 08/16/22 23:12 Temp 36.9 Pulse 105 Resp 14 B/P (MAP) 86/56 (66) Pulse Ox 100 O2 Delivery Room Air 08/17/22 00:00 Intake Total 150 ml Balance 150 ml Admisison Planning May Need Admission (Planning): 23:29 Progress Progress Note : Time: 00:42 Progress Note Patient seen and examined by me, 67-year-old with blood in his stool. Evaluation today includes physical exam, CBC, type and screen, Chem-12, urinalysis, beta hydroxybutyrate, ABG, EKG. Physical exam remarkablesignificant conjunctival pallor, skin pallor. Gross blood at the rectum, no masses, hemorrhoids noted on exam. Heart is regular, tachycardic at 105. Systolic murmur auscultated. Lungs are clear. Abdomen soft, bruit noted, positive bowel sounds nontender. Patient mentating appropriately, no focal neurologic deficits. Head differential diagnosis based on history and physical exam, acute GI bleed secondary to excessive NSAID use per patient, upper GI bleed, coagulopathy based on excessive alcohol use. Patient's labs show slightly increased white blood cell count at 15,000 with hemoglobin of 9.1. Normal platelets. Chemistry shows elevated BUN and creatinine, hyponatremia and hyperglycemia with a blood sugar of 340. CO2 depressed at 13. Alcohol 40 mg/dL. ABG and beta hydroxybutyrate pending at the time of admission. Patient noted to be extremely volume contracted/dehydrated. IV fluids provided, 2 L of normal saline. Patient is given Protonix 80 mg bolus with subsequent drip. Regular insulin 5 unit bolus provided IV. Case discussed with Dr. Lyons on-call for critical [facility]. Recommended admission for GI bleed, DKA. Patient will be admitted to the ICU. Consults to Dr. CARROLL general surgery as well as EICU. Initial ECG Impression Date: Aug 17, 2022 Initial ECG Impression Time: 00:08 Initial ECG Rate: 101 Initial ECG Rhythm: Normal Sinus Comment EKG interpretation complicated by Patient tremors - no obvious ST elevation or depression; no ectopy Departure Communication (Admissions) Time/Spoke to Admitting Phy: 00:[address] Lyons (hospitalist); admit to ICU; transfuse 2u PRBC Time/Spoke to Consulting Phy: 00:[address] Carroll (general surgery) Impression Primary Impression: GI bleed due to NSAIDs Additional Impressions: DKA (diabetic ketoacidosis) Qualified Codes: E11.10 - Type 2 diabetes mellitus with ketoacidosis without coma Anemia Qualified Codes: D62 - Acute posthemorrhagic anemia Disposition: ADMITTED INPATIENT Condition: Critical Admissions Decision to Admit Reason: Admit from ER (General) Decision to Admit/Date: Aug 16, 2022 Time/Decision to Admit Time: 23:30 Departure-Patient Inst. Referrals: [facility] (PCP) Primary Care Physician BAKARI HINSON DO (Family) Primary Care Physician DAVID RAYO MD Aug 16, 2022 23:31
[2022-08-16 23:37] LABS: BASOPHILS % (AUTO) 0 % (0-10); EOSINOPHILS % (AUTO) 0 % (0-10); HEMATOCRIT 25 % (40-54); HEMOGLOBIN 9.1 g/dL (13.3-17.7); LYMPHOCYTES # (AUTO) 1.5 10^3/uL (1.0-4.0); LYMPHOCYTES % (AUTO) 10 % (12-44); MEAN CORPUSCULAR HEMOGLOBIN 35 pg (25-34); MEAN CORPUSCULAR HGB CONC 36 g/dL (32-36); MEAN CORPUSCULAR VOLUME 97 fL (80-99); MEAN PLATELET VOLUME 9.2 fL (9.0-12.2); MONOCYTES # (AUTO) 0.5 10^3/uL (0.0-1.0); MONOCYTES % (AUTO) 4 % (0-12); NEUTROPHILS # (AUTO) 12.6 10^3/uL (1.8-7.8); NEUTROPHILS % (AUTO) 85 % (42-75); PLATELET COUNT 237 10^3/uL (130-400); WHITE BLOOD COUNT 14.8 10^3/uL (4.3-11.0)
[2022-08-17 00:07] LABS: ALBUMIN 3.6 GM/DL (3.2-4.5)
[2022-08-17 00:08] LABS: POTASSIUM 4.9 MMOL/L (3.6-5.0)
[2022-08-17 00:09] LABS: CALCIUM 8.5 MG/DL (8.5-10.1)
[2022-08-17 00:10] LABS: PROTHROMBIN TIME PATIENT 13.5 SEC (12.2-14.7); TOTAL PROTEIN 6.2 GM/DL (6.4-8.2)
[2022-08-17 00:12] LABS: BILIRUBIN,TOTAL 0.3 MG/DL (0.1-1.0)
[2022-08-17 00:14] LABS: CREATININE SERUM 1.43 MG/DL (0.60-1.30)
[2022-08-17] MEDS ORDERED: inSUlin (REGULAR) HUMAN 1 UNIT/0.01 ML (CHARGE PER UNIT) IV STA (00:25)
[2022-08-17 00:26] LABS: LYMPHOCYTES % (MANUAL) 8 %; MONOCYTES % (MANUAL) 5 %; NEUTROPHILS % (MANUAL) 87 %; RBC MORPH NORMAL
[2022-08-17 01:00] LABS: ABG BASE EXCESS -10.8 MMOL/L (-2.5-2.5); ABG OXYGEN SATURATION 100 % (94-100); ABG PCO2 23 MMHG (35-45); ABG PH 7.38 (7.37-7.43); ABG PO2 146 MMHG (79-93); ABG TCO2 14.1 MMOL/L (21.0-31.0)
[2022-08-17 01:06] LABS: ALLENS TEST YES-POS; PATIENT TEMP 36.9; VENTILATOR NO
[2022-08-17] MEDS ORDERED: NS IV 500 ML 500 ML ONE (01:30)
[2022-08-17] MEDS ORDERED: ONDANSETRON 4 MG/2 ML (SDV) Z0FRAN IV PRN ×2 (01:30→09:45)
[2022-08-17 01:40] VITALS: BP 89/60
[2022-08-17 02:05] VITALS: BP 90/61
[2022-08-17] MEDS ORDERED: 1/2 NS IV SOLUTION 1,000 ML IV SCH (02:15)
[2022-08-17] MEDS ORDERED: NS IV 1000 ML 1,000 ML IV SCH (02:15)
[2022-08-17] MEDS ORDERED: D5 1/2 NS 1000 ML IV SOLUTION 1,000 ML IV SCH ×2 (02:15→14:15)
[2022-08-17] MEDS: POTASSIUM CL 10MEQ/50ML IVPB 50 ML IV SCH ×2 (02:27→05:47)
[2022-08-17 02:28] LABS: POTASSIUM 5.1 MMOL/L (3.6-5.0)
[2022-08-17 02:29] LABS: CALCIUM 7.7 MG/DL (8.5-10.1)
[2022-08-17 02:32] VITALS: BP 86/56
[2022-08-17 02:34] LABS: CREATININE SERUM 1.24 MG/DL (0.60-1.30)
[2022-08-17] MEDS ORDERED: RT-ALBUTEROL SULF 2.5 MG/3 ML PRE-MIX VIAL INH PRN (02:45)
[2022-08-17] MEDS: fentaNYL INJ 100 MCG/2 ML AMP IV PRN ×9 (03:57→21:57)
[2022-08-17 04:21] VITALS: BP 78/54
[2022-08-17 04:40] VITALS: BP 117/73
[2022-08-17 05:41] LABS: BASOPHILS % (AUTO) 0 % (0-10); EOSINOPHILS # (AUTO) 0.1 10^3/uL (0.0-0.3); EOSINOPHILS % (AUTO) 0 % (0-10); HEMATOCRIT 21 % (40-54); HEMOGLOBIN 7.7 g/dL (13.3-17.7); LYMPHOCYTES # (AUTO) 1.2 10^3/uL (1.0-4.0); LYMPHOCYTES % (AUTO) 11 % (12-44); MEAN CORPUSCULAR HEMOGLOBIN 34 pg (25-34); MEAN CORPUSCULAR HGB CONC 36 g/dL (32-36); MEAN CORPUSCULAR VOLUME 94 fL (80-99); MEAN PLATELET VOLUME 9.3 fL (9.0-12.2); MONOCYTES # (AUTO) 1.1 10^3/uL (0.0-1.0); MONOCYTES % (AUTO) 10 % (0-12); NEUTROPHILS # (AUTO) 8.8 10^3/uL (1.8-7.8); NEUTROPHILS % (AUTO) 78 % (42-75); PLATELET COUNT 138 10^3/uL (130-400); WHITE BLOOD COUNT 11.3 10^3/uL (4.3-11.0)
[2022-08-17 06:06] LABS: ALBUMIN 2.7 GM/DL (3.2-4.5); BILIRUBIN,TOTAL 0.5 MG/DL (0.1-1.0); CALCIUM 7.3 MG/DL (8.5-10.1); CREATININE SERUM 1.1 MG/DL (0.60-1.30); MAGNESIUM 1.5 MG/DL (1.6-2.4); PHOSPHORUS 3.5 MG/DL (2.3-4.7); POTASSIUM 5.2 MMOL/L (3.6-5.0); TOTAL PROTEIN 4.8 GM/DL (6.4-8.2)
[2022-08-17] MEDS: NS IV 1000 ML 1,000 ML IV SCH ×2 (06:38→11:41)
[2022-08-17] MEDS: PANTOPRAZOLE DRIP 200 MG/NS 100 ML IV SCH ×4 (07:00→20:59)
[2022-08-17] MEDS: inSUlin NPH (NovoLIN N) 1 UNIT/0.01 ML (CHARGE PER UNIT) SQ SCH ×2 (07:11→20:56)
[2022-08-17 08:40] LABS: HEMATOCRIT 26 % (40-54); MEAN CORPUSCULAR HEMOGLOBIN 34 pg (25-34); MEAN CORPUSCULAR HGB CONC 37 g/dL (32-36); MEAN CORPUSCULAR VOLUME 92 fL (80-99); MEAN PLATELET VOLUME 9.2 fL (9.0-12.2); PLATELET COUNT 131 10^3/uL (130-400); WHITE BLOOD COUNT 10.5 10^3/uL (4.3-11.0)
[2022-08-17] MEDS: NICOTINE 21 MG (NICODERM) PATCH TD SCH (08:56)
[2022-08-17 09:00] LABS: HEMOGLOBIN 9.7 g/dL (13.3-17.7)
[2022-08-17] MEDS ORDERED: LORazepam INJ 2 MG/ML (ATIVAN) VIAL IVP PRN (09:15)
[2022-08-17] MEDS ORDERED: THIAMINE 100 MG (VITAMIN B-1) TAB PO SCH (09:15)
[2022-08-17] MEDS ORDERED: 1/2 NS IV SOLUTION 1,000 ML IV PRN (09:45)
[2022-08-17] MEDS ORDERED: LORazepam INJ 2 MG/ML (ATIVAN) VIAL IV PRN (09:45)
[2022-08-17] MEDS ORDERED: ENOXAPARIN 40 MG/0.4 ML (LOVENOX) SYR SC SCH (09:45)
[2022-08-17] MEDS ORDERED: LORazepam 1 MG (ATIVAN) TAB PO PRN (09:45)
[2022-08-17] MEDS ORDERED: LORazepam INJ 2 MG/ML (ATIVAN) VIAL IM/IV PRN (09:45)
[2022-08-17] MEDS ORDERED: D5 1/2 NS 1000 ML IV SOLUTION 1,000 ML IV PRN (09:45)
[2022-08-17] MEDS ORDERED: ANTACID SUSP 30 ML UDC (MYLANTA) PO PRN (09:45)
[2022-08-17] MEDS ORDERED: ONDANSETRON 4 MG (ZOFRAN) ORAL DISSOLVE TAB SL PRN (09:45)
[2022-08-17] MEDS ORDERED: SENNA W/DOCUSATE (SENOKOT S) TABLET PO PRN (09:45)
[2022-08-17] MEDS: FOLIC ACID 1 MG TAB PO SCH (10:05)
[2022-08-17] MEDS: MAGNESIUM 1 GM/100 ML IVPB 100 ML IV SCH ×2 (10:05→10:06)
[2022-08-17] MEDS: THIAMINE 100 MG (VITAMIN B-1) TAB PO SCH (10:05)
--- NOTE | 2022-08-17 10:38 | Tele-ICU Consult ---
History of Present Illness History of Present Illness Date Seen by Provider: Aug 17, 2022 Time Seen by Provider: 10:33 Date of Admission (Tele-ICU Physician , consultation as per request of PCP Service provided via interactive audio and video telecommunications E-CARE system to a patient admitted to ICU bed in [facility]. Available chart/ vitals / labs / Images reviewed H&P is from ER notes Patient's information available about PMH, Shx, Fhx allergy reviewed inEMR. ROS as per chart and RN report Now in ICU, hemodynamically stable Video assessment done using teleICU camera, rest of exam as per RN Discussed with RN. Consultants: Hospital course: A/P LGIB ( RBBR) - s/p transfusion 2 u prbc - PPI gtt - sx consulted DKA - off insulin gtt NAGMA - Hyponatremia - follow closely ETON -CIWA - thiamine folate Lines : PERIPH LINE , (Central Line Necessity Reviewed) Gomez: voiding OG: Nutrition: clear liquids Analgesia: Anxiety/ delirium VTE Prophylaxis: Stress Ulcer Prophylaxis: Plans in collaboration with bedside consultants and IM MDs. Discussed with RN to reach out if any questions or concerns A total of 31 minutes of critical care time was devoted to this patient today, required to treat and/or prevent further deterioration of critical care condition ( as above ) . I am remotely monitoring this patient from another state. I am unable to do the bedside exam, and history/physical and pertinent information is taken from other notes in the computer and bedside staff. . Allergies and Home Medications Allergies Coded Allergies: No Known Drug Allergies (Unverified , 05/02/11) Home Medications Amoxicillin/Potassium Clav 1 Each Tablet, 1 EACH PO BID Prescribed by: CHIP TAPIA on 10/11/21 114 Gabapentin 400 Mg Capsule, 400 MG PO TID Prescribed by: CHIP TAPIA on 10/11/21 114 Insulin Aspart 300 Units/3 Ml Solution, UNITS SC ACHS, (Reported) USES PER SLIDING SCALE Insulin Glargine,Hum.rec.anlog 100 Unit/1 Ml Insuln.pen, 15 UNIT SC HS, (Reported) Midodrine HCl 10 Mg Tablet, 5 MG PO WM Prescribed by: CHIP TAPIA on 10/11/21 114 Rosuvastatin Calcium 10 Mg Tablet, 10 MG PO HS Prescribed by: CHIP TAPIA on 10/11/21 1140 Past Medical/Social/Family Hx Patient Social History Tobacco Use?: Yes Tobacco type used: Cigarettes Smoking Status: Current Everyday Smoker Use of E-Cig and/or Vaping dev: No Substance use?: No Alcohol Use?: Yes Alcohol type: Hard Liquor Alcohol Frequency: Daily Pt stated abuse/neglect: No Immunizations Up To Date Influenza Vaccine Up-to-Date: Yes; Up-to-Date First/Initial COVID19 Vaccinat: 01/20/2021 Second COVID19 Vaccination Dylan: 02/20/2021 Current Status Advance Directives: Yes Advance Directive Location: pt believes he has AD that was done here Communicates: Verbally Primary Language: Irish Preferred Spoken Language: Irish Is interpretation needed?: No Implanted or Applied Medical D: None Past Medical History PMHx: IDDM PVD SurgHx: Left foot amputation 1982 Left BKA Inguinal hernia repair Cardiac stent Focused Exam Lactate Level 08/17/22 05:20: Lactic Acid Level 2.50*H 08/17/22 07:35: Lactic Acid Level 2.50*H 08/17/22 09:50: Lactic Acid Level 2.10*H Height, Weight, BMI Height: '" Weight: lbs. oz. kg; 21.08 BMI Method:Estimated Lactic Acid Level Laboratory Tests Test 08/17/22 07:35 08/17/22 09:50 Lactic Acid Level 2.50 MMOL/L (0.50-2.00) *H 2.10 MMOL/L (0.50-2.00) *H Exam Exam Patient acknowledged, consented, and participated in this virtual visit which was conducted using real time audio/video Vital Signs Date Time Temp Pulse Resp B/P (MAP) Pulse Ox O2 Delivery O2 Flow Rate FiO2 08/17/22 10:00 101 36 147/81 (103) 100 Room Air 08/17/22 09:00 103 30 151/87 (108) 95 Room Air 08/17/22 08:00 89 28 135/83 (100) 100 Room Air 08/17/22 08:00 36.3 08/17/22 08:00 Room Air 08/17/22 07:30 36.9 08/17/22 07:00 94 08/17/22 07:00 92 124/75 (91) 100 Room Air 08/17/22 06:30 88 115/72 (86) 100 08/17/22 06:00 98 18 128/72 (91) 95 08/17/22 05:30 90 93/60 (70) 100 08/17/22 05:00 104 18 100/64 (75) 100 08/17/22 04:43 110 117/73 (84) 100 08/17/22 04:40 36.5 107 20 117/73 97 Room Air 08/17/22 04:30 104 98/80 (82) 100 08/17/22 04:22 93 14 78/54 (61) 08/17/22 04:21 36.4 95 18 78/54 100 Room Air 08/17/22 04:00 88/59 (68) 100 08/17/22 04:00 36.3 101 88/59 (68) 100 08/17/22 03:30 121 110/78 (88) 100 08/17/22 03:14 Room Air 08/17/22 03:00 105 20 107/60 (70) 100 08/17/22 03:00 107/60 (70) 100 08/17/22 02:41 101/63 (76) 100 08/17/22 02:32 36.9 105 100 21 08/17/22 02:30 120 101/63 (75) 92 08/17/22 02:15 83/58 (68) 100 08/17/22 02:05 36.4 101 18 90/61 100 Room Air 08/17/22 02:00 96 20 90/61 (71) 100 08/17/22 01:45 85/55 (62) 90 08/17/22 01:40 36.2 109 20 89/60 100 Room Air 08/17/22 01:30 106 89/60 (70) 100 08/17/22 01:16 116 86/61 (69) 100 08/17/22 01:16 116 08/17/22 01:15 25 88/54 (58) 08/17/22 01:15 36.5 105 20 88/54 (65) 100 Room Air 08/17/22 00:51 115 14 103/59 100 Room Air 08/16/22 23:12 36.9 105 14 86/56 (66) 100 Room Air I & O 08/17/22 07:00 Intake Total 2406 ml Output Total 150 ml Balance 2256 ml Height & Weight Height: '" Weight: lbs. oz. kg; 21.08 BMI Method:Estimated Capillary Refill: Less Than 3 Seconds Gastrointestinal: soft, other (+ abdominal bruit; nontender) Results Lab Laboratory Tests 08/16/22 23:30 08/17/22 02:05 08/17/22 05:20 08/17/22 08:28 LAURA PRITCHARD MD Aug 17, 2022 10:38
--- NOTE | 2022-08-17 10:41 | Tele-ICU Consult ---
History of Present Illness History of Present Illness Date Seen by Provider: Aug 17, 2022 Time Seen by Provider: 10:40 Date of Admission (Tele-ICU Physician , consultation as per request of PCP Service provided via interactive audio and video telecommunications E-CARE system to a patient admitted to ICU bed in [facility]. Available chart/ vitals / labs / Images reviewed H&P is from ER notes Patient's information available about PMH, Shx, Fhx allergy reviewed inEMR. ROS as per chart and RN report Now in ICU, hemodynamically stable Video assessment done using teleICU camera, rest of exam as per RN Discussed with RN. Consultants: Hospital course: (08/16) 67M Admitted for GIB due to NSAIDS, chronic alcoholic (vodka) which he uses to decrease pain from amputation of LLE. Also a smoker. KAIT. Acidotic with mild hyperkalemia. Hypotensive in ER. A/P GIB ( presumed lower -RBBR), but also has exessive intake of NSAIDS - s/p transfusion 2 u prbc - PPI gtt -- coags WNL - - sx consulted ABLA - - s/p transfusion 2 u prbc - follow HB Hypotension - resolved , not on pressors DKA - off insulin gtt NAGMA - ? etiology , ETON ? Hyponatremia - w/up ordered - follow closely ETON -CIWA - thiamine folate Lines : PERIPH LINE , (Central Line Necessity Reviewed) Gomez: voiding OG: Nutrition: clear liquids Analgesia: Anxiety/ delirium VTE Prophylaxis: scd Stress Ulcer Prophylaxis: ppi gtt Glycemic Control: Plans in collaboration with bedside consultants and IM MDs. Discussed with RN to reach out if any questions or concerns A total of31 minutes of critical care time was devoted to this patient today, required to treat and/or prevent further deterioration of critical care condition ( as above ) . I am remotely monitoring this patient from another state. I am unable to do the bedside exam, and history/physical and pertinent information is taken from other notes in the computer and bedside staff. . Allergies and Home Medications Allergies Coded Allergies: No Known Drug Allergies (Unverified , 05/02/11) Home Medications Amoxicillin/Potassium Clav 1 Each Tablet, 1 EACH PO BID Prescribed by: CHIP TAPIA on 10/11/21 1140 Gabapentin 400 Mg Capsule, 400 MG PO TID Prescribed by: CHIP TAPIA on 10/11/21 1140 Insulin Aspart 300 Units/3 Ml Solution, UNITS SC ACHS, (Reported) USES PER SLIDING SCALE Insulin Glargine,Hum.rec.anlog 100 Unit/1 Ml Insuln.pen, 15 UNIT SC HS, (Reported) Midodrine HCl 10 Mg Tablet, 5 MG PO WM Prescribed by: CHIP TAPIA on 10/11/21 1140 Rosuvastatin Calcium 10 Mg Tablet, 10 MG PO HS Prescribed by: CHIP TAPIA on 10/11/21 1140 Past Medical/Social/Family Hx Patient Social History Tobacco Use?: Yes Tobacco type used: Cigarettes Smoking Status: Current Everyday Smoker Use of E-Cig and/or Vaping dev: No Substance use?: No Alcohol Use?: Yes Alcohol type: Hard Liquor Alcohol Frequency: Daily Pt stated abuse/neglect: No Immunizations Up To Date Influenza Vaccine Up-to-Date: Yes; Up-to-Date First/Initial COVID19 Vaccinat: 01/20/2021 Second COVID19 Vaccination Dylan: 02/20/2021 Current Status Advance Directives: Yes Advance Directive Location: pt believes he has AD that was done here Communicates: Verbally Primary Language: Tunisian Preferred Spoken Language: Tunisian Is interpretation needed?: No Implanted or Applied Medical D: None Past Medical History PMHx: IDDM PVD SurgHx: Left foot amputation 1982 Left BKA Inguinal hernia repair Cardiac stent Review of Systems Constitutional: see HPI Focused Exam Lactate Level 08/17/22 05:20: Lactic Acid Level 2.50*H 08/17/22 07:35: Lactic Acid Level 2.50*H 08/17/22 09:50: Lactic Acid Level 2.10*H Height, Weight, BMI Height: '" Weight: lbs. oz. kg; 21.08 BMI Method:Estimated Lactic Acid Level Laboratory Tests Test 08/17/22 07:35 08/17/22 09:50 Lactic Acid Level 2.50 MMOL/L (0.50-2.00) *H 2.10 MMOL/L (0.50-2.00) *H Exam Exam Patient acknowledged, consented, and participated in this virtual visit which was conducted using real time audio/video Vital Signs Date Time Temp Pulse Resp B/P (MAP) Pulse Ox O2 Delivery O2 Flow Rate FiO2 08/17/22 10:00 101 36 147/81 (103) 100 Room Air 08/17/22 09:00 103 30 151/87 (108) 95 Room Air 08/17/22 08:00 89 28 135/83 (100) 100 Room Air 08/17/22 08:00 36.3 08/17/22 08:00 Room Air 08/17/22 07:30 36.9 08/17/22 07:00 94 08/17/22 07:00 92 124/75 (91) 100 Room Air 08/17/22 06:30 88 115/72 (86) 100 08/17/22 06:00 98 18 128/72 (91) 95 08/17/22 05:30 90 93/60 (70) 100 08/17/22 05:00 104 18 100/64 (75) 100 08/17/22 04:43 110 117/73 (84) 100 08/17/22 04:40 36.5 107 20 117/73 97 Room Air 08/17/22 04:30 104 98/80 (82) 100 08/17/22 04:22 93 14 78/54 (61) 08/17/22 04:21 36.4 95 18 78/54 100 Room Air 08/17/22 04:00 88/59 (68) 100 08/17/22 04:00 36.3 101 88/59 (68) 100 08/17/22 03:30 121 110/78 (88) 100 08/17/22 03:14 Room Air 08/17/22 03:00 105 20 107/60 (70) 100 08/17/22 03:00 107/60 (70) 100 08/17/22 02:41 101/63 (76) 100 08/17/22 02:32 36.9 105 100 21 08/17/22 02:30 120 101/63 (75) 92 08/17/22 02:15 83/58 (68) 100 08/17/22 02:05 36.4 101 18 90/61 100 Room Air 08/17/22 02:00 96 20 90/61 (71) 100 08/17/22 01:45 85/55 (62) 90 08/17/22 01:40 36.2 109 20 89/60 100 Room Air 08/17/22 01:30 106 89/60 (70) 100 08/17/22 01:16 116 86/61 (69) 100 08/17/22 01:16 116 08/17/22 01:15 25 88/54 (58) 08/17/22 01:15 36.5 105 20 88/54 (65) 100 Room Air 08/17/22 00:51 115 14 103/59 100 Room Air 08/16/22 23:12 36.9 105 14 86/56 (66) 100 Room Air I & O 08/17/22 07:00 Intake Total 2406 ml Output Total 150 ml Balance 2256 ml Height & Weight Height: '" Weight: lbs. oz. kg; 21.08 BMI Method:Estimated General Appearance: No Apparent Distress Capillary Refill: Less Than 3 Seconds Gastrointestinal: soft, other (+ abdominal bruit; nontender) Results Lab Laboratory Tests 08/16/22 23:30 08/17/22 02:05 08/17/22 05:20 08/17/22 08:28 Assessment/Plan Assessment/Plan 1 LAURA PRITCHARD MD Aug 17, 2022 10:41
[2022-08-17] MEDS: inSUlin ASPART (NovoLOG) 1 UNIT/0.01 ML (CHARGE PER UNIT) SC SCH ×3 (11:28→20:56)
[2022-08-17 11:36] LABS: BILIRUBIN,URINE NEGATIVE (NEGATIVE); CLARITY,URINE CLEAR; COLOR,URINE YELLOW; GLUCOSE, URINE (UA) NEGATIVE (NEGATIVE); KETONES,URINE NEGATIVE (NEGATIVE); LEUKOCYTE ESTERASE ,URINE NEGATIVE (NEGATIVE); NITRITE,URINE NEGATIVE (NEGATIVE); PROTEIN,URINE NEGATIVE (NEGATIVE)
--- NOTE | 2022-08-17 11:36 | History & Physical-Hospitalist ---
SHILPI BURCH 08/17/22 1136: History of Present Illness HPI/Chief Complaint Sebastián De Luna is a 67M who presented to the ER with bloody stools that began on 08/15. The stools were initially dark black and progressed to bright red before he came to the ER. He was also found to have significant hyperglycemia with elevated beta hydroxybutarate. His alcohol level was also elevated. He takes insulin at home according to the patient but it is unclear if he takes this regularly. He reports another bloody BM overnight that was dark in color. He reports this has never happened to him before. He has never had endoscopy. He denies abdominal pain, fever, or syncope. 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 This pain is still present but seems to be at his baseline. He appears to be anxious and fidgets a lot during my interview. RN reports family member brought him a clear glass of liquid this morning. The glass was gone along with the family member before RN could examine. Patient reports the drink was coffee. Source: patient Exam Limitations: no limitations Date Seen 08/17/22 Attending Physician [place] PCP Admitting Physician: Rashid Lyons MD Attending Physician: Padmini Tapia DO Referring Physician Date of Admission Aug 17, 2022 at 00:33 Home Medications & Allergies Home Medications Reviewed patient Home Medication Reconciliation performed by pharmacy medication reconciliations research technician and/or nursing. Patients Allergies have been reviewed. Allergies Allergies Coded Allergies No Known Drug Allergies ([id number]/5/11) Past Ybqijuf-Apjfui-Zpvxyw Hx Patient Social History Tobacco Use?: Yes Tobacco type used: Cigarettes Smoking Status: Current Everyday Smoker Use of E-Cig and/or Vaping dev: No Substance use?: No Alcohol Use?: Yes Alcohol type: Hard Liquor (vodka is drink of choice) Alcohol Frequency: Daily Pt feels they are or have been: No Immunizations Up To Date Date of Influenza Vaccine: Apr 28, 2021 First/Initial COVID19 Vaccinat: 01/20/2021 Second COVID19 Vaccination Dylan: 02/20/2021 Current Status Advance Directives: Yes Advance Directive Location: pt believes he has AD that was done here Communicates: Verbally Primary Language: Angolan Preferred Spoken Language: Angolan Is interpretation needed?: No Implanted or Applied Medical D: None Past Medical History Surgeries: Orthopedic (L BKA) Neuropathy Diabetes, Insulin dep PMHx: IDDM PVD SurgHx: Left foot amputation 1981 Left BKA Inguinal hernia repair Cardiac stent Family Medical History No Pertinent Family Hx Review of Systems Constitutional: No chills, No diaphoresis; weakness Respiratory: No cough, No short of breath Cardiovascular: No chest pain, No syncope Gastrointestinal: No abdominal pain, No hematemesis; melena Genitourinary: No dysuria, No hematuria Musculoskeletal: joint pain (L hip mainly) Psychiatric/Neurological: Tremors (slight tremor when drinking his water) Physical Exam Physical Exam Vital Signs Vital Signs - First Documented 08/16/22 08/17/22 23:12 02:32 Temp 36.9 Pulse 105 Resp 14 B/P (MAP) 86/56 (66) Pulse Ox 100 O2 Delivery Room Air FiO2 21 Capillary Refill : Less Than 3 Seconds Height, Weight, BMI Height: '" Weight: lbs. oz. kg; 21.08 BMI Method:Estimated General Appearance: No Apparent Distress, WD/WN HEENT: PERRL/EOMI, Moist Mucous Membranes Neck: Supple Respiratory: Chest Non Tender, Lungs Clear, No Accessory Muscle Use Cardiovascular: Regular Rate, Rhythm (has been tachycardic at times in this st ay, 90s on exam this morning), Normal Peripheral Pulses Gastrointestinal: Non Tender, Soft; No Distended Rectal: Deferred Extremity: No Swelling; Other (L BKA) Neurologic/Psychiatric: Alert, Oriented x3, Other (anxious/ fidgets on exam) Skin: Normal Color; No Diaphoresis Results Results/Procedures Labs Laboratory Tests 08/16/22 23:30 08/17/22 02:05 08/17/22 05:20 08/17/22 08:28 08/17/22 11:29 Patient resulted labs reviewed. Assessment/Plan Admission Diagnosis Gi Bleed DKA Alcohol dependence Assessment and Plan GI bleeding Received 2 units of LRRBCs overnight with appropriate response in Hgb 7.7- >9.7. General surgery consulted Never had endoscopy done before Monitor H/H and transfuse as necessary DKA Most recent blood glucose 129 Received IV insulin, and dextrose, drip stopped ABG this morning showed pH 7.38, CO2 23, and O2 of 146 Anion gap closed to 11 from 20 EICU following Lactic acidosis 2.50. 2,50. 2.10. Continue IV fluids and monitor Alcohol dependence/withdrawal CIWA protocol, monitor for agitation/ seizure activity Recheck alcohol level due to suspicious drink brought by family member Folic acid and thiamine started by [facility] Nicotine dependence Nicoderm patch Hyperkalemia 5.2 this morning No kayexalate as of now, Insulin will likely bring this level down. Continue to monitor with regular CMPs Ulcer prophylaxis with PPI Clinical Quality Measures DVT/VTE Risk/Contraindication: Contraindications-Pharm: Other *list below* Other: PADMINI Nicole DO 08/18/22 0523: History of Present Illness Source: patient Exam Limitations: no limitations Time Seen by a Provider: 09:30 Past Nirbcoq-Bowowu-Dyjfgp Hx Patient Social History Marrital Status: single Employed/Student: unemployed Tobacco Use?: Yes Smoking Status: Current Everyday Smoker Review of Systems Constitutional: see HPI Physical Exam Physical Exam General Appearance: No Apparent Distress, Anxious, Chronically ill Respiratory: Lungs Clear, Normal Breath Sounds Cardiovascular: Regular Rate, Rhythm (has been tachycardic at times in this stay, 90s on exam this morning) Assessment/Plan Admission Diagnosis Assessment: GIB DKA Non-compliance Admission Status: Inpatient Order (span 2 midnights) Reason for Inpatient Admission: dka Supervisory-Addendum Brief Verification & Attestation Participated in pt care: history, MDM, physical Personally performed: exam, history, MDM, supervision of care Care discussed with: Medical Student Procedures: n/a Results interpretation: Verified all documentation Verification and Attestation of Medical Student E/M Service A medical student performed and documented this service in my presence. I reviewed and verified all information documented by the medical student and made modifications to such information, when appropriate. I personally performed the physical exam and medical decision making. Padmini Tapia, Aug 18, 2022,05:23 SHILPI BURCH Aug 17, 2022 11:36 PADMINI TAPIA DO Aug 18, 2022 05:23
[2022-08-17 11:49] LABS: BACTERIA,URINE NEGATIVE /HPF
[2022-08-17 11:50] LABS: ALBUMIN 3.4 GM/DL (3.2-4.5); INR 1.1 (0.8-1.4); PROTHROMBIN TIME PATIENT 14.2 SEC (12.2-14.7)
[2022-08-17 11:51] LABS: CHLORIDE 103 MMOL/L (98-107); POTASSIUM 3.6 MMOL/L (3.6-5.0); SODIUM 130 MMOL/L (135-145)
[2022-08-17 11:52] LABS: CALCIUM 7.5 MG/DL (8.5-10.1)
[2022-08-17 11:53] LABS: TOTAL PROTEIN 5.6 GM/DL (6.4-8.2)
[2022-08-17 11:54] LABS: CARBON DIOXIDE 17 MMOL/L (21-32)
[2022-08-17 11:55] LABS: BILIRUBIN,TOTAL 0.5 MG/DL (0.1-1.0)
[2022-08-17 11:56] LABS: ALKALINE PHOSPHATASE 62 U/L (40-136)
[2022-08-17 11:57] LABS: CREATININE SERUM 0.88 MG/DL (0.60-1.30); GFR ESTIMATED 93
[2022-08-17 11:58] LABS: BUN/CREATININE RATIO 25
[2022-08-17 12:00] LABS: ALANINE AMINOTRANSFERASE 6 U/L (0-55); GLUCOSE 38 MG/DL (70-105)
[2022-08-17] MEDS ORDERED: NF-GLIP2.5 PO (12:13)
[2022-08-17] MEDS ORDERED: GBPN600T PO (12:13)
[2022-08-17] MEDS ORDERED: IBUP-2473 PO (12:13)
[2022-08-17] MEDS ORDERED: DULA4.5P SQ (12:13)
[2022-08-17] MEDS ORDERED: DEXTROSE 50% 50 ML (IMS) SYR ONE (12:30)
[2022-08-17] MEDS ORDERED: DEXTROSE 50% 50 ML (IMS) SYR IV ONE (12:45)
[2022-08-17] MEDS ORDERED: DEXTROSE 10% IV SCH ×2 (14:45)
[2022-08-17] MEDS ORDERED: [UNRECOGNIZED DRUG - OTHER] IV SCH ×2 (14:45)
--- NOTE | 2022-08-17 15:52 | Progress Note-Pre Operative ---
Pre-Operative Progress Note Date of Available H&P: Aug 17, 2022 Date H&P Reviewed: Aug 17, 2022 Time H&P Reviewed: 16:00 History & Physical: No changes noted Pre-Operative Diagnosis: sx GI bleed BLADIMIR DAVIDSON MD Aug 17, 2022 15:52
--- NOTE | 2022-08-17 16:57 | CONSULTATION REPORT ---
DATE OF SERVICE: 08/17/2022 ATTENDING PHYSICIAN: Dr. Lyons. ATTENDING PRIMARY CARE PHYSICIAN: Dr. Roberto Carlos Perez. HISTORY OF PRESENT ILLNESS: The patient is a 67-year-old male who presented to the Emergency Department early this morning with bloody stools. He states that this began on 08/15/2020. He reports that this was initially dark to black in color; however, this progressed to a point where this became more of a maroon color. He was also found to be significantly hyperglycemic and in diabetic ketoacidosis. He has never had any previous endoscopy done in the past. He does not report any major issues with heartburn or acid indigestion. The patient does have risk factors for peptic ulcer disease including coffee drinking as well as a 90-xzlw-iagp smoking history as well as alcohol. He was admitted to the ICU and given 2 units of packed red blood cells with appropriate elevation in hemoglobin and hematocrit. PAST MEDICAL HISTORY: Diabetes, neuropathy, peripheral vascular disease, hypertension, hypercholesterolemia. PAST SURGICAL HISTORY: Left mdolc-xwu-iuuv amputation, inguinal hernia repair, previous cardiac catheterization and stent placement. ALLERGIES: NO KNOWN DRUG ALLERGIES. MEDICATIONS: Dulaglutide 4.5 mg weekly, gabapentin 600 mg t.i.d., glipizide 2.5 mg daily, ibuprofen p.r.n. SOCIAL HISTORY: Positive smoke 40 pack years, positive for alcohol. FAMILY HISTORY: Noncontributory. PHYSICAL EXAMINATION: VITAL SIGNS: Temperature 36.6, blood pressure 135/75, pulse 75, respirations 49, pulse ox 100% on room air. REVIEW OF SYSTEMS: A well-nourished male. Currently in no acute distress. He is not experiencing any shortness of breath or difficulty breathing. No cough or sputum production. No chest pain, palpitations, diaphoresis. No nausea, vomiting. No hematemesis or coffee-ground emesis. He reports dark tarry stools, which then became more red in coloration or maroon. He states that this is his first episode. He has not had any previous endoscopy done in the past. No fever, chills, no recent inadvertent weight loss. All other review of systems negative. PHYSICAL EXAMINATION: CHEST: Few scattered wheezes or rhonchi bilaterally. HEART: Regular. No murmurs. EXTREMITIES: No lower extremity edema. Negative Homans time. HEENT: No scleral icterus. No cervical lymphadenopathy. ABDOMEN: Soft. There is mild discomfort in the epigastric region upon deep palpation. No peritoneal signs. No hernias. SKIN: Warm, dry. LABORATORY DATA: WBC 10.5, hemoglobin 9.7, hematocrit 26, platelets 131, BUN 22, creatinine 0.88. ASSESSMENT AND PLAN: A 67-year-old male with symptomatic GI bleed. We are unsure of the location of the GI bleed. However, due to his risk factors, this may likely indicate an upper GI source; however, he has also never had a colonoscopy at this point in his life at age 67 and he will also need a colonoscopy to rule out malignancy and we will schedule him for an EGD and colonoscopy. Job ID: [id number] DocumentID: [id number] Dictated Date: 08/17/2022 15:49:53 Entry Level Electrical Engineer Date: 08/17/2022 16:55:00 Dictated By: BLADIMIR DAVIDSON MD
[2022-08-17 17:19] LABS: POTASSIUM 3.5 MMOL/L (3.6-5.0)
[2022-08-17 17:20] LABS: CALCIUM 7.8 MG/DL (8.5-10.1)
[2022-08-17 17:25] LABS: CREATININE SERUM 0.84 MG/DL (0.60-1.30)
[2022-08-17] MEDS: MILK OF MAGNESIA 400 MG/5 ML 30 ML UDC PO SCH ×4 (17:56→21:56)
[2022-08-17] MEDS: MAGNESIUM OXIDE (MAG-OX)400 MG TAB PO SCH (20:55)
[2022-08-17] MEDS: GABAPENTIN 600 MG (NEURONTIN) TAB PO SCH (20:55)
[2022-08-18] MEDS: fentaNYL INJ 100 MCG/2 ML AMP IV PRN ×6 (00:15→10:47)
[2022-08-18] MEDS: MILK OF MAGNESIA 400 MG/5 ML 30 ML UDC PO SCH ×9 (00:23→16:16)
[2022-08-18] MEDS ORDERED: NS IV 500 ML 500 ML IV PRN (05:15)
[2022-08-18 05:41] LABS: ALBUMIN 3.3 GM/DL (3.2-4.5); POTASSIUM 3.5 MMOL/L (3.6-5.0)
[2022-08-18 05:42] LABS: CALCIUM 7.9 MG/DL (8.5-10.1)
[2022-08-18 05:44] LABS: TOTAL PROTEIN 5.3 GM/DL (6.4-8.2)
[2022-08-18 05:45] LABS: BASOPHILS % (AUTO) 0 % (0-10); BILIRUBIN,TOTAL 0.5 MG/DL (0.1-1.0); EOSINOPHILS % (AUTO) 0 % (0-10); HEMATOCRIT 25 % (40-54); HEMOGLOBIN 9.5 g/dL (13.3-17.7); LYMPHOCYTES # (AUTO) 1.6 10^3/uL (1.0-4.0); LYMPHOCYTES % (AUTO) 23 % (12-44); MEAN CORPUSCULAR HEMOGLOBIN 34 pg (25-34); MEAN CORPUSCULAR HGB CONC 37 g/dL (32-36); MEAN CORPUSCULAR VOLUME 90 fL (80-99); MEAN PLATELET VOLUME 9.6 fL (9.0-12.2); MONOCYTES # (AUTO) 0.6 10^3/uL (0.0-1.0); MONOCYTES % (AUTO) 8 % (0-12); NEUTROPHILS # (AUTO) 4.8 10^3/uL (1.8-7.8); NEUTROPHILS % (AUTO) 69 % (42-75); PLATELET COUNT 137 10^3/uL (130-400)
[2022-08-18 05:47] LABS: CREATININE SERUM 0.74 MG/DL (0.60-1.30); PHOSPHORUS 1.5 MG/DL (2.3-4.7)
[2022-08-18 05:50] LABS: MAGNESIUM 2.2 MG/DL (1.6-2.4)
[2022-08-18] MEDS ORDERED: MAGNESIUM 1 GM/100 ML IVPB 100 ML IV SCH (06:00)
[2022-08-18] MEDS ORDERED: KCL 20 MEQ TAB (K-DUR) PO SCH (06:00)
[2022-08-18] MEDS: POTASSIUM CL 10MEQ/50ML IVPB 50 ML IV SCH ×4 (06:12→08:02)
[2022-08-18] MEDS: inSUlin ASPART (NovoLOG) 1 UNIT/0.01 ML (CHARGE PER UNIT) SC SCH ×4 (06:22→21:23)
[2022-08-18 06:43] LABS: EOSINOPHILS % (MANUAL) 1 %; LYMPHOCYTES % (MANUAL) 21 %; MONOCYTES % (MANUAL) 5 %; NEUTROPHILS % (MANUAL) 73 %
[2022-08-18 06:44] LABS: PLATELET ESTIMATE ADEQUATE; RBC MORPH NORMAL
[2022-08-18] MEDS: inSUlin NPH (NovoLIN N) 1 UNIT/0.01 ML (CHARGE PER UNIT) SQ SCH ×2 (07:25→21:23)
[2022-08-18] MEDS: NICOTINE 21 MG (NICODERM) PATCH TD SCH (08:40)
[2022-08-18] MEDS: NICOTINE PATCH REMOVAL TP SCH (08:41)
[2022-08-18] MEDS: FOLIC ACID 1 MG TAB PO SCH (08:41)
[2022-08-18] MEDS: MAGNESIUM OXIDE (MAG-OX)400 MG TAB PO SCH ×2 (08:41→20:06)
[2022-08-18] MEDS: MULTIVIT W/MINERALS TAB (THERAGRAN M) PO SCH (08:41)
[2022-08-18] MEDS: GABAPENTIN 600 MG (NEURONTIN) TAB PO SCH ×3 (08:41→20:06)
[2022-08-18] MEDS: THIAMINE 100 MG (VITAMIN B-1) TAB PO SCH (08:42)
[2022-08-18] MEDS ORDERED: FOLIC ACID 1 MG TAB PO SCH (09:00)
--- NOTE | 2022-08-18 10:08 | Tele-ICU Progress Note ---
Subjective Date Seen by a Provider: Aug 18, 2022 Time Seen by a Provider: 10:07 Subjective/Events-last exam (Tele-ICU Physician , consultation as per request of PCP Service provided via interactive audio and video telecommunications E-CARE system to a patient admitted to ICU bed in [facility]. (Tele-ICU Physician , Progress Note ) Service provided via interactive audio and video telecommunications E-CARE system to a patient admitted to ICU bed in [facility]. Patient is seen today due to persistent need of ICU care Available chart/ vitals / labs / Images reviewed Video assessment done using teleICU camera, rest of exam as per RN Discussed with RN Events overnight : Afebrile hemodynamically stable Respiratory - RA I/O = POS Consultants: Hospital course: (08/16) 67M Admitted for GIB due to NSAIDS, chronic alcoholic (vodka) which he uses to decrease pain from amputation of LLE. Also a smoker. KAIT. Acidotic with mild hyperkalemia. Hypotensive in ER. 08/17 - off oinsulin gtt, then hypoglycemic A/P GIB ( presumed lower -RBBR), but also has exessive intake of NSAIDS - s/p transfusion 2 u prbc - PPI gtt -- coags WNL - - sx consulted - for scope 08/18 ABLA - - s/p transfusion 2 u prbc - follow HB - stable Hypotension - resolved , not on pressors DKA - off insulin gttt, then hypoglycemic --> Dextrose ( to stop today -ISS , long actin as per PCP NAGMA - ? etiology , ETON ? - resolved Hyponatremia - w/up ordered - follow closely - increased to 135 on 06/29 ns - will stop today IVF ETON -CIWA in place - did not needed hoang benzo - thiamine folate Lines : PERIPH LINE , (Central Line Necessity Reviewed) Gomez: voiding OG: Nutrition: clear liquids Analgesia: Anxiety/ delirium VTE Prophylaxis: scd Stress Ulcer Prophylaxis: ppi gtt Glycemic Control: Plans in collaboration with bedside consultants and IM MDs. Discussed with RN to reach out if any questions or concerns A total of 20 minutes of critical care time was devoted to this patient today, required to treat and/or prevent further deterioration of critical care condition ( as above ) . I am remotely monitoring this patient from another state. I am unable to do the bedside exam, and history/physical and pertinent information is taken from other notes in the computer and bedside staff. . Sepsis Event Evaluation Height, Weight, BMI Height: '" Weight: lbs. oz. kg; 21.08 BMI Method:Estimated Focused Exam Lactate Level 08/17/22 07:35: Lactic Acid Level 2.50*H 08/17/22 09:50: Lactic Acid Level 2.10*H 08/17/22 11:29: Lactic Acid Level 1.40 Exam Exam Patient acknowledged, consented, and participated in this virtual visit which was conducted using real time audio/video Vital Signs Date Time Temp Pulse Resp B/P (MAP) Pulse Ox O2 Delivery O2 Flow Rate FiO2 08/18/22 08:00 85 38 130/81 (97) 100 Room Air 08/18/22 08:00 Room Air 08/18/22 08:00 36.5 08/18/22 07:00 77 08/18/22 07:00 100 15 122/70 (87) 99 Room Air 08/18/22 06:00 90 20 123/50 (74) 99 Room Air 08/18/22 05:00 81 18 126/83 (101) 98 08/18/22 04:00 36.2 78 16 128/77 (97) 99 08/18/22 03:00 75 12 125/75 (96) 100 08/18/22 02:00 88 25 136/77 (93) 100 08/18/22 01:00 81 08/18/22 01:00 75 16 84/65 (70) 100 08/18/22 00:00 36.3 87 16 129/74 (97) 100 08/17/22 23:00 82 15 110/66 (81) 99 Room Air 08/17/22 22:00 90 20 136/69 (96) 99 08/17/22 21:00 86 18 147/83 (106) 100 08/17/22 20:18 79 17 118/74 (94) 100 08/17/22 20:00 79 20 118/74 (89) 1000 08/17/22 19:38 36.6 08/17/22 19:30 80 18 145/77 (100) 100 Room Air 08/17/22 19:04 98 08/17/22 19:00 116 20 189/104 (126) 100 08/17/22 19:00 123 08/17/22 18:30 99 Room Air 08/17/22 18:00 80 20 150/78 (102) 99 Room Air 08/17/22 17:00 85 20 141/79 (99) 92 Room Air 08/17/22 16:01 36.1 08/17/22 16:00 67 38 114/69 (84) 100 Room Air 08/17/22 16:00 Room Air 08/17/22 15:00 95 49 135/75 (95) 100 Room Air 08/17/22 14:00 72 23 135/73 (93) 100 Room Air 08/17/22 13:00 78 08/17/22 13:00 90 31 136/86 (103) 100 Room Air 08/17/22 12:00 36.6 08/17/22 12:00 Room Air 08/17/22 12:00 76 25 116/66 (83) 99 Room Air 08/17/22 11:00 107 36 144/92 (109) 100 Room Air I & O 08/18/22 07:00 Intake Total 2590 ml Output Total 4900 ml Balance -2310 ml Height & Weight Height: '" Weight: lbs. oz. kg; 21.08 BMI Method:Estimated General Appearance: No Apparent Distress, Anxious, Chronically ill HEENT: PERRL/EOMI, Moist Mucous Membranes Neck: Supple Respiratory: Lungs Clear, Normal Breath Sounds Cardiovascular: Regular Rate, Rhythm (has been tachycardic at times in this stay, 90s on exam this morning) Capillary Refill: Less Than 3 Seconds Gastrointestinal: soft, other (+ abdominal bruit; nontender) Extremity: No Swelling; Other (L BKA) Neurologic/Psychiatric: Alert, Oriented x3, Other (anxious/ fidgets on exam) Skin: Normal Color; No Diaphoresis Results Lab Laboratory Tests 08/16/22 23:30 08/17/22 02:05 08/17/22 05:20 08/17/22 08:28 08/17/22 11:29 08/17/22 17:03 08/18/22 04:51 Assessment/Plan Assessment/Plan 1 LAURA PRITCHARD MD Aug 18, 2022 10:08
--- NOTE | 2022-08-18 13:13 | Progress Note - Hospitalist ---
SHILPI BURCH 08/18/22 1313: Subjective HPI/CC On Admission Sebastián De Luna is a 67M who presented to the ER with bloody stools that began on 08/15. The stools were initially dark black and progressed to bright red before he came to the ER. He was also found to have significant hyperglycemia with elevated beta hydroxybutarate. His alcohol level was also elevated. He takes insulin at home according to the patient but it is unclear if he takes this regularly. He reports another bloody BM overnight that was dark in color. He reports this has never happened to him before. He has never had endoscopy. He denies abdominal pain, fever, or syncope. 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 This pain is still present but seems to be at his baseline. He appears to be anxious and fidgets a lot during my interview. RN reports family member brought him a clear glass of liquid this morning. The glass was gone along with the family member before RN could examine. Patient reports the drink was coffee. Subjective/Events-last exam Mr De Luna is seen at bedside this morning. He feels well this morning and denies abdominal pain. He reports that his stools were bloody after starting bowel prep for his endoscopy today. The stools have become less bloody and more brown over the course of the prep. His main complaint is the frequent stools but he knows this is temporary and necessary. He still endorses L hip pain. He seems less anxious and fidgets less today. Repeat alcohol level was in normal limits. Had an episode of hypoglycemia overnight that required dextrose. Review of Systems General: No Chills, No Night Sweats HEENT: No Head Aches Pulmonary: No Dyspnea, No Cough Cardiovascular: No: Chest Pain, Palpitations Gastrointestinal: No: Nausea, Vomiting, Abdominal Pain Genitourinary: No Dysuria, No Hematuria Neurological: No: Confusion Focused Exam Lactate Level 08/17/22 07:35: Lactic Acid Level 2.50*H 08/17/22 09:50: Lactic Acid Level 2.10*H 08/17/22 11:29: Lactic Acid Level 1.40 Objective Exam Vital Signs Vital Signs Date Time Temp Pulse Resp B/P (MAP) Pulse Ox O2 Delivery O2 Flow Rate FiO2 08/18/22 11:34 36.6 08/18/22 08:00 85 38 130/81 (97) 100 Room Air 08/17/22 02:32 21 Capillary Refill : Less Than 3 Seconds General Appearance: No Apparent Distress, WD/WN, Thin HEENT: PERRL/EOMI, Moist Mucous Membranes Neck: Supple Respiratory: Chest Non Tender, Lungs Clear, No Accessory Muscle Use Cardiovascular: Regular Rate, Rhythm, Normal Peripheral Pulses Gastrointestinal: Non Tender, Soft; No Distended Rectal: Deferred Extremity: No Swelling; Other (L BKA) Neurologic/Psychiatric: Alert, Oriented x3, Normal Mood/Affect; No Disoriented Skin: Normal Color, Warm/Dry Results/Procedures Lab Laboratory Tests 08/17/22 17:03 08/18/22 04:51 Patient resulted labs reviewed. Assessment/Plan Assessment and Plan Assess & Plan/Chief Complaint GI bleeding Received 2 units of LRRBCs 2 night ago with appropriate response in Hgb 7.7- >9.7. Now 9.5. General surgery consulted Never had endoscopy done before Monitor H/H and transfuse as necessary Upper and Lower endoscopy planned by Dr Carroll today to evaluate source of bleeding DKA Most recent blood glucose 192 Received IV insulin, and dextrose, drip stopped Episode of hypoglycemia overnight, corrected with dextrose ABG this 08/17 showed pH 7.38, CO2 23, and O2 of 146 Anion gap closed to 11 from 20 EICU following Lactic acidosis 1.40. Resolved. Continue IV fluids and monitor Alcohol dependence/withdrawal CIWA protocol, monitor for agitation/ seizure activity Folic acid and thiamine started by EICU Nicotine dependence Nicoderm patch Hyperkalemia Resolved, 3.5 this morning Continue to monitor with regular CMPs Hyponatremia 136 today. resolved with IV NaCl Ulcer prophylaxis with PPI Clinical Quality Measures DVT/VTE Risk/Contraindication: Contraindications-Pharm: Other *list below* Other: PADMINI Nicole DO 08/19/22 0643: Supervisory-Addendum Brief Verification & Attestation Participated in pt care: history, MDM, physical Personally performed: exam, history, MDM, supervision of care Care discussed with: Medical Student Procedures: n/a Results interpretation: Verified all documentation Verification and Attestation of Medical Student E/M Service A medical student performed and documented this service in my presence. I reviewed and verified all information documented by the medical student and made modifications to such information, when appropriate. I personally performed the physical exam and medical decision making. Padmini Tapia, Aug 19, 2022,06:43 SHILPI BURCH Aug 18, 2022 13:13 PADMINI TAPIA DO Aug 19, 2022 06:43
[2022-08-18] MEDS ORDERED: LACTATED RINGERS 1,000 ML IV ONE (13:36)
[2022-08-18] MEDS ORDERED: HURRICAINE EXT TUBE (BENZOCAINE) ONE (13:36)
[2022-08-18] MEDS ORDERED: LACTATED RINGERS 1,000 ML IV STA (13:37)
[2022-08-18] MEDS ORDERED: HURRICAINE EXT TUBE (BENZOCAINE) XX PRN (13:45)
[2022-08-18] MEDS ORDERED: LIDOCAINE JELLY 2% 6 ML SYRINGE MM PRN (13:45)
[2022-08-18] MEDS ORDERED: PROPOFOL INJECTION 50 ML IV ONE (14:02)
[2022-08-18] MEDS ORDERED: LIDOCAINE JELLY 2% 6 ML SYRINGE ONE (14:24)
[2022-08-18] MEDS ORDERED: PHENYLEPHRINE 100 MCG/ML 10 ML (ANESTHESIA) SYR ONE (14:42)
[2022-08-18 14:50] VITALS: BP 103/52
--- NOTE | 2022-08-18 14:54 | Anesthesia-General Post-Op ---
MAC Patient Condition Mental Status/LOC: Same as Preop Cardiovascular: Satisfactory Nausea/Vomiting: Absent Respiratory: Satisfactory Pain: Controlled Complications: Absent Post Op Complications Complications None Follow Up Care/Instructions Patient Instructions None needed. Anesthesiology Discharge Order Discharge Order Patient is doing well, no complaints, stable vital signs, no apparent adverse anesthesia problems. No complications reported per nursing. DARLINE PRADO CRNA Aug 18, 2022 14:54
[2022-08-18 14:55] VITALS: BP 76/48
--- NOTE | 2022-08-18 14:58 | Progress Note-Post Operative ---
Post-Operative Progess Note Surgeon (s)/Seniour Insight Manager (s) Surgeon BLADIMIR DAVIDSON MD Seniour Insight Manager: none Pre-Operative Diagnosis sx GI bleed Post-Operative Diagnosis 3 type 3 prepyloric ulcers with overlying fibrin clot, no active bleed. chronic stage 2 ext and int hemorrhoids. Procedure & Operative Findings Date of Procedure 08/18/22 Procedure Performed/Findings EGD with bx. Colonoscopy. Anesthesia Type mac Estimated Blood Loss Estimated blood loss (mL): minimal Specimens/Packing Specimens Removed pyloric ulcer, ge jxn. BLADIMIR DAVIDSON MD Aug 18, 2022 14:58
[2022-08-18 15:00] VITALS: BP 83/55
[2022-08-18 15:34] VITALS: BP 137/80
[2022-08-18 18:35] VITALS: BP 117/64
[2022-08-18 19:11] VITALS: BP 117/64
--- NOTE | 2022-08-18 21:07 | OPERATIVE REPORT ---
DATE OF SERVICE: 08/18/2022 ATTENDING PRIMARY CARE PHYSICIAN: Dr. Roberto Carlos Perez. PREOPERATIVE DIAGNOSIS: Gastrointestinal bleed. POSTOPERATIVE DIAGNOSES: Reflux esophagitis, [place] between grade B and C, small to moderate size hiatal hernia 2.5 cm in size, severe gastritis with 3 small type 3 prepyloric ulcers, all with overlying fibrin clots and no active bleeding. No duodenal ulcers. Chronic stage II external and internal hemorrhoids. PROCEDURE: EGD with biopsy, colonoscopy. SURGEON: Bladimir Davidson MD ANESTHESIA: Monitored anesthesia care. ESTIMATED BLOOD LOSS: Minimal. FINDINGS: Reflux esophagitis, [place] between grade B and C, small to moderate size hiatal hernia 2.5 cm in size, severe gastritis with 3 small type 3 prepyloric ulcers, all with overlying fibrin clots and no active bleeding. No duodenal ulcers. Chronic stage II external and internal hemorrhoids. DISPOSITION: The patient tolerated the procedure well. INDICATIONS FOR PROCEDURE: The patient is a 67-year-old male who presented to the emergency department early in the morning with bloody stools. He states that this began on 08/15/2020. He reports that this was initially dark to black in color. However, this progressed to the point where it became more of a maroon color. He was also found to be significantly hyperglycemic and in diabetic ketoacidosis. He has never had any previous endoscopy done in the past. He does have risk factors including smoking 2 packs a day for many years as well as drinking alcohol and caffeinated beverages on a daily basis. DESCRIPTION OF PROCEDURE: The patient was brought to the endoscopy suite and laid in the left lateral decubitus position. After adequate IV pain and sedative medications and monitored anesthesia care, the mouthpiece was applied. The endoscope was placed in the mouth, visualizing the pharynx and hypopharyngeal region. Vocal cords, epiglottis and vallecula identified and appeared to be normal. The endoscope was gently intubated to esophageal opening and esophagus insufflated. The endoscope was then advanced through the first, second, third portions of esophagus at the level of the GE junction, a reflux esophagitis, [place] between grade B and C identified with no ulcerations or stricture. A biopsy was taken of the GE junction with forceps with visualization of good hemostasis. The endoscope was then advanced into the stomach. The endoscope retroflexed visualizing a small to moderate size hiatal hernia approximately 2.5 cm in size. There was a severe gastritis. There were 3 type 3 prepyloric ulcers which were identified, all small with overlying fibrin clots with no active bleeding. A biopsy was taken of one of these ulcers with forceps with visualization of good hemostasis. The endoscope was then advanced to the pylorus and the first and second portions of the duodenum, which appeared normal with no duodenal ulcerations. The endoscope was then slowly withdrawn while taking second look and suctioning of residual air with no additional findings. A digital rectal examination was performed which revealed chronic stage II, external and internal hemorrhoids, not actively edematous nor inflamed and no bleeding. Normal sphincter tone was felt and there were no palpable masses. Prostate gland was palpable and appeared to be normal. The endoscope was then intubated into the anus, rectum gently insufflated. The endoscope was then advanced to the valves of [place] of the rectum with no polyps or any neoplasms identified. Through the sigmoid colon, no diverticulosis identified. The endoscope was then advanced to the remainder of the descending, transverse and ascending colon to the cecum, which appeared normal. There was no active bleeding sources as well as no polyps or any neoplasms identified. The endoscope was then slowly withdrawn while taking a second look and suctioning of residual air with no additional findings. The patient tolerated the procedure well. We will recommend the necessary lifestyle and dietary accommodation, which starts with cessation of smoking, alcohol as well as caffeinated beverages as well as taking smaller and more frequent meals and avoid spicy, greasy and acidic foods as well. We will also start him on Protonix 40 mg daily as well as Carafate 1 gram q.i.d. for 2 weeks then PRN. We will also recommend a followup EGD in 8 weeks to verify confirmation of healing of the ulcers. We will also recommend a high-fiber diet with at least 30 g of fiber daily to promote soft stools on a daily basis. There were no neoplasms identified and if he is asymptomatic from a lower gastrointestinal standpoint, he does not need another colonoscopy for another 10 years. Job ID: [id number] DocumentID: [id number] Dictated Date: 08/18/2022 15:08:50 Computer Support Technician Date: 08/18/2022 21:06:00 Dictated By: BLADIMIR DAVIDSON MD [facility]
[2022-08-19 00:20] VITALS: BP 104/61
[2022-08-19 03:41] VITALS: BP 132/80
[2022-08-19] MEDS: fentaNYL INJ 100 MCG/2 ML AMP IV PRN ×3 (04:02→12:52)
[2022-08-19 06:21] LABS: BASOPHILS % (AUTO) 0 % (0-10); EOSINOPHILS # (AUTO) 0.1 10^3/uL (0.0-0.3); EOSINOPHILS % (AUTO) 2 % (0-10); HEMATOCRIT 25 % (40-54); HEMOGLOBIN 9.1 g/dL (13.3-17.7); LYMPHOCYTES # (AUTO) 1.5 10^3/uL (1.0-4.0); LYMPHOCYTES % (AUTO) 19 % (12-44); MEAN CORPUSCULAR HEMOGLOBIN 34 pg (25-34); MEAN CORPUSCULAR HGB CONC 36 g/dL (32-36); MEAN CORPUSCULAR VOLUME 93 fL (80-99); MEAN PLATELET VOLUME 9.3 fL (9.0-12.2); MONOCYTES # (AUTO) 0.6 10^3/uL (0.0-1.0); MONOCYTES % (AUTO) 8 % (0-12); NEUTROPHILS # (AUTO) 5.6 10^3/uL (1.8-7.8); NEUTROPHILS % (AUTO) 71 % (42-75); PLATELET COUNT 179 10^3/uL (130-400); WHITE BLOOD COUNT 7.8 10^3/uL (4.3-11.0)
[2022-08-19] MEDS: MULTIVIT W/MINERALS TAB (THERAGRAN M) PO SCH (06:24)
[2022-08-19] MEDS: inSUlin ASPART (NovoLOG) 1 UNIT/0.01 ML (CHARGE PER UNIT) SC SCH ×3 (06:24→11:21)
[2022-08-19] MEDS: THIAMINE 100 MG (VITAMIN B-1) TAB PO SCH (06:24)
[2022-08-19 06:44] LABS: ALBUMIN 3.3 GM/DL (3.2-4.5); BILIRUBIN,TOTAL 0.5 MG/DL (0.1-1.0); CALCIUM 8.3 MG/DL (8.5-10.1); CREATININE SERUM 0.81 MG/DL (0.60-1.30); MAGNESIUM 2.4 MG/DL (1.6-2.4); POTASSIUM 3.6 MMOL/L (3.6-5.0); TOTAL PROTEIN 5.7 GM/DL (6.4-8.2)
[2022-08-19 07:33] VITALS: BP 123/76
[2022-08-19] MEDS: MAGNESIUM OXIDE (MAG-OX)400 MG TAB PO SCH (08:41)
[2022-08-19] MEDS: NICOTINE 21 MG (NICODERM) PATCH TD SCH (08:41)
[2022-08-19] MEDS: GABAPENTIN 600 MG (NEURONTIN) TAB PO SCH ×2 (08:41→12:52)
[2022-08-19] MEDS: FOLIC ACID 1 MG TAB PO SCH (08:42)
[2022-08-19] MEDS: NICOTINE PATCH REMOVAL TP SCH (08:44)
[2022-08-19] MEDS: inSUlin NPH (NovoLIN N) 1 UNIT/0.01 ML (CHARGE PER UNIT) SQ SCH (08:45)
[2022-08-19 11:38] VITALS: BP 172/91
[2022-08-19] MEDS ORDERED: THIA100T80 PO (11:40)
[2022-08-19] MEDS ORDERED: GBPN600T PO (11:40)
[2022-08-19] MEDS ORDERED: FOLI1TAB33 PO (11:40)
[2022-08-19] MEDS ORDERED: MULT-1137 PO (11:40)
[2022-08-19] MEDS ORDERED: PANT40TA2 PO (11:40)
--- NOTE | 2022-08-19 11:41 | Discharge Summary ---
Discharge Summary Hospital Course Was the Problem List Reviewed?: Yes Problems/Dx: (1) GI bleed due to NSAIDs Status: Acute (2) Type 2 diabetes mellitus with complication Hospital Course Date of Admission: Aug 17, 2022 at 00:33 Admission Diagnosis : Family Physician/Provider: Roberto Carlos Perez DO Date of Discharge: 08/19/22 Discharge Diagnosis: [ ] Hospital Course: Progress Note Sebastián De Luna is a 67yoM with past medical history of DM, PVD, and L BKA. HPI from ER "Patient is a 67-year-old male who presents to the emergency department by EMS chief complaint blood in stool. Patient states he noted black stool today, progressed to bright red blood. He has never had anything like this before. He states he has never had a colonoscopy. His only medical problem is diabetes. He is on insulin weekly he states. He has not had any insulin today, he does not believe he has eaten today. He states chronic alcoholic, drink of choice is vodka. 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 He is a smoker. Denies abdominal pain. Denies nausea. No vomiting today. He did have alcohol earlier today. No urinary complaints. States that he takes 6 ibuprofen at a time up to 6 times daily. "Whenever I am in pain". Primary care physician is Dr. Perez at [facility] Slightly tachycardic at presentation HR105 with BP systolic 88/55" In the ER he was found to be hyperglycemic and anemic. Leukocytosis also noted. He reported moderate alcohol consumption to help with pain in his L leg, he also uses NSAIDs regularly for pain. He was given fluids, insulin and pantoprazole. He was admitted to the ICU for GI bleed and DKA with consults made to general surgery and EICU. HPI on admission "Sebastián De Luna is a 67M who presented to the ER with bloody stools that began on 08/15. The stools were initially dark black and progressed to bright red before he came to the ER. He was also found to have significant hyperglycemia with elevated beta hydroxybutarate. His alcohol level was also elevated. He takes insulin at home according to the patient but it is unclear if he takes this regularly. He reports another bloody BM overnight that was dark in color. He reports this has never happened to him before. He has never had endoscopy. He denies abdominal pain, fever, or syncope. 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 This pain is still present but seems to be at his baseline. He appears to be anxious and fidgets a lot during my interview. RN reports family member brought him a clear glass of liquid this morning. The glass was gone along with the family member before RN could examine. Patient reports the drink was coffee." With fluid replacement and insulin his hyperglycemia resolved and eventually his anion gap closed as well. Other electrolyte abnormalities included hyponatremia that corrected with normal saline. On 08/17 he had an episode of hypoglycemia treated with dextrose. Similar episode on 08/19 that resolved shortly with sugars in the 180s. He received 2 units of LRRBCs on 08/17 with appropriate response in Hgb. Hgb held steady thereafter. Pt received IV PPI in the ICU. Folic acid and thiamine supplementation also. ABG on 08/17 revealed elevated O2 and reduced CO2. Leukocytosis resolved over his admission. Endoscopy by Dr Carroll on 08/18 revealed 3 pyloric ulcers and gastritis. Ulcers are likely due to NSAID use which is consistent with patient's reported history. Dr Carroll recommended Protonix 40 mg daily as well as Carafate 1 gram q.i.d. for 2 weeks then PRN. He also recommended follow up EGD in 8 weeks to check for healing of ulcers. On 08/19 he complained of some mild irritation in bilateral eyes with minimal clear discharge, treated with saline flush. He reported no abdominal pain and recurring bloody stools.He reported feeling ready for discharge with no concerns at that time. He was discharged to home with instructions to follow up with PCP and Dr Carroll. Protonix and carafate added. SHILPI BURCH Labs and Pending Lab Test: Laboratory Tests 08/18/22 15:42: Glucometer 197H 08/18/22 20:56: Glucometer 157H 08/19/22 05:56: White Blood Count 7.8, Red Blood Count 2.72L, Hemoglobin 9.1L, Hematocrit 25L, Mean Corpuscular Volume 93, Mean Corpuscular Hemoglobin 34, Mean Corpuscular Hemoglobin Concent 36, Red Cell Distribution Width 14.5, Platelet Count 179, Mean Platelet Volume 9.3, Immature Granulocyte % (Auto) 0, Neutrophils (%) (Auto) 71, Lymphocytes (%) (Auto) 19, Monocytes (%) (Auto) 8, Eosinophils (%) (Auto) 2, Basophils (%) (Auto) 0, Neutrophils # (Auto) 5.6, Lymphocytes # (Auto) 1.5, Monocytes # (Auto) 0.6, Eosinophils # (Auto) 0.1, Basophils # (Auto) 0.0, Immature Granulocyte # (Auto) 0.0, Sodium Level 138, Potassium Level 3.6, Chloride Level 106, Carbon Dioxide Level 24, Anion Gap 8, Blood Urea Nitrogen 9, Creatinine 0.81, Estimat Glomerular Filtration Rate 95, BUN/Creatinine Ratio 11, Glucose Level 130H, Calcium Level 8.3L, Corrected Calcium 8.9, Magnesium Level 2.4, Total Bilirubin 0.5, Aspartate Amino Transf (AST/SGOT) 19, Alanine Aminotransferase (ALT/SGPT) 11, Alkaline Phosphatase 58, Total Protein 5.7L, Albumin 3.3 08/19/22 06:16: Glucometer 148H 08/19/22 11:18: Glucometer 33*L 08/19/22 11:20: Glucometer 38*L Microbiology 08/17/22 MRSA Screen - Final, Complete MRSA not isolated Home Meds Active Protonix (Pantoprazole Sodium) 40 Mg Tablet.dr 40 Mg PO BID Tab-A-[place]roilan Multivit with Iron (Multivitamin/Iron/Folic Acid) 18 Mg Iron-400 Mcg Tablet 1 Ea PO DAILY@0700 Vitamin B-1 (Thiamine HCl) 100 Mg Tablet 100 Mg PO DAILY@0700 Folic Acid 1 Mg Tablet 1 Mg PO DAILY Gabapentin 600 Mg Tablet 600 Mg PO TID LAST FILLED 07-01-2022 #84/28 DAY SUPPLY Reported Glipizide ER (Glipizide) 2.5 Mg Tab 2.5 Mg PO DAILY Ibuprofen 200 Mg Tablet 1,200 Mg PO Q6H PRN TAKES 6 (200MG) TABS Trulicity (Dulaglutide) 4.5 Mg/0.5 Ml Pen.injctr 4.5 Mg SQ WED Assessment/Pt Instructions pcp 1 week Discharge Planning: <30 minutes discharge planning Discharge Physical Examination Vital Signs Vital Signs Date Time Temp Pulse Resp B/P (MAP) Pulse Ox O2 Delivery O2 Flow Rate FiO2 08/19/22 11:38 36.2 81 18 172/91 (118) 98 Room Air 08/19/22 03:41 0.00 0.00 08/17/22 02:32 21 General Appearance: No Apparent Distress, WD/WN, Chronically ill Allergies: Coded Allergies: No Known Drug Allergies (Unverified , 05/02/11) Discharge Summary Date of Admission Aug 17, 2022 at 00:33 Date of Discharge Discharge Date: Aug 19, 2022 Admission Diagnosis Assessment: SARA DKA Non-compliance Clinical Quality Measures DVT/VTE Risk/Contraindication: Contraindications-Pharm: Other *list below* Other: CHIP Nicole DO Aug 19, 2022 11:41
[2022-08-19] MEDS ORDERED: PANTOPRAZOLE 40 MG (PROTONIX) TAB PO SCH (11:45)
--- NOTE | 2022-08-19 14:13 | Progress Note ---
SHILPI BURCH 08/19/22 1413: Progress Note Sebastián De Luna is a 67yoM with past medical history of DM, PVD, and L BKA. HPI from ER "Patient is a 67-year-old male who presents to the emergency department by EMS chief complaint blood in stool. Patient states he noted black stool today, progressed to bright red blood. He has never had anything like this before. He states he has never had a colonoscopy. His only medical problem is diabetes. He is on insulin weekly he states. He has not had any insulin today, he does not believe he has eaten today. He states chronic alcoholic, drink of choice is vodka. 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 He is a smoker. Denies abdominal pain. Denies nausea. No vomiting today. He did have alcohol earlier today. No urinary complaints. States that he takes 6 ibuprofen at a time up to 6 times daily. "Whenever I am in pain". Primary care physician is Dr. Perez at [facility] Slightly tachycardic at presentation HR105 with BP systolic 88/55" In the ER he was found to be hyperglycemic and anemic. Leukocytosis also noted. He reported moderate alcohol consumption to help with pain in his L leg, he also uses NSAIDs regularly for pain. He was given fluids, insulin and pantoprazole. He was admitted to the ICU for GI bleed and DKA with consults made to general surgery and EICU. HPI on admission "Sebastián De Luna is a 67M who presented to the ER with bloody stools that began on 08/15. The stools were initially dark black and progressed to bright red before he came to the ER. He was also found to have significant hyperglycemia with elevated beta hydroxybutarate. His alcohol level was also elevated. He takes insulin at home according to the patient but it is unclear if he takes this regularly. He reports another bloody BM overnight that was dark in color. He reports this has never happened to him before. He has never had endoscopy. He denies abdominal pain, fever, or syncope. 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 This pain is still present but seems to be at his baseline. He appears to be anxious and fidgets a lot during my interview. RN reports family member brought him a clear glass of liquid this morning. The glass was gone along with the family member before RN could examine. Patient reports the drink was coffee." With fluid replacement and insulin his hyperglycemia resolved and eventually his anion gap closed as well. Other electrolyte abnormalities included hyponatremia that corrected with normal saline. On 08/17 he had an episode of hypoglycemia treated with dextrose. Similar episode on 08/19 that resolved shortly with sugars in the 180s. He received 2 units of LRRBCs on 08/17 with appropriate response in Hgb. Hgb held steady thereafter. Pt received IV PPI in the ICU. Folic acid and thiamine supplementation also. ABG on 08/17 revealed elevated O2 and reduced CO2. Leukocytosis resolved over his admission. Endoscopy by Dr Carroll on 08/18 revealed 3 pyloric ulcers and gastritis. Ulcers are likely due to NSAID use which is consistent with patient's reported history. Dr Carroll recommended Protonix 40 mg daily as well as Carafate 1 gram q.i.d. for 2 weeks then PRN. He also recommended follow up EGD in 8 weeks to check for healing of ulcers. On 08/19 he complained of some mild irritation in bilateral eyes with minimal clear discharge, treated with saline flush. He reported no abdominal pain and recurring bloody stools.He reported feeling ready for discharge with no concerns at that time. He was discharged to home with instructions to follow up with PCP and Dr Carroll. Protonix and carafate added. PADMINI TAPIA DO 08/19/222110: Supervisory-Addendum Brief Verification & Attestation Participated in pt care: history, MDM, physical Personally performed: exam, history, MDM, supervision of care Care discussed with: Medical Student Procedures: n/a Results interpretation: Verified all documentation Verification and Attestation of Medical Student E/M Service A medical student performed and documented this service in my presence. I reviewed and verified all information documented by the medical student and made modifications to such information, when appropriate. I personally performed the physical exam and medical decision making. Padmini Tapia Aug 19, 2022,21:11 SHILPI BURCH Aug 19, 2022 14:13 PADMINI TAPIA DO Aug 19, 2022 21:11
[2022-08-19 16:05] VITALS: BP 128/72
--- NOTE | 2022-08-19 16:57 | Progress Note ---
Subjective Date Seen by a Provider: Aug 19, 2022 Time Seen by a Provider: 16:00 Subjective/Events-last exam doing well. tolerating diet. hb stable. states will stop drinking and smoking. Focused Exam Lactate Level 08/17/22 07:35: Lactic Acid Level 2.50*H 08/17/22 09:50: Lactic Acid Level 2.10*H 08/17/22 11:29: Lactic Acid Level 1.40 Objective Exam Vital Signs Date Time Temp Pulse Resp B/P (MAP) Pulse Ox O2 Delivery O2 Flow Rate FiO2 08/19/22 16:05 36.7 87 16 128/72 (90) 100 Room Air 08/19/22 11:38 36.2 81 18 172/91 (118) 98 Room Air 08/19/22 08:00 Room Air 08/19/22 07:33 36.4 78 18 123/76 (92) 99 Room Air 08/19/22 07:24 Room Air 08/19/22 03:41 36.2 97 18 132/80 (97) 98 Room Air 0.00 0.00 08/19/22 00:20 36.9 88 18 104/61 (75) 97 Room Air 08/18/22 20:05 Room Air 08/18/22 19:11 36.2 97 20 117/64 (81) 100 Room Air 08/18/22 18:57 99 Room Air 08/18/22 18:35 36.2 97 20 117/64 (81) 99 Room Air I & O 08/19/22 07:00 Intake Total 1830 ml Output Total 750 ml Balance 1080 ml Capillary Refill : Less Than 3 Seconds General Appearance: No Apparent Distress HEENT: PERRL/EOMI Neck: Full Range of Motion Respiratory: Chest Non Tender, Decreased Breath Sounds Cardiovascular: Regular Rate, Rhythm Gastrointestinal: normal bowel sounds, non tender, soft Extremity: Normal Capillary Refill Neurologic/Psychiatric: Alert, Oriented x3 Skin: Normal Color Lymphatic: No Adenopathy Results Lab Laboratory Tests 08/18/22 20:56: Glucometer 157H 08/19/22 05:56: White Blood Count 7.8, Red Blood Count 2.72L, Hemoglobin 9.1L, Hematocrit 25L, Mean Corpuscular Volume 93, Mean Corpuscular Hemoglobin 34, Mean Corpuscular Hemoglobin Concent 36, Red Cell Distribution Width 14.5, Platelet Count 179, Mean Platelet Volume 9.3, Immature Granulocyte % (Auto) 0, Neutrophils (%) (Auto) 71, Lymphocytes (%) (Auto) 19, Monocytes (%) (Auto) 8, Eosinophils (%) (Auto) 2, Basophils (%) (Auto) 0, Neutrophils # (Auto) 5.6, Lymphocytes # (Auto) 1.5, Monocytes # (Auto) 0.6, Eosinophils # (Auto) 0.1, Basophils # (Auto) 0.0, Immature Granulocyte # (Auto) 0.0, Sodium Level 138, Potassium Level 3.6, Chloride Level 106, Carbon Dioxide Level 24, Anion Gap 8, Blood Urea Nitrogen 9, Creatinine 0.81, Estimat Glomerular Filtration Rate 95, BUN/Creatinine Ratio 11, Glucose Level 130H, Calcium Level 8.3L, Corrected Calcium 8.9, Magnesium Level 2.4, Total Bilirubin 0.5, Aspartate Amino Transf (AST/SGOT) 19, Alanine Aminotransferase (ALT/SGPT) 11, Alkaline Phosphatase 58, Total Protein 5.7L, Albumin 3.3 08/19/22 06:16: Glucometer 148H 08/19/22 11:18: Glucometer 33*L 08/19/22 11:20: Glucometer 38*L 08/19/22 11:47: Glucometer 82 08/19/22 12:43: Glucometer 182H 08/19/22 15:56: Glucometer 168H Microbiology 08/17/22 MRSA Screen - Final, Complete MRSA not isolated Assessment/Plan Assessment/Plan Assess & Plan/Chief Complaint anemia secondary to multiple type 3 prepyloric ulcer with overlying fibrin clot and no active bleed. on PPI and carafate. home soon. he will need to f/u around 8 weeks for f/u EGD to verify healing of ulcers. Clinical Quality Measures DVT/VTE Risk/Contraindication: Contraindications-Pharm: Other *list below* Other: BLADIMIR Stoddard MD Aug 19, 2022 16:57
[2022-08-19 17:00] VITALS: BP 128/72
[2022-08-20] MEDS ORDERED: inSUlin NPH (NovoLIN N) 1 UNIT/0.01 ML (CHARGE PER UNIT) SQ SCH (07:00)
== END 2022-08-19 17:00 | disposition home or self-care (01) | DRG 377 ==
LOC: EDUNIT# 23:08 → ER 23:11 → ICU 08-17 00:33 → 4TH 08-18 12:16
PROVIDERS: ADMIT Internal Medicine; ATTEND Internal Medicine
PROC: 0DJD8ZZ Inspection of Lower Intestinal Tract, Via Natural or Artificial Opening Endoscopic (ICD-10-PCS; 2022-08-18)
PROC: 0DB48ZX Excision of Esophagogastric Junction, Via Natural or Artificial Opening Endoscopic, Diagnostic (ICD-10-PCS; principal; 2022-08-18 14:15)
PROC: 0DB68ZX Excision of Stomach, Via Natural or Artificial Opening Endoscopic, Diagnostic (ICD-10-PCS; 2022-08-18 14:15)
DX: K25.4 Chronic or unspecified gastric ulcer with hemorrhage (principal); E11.10 Type 2 diabetes mellitus with ketoacidosis without coma; F10.239 Alcohol dependence with withdrawal, unspecified; E87.1 Hypo-osmolality and hyponatremia; D62 Acute posthemorrhagic anemia; N17.9 Acute kidney failure, unspecified; E11.40 Type 2 diabetes mellitus with diabetic neuropathy, unspecified; E11.649 Type 2 diabetes mellitus with hypoglycemia without coma; K29.70 Gastritis, unspecified, without bleeding; Y90.2 Blood alcohol level of 40-59 mg/100 ml; K64.1 Second degree hemorrhoids; G54.6 Phantom limb syndrome with pain; F17.210 Nicotine dependence, cigarettes, uncomplicated; E86.0 Dehydration; I73.9 Peripheral vascular disease, unspecified; E87.5 Hyperkalemia; I95.9 Hypotension, unspecified; K21.00 Gastro-esophageal reflux disease with esophagitis, without bleeding; K44.9 Diaphragmatic hernia without obstruction or gangrene; Z89.512 Acquired absence of left leg below knee; Z79.4 Long term (current) use of insulin; T39.395A Adverse effect of other nonsteroidal anti-inflammatory drugs [NSAID], initial encounter
CPT/HCPCS: 36415; 36600; 80048; 80053; 80320; 81000; 82010; 82805; 82947; 83036; 83605; 83735; 83930; 83935; 84100; 84443; 85007; 85025; 85027; 85610; 85730; 86850; 86900; 86901; 86920; 87081; 93005

== ENCOUNTER 2022-08-27 11:29 | Inpatient (IN) | payer MEDICARE, MEDICAID ==
[~2022-08-27] VITALS: Ht 167 cm; Wt 58.7 kg
[~2022-08-27 11:29] MED LIST changes: +DULA4.5P SQ; +FOLI1TAB33 PO; +GBPN600T PO; +IBUP-2473 PO; +MULT-1137 PO; +NF-GLIP2.5 PO; +PANT40TA2 PO; +THIA100T80 PO
[2022-08-27] MEDS ORDERED: NS IV 1000 ML 1,000 ML IV SCH ×3 (12:00→14:45)
[2022-08-27 12:10] LABS: BASOPHILS % (AUTO) 0 % (0-10); EOSINOPHILS # (AUTO) 0.1 10^3/uL (0.0-0.3); EOSINOPHILS % (AUTO) 1 % (0-10); HEMATOCRIT 37 % (40-54); HEMOGLOBIN 12.1 g/dL (13.3-17.7); LYMPHOCYTES # (AUTO) 1.2 10^3/uL (1.0-4.0); LYMPHOCYTES % (AUTO) 9 % (12-44); MEAN CORPUSCULAR HEMOGLOBIN 33 pg (25-34); MEAN CORPUSCULAR HGB CONC 33 g/dL (32-36); MEAN CORPUSCULAR VOLUME 102 fL (80-99); MEAN PLATELET VOLUME 8.7 fL (9.0-12.2); MONOCYTES # (AUTO) 0.9 10^3/uL (0.0-1.0); MONOCYTES % (AUTO) 7 % (0-12); NEUTROPHILS # (AUTO) 11.3 10^3/uL (1.8-7.8); NEUTROPHILS % (AUTO) 83 % (42-75); PLATELET COUNT 500 10^3/uL (130-400); WHITE BLOOD COUNT 13.6 10^3/uL (4.3-11.0)
--- NOTE | 2022-08-27 12:11 | ED General ---
General Chief Complaint: General Problems/Pain Stated Complaint: LETHARGY | WEAKNESS Nursing Triage Note: PT TO RM 4 PER W/C, PT CO OF INCREASED WEAKNESS, SINCE BEING RELEASED FROM HOSP APPROX A WEEK AGO. PT STATES ALL HE IS DOING IS SLEEPING, PT IS IDDM, AND HAS A L BKA. Source of Information: Patient Exam Limitations: No Limitations (ADINA MCKOY APRN) History of Present Illness Date Seen by Provider: Aug 27, 2022 Time Seen by Provider: 11:50 Initial Comments 67-year-old male presents to the ED with reports of weakness since he was discharged from the hospital last week. He was admitted for GI bleed and DKA. States that since he left the hospital he has been sleeping constantly. Patient is speaking slowly due to fatigue. Reports some mild shortness of breath. Only other complaint is left upper arm pain, thinks it is due to sleeping on it. He denies fevers, cough, chest pain, abdominal pain, nausea, vomiting, diarrhea, constipation, dysuria. States last bowel movement was a couple days ago, states this is normal for him. States that since he left the hospital he has not had any bloody stools, no black tarry stools, he stopped taking ibuprofen and switch to Tylenol, and he has stopped drinking. He reports that he has been taking 4 tablets of Tylenol 6 times a day. Patient educated on the dangers of this, and the need to decrease his dose. He states he takes this many because that is how many it takes to get rid of his pain. 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 He is currently not complaining of this pain. Currently takes Tylenol, gabapentin, and Trulicity. States he has not been checking his blood sugar. States he is waiting on a real-time continuous glucose monitor. (ADINA MCKOY APRN) Allergies and Home Medications Allergies Coded Allergies: No Known Drug Allergies (Unverified , 05/02/11) Patient Home Medication List Home Medication List Reviewed: Yes (ADINA MCKOY APRN) Dulaglutide (Trulicity) 4.5 Mg/0.5 Ml Pen.injctr, 4.5 MG SQ WED, (Reported) Entered as Reported by: BAKARI PRATT on 08/17/22 1213 Folic Acid (Folic Acid) 1 Mg Tablet, 1 MG PO DAILY Prescribed by: CHIP TAPIA on 08/19/22 1140 Gabapentin (Gabapentin) 600 Mg Tablet, 600 MG PO TID Prescribed by: CHIP TAPIA on 08/19/22 1140 Glipizide (Glipizide ER) 2.5 Mg Tab, 2.5 MG PO DAILY, (Reported) Entered as Reported by: BAKARI PRATT on 08/17/22 1213 Multivitamin/Iron/Folic Acid (Tab-A-Froilan Multivit with Iron) 18 Mg Iron-400 Mcg Tablet, 1 EA PO DAILY@0700 Prescribed by: CHIP TAPIA on 08/19/22 1140 Pantoprazole Sodium (Protonix) 40 Mg Tablet.dr, 40 MG PO BID Prescribed by: CHIP TAPIA on 08/19/22 1140 Thiamine HCl (Vitamin B-1) 100 Mg Tablet, 100 MG PO DAILY@0700 Prescribed by: CHIP TAPIA on 08/19/22 1140 Review of Systems Review of Systems Constitutional: see HPI (ADINA MCKOY APRN) Past Fcaixzj-Malaaw-Rwysct Hx Immunizations Up To Date First/Initial COVID19 Vaccinat: 01/20/2021 Second COVID19 Vaccination Dylan: 02/20/2021 Third COVID19 Vaccination Date: 09/03/2021 (ADINA MCKOY APRN) Past Medical History Surgery/Hospitalization HX: DM Surgeries: Yes Orthopedic Neuropathy Endocrine: Yes Diabetes, Insulin dep (ADINA MCKOY APRN) Family Medical History No Pertinent Family Hx (ADINA MCKOY APRN) Physical Exam Vital Signs Vital Signs - First Documented 08/27/22 11:35 Pulse 111 Resp 14 B/P (MAP) 111/75 (87) Pulse Ox 100 (CRIS ISAAC MD) Vital Signs Capillary Refill : Less Than 3 Seconds (ADINA MCKOY APRN) Height, Weight, BMI Height: '" Weight: lbs. oz. kg; 18.00 BMI Method:Estimated General Appearance: No Apparent Distress, Thin, Other (Weak) Neck: Normal Inspection, Supple Respiratory: Lungs Clear, Normal Breath Sounds, No Accessory Muscle Use, No Respiratory Distress Cardiovascular: No Edema, No Gallop, No JVD, No Murmur, Tachycardia Gastrointestinal: Non Tender (Right upper quadrant), Soft (Right upper quadrant) Extremity: Normal Inspection, Normal Range of Motion, Non Tender (Right upper arm) Neurologic/Psychiatric: Alert, Normal Mood/Affect, Other (Weak, slowed speech) Skin: Normal Color, Warm/Dry (ADINA MCKOY APRN) Procedures/Interventions Date of ETT Placement: November 16, 2020 Time of ETT Placement: 1510 (ADINA MCKOY APRN) Progress/Results/Core Measures Suspected Sepsis SIRS Temperature: Pulse: 111 Respiratory Rate: 14 Laboratory Tests 08/27/22 11:55: White Blood Count 13.6H Blood Pressure 111 /75 Mean: 87 Laboratory Tests 08/27/22 11:55: Creatinine 1.87H, INR Comment 1.1, Platelet Count 500H, Total Bilirubin 0.3 (ADINA MCKOY APRN) Results/Orders Lab Results Laboratory Tests Test 08/27/22 11:45 08/27/22 11:55 08/27/22 12:21 Range/Units Glucometer 383 H 70-110 MG/DL White Blood Count 13.6 H 4.3-11.0 10^3/uL Red Blood Count 3.63 L 4.30-5.52 10^6/uL Hemoglobin 12.1 L 13.3-17.7 g/dL Hematocrit 37 L 40-54 % Mean Corpuscular Volume 102 H 80-99 fL Mean Corpuscular Hemoglobin 33 25-34 pg Mean Corpuscular Hemoglobin Concent 33 32-36 g/dL Red Cell Distribution Width 15.0 H 10.0-14.5 % Platelet Count 500 H 130-400 10^3/uL Mean Platelet Volume 8.7 L 9.0-12.2 fL Immature Granulocyte % (Auto) 1 % Neutrophils (%) (Auto) 83 H 42-75 % Lymphocytes (%) (Auto) 9 L 12-44 % Monocytes (%) (Auto) 7 0-12 % Eosinophils (%) (Auto) 1 0-10 % Basophils (%) (Auto) 0 0-10 % Neutrophils # (Auto) 11.3 H 1.8-7.8 10^3/uL Lymphocytes # (Auto) 1.2 1.0-4.0 10^3/uL Monocytes # (Auto) 0.9 0.0-1.0 10^3/uL Eosinophils # (Auto) 0.1 0.0-0.3 10^3/uL Basophils # (Auto) 0.0 0.0-0.1 10^3/uL Immature Granulocyte # (Auto) 0.1 0.0-0.1 10^3/uL Prothrombin Time 14.4 12.2-14.7 SEC INR Comment 1.1 0.8-1.4 Activated Partial Thromboplast Time 44 H 24-35 SEC Sodium Level 140 135-145 MMOL/L Potassium Level 5.0 3.6-5.0 MMOL/L Chloride Level 113 H 98-107 MMOL/L Carbon Dioxide Level 7 *L 21-32 MMOL/L Anion Gap 20 H 5-14 MMOL/L Blood Urea Nitrogen 30 H 7-18 MG/DL Creatinine 1.87 H 0.60-1.30 MG/DL Estimat Glomerular Filtration Rate 38 BUN/Creatinine Ratio 16 Glucose Level 498 *H 70-105 MG/DL Calcium Level 10.7 H 8.5-10.1 MG/DL Corrected Calcium 10.5 H 8.5-10.1 MG/DL Phosphorus Level 4.6 2.3-4.7 MG/DL Magnesium Level 2.1 1.6-2.4 MG/DL Total Bilirubin 0.3 0.1-1.0 MG/DL Aspartate Amino Transf (AST/SGOT) 28 5-34 U/L Alanine Aminotransferase (ALT/SGPT) 367 H 0-55 U/L Alkaline Phosphatase 137 H 40-136 U/L Total Protein 8.0 6.4-8.2 GM/DL Albumin 4.3 3.2-4.5 GM/DL Acetaminophen Level < 10 L 10-30 UG/ML Serum Alcohol < 10 <10 MG/DL Beta-Hydroxybutyrate (Chem panel) 7.36 H 0.00-0.27 MMOL/L (CRIS ISAAC MD) Vital Signs/I&O 08/27/22 08/27/22 11:35 14:09 Pulse 111 112 Resp 14 20 B/P (MAP) 111/75 (87) 146/85 Pulse Ox 100 99 08/28/22 00:00 Intake Total 2000 ml Balance 2000 ml (CRIS ISAAC MD) Vital Signs/I&O Capillary Refill : Less Than 3 Seconds (ADINA MCKOY APRN) Blood Pressure Mean: 87 Progress Note #1: Time: 12:13 Progress Note Patient seen and evaluated, resting comfortably bed, no acute distress, weak with slowed speech. Based on exam and symptoms, differential diagnosis includes but not limited to, pneumonia, GI bleed, DKA, UTI. Work-up initiated including CBC, CMP, magnesium, phosphorus, coags, UA, chest x-ray, EKG, alcohol level. IV fluids ordered. Progress Note #2: Time: 13:00 Progress Note Labs and x-ray reviewed. CBC shows elevated WBC 13.6, RBC low 3.63, hemoglobin 12.1, hematocrit low 37 (labs from 08/19: Hemoglobin 9.1, hematocrit 25), MCV elevated 102, platelets elevated 500. CMP shows elevated chloride 113, anion gap elevated 20, CO2 critically low 7, BUN elevated 30, creatinine elevated 1.86, GFR 38 (labs from 08/19: BUN 9, creatinine 0.81, GFR 95), glucose critically high 498, calcium elevated 10.7, alkaline phosphatase elevated 137, ALT 367, AST normal at 28 (labs from 08/19: Alkaline phosphatase 58, AST 19, ALT 11). Alcohol level less than 10. Magnesium level normal at 2.1. Phosphorus normal at 4.6. Beta hydroxybutyrate elevated 7.36. Coags show elevated APTT at 44. Chest x-ray negative for acute cardiopulmonary process. Awaiting ABG and UA result. Results discussed with patient. Informed patient that I recommend admission to the hospital. Patient is hesitant, but agrees to admission. Will go ahead and call Dr. Tapia, hospitalist, for admission. (ADINA MCKOY APRN) ECG Initial ECG Impression Date: Aug 27, 2022 Initial ECG Impression Time: 12:07 Initial ECG Rate: 109 Initial ECG Rhythm: S.Tach Initial ECG Intervals: Normal Initial ECG Comparisson: Changed Comment Subtle ST changes in leads II, and V3. Insignificant new Q wave in lead II, III. Improved ST depression in lead V4, V5. Previously had ST depression in V6, currently does not. (ADINA MCKOY APRN) Departure Communication (Admissions) Time/Spoke to Admitting Phy: 13:10 Dr. Tapia, hospitalist, agrees to admission. She requested Tylenol level and UDS. Pending ABG, will inform her of results when available. Nurse and RT unable to obtain ABG. Dr. Tapia informed. (ADINA MCKOY APRN) Impression Primary Impression: DKA (diabetic ketoacidosis) Additional Impressions: Acute kidney injury Elevated LFTs Disposition: ADMITTED INPATIENT Condition: Critical Admissions Decision to Admit Reason: Admit from ER (General) Decision to Admit/Date: Aug 27, 2022 Time/Decision to Admit Time: 13:10 (ADINA MCKOY APRN) Departure-Patient Inst. Referrals: BAKARI HINSON DO (PCP/Family) Primary Care Physician ATTENDING PHYSICIAN NOTE: I was physically present as attending physician in the emergency department during the care of this patient, but I was not directly involved in the decision making or delivery of care for this patient. (CRIS ISAAC MD) Copy Copies To 2: BAKARI HINSON BRITTANY R APRN Aug 27, 2022 12:11 CRIS ISAAC MD Aug 28, 2022 07:18
[2022-08-27 12:16] LABS: INR 1.1 (0.8-1.4); PROTHROMBIN TIME PATIENT 14.4 SEC (12.2-14.7)
[2022-08-27 12:17] LABS: ALBUMIN 4.3 GM/DL (3.2-4.5); CHLORIDE 113 MMOL/L (98-107); SODIUM 140 MMOL/L (135-145)
[2022-08-27 12:18] LABS: CALCIUM 10.7 MG/DL (8.5-10.1)
[2022-08-27 12:21] LABS: BILIRUBIN,TOTAL 0.3 MG/DL (0.1-1.0); GLUCOSE 498 MG/DL (70-105)
[2022-08-27 12:22] LABS: ALKALINE PHOSPHATASE 137 U/L (40-136); PHOSPHORUS 4.6 MG/DL (2.3-4.7)
[2022-08-27 12:23] LABS: CREATININE SERUM 1.87 MG/DL (0.60-1.30); GFR ESTIMATED 38
[2022-08-27 12:24] LABS: BUN/CREATININE RATIO 16
[2022-08-27 12:26] LABS: ALANINE AMINOTRANSFERASE 367 U/L (0-55)
[2022-08-27 12:27] LABS: CARBON DIOXIDE 7 MMOL/L (21-32)
--- NOTE | 2022-08-27 12:31 | Diagnostic Imaging Report ---
INDICATION: Worsened weakness, recent hospitalization. COMPARISON: Exam is compared with radiograph 10/07/2021. FINDINGS: The lungs are clear. No consolidating pneumonia. No failure pattern, effusion, or pneumothorax. IMPRESSION: No acute appearing abnormality at frontal chest. Dictated by: Dictated on workstation # [id number]
--- NOTE | 2022-08-27 14:12 | History & Physical-Hospitalist ---
CONSTANCE GASTELUM 08/27/22 1412: History of Present Illness HPI/Chief Complaint 67 year old patient with a past medical history of T2DM not currently on insulin and with a recent hospitalization on 08/16 for GI bleed, DKA, and alcohol withdrawal presents to [facility] ER via private vehicle with a chief complaint of fatigue and lethargy that began yesterday morning. Patient states that starting yesterday he has been so tired that he has been unable to get up and do much more than go to the bathroom and smoke a cigarette before laying back down. Also endorses a decreased appetite and lack of fluid intake. Patient denies ever feeling like this before. Patients son was in the room and stated that he doesn't think patient got up more than twice in a 24 hour period yesterday. Patient states that the only medication that he takes for his diabetes is trulicity and that he has not missed a dose. Patient would also like us to know that he has recently switched from ibuprofen to tylenol on account of his ulcer and gi bleed that he recently was hospitalized for (discharged 08/19). He states that he has been taking four 500mg tylenol tablets anywhere from 3-4 times a day. Patient did go through alcohol withdrawal during his last admission and denies any further use of alcohol since discharge. Patient unable to give a detailed past medical history at this time. Is unsure of all medications taken and all conditions treated for. In the ER, patient was found to have a glucose level of 498 with a bicarb of 7 and an anion gap of 20. Beta-hydroxybutyrate level was found to be 7.36. Patient's serum alcohol and APAP were both <10. Awaiting UDS results at time of admission. Source: patient, family (Son in room ) Date Seen 08/27/22 Time Seen by a Provider: 14:00 Attending Physician Roberto Carlos Perez DO PCP Admitting Physician: Attending Physician: Referring Physician Date of Admission Home Medications & Allergies Home Medications Reviewed patient Home Medication Reconciliation performed by pharmacy medication reconciliations injection molding technician and/or nursing. Patients Allergies have been reviewed. Allergies Allergies Coded Allergies No Known Drug Allergies (Ajejkvapff67/5/11) Past Ectwvct-Avsaap-Nkfbwa Hx Patient Social History Tobacco Use?: Yes Tobacco type used: Cigarettes Smoking Status: Current Everyday Smoker (~2 PPD for 50 years ) Substance use?: No Alcohol Use?: No (Denies use since recent hospitalization (DC 08/19/22) Was 1/5th a day before that) Alcohol type: Hard Liquor Pt feels they are or have been: No Immunizations Up To Date Date of Influenza Vaccine: Apr 28, 2021 First/Initial COVID19 Vaccinat: 01/20/2021 Second COVID19 Vaccination Dylan: 02/20/2021 Current Status Advance Directives: No Communicates: Verbally Primary Language: Bruneian Preferred Spoken Language: Bruneian Is interpretation needed?: No Implanted or Applied Medical D: Stents Past Medical History Surgeries: Amputation (L BKA), Orthopedic Currently Using CPAP: No Currently Using BIPAP: No Neuropathy Ulcer Diabetes, Insulin dep Are Your Blood Sugars Over 250: Yes (Not currently taking insulin ) PMHx: IDDM PVD SurgHx: Left foot amputation 1981 Left BKA Inguinal hernia repair Cardiac stent Family Medical History No Pertinent Family Hx Review of Systems Constitutional: malaise, weakness EENTM: No ear pain, No blurred vision, No double vision, No vision loss Respiratory: No cough, No dyspnea on exertion, No short of breath Cardiovascular: No chest pain, No palpitations Gastrointestinal: No abdominal pain, No constipation, No diarrhea Genitourinary: No dysuria, No frequency Musculoskeletal: joint pain (Hip and shoulders) Psychiatric/Neurological: Denies Anxiety, Denies Depressed Physical Exam Physical Exam Vital Signs Vital Signs - First Documented 08/27/22 11:35 Pulse 111 Resp 14 B/P (MAP) 111/75 (87) Pulse Ox 100 Capillary Refill : Less Than 3 Seconds Height, Weight, BMI Height: '" Weight: lbs. oz. kg; 18.00 BMI Method:Estimated General Appearance: Anxious, Mild Distress HEENT: PERRL/EOMI (EOMI); No Photophobia Neck: Full Range of Motion, Non Tender Respiratory: Lungs Clear, Normal Breath Sounds, No Respiratory Distress, Other (Kussmaul respirations after extended talking) Cardiovascular: No Murmur, Tachycardia (Regular rhythm ) Gastrointestinal: Non Tender, Soft Rectal: Deferred Extremity: Non Tender, No Calf Tenderness, No Pedal Edema Neurologic/Psychiatric: Alert, Oriented x3, Depressed Affect (lethargic ) Skin: Warm/Dry, Pallor Results Results/Procedures Labs Laboratory Tests 08/27/22 11:55 Patient resulted labs reviewed. Imaging: Reviewed Imaging Films, Reviewed Imaging Report Assessment/Plan Admission Diagnosis DKA Admission Status: Inpatient Order (span 2 midnights) Reason for Inpatient Admission: DKA Assessment and Plan Diabetic Ketoacidosis - Glucose 498 on admission. Bicarb 7. Anion gap 20. Beta-hydroxybutyrate 7.36. - DKA protocol - Corrected sodium 146. NS at 250cc/hr. When glucose reaches 200 switch to 5% dextrose with 0.45%NS at 150cc/hr. - Potassium 5. 20 MeQ of K+ given w/ each liter of fluid administered. Hold for K+ >5.3. Hold insulin for K+ <3.3. - Given 5.1 unit bolus IV insulin. Then start IV insulin at 5.1 units/hr. Reassess after first hour to determine future insulin rate. If glucose does not drop by at least 50, insulin adjustment will be necessary. - When serum glucose reaches 200, dose IV insulin at 0.02 units/kg/hr to maintain glucose between 150 and 200 until anion gap is closed. - Repeat labs Q2H - If patients pH less than 6.9 will need to give NaHCO3. - Serum alcohol and APAP were negative at this time. - May consider viral testing as possible stressor. Although at this time I believe it to be non-compliance and a change in diet as patient has not been eating much at all in past few days. - Patient will need change in outpatient insulin regimen upon discharge. Hyperlipidemia - Will need home med list to determine which agent patient is on. Hx of Peptic Ulcer Disease Hx of GI Bleed -Discharged on 08/19 after having GI Bleed from chronic NSAID use. -PPI therapy -Continue to monitor Hgb status. Debility/Weakness - PT/OT once gap resolves DVT Prophylaxis: SCDs given patients recent admission for GI Bleed. Critical Care Critically Ill Patient PADMINI TAPIA DO 08/28/22 0500: History of Present Illness Source: patient Assessment/Plan Admission Diagnosis Admission Status: Inpatient Order (span 2 midnights) Reason for Inpatient Admission: dka Supervisory-Addendum Brief Verification & Attestation Participated in pt care: history, MDM, physical Personally performed: exam, history, MDM, supervision of care Care discussed with: Medical Student Procedures: n/a Results interpretation: Verified all documentation Verification and Attestation of Medical Student E/M Service A medical student performed and documented this service in my presence. I reviewed and verified all information documented by the medical student and made modifications to such information, when appropriate. I personally performed the physical exam and medical decision making. Padmini Tapia, Aug 28, 2022,05:00 CONSTANCE GASTELUM Aug 27, 2022 14:12 PADMINI TAPIA DO Aug 28, 2022 05:00
[2022-08-27] MEDS ORDERED: CALCIUM CARBONATE 500 MG (TUMS) TAB.CHEW PO PRN (14:45)
[2022-08-27] MEDS ORDERED: ONDANSETRON 4 MG (ZOFRAN) ORAL DISSOLVE TAB PO PRN (14:45)
[2022-08-27] MEDS ORDERED: ONDANSETRON 4 MG/2 ML (SDV) Z0FRAN IV PRN (14:45)
[2022-08-27] MEDS ORDERED: NS IV 500 ML 500 ML IV PRN (14:45)
[2022-08-27] MEDS ORDERED: LACTULOSE SYRUP 10GM/15ML (ENULOSE) 30ML UDC PO PRN (14:45)
[2022-08-27] MEDS ORDERED: BISACODYL 10 MG SUPP (DULCOLAX) PR PRN (14:45)
[2022-08-27] MEDS ORDERED: POTASSIUM CL 10MEQ/50ML IVPB 50 ML IV SCH (14:45)
[2022-08-27] MEDS ORDERED: diphenhydrAMINE 50 MG/ML INJ (BENADRYL) IVP PRN (14:45)
[2022-08-27] MEDS ORDERED: ANTACID SUSP 30 ML UDC (MYLANTA) PO PRN (14:45)
[2022-08-27] MEDS ORDERED: ENOXAPARIN 40 MG/0.4 ML (LOVENOX) SYR SC SCH (14:45)
[2022-08-27] MEDS ORDERED: diphenhydrAMINE 25 MG TAB (BENADRYL) PO PRN (14:45)
[2022-08-27] MEDS ORDERED: polyethylene glycoL POWDER 17 GM (MIRALAX) PACK PO PRN (14:45)
[2022-08-27] MEDS ORDERED: HYDROmorphone 2 MG/ML VIAL (DILAUDID) IV PRN (14:45)
[2022-08-27] MEDS ORDERED: MILK OF MAGNESIA 400 MG/5 ML 30 ML UDC PO PRN (14:45)
[2022-08-27] MEDS: POTASSIUM CL 10MEQ/50ML IVPB 50 ML IV SCH ×4 (15:13→23:27)
[2022-08-27] MEDS ORDERED: ENOXAPARIN INJECTION 30 MG/0.3 ML SYR SC SCH (15:30)
--- NOTE | 2022-08-27 15:31 | Tele-ICU Consult ---
History of Present Illness History of Present Illness Date Seen by Provider: Aug 27, 2022 Time Seen by Provider: 15:26 Date of Admission (Tele-ICU Physician , consultation as per request of PCP Service provided via interactive audio and video telecommunications E-CARE system to a patient admitted to ICU bed in [facility]. Available chart/ vitals / labs / Images reviewed H&P is from ER notes Patient's information available about PMH, Shx, Fhx allergy reviewed inEMR. ROS as per chart and RN report Now in ICU, hemodynamically stable Video assessment done using teleICU camera, rest of exam as per RN Discussed with RN. Consultants: Hospital course: (08/16) Admitted for GIB due to NSAIDS- - s/p transfusion 2 u prbc - d/c 08/27 - readmit with DKA A/P DKA -Unclear precipitant, No suspicious for new infection, but will check ua *Insulin drip, continue to monitor for resolution of acidosis, AG and electrolytes. Continue hydration. Tx Gastroparesis KAIT with dehydration - hydration ETON - thiamine folate Recent GIB - HB stable , follow - ppi chronic pain LE oral candidiasis - nistatin Lines : PERIPH LINE , (Central Line Necessity Reviewed) Gomez: voiding OG: Nutrition: Analgesia: Anxiety/ delirium VTE Prophylaxis: maureen 40 Stress Ulcer Prophylaxis: ppi Glycemic Control: Plans in collaboration with bedside consultants and IM MDs. Discussed with RN to reach out if any questions or concerns A total of 32 minutes of critical care time was devoted to this patient today, required to treat and/or prevent further deterioration of critical care condition ( as above ) . I am remotely monitoring this patient from another state. I am unable to do the bedside exam, and history/physical and pertinent information is taken from other notes in the computer and bedside staff. . Allergies and Home Medications Allergies Coded Allergies: No Known Drug Allergies (Unverified , 05/02/11) Home Medications Dulaglutide 4.5 Mg/0.5 Ml Pen.injctr, 4.5 MG SQ WED, (Reported) Folic Acid 1 Mg Tablet, 1 MG PO DAILY Prescribed by: CHIP TAPIA on 08/19/22 1140 Gabapentin 600 Mg Tablet, 600 MG PO TID LAST FILLED 07-01-2022 #84/28 DAY SUPPLY Prescribed by: CHIP TAPIA on 08/19/22 1140 Glipizide 2.5 Mg Tab, 2.5 MG PO DAILY, (Reported) Multivitamin/Iron/Folic Acid 18 Mg Iron-400 Mcg Tablet, 1 EA PO DAILY@0700 Prescribed by: CHIP TAPIA on 08/19/22 1140 Pantoprazole Sodium 40 Mg Tablet.dr, 40 MG PO BID Prescribed by: CHIP TAPIA on 08/19/22 1140 Thiamine HCl 100 Mg Tablet, 100 MG PO DAILY@0700 Prescribed by: CHIP TAPIA on 08/19/22 1140 Past Medical/Social/Family Hx Patient Social History Tobacco Use?: Yes Tobacco type used: Cigarettes Smoking Status: Current Everyday Smoker (~2 PPD for 50 years ) Substance use?: No Alcohol Use?: No (Denies use since recent hospitalization (DC 08/19/22) Was 1/5th a day before that) Alcohol type: Hard Liquor Pt stated abuse/neglect: No Immunizations Up To Date Influenza Vaccine Up-to-Date: Yes; Up-to-Date First/Initial COVID19 Vaccinat: 01/20/2021 Second COVID19 Vaccination Dylan: 02/20/2021 Current Status Advance Directives: No Communicates: Verbally Primary Language: Syriac Preferred Spoken Language: Syriac Is interpretation needed?: No Implanted or Applied Medical D: Stents Past Medical History PMHx: IDDM PVD SurgHx: Left foot amputation 1982 Left BKA Inguinal hernia repair Cardiac stent Review of Systems Constitutional: see HPI Focused Exam Height, Weight, BMI Height: '" Weight: lbs. oz. kg; 18.00 BMI Method:Estimated Exam Exam Patient acknowledged, consented, and participated in this virtual visit which was conducted using real time audio/video Vital Signs Date Time Temp Pulse Resp B/P (MAP) Pulse Ox O2 Delivery O2 Flow Rate FiO2 08/27/22 14:09 112 20 146/85 99 08/27/22 11:35 111 14 111/75 (87) 100 Height & Weight Height: '" Weight: lbs. oz. kg; 18.00 BMI Method:Estimated General Appearance: No Apparent Distress, Anxious, Mild Distress HEENT: PERRL/EOMI (EOMI); No Photophobia Neck: Full Range of Motion, Non Tender Respiratory: Lungs Clear, Normal Breath Sounds, No Respiratory Distress, Other (Kussmaul respirations after extended talking) Cardiovascular: No Murmur, Tachycardia (Regular rhythm ) Capillary Refill: Less Than 3 Seconds Extremity: Non Tender, No Calf Tenderness, No Pedal Edema Neurologic/Psychiatric: Alert, Oriented x3, Depressed Affect (lethargic ) Skin: Warm/Dry, Pallor Results Lab Laboratory Tests 08/27/22 11:55 Assessment/Plan Assessment/Plan 1 LAURA PRITCHARD MD Aug 27, 2022 15:31
[2022-08-27 15:32] LABS: POTASSIUM 4.8 MMOL/L (3.6-5.0)
[2022-08-27 15:34] LABS: CALCIUM 9.3 MG/DL (8.5-10.1)
[2022-08-27 15:38] LABS: CREATININE SERUM 1.56 MG/DL (0.60-1.30)
[2022-08-27] MEDS: ACETAMINOPHEN 325 MG TABLET PO PRN (15:48)
[2022-08-27] MEDS: 1/2 NS IV SOLUTION 1,000 ML IV SCH ×3 (16:45→22:45)
[2022-08-27 17:11] LABS: ABG BASE EXCESS -22.7 MMOL/L (-2.5-2.5); ABG OXYGEN SATURATION 99 % (94-100); ABG PO2 107 MMHG (79-93)
[2022-08-27 17:14] LABS: ABG PCO2 16 MMHG (35-45); ABG PH 7.12 (7.37-7.43); ABG TCO2 5.7 MMOL/L (21.0-31.0); ALLENS TEST POSITIVE
[2022-08-27 17:15] LABS: PATIENT TEMP 36.1; VENTILATOR NO
[2022-08-27 17:24] LABS: POTASSIUM 3.5 MMOL/L (3.6-5.0)
[2022-08-27 17:26] LABS: CALCIUM 8.7 MG/DL (8.5-10.1)
[2022-08-27 17:30] LABS: CREATININE SERUM 1.29 MG/DL (0.60-1.30)
[2022-08-27 17:39] LABS: ABG BASE EXCESS -20.6 MMOL/L (-2.5-2.5); ABG OXYGEN SATURATION 72 % (94-100); ABG PCO2 26 MMHG (35-45); ABG PO2 42 MMHG (79-93)
[2022-08-27 17:40] LABS: ABG PH 7.08 (7.37-7.43)
[2022-08-27 17:41] LABS: ABG TCO2 8.2 MMOL/L (21.0-31.0); ALLENS TEST POSITIVE; PATIENT TEMP 37; VENTILATOR NO
[2022-08-27] MEDS: NICOTINE 21 MG (NICODERM) PATCH TD SCH (17:49)
[2022-08-27] MEDS: NYSTATIN ORAL SUSP 5 ML UDC PO SCH ×2 (17:49→23:26)
[2022-08-27 17:50] VITALS: BP 123/69
[2022-08-27] MEDS ORDERED: KCL 20 MEQ TAB (K-DUR) PO NR (18:00)
[2022-08-27] MEDS ORDERED: RT-ALBUTEROL SULF 2.5 MG/3 ML PRE-MIX VIAL INH PRN (18:15)
[2022-08-27 19:52] LABS: BILIRUBIN,URINE 1+ (NEGATIVE); CLARITY,URINE CLEAR; COLOR,URINE YELLOW; GLUCOSE, URINE (UA) 3+ (NEGATIVE); KETONES,URINE 2+ (NEGATIVE); LEUKOCYTE ESTERASE ,URINE NEGATIVE (NEGATIVE); NITRITE,URINE NEGATIVE (NEGATIVE); PROTEIN,URINE 1+ (NEGATIVE)
[2022-08-27 20:03] LABS: BACTERIA,URINE TRACE /HPF; HYALINE CASTS, URINE 0-2 /LPF; SQUAMOUS EPITHELIAL CELL,UR RARE /HPF; WBC,URINE RARE /HPF
[2022-08-27 20:16] LABS: AMPHETAMINE SCREEN, URINE NEGATIVE (NEGATIVE); BARBITURATE SCREEN URINE NEGATIVE (NEGATIVE); BENZODIAZEPINES SCREEN URINE NEGATIVE (NEGATIVE); CANNABINOID SCREEN, URINE NEGATIVE (NEGATIVE); COCAINE SCREEN URINE NEGATIVE (NEGATIVE); METHADONE STAT NEGATIVE (NEGATIVE); OPIATE SCREEN URINE NEGATIVE (NEGATIVE); OXYCODONE STAT NEGATIVE (NEGATIVE); PROPOXYPHENE STAT NEGATIVE (NEGATIVE); TRICYCLIC ANTIDEPRESSANTS SCRE NEGATIVE (NEGATIVE)
[2022-08-27] MEDS: DOCUSATE SODIUM 100 MG (COLACE) CAP PO SCH (20:32)
[2022-08-27] MEDS: SENNOSIDES 8.6 MG (SENOKOT) TAB PO SCH (20:32)
[2022-08-27] MEDS: D5 1/2 NS 1000 ML IV SOLUTION 1,000 ML IV SCH (21:35)
[2022-08-27] MEDS: RT-ALBUTEROL SULF 2.5 MG/3 ML PRE-MIX VIAL INH SCH (21:45)
[2022-08-27 23:16] LABS: CALCIUM 9.1 MG/DL (8.5-10.1); CREATININE SERUM 1.05 MG/DL (0.60-1.30); POTASSIUM 3.9 MMOL/L (3.6-5.0)
[2022-08-28] MEDS: ACETAMINOPHEN 325 MG TABLET PO PRN ×2 (00:31→04:45)
[2022-08-28] MEDS: POTASSIUM CL 10MEQ/50ML IVPB 50 ML IV SCH ×9 (01:30→23:51)
[2022-08-28] MEDS: D5 1/2 NS 1000 ML IV SOLUTION 1,000 ML IV SCH ×6 (01:30→21:51)
[2022-08-28] MEDS: 1/2 NS IV SOLUTION 1,000 ML IV SCH ×6 (02:45→23:13)
[2022-08-28 04:22] LABS: BASOPHILS % (AUTO) 0 % (0-10); EOSINOPHILS # (AUTO) 0.2 10^3/uL (0.0-0.3); EOSINOPHILS % (AUTO) 2 % (0-10); HEMATOCRIT 26 % (40-54); HEMOGLOBIN 8.5 g/dL (13.3-17.7); LYMPHOCYTES # (AUTO) 1.3 10^3/uL (1.0-4.0); LYMPHOCYTES % (AUTO) 15 % (12-44); MEAN CORPUSCULAR HEMOGLOBIN 33 pg (25-34); MEAN CORPUSCULAR HGB CONC 33 g/dL (32-36); MEAN CORPUSCULAR VOLUME 99 fL (80-99); MEAN PLATELET VOLUME 8.8 fL (9.0-12.2); MONOCYTES # (AUTO) 0.5 10^3/uL (0.0-1.0); MONOCYTES % (AUTO) 6 % (0-12); NEUTROPHILS # (AUTO) 6.6 10^3/uL (1.8-7.8); NEUTROPHILS % (AUTO) 77 % (42-75); PLATELET COUNT 318 10^3/uL (130-400); WHITE BLOOD COUNT 8.6 10^3/uL (4.3-11.0)
[2022-08-28 04:38] LABS: BILIRUBIN,TOTAL 0.4 MG/DL (0.1-1.0); CALCIUM 8.6 MG/DL (8.5-10.1); CREATININE SERUM 0.86 MG/DL (0.60-1.30); MAGNESIUM 1.4 MG/DL (1.6-2.4); POTASSIUM 3.4 MMOL/L (3.6-5.0); TOTAL PROTEIN 5.6 GM/DL (6.4-8.2)
[2022-08-28 05:23] LABS: PHOSPHORUS 0.8 MG/DL (2.3-4.7)
[2022-08-28] MEDS: MAGNESIUM 1 GM/100 ML IVPB 100 ML IV SCH ×6 (05:43→11:13)
[2022-08-28] MEDS: KCL 20 MEQ TAB (K-DUR) PO SCH (05:43)
--- NOTE | 2022-08-28 06:11 | Diagnostic Imaging Report ---
INDICATION: Dyspnea. Comparison is made with prior exam of 08/27/2022. FINDINGS: The heart size is upper limits of normal. There is some left basilar atelectasis and/or pneumonitis. There is no pleural effusion or pneumothorax. The mediastinum is unremarkable. IMPRESSION: Mild cardiomegaly with some left basilar atelectasis and/or pneumonitis. Dictated by: Dictated on workstation # [id number]
[2022-08-28] MEDS: NYSTATIN ORAL SUSP 5 ML UDC PO SCH ×3 (06:22→17:46)
[2022-08-28] MEDS: THIAMINE 100 MG (VITAMIN B-1) TAB PO SCH (06:22)
[2022-08-28 06:39] LABS: POTASSIUM 3.4 MMOL/L (3.6-5.0)
[2022-08-28 06:40] LABS: CALCIUM 8.5 MG/DL (8.5-10.1)
[2022-08-28 06:45] LABS: CREATININE SERUM 0.81 MG/DL (0.60-1.30)
[2022-08-28] MEDS ORDERED: CATHETER FLUSH 10 ML SYR IVP PRN (07:45)
[2022-08-28] MEDS: RT-ALBUTEROL SULF 2.5 MG/3 ML PRE-MIX VIAL INH SCH ×2 (07:50→19:52)
[2022-08-28] MEDS ORDERED: POTASSIUM PHOSPHATE INJ 30 MM in NS (IVPB) 250 ML IV ONE (08:00)
[2022-08-28] MEDS ORDERED: NICOTINE 21 MG (NICODERM) PATCH TD SCH (09:00)
[2022-08-28 09:29] LABS: CALCIUM 8.8 MG/DL (8.5-10.1); CREATININE SERUM 0.76 MG/DL (0.60-1.30); POTASSIUM 3.4 MMOL/L (3.6-5.0)
--- NOTE | 2022-08-28 09:33 | Progress Note - Hospitalist ---
DIEUDONNEJACQUELIN Marla 08/28/22 0932: Subjective HPI/CC On Admission Date Seen by Provider: Aug 28, 2022 Time Seen by Provider: 08:30 67 year old patient with a past medical history of T2DM not currently on insulin and with a recent hospitalization on 08/16 for GI bleed, DKA, and alcohol withdrawal presents to [facility] ER via private vehicle with a chief complaint of fatigue and lethargy that began yesterday morning. Patient states that starting yesterday he has been so tired that he has been unable to get up and do much more than go to the bathroom and smoke a cigarette before laying back down. Also endorses a decreased appetite and lack of fluid intake. Patient denies ever feeling like this before. Patients son was in the room and stated that he doesn't think patient got up more than twice in a 24 hour period yesterday. Deanna ent states that the only medication that he takes for his diabetes is trulicity and that he has not missed a dose. Patient would also like us to know that he has recently switched from ibuprofen to tylenol on account of his ulcer and gi bleed that he recently was hospitalized for (discharged 08/19). He states that he has been taking four 500mg tylenol tablets anywhere from 3-4 times a day. Patient did go through alcohol withdrawal during his last admission and denies any further use of alcohol since discharge. Patient unable to give a detailed past medical history at this time. Is unsure of all medications taken and all conditions treated for. In the ER, patient was found to have a glucose level of 498 with a bicarb of 7 and an anion gap of 20. Beta-hydroxybutyrate level was found to be 7.36. Patient's serum alcohol and APAP were both <10. Awaiting UDS results at time of admission. Subjective/Events-last exam Pt seen at bedside this AM. His daughter is with him. He is sitting up on edge of bed eating breakfast. He says he is feeling better. He says he has pain in his amputation site like always. He reports that on his last admission he "infected his eyes" and they are itchy and goopy and is requesting eye drops as they have not gotten better despite OTC eye drops he had tried between admissions. He has had no BMs yet but is urinating copiously. Objective Exam Vital Signs Vital Signs Date Time Temp Pulse Resp B/P (MAP) Pulse Ox O2 Delivery O2 Flow Rate FiO2 08/28/22 13:00 73 125/81 (103) 100 Room Air 08/28/22 08:00 36.2 08/27/22 21:00 08/27/22 17:50 21 Capillary Refill : Less Than 3 Seconds General Appearance: No Apparent Distress, Thin HEENT: PERRL/EOMI, Moist Mucous Membranes, Other (Left eye has some slightly pu rulent discharge. Sclera/conjunctivae appear normal. Left eyelid is slightly edematous. Right eye has some more clear discharge but overall less impressive than left. ) Neck: Full Range of Motion, Supple Respiratory: Lungs Clear, Normal Breath Sounds Cardiovascular: Regular Rate, Rhythm, No Edema, Normal Peripheral Pulses Gastrointestinal: Normal Bowel Sounds, Non Tender, Soft Rectal: Deferred Back: Normal Inspection Extremity: No Pedal Edema, Other (Left lower extremity absent below the knee. ) Neurologic/Psychiatric: Oriented x3 Skin: Normal Color, Warm/Dry Results/Procedures Lab Laboratory Tests 08/27/22 15:15 08/27/22 17:05 08/27/22 22:46 08/28/22 04:02 08/28/22 08:58 08/28/22 12:00 Patient resulted labs reviewed. Imaging: Reviewed Imaging Films, Reviewed Imaging Report Radiology NAME: ARASH BARILLAS [facility] REC#: [id number] PT STATUS: ADM IN : 1955 PHYSICIAN: CHIP TAPIA DO ADMIT DATE: 08/27/22/ICU Signed Date of Exam:08/28/22 CHEST 1 VIEW, AP/PA ONLY INDICATION: Dyspnea. Comparison is made with prior exam of 08/27/2022. FINDINGS: The heart size is upper limits of normal. There is some left basilar atelectasis and/or pneumonitis. There is no pleural effusion or pneumothorax. The mediastinum is unremarkable. IMPRESSION: Mild cardiomegaly with some left basilar atelectasis and/or pneumonitis. Dictated by: Dictated on workstation # [id number] Dict: 08/28/22 0606 Trans: 08/28/22 0819 RADHA [id number] Interpreted by: GLENNA MATTHEWS MD Electronically signed by: GLENNA MATTHEWS MD 08/28/22 0819 Assessment/Plan Assessment and Plan Assess & Plan/Chief Complaint Assessment: This is a 67 y/o male who presented to the ED for DKA now on hospital day 1. Plan Diabetic Ketoacidosis - Glucose 498 on admission. Bicarb 7. Anion gap 20. Beta-hydroxybutyrate 7.36 --> Bicarb 10, Glucose 110 at last, GAP of 10. B-hydroxybutyrate 0.04. - DKA protocol - Corrected sodium 146. NS at 250cc/hr. Glucose <200 now. Anion Gap closed (7 at 0400). - Potassium 5. 20 MeQ of K+ given w/ each liter of fluid administered. Hold for K+ >5.3. Hold insulin for K+ <3.3. - Insulin titrated to 3.5 u/hr. -Pt tolerating normal diet now. -Serum alcohol and APAP were negative at this time. -Thiamine and folate administered given pt's report of high amounts of alcohol. -UA negative for infectious; possible pneumonitis vs atelectasis on CXR but no symptoms; infection unlikely to be predisposing to DKA -Likely non-compliance and diet change to cause DKA. Will need close follow- up to tailor outpatient DM therapy. -Cont IV insulin since Bicarb is only 10. Will await for further normalization before DCing from ICU Reported Alcohol use disorder -UDS negative for alcohol or other substances at this time -Thiamine/folate given -No withdrawal symptoms reported at this time. Hyperlipidemia - Will need home med list to determine which agent patient is on. Hx of Peptic Ulcer Disease Hx of GI Bleed -Dr. Carroll consulted and managing; appreciate recs -Discharged on 08/19 after having GI Bleed from chronic NSAID use. -PPI therapy -Pathology notes pattern c/w H. pylori but no growth possibly d/t chronic PPI use. -Hgb stable, small drop likely dilutional given amount of fluid resuscitation given. -Triple therapy with amoxicillin, metronidazole, and protonix initiated 3/3 -Peptic ulcer + diabetic diet. Debility/Weakness - PT/OT consult. DVT Prophylaxis: SCDs given patients recent admission for GI Bleed. CHIP TAPIA DO 08/29/22 5560: Supervisory-Addendum Brief Verification & Attestation Participated in pt care: history, MDM, physical Personally performed: exam, history, MDM, supervision of care Care discussed with: Medical Student Procedures: n/a Results interpretation: Verified all documentation Verification and Attestation of Medical Student E/M Service A medical student performed and documented this service in my presence. I reviewed and verified all information documented by the medical student and made modifications to such information, when appropriate. I personally performed the physical exam and medical decision making. Chip Tapia, Aug 29, 2022,05:36 JACQUELIN BRO Aug 28, 2022 09:32 CHIP TAPIA DO Aug 29, 2022 05:36
[2022-08-28] MEDS: DOCUSATE SODIUM 100 MG (COLACE) CAP PO SCH ×2 (09:50→21:20)
[2022-08-28] MEDS: NICOTINE 21 MG (NICODERM) PATCH TD SCH (09:50)
[2022-08-28] MEDS: SENNOSIDES 8.6 MG (SENOKOT) TAB PO SCH ×2 (09:50→21:20)
[2022-08-28] MEDS: PANTOPRAZOLE 40 MG (PROTONIX) TAB PO SCH (09:52)
[2022-08-28] MEDS: NICOTINE PATCH REMOVAL TP SCH (09:53)
[2022-08-28] MEDS ORDERED: GBPN600T PO (10:14)
[2022-08-28] MEDS ORDERED: FOLI1TAB33 PO (10:14)
[2022-08-28] MEDS ORDERED: MULT-1137 PO (10:14)
[2022-08-28] MEDS ORDERED: THIA100T66 PO (10:14)
[2022-08-28] MEDS ORDERED: ACET-2267 PO (10:14)
[2022-08-28] MEDS ORDERED: PANT40TA52 PO (10:14)
[2022-08-28] MEDS ORDERED: SUCR1TAB PO (10:14)
[2022-08-28] MEDS ORDERED: ARTIFICAL TEARS 0.4 ML UNIT DOSE (REFRESH PLUS) OD PRN (10:45)
--- NOTE | 2022-08-28 11:05 | Tele-ICU Progress Note ---
Subjective Date Seen by a Provider: Aug 28, 2022 Time Seen by a Provider: 11:04 Subjective/Events-last exam (Tele-ICU Physician , Progress Note ) Service provided via interactive audio and video telecommunications E-CARE system to a patient admitted to ICU bed in [facility]. Patient is seen today due to persistent need of ICU care Available chart/ vitals / labs / Images reviewed Video assessment done using teleICU camera, rest of exam as per RN Discussed with RN Events overnight : Afebrile hemodynamically stable Respiratory - I/O = Drips: Pressors- no Consultants: Hospital course: (08/16) Admitted for GIB due to NSAIDS- - s/p transfusion 2 u prbc - d/c 08/27 - readmit with DKA A/P DKA -Unclear precipitant, No suspicious for new infection, but will check ua -Insulin drip, continue to monitor for resolution of acidosis, AG and electrolytes. Continue hydration. Tx Gastroparesis KAIT with dehydration - resoved with hydration ETON - thiamine folate NAGMA - ? etiology , ETON ? - will chech b-g-b and decide on insulin gtt Recent GIB - HB drop delutiona; - ppi chronic pain LE - on tylenol no w, avoid oral candidiasis - nistatin Lines : PERIPH LINE , (Central Line Necessity Reviewed) Gomez: voiding OG: Nutrition: Analgesia: Anxiety/ delirium VTE Prophylaxis: maureen 40 Stress Ulcer Prophylaxis: ppi Glycemic Control: Plans in collaboration with bedside consultants and IM MDs. Discussed with RN to reach out if any questions or concerns A total of 32 minutes of critical care time was devoted to this patient today, required to treat and/or prevent further deterioration of critical care condition ( as above ) . I am remotely monitoring this patient from another state. I am unable to do the bedside exam, and history/physical and pertinent information is taken from other notes in the computer and bedside staff. Sepsis Event Evaluation Height, Weight, BMI Height: '" Weight: lbs. oz. kg; 20.07 BMI Method:Estimated Exam Exam Patient acknowledged, consented, and participated in this virtual visit which was conducted using real time audio/video Vital Signs Date Time Temp Pulse Resp B/P (MAP) Pulse Ox O2 Delivery O2 Flow Rate FiO2 08/28/22 10:00 74 103/63 (81) 100 Room Air 08/28/22 09:00 74 111/76 (88) 100 Room Air 08/28/22 08:00 74 116/92 (100) 100 Room Air 08/28/22 08:00 100 Room Air 08/28/22 08:00 36.2 08/28/22 07:55 100 Room Air 08/28/22 07:00 68 08/28/22 07:00 69 95/64 (70) 99 Room Air 08/28/22 06:00 74 12/64 (47) 100 Room Air 08/28/22 05:00 78 101/71 (81) 100 Room Air 08/28/22 04:00 79 123/81 (95) 100 Room Air 08/28/22 04:00 100 Room Air 08/28/22 03:34 36.2 08/28/22 03:00 75 119/43 (68) 99 Room Air 08/28/22 02:00 76 107/65 (79) 100 Room Air 08/28/22 01:00 87 105/66 (79) 100 Room Air 08/28/22 01:00 90 08/28/22 00:00 84 118/69 (85) 100 Room Air 08/27/22 23:59 100 Room Air 08/27/22 23:49 36.3 08/27/22 23:00 79 115/73 (87) 100 Room Air 08/27/22 22:00 80 113/68 (83) 100 Room Air 08/27/22 21:45 100 Room Air 08/27/22 21:00 75 110/67 (81) 100 Room Air 08/27/22 20:00 80 115/70 (85) 100 Room Air 08/27/22 20:00 100 Room Air 08/27/22 19:00 94 08/27/22 19:00 92 99/66 (77) 100 Room Air 08/27/22 18:00 106/80 (89) 100 Room Air 08/27/22 17:50 102 100 21 08/27/22 17:00 106/69 (81) 100 Room Air 08/27/22 16:00 105 116/69 (85) 100 Room Air 08/27/22 16:00 97 Room Air 08/27/22 15:00 102 123/69 (87) 100 Room Air 08/27/22 14:40 98 Room Air 08/27/22 14:09 112 20 146/85 99 08/27/22 11:35 111 14 111/75 (87) 100 I & O 08/28/22 07:00 Intake Total 7360 ml Output Total 2050 ml Balance 5310 ml Height & Weight Height: '" Weight: lbs. oz. kg; 20.07 BMI Method:Estimated General Appearance: No Apparent Distress, Thin HEENT: PERRL/EOMI, Moist Mucous Membranes, Other (Left eye has some slightly purulent discharge. Sclera/conjunctivae appear normal. Left eyelid is slightly edematous. Right eye has some more clear discharge but overall less impressive than left. ) Neck: Full Range of Motion, Supple Respiratory: Lungs Clear, Normal Breath Sounds Cardiovascular: Regular Rate, Rhythm, No Edema, Normal Peripheral Pulses Capillary Refill: Less Than 3 Seconds Extremity: No Pedal Edema, Other (Left lower extremity absent below the knee. ) Neurologic/Psychiatric: Oriented x3 Skin: Normal Color, Warm/Dry Results Lab Laboratory Tests 08/27/22 11:55 08/27/22 15:15 08/27/22 17:05 08/27/22 22:46 08/28/22 04:02 08/28/22 08:58 Assessment/Plan Assessment/Plan 1 LAURA PRITCHARD MD Aug 28, 2022 11:05
[2022-08-28] MEDS ORDERED: DexMEDEtomidine 250 ML DRIP 250 ML IV SCH (11:15)
[2022-08-28 12:24] LABS: POTASSIUM 3.4 MMOL/L (3.6-5.0)
--- NOTE | 2022-08-28 12:28 | CONSULTATION REPORT ---
DATE OF SERVICE: 08/28/2022 ADMITTING PHYSICIAN: Padmini Lemons DO ATTENDING PRIMARY CARE PHYSICIAN: Dr. Roberto Carlos Perez. HISTORY OF PRESENT ILLNESS: The patient is a 67-year-old male known to us. He has a significant past medical history including diabetes as well as medical noncompliance and has had a previous left below-knee amputation as well as diabetic ulcerations. He was recently hospitalized on 08/16/2022 for anemia and gastrointestinal bleed and on admission, he underwent an EGD and was found to have 3 smaller type 3 prepyloric ulcers. These had overlying fibrin clot and no active bleed. Biopsies were taken, which did come back positive for Helicobacter pylori. This was just recent and since his admission for diabetic ketoacidosis. We will start him on antibiotic therapy for 2 weeks on a b.i.d. 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 He is clinically not having any gastrointestinal bleed at this time and his hemoglobin appears to be stable. PAST MEDICAL HISTORY: Insulin-dependent diabetes, neuropathy, peripheral vascular disease, coronary artery disease. PAST SURGICAL HISTORY: Left foot amputation 80, left below-knee amputation, inguinal hernia repair, cardiac catheterization and stent placement. ALLERGIES: No known drug allergies. MEDICATIONS: Dulaglutide 4.5 mg weekly, folic acid 1 mg daily, gabapentin 600 mg t.i.d., glipizide 2.5 mg daily, Protonix 40 mg b.i.d., Carafate 1 gram q.i.d., thiamine 100 mg daily. SOCIAL HISTORY: Positive smoke 2 packs a day for 50 years. Does have a history of alcohol abuse as well. FAMILY HISTORY: Noncontributory. VITAL SIGNS: Temperature 36.2, blood pressure 105/65, pulse 83, respirations 14, pulse ox 92% on room air. REVIEW OF SYSTEMS: Well-nourished male. Currently confused; however, does not appear to be in acute distress. He does not appear to be having any shortness of breath or tachypnea or using accessory muscles of respiration. No known chest pain, palpitations, diaphoresis. No nausea, vomiting. No hematemesis, no coffee-ground emesis, no known red blood per rectum, nor any dark tarry stools. No known fever or chills as well as frequent inadvertent weight loss. PHYSICAL EXAM: CHEST: Scattered wheezes and rhonchi bilaterally. HEART: Regular. No murmurs. EXTREMITIES: No lower extremity edema. Negative Homans sign. HEENT: No scleral icterus. No cervical lymphadenopathy. GASTROINTESTINAL: Abdomen is soft, nontender, nondistended. SKIN: Warm, dry. LABORATORY DATA: WBC 8.6, hemoglobin 8.5, hematocrit 26, platelets 318. BUN 13, creatinine 0.76, blood sugar 163. ASSESSMENT AND PLAN: A 67-year-old male admitted for diabetic ketoacidosis. He also has a known history of peptic ulcer disease with recent findings of 3 small prepyloric ulcers on EGD with overlying fibrin clot and no active bleed. Biopsies were also positive for Helicobacter pylori, which has been untreated at this point. Our recommendation is to proceed with a bland peptic ulcer disease diet as well as a diabetic diet for his diabetic ketoacidosis. We will also start him on his regimen for Helicobacter pylori, which we will start amoxicillin 500 mg b.i.d., metronidazole 500 mg b.i.d. as well as Protonix 40 mg b.i.d. and have him continue the Protonix on a b.i.d. basis for at least 3 months. Once he is clinically stable and discharged, he will need followup endoscopy in approximately 8 weeks to rebiopsy for the Helicobacter pylori eradication as well as healing of the type 3 prepyloric ulcers. Job ID: [id number] DocumentID: [id number] Dictated Date: 08/28/2022 12:06:07 Wind Energy Technician Date: 08/28/2022 12:26:00 Dictated By: BLADIMIR DAVIDSON MD
[2022-08-28 12:30] LABS: CREATININE SERUM 0.66 MG/DL (0.60-1.30)
[2022-08-28] MEDS ORDERED: ENOXAPARIN 40 MG/0.4 ML (LOVENOX) SYR SC SCH (16:00)
[2022-08-28 21:14] LABS: CALCIUM 7.7 MG/DL (8.5-10.1); CREATININE SERUM 0.67 MG/DL (0.60-1.30)
[2022-08-28] MEDS ORDERED: POTASSIUM CL 10MEQ/50ML IVPB 200 ML IV ONE (21:46)
[2022-08-29] MEDS: NYSTATIN ORAL SUSP 5 ML UDC PO SCH ×4 (00:57→18:03)
[2022-08-29] MEDS: 1/2 NS IV SOLUTION 1,000 ML IV SCH ×3 (02:45→11:33)
[2022-08-29] MEDS: POTASSIUM CL 10MEQ/50ML IVPB 50 ML IV SCH ×4 (03:10→07:26)
[2022-08-29] MEDS: D5 1/2 NS 1000 ML IV SOLUTION 1,000 ML IV SCH ×2 (04:31→08:19)
[2022-08-29 04:42] LABS: BASOPHILS % (AUTO) 0 % (0-10); EOSINOPHILS # (AUTO) 0.2 10^3/uL (0.0-0.3); EOSINOPHILS % (AUTO) 2 % (0-10); HEMATOCRIT 25 % (40-54); HEMOGLOBIN 8.7 g/dL (13.3-17.7); LYMPHOCYTES # (AUTO) 0.7 10^3/uL (1.0-4.0); LYMPHOCYTES % (AUTO) 6 % (12-44); MEAN CORPUSCULAR HEMOGLOBIN 33 pg (25-34); MEAN CORPUSCULAR HGB CONC 34 g/dL (32-36); MEAN CORPUSCULAR VOLUME 95 fL (80-99); MEAN PLATELET VOLUME 9.2 fL (9.0-12.2); MONOCYTES # (AUTO) 0.8 10^3/uL (0.0-1.0); MONOCYTES % (AUTO) 6 % (0-12); NEUTROPHILS # (AUTO) 10.8 10^3/uL (1.8-7.8); NEUTROPHILS % (AUTO) 85 % (42-75); PLATELET COUNT 341 10^3/uL (130-400); WHITE BLOOD COUNT 12.6 10^3/uL (4.3-11.0)
[2022-08-29 05:12] LABS: ALBUMIN 3.1 GM/DL (3.2-4.5); BILIRUBIN,TOTAL 0.4 MG/DL (0.1-1.0); CALCIUM 7.9 MG/DL (8.5-10.1); CREATININE SERUM 0.63 MG/DL (0.60-1.30); MAGNESIUM 1.5 MG/DL (1.6-2.4); PHOSPHORUS 1.4 MG/DL (2.3-4.7); POTASSIUM 3.2 MMOL/L (3.6-5.0); TOTAL PROTEIN 5.9 GM/DL (6.4-8.2)
[2022-08-29 05:22] LABS: EOSINOPHILS % (MANUAL) 3 %; LYMPHOCYTES % (MANUAL) 11 %; MONOCYTES % (MANUAL) 6 %; NEUTROPHILS % (MANUAL) 80 %
[2022-08-29 05:23] LABS: PLATELET CLUMPS RARE SMALL CLUMPS
[2022-08-29] MEDS ORDERED: MAGNESIUM 1 GM/100 ML IVPB 200 ML IV ONE (06:16)
[2022-08-29] MEDS: MAGNESIUM 1 GM/100 ML IVPB 100 ML IV SCH ×5 (06:18→08:23)
[2022-08-29 06:52] LABS: ABG BASE EXCESS -13.7 MMOL/L (-2.5-2.5); ABG OXYGEN SATURATION 99 % (94-100); ABG PCO2 24 MMHG (35-45); ABG PO2 92 MMHG (79-93); ABG TCO2 12.2 MMOL/L (21.0-31.0)
[2022-08-29] MEDS: KCL 20 MEQ TAB (K-DUR) PO SCH (06:54)
[2022-08-29 06:56] LABS: ABG PH 7.31 (7.37-7.43)
[2022-08-29 06:57] LABS: ALLENS TEST 1 YES; PATIENT TEMP 36.7; VENTILATOR NO
--- NOTE | 2022-08-29 07:27 | Diagnostic Imaging Report ---
EXAMINATION: Chest 1 view HISTORY: Short of breath COMPARISON: 08/28/2022 FINDINGS: The lungs are clear without edema or pneumonia. No pleural effusion or pneumothorax. Heart size is normal. IMPRESSION: 1. Clear lungs. Dictated by: Dictated on workstation # [id number]
--- NOTE | 2022-08-29 07:35 | Progress Note - Hospitalist ---
Subjective HPI/CC On Admission Date Seen by Provider: Aug 29, 2022 Time Seen by Provider: 11:00 67 year old patient with a past medical history of T2DM not currently on insulin and with a recent hospitalization on 08/16 for GI bleed, DKA, and alcohol withdrawal presents to [facility] ER via private vehicle with a chief complaint of fatigue and lethargy that began yesterday morning. Patient states that starting yesterday he has been so tired that he has been unable to get up and do much more than go to the bathroom and smoke a cigarette before laying back down. Also endorses a decreased appetite and lack of fluid intake. Patient denies ever feeling like this before. Patients son was in the room and stated that he doesn't think patient got up more than twice in a 24 hour period yesterday. Patient states that the only medication that he takes for his diabetes is trulicity and that he has not missed a dose. Patient would also like us to know that he has recently switched from ibuprofen to tylenol on account of his ulcer and gi bleed that he recently was hospitalized for (discharged 08/19). He states that he has been taking four 500mg tylenol tablets anywhere from 3-4 times a day. Patient did go through alcohol withdrawal during his last admission and denies any further use of alcohol since discharge. Patient unable to give a detailed past medical history at this time. Is unsure of all medications taken and all conditions treated for. In the ER, patient was found to have a glucose level of 498 with a bicarb of 7 and an anion gap of 20. Beta-hydroxybutyrate level was found to be 7.36. Patient's serum alcohol and APAP were both <10. Awaiting UDS results at time of admission. Subjective/Events-last exam Much improved Moving to 4th today Sugars are variable Metabolic acidosis noted Sodium bicarb ordered Review of Systems General: Fatigue, Malaise Objective Exam Vital Signs Vital Signs Date Time Temp Pulse Resp B/P (MAP) Pulse Ox O2 Delivery O2 Flow Rate FiO2 08/30/22 03:53 36.9 89 16 113/67 (82) 98 Room Air 08/29/22 07:44 0.00 08/27/22 17:50 21 Capillary Refill : Less Than 3 Seconds General Appearance: No Apparent Distress, WD/WN, Chronically ill, Thin Respiratory: Lungs Clear, Normal Breath Sounds Cardiovascular: Regular Rate, Rhythm Neurologic/Psychiatric: Alert, Oriented x3, No Motor/Sensory Deficits, Normal Mood/Affect Results/Procedures Lab Laboratory Tests 08/30/22 04:43 Patient resulted labs reviewed. Imaging: Reviewed Imaging Films, Reviewed Imaging Report Assessment/Plan Assessment and Plan Assess & Plan/Chief Complaint Diabetic Ketoacidosis - Glucose 498 on admission. Bicarb 7. Anion gap 20. Beta-hydroxybutyrate 7.36. - DKA protocol - Corrected sodium 146. NS at 250cc/hr. When glucose reaches 200 switch to 5% dextrose with 0.45%NS at 150cc/hr. - Potassium 5. 20 MeQ of K+ given w/ each liter of fluid administered. Hold for K+ >5.3. Hold insulin for K+ <3.3. - Given 5.1 unit bolus IV insulin. Then start IV insulin at 5.1 units/hr. Reassess after first hour to determine future insulin rate. If glucose does not drop by at least 50, insulin adjustment will be necessary. - When serum glucose reaches 200, dose IV insulin at 0.02 units/kg/hr to maintain glucose between 150 and 200 until anion gap is closed. - Repeat labs Q2H - If patients pH less than 6.9 will need to give NaHCO3. - Serum alcohol and APAP were negative at this time. - May consider viral testing as possible stressor. Although at this time I believe it to be non-compliance and a change in diet as patient has not been eating much at all in past few days. - Patient will need change in outpatient insulin regimen upon discharge. Hyperlipidemia - Will need home med list to determine which agent patient is on. Hx of Peptic Ulcer Disease Hx of GI Bleed -Discharged on 08/19 after having GI Bleed from chronic NSAID use. -PPI therapy -Continue to monitor Hgb status. Debility/Weakness - PT/OT once gap resolves DVT Prophylaxis: SCDs given patients recent admission for GI Bleed. Critical Care Critically Ill Patient CHIP TAPIA DO Aug 29, 2022 07:35
[2022-08-29] MEDS: RT-ALBUTEROL SULF 2.5 MG/3 ML PRE-MIX VIAL INH SCH ×2 (07:44→23:42)
[2022-08-29] MEDS ORDERED: POTASSIUM PHOSPHATE INJ 30 MM in NS (IVPB) 250 ML IV ONE ×2 (07:45→08:00)
[2022-08-29] MEDS: SODIUM BICARBONATE 650 MG TABLET PO SCH ×4 (08:20→20:56)
[2022-08-29] MEDS: NICOTINE 21 MG (NICODERM) PATCH TD SCH (08:20)
[2022-08-29] MEDS: DOCUSATE SODIUM 100 MG (COLACE) CAP PO SCH ×2 (08:20→20:56)
[2022-08-29] MEDS: PANTOPRAZOLE 40 MG (PROTONIX) TAB PO SCH (08:20)
[2022-08-29] MEDS: THIAMINE 100 MG (VITAMIN B-1) TAB PO SCH (08:20)
[2022-08-29] MEDS: SENNOSIDES 8.6 MG (SENOKOT) TAB PO SCH ×2 (08:20→20:56)
[2022-08-29] MEDS: NICOTINE PATCH REMOVAL TP SCH (08:21)
[2022-08-29] MEDS ORDERED: NON-FORMULARY MEDICATION 1 EA EA (Dulaglutide (Trulicity) 4.5 MG) SQ SCH (11:45)
[2022-08-29] MEDS ORDERED: ACETAMINOPHEN 500 MG TAB (TYLENOL) PO PRN (11:45)
[2022-08-29] MEDS: GABAPENTIN 600 MG (NEURONTIN) TAB PO SCH ×2 (13:12→20:56)
[2022-08-29 13:50] VITALS: BP 90/54
[2022-08-29] MEDS: ACETAMINOPHEN 325 MG TABLET PO PRN ×2 (14:11→21:32)
--- NOTE | 2022-08-29 15:20 | Physical Therapy Evaluation ---
PT Evaluation-General Medical Diagnosis Admission Date Aug 27, 2022 at 14:18 Medical Diagnosis: acute kidney inj Onset Date: Aug 27, 2022 Therapy Diagnosis Therapy Diagnosis: limited mobility Precautions Precautions/Isolations: Fall Prevention, Standard Precautions Weight Bear Status Right Lower Extremity: Right Full Weight Bearing Referral Physician: Padmini Lemons DO Reason for Referral: Evaluation/Treatment Medical History Pertinent Medical History: COPD, DM, PVD Additional Medical History (L) BKA, GI bleed, etoh withdrawl, cardiac stent Current History Admit due to acute kidney issues. Reviewed History: Yes Social History Home: Single Level Current Living Status: Significant Other Entry Into Home: Ramp Prior Prior Level of Function SCALE: Activities may be completed with or without assistive devices. 2-Nwxirlnglg-zutahff completes the activity by him/herself with no assistance from a helper. 5-Set-up or Clean-up Assistance-helper sets up or cleans up; patient completes activity. [place] assists only prior to or following the activity. 4-Supervision or Touching Assistance-helper provides verbal cues and/or touching/steadying and/or contact guard assistance as patient completes activity. Assistance may be provided throughout the activity or intermittently. 3-Partial/Moderate Assistance-helper does LESS THAN HALF the effort. [place] lifts, holds or supports trunk or limbs, but provides less than half the effort. 2-Substantial/Maximal Assistance-helper does MORE THAN HALF the effort. [place] lifts or holds trunk or limbs and provides more than half the effort. 7-Ecwffepsp-tjwvhx does ALL the effort. Patient does none of the effort to complete the activity. Or, the assistance of 2 or more helpers is required for the patient to complete the activity. If activity was not attempted, code reason: 7-Patient Refused. 9-Not Applicable-not attempted and the patient did not perform the activity before the current illness, exacerbation or injury. 10-Not Attempted due to Environmental Limitations-(lack of equipment, weather restraints, etc.). 88-Not Attempted due to Medical Conditions or Safety Concerns. Bed Mobility: 6 Transfers (B,C,W/C): 6 Gait: 9 Stairs: 9 Wheelchair Mobility: 6 Indoor Mobility (Ambulation): Not [place] Stairs: Not [place] Prior Devices Use: Manual wheelchair PT Evaluation-Current Subjective Pt reports that he is fatiguing quickly, resulting in multiple near falls during transfers. Pain Numeric Pain Scale: 5-Moderate Pain Location: Lower Location Body Site: Back Pain Description: Ache Pt/Family Goals Return home Objective Patient Orientation: Person, Place, Time, Situation Attachments: Oxygen, IV ROM/Strength ROM Upper Extremities WFL ROM Lower Extremities WFL Strength Upper Extremities WFL Strength Lower Extremities (R) LE strength is grossly 4/5. Integumentary/Posture Bowel Incontinence: No Bladder Incontinence: No Neuromuscular (Tone, Coordination, Reflexes) intact Sensory Vision: Functional Hearing: Functional Hand Dominance: Right Sensation Right Upper Extremit: Intact Sensation Left Upper Extremity: Intact Sensation Right Lower Extremit: Intact Sensation Left Lower Extremity: Intact Transfers Roll Left to Right (QC): 5 Sit to Lying (QC): 5 Lying to Sitting/Side of Bed(Q: 4 Sit to Stand (QC): 3 Chair/Tbt-qv-Lxuzi Xfer(QC): 2 Able to perform a stand pivot transfer to the wheelchair with good form and safety. However, his return trip to the bed required more assistance due to fatigue. Wheelchair Training Does the Pt Use a Wheelchair?: Yes Due to telemetry and oxygen, he did not get to propel the wheelchair for distance. He was able to manage a short distance in the room. Balance Sitting Static: Good Sitting Dynamic: Good Assessment/Needs Pt fatigued quickly which made the return trip from the wheelchair more difficult. Rehab Potential: Fair PT Screen Tacker Goals Detention Goals PT Detention Goals Time Frame: Sep 12, 2022 Roll Left & Right (QC): 6 Sit to Lying (QC): 6 Lying-Sitting on Side/Bed(QC): 6 Chair/Ecn-fk-Cofsa Xfer(QC): 6 Does the Patient Walk: No and Walking Goal NOT indicated Wheel 50 feet with 2 turns (QC: 6 Type: Manual Wheel 150 feet: 6 Type: Manual PT Plan Problem List Problem List: Activity Tolerance, Functional Strength, Transfer, Bed Mobility Treatment/Plan Treatment Plan: Continue Plan of Care Treatment Plan: Bed Mobility, Functional Activity Jessi, Safety, Therapeutic Exercise, Transfers Treatment Duration: Sep 12, 2022 Frequency: 6 times per week Estimated Hrs Per Day: .25 hour per day Patient and/or Family Agrees t: Yes Time Time In: 1150 Time Out: 1220 DATE: Aug 29, 2022 Total Billed Treatment Time: 30 Total Billed Treatment 1, evlowc ANGIE CORONADO PT Aug 29, 2022 15:20
[2022-08-29 15:52] VITALS: BP 102/67
[2022-08-29] MEDS: inSUlin ASPART (NovoLOG) 1 UNIT/0.01 ML (CHARGE PER UNIT) SC SCH ×2 (16:00→19:53)
[2022-08-29 19:39] VITALS: BP 99/63
[2022-08-29] MEDS: MAGNESIUM OXIDE (MAG-OX)400 MG TAB PO SCH (20:56)
[2022-08-29] MEDS: MELATONIN 3 MG TABLET PO PRN (20:56)
[2022-08-29 23:22] VITALS: BP 101/63
[2022-08-30] MEDS: NYSTATIN ORAL SUSP 5 ML UDC PO SCH ×4 (02:05→17:13)
[2022-08-30 03:53] VITALS: BP 113/67
[2022-08-30 05:23] LABS: BASOPHILS % (AUTO) 0 % (0-10); EOSINOPHILS # (AUTO) 0.2 10^3/uL (0.0-0.3); EOSINOPHILS % (AUTO) 2 % (0-10); HEMATOCRIT 24 % (40-54); HEMOGLOBIN 8.2 g/dL (13.3-17.7); LYMPHOCYTES # (AUTO) 0.8 10^3/uL (1.0-4.0); LYMPHOCYTES % (AUTO) 7 % (12-44); MEAN CORPUSCULAR HEMOGLOBIN 33 pg (25-34); MEAN CORPUSCULAR HGB CONC 35 g/dL (32-36); MEAN CORPUSCULAR VOLUME 94 fL (80-99); MEAN PLATELET VOLUME 9.5 fL (9.0-12.2); MONOCYTES # (AUTO) 0.8 10^3/uL (0.0-1.0); MONOCYTES % (AUTO) 7 % (0-12); NEUTROPHILS % (AUTO) 84 % (42-75); PLATELET COUNT 355 10^3/uL (130-400); WHITE BLOOD COUNT 11.9 10^3/uL (4.3-11.0)
[2022-08-30 05:49] LABS: ALBUMIN 2.9 GM/DL (3.2-4.5); BILIRUBIN,TOTAL 0.5 MG/DL (0.1-1.0); CALCIUM 8.4 MG/DL (8.5-10.1); CREATININE SERUM 0.54 MG/DL (0.60-1.30); MAGNESIUM 1.9 MG/DL (1.6-2.4); POTASSIUM 3.1 MMOL/L (3.6-5.0); TOTAL PROTEIN 5.6 GM/DL (6.4-8.2)
[2022-08-30] MEDS: inSUlin ASPART (NovoLOG) 1 UNIT/0.01 ML (CHARGE PER UNIT) SC SCH ×4 (06:11→20:38)
[2022-08-30] MEDS: THIAMINE 100 MG (VITAMIN B-1) TAB PO SCH ×2 (06:16→09:54)
--- NOTE | 2022-08-30 07:12 | Progress Note - Hospitalist ---
Subjective HPI/CC On Admission Date Seen by Provider: Aug 30, 2022 Time Seen by Provider: 11:00 67 year old patient with a past medical history of T2DM not currently on insulin and with a recent hospitalization on 08/16 for GI bleed, DKA, and alcohol withdrawal presents to [facility] ER via private vehicle with a chief complaint of fatigue and lethargy that began yesterday morning. Patient states that starting yesterday he has been so tired that he has been unable to get up and do much more than go to the bathroom and smoke a cigarette before laying back down. Also endorses a decreased appetite and lack of fluid intake. Patient denies ever feeling like this before. Patients son was in the room and stated that he doesn't think patient got up more than twice in a 24 hour period yesterday. Patient states that the only medication that he takes for his diabetes is trulicity and that he has not missed a dose. Patient would also like us to know that he has recently switched from ibuprofen to tylenol on account of his ulcer and gi bleed that he recently was hospitalized for (discharged 08/19). He states that he has been taking four 500mg tylenol tablets anywhere from 3-4 times a day. Patient did go through alcohol withdrawal during his last admission and denies any further use of alcohol since discharge. Patient unable to give a detailed past medical history at this time. Is unsure of all medications taken and all conditions treated for. In the ER, patient was found to have a glucose level of 498 with a bicarb of 7 and an anion gap of 20. Beta-hydroxybutyrate level was found to be 7.36. Patient's serum alcohol and APAP were both <10. Awaiting UDS results at time of admission. Subjective/Events-last exam Improved overall Brittle DM HCO3 improved with supplement No N/V Sugar low today so adjusted meds Objective Exam Vital Signs Vital Signs Date Time Temp Pulse Resp B/P (MAP) Pulse Ox O2 Delivery O2 Flow Rate FiO2 08/30/22 11:37 37.3 104 20 103/58 (73) 98 Room Air 08/30/22 08:12 21 08/30/22 08:09 0.00 Capillary Refill : Less Than 3 Seconds General Appearance: No Apparent Distress, WD/WN, Chronically ill Respiratory: Lungs Clear, Normal Breath Sounds Cardiovascular: Regular Rate, Rhythm Neurologic/Psychiatric: Alert, Oriented x3, No Motor/Sensory Deficits, Normal Mood/Affect Results/Procedures Lab Laboratory Tests 08/30/22 04:43 Patient resulted labs reviewed. Imaging: Reviewed Imaging Films, Reviewed Imaging Report Assessment/Plan Assessment and Plan Assess & Plan/Chief Complaint Diabetic Ketoacidosis - Glucose 498 on admission. Bicarb 7. Anion gap 20. Beta-hydroxybutyrate 7.36. - DKA protocol - Corrected sodium 146. NS at 250cc/hr. When glucose reaches 200 switch to 5% dextrose with 0.45%NS at 150cc/hr. - Potassium 5. 20 MeQ of K+ given w/ each liter of fluid administered. Hold for K+ >5.3. Hold insulin for K+ <3.3. - Given 5.1 unit bolus IV insulin. Then start IV insulin at 5.1 units/hr. Reassess after first hour to determine future insulin rate. If glucose does not drop by at least 50, insulin adjustment will be necessary. - When serum glucose reaches 200, dose IV insulin at 0.02 units/kg/hr to maintain glucose between 150 and 200 until anion gap is closed. - Repeat labs Q2H - If patients pH less than 6.9 will need to give NaHCO3. - Serum alcohol and APAP were negative at this time. - May consider viral testing as possible stressor. Although at this time I believe it to be non-compliance and a change in diet as patient has not been eating much at all in past few days. - Patient will need change in outpatient insulin regimen upon discharge. Hyperlipidemia - Will need home med list to determine which agent patient is on. Hx of Peptic Ulcer Disease Hx of GI Bleed -Discharged on 08/19 after having GI Bleed from chronic NSAID use. -PPI therapy -Continue to monitor Hgb status. Debility/Weakness - PT/OT once gap resolves DVT Prophylaxis: SCDs given patients recent admission for GI Bleed. Critical Care Critically Ill Patient Clinical Quality Measures DVT/VTE Risk/Contraindication: Contraindications-Pharm: Other *list below* Other: CHIP Nicole DO Aug 30, 2022 07:12
[2022-08-30 07:45] VITALS: BP 114/60
[2022-08-30] MEDS: RT-ALBUTEROL SULF 2.5 MG/3 ML PRE-MIX VIAL INH SCH ×2 (08:09→21:32)
[2022-08-30 08:12] VITALS: BP 114/60
[2022-08-30] MEDS ORDERED: glipiZIDE XL 2.5 MG (GLUCOTROL XL) TAB PO SCH (09:00)
[2022-08-30] MEDS ORDERED: MULTIVITAMINS LIQUID 15 ML UDC PO SCH (09:00)
[2022-08-30] MEDS ORDERED: FOLIC ACID 1 MG TAB PO SCH (09:00)
[2022-08-30] MEDS: MAGNESIUM OXIDE (MAG-OX)400 MG TAB PO SCH ×2 (09:54→20:20)
[2022-08-30] MEDS: SODIUM BICARBONATE 650 MG TABLET PO SCH ×4 (09:54→20:20)
[2022-08-30] MEDS: FOLIC ACID 1 MG TAB PO SCH (09:54)
[2022-08-30] MEDS: KCL 10 MEQ TAB (MICRO K) PO SCH ×3 (09:54→17:13)
[2022-08-30] MEDS: PANTOPRAZOLE 40 MG (PROTONIX) TAB PO SCH (09:54)
[2022-08-30] MEDS: GABAPENTIN 600 MG (NEURONTIN) TAB PO SCH ×3 (09:54→20:20)
[2022-08-30] MEDS: MULTIVIT W/MINERALS TAB (THERAGRAN M) PO SCH (09:54)
[2022-08-30] MEDS: SENNOSIDES 8.6 MG (SENOKOT) TAB PO SCH ×2 (09:54→20:20)
[2022-08-30] MEDS: DOCUSATE SODIUM 100 MG (COLACE) CAP PO SCH ×2 (09:54→20:20)
[2022-08-30] MEDS: NICOTINE 21 MG (NICODERM) PATCH TD SCH (09:55)
[2022-08-30] MEDS: NICOTINE PATCH REMOVAL TP SCH (09:55)
[2022-08-30 11:37] VITALS: BP 103/58
[2022-08-30 15:20] VITALS: BP 100/67
[2022-08-30] MEDS: MELATONIN 3 MG TABLET PO PRN (20:20)
[2022-08-30 20:29] VITALS: BP 90/54
[2022-08-31 00:01] VITALS: BP 103/65
[2022-08-31] MEDS: NYSTATIN ORAL SUSP 5 ML UDC PO SCH ×3 (00:07→11:17)
[2022-08-31 04:38] LABS: BASOPHILS % (AUTO) 0 % (0-10); EOSINOPHILS # (AUTO) 0.3 10^3/uL (0.0-0.3); EOSINOPHILS % (AUTO) 2 % (0-10); HEMATOCRIT 25 % (40-54); HEMOGLOBIN 8.7 g/dL (13.3-17.7); LYMPHOCYTES # (AUTO) 1.4 10^3/uL (1.0-4.0); LYMPHOCYTES % (AUTO) 13 % (12-44); MEAN CORPUSCULAR HEMOGLOBIN 33 pg (25-34); MEAN CORPUSCULAR HGB CONC 35 g/dL (32-36); MEAN CORPUSCULAR VOLUME 94 fL (80-99); MEAN PLATELET VOLUME 9.5 fL (9.0-12.2); MONOCYTES % (AUTO) 9 % (0-12); NEUTROPHILS % (AUTO) 75 % (42-75); PLATELET COUNT 387 10^3/uL (130-400); WHITE BLOOD COUNT 10.8 10^3/uL (4.3-11.0)
[2022-08-31 05:00] LABS: BILIRUBIN,TOTAL 0.7 MG/DL (0.1-1.0); CREATININE SERUM 0.69 MG/DL (0.60-1.30); POTASSIUM 3.9 MMOL/L (3.6-5.0)
[2022-08-31] MEDS: THIAMINE 100 MG (VITAMIN B-1) TAB PO SCH ×2 (05:13→08:33)
[2022-08-31] MEDS: inSUlin ASPART (NovoLOG) 1 UNIT/0.01 ML (CHARGE PER UNIT) SC SCH ×2 (05:13→11:17)
[2022-08-31 07:41] VITALS: BP 107/67
[2022-08-31] MEDS: MULTIVIT W/MINERALS TAB (THERAGRAN M) PO SCH (08:32)
[2022-08-31] MEDS: NICOTINE 21 MG (NICODERM) PATCH TD SCH (08:32)
[2022-08-31] MEDS: MAGNESIUM OXIDE (MAG-OX)400 MG TAB PO SCH (08:32)
[2022-08-31] MEDS: KCL 10 MEQ TAB (MICRO K) PO SCH ×2 (08:32→11:18)
[2022-08-31] MEDS: PANTOPRAZOLE 40 MG (PROTONIX) TAB PO SCH (08:32)
[2022-08-31] MEDS: FOLIC ACID 1 MG TAB PO SCH (08:32)
[2022-08-31] MEDS: SODIUM BICARBONATE 650 MG TABLET PO SCH ×2 (08:32→11:18)
[2022-08-31] MEDS: GABAPENTIN 600 MG (NEURONTIN) TAB PO SCH ×2 (08:32→11:18)
[2022-08-31] MEDS: DOCUSATE SODIUM 100 MG (COLACE) CAP PO SCH (08:32)
[2022-08-31] MEDS: SENNOSIDES 8.6 MG (SENOKOT) TAB PO SCH (08:33)
[2022-08-31] MEDS: RT-ALBUTEROL SULF 2.5 MG/3 ML PRE-MIX VIAL INH SCH (08:35)
[2022-08-31] MEDS: NICOTINE PATCH REMOVAL TP SCH (08:36)
[2022-08-31] MEDS ORDERED: ACETAMINOPHEN 325 MG TABLET PO PRN (10:15)
[2022-08-31] MEDS ORDERED: NYST1000 PO (10:48)
[2022-08-31] MEDS ORDERED: NF-SODBICA PO (10:48)
[2022-08-31] MEDS ORDERED: OXC5T PO (10:48)
[2022-08-31] MEDS ORDERED: INSU100I29 SQ (10:48)
--- NOTE | 2022-08-31 10:49 | D/C HH Face to Face Order ---
D/C Face to Face Orders Reconcile Patient Problems Problems Reviewed?: Yes Instructions for Patient Via [facility], Patient Instructions/FollowUp: PCP 1 week Physician to follow Patient: [facility] Discharge Diet for Home: ADA Diet Patient Problems: Debility Patient Data-Allergies,Ht & Wt Patient Allergies: Coded Allergies: No Known Drug Allergies (Unverified , 05/02/11) Home Health Need/Face to Face Date of Face to Face: Aug 31, 2022 Clinical Findings: Generalized weakness and fatigue I have seen Pt [id number]: Yes Discharged To: Home Diagnosis/Conditions: Debility Patient is Homebound due to: Muscle weakness Homebound Status Due to the above stated illness, injury or surgical procedure (medical condition or diagnosis) and associated clinical findings, the patient is homebound because of his/her inability to leave home except with aid of a supportive device and/or person AND leaving the home requires a considerable and taxing effort or is medically contraindicated. Pt req the following assistanc: [facility] Health Nursing Orders Home Health Services Order: Nursing Services, Track Repair Laborer-Evaluate & Treat, Physical Therapy-Evaluate & Treat Home Health Infusion Therapy Line Start Date: Aug 27, 2022 Certify Stmt I certify that this patient is under my care and that I, a nurse practitioner or a physician; a periodontal assistant working with me, had a face to face encounter that - meets the physician face to face encounter requirements with this patient as dated. CHIP TAPIA DO Aug 31, 2022 10:49
--- NOTE | 2022-08-31 10:49 | Discharge Summary ---
Discharge Summary Hospital Course Was the Problem List Reviewed?: Yes Problems/Dx: (1) DKA (diabetic ketoacidosis) Status: Resolved Hospital Course Date of Admission: Aug 27, 2022 at 14:18 Admission Diagnosis : Family Physician/Provider: Roberto Carlos Perez DO Date of Discharge: 08/31/22 Discharge Diagnosis: [ ] Hospital Course: HPI on Admission: 67 year old patient with a past medical history of T2DM not currently on insulin and with a recent hospitalization on 08/16 for GI bleed, DKA, and alcohol withdrawal presents to [facility] ER via private vehicle with a chief complaint of fatigue and lethargy that began yesterday morning. Patient states that starting yesterday he has been so tired that he has been unable to get up and do much more than go to the bathroom and smoke a cigarette before laying back down. Also endorses a decreased appetite and lack of fluid intake. Patient denies ever feeling like this before. Patients son was in the room and stated that he doesn't think patient got up more than twice in a 24 hour period yesterday. Patient states that the only medication that he takes for his diabetes is trulicity and that he has not missed a dose. Patient would also like us to know that he has recently switched from ibuprofen to tylenol on account of his ulcer and gi bleed that he recently was hospitalized for (discharged 08/19). He states that he has been taking four 500mg tylenol tablets anywhere from 3-4 times a day. Patient did go through alcohol withdrawal during his last admission and denies any further use of alcohol since discharge. Patient unable to give a detailed past medical history at this time. Is unsure of all medications taken and all conditions treated for. In the ER, patient was found to have a glucose level of 498 with a bicarb of 7 and an anion gap of 20. Beta-hydroxybutyrate level was found to be 7.36. Patient's serum alcohol and APAP were both <10. Awaiting UDS results at time of admission. The patient was aggressively treated for DKA per protocol and remained in the ICU two days before his acidosis resolved enough to move to the floor. He continued to heavily diurese and other metabolites normalized with the exception of his Bicarb which remained mildly decreased and his chloride which remained mildly elevated subsequent to aggressive fluid resuscitation. His overall stay was 4 days. Events since last Exam: Patient is seen at bedside this AM. He is doing well. Complains of a stiff neck and requests some APAP. He's feeling better, still urinating a lot. He reports his son helps him at home. He is eating and drinking without issue and toileting without problems. Complains of his chronic amputation site pain. He is agreeable to starting some at-home insulin in addition to his outpatient trulicity prescription. Labs and Pending Lab Test: Laboratory Tests 08/30/22 15:20: Glucometer 124H 08/30/22 20:33: Glucometer 326H 08/31/22 04:16: White Blood Count 10.8, Red Blood Count 2.65L, Hemoglobin 8.7L, Hematocrit 25L, Mean Corpuscular Volume 94, Mean Corpuscular Hemoglobin 33, Mean Corpuscular Hemoglobin Concent 35, Red Cell Distribution Width 14.5, Platelet Count 387, Mean Platelet Volume 9.5, Immature Granulocyte % (Auto) 1, Neutrophils (%) (Auto) 75, Lymphocytes (%) (Auto) 13, Monocytes (%) (Auto) 9, Eosinophils (%) (Auto) 2, Basophils (%) (Auto) 0, Neutrophils # (Auto) 8.0H, Lymphocytes # (Auto) 1.4, Monocytes # (Auto) 1.0, Eosinophils # (Auto) 0.3, Basophils # (Auto) 0.0, Immature Granulocyte # (Auto) 0.1, Sodium Level 141, Potassium Level 3.9, Chloride Level 114H, Carbon Dioxide Level 16L, Anion Gap 11, Blood Urea Nitrogen 7, Creatinine 0.69, Estimat Glomerular Filtration Rate 100, BUN/Creatinine Ratio 10, Glucose Level 193H, Calcium Level 9.0, Corrected Calcium 9.8, Magnesium Level 2.0, Total Bilirubin 0.7, Aspartate Amino Transf (AST/SGOT) 24, Alanine Aminotransferase (ALT/SGPT) 104H, Alkaline Phosphatase 108, Total Protein 6.0L, Albumin 3.0L Microbiology 08/27/22 Urine Culture - Final, Complete Gram Pos Mixed Bacterial Emily 08/27/22 MRSA Screen - Final, Complete MRSA not isolated Home Meds Active Levemir Flextouch (Insulin Detemir) 100 Unit/Ml (3 Ml) Insuln.pen 8 Unit SQ BID Sodium Bicarbonate 650 Mg Tablet 650 Mg PO TID Oxyir Tablet (Oxycodone HCl) 5 Mg Tab 5 Mg PO PRN PRN Nystatin 100,000 Unit/Ml Oral.susp 5 Ml PO QID Reported B-1 (Thiamine HCl) 100 Mg Tablet 100 Mg PO DAILY Folic Acid 1 Mg Tablet 1 Mg PO DAILY Tab-A-[place] Multivit with Iron (Multivitamin/Iron/Folic Acid) 18 Mg Iron-400 Mcg Tablet 1 Each PO DAILY Pantoprazole Sodium 40 Mg Tablet.dr 40 Mg PO BID Sucralfate 1 Gram Tablet 1 Gm PO ACHS Tylenol Extra Strength (Acetaminophen) 500 Mg Tablet 2,000 Mg PO Q6H PRN TAKES 4 (500MG) TABS Gabapentin 600 Mg Tablet 600 Mg PO TID Glipizide ER (Glipizide) 2.5 Mg Tab 2.5 Mg PO DAILY Trulicity (Dulaglutide) 4.5 Mg/0.5 Ml Pen.injctr 4.5 Mg SQ WED Assessment/Pt Instructions pcp 1 week Discharge Planning: <30 minutes discharge planning Discharge Instructions Discharge Diet: ADA Diet Discharge Physical Examination Vital Signs Vital Signs Date Time Temp Pulse Resp B/P (MAP) Pulse Ox O2 Delivery O2 Flow Rate FiO2 08/31/22 09:00 97 Room Air 0.00 08/31/22 07:41 36.9 84 18 107/67 (80) 08/30/22 08:12 21 General Appearance: No Apparent Distress, WD/WN, Chronically ill Allergies: Coded Allergies: No Known Drug Allergies (Unverified , 05/02/11) Discharge Summary Date of Admission Aug 27, 2022 at 14:18 Date of Discharge Discharge Date: Aug 31, 2022 Admission Diagnosis DKA Discharge Diagnosis Diabetic Ketoacidosis - Glucose 498 on admission. Bicarb 7. Anion gap 20. Beta-hydroxybutyrate 7.36. - DKA protocol - Corrected sodium 146. NS at 250cc/hr. When glucose reaches 200 switch to 5% dextrose with 0.45%NS at 150cc/hr. - Potassium 5. 20 MeQ of K+ given w/ each liter of fluid administered. Hold for K+ >5.3. Hold insulin for K+ <3.3. - Given 5.1 unit bolus IV insulin. Then start IV insulin at 5.1 units/hr. Reassess after first hour to determine future insulin rate. If glucose does not drop by at least 50, insulin adjustment will be necessary. - When serum glucose reaches 200, dose IV insulin at 0.02 units/kg/hr to maintain glucose between 150 and 200 until anion gap is closed. - Repeat labs Q2H - If patients pH less than 6.9 will need to give NaHCO3. - Serum alcohol and APAP were negative at this time. - May consider viral testing as possible stressor. Although at this time I believe it to be non-compliance and a change in diet as patient has not been eating much at all in past few days. - Patient will need change in outpatient insulin regimen upon discharge. Hyperlipidemia - Will need home med list to determine which agent patient is on. Hx of Peptic Ulcer Disease Hx of GI Bleed -Discharged on 08/19 after having GI Bleed from chronic NSAID use. -PPI therapy -Continue to monitor Hgb status. Debility/Weakness - PT/OT once gap resolves DVT Prophylaxis: SCDs given patients recent admission for GI Bleed. Clinical Quality Measures DVT/VTE Risk/Contraindication: Contraindications-Pharm: Other *list below* Other: CHIP Nicole DO Aug 31, 2022 10:49
--- NOTE | 2022-08-31 11:37 | Progress Note ---
BROJACQUELIN Marla 08/31/22 1137: Progress Note Subjective: HPI on Admission: 67 year old patient with a past medical history of T2DM not cu rrently on insulin and with a recent hospitalization on 08/16 for GI bleed, DKA, and alcohol withdrawal presents to [facility] ER via private vehicle with a chief complaint of fatigue and lethargy that began yesterday morning. Patient states that starting yesterday he has been so tired that he has been unable to get up and do much more than go to the bathroom and smoke a cigarette before laying back down. Also endorses a decreased appetite and lack of fluid intake. Patient denies ever feeling like this before. Patients son was in the room and stated that he doesn't think patient got up more than twice in a 24 hour period yesterday. Patient states that the only medication that he takes for his diabe levon is trulicity and that he has not missed a dose. Patient would also like us to know that he has recently switched from ibuprofen to tylenol on account of his ulcer and gi bleed that he recently was hospitalized for (discharged 08/19). He states that he has been taking four 500mg tylenol tablets anywhere from 3-4 times a day. Patient did go through alcohol withdrawal during his last admission and denies any further use of alcohol since discharge. Patient unable to give a detailed past medical history at this time. Is unsure of all medications taken and all conditions treated for. In the ER, patient was found to have a glucose level of 498 with a bicarb of 7 and an anion gap of 20. Beta-hydroxybutyrate level was found to be 7.36. Patient's serum alcohol and APAP were both <10. Awaiting UDS results at time of admission. The patient was aggressively treated for DKA per protocol and miryam ined in the ICU two days before his acidosis resolved enough to move to the floor. He continued to heavily diurese and other metabolites normalized with the exception of his Bicarb which remained mildly decreased and his chloride which remained mildly elevated subsequent to aggressive fluid resuscitation. His overall stay was 4 days. Events since last Exam: Patient is seen at bedside this AM. He is doing well. Complains of a stiff neck and requests some APAP. He's feeling better, still urinating a lot. He reports his son helps him at home. He is eating and drinking without issue and toileting without problems. Complains of his chronic amputation site pain. He is agreeable to starting some at-home insulin in [facility]. 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 ) Neurologic/Psychiatric: Oriented x3 Skin: Normal Color, Warm/Dry Vital Signs Date Time Temp Pulse Resp B/P (MAP) Pulse Ox O2 Delivery O2 Flow Rate FiO2 08/31/22 09:00 97 Room Air 0.00 08/31/22 08:36 97 Room Air 08/31/22 07:41 36.9 84 18 107/67 (80) 97 Room Air 08/31/22 00:01 37.2 92 18 103/65 (78) 97 Room Air 08/30/22 21:32 99 Room Air 08/30/22 20:29 37.0 99 20 90/54 (66) 99 Room Air 08/30/22 20:25 Room Air 08/30/22 15:20 36.8 88 20 100/67 (78) 98 Room Air I & O 08/31/22 07:00 Intake Total 1060 ml Output Total 1000 ml Balance 60 ml Laboratory Tests 08/28/22 12:00 08/28/22 20:17 08/29/22 03:42 08/30/22 04:43 08/31/22 04:16 Radiology: NAME: ARASH BARILLAS [facility] REC#: [id number] PT STATUS: ADM IN : 1955 PHYSICIAN: CHIP TAPIA DO ADMIT DATE: 08/27/22/ICU Signed Date of Exam:08/29/22 CHEST 1 VIEW, AP/PA ONLY EXAMINATION: Chest 1 view HISTORY: Short of breath COMPARISON: 08/28/2022 FINDINGS: The lungs are clear without edema or pneumonia. No pleural effusion or pneumothorax. Heart size is normal. IMPRESSION: 1. Clear lungs. Dictated by: Dictated on workstation # [id number] Dict: 08/29/22 0712 Trans: 08/29/22 1049 RADHA [id number] Interpreted by: LASHAY CLARK MD Electronically signed by: LASHAY CLARK MD 08/29/22 1049 Assessment: This is a 67 y/o male who presented in DKA now hospital day 4. Plan Diabetes mellitus Diabetic Ketoacidosis - resolved - Glucose 498 on admission. Bicarb 7. Anion gap 20. Beta-hydroxybutyrate 7.36 -Serum alcohol and APAP were negative at admit -Thiamine and folate administered given pt's report of high amounts of alcohol. -UA negative for infectious; possible pneumonitis vs atelectasis on CXR but no symptoms; infection unlikely to be predisposing to DKA -Likely non-compliance and diet change to cause DKA. Will need close follow- up to tailor outpatient DM therapy. -Restart trulicity at home -Will send with levemir 8u SQ BID. Elevated Cl/Low Bicarb -Likely 2/2 aggressive fluid resuscitation with DKA protocol; still heavily diuresing -Recheck on outpatient FU - if still present should consider Type I or II renal tubular acidosis workup. Reported Alcohol use disorder -UDS negative for alcohol or other substances at this time -Thiamine/folate given -No withdrawal symptoms during this hospital stay. Hx of Peptic Ulcer Disease Hx of GI Bleed -Dr. Carroll consulted and managing; appreciate recs -Discharged on 08/19 after having GI Bleed from chronic NSAID use. -PPI therapy -Pathology notes pattern c/w H. pylori but no growth possibly d/t chronic PPI use. -Hgb stable, small drop likely dilutional given amount of fluid resuscitation given. -Triple therapy with amoxicillin, metronidazole, and protonix initiated 3/3 -FU with Dr. Carroll -Peptic ulcer + diabetic diet. Hyperlipidemia -FU outpatient Debility/Weakness - PT/OT consult. FEN/GI -PPI -Bowel regimen -Diabetic diet/peptic ulcer diet DVT Prophylaxis: SCDs given patients recent admission for GI Bleed. Dispo: Stable and ready for DC. Will send home on basal insulin for home for better BGL control. FU outpatient closely. CHIP TAPIA DO 09/01/22 0624: Supervisory-Addendum Brief Verification & Attestation Participated in pt care: history, MDM, physical Personally performed: exam, history, MDM, supervision of care Care discussed with: Medical Student Procedures: n/a Results interpretation: Verified all documentation Verification and Attestation of Medical Student E/M Service A medical student performed and documented this service in my presence. I reviewed and verified all information documented by the medical student and made modifications to such information, when appropriate. I personally performed the physical exam and medical decision making. Chip Tapia, Sep 01, 2022,04:44 JACQUELIN BRO Aug 31, 2022 11:37 CHIP TAPIA DO Sep 01, 2022 04:44
[2022-08-31 12:48] VITALS: BP 107/67
== END 2022-08-31 14:00 | disposition home health service (06) | DRG 638 ==
LOC: EDUNIT# 11:29 → ER 11:31 → ICU 14:18 → 4TH 08-29 13:40
PROVIDERS: ADMIT Internal Medicine; ATTEND Internal Medicine
DX: E11.10 Type 2 diabetes mellitus with ketoacidosis without coma (principal); B37.0 Candidal stomatitis; N17.9 Acute kidney failure, unspecified; E78.5 Hyperlipidemia, unspecified; R53.81 Other malaise; F10.90 Alcohol use, unspecified, uncomplicated; F17.210 Nicotine dependence, cigarettes, uncomplicated; E11.40 Type 2 diabetes mellitus with diabetic neuropathy, unspecified; E11.51 Type 2 diabetes mellitus with diabetic peripheral angiopathy without gangrene; Z89.512 Acquired absence of left leg below knee; E86.0 Dehydration; G89.29 Other chronic pain; I25.10 Atherosclerotic heart disease of native coronary artery without angina pectoris; Z95.5 Presence of coronary angioplasty implant and graft
CPT/HCPCS: 36415; 71045; 80048; 80053; 80306; 80320; 80329; 81000; 82010; 82805; 82947; 83036; 83735; 84100; 85007; 85025; 85027; 85610; 85730; 87081; 87088; 93005; 94640; 94760

== ENCOUNTER 2022-09-04 08:23 | Emergency (ER) | payer MEDICARE, MEDICAID ==
[~2022-09-04] VITALS: Ht 167 cm; Wt 51.2 kg
[~2022-09-04 08:23] MED LIST changes: +ACET-2267 PO; +INSU100I29 SQ; +NF-SODBICA PO; +NYST1000 PO; +SUCR1TAB PO; +THIA100T66 PO
--- NOTE | 2022-09-04 09:41 | ED General ---
General Chief Complaint: Skin/Wound Problems Stated Complaint: CYSTS UNDER ARMS Nursing Triage Note: PT PRESENTS TO ED VIA POV FROM HOME WITH COMPLAINTS OF BILATERAL CYST UNDER BOTH ARMPITS X 1 WEEK THAT ARE PAINFUL AND PROGRESSIVELY GETTING WORSE. PT ALSO REPORTS L WRIST SKIN CONCERN WHERE HE HAD AN IV PLACED LAST WEEK WHEN HE WAS SEEN IN ED. Source of Information: Patient Exam Limitations: No Limitations History of Present Illness Date Seen by Provider: Sep 04, 2022 Time Seen by Provider: 09:30 Initial Comments This 67-year-old gentleman presents to the emergency room with complaint of abscesses under both axilla and of the left wrist. He states these developed after his recent admission for treatment of DKA. The abscess on the left wrist has been draining. 3 abscesses in the right axilla are not draining. The single abscess in the left axilla is also not draining. He first noticed these abscesses yesterday. He denies fever. Allergies and Home Medications Allergies Coded Allergies: No Known Drug Allergies (Unverified , 05/02/11) Patient Home Medication List Home Medication List Reviewed: Yes Acetaminophen (Tylenol Extra Strength) 500 Mg Tablet, 2,000 MG PO Q6H PRN for PAIN-MILD (1-4), (Reported) Entered as Reported by: BAKARI PRATT on 08/28/22 1014 Dulaglutide (Trulicity) 4.5 Mg/0.5 Ml Pen.injctr, 4.5 MG SQ WED, (Reported) Entered as Reported by: BAKARI PRATT on 08/17/22 1213 Folic Acid (Folic Acid) 1 Mg Tablet, 1 MG PO DAILY, (Reported) Entered as Reported by: BAKARI PRATT on 08/28/22 1014 Gabapentin (Gabapentin) 600 Mg Tablet, 600 MG PO TID, (Reported) Entered as Reported by: BAKARI PRATT on 08/28/22 1014 Insulin Detemir (Levemir Flextouch) 100 Unit/Ml (3 Ml) Insuln.pen, 8 UNIT SQ BID Prescribed by: CHIP TAPIA on 08/31/22 1048 Multivitamin/Iron/Folic Acid (Tab-A-Froilan Multivit with Iron) 18 Mg Iron-400 Mcg Tablet, 1 EACH PO DAILY, (Reported) Entered as Reported by: BAKARI PRATT on 08/28/22 1014 Nystatin (Nystatin) 100,000 Unit/Ml Oral.susp, 5 ML PO QID Prescribed by: CHIP TAPIA on 08/31/22 1048 Oxycodone Hcl (Oxyir Tablet) 5 Mg Tab, 5 MG PO PRN PRN for PAIN-SEE DOSE INSTRUCTIONS Prescribed by: CHIP TAPIA on 08/31/22 1048 Pantoprazole Sodium (Pantoprazole Sodium) 40 Mg Tablet.dr, 40 MG PO BID, (Reported) Entered as Reported by: BAKARI PRATT on 08/28/22 1014 Sodium Bicarbonate (Sodium Bicarbonate) 650 Mg Tablet, 650 MG PO TID Prescribed by: CHIP TAPIA on 08/31/22 1048 Sucralfate (Sucralfate) 1 Gram Tablet, 1 GM PO ACHS, (Reported) Entered as Reported by: BAKARI PRATT on 08/28/22 1014 Sulfamethoxazole/Trimethoprim (Bactrim Ds Tablet) 1 Each Tablet, 1 EACH PO BID Prescribed by: CRIS LATIF on 09/04/22 1028 Thiamine HCl (B-1) 100 Mg Tablet, 100 MG PO DAILY, (Reported) Entered as Reported by: BAKARI PRATT on 08/28/22 1014 Discontinued Medications Glipizide (Glipizide ER) 2.5 Mg Tab, 2.5 MG PO DAILY, (Reported) Entered as Reported by: BAKARI PRATT on 08/17/22 1213 Review of Systems Review of Systems Constitutional: no symptoms reported EENTM: no symptoms reported Respiratory: no symptoms reported Cardiovascular: no symptoms reported Gastrointestinal: no symptoms reported Genitourinary: no symptoms reported Musculoskeletal: no symptoms reported Skin: see HPI Psychiatric/Neurological: No Symptoms Reported Hematologic/Lymphatic: No Symptoms Reported Immunological/Allergic: no symptoms reported Past Yymtahu-Amouun-Hetxdk Hx Patient Social History Tobacco Use?: Yes Tobacco type used: Cigarettes Smoking Status: Current Everyday Smoker Substance use?: No Alcohol Use?: No Pt feels they are or have been: No Immunizations Up To Date First/Initial COVID19 Vaccinat: 01/20/2021 Second COVID19 Vaccination Dylan: 02/20/2021 Third COVID19 Vaccination Date: 09/03/2021 Past Medical History Surgery/Hospitalization HX: DM, AMPUTATION Surgeries: Yes Amputation, Orthopedic Currently Using CPAP: No Currently Using BIPAP: No Neurological: Yes Neuropathy Gastrointestinal: Yes Gastrointestinal Bleed, Ulcer Endocrine: Yes Diabetes, Insulin dep Family Medical History No Pertinent Family Hx Physical Exam Vital Signs Vital Signs - First Documented 09/04/22 08:44 Temp 36.3 Pulse 102 Resp 18 B/P (MAP) 96/64 (75) Pulse Ox 94 O2 Delivery Room Air Capillary Refill : Less Than 3 Seconds Height, Weight, BMI Height: '" Weight: lbs. oz. kg; 18.00 BMI Method:Estimated General Appearance: WD/WN, Mild Distress, Thin HEENT: Normal ENT Inspection Neck: Normal Inspection Respiratory: Lungs Clear, Normal Breath Sounds Cardiovascular: Regular Rate, Rhythm, No Murmur Neurologic/Psychiatric: Alert, Oriented x3 Skin: Warm/Dry, Other (3 abscesses in the right axilla, one abscess in the left axilla, 1 abscess on the left wrist. The left wrist abscess is draining.) Procedures/Interventions I&D : Site: bilateral axilla Blade Size: 11 Progress Abscess incision and drainage was performed by Meño Dunlap MS4, under my direct supervision. Skin was cleaned with alcohol and ring block was used for anesthesia with lidocaine 1% around each of the axillary abscesses. Skin was then cleaned with chlorhexidine wipes over the surface of the abscesses. Incisions 5 to 10 mm in length were made over the center of each of the 4 abscesses. A significant amount of purulent material was expressed from each of them. The abscess was then irrigated out with saline using an IV catheter. Culture was obtained from the largest abscess on the right. Wounds were left open and dressed with simple gauze padding. Patient was treated with hydrocodone and Bactrim. Prescription was provided. Patient states he already has a prescription waiting at the pharmacy of hydrocodone. Date of ETT Placement: November 16, 2020 Time of ETT Placement: 1510 Progress/Results/Core Measures Suspected Sepsis SIRS Temperature: Pulse: 102 Respiratory Rate: 18 Blood Pressure 96 /64 Mean: 75 Results/Orders Micro Results Microbiology 09/04/22 Gram Stain - Final, Resulted 09/04/22 Wound Culture - Preliminary, Resulted Staphylococcus aureus My Orders Orders - CRIS ISAAC MD Wound Culture (09/04/22 09:37) Lidocaine 1% Inj 10 Ml (Xylocaine 1% Inj (09/04/22 09:45) Hydrocodone/Apap 5/325 Tablet (Lortab 5 (09/04/22 10:30) Sulfamethoxazole/Trimet Ds Tab (Bactrim (09/04/22 10:30) Vital Signs/I&O 09/04/22 09/04/22 08:44 10:36 Temp 36.3 36.3 Pulse 102 102 Resp 18 18 B/P (MAP) 96/64 (75) 96/64 Pulse Ox 94 94 O2 Delivery Room Air Room Air Capillary Refill : Less Than 3 Seconds Blood Pressure Mean: 75 Departure Impression Primary Impression: Abscess of axilla, left Additional Impressions: Abscess of axilla, right Encounter for incision and drainage procedure Disposition: HOME, SELF-CARE Condition: Improved Departure-Patient Inst. Decision time for Depature: 10:25 Referrals: BAKARI HINSON DO (PCP/Family) Primary Care Physician Patient Instructions: Abscess Incision and Drainage Add. Discharge Instructions: Keep your wounds covered as long as they are draining. Do not submerge until they close up, but you may shower. You can encourage draining of the abscess on your wrist by applying warm moist compresses several times a day or by soaking in warm soapy water and 15-minute intervals several times a day. Complete antibiotics as prescribed. Watch your blood sugars closely while you are healing from these abscesses. Follow-up with your primary care provider on Wednesday to review wound culture results. You may use Tylenol (acetaminophen) up to 1000 mg every 6 hours as needed for more mild pain. For more severe pain, use the hydrocodone you are previously prescribed. Return to the emergency room if you have worsening symptoms, especially if you develop fever over 100 degrees. All discharge instructions reviewed with patient and/or family. Voiced understanding. Scripts Sulfamethoxazole/Trimethoprim (Bactrim Ds Tablet) 1 Each Tablet 1 EACH PO BID, #20 TAB Prov: CRIS ISAAC MD 09/04/22 Copy Copies To 1: BAKARI HINSON JOSHUA T MD Sep 04, 2022 09:41
[2022-09-04] MEDS ORDERED: LIDOCAINE 1% INJ 10 ML VIAL INJ ONE (09:45)
[2022-09-04] MEDS ORDERED: SULF1TAB38 PO (10:28)
[2022-09-04] MEDS ORDERED: TRIM/SULFAMETH 160/800 (SEPTRA DS) TAB PO ONE (10:30)
[2022-09-04] MEDS ORDERED: HYDROcodone/APAP 5 MG/325 MG (LORTAB) TAB PO ONE (10:30)
[2022-09-04 10:36] VITALS: BP 96/64
== END 2022-09-04 10:36 | disposition home or self-care (01) ==
LOC: EDUNIT# 08:23 → ER 08:24
DX: L02.411 Cutaneous abscess of right axilla (principal); L02.412 Cutaneous abscess of left axilla; L02.414 Cutaneous abscess of left upper limb; F17.210 Nicotine dependence, cigarettes, uncomplicated
CPT/HCPCS: 10060; 87070; 87077; 87186; 87205

== ENCOUNTER 2022-09-10 03:06 | Inpatient (IN) | payer MEDICARE, MEDICAID ==
[~2022-09-10] VITALS: Ht 167.7 cm; Wt 57.6 kg
[2022-09-10] MEDS ORDERED: NS IV 1000 ML 1,000 ML IV SCH ×3 (03:30→05:45)
[2022-09-10 03:41] LABS: BASOPHILS % (AUTO) 0 % (0-10); EOSINOPHILS # (AUTO) 0.1 10^3/uL (0.0-0.3); EOSINOPHILS % (AUTO) 1 % (0-10); HEMATOCRIT 29 % (40-54); HEMOGLOBIN 9.9 g/dL (13.3-17.7); LYMPHOCYTES # (AUTO) 0.8 10^3/uL (1.0-4.0); LYMPHOCYTES % (AUTO) 7 % (12-44); MEAN CORPUSCULAR HEMOGLOBIN 32 pg (25-34); MEAN CORPUSCULAR HGB CONC 34 g/dL (32-36); MEAN CORPUSCULAR VOLUME 94 fL (80-99); MONOCYTES # (AUTO) 0.1 10^3/uL (0.0-1.0); MONOCYTES % (AUTO) 1 % (0-12); NEUTROPHILS # (AUTO) 9.1 10^3/uL (1.8-7.8); NEUTROPHILS % (AUTO) 90 % (42-75); PLATELET COUNT 371 10^3/uL (130-400); WHITE BLOOD COUNT 10.2 10^3/uL (4.3-11.0)
[2022-09-10] MEDS ORDERED: LIDOCAINE UROJET 2% GEL 10 ML PKG TOP ONE (03:45)
--- NOTE | 2022-09-10 03:45 | ED General ---
General Stated Complaint: BLOOD SUGAR 300 Source of Information: Patient (LIMITED HISTORIAN), Old Records, Other (SON GIVES SOME INFORMATION) (WISAM ROUSE DO) History of Present Illness Date Seen by Provider: Sep 10, 2022 Time Seen by Provider: 03:25 Initial Comments PT ARRIVES VIA POV FROM HOME WITH SON, IN A WHEELCHAIR PT WITH MULTIPLE COMPLAINTS PT IS INSULIN DEPENDENT DIABETIC, WITH LONG HISTORY OF POOR CONTROL. HE CURRENTLY HAS A CGM IN PLACE ON HIS ABDOMEN. HE DOES NOT HAVE AN INSULIN PUMP PT WAS ADMITTED HERE 08/27-08/31/22 FOR DKA. HE WAS BACK HERE IN ER 09/04/22 FOR MULTIPLE BILATERAL AXILLARY ABSCESSES, AND HAD MULTIPLE I&D'S. THESE WERE NOT PACKED, BUT SOME ARE STILL DRAINING A LITTLE. HE WAS PRESCRIBED BACTRIM. PT STATES HIS BLOOD SUGARS HAVE CONSTANTLY STAYED OVER 300 SINCE HE WAS DISMISSED FROM THE HOSPITAL HE WAS SEEN AT [facility] YESTERDAY--09/08/22 AND INS INSULIN DOSE WAS INCREASED. PT STATES IT IS NOT IMPROVING HIS BLOOD SUGARS. BLOOD SUGAR READINGS ARE NO DIFFERENT TONIGHT THAN WHAT THEY HAVE BEEN HE HAS HAD ONGOING NAUSEA/VOMITING--VOMITED X 1 YESTERDAY. NO VOMITING TODAY HE HAS NOT HAD ANY APPETITE, AND HAS NOT BEEN DRINKING OR EATING. HE HAS HAD A LITTLE BIT OF PEDIALYTE HE HAD A NORMAL BM AROUND NOON, AND VOIDED A SMALL AMOUNT AT THAT TIME HE HAS NOT URINATED SINCE THEN. 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 HE HAS HAD PROSTHETIC LEG, BUT HE DOES NOT WEAR IT. HE HAS A CHRONIC SCABBED WOUND TO STUMP, BUT IS SCABBED OVER, NOT RED, OR SWOLLEN/FLUCTUANT OR DRAINING OR PAINFUL. HE HAS CHRONIC GENERALIZED PAIN, AND HAS BEEN ON HYDROCODONE IN THE PAST, PT STATES THAT HE HAS NOT BEEN TAKING IT BECAUSE THE WON'T PRESCRIBE IT ANY MORE HE WAS TAKING IBUPROFEN, BUT WAS ADMITTED 08/16-08/22/22 FOR GI BLEED, SO NOW HE IS TAKING TYLENOL INSTEAD OF IBUPROFEN HE STATES HE TAKES 6 PILLS A DAY OF TYLENOL PT DRINKS A PINT OF HARD LIQUOR/DAY, AND HAS ALL HIS LIFE--STATES HE HAS NOT DRANK ANY SINCE HIS ADMIT FOR GI BLEED IN JULY, AND HE DID GO THROUGH WITHDRAWL DURING THAT ADMIT HE CONTINUES TO SMOKE 1 PPD SINCE AGE 10 HE HAS HISTORY OF CHRONIC OPIATE USE, AND HAS BEEN ON METHADONE IN THE PAST, HAS OVERDOSED ON MEDS 10/2020 AND REQUIRED INTUBATION PT HAS LONG HISTORY OF ILLICIT DRUG USE--PT STATES HE "USED ALL OF THEM" AND HAS EXTENSIVE IV DRUG USE, STATES HIS DRUG OF CHOICE IS METHAMPHETAMINE, CLAIMS NO USE FOR 2 YEARS. PT LIVES ALONE, SON HAS BEEN STAYING WITH HIM RECENTLY SINCE RECENT HOSPITALIZATIONS. PCP: DR. HINSON AT [facility] (WISAM ROUSE DO) Allergies and Home Medications Allergies Coded Allergies: No Known Drug Allergies (Unverified , 05/02/11) Patient Home Medication List Home Medication List Reviewed: Yes (DAVID RAYO MD) Acetaminophen (Tylenol Extra Strength) 500 Mg Tablet, 2,000 MG PO Q6H PRN for PAIN-MILD (1-4), (Reported) Entered as Reported by: BAKARI PRATT on 08/28/22 1014 Dulaglutide (Trulicity) 4.5 Mg/0.5 Ml Pen.injctr, 4.5 MG SQ WED, (Reported) Entered as Reported by: BAKARI PRATT on 08/17/22 1213 Folic Acid (Folic Acid) 1 Mg Tablet, 1 MG PO DAILY, (Reported) Entered as Reported by: BAKARI PRATT on 08/28/22 1014 Gabapentin (Gabapentin) 600 Mg Tablet, 600 MG PO TID, (Reported) Entered as Reported by: BAKARI PRATT on 08/28/22 1014 Insulin Detemir (Levemir Flextouch) 100 Unit/Ml (3 Ml) Insuln.pen, 8 UNIT SQ BID Prescribed by: CHIP TAPIA on 08/31/22 1048 Multivitamin/Iron/Folic Acid (Tab-A-Froilan Multivit with Iron) 18 Mg Iron-400 Mcg Tablet, 1 EACH PO DAILY, (Reported) Entered as Reported by: BAKARI PRATT on 08/28/22 1014 Nystatin (Nystatin) 100,000 Unit/Ml Oral.susp, 5 ML PO QID Prescribed by: CHIP TAPIA on 08/31/22 1048 Oxycodone Hcl (Oxyir Tablet) 5 Mg Tab, 5 MG PO PRN PRN for PAIN-SEE DOSE INSTRUCTIONS Prescribed by: CHIP TAPIA on 08/31/22 1048 Pantoprazole Sodium (Pantoprazole Sodium) 40 Mg Tablet.dr, 40 MG PO BID, (Reported) Entered as Reported by: BAKARI PRATT on 08/28/22 1014 Sodium Bicarbonate (Sodium Bicarbonate) 650 Mg Tablet, 650 MG PO TID Prescribed by: CHIP TAPIA on 08/31/22 1048 Sucralfate (Sucralfate) 1 Gram Tablet, 1 GM PO ACHS, (Reported) Entered as Reported by: BAKARI PRATT on 08/28/22 1014 Sulfamethoxazole/Trimethoprim (Bactrim Ds Tablet) 1 Each Tablet, 1 EACH PO BID Prescribed by: CRIS LATIF on 09/04/22 1028 Thiamine HCl (B-1) 100 Mg Tablet, 100 MG PO DAILY, (Reported) Entered as Reported by: BAKARI PRATT on 08/28/22 1014 Review of Systems Review of Systems Constitutional: see HPI, malaise, weakness EENTM: see HPI Respiratory: no symptoms reported; No cough, No short of breath Cardiovascular: no symptoms reported; No chest pain, No edema, No palpitations, No syncope Gastrointestinal: see HPI; No abdominal pain; loss of appetite, nausea, vomiting Genitourinary: see HPI, decreased output; No dysuria Musculoskeletal: no symptoms reported (BUT HAS CHRONIC GENERALIZED PAIN -OPIATE DEPENDENT), other Skin: see HPI Psychiatric/Neurological: No Symptoms Reported Hematologic/Lymphatic: Other (PT ADMITTED FOR GI BLEED 08/16-08/22/22) Immunological/Allergic: no symptoms reported (WISAM ROUSE DO) Past Nkwqqof-Iiyflb-Mpizpp Hx Patient Social History Tobacco Use?: Yes Tobacco type used: Cigarettes Smoking Status: Current Everyday Smoker Substance use?: Yes Substance type: Amphetamines, Methamphetamine, Opiates/Opioids, Misuse of prescript meds, Other Additional substance use comme: OVERDOSED 10/2020 Substance frequency: Daily Alcohol Use?: Yes Alcohol type: Hard Liquor Alcohol Frequency: Daily (WISAM ROUSE DO) Immunizations Up To Date First/Initial COVID19 Vaccinat: 01/20/2021 Second COVID19 Vaccination Dylan: 02/20/2021 Third COVID19 Vaccination Date: 09/03/2021 (WISAM ROUSE DO) Past Medical History Surgery/Hospitalization HX: DM, AMPUTATION Surgeries: Yes (LEFT BKA) Amputation, Orthopedic Respiratory: No (PT WAS INTUBATED 10/2020 DUE TO OVERDOSE) Currently Using CPAP: No Currently Using BIPAP: No Cardiac: No Neurological: Yes Neuropathy Genitourinary: No Gastrointestinal: Yes (GI BLEED DUE TO NSAIDS 07/2022) Gastrointestinal Bleed, Ulcer Musculoskeletal: Yes (L BKA DUE TO OSTEOMYELITIS/SEPTIC SHOCK/DKA; CHRONIC GENERALIZED PAIN ) Amputee Endocrine: Yes (MULTIPLE EPISODES OF DKA. ) Diabetes, Insulin dep HEENT: Yes (EDENTULOUS) Cancer: No Psychosocial: Yes (OVERDOSED 10/2020; POLYSUBSTANCE ABUSE) Integumentary: Yes (ABSCESSES) Blood Disorders: No (WISAM ROUSE DO) Family Medical History No Pertinent Family Hx SOCIAL HISTORY: -SMOKES 1 PPD SINCE AGE 10 -ETOH--DRINKS A PINT OF HARD LIQUOR A DAY ALL OF HIS LIFE -DRUGS--HX OF OPIATE ABUSE /OVERDOSE, HAS BEEN ON METHADONE IN PAST WELL CHRONIC OPIATE USE PT STATES HE HAS "USED ALL OF THEM" , WITH EXTENSIVE IV DRUG USE. STATES HIS DRUG OF CHOICE HAS BEEN METHAMPHETAMINES, CLAIMS NONE X 2 YEARS, PER PT ON 09/10/22 HAD LEFT BKA DONE DUE TO OSTEOMYELITIS WITH SEPTIC SHOCK AND DKA. (WISAM ROUSE DO) Physical Exam Vital Signs Vital Signs - First Documented 09/10/22 03:15 Temp 36.5 Pulse 79 Resp 18 B/P (MAP) 91/62 (72) Pulse Ox 99 O2 Delivery Room Air (DAVID RAYO MD) Vital Signs Capillary Refill : (WISAM ROUSE DO) Height, Weight, BMI Height: '" Weight: lbs. oz. kg; 18.00 BMI Method:Estimated General Appearance: No Apparent Distress, Chronically ill, Thin, Other (SOMEWHAT LETHARGIC. UNKEMPT) HEENT: PERRL/EOMI, Other (EDENTULOUS. THRUSH PRESENT ON TONGUE, AND ORAL MUCOSA IS VERY DRY AND TONGUE IS VERY FISSURED. ) Neck: Normal Inspection Respiratory: Normal Breath Sounds, No Accessory Muscle Use, No Respiratory Distress Cardiovascular: Regular Rate, Rhythm, No JVD, No Murmur Gastrointestinal: Normal Bowel Sounds, No Organomegaly, No Pulsatile Mass, Non Tender, Soft Back: No CVA Tenderness Extremity: No Pedal Edema, Other (LEFT BKA STUMP WITH SCABBED WOUND, WITHOUT SIGNS OF ABSCESS OR INFECTION. BILATERAL AXILLA WITH MULTIPLE SMALL ABSCESSES--ALL LESS THAN 1 CM, MILDLY INFLAMED, SOME STILL DRAINING A SCANT AMOUNT OF PURULENT MATERIAL. 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 ABSCESSES NOTED ABOVE. ) (WISAM ROUSE DO) Focused Exam Sepsis Stage: Sepsis (POSSIBLE) Possible Source: Unknown (WISAM ROUSE DO) Lactate Level 09/10/22 03:35: Lactic Acid Level 2.74*H 09/10/22 06:30: Lactic Acid Level 1.87 (DAVID RAYO MD) Time of Focused Exam: 05:00 Respiratory: Normal Breath Sounds, No Accessory Muscle Use, No Respiratory Distress Cardiovascular: Regular Rate, Rhythm, No Murmur Capillary Refill: Less Than 3 Seconds Skin: normal color, warm/dry (WISAM ROUSE DO) Lactic Acid Level Laboratory Tests Test 09/10/22 03:35 09/10/22 06:30 Lactic Acid Level 2.74 MMOL/L (0.50-2.00) *H 1.87 MMOL/L (0.50-2.00) (DAVID RAYO MD) Within 3hrs of presentation: Admin fluids, Admin ABX, Blood cultures prior to ABX's, Focus exam, Lactate level (WISAM ROUSE DO) Procedures/Interventions Date of ETT Placement: November 16, 2020 Time of ETT Placement: 1510 (WISAM ROUSE DO) Progress/Results/Core Measures Suspected Sepsis SIRS Temperature: Pulse: Respiratory Rate: Laboratory Tests 09/10/22 03:31: White Blood Count 10.2 Blood Pressure / Mean: 09/10/22 03:35: Lactic Acid Level 2.74*H Laboratory Tests 09/10/22 03:31: Creatinine 2.33H, INR Comment 2.5H, Platelet Count 371, Total Bilirubin 0.8 (NASIMWISAM Hardin ) Results/Orders Lab Results Laboratory Tests Test 09/10/22 03:31 09/10/22 03:35 09/10/22 03:36 09/10/22 03:43 Range/Units White Blood Count 10.2 4.3-11.0 10^3/uL Red Blood Count 3.09 L 4.30-5.52 10^6/uL Hemoglobin 9.9 L 13.3-17.7 g/dL Hematocrit 29 L 40-54 % Mean Corpuscular Volume 94 80-99 fL Mean Corpuscular Hemoglobin 32 25-34 pg Mean Corpuscular Hemoglobin Concent 34 32-36 g/dL Red Cell Distribution Width 15.1 H 10.0-14.5 % Platelet Count 371 130-400 10^3/uL Mean Platelet Volume 10.0 9.0-12.2 fL Immature Granulocyte % (Auto) 1 % Neutrophils (%) (Auto) 90 H 42-75 % Lymphocytes (%) (Auto) 7 L 12-44 % Monocytes (%) (Auto) 1 0-12 % Eosinophils (%) (Auto) 1 0-10 % Basophils (%) (Auto) 0 0-10 % Neutrophils # (Auto) 9.1 H 1.8-7.8 10^3/uL Lymphocytes # (Auto) 0.8 L 1.0-4.0 10^3/uL Monocytes # (Auto) 0.1 0.0-1.0 10^3/uL Eosinophils # (Auto) 0.1 0.0-0.3 10^3/uL Basophils # (Auto) 0.0 0.0-0.1 10^3/uL Immature Granulocyte # (Auto) 0.1 0.0-0.1 10^3/uL Neutrophils % (Manual) 84 % Lymphocytes % (Manual) 11 % Monocytes % (Manual) 4 % Eosinophils % (Manual) 1 % Basophils % (Manual) 0 % Band Neutrophils 0 % Polychromasia SLIGHT Hypochromasia MODERATE Poikilocytosis SLIGHT Anisocytosis SLIGHT Crenated Cell SLIGHT Prothrombin Time 27.7 H 12.2-14.7 SEC INR Comment 2.5 H 0.8-1.4 Activated Partial Thromboplast Time 44 H 24-35 SEC Sodium Level 140 135-145 MMOL/L Potassium Level 3.4 L 3.6-5.0 MMOL/L Chloride Level 108 H 98-107 MMOL/L Carbon Dioxide Level 14 L 21-32 MMOL/L Anion Gap 18 H 5-14 MMOL/L Blood Urea Nitrogen 48 H 7-18 MG/DL Creatinine 2.33 H 0.60-1.30 MG/DL Estimat Glomerular Filtration Rate 30 BUN/Creatinine Ratio 21 Glucose Level 224 H 70-105 MG/DL Calcium Level 9.3 8.5-10.1 MG/DL Corrected Calcium 9.9 8.5-10.1 MG/DL Magnesium Level 2.5 H 1.6-2.4 MG/DL Total Bilirubin 0.8 0.1-1.0 MG/DL Aspartate Amino Transf (AST/SGOT) 2634 H 5-34 U/L Alanine Aminotransferase (ALT/SGPT) 2184 H 0-55 U/L Alkaline Phosphatase 243 H 40-136 U/L Troponin I 0.063 H <0.028 NG/ML Total Protein 7.0 6.4-8.2 GM/DL Albumin 3.3 3.2-4.5 GM/DL Amylase Level 6 L 25-125 U/L Lipase 19 8-78 U/L Beta-Hydroxybutyrate (Chem panel) 0.12 0.00-0.27 MMOL/L Salicylates Level < 5.0 L 5.0-20.0 MG/DL Acetaminophen Level 26 10-30 UG/ML Serum Alcohol < 10 <10 MG/DL Lactic Acid Level 2.74 *H 0.50-2.00 MMOL/L Glucometer 225 H 70-110 MG/DL Blood Gas Puncture Site RRAD Blood Gas Patient Temperature 36.5 Arterial Blood pH 7.40 7.37-7.43 Arterial Blood Partial Pressure CO2 24 L 35-45 MMHG Arterial Blood Partial Pressure O2 103 H 79-93 MMHG Arterial Blood HCO3 15 *L 23-27 MMOL/L Arterial Blood Total CO2 15.5 L 21.0-31.0 MMOL/L Arterial Blood Oxygen Saturation 99 94-100 % Arterial Blood Base Excess -9.2 L -2.5-2.5 MMOL/L Fred Test YES-POS Blood Gas Ventilator Setting NO Blood Gas Inspired Oxygen RA Test 09/10/22 03:47 09/10/22 05:51 09/10/22 06:30 Range/Units Influenza Type A (RT-PCR) Not Detected Not Detecte Influenza Type B (RT-PCR) Not Detected Not Detecte SARS-CoV-2 RNA (RT-PCR) Not Detected Not Detecte Glucometer 170 H 70-110 MG/DL Lactic Acid Level 1.87 0.50-2.00 MMOL/L Troponin I 0.044 H <0.028 NG/ML (DAVID RAYO MD) My Orders Orders - DAVID RAYO MD Ed Admission (Communication) (09/10/22 07:08) (DAVID RAYO MD) Medications Given in ED Current Medications Medications Dose Ordered Sig/Aracely Route Start Time Stop Time Status Last Admin Dose Admin Ondansetron HCl 4 mg ONCE ONCE IVP 09/10/22 05:45 09/10/22 05:46 DC 09/10/22 06:00 4 MG Pantoprazole 40 mg ONCE ONCE IV 09/10/22 05:45 09/10/22 05:46 DC 09/10/22 06:00 40 MG Piperacillin Sod/ Tazobactam Sod 4.5 gm/Sodium Chloride 100 ml @ 200 mls/hr ONCE ONCE IV 09/10/22 04:15 09/10/22 04:44 DC 09/10/22 04:36 200 MLS/HR Sodium Bicarbonate 50 meq ONCE ONCE IV 09/10/22 04:15 09/10/22 04:16 DC 09/10/22 04:33 50 MEQ Vancomycin HCl 1000 mg/Sodium Chloride 250 ml @ 250 mls/hr ONCE ONCE IV 09/10/22 04:15 09/10/22 05:14 DC 09/10/22 04:35 250 MLS/HR (DAVID RAYO MD) Vital Signs/I&O 09/10/22 03:15 Temp 36.5 Pulse 79 Resp 18 B/P (MAP) 91/62 (72) Pulse Ox 99 O2 Delivery Room Air (DAVID RAYO MD) Vital Signs/I&O Capillary Refill : (WISAM ROUSE DO) Progress Note : Progress Note PPE WORN COVID AND FLU TESTING DONE SEPSIS PROTOCOL INITIATED SON REPORTS THAT PT'S BP WAS 90'S/60'S IN DR. HINSON'S OFFICE ON WEDNESDAY. PT ADAMANTLY REFUSES CATHETER GIVEN: -IV FLUIDS -ANTIBIOTICS -BICARB -ZOFRAN -PROTONIX BP UP TO >100 SYSTOLIC AFTER 2 LITERS OF FLUIDS BLOOD GLUCOSE DOWN TO 170 WITH IV FLUIDS REVIEWED PRIOR RECORDS, INCLUDING ER VISITS, ADMITS, H&P'S, CONSULTS, TESTS/PROCEDURES, AND DISCHARGE SUMMARIES DISCUSSED TEST RESULTS WITH PT AND SON, AND NEED FOR ADMIT, AND PT IS AGREEABLE TO PLAN 0600--CARE TURNED OVER TO DR. RAYO, CT AND LAB PENDING. (WISAM ROUSE DO) Progress Note : Time: 07:06 Progress Note Labs reviewed from prior provider, CTs show no acute abnormalities in the chest abdomen and pelvis. Vital signs remained stable with blood pressure 97/62 which appears to be the patient's baseline on review of prior admissions and ER visits. Heart rate is 79. Patient is sitting up in the bed complaining of pain at the left BKA site. Eating crackers. No acute distress. Case was discussed with Dr. Cassandra Tapia, family practitioner on for [facility]. She accepts the patient for admission to the ICU. She will put in que'ed orders (DAVID RAYO MD) ECG Initial ECG Impression Date: Sep 10, 2022 Initial ECG Impression Time: 04:37 Initial ECG Rate: 80 Initial ECG Rhythm: Normal Sinus (ARTIFACT FROM PT MOVEMENT) Initial ECG Comparisson: Unchanged (NO CHANGE FROM 08/29/22) Comment INTERPRETED BY ME (WISAM ROUSE DO) Diagnostic Imaging Comments CXR--NO ACUTE PROCESS, PENDING RADIOLOGIST REVIEW CT CHEST/ABDOMEN/PELVIS-- Reviewed: Reviewed by Me (WISAM ROUSE DO) Departure Communication (Admissions) Time/Spoke to Admitting Phy: 07:[address] Tapia (FP on for [facility]) (DAVID RAYO MD) Impression Primary Impression: Diabetes mellitus, insulin dependent (IDDM), uncontrolled Additional Impressions: Acute renal failure Acute hepatic failure Dehydration Thrush MULTIPLE BILATERAL AXILLARY ABSCESSES--RECENTLY I&D'D Lactic acidosis Troponin level elevated POSSIBLE SEPSIS HX OF POLYSUBSTANCE ABUSE ANEMIA HX OF GI BLEED DUE TO NSAIDS Disposition: ADMITTED INPATIENT Condition: Stable Admissions Decision to Admit Reason: Admit from ER (General) Decision to Admit/Date: Sep 10, 2022 Time/Decision to Admit Time: 07:07 (DAVID RAYO MD) Departure-Patient Inst. Referrals: BAKARI HINSON DO (PCP/Family) Primary Care Physician WISAM ROUSE DO Sep 10, 2022 03:45 DAVID RAYO MD Sep 10, 2022 07:07
[2022-09-10 03:51] LABS: ALBUMIN 3.3 GM/DL (3.2-4.5); CHLORIDE 108 MMOL/L (98-107); POTASSIUM 3.4 MMOL/L (3.6-5.0); SODIUM 140 MMOL/L (135-145)
[2022-09-10 03:52] LABS: CALCIUM 9.3 MG/DL (8.5-10.1)
[2022-09-10 03:53] LABS: GLUCOSE 224 MG/DL (70-105); INR 2.5 (0.8-1.4); PROTHROMBIN TIME PATIENT 27.7 SEC (12.2-14.7)
[2022-09-10 03:54] LABS: CARBON DIOXIDE 14 MMOL/L (21-32)
[2022-09-10 03:55] LABS: BILIRUBIN,TOTAL 0.8 MG/DL (0.1-1.0)
[2022-09-10 03:57] LABS: ALKALINE PHOSPHATASE 243 U/L (40-136); CREATININE SERUM 2.33 MG/DL (0.60-1.30); GFR ESTIMATED 30
[2022-09-10 03:57] LABS: ABG BASE EXCESS -9.2 MMOL/L (-2.5-2.5); ABG OXYGEN SATURATION 99 % (94-100); ABG PCO2 24 MMHG (35-45); ABG PO2 103 MMHG (79-93); ABG TCO2 15.5 MMOL/L (21.0-31.0)
[2022-09-10 03:58] LABS: BUN/CREATININE RATIO 21
[2022-09-10 04:00] LABS: ALANINE AMINOTRANSFERASE 2184 U/L (0-55)
[2022-09-10 04:00] LABS: ALLENS TEST YES-POS; INSPIRED O2 RA; PATIENT TEMP 36.5; VENTILATOR NO
[2022-09-10 04:01] LABS: MAGNESIUM 2.5 MG/DL (1.6-2.4)
[2022-09-10 04:02] LABS: LIPASE 19 U/L (8-78)
[2022-09-10 04:10] LABS: ANISOCYTOSIS SLIGHT; BAND NEUTROPHILS 0 %; BASOPHILS % (MANUAL) 0 %; CRENATED RBC SLIGHT; EOSINOPHILS % (MANUAL) 1 %; HYPOCHROMASIA MODERATE; LYMPHOCYTES % (MANUAL) 11 %; MONOCYTES % (MANUAL) 4 %; NEUTROPHILS % (MANUAL) 84 %; POIKILOCYTOSIS SLIGHT; POLYCHROMASIA SLIGHT
[2022-09-10] MEDS ORDERED: PIPERACILLIN SODIUM/TAZOBACTAM 4.5 GM in NS (IVPB) 100 ML IV ONE (04:15)
[2022-09-10] MEDS ORDERED: VANCOMYCIN INJECTION 1,000 MG in NS (IVPB) 250 ML IV ONE (04:15)
[2022-09-10] MEDS ORDERED: SODIUM BICARB 8.4% 50 MEQ/50 ML (ABBOTT) SYR IV ONE (04:15)
[2022-09-10 04:18] LABS: AMYLASE 6 U/L (25-125)
[2022-09-10 04:25] LABS: ACETAMINOPHEN 26 UG/ML (10-30); SALICYLATE < 5.0 MG/DL (5.0-20.0)
[2022-09-10] MEDS ORDERED: PANTOPRAZOLE 40 MG (PROTONIX) VIAL IV ONE (05:45)
[2022-09-10] MEDS ORDERED: ONDANSETRON 4 MG/2 ML (SDV) Z0FRAN IVP ONE (05:45)
--- NOTE | 2022-09-10 06:48 | Diagnostic Imaging Report ---
INDICATION: Dyspnea. Comparison is made with prior exam of 08/29/2022 FINDINGS: The heart size, mediastinal configuration, and pulmonary vascularity are within normal limits. There is no pleural effusion, pneumothorax, or pneumonia. The osseous structures are unremarkable. IMPRESSION: No acute cardiopulmonary abnormality. Dictated by: Dictated on workstation # [id number]
--- NOTE | 2022-09-10 06:50 | Diagnostic Imaging Report ---
PROCEDURE: CT chest, abdomen, and pelvis without contrast. TECHNIQUE: Multiple contiguous axial images were obtained through the chest, abdomen, and pelvis without the use of intravenous contrast. Auto Exposure Controls were utilized during the CT exam to meet ALARA standards for radiation dose reduction. INDICATION: Hypotension, elevated LFTs and diabetic ketoacidosis. FINDINGS: There are some patchy groundglass infiltrates in the right middle lobe. There is no pleural or pericardial fluid. There is no pneumothorax. Heart size is normal. There are coronary artery calcifications. The thoracic aorta is normal in caliber. There is no no pathologically enlarged adenopathy in the chest. There is cholelithiasis. Remainder of intra-abdominal structures are unremarkable. IMPRESSION: Patchy groundglass infiltrates in right upper lobe suspect for atypical pneumonia. Coronary artery calcification. Cholelithiasis No other acute cardiopulmonary abnormality. Dictated by: Dictated on workstation # [id number]
--- NOTE | 2022-09-10 07:10 | History & Physical-Hospitalist ---
History of Present Illness HPI/Chief Complaint CC: Severe sepsis HPI: This is a 67yoWM clinic patient of [facility] well known to this examiner due to multiple hospital stays per month for DKA who presents to the ER with weakness found to have severe sepsis due to PNA. No evidence of DKA and he is eating and drinking. He lives at home but due to multiple admits he is willing to entertain dc to [place]. IV abx initiated and pressor therapy initiated for low BP s/p 3 liters of fluid in ER. Source: patient, RN/MD, old records Exam Limitations: clinical condition Date Seen 09/10/22 Time Seen by a Provider: 11:00 Attending Physician Roberto Carlos Perez DO PCP Admitting Physician: Attending Physician: Referring Physician Date of Admission Home Medications & Allergies Home Medications Reviewed patient Home Medication Reconciliation performed by pharmacy medication reconciliations wastewater technician and/or nursing. Patients Allergies have been reviewed. Allergies Allergies Coded Allergies No Known Drug Allergies (Trotvjfpdg22/5/11) Past [place]ont-Ddktvg-Tskgxk Hx Patient Social History Marrital Status: single Employed/Student: unemployed Tobacco Use?: Yes Tobacco type used: Cigarettes Smoking Status: Current Everyday Smoker Use of E-Cig and/or Vaping dev: No Substance use?: Yes Substance type: Amphetamines, Methamphetamine, Opiates/Opioids, Misuse of prescript meds, Other Additional substance use comme: OVERDOSED 10/2020 Substance frequency: Daily Alcohol Use?: Yes Alcohol type: Hard Liquor Additional alcohol type: FORMER ALCOHOLIC. QUIT 08/27/22. Alcohol Frequency: Daily Immunizations Up To Date Date of Influenza Vaccine: Apr 28, 2021 First/Initial COVID19 Vaccinat: 01/20/2021 Second COVID19 Vaccination Dylan: 02/20/2021 Current Status Advance Directives: No Communicates: Verbally Primary Language: Tanzanian Preferred Spoken Language: Tanzanian Is interpretation needed?: No Past Medical History Surgeries: Amputation, Orthopedic Currently Using CPAP: No Currently Using BIPAP: No High Cholesterol, Hypertension Neuropathy Gastrointestinal Bleed, Ulcer Amputee Diabetes, Insulin dep Blood Disorders: No PMHx: IDDM PVD SurgHx: Left foot amputation 1981 Left BKA Inguinal hernia repair Cardiac stent Family Medical History No Pertinent Family Hx SOCIAL HISTORY: -SMOKES 1 PPD SINCE AGE 10 -ETOH--DRINKS A PINT OF HARD LIQUOR A DAY ALL OF HIS LIFE -DRUGS--HX OF OPIATE ABUSE /OVERDOSE, HAS BEEN ON METHADONE IN PAST WELL CHRONIC OPIATE USE PT STATES HE HAS "USED ALL OF THEM" , WITH EXTENSIVE IV DRUG USE. STATES HIS DRUG OF CHOICE HAS BEEN METHAMPHETAMINES, CLAIMS NONE X 2 YEARS, PER PT ON 09/10/22 HAD LEFT BKA DONE DUE TO OSTEOMYELITIS WITH SEPTIC SHOCK AND DKA. Review of Systems Constitutional: see HPI, dizziness, malaise, weakness EENTM: no symptoms reported Respiratory: no symptoms reported Cardiovascular: no symptoms reported Gastrointestinal: no symptoms reported Genitourinary: no symptoms reported Musculoskeletal: back pain Skin: no symptoms reported Psychiatric/Neurological: Anxiety, Depressed All Other Systems Reviewed Negative Unless Noted: Yes Physical Exam Physical Exam Vital Signs Vital Signs - First Documented 09/10/22 03:15 Temp 36.5 Pulse 79 Resp 18 B/P (MAP) 91/62 (72) Pulse Ox 99 O2 Delivery Room Air Capillary Refill : Less Than 3 Seconds Height, Weight, BMI Height: '" Weight: lbs. oz. kg; 18.00 BMI Method:Estimated General Appearance: No Apparent Distress, Anxious, Chronically ill, Thin Eyes: Right Eye Normal Inspection, Right Eye PERRL HEENT: PERRL/EOMI, Normal ENT Inspection, Pharynx Normal, Moist Mucous Membranes Neck: Full Range of Motion, Normal Inspection, Non Tender Respiratory: Chest Non Tender, Lungs Clear, Normal Breath Sounds, No Accessory Muscle Use, No Respiratory Distress Cardiovascular: No Edema, No Gallop, No JVD, No Murmur, Normal Peripheral Pulses, Tachycardia Gastrointestinal: Normal Bowel Sounds, No Organomegaly, No Pulsatile Mass, Non Tender, Soft Back: Normal Inspection, No CVA Tenderness, No Vertebral Tenderness Extremity: Normal Capillary Refill, Normal Inspection, Normal Range of Motion, Non Tender, No Calf Tenderness, No Pedal Edema Neurologic/Psychiatric: Alert, Oriented x3, No Motor/Sensory Deficits, Normal Mood/Affect Skin: Normal Color, Warm/Dry Lymphatic: No Adenopathy Results Results/Procedures Labs Laboratory Tests 09/10/22 03:31 09/10/22 10:38 Patient resulted labs reviewed. Assessment/Plan Admission Diagnosis Assess & Plan/Chief Complaint Severe sepsis PNA Hyperlipidemia Hx of Peptic Ulcer Disease Hx of GI Bleed Debility/Weakness KAIT Plan: ICU IVF IV abx Pressors Monitor hgb Admission Status: Inpatient Order (span 2 midnights) Reason for Inpatient Admission: sepsis Diagnosis/Problems Diagnosis/Problems (1) Severe sepsis (2) Pneumonia CHIP TAPIA DO Sep 10, 2022 07:10
[2022-09-10] MEDS ORDERED: diphenhydrAMINE 50 MG/ML INJ (BENADRYL) IVP PRN (07:45)
[2022-09-10] MEDS ORDERED: BISACODYL 10 MG SUPP (DULCOLAX) PR PRN (07:45)
[2022-09-10] MEDS ORDERED: polyethylene glycoL POWDER 17 GM (MIRALAX) PACK PO PRN (07:45)
[2022-09-10] MEDS ORDERED: diphenhydrAMINE 25 MG TAB (BENADRYL) PO PRN (07:45)
[2022-09-10] MEDS ORDERED: VANCOMYCIN INJECTION 0.1 MG in NS (IVPB) 250 ML IV SCH (07:45)
[2022-09-10] MEDS ORDERED: ONDANSETRON 4 MG/2 ML (SDV) Z0FRAN IV PRN (07:45)
[2022-09-10] MEDS ORDERED: HYDROmorphone 2 MG/ML VIAL (DILAUDID) IV PRN (07:45)
[2022-09-10] MEDS ORDERED: ONDANSETRON 4 MG (ZOFRAN) ORAL DISSOLVE TAB PO PRN (07:45)
[2022-09-10] MEDS ORDERED: LACTULOSE SYRUP 10GM/15ML (ENULOSE) 30ML UDC PO PRN (07:45)
[2022-09-10] MEDS ORDERED: CALCIUM CARBONATE 500 MG (TUMS) TAB.CHEW PO PRN (07:45)
[2022-09-10] MEDS ORDERED: NS IV 500 ML 500 ML IV PRN (07:45)
[2022-09-10] MEDS ORDERED: MILK OF MAGNESIA 400 MG/5 ML 30 ML UDC PO PRN (07:45)
[2022-09-10] MEDS ORDERED: ANTACID SUSP 30 ML UDC (MYLANTA) PO PRN (07:45)
[2022-09-10] MEDS ORDERED: MELATONIN 3 MG TABLET PO PRN (07:45)
[2022-09-10] MEDS: NS IV 1000 ML 1,000 ML IV SCH ×3 (08:44→23:45)
[2022-09-10] MEDS: SENNOSIDES 8.6 MG (SENOKOT) TAB PO SCH ×2 (08:44→20:20)
[2022-09-10] MEDS: DOCUSATE SODIUM 100 MG (COLACE) CAP PO SCH ×2 (08:44→20:19)
[2022-09-10] MEDS: PANTOPRAZOLE 40 MG (PROTONIX) TAB PO SCH (08:44)
[2022-09-10] MEDS: NOREPINEPHRINE 8 MG/250 ML 250 ML IV SCH ×2 (08:45→09:06)
[2022-09-10 10:19] VITALS: BP 70/63
[2022-09-10] MEDS ORDERED: RT-ALBUTEROL SULF 2.5 MG/3 ML PRE-MIX VIAL INH PRN (10:30)
--- NOTE | 2022-09-10 10:37 | Tele-ICU Consult ---
History of Present Illness History of Present Illness Date Seen by Provider: Sep 10, 2022 Time Seen by Provider: 10:36 History of Present Illness (Tele-ICU Physician , consultation as per request of PCP Service provided via interactive audio and video telecommunications E-CARE system to a patient admitted to ICU bed in [facility]. Available chart/ vitals / labs / Images reviewed H&P is from ER notes Patient's information available about PMH, Shx, Fhx allergy reviewed inEMR. ROS as per chart and RN report Now in ICU, hemodynamically stable Video assessment done using teleICU camera, rest of exam as per RN Discussed with RN. Hospital course: 03-16: 67 y/o M - ^BS, N/V - Hypotension 3LNS ( Recent hosp (08/27-08/31)for DKA - (09/04) I&D's Axillary Abscesses. A/P Hypotension. shock - septic suspected - given 3 L NS - started on pressors - LEVO - cont resuscitation , lactate is improving - cont abx Suspected infection - suspected soft tissue ( exam and more story as per bedside MD ) - started onb zosyn / vanco - s/p ER visit 09/04/22 - MULTIPLE BILATERAL AXILLARY ABSCESSES, AND HAD MULTIPLE I&D'S--placed on Bactrim - ? finished - CT chest / abd pel - with minimal infiltrate -CTabd/p - Cholelithiasis- follow KAIT - not voided and refused campos , need scan bladder - ? truly anuric - cont IVF ns 125 --CTabd/p - no hydro reported - add bicarb gtt and follow with BMP and UO Hyperglycemia, poorly controlled DM - not in DKA, but had recurrent/?chronic NAGMA- ? etiology , ETON ? - ISS Elv LVT - not cleat etilology - on tylenol for rick - 6-7 times a dsu , tylenol level 26 , but ? chronic damage . 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 Discussed with RN to reach out if any questions or concerns A total of 33 minutes of critical care time was devoted to this patient today, required to treat and/or prevent further deterioration of critical care c ondition ( as above ) . I am remotely monitoring this patient from another state. I am unable to do the bedside exam, and history/physical and pertinent information is taken from other notes in the computer and bedside staff. . Allergies and Home Medications Allergies Coded Allergies: No Known Drug Allergies (Unverified , 05/02/11) Home Medications Acetaminophen 500 Mg Tablet, 2,000 MG PO Q6H PRN for PAIN-MILD (1-4), (Reported) TAKES 4 (500MG) TABS Dulaglutide 4.5 Mg/0.5 Ml Pen.injctr, 4.5 MG SQ WED, (Reported) Folic Acid 1 Mg Tablet, 1 MG PO DAILY, (Reported) Gabapentin 600 Mg Tablet, 600 MG PO TID, (Reported) Insulin Detemir 100 Unit/Ml (3 Ml) Insuln.pen, 8 UNIT SQ BID Prescribed by: CHIP TAPIA on 08/31/22 1048 Multivitamin/Iron/Folic Acid 18 Mg Iron-400 Mcg Tablet, 1 EACH PO DAILY, (Reported) Nystatin 100,000 Unit/Ml Oral.susp, 5 ML PO QID Prescribed by: CHIP TAPIA on 08/31/22 1048 Oxycodone Hcl 5 Mg Tab, 5 MG PO PRN PRN for PAIN-SEE DOSE INSTRUCTIONS Prescribed by: CHIP TAPIA on 08/31/22 1048 Pantoprazole Sodium 40 Mg Tablet.dr, 40 MG PO BID, (Reported) Sodium Bicarbonate 650 Mg Tablet, 650 MG PO TID Prescribed by: CHIP TAPIA on 08/31/22 1048 Sucralfate 1 Gram Tablet, 1 GM PO ACHS, (Reported) Sulfamethoxazole/Trimethoprim 1 Each Tablet, 1 EACH PO BID Prescribed by: CRIS LATIF on 09/04/22 1028 Thiamine HCl 100 Mg Tablet, 100 MG PO DAILY, (Reported) Past Medical/Social/Family Hx Patient Social History Tobacco Use?: Yes Tobacco type used: Cigarettes Smoking Status: Current Everyday Smoker Smokeless Tobacco Frequency: Current Everyday User Use of E-Cig and/or Vaping dev: No Substance use?: No Substance type: Amphetamines, Methamphetamine, Opiates/Opioids, Misuse of prescript meds, Other OVERDOSED 10/2020 Substance frequency: Daily Alcohol Use?: No Alcohol type: Hard Liquor Additional alcohol type: FORMER ALCOHOLIC. QUIT 08/27/22. Alcohol Frequency: Daily Pt stated abuse/neglect: No Immunizations Up To Date Influenza Vaccine Up-to-Date: Yes; Up-to-Date First/Initial COVID19 Vaccinat: 01/20/2021 Second COVID19 Vaccination Dylan: 02/20/2021 Current Status Advance Directives: No Communicates: Verbally Primary Language: Chinese Preferred Spoken Language: Chinese Is interpretation needed?: No Sensory deficits: Vision impairment Implanted or Applied Medical D: Stents Past Medical History PMHx: IDDM PVD SurgHx: Left foot amputation 1981 Left BKA Inguinal hernia repair Cardiac stent Family Medical History Family Hx: SOCIAL HISTORY: -SMOKES 1 PPD SINCE AGE 10 -ETOH--DRINKS A PINT OF HARD LIQUOR A DAY ALL OF HIS LIFE -DRUGS--HX OF OPIATE ABUSE /OVERDOSE, HAS BEEN ON METHADONE IN PAST WELL CHRONIC OPIATE USE PT STATES HE HAS "USED ALL OF THEM" , WITH EXTENSIVE IV DRUG USE. STATES HIS DRUG OF CHOICE HAS BEEN METHAMPHETAMINES, CLAIMS NONE X 2 YEARS, PER PT ON 09/10/22 HAD LEFT BKA DONE DUE TO OSTEOMYELITIS WITH SEPTIC SHOCK AND DKA. Review of Systems Constitutional: see HPI Focused Exam Sepsis Stage: Septic Shock Lactate Level 09/10/22 03:35: Lactic Acid Level 2.74*H 09/10/22 06:30: Lactic Acid Level 1.87 Height, Weight, BMI Height: '" Weight: lbs. oz. kg; 18.81 BMI Method:Estimated Time of Focused Exam: 05:00 Within 3hrs of presentation: Admin 30ml/kg IBW due to BMI>30, Admin ABX, Blood cultures prior to ABX's, Focus exam, Lactate level Exam Exam Patient acknowledged, consented, and participated in this virtual visit which was conducted using real time audio/video Vital Signs Date Time Temp Pulse Resp B/P (MAP) Pulse Ox O2 Delivery O2 Flow Rate FiO2 09/10/22 10:19 36.0 87 100 09/10/22 09:06 70/63 09/10/22 08:55 101/85 (90) Room Air 09/10/22 08:30 89 09/10/22 07:49 36.0 Room Air 09/10/22 07:44 87 18 92/59 100 Room Air 09/10/22 03:15 36.5 79 18 91/62 (72) 99 Room Air I & O 09/10/22 07:00 Intake Total 2350 ml Balance 2350 ml Height & Weight Height: '" Weight: lbs. oz. kg; 18.81 BMI Method:Estimated General Appearance: No Apparent Distress, Chronically ill, Thin, Other (SOMEWHAT LETHARGIC. UNKEMPT) HEENT: PERRL/EOMI, Other (EDENTULOUS. THRUSH PRESENT ON TONGUE, AND ORAL MUCOSA IS VERY DRY AND TONGUE IS VERY FISSURED. ) Neck: Normal Inspection Respiratory: Normal Breath Sounds, No Accessory Muscle Use, No Respiratory Distress Cardiovascular: Regular Rate, Rhythm, No Murmur Capillary Refill: Less Than 3 Seconds Extremity: No Pedal Edema, Other (LEFT BKA STUMP WITH SCABBED WOUND, WITHOUT SIGNS OF ABSCESS OR INFECTION. BILATERAL AXILLA WITH MULTIPLE SMALL ABSCESSES--ALL LESS THAN 1 CM, MILDLY INFLAMED, SOME STILL DRAINING A SCANT AMOUNT OF PURULENT MATERIAL. 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 ABSCESSES NOTED ABOVE. ) Results Lab Laboratory Tests 09/10/22 03:31 Assessment/Plan Assessment/Plan 1 LAURA PRITCHARD MD Sep 10, 2022 10:37
[2022-09-10 10:59] LABS: POTASSIUM 3.9 MMOL/L (3.6-5.0)
[2022-09-10 11:00] LABS: CALCIUM 7.8 MG/DL (8.5-10.1)
[2022-09-10 11:05] LABS: CREATININE SERUM 1.47 MG/DL (0.60-1.30)
[2022-09-10] MEDS: SODIUM BICARBONATE 8.4% VIAL 75 MEQ in 1/2 NS IV SOLUTION 1,000 ML IV SCH (11:13)
[2022-09-10] MEDS: PIPERACILLIN SODIUM/TAZOBACTAM 4.5 GM in NS (IVPB) 100 ML IV SCH ×2 (11:37→19:35)
[2022-09-10] MEDS: inSUlin ASPART (NovoLOG) 1 UNIT/0.01 ML (CHARGE PER UNIT) SC SCH ×3 (11:38→20:42)
[2022-09-10] MEDS ORDERED: CATHETER FLUSH 10 ML SYR IVP PRN (12:45)
[2022-09-10 13:10] LABS: HEPATITIS C ANTIBODY C Non-Reactive (Non-Reactive)
[2022-09-10] MEDS: NICOTINE 14 MG (NICODERM) PATCH TD SCH (14:17)
[2022-09-10] MEDS: aCETylcysteine 20% (MUCOMYST) 4 ML SOLN VIAL PO SCH ×2 (15:16→21:07)
[2022-09-10] MEDS ORDERED: SUCR1ORA15 PO (15:42)
[2022-09-10] MEDS ORDERED: INSU100V16 SQ (15:42)
[2022-09-10] MEDS ORDERED: INSU100V5 SQ (15:42)
[2022-09-10] MEDS ORDERED: INSU100I88 SC (15:42)
[2022-09-10] MEDS ORDERED: SULF473O9 PO (15:45)
[2022-09-10 15:59] LABS: BILIRUBIN,URINE NEGATIVE (NEGATIVE); CLARITY,URINE CLEAR; COLOR,URINE YELLOW; GLUCOSE, URINE (UA) TRACE (NEGATIVE); KETONES,URINE NEGATIVE (NEGATIVE); LEUKOCYTE ESTERASE ,URINE NEGATIVE (NEGATIVE); NITRITE,URINE NEGATIVE (NEGATIVE); PH,URINE 6.5 (5-9); PROTEIN,URINE TRACE (NEGATIVE)
[2022-09-10 16:06] LABS: BACTERIA,URINE NEGATIVE /HPF; HYALINE CASTS, URINE RARE /LPF; SQUAMOUS EPITHELIAL CELL,UR 0-2 /HPF; WBC,URINE 0-2 /HPF
[2022-09-10 16:10] LABS: AMPHETAMINE SCREEN, URINE NEGATIVE (NEGATIVE); BARBITURATE SCREEN URINE NEGATIVE (NEGATIVE); BENZODIAZEPINES SCREEN URINE POSITIVE (NEGATIVE); CANNABINOID SCREEN, URINE NEGATIVE (NEGATIVE); COCAINE SCREEN URINE NEGATIVE (NEGATIVE); METHADONE STAT NEGATIVE (NEGATIVE); OPIATE SCREEN URINE NEGATIVE (NEGATIVE); OXYCODONE STAT NEGATIVE (NEGATIVE); PROPOXYPHENE STAT NEGATIVE (NEGATIVE); TRICYCLIC ANTIDEPRESSANTS SCRE NEGATIVE (NEGATIVE)
[2022-09-11] MEDS: SODIUM BICARBONATE 8.4% VIAL 75 MEQ in 1/2 NS IV SOLUTION 1,000 ML IV SCH ×3 (00:44→23:18)
[2022-09-11] MEDS: PIPERACILLIN SODIUM/TAZOBACTAM 4.5 GM in NS (IVPB) 100 ML IV SCH ×3 (04:15→19:37)
[2022-09-11] MEDS: VANCOMYCIN 750 MG/NS 250 ML IVPB IV SCH ×2 (04:15)
[2022-09-11 04:32] LABS: BASOPHILS % (AUTO) 0 % (0-10); EOSINOPHILS # (AUTO) 0.1 10^3/uL (0.0-0.3); EOSINOPHILS % (AUTO) 2 % (0-10); HEMATOCRIT 22 % (40-54); HEMOGLOBIN 7.6 g/dL (13.3-17.7); LYMPHOCYTES # (AUTO) 1.2 10^3/uL (1.0-4.0); LYMPHOCYTES % (AUTO) 15 % (12-44); MEAN CORPUSCULAR HEMOGLOBIN 32 pg (25-34); MEAN CORPUSCULAR HGB CONC 34 g/dL (32-36); MEAN CORPUSCULAR VOLUME 93 fL (80-99); MEAN PLATELET VOLUME 10.2 fL (9.0-12.2); MONOCYTES # (AUTO) 0.3 10^3/uL (0.0-1.0); MONOCYTES % (AUTO) 3 % (0-12); NEUTROPHILS # (AUTO) 6.6 10^3/uL (1.8-7.8); NEUTROPHILS % (AUTO) 80 % (42-75); PLATELET COUNT 282 10^3/uL (130-400); WHITE BLOOD COUNT 8.3 10^3/uL (4.3-11.0)
[2022-09-11 05:01] LABS: ALBUMIN 2.5 GM/DL (3.2-4.5); POTASSIUM 3.8 MMOL/L (3.6-5.0)
[2022-09-11 05:02] LABS: CALCIUM 7.8 MG/DL (8.5-10.1)
[2022-09-11 05:03] LABS: TOTAL PROTEIN 5.2 GM/DL (6.4-8.2)
[2022-09-11 05:06] LABS: PHOSPHORUS 1.6 MG/DL (2.3-4.7)
[2022-09-11 05:07] LABS: CREATININE SERUM 0.86 MG/DL (0.60-1.30)
[2022-09-11 05:10] LABS: MAGNESIUM 1.5 MG/DL (1.6-2.4)
[2022-09-11] MEDS: POTASSIUM CL 10MEQ/50ML IVPB 50 ML IV SCH (05:21)
[2022-09-11] MEDS: KCL 20 MEQ TAB (K-DUR) PO SCH (05:21)
[2022-09-11] MEDS: MAGNESIUM 1 GM/100 ML IVPB 100 ML IV SCH ×4 (06:20→08:22)
[2022-09-11] MEDS: inSUlin ASPART (NovoLOG) 1 UNIT/0.01 ML (CHARGE PER UNIT) SC SCH ×4 (06:21→21:10)
[2022-09-11 06:44] LABS: ABG BASE EXCESS -6.7 MMOL/L (-2.5-2.5); ABG OXYGEN SATURATION 70 % (94-100); ABG PCO2 29 MMHG (35-45); ABG TCO2 18.2 MMOL/L (21.0-31.0)
--- NOTE | 2022-09-11 06:44 | Diagnostic Imaging Report ---
INDICATION: Lower respiratory infection Portable chest 3:40 AM Right upper extremity PICC line tip projects over the SVC. Heart size and pulmonary vascularity are normal. Lungs are clear. There are no effusions or pneumothoraces. IMPRESSION: No acute abnormalities in the chest. Dictated by: Dictated on workstation # [id number]
[2022-09-11 06:45] LABS: ALLENS TEST YES-POS; INSPIRED O2 RA; PATIENT TEMP 36.6; VENTILATOR NO
[2022-09-11 06:46] LABS: ABG PO2 38 MMHG (79-93)
[2022-09-11] MEDS ORDERED: POTASSIUM PHOSPHATE INJ 15 MM in NS (IVPB) 250 ML IV ONE (08:00)
[2022-09-11] MEDS: PANTOPRAZOLE 40 MG (PROTONIX) TAB PO SCH (08:21)
[2022-09-11] MEDS: NICOTINE 14 MG (NICODERM) PATCH TD SCH (08:22)
[2022-09-11] MEDS: SENNOSIDES 8.6 MG (SENOKOT) TAB PO SCH ×2 (08:23→21:03)
[2022-09-11] MEDS: DOCUSATE SODIUM 100 MG (COLACE) CAP PO SCH ×2 (08:23→21:03)
--- NOTE | 2022-09-11 08:53 | Tele-ICU Progress Note ---
Subjective Date Seen by a Provider: Sep 11, 2022 Time Seen by a Provider: 08:48 Subjective/Events-last exam Available chart/ vitals / labs / Images reviewed H&P is from ER notes Patient's information available about PMH, Shx, Fhx allergy reviewed inEMR. ROS as per chart and RN report Now in ICU, hemodynamically stable Video assessment done using teleICU camera, rest of exam as per RN Discussed with RN. Hospital course: 03-16: 67 y/o M - ^BS, N/V - Hypotension 3LNS ( Recent hosp (08/27-08/31)for DKA - (09/04) I&D's Axillary Abscesses. ABG today7.40 almost certainly venous, SpO2 on monitor 98% Remains on IV Levophed @ 0.01 with BP 101/64, will try to wean off A/P Hypotension. shock - septic suspected - given 3 L NS - started on pressors - LEVO - cont resuscitation , lactate is improving - cont abx Suspected infection - suspected soft tissue ( exam and more story as per bedside MD ) - started onb zosyn / vanco - s/p ER visit 09/04/22 - MULTIPLE BILATERAL AXILLARY ABSCESSES, AND HAD MUL TIPLE I&D'S--placed on Bactrim - ? finished - CT chest / abd pel - with minimal infiltrate -CTabd/p - Cholelithiasis- follow Sepsis Event Evaluation Height, Weight, BMI Height: '" Weight: lbs. oz. kg; 19.52 BMI Method:Estimated Focused Exam Lactate Level 09/10/22 03:35: Lactic Acid Level 2.74*H 09/10/22 06:30: Lactic Acid Level 1.87 Time of Focused Exam: 05:00 Exam Exam Patient acknowledged, consented, and participated in this virtual visit which was conducted using real time audio/video Vital Signs Date Time Temp Pulse Resp B/P (MAP) Pulse Ox O2 Delivery O2 Flow Rate FiO2 09/11/22 08:02 100 Room Air 09/11/22 08:00 19 104/67 (79) 100 Room Air 09/11/22 08:00 36.3 09/11/22 07:00 107 09/11/22 07:00 69 12 93/61 (70) 100 Room Air 09/11/22 06:00 78 107/76 (86) 100 Room Air 09/11/22 05:00 69 92/60 (71) 100 Room Air 09/11/22 04:00 100 Room Air 09/11/22 04:00 84 94/53 (67) 100 Room Air 09/11/22 03:57 36.6 09/11/22 03:00 75 115/72 (86) 100 Room Air 09/11/22 02:00 84 106/60 (75) 100 Room Air 09/11/22 02:00 36.5 09/11/22 01:00 80 09/11/22 01:00 89 12 106/63 (77) 100 Room Air 09/11/22 00:02 36.0 09/11/22 00:00 69 24 118/89 (99) 100 Room Air 09/10/22 23:59 100 Room Air 09/10/22 23:00 92 14 103/83 (90) 100 Room Air 09/10/22 22:00 71 11 118/70 (86) 100 Room Air 09/10/22 21:00 69 12 111/69 (83) 100 Room Air 09/10/22 20:45 67 103/63 09/10/22 19:49 100 Room Air 09/10/22 19:47 36.9 66 10 107/62 (77) 100 Room Air 09/10/22 19:00 75 13 102/57 (72) 100 Room Air 09/10/22 19:00 75 09/10/22 18:00 77 17 99/56 (70) 100 Room Air 09/10/22 17:36 36.3 09/10/22 17:00 76 17 101/57 (72) 100 Room Air 09/10/22 16:00 84 18 115/84 (94) 100 Room Air 09/10/22 15:40 Room Air 09/10/22 15:00 73 12 112/56 (74) 100 09/10/22 14:00 75 14 90/57 (68) 100 Room Air 09/10/22 13:00 70 16 90/53 (65) 100 Room Air 09/10/22 13:00 71 09/10/22 12:05 Room Air 09/10/22 12:00 73 11 97/56 (70) 100 Room Air 09/10/22 11:22 36.2 3/16/23 11:00 87 11 89/68 (75) 99 Room Air 09/10/22 10:19 36.0 87 100 09/10/22 10:00 75 28 91/63 (72) 100 Room Air 09/10/22 09:06 70/63 09/10/22 09:00 87 6 113/64 (80) 100 Room Air 09/10/22 08:55 101/85 (90) Room Air 09/10/22 08:53 84 30 101/85 (90) 100 Room Air I & O 09/11/22 07:00 Intake Total 4108 ml Output Total 2150 ml Balance 1958 ml Height & Weight Height: '" Weight: lbs. oz. kg; 19.52 BMI Method:Estimated General Appearance: No Apparent Distress, Anxious, Chronically ill, Thin HEENT: PERRL/EOMI, Normal ENT Inspection, Pharynx Normal, Moist Mucous Membranes Neck: Full Range of Motion, Normal Inspection, Non Tender Respiratory: Chest Non Tender, Lungs Clear, Normal Breath Sounds, No Accessory Muscle Use, No Respiratory Distress Cardiovascular: Regular Rate, Rhythm, No Edema, No Gallop, No JVD, No Murmur, Normal Peripheral Pulses, Tachycardia Capillary Refill: Less Than 3 Seconds Gastrointestinal: normal bowel sounds, non tender Extremity: Normal Capillary Refill, Normal Inspection, Normal Range of Motion, Non Tender, No Calf Tenderness, No Pedal Edema Neurologic/Psychiatric: Alert, Oriented x3, No Motor/Sensory Deficits, Normal Mood/Affect Skin: Normal Color, Warm/Dry Lymphatic: No Adenopathy Results Lab Laboratory Tests 09/10/22 03:31 09/10/22 10:38 09/11/22 04:16 Assessment/Plan Assessment/Plan Septic shock from axillary abscess will continue IV Vanco and Zosyn Will try to wean off pressors UO has been low but Cr is improved form 1.47 to 0.86 Has mild conagulapathy INR 2.5 PT 27, not on OAC No active bleeding but Hb dropped from to 7.6 from 9.9, if < 7 will transfuse Critical Care: Critically Ill Patient Time spent with patient (mins): 25 DARSHAN HERNANDEZ MD Sep 11, 2022 08:53
[2022-09-11] MEDS ORDERED: NICOTINE 14 MG (NICODERM) PATCH TD SCH (09:00)
[2022-09-11] MEDS: NS IV 1000 ML 1,000 ML IV SCH ×3 (09:32→23:18)
[2022-09-12] MEDS: PIPERACILLIN SODIUM/TAZOBACTAM 4.5 GM in NS (IVPB) 100 ML IV SCH ×3 (03:19→19:21)
[2022-09-12 04:22] LABS: BASOPHILS % (AUTO) 0 % (0-10); EOSINOPHILS # (AUTO) 0.2 10^3/uL (0.0-0.3); EOSINOPHILS % (AUTO) 2 % (0-10); HEMATOCRIT 23 % (40-54); HEMOGLOBIN 8.1 g/dL (13.3-17.7); LYMPHOCYTES # (AUTO) 1.5 10^3/uL (1.0-4.0); LYMPHOCYTES % (AUTO) 19 % (12-44); MEAN CORPUSCULAR HEMOGLOBIN 32 pg (25-34); MEAN CORPUSCULAR HGB CONC 35 g/dL (32-36); MEAN CORPUSCULAR VOLUME 93 fL (80-99); MEAN PLATELET VOLUME 10.4 fL (9.0-12.2); MONOCYTES # (AUTO) 0.4 10^3/uL (0.0-1.0); MONOCYTES % (AUTO) 5 % (0-12); NEUTROPHILS # (AUTO) 6.1 10^3/uL (1.8-7.8); NEUTROPHILS % (AUTO) 74 % (42-75); PLATELET COUNT 300 10^3/uL (130-400); WHITE BLOOD COUNT 8.2 10^3/uL (4.3-11.0)
[2022-09-12 04:24] LABS: ALBUMIN 2.6 GM/DL (3.2-4.5); BILIRUBIN,TOTAL 1.2 MG/DL (0.1-1.0); CALCIUM 8.4 MG/DL (8.5-10.1); CREATININE SERUM 0.84 MG/DL (0.60-1.30); MAGNESIUM 1.8 MG/DL (1.6-2.4); POTASSIUM 3.9 MMOL/L (3.6-5.0); TOTAL PROTEIN 5.6 GM/DL (6.4-8.2)
[2022-09-12] MEDS: POTASSIUM CL 10MEQ/50ML IVPB 50 ML IV SCH (04:31)
[2022-09-12] MEDS: KCL 20 MEQ TAB (K-DUR) PO SCH (04:31)
[2022-09-12] MEDS: MAGNESIUM 1 GM/100 ML IVPB 100 ML IV SCH ×3 (04:31→07:02)
[2022-09-12] MEDS ORDERED: KCL 20 MEQ TAB (K-DUR) PO ONE ×2 (04:46→08:00)
[2022-09-12] MEDS: VANCOMYCIN 750 MG/NS 250 ML IVPB IV SCH ×2 (04:50)
[2022-09-12] MEDS: inSUlin ASPART (NovoLOG) 1 UNIT/0.01 ML (CHARGE PER UNIT) SC SCH ×4 (04:50→21:15)
[2022-09-12] MEDS: NOREPINEPHRINE 8 MG/250 ML 250 ML IV SCH (06:05)
[2022-09-12] MEDS: NS IV 1000 ML 1,000 ML IV SCH ×3 (08:45→23:03)
[2022-09-12] MEDS: DOCUSATE SODIUM 100 MG (COLACE) CAP PO SCH ×2 (08:58→21:07)
[2022-09-12] MEDS: SENNOSIDES 8.6 MG (SENOKOT) TAB PO SCH ×2 (08:58→21:07)
[2022-09-12] MEDS: PANTOPRAZOLE 40 MG (PROTONIX) TAB PO SCH (08:58)
[2022-09-12] MEDS: NICOTINE PATCH REMOVAL TP SCH (09:11)
[2022-09-12] MEDS: NICOTINE 14 MG (NICODERM) PATCH TD SCH (09:11)
--- NOTE | 2022-09-12 09:20 | Tele-ICU Progress Note ---
Progress Note video rounds completed 67 y/o male admitted with suspected sepstic shock Had axiallaeary abscesses (hidradenitis?) Started on van/zosyn Noted to have markedly elevated transaminases, but T bili is normal PE: HR 61, NSR BP: 85/54 IMP: hepatic insufficiency with elevated transaminases and PT/INR Possible septic shock from axiallry abscesses. CPM Electroluyte abnormality: correcting Overall time spent seeing patient, review of chart and labs: 20 minutes Focused Exam Lactate Level 09/10/22 03:35: Lactic Acid Level 2.74*H 09/10/22 06:30: Lactic Acid Level 1.87 Height, Weight, BMI Height: '" Weight: lbs. oz. kg; 20.16 BMI Method:Estimated Time of Focused Exam: 05:00 Labs Laboratory Tests 09/12/22 03:20 Results Results/Procedures Labs Laboratory Tests 09/10/22 10:38 09/11/22 04:16 09/12/22 03:20 Patient resulted labs reviewed. Results Labs Labs Laboratory Tests 09/11/22 10:20: Glucometer 193H 09/11/22 17:08: Glucometer 157H 09/11/22 21:02: Glucometer 186H 09/12/22 03:20: White Blood Count 8.2, Red Blood Count 2.53L, Hemoglobin 8.1L, Hematocrit 23L, Mean Corpuscular Volume 93, Mean Corpuscular Hemoglobin 32, Mean Corpuscular H emoglobin Concent 35, Red Cell Distribution Width 15.7H, Platelet Count 300, Me an Platelet Volume 10.4, Immature Granulocyte % (Auto) 1, Neutrophils (%) (Auto) 74, Lymphocytes (%) (Auto) 19, Monocytes (%) (Auto) 5, Eosinophils (%) (Auto) 2, Basophils (%) (Auto) 0, Neutrophils # (Auto) 6.1, Lymphocytes # (Auto) 1.5, Monocytes # (Auto) 0.4, Eosinophils # (Auto) 0.2, Basophils # (Auto) 0.0, Immature Granulocyte # (Auto) 0.0, Sodium Level 141, Potassium Level 3.9, Chl oride Level 112H, Carbon Dioxide Level 14L, Anion Gap 15H, Blood Urea Nitrogen 12, Creatinine 0.84, Estimat Glomerular Filtration Rate 94, BUN/Creatinine Ratio 14, Glucose Level 245H, Calcium Level 8.4L, Corrected Calcium 9.5, Phosphorus Level 2.0L, Magnesium Level 1.8, Total Bilirubin 1.2H, Aspartate Amino Transf (AST/SGOT) 174H, Alanine Aminotransferase (ALT/SGPT) 765#H, Alkaline Phosphatase 251H, Total Protein 5.6L, Albumin 2.6L Microbiology 09/11/22 MRSA Screen - Final, Complete 09/10/22 Urine Culture - Final, Complete NO GROWTH 09/10/22 Blood Culture - Preliminary, Resulted No growth DARSHAN CAMARENA MD Sep 12, 2022 09:20
--- NOTE | 2022-09-12 09:28 | Progress Note - Hospitalist ---
Subjective HPI/CC On Admission Date Seen by Provider: Sep 12, 2022 Time Seen by Provider: 08:50 CC: Severe sepsis HPI: This is a 67yoWM clinic patient of [facility] well known to this examiner due to multiple hospital stays per month for DKA who presents to the ER with weakness found to have severe sepsis due to PNA. No evidence of DKA and he is eating and drinking. He lives at home but due to multiple admits he is willing to entertain dc to [place]. IV abx initiated and pressor therapy initiated for low BP s/p 3 liters of fluid in ER. Subjective/Events-last exam Patient was attempting to get out of bed stating that there was nothing wrong with him and he was going home. Did discuss the serious nature of his pneumonia with sepsis and the fact that he had come close to and needed to remain in the hospital to continue to receive literally lifesaving medical treatment. I was able to coax him back into bed. He reported that he felt fine and voiced no complaints. He did appear to have inattention but did answer simple questions appropriately. he did not appear to be in acute distress. Focused Exam Lactate Level 09/10/22 03:35: Lactic Acid Level 2.74*H 09/10/22 06:30: Lactic Acid Level 1.87 Time of Focused Exam: 05:00 Objective Exam Vital Signs Vital Signs Date Time Temp Pulse Resp B/P (MAP) Pulse Ox O2 Delivery O2 Flow Rate FiO2 09/12/22 08:00 64 17 85/54 (62) 97 Room Air 09/12/22 07:50 36.4 Capillary Refill : Less Than 3 Seconds General Appearance: No Apparent Distress, Chronically ill Respiratory: No Accessory Muscle Use, No Respiratory Distress, Other (Coarse breath sounds posteriorly surprisingly breath sounds are equal and did not appreciate rales or rhonchi) Cardiovascular: Regular Rate, Rhythm, No Edema, No Gallop, No JVD, No Murmur, Normal Peripheral Pulses Extremity: Normal Inspection, Normal Range of Motion, Non Tender, No Calf Tenderness, No Pedal Edema, Other ( left BKA unremarkable stump.) Results/Procedures Lab Laboratory Tests 09/12/22 03:20 Patient resulted labs reviewed. Assessment/Plan Assessment and Plan Assess & Plan/Chief Complaint Assess & Plan/Chief Complaint Severe sepsisSecondary to pneumonia most likely liver failure improving with likely secondary delirium continue current broad-spectrum antibiotics as well as insulin for underlying type 2 diabetes. Complex medical management. PNA Hyperlipidemia Hx of Peptic Ulcer Disease Hx of GI Bleed Debility/Weakness KAIT Critical Care Critically Ill Patient STEVE BEDOYA MD Sep 12, 2022 09:28
--- NOTE | 2022-09-12 09:40 | Diagnostic Imaging Report ---
INDICATION: Pneumonia Frontal chest obtained at 0639 a.m. and compared to yesterday Heart is normal in size. There is poor inspiration. There is minimal infiltrate in the left lateral base. There is no pneumothorax or pleural fluid. Right-sided PICC line tip overlies the superior portion of the right atrium. IMPRESSION: Poor inspiration. Right-sided PICC line tip overlies the superior portion of the right atrium. There is minimal infiltrate in the left lateral base. Dictated by: Dictated on workstation # [id number]
[2022-09-12] MEDS: SODIUM BICARBONATE 8.4% VIAL 75 MEQ in 1/2 NS IV SOLUTION 1,000 ML IV SCH (12:10)
[2022-09-13] MEDS: SODIUM BICARBONATE 8.4% VIAL 75 MEQ in 1/2 NS IV SOLUTION 1,000 ML IV SCH ×2 (04:00→19:39)
[2022-09-13] MEDS: PIPERACILLIN SODIUM/TAZOBACTAM 4.5 GM in NS (IVPB) 100 ML IV SCH ×3 (04:00→19:44)
[2022-09-13 04:11] LABS: BASOPHILS % (AUTO) 0 % (0-10); EOSINOPHILS # (AUTO) 0.1 10^3/uL (0.0-0.3); EOSINOPHILS % (AUTO) 1 % (0-10); HEMATOCRIT 21 % (40-54); HEMOGLOBIN 7.2 g/dL (13.3-17.7); LYMPHOCYTES # (AUTO) 1.3 10^3/uL (1.0-4.0); LYMPHOCYTES % (AUTO) 25 % (12-44); MEAN CORPUSCULAR HEMOGLOBIN 32 pg (25-34); MEAN CORPUSCULAR HGB CONC 35 g/dL (32-36); MEAN CORPUSCULAR VOLUME 92 fL (80-99); MEAN PLATELET VOLUME 10.4 fL (9.0-12.2); MONOCYTES # (AUTO) 0.5 10^3/uL (0.0-1.0); MONOCYTES % (AUTO) 9 % (0-12); NEUTROPHILS # (AUTO) 3.5 10^3/uL (1.8-7.8); NEUTROPHILS % (AUTO) 65 % (42-75); PLATELET COUNT 177 10^3/uL (130-400); WHITE BLOOD COUNT 5.4 10^3/uL (4.3-11.0)
[2022-09-13 04:26] LABS: ALBUMIN 2.4 GM/DL (3.2-4.5)
[2022-09-13 04:28] LABS: CALCIUM 8.2 MG/DL (8.5-10.1)
[2022-09-13 04:29] LABS: TOTAL PROTEIN 5.3 GM/DL (6.4-8.2)
[2022-09-13 04:31] LABS: BILIRUBIN,TOTAL 1.3 MG/DL (0.1-1.0)
[2022-09-13 04:32] LABS: PHOSPHORUS 1.8 MG/DL (2.3-4.7)
[2022-09-13 04:33] LABS: CREATININE SERUM 0.81 MG/DL (0.60-1.30)
[2022-09-13 04:35] LABS: MAGNESIUM 1.5 MG/DL (1.6-2.4)
[2022-09-13] MEDS: KCL 20 MEQ TAB (K-DUR) PO SCH (05:35)
[2022-09-13] MEDS: MAGNESIUM 1 GM/100 ML IVPB 100 ML IV SCH ×5 (05:35→10:28)
[2022-09-13] MEDS: POTASSIUM CL 10MEQ/50ML IVPB 50 ML IV SCH (05:35)
[2022-09-13] MEDS: inSUlin ASPART (NovoLOG) 1 UNIT/0.01 ML (CHARGE PER UNIT) SC SCH ×4 (05:45→22:26)
[2022-09-13] MEDS: NOREPINEPHRINE 8 MG/250 ML 250 ML IV SCH (08:00)
[2022-09-13] MEDS: NS IV 1000 ML 1,000 ML IV SCH ×2 (08:00→15:47)
--- NOTE | 2022-09-13 08:18 | Diagnostic Imaging Report ---
INDICATION: Pneumonia, follow-up. TECHNIQUE: Single view chest 7:03 AM. CORRELATION STUDY: 09/12/2022 FINDINGS: Right-sided central line tip at the right atrium, stable. Heart size and mediastinum are generally stable in configuration. Infiltrate at the left lung base is present but overall stable to slightly improved from prior. Question minimal infiltrate-like opacity right upper lobe. Presumed endovascular stent at the base of the neck on the left. IMPRESSION: 1. Stable left basilar infiltrate. Question small infiltrate right upper lung field as well. Dictated by: Dictated on workstation # [id number]
[2022-09-13] MEDS: NICOTINE PATCH REMOVAL TP SCH (08:51)
[2022-09-13] MEDS: SENNOSIDES 8.6 MG (SENOKOT) TAB PO SCH ×2 (08:51→21:00)
[2022-09-13] MEDS: DOCUSATE SODIUM 100 MG (COLACE) CAP PO SCH ×2 (08:51→21:00)
[2022-09-13] MEDS: NICOTINE 14 MG (NICODERM) PATCH TD SCH (08:51)
[2022-09-13] MEDS: PANTOPRAZOLE 40 MG (PROTONIX) TAB PO SCH (08:51)
--- NOTE | 2022-09-13 10:25 | Progress Note - Hospitalist ---
Subjective HPI/CC On Admission Date Seen by Provider: Sep 13, 2022 Time Seen by Provider: 10:00 CC: Severe sepsis HPI: This is a 67yoWM clinic patient of [facility] well known to this examiner due to multiple hospital stays per month for DKA who presents to the ER with weakness found to have severe sepsis due to PNA. No evidence of DKA and he is eating and drinking. He lives at home but due to multiple admits he is willing to entertain dc to [place]. IV abx initiated and pressor therapy initiated for low BP s/p 3 liters of fluid in ER. Subjective/Events-last exam Patient was alert and oriented this morning much more pleasant than yesterday. He ask about leaving but we discussed the life-threatening nature of his likely infection with multiorgan failure. Recommended continued antibiotics likely discharge to the floor tomorrow if delirium continues to do well as his liver function tests and renal function are improving. He is amenable to this. He voiced no complaints Other than being in the hospital. Focused Exam Time of Focused Exam: 05:00 Objective Exam Vital Signs Vital Signs Date Time Temp Pulse Resp B/P (MAP) Pulse Ox O2 Delivery O2 Flow Rate FiO2 09/13/22 09:00 864 11 138/85 (104) Room Air 09/13/22 08:55 96 09/13/22 00:30 36.3 Capillary Refill : Less Than 3 Seconds General Appearance: No Apparent Distress, Chronically ill Respiratory: No Accessory Muscle Use, No Respiratory Distress, Other (Scattered rhonchi With decreased breath sounds the right base with bibasilar rales and some vesicular breath sounds on the right.) Cardiovascular: Regular Rate, Rhythm, No Edema, No Gallop, No JVD, No Murmur Gastrointestinal: Normal Bowel Sounds, No Organomegaly, No Pulsatile Mass, Non Tender, Soft Results/Procedures Lab Laboratory Tests 09/13/22 03:57 Patient resulted labs reviewed. Assessment/Plan Assessment and Plan Assess & Plan/Chief Complaint Assess & Plan/Chief Complaint Severe sepsisSecondary to pneumonia most likely liver failure improving with likely secondary delirium continue current broad-spectrum antibiotics as well as insulin for underlying type 2 diabetes. Complex medical management. 09/13: Severe sepsis resolved multiorgan failure improving with continued improv ement in liver function studies as well as improvement in delirium. If the patient continues to do well consideration for transfer to the floor tomorrow with continued physical therapy and antibiotics. PNA Hyperlipidemia Hx of Peptic Ulcer Disease Hx of GI Bleed Debility/Weakness KAIT Critical Care Critically Ill Patient STEVE BEDOYA MD Sep 13, 2022 10:25
--- NOTE | 2022-09-13 11:00 | Tele-ICU Progress Note ---
Subjective Date Seen by a Provider: Sep 13, 2022 Time Seen by a Provider: 10:59 Subjective/Events-last exam (Tele-ICU Physician , consultation as per request of PCP Service provided via interactive audio and video telecommunications E-CARE system to a patient admitted to ICU bed in [facility]. Available chart/ vitals / labs / Images reviewed H&P is from ER notes Patient's information available about PMH, Shx, Fhx allergy reviewed inEMR. ROS as per chart and RN report Now in ICU, hemodynamically stable Video assessment done using teleICU camera, rest of exam as per RN Discussed with RN. Hospital course: -16: 67 y/o M - ^BS, N/V - Hypotension 3LNS ( Recent hosp (08/27-08/31)for DKA - (09/04) I&D's Axillary Abscesses. A/P Hypotension. shock - septic suspected - LEVO 0.04, will add vaso today if can nto wean - cont resuscitation -- cont bicarb gtt - will stop tomorrow - cont abx Suspected infection - suspected soft tissue ( exam and more story as per bedside MD ) - started onb zosyn / vanco - s/p ER visit 09/04/22 - MULTIPLE BILATERAL AXILLARY ABSCESSES, AND HAD MULTIPLE I&D'S--placed on Bactrim - ? finished - CT chest / abd pel - with minimal infiltrate -CTabd/p - Cholelithiasis- follow KAIT - resolved --CTabd/p - no hydro reported - cont bicarb gtt - will stop tomorrow Hyperglycemia, poorly controlled DM - not in DKA, but had recurrent/?chronic NAGMA- ? etiology , ETON ? - ISS Elv LVT - not cleat etilology - on tylenol for rick - 6-7 times , tylenol level 26 , but ? chronic damage . Also was on Bactrim recently --CTabd/p - Cholelithiasis - as per PCP ETON - not consumin since jul 2022 Recent GIB - HB stable - ppi Coagulopathy - INT 2.5 - due to liver failure chronic pain LE - on tylenol [employer]INE [employer] ( off NSAIDs with recent KAIT ) oral candidiasis recent - not present Lines : picc 09/10 , (Central Line Necessity Reviewed) Gomez: no OG: Nutrition: po Analgesia: Anxiety/ delirium VTE Prophylaxis: coagulopathic now Stress Ulcer Prophylaxis: ppi Plans in collaboration with bedside consultants and IM MDs. Discussed with RN to reach out if any questions or concerns A total of 31 minutes of critical care time was devoted to this patient today, required to treat and/or prevent further deterioration of critical care condition ( as above ) . I am remotely monitoring this patient from another state. I am unable to do the bedside exam, and history/physical and pertinent information is taken from other notes in the computer and bedside staff. . Sepsis Event Evaluation Height, Weight, BMI Height: '" Weight: lbs. oz. kg; 20.41 BMI Method:Estimated Focused Exam Time of Focused Exam: 05:00 Exam Exam Patient acknowledged, consented, and participated in this virtual visit which was conducted using real time audio/video Vital Signs Date Time Temp Pulse Resp B/P (MAP) Pulse Ox O2 Delivery O2 Flow Rate FiO2 09/13/22 10:00 82 131/83 (99) Room Air 09/13/22 09:00 864 11 138/85 (104) Room Air 09/13/22 08:55 96 Room Air 09/13/22 08:52 77 112/75 09/13/22 08:00 104 16 112/75 (86) 98 Room Air 09/13/22 07:43 92 Room Air 09/13/22 07:00 96 09/13/22 07:00 96 17 118/82 (96) 98 Room Air 09/13/22 06:00 66 129/75 (93) 95 Room Air 09/13/22 05:00 73 119/68 (85) 90 Room Air 09/13/22 04:00 71 120/73 (89) 90 Room Air 09/13/22 04:00 98 Room Air 09/13/22 03:00 66 102/69 (80) 90 Room Air 09/13/22 02:45 91 Room Air 09/13/22 02:00 103 136/89 (105) 90 Room Air 09/13/22 01:00 76 09/13/22 01:00 103 125/80 (95) 96 Room Air 09/13/22 00:30 36.3 63 22 108/60 (76) 98 09/13/22 00:00 96 Room Air 09/13/22 00:00 62 108/60 (76) 97 Room Air 09/12/22 23:00 91 111/67 (82) 98 Room Air 09/12/22 22:00 76 119/89 (99) 94 Room Air 09/12/22 21:00 66 101/61 (74) 97 Room Air 09/12/22 20:00 36.0 09/12/22 20:00 64 112/65 (81) 99 Room Air 09/12/22 20:00 98 Room Air 09/12/22 19:21 157/92 09/12/22 19:00 66 105/74 (84) Room Air 09/12/22 19:00 66 09/12/22 18:00 71 106/83 (86) Room Air 09/12/22 17:00 70 93/63 (79) Room Air 09/12/22 16:00 60 118/75 (96) Room Air 09/12/22 16:00 35.9 09/12/22 16:00 100 Room Air 09/12/22 15:00 63 101/67 (76) Room Air 09/12/22 14:00 72 123/72 (93) Room Air 09/12/22 13:00 82 136/83 (105) Room Air 09/12/22 12:35 71 09/12/22 12:00 85 25 150/56 (88) 100 Room Air 09/12/22 11:51 36.4 09/12/22 11:47 100 Room Air 09/12/22 11:00 84 11 148/87 (122) 100 Room Air I & O 09/13/22 07:00 Intake Total 1390 ml Output Total 600 ml Balance 790 ml Height & Weight Height: '" Weight: lbs. oz. kg; 20.41 BMI Method:Estimated General Appearance: No Apparent Distress, Chronically ill HEENT: PERRL/EOMI, Normal ENT Inspection, Pharynx Normal, Moist Mucous Membranes Neck: Full Range of Motion, Normal Inspection, Non Tender Respiratory: No Accessory Muscle Use, No Respiratory Distress, Other (Scattered rhonchi With decreased breath sounds the right base with bibasilar rales and some vesicular breath sounds on the right.) Cardiovascular: Regular Rate, Rhythm, No Edema, No Gallop, No JVD, No Murmur Capillary Refill: Less Than 3 Seconds Gastrointestinal: normal bowel sounds, non tender Extremity: Normal Inspection, Normal Range of Motion, Non Tender, No Calf Tenderness, No Pedal Edema, Other ( left BKA unremarkable stump.) Neurologic/Psychiatric: Alert, Oriented x3, No Motor/Sensory Deficits, Normal Mood/Affect Skin: Normal Color, Warm/Dry Lymphatic: No Adenopathy Results Lab Laboratory Tests 09/12/22 03:20 09/13/22 03:57 Assessment/Plan Assessment/Plan 1 LAURA PRITCHARD MD Sep 13, 2022 11:00
[2022-09-13 18:37] VITALS: BP 120/82
[2022-09-14 06:05] LABS: BASOPHILS % (AUTO) 1 % (0-10); EOSINOPHILS % (AUTO) 1 % (0-10); HEMATOCRIT 21 % (40-54); HEMOGLOBIN 7.3 g/dL (13.3-17.7); LYMPHOCYTES # (AUTO) 1.5 10^3/uL (1.0-4.0); LYMPHOCYTES % (AUTO) 35 % (12-44); MEAN CORPUSCULAR HEMOGLOBIN 32 pg (25-34); MEAN CORPUSCULAR HGB CONC 34 g/dL (32-36); MEAN CORPUSCULAR VOLUME 93 fL (80-99); MEAN PLATELET VOLUME 10.5 fL (9.0-12.2); MONOCYTES # (AUTO) 0.6 10^3/uL (0.0-1.0); MONOCYTES % (AUTO) 13 % (0-12); NEUTROPHILS # (AUTO) 2.1 10^3/uL (1.8-7.8); NEUTROPHILS % (AUTO) 50 % (42-75); PLATELET COUNT 145 10^3/uL (130-400); WHITE BLOOD COUNT 4.3 10^3/uL (4.3-11.0)
[2022-09-14 06:39] LABS: ALBUMIN 2.4 GM/DL (3.2-4.5); BILIRUBIN,TOTAL 1.2 MG/DL (0.1-1.0); CALCIUM 8.1 MG/DL (8.5-10.1); CREATININE SERUM 0.77 MG/DL (0.60-1.30); MAGNESIUM 1.6 MG/DL (1.6-2.4); PHOSPHORUS 2.1 MG/DL (2.3-4.7); POTASSIUM 3.7 MMOL/L (3.6-5.0); TOTAL PROTEIN 5.4 GM/DL (6.4-8.2)
[2022-09-14] MEDS: MAGNESIUM 1 GM/100 ML IVPB 100 ML IV SCH ×5 (06:44→08:53)
[2022-09-14] MEDS: POTASSIUM CL 10MEQ/50ML IVPB 50 ML IV SCH ×2 (06:44→09:54)
[2022-09-14] MEDS: KCL 20 MEQ TAB (K-DUR) PO SCH (06:44)
[2022-09-14] MEDS: PIPERACILLIN SODIUM/TAZOBACTAM 4.5 GM in NS (IVPB) 100 ML IV SCH ×3 (06:50→20:38)
[2022-09-14] MEDS: inSUlin ASPART (NovoLOG) 1 UNIT/0.01 ML (CHARGE PER UNIT) SC SCH ×4 (06:50→20:39)
[2022-09-14] MEDS: NOREPINEPHRINE 8 MG/250 ML 250 ML IV SCH (07:35)
[2022-09-14] MEDS: NS IV 1000 ML 1,000 ML IV SCH ×2 (07:35→07:40)
[2022-09-14] MEDS: NICOTINE 14 MG (NICODERM) PATCH TD SCH (07:40)
[2022-09-14] MEDS: DOCUSATE SODIUM 100 MG (COLACE) CAP PO SCH ×2 (07:40→20:39)
[2022-09-14] MEDS: PANTOPRAZOLE 40 MG (PROTONIX) TAB PO SCH (07:40)
[2022-09-14] MEDS: SENNOSIDES 8.6 MG (SENOKOT) TAB PO SCH ×2 (07:40→20:39)
[2022-09-14] MEDS: NICOTINE PATCH REMOVAL TP SCH (07:40)
--- NOTE | 2022-09-14 08:51 | Diagnostic Imaging Report ---
CHEST 1 VIEW, AP/PA ONLY Indication: Pneumonia Comparison: 09/13/2022 Findings: Stable right PICC. Increasing nodular consolidation in the mid right lung. Left basilar patchy opacities have not changed. No pleural effusion or pneumothorax. Normal heart size. Impression: 1. New right midlung zone nodule opacity may represent a new focus of pneumonia versus atelectasis. Dictated by: Dictated on workstation # [id number]
--- NOTE | 2022-09-14 09:29 | Tele-ICU Progress Note ---
Subjective Date Seen by a Provider: Sep 14, 2022 Time Seen by a Provider: 09:29 Subjective/Events-last exam (Tele-ICU Physician , Progress Note ) Service provided via interactive audio and video telecommunications E-CARE system to a patient admitted to ICU bed in [facility]. Patient is seen today due to persistent need of ICU care Available chart/ vitals / labs / Images reviewed Video assessment done using teleICU camera, rest of exam as per RN Discussed with RN Events overnight : Afebrile hemodynamically stable Respiratory - ra I/O = ++ Drips: bicarb Pressors- no Hospital course: -: 67 y/o M - ^BS, N/V - Hypotension 3LNS ( Recent hosp (08/27-08/31)for DKA - (09/04) I&D's Axillary Abscesses. A/P Hypotension. shock - septic suspected - LEVO OFF since 09/13 morning , with short burst last night -- STOP bicarb gtt - cont abx Suspected infection - suspected soft tissue ( exam and more story as per bedside MD ) - started onb zosyn / vanco - s/p ER visit 09/04/22 - MULTIPLE BILATERAL AXILLARY ABSCESSES, AND HAD MULTIPLE I&D'S--placed on Bactrim - ? finished - CT chest / abd pel - with minimal infiltrate -CTabd/p - Cholelithiasis- follow KAIT - resolved --CTabd/p - no hydro reported - bicarb gtt - stop Hyperglycemia, poorly controlled DM - not in DKA, but had recurrent/?chronic NAGMA- ? etiology , ETON ? - ISS Elv LVT - not cleat etilology - on tylenol for rick - 6-7 times , tylenol level 26 , but ? chronic damage . Also was on Bactrim recently --CTabd/p - Cholelithiasis - as per PCP ETON - not consumin since jul 2022 Recent GIB - HB stable - ppi Coagulopathy - INT 2.5 - due to liver failure and sepsis - NL today chronic pain LE - on tylenol [employer] ( off NSAIDs with recent KAIT ) oral candidiasis recent - not present Lines : picc 09/10 , (Central Line Necessity Reviewed) Gomez: no OG: Nutrition: po Analgesia: Anxiety/ delirium VTE Prophylaxis:lovenox 40 Stress Ulcer Prophylaxis: ppi Plans in collaboration with bedside consultants and IM MDs. Discussed with RN to reach out if any questions or concerns A total of 31 minutes of critical care time was devoted to this patient today, required to treat and/or prevent further deterioration of critical care condition ( as above ) . I am remotely monitoring this patient from another state. I am unable to do the bedside exam, and history/physical and pertinent information is taken from other notes in the computer and bedside staff. . Sepsis Event Evaluation Height, Weight, BMI Height: '" Weight: lbs. oz. kg; 20.48 BMI Method:Estimated Focused Exam Time of Focused Exam: 05:00 Exam Exam Patient acknowledged, consented, and participated in this virtual visit which was conducted using real time audio/video Vital Signs Date Time Temp Pulse Resp B/P (MAP) Pulse Ox O2 Delivery O2 Flow Rate FiO2 09/14/22 09:00 68 18 97/60 (72) 97 Room Air 09/14/22 08:00 86 8 108/68 (81) 100 Room Air 09/14/22 07:42 36.2 09/14/22 07:33 95 Room Air 09/14/22 07:00 93 12 136/87 (103) 97 Room Air 09/14/22 07:00 93 09/14/22 06:00 75 14 111/75 (90) 95 Room Air 09/14/22 05:45 76 16 133/96 (107) 96 Room Air 09/14/22 05:30 72 11 115/72 (89) 96 Room Air 09/14/22 05:15 68 13 153/100 (117) 99 Room Air 09/14/22 05:00 70 28 Room Air 09/14/22 04:00 62 10 112/62 (82) Room Air 09/14/22 04:00 99 Room Air 09/14/22 03:00 68 15 128/84 (99) Room Air 09/14/22 02:45 75 27 121/84 (108) Room Air 09/14/22 02:30 94 18 153/90 (108) Room Air 09/14/22 02:15 88 21 108/77 (102) Room Air 09/14/22 02:00 65 28 100/65 (77) Room Air 09/14/22 01:45 67 75/51 (56) Room Air 09/14/22 01:30 62 85/55 (65) Room Air 09/14/22 01:15 72 18 85/60 (68) Room Air 09/14/22 01:03 63 72/54 (60) Room Air 09/14/22 01:00 65 09/14/22 01:00 65 34 61/40 (47) Room Air 09/14/22 00:00 70 92/58 (69) Room Air 09/13/22 23:44 35.9 Room Air 09/13/22 23:44 99 Room Air 09/13/22 23:00 84 11 106/76 (86) 96 Room Air 09/13/22 22:00 82 30 108/70 (81) 100 Room Air 09/13/22 21:00 63 107/63 (80) 99 Room Air 09/13/22 20:50 78 120/80 (97) 100 Room Air 09/13/22 20:00 61 1 90/56 (65) 99 Room Air 09/13/22 20:00 98 Room Air 09/13/22 20:00 36.0 09/13/22 19:37 64 12 118/76 (89) 98 Room Air 09/13/22 19:00 69 09/13/22 18:39 98 Room Air 09/13/22 18:37 36.0 78 98 09/13/22 18:00 78 13 98 Room Air 09/13/22 17:00 72 10 120/82 (97) 100 Room Air 09/13/22 16:00 36.0 09/13/22 16:00 97 Room Air 09/13/22 16:00 84 34 93/73 (86) 100 Room Air 09/13/22 15:00 65 7 90/57 (68) Room Air 09/13/22 14:00 73 10 110/66 (84) Room Air 09/13/22 13:03 77 09/13/22 13:00 75 24 109/74 (85) Room Air 09/13/22 12:00 80 8 119/68 (86) Room Air 09/13/22 11:54 96 Room Air 09/13/22 11:00 66 12 121/67 (82) Room Air 09/13/22 10:00 82 131/83 (99) Room Air I & O 09/14/22 07:00 Intake Total 3145 ml Output Total 1600 ml Balance 1545 ml Height & Weight Height: '" Weight: lbs. oz. kg; 20.48 BMI Method:Estimated General Appearance: No Apparent Distress, Chronically ill HEENT: PERRL/EOMI, Normal ENT Inspection, Pharynx Normal, Moist Mucous Membranes Neck: Full Range of Motion, Normal Inspection, Non Tender Respiratory: No Accessory Muscle Use, No Respiratory Distress, Other (Scattered rhonchi With decreased breath sounds the right base with bibasilar rales and some vesicular breath sounds on the right.) Cardiovascular: Regular Rate, Rhythm, No Edema, No Gallop, No JVD, No Murmur Capillary Refill: Less Than 3 Seconds Gastrointestinal: normal bowel sounds, non tender Extremity: Normal Inspection, Normal Range of Motion, Non Tender, No Calf Tenderness, No Pedal Edema, Other ( left BKA unremarkable stump.) Neurologic/Psychiatric: Alert, Oriented x3, No Motor/Sensory Deficits, Normal Mood/Affect Skin: Normal Color, Warm/Dry Lymphatic: No Adenopathy Results Lab Laboratory Tests 09/13/22 03:57 09/14/22 05:48 Assessment/Plan Assessment/Plan 1 LAURA PRITCHARD MD Sep 14, 2022 09:29
--- NOTE | 2022-09-14 11:49 | Progress Note - Hospitalist ---
JACQUELIN BRO 09/14/22 1149: Subjective HPI/CC On Admission Date Seen by Provider: Sep 14, 2022 Time Seen by Provider: 08:30 CC: Severe sepsis HPI: This is a 67yoWM clinic patient of [facility] well known to this examiner due to multiple hospital stays per month for DKA who presents to the ER with weakness found to have severe sepsis due to PNA vs recurrent axillary abscesses. He was seen in the ED 6 days ago for bilateral axillary abscesses which were drained by ED provider, cultured, and treated outpatient with antibiotics. Cultures returned as estevez-sensitive MSSA. No evidence of DKA and he is eating and drinking. He lives at home but due to multiple admits he is willing to entertain dc to MD. IV abx initiated and pressor therapy initiated for low BP s/p 3 liters of fluid in ER. He was seen last Subjective/Events-last exam Pt is sitting up in bed, in no distress. He reports feeling better today. He felt weak when he came in. He is having some diarrhea and is unable to make it to the toilet which is very bothersome for him. He said he wants to stay in the hopsital longer to make sure he does not have to come back to the ICU because he says last time he went home too early. He denies any pain, N/V, any signs of jaundice or abdominal discomfort. He denies CP, palpitations, SOB. He still has axillary abscesses which are spontaneously draining purulent material. He is peeing ok. Eating/drinking without issue and would like to move to med-surg. He says he believes he picked up his antibiotics for his axillary abscesses after he left the ED last week and finished them. Focused Exam Time of Focused Exam: 05:00 Objective Exam Vital Signs Vital Signs Date Time Temp Pulse Resp B/P (MAP) Pulse Ox O2 Delivery O2 Flow Rate FiO2 09/14/22 09:00 68 18 97/60 (72) 97 Room Air 09/14/22 07:42 36.2 Capillary Refill : Less Than 3 Seconds General Appearance: No Apparent Distress HEENT: PERRL/EOMI Neck: Normal Inspection, Non Tender, Supple Respiratory: Chest Non Tender, Lungs Clear, Normal Breath Sounds Cardiovascular: Regular Rate, Rhythm, No Edema, No Murmur Gastrointestinal: Normal Bowel Sounds, Non Tender, Distended, Hepatomegaly; No Tenderness Back: Normal Inspection Extremity: Non Tender, No Calf Tenderness, No Pedal Edema, Other (Left below- knee extremity is surgically absent.) Neurologic/Psychiatric: Alert, Oriented x3 Skin: Normal Color, Warm/Dry Lymphatic: Other (There are 2 1-2cm abscesses bilaterally in axilla. They drain purulently upon slight palpation. Well indurated/circumscribed. ) Results/Procedures Lab Laboratory Tests 09/14/22 05:48 Patient resulted labs reviewed. Imaging: Reviewed Imaging Films, Reviewed Imaging Report Radiology NAME: ARASH BARILLAS [facility] REC#: [id number] PT STATUS: ADM IN : 1955 PHYSICIAN: PADMINI TAPIA DO ADMIT DATE: 09/10/22/ICU Signed Date of Exam:09/14/22 CHEST 1 VIEW, AP/PA ONLY CHEST 1 VIEW, AP/PA ONLY Indication: Pneumonia Comparison: 09/13/2022 Findings: Stable right PICC. Increasing nodular consolidation in the mid right lung. Left basilar patchy opacities have not changed. No pleural effusion or pneumothorax. Normal heart size. Impression: 1. New right midlung zone nodule opacity may represent a new focus of pneumonia versus atelectasis. Dictated by: Dictated on workstation # [id number] Dict: 09/14/22 0849 Trans: 09/14/22 1004 CV [id number] Interpreted by: ADONIS ADAME MD Electronically signed by: ADONIS ADAME MD 09/14/22 1004 Assessment/Plan Assessment and Plan Assess & Plan/Chief Complaint Assessment: This is a 67 y/o male admitted for severe sepsis 2/2 PNA vs recurrent axillary abscesses now HD#4. SIRS negative on admit: (07/01) HR >90 --> +1 Temp 36.2 (wnl) RR 18 (wnl) WBC 10.2 Infectious source: Recurrent Axillary abscesses vs PNA Malaise/weakness -Vanc (dc'd) -Pip/tazo (continued) -Blood cultures, urine cx no growth to date -Axillary abscess cultures from 09/04 + for MSSA. Estevez-sensitive except for Pen G. -vital signs stable since admission, afebrile -CXR with less expansion today, atelectasis vs new infiltrate; CT on admit with Right upper lobe patchy groundglass infiltrate c/w atypical pneumonia; asymptomatic respiratory-martinez -Continue IV Zosyn given recurrent abscesses and adequate coverage for PNA; consult surgery for evaluation poss. I&D and repeat culture Elevated Liver Enzymes Elevated T. Bili Elevated Coagulation Times Chronic DILI/Alcohol/APAP liver injury vs Choledocholithiasis/cholestasis -INR 2.5 on admit --> r/p was 1.0 -AST 54, ALT 384, Alk phos 228 today - downtrending since admission -Could check ammonia level. -Hepatitis, HIV negative. -CT of chest/abdomen/pelvis makes no comment of liver size or abnormalities of liver -Cholelithiasis noted on this study -Has had recent drugs with poss liver toxicity/idiosyncratic enzyme elevations; bactrim, APAP/hydrocodone (level of 26 on admit, mildly elevated), -Pt on ppx heparin, could contribute to elevated enzymes, can consider switch to lovenox as kidney panel is WNL -Will get U/S of abdomen to evaluate further as no imaging in history/records has made mention of findings c/w chronic liver disease. -Was given a dose of NAC Hx of GI Bleed Hx of Peptic Ulcer Disease -Continue protonix -Had previously been on triple therapy with Dr. Carroll for H. pylori.- recommended therapy for at least 3 months - this was not on home med list; will defer to surgery since consulted for abscesses Insulin-dependent DM -SSI -Levemir 8u BID -BGL fasting this AM was 333, previous at 8pm night before was 152 -continue monitoring Neuropathy S/p RL extremity amputation BKA -On gabapentin; may continue FEN/GI -PPI -Bowel regimen - hold now for diarrhea -Diabetic diet/peptic ulcer diet DVT Prophylaxis: SCDs, heparin Dispo: Ok to transfer to med-surg pending further evaluation of abscesses and elevated liver enzymes PADMINI TAPIA DO 09/15/22 0448: Supervisory-Addendum Brief Verification & Attestation Participated in pt care: history, MDM, physical Personally performed: exam, history, MDM, supervision of care Care discussed with: Medical Student Procedures: n/a Results interpretation: Verified all documentation Verification and Attestation of Medical Student E/M Service A medical student performed and documented this service in my presence. I reviewed and verified all information documented by the medical student and made modifications to such information, when appropriate. I personally performed the physical exam and medical decision making. Padmini Tapia, Sep 15, 2022,04:48 JACQUELIN BRO Sep 14, 2022 11:49 PADMINI TAPIA DO Sep 15, 2022 04:48
[2022-09-14 14:13] VITALS: BP 104/60
[2022-09-14 15:21] VITALS: BP 104/60
--- NOTE | 2022-09-14 17:03 | Diagnostic Imaging Report ---
PROCEDURE: US Abdomen, limited. TECHNIQUE: Multiple realtime grayscale images were obtained over the abdomen in various projections. INDICATION: Liver failure Liver has increased echogenicity suggesting fatty infiltration. The liver has coarse echotexture. Portal vein is patent with hepatopetal flow. There are some tiny calculi layering out in the gallbladder. The gallbladder wall is not thickened. Common duct is not dilated. Pancreas is obscured by bowel gas. Aorta and IVC are normal. Right kidney measures 10 cm in length and appears normal. There is ascites present. IMPRESSION: Coarse appearing liver with increased echogenicity. This could be from hepatic steatosis or cirrhosis. There is ascites present. Probable cholecystolithiasis. Dictated by: Dictated on workstation # [id number]
--- NOTE | 2022-09-14 19:18 | Progress Note-Pre Operative ---
Pre-Operative Progress Note Date of Available H&P: Sep 14, 2022 Date H&P Reviewed: Sep 14, 2022 Time H&P Reviewed: 19:15 History & Physical: No changes noted Pre-Operative Diagnosis: bilateral axillary hydradenitis suppuritiva. BLADIMIR DAVIDSON MD Sep 14, 2022 19:18
[2022-09-14 19:33] VITALS: BP 94/58
[2022-09-14 23:46] VITALS: BP 108/63
[2022-09-15] VITALS (12 sets, daily range): BP systolic 100–139; BP diastolic 58–84
[2022-09-15] MEDS: PIPERACILLIN SODIUM/TAZOBACTAM 4.5 GM in NS (IVPB) 100 ML IV SCH ×4 (04:09→22:02)
[2022-09-15 04:50] LABS: BASOPHILS % (AUTO) 0 % (0-10); EOSINOPHILS % (AUTO) 0 % (0-10); HEMATOCRIT 21 % (40-54); LYMPHOCYTES # (AUTO) 1.4 10^3/uL (1.0-4.0); MEAN CORPUSCULAR HEMOGLOBIN 32 pg (25-34); MEAN CORPUSCULAR HGB CONC 34 g/dL (32-36); MEAN CORPUSCULAR VOLUME 94 fL (80-99)
[2022-09-15 04:52] LABS: LYMPHOCYTES % (AUTO) 26 % (12-44); MEAN PLATELET VOLUME 10.6 fL (9.0-12.2); MONOCYTES # (AUTO) 0.8 10^3/uL (0.0-1.0); MONOCYTES % (AUTO) 14 % (0-12); NEUTROPHILS # (AUTO) 3.2 10^3/uL (1.8-7.8); NEUTROPHILS % (AUTO) 59 % (42-75); PLATELET COUNT 130 10^3/uL (130-400); WHITE BLOOD COUNT 5.5 10^3/uL (4.3-11.0)
[2022-09-15 05:00] LABS: ALBUMIN 2.3 GM/DL (3.2-4.5)
[2022-09-15 05:03] LABS: TOTAL PROTEIN 5.1 GM/DL (6.4-8.2)
[2022-09-15 05:06] LABS: CREATININE SERUM 0.74 MG/DL (0.60-1.30)
[2022-09-15 05:09] LABS: MAGNESIUM 1.7 MG/DL (1.6-2.4)
[2022-09-15] MEDS: inSUlin ASPART (NovoLOG) 1 UNIT/0.01 ML (CHARGE PER UNIT) SC SCH ×4 (05:24→20:50)
[2022-09-15 05:35] LABS: SMEAR SCAN COMMENT YES
[2022-09-15] MEDS: DOCUSATE SODIUM 100 MG (COLACE) CAP PO SCH ×2 (08:34→20:49)
[2022-09-15] MEDS: SENNOSIDES 8.6 MG (SENOKOT) TAB PO SCH ×2 (08:34→20:49)
[2022-09-15] MEDS: PANTOPRAZOLE 40 MG (PROTONIX) TAB PO SCH (08:38)
[2022-09-15] MEDS: NICOTINE 14 MG (NICODERM) PATCH TD SCH (08:38)
[2022-09-15] MEDS: NICOTINE PATCH REMOVAL TP SCH (08:39)
[2022-09-15] MEDS ORDERED: BUP/EPI 0.5% 1:200,000 (SENSORCAINE) 30 ML VIAL ONE (10:40)
--- NOTE | 2022-09-15 10:53 | Progress Note - Hospitalist ---
JACQUELIN BRO Marla 09/15/22 1053: Subjective HPI/CC On Admission Date Seen by Provider: Sep 15, 2022 Time Seen by Provider: 08:00 CC: Severe sepsis HPI: This is a 67yoWM clinic patient of [facility] well known to this examiner due to multiple hospital stays per month for DKA who presents to the ER with weakness found to have severe sepsis due to PNA vs recurrent axillary abscesses. He was seen in the ED 6 days ago for bilateral axillary abscesses which were drained by ED provider, cultured, and treated outpatient with antibiotics. Cultures returned as estevez-sensitive MSSA. No evidence of DKA and he is eating and drinking. He lives at home but due to multiple admits he is willing to entertain dc to [place]. IV abx initiated and pressor therapy initiated for low BP s/p 3 liters of fluid in ER. Subjective/Events-last exam Pt is doing ok this AM. He is NPO for surgery later today and is very hungry. Has had an episode of diarrhea but denies recurrent. He denies any pain at this time and has no symptoms to report. Voiding without issue. Focused Exam Time of Focused Exam: 05:00 Objective Exam Vital Signs Vital Signs Date Time Temp Pulse Resp B/P (MAP) Pulse Ox O2 Delivery O2 Flow Rate FiO2 09/15/22 08:00 95 Room Air 09/15/22 07:21 37.0 77 20 113/63 (80) Capillary Refill : Less Than 3 Seconds HEENT: PERRL/EOMI, TMs Normal Neck: Full Range of Motion, Normal Inspection, Supple Respiratory: Chest Non Tender, Lungs Clear, Normal Breath Sounds Cardiovascular: Regular Rate, Rhythm, No Edema, No Gallop, No Murmur Gastrointestinal: Normal Bowel Sounds, Non Tender, Soft Back: Normal Inspection Extremity: Non Tender, No Calf Tenderness, No Pedal Edema, Other (Lt lower extremity surgically absent below the knee. ) Neurologic/Psychiatric: Alert, Oriented x3 Skin: Normal Color, Warm/Dry Results/Procedures Lab Laboratory Tests 09/15/22 04:14 Patient resulted labs reviewed. Imaging: Reviewed Imaging Films, Reviewed Imaging Report Radiology NAME: ARASH BARILLAS [facility] REC#: [id number] PT STATUS: ADM IN : 1955 PHYSICIAN: PADMINI TAPIA DO ADMIT DATE: 09/10/22 Signed Date of Exam:09/14/22 US ABDOMEN LIMITED [id number] PROCEDURE: US Abdomen, limited. TECHNIQUE: Multiple realtime grayscale images were obtained over the abdomen in various projections. INDICATION: Liver failure Liver has increased echogenicity suggesting fatty infiltration. The liver has coarse echotexture. Portal vein is patent with hepatopetal flow. There are some tiny calculi layering out in the gallbladder. The gallbladder wall is not thickened. Common duct is not dilated. Pancreas is obscured by bowel gas. Aorta and IVC are normal. Right kidney measures 10 cm in length and appears normal. There is ascites present. IMPRESSION: Coarse appearing liver with increased echogenicity. This could be from hepatic steatosis or cirrhosis. There is ascites present. Probable cholecystolithiasis. Dictated by: Dictated on workstation # [id number] Dict: 09/14/22 1658 Trans: 09/14/22 1703 RADHA [id number] Interpreted by: MICHAEL CARTY MD Electronically signed by: MICHAEL CARTY MD 09/14/22 1703 Assessment/Plan Assessment and Plan Assess & Plan/Chief Complaint Assessment: This is a 67 y/o male admitted for severe sepsis 2/2 PNA vs recurrent axillary abscesses now HD#5. SIRS negative on admit: (07/01) HR >90 --> +1 Temp 36.2 (wnl) RR 18 (wnl) WBC 10.2 Infectious source: Recurrent Axillary abscesses/hidradenitis suppurativa vs PNA Malaise/weakness -Vanc (dc'd) -Pip/tazo (continued) -Blood cultures, urine cx no growth to date (09/15) -Axillary abscess cultures from 09/04 + for MSSA. Estevez-sensitive except for Pen G. -vital signs stable since admission, afebrile -CXR with less expansion on 09/14, atelectasis vs new infiltrate; CT on admit with Right upper lobe patchy groundglass infiltrate c/w atypical pneumonia; asymptomatic respiratory-martinez -Continue IV Zosyn given recurrent abscesses and adequate coverage for PNA; -Surgery following; to OR this afternoon for I&D for hidradenitis suppurativa - seems like likely source of presenting complaints. Elevated Liver Enzymes Elevated T. Bili Elevated Coagulation Times Chronic DILI/Alcohol/APAP liver injury vs Choledocholithiasis/cholestasis -INR 2.5 on admit --> r/p was 1.0 -AST 54 -> 40, ALT 384 --> 293, Alk phos 228-->211 (09/15) - downtrending since admission -Could check ammonia level. -Hepatitis, HIV negative. -CT of chest/abdomen/pelvis makes no comment of liver size or abnormalities of liver -Cholelithiasis noted on this study -Has had recent drugs with poss liver toxicity/idiosyncratic enzyme elevations; bactrim, APAP/hydrocodone (level of 26 on admit, mildly elevated), -Pt on ppx heparin, could contribute to elevated enzymes, can consider switch to lovenox as kidney panel is WNL -U/S c/w cirrhosis vs fatty liver. Avoid liver toxic drugs. -Was given a dose of NAC Hx of GI Bleed Hx of Peptic Ulcer Disease -Continue protonix -Had previously been on triple therapy with Dr. Carroll for H. pylori.- recommended therapy for at least 3 months - this was not on home med list; will defer to surgery since consulted for abscesses Insulin-dependent DM -SSI -Levemir 8u BID -BGL fasting this AM was 333, previous at 8pm night before was 152 -continue monitoring Neuropathy S/p RL extremity amputation BKA -On gabapentin; may continue FEN/GI -PPI -Bowel regimen - hold now for diarrhea -Diabetic diet/peptic ulcer diet DVT Prophylaxis: SCDs, heparin Dispo: To OR today with gen surgery for hidradenitis suppurativa. Stable. PADMINI TAPIA DO 09/16/22 0516: Objective Exam General Appearance: No Apparent Distress, WD/WN, Chronically ill Supervisory-Addendum Brief Verification & Attestation Participated in pt care: history, MDM, physical Personally performed: exam, history, MDM, supervision of care Care discussed with: Medical Student Procedures: n/a Results interpretation: Verified all documentation Verification and Attestation of Medical Student E/M Service A medical student performed and documented this service in my presence. I reviewed and verified all information documented by the medical student and made modifications to such information, when appropriate. I personally performed the physical exam and medical decision making. Padmini Tapia Sep 16, 2022,05:16 JACQUELIN BRO Sep 15, 2022 10:53 PADMINI TAPIA DO Sep 16, 2022 05:16
[2022-09-15] MEDS ORDERED: LIDOCAINE PF 2% 5 ML (XYLOCAINE) VIAL ONE (10:58)
[2022-09-15] MEDS ORDERED: SEVOFLURANE (ULTANE) 15 ML INHAL SOLN ONE (10:58)
[2022-09-15] MEDS ORDERED: fentaNYL INJ 100 MCG/2 ML AMP ONE (10:58)
[2022-09-15] MEDS ORDERED: proPOfol 200 MG/20 ML (DIPRIVAN) VIAL IV ONE (10:58)
[2022-09-15] MEDS ORDERED: MIDAZOLAM 2 MG/2 ML (VERSED) VIAL ONE (10:58)
[2022-09-15] MEDS ORDERED: LACTATED RINGERS 1,000 ML IV PRN (11:15)
--- NOTE | 2022-09-15 11:55 | Progress Note ---
Subjective Date Seen by a Provider: Sep 15, 2022 Time Seen by a Provider: 11:00 Subjective/Events-last exam doing well. no fever/chills. has pain and inflammation bilateral axilla. Focused Exam Time of Focused Exam: 05:00 Objective Exam Vital Signs Date Time Temp Pulse Resp B/P (MAP) Pulse Ox O2 Delivery O2 Flow Rate FiO2 09/15/22 08:00 95 Room Air 09/15/22 07:21 37.0 77 20 113/63 (80) 96 Room Air 09/15/22 04:11 36.6 74 20 111/68 (82) 94 Room Air 09/14/22 23:46 36.7 70 18 108/63 (78) 97 Room Air 09/14/22 20:40 Room Air 09/14/22 19:33 36.6 71 18 94/58 (70) 95 Room Air 09/14/22 15:21 36.4 77 20 104/60 (75) 98 Room Air 09/14/22 14:13 36.2 82 18 104/60 (75) 98 I & O 09/15/22 07:00 Intake Total 2300 ml Output Total 300 ml Balance 2000 ml Capillary Refill : Less Than 3 Seconds General Appearance: No Apparent Distress HEENT: PERRL/EOMI Neck: Full Range of Motion Respiratory: Chest Non Tender, Normal Breath Sounds Cardiovascular: Regular Rate, Rhythm Gastrointestinal: normal bowel sounds, non tender, soft Extremity: Normal Capillary Refill Neurologic/Psychiatric: Alert, Oriented x3 Skin: Normal Color Lymphatic: No Adenopathy Results Lab Laboratory Tests 09/14/22 16:27: Glucometer 131H 09/14/22 20:23: Glucometer 68L 09/14/22 21:20: Glucometer 91 09/15/22 04:14: White Blood Count 5.5, Red Blood Count 2.20L, Hemoglobin 7.0L, Hematocrit 21L, Mean Corpuscular Volume 94, Mean Corpuscular Hemoglobin 32, Mean Corpuscular Hemoglobin Concent 34, Red Cell Distribution Width 17.2H, Platelet Count 130, Mean Platelet Volume 10.6, Immature Granulocyte % (Auto) 1, Neutrophils (%) (Auto) 59, Lymphocytes (%) (Auto) 26, Monocytes (%) (Auto) 14H, Eosinophils (%) (Auto) 0, Basophils (%) (Auto) 0, Neutrophils # (Auto) 3.2, Lymphocytes # (Auto) 1.4, Monocytes # (Auto) 0.8, Eosinophils # (Auto) 0.0, Basophils # (Auto) 0.0, Immature Granulocyte # (Auto) 0.0, Percent Immature Platelet Fraction 4.6, Sodium Level 141, Potassium Level 4.0, Chloride Level 108H, Carbon Dioxide Level 22, Anion Gap 11, Blood Urea Nitrogen 5L, Creatinine 0.74, Estimat Glomerular Filtration Rate 98, BUN/Creatinine Ratio 7, Glucose Level 290H, Calcium Level 8.0L, Corrected Calcium 9.4, Magnesium Level 1.7, Total Bilirubin 1.0, Aspartate Amino Transf (AST/SGOT) 40H, Alanine Aminotransferase (ALT/SGPT) 293H, Alkaline Phosphatase 211H, Total Protein 5.1L, Albumin 2.3L, Smear Scan YES Microbiology 09/11/22 MRSA Screen - Final, Complete 09/10/22 Urine Culture - Final, Complete NO GROWTH 09/10/22 Blood Culture - Preliminary, Resulted No growth Assessment/Plan Assessment/Plan Assess & Plan/Chief Complaint bilateral axilla hydradenitis. will proceed with bilateral axilla excision hydradenitis. BLADIMIR DAVIDSON MD Sep 15, 2022 11:55
--- NOTE | 2022-09-15 12:53 | CONSULTATION REPORT ---
DATE OF SERVICE: 09/14/2022 ATTENDING PRIMARY CARE PHYSICIAN: Roberto Carlos Perez MD ADMITTING PHYSICIAN: Dr. Lemons. HISTORY OF PRESENT ILLNESS: The patient is a 67-year-old male known to us. He has had multiple hospital admissions for diabetic ketoacidosis, weakness, sepsis as well as recurrent infections. The patient was again readmitted for diabetic ketoacidosis. On this admission, he developed bilateral axillary redness, erythema and abscesses, which resemble bilateral hidradenitis suppurativa. He is currently on antibiotics with piperacillin/tazobactam; however, the infection clinically persists. PAST MEDICAL HISTORY: Insulin-dependent diabetes, peptic ulcer disease, neuropathy, hypertension, hypercholesterolemia, peripheral vascular disease, coronary artery disease. PAST SURGICAL HISTORY: Left below-knee amputation, inguinal hernia repair, low anterior colorectal resection. ALLERGIES: No known drug allergies. MEDICATIONS: Gabapentin 600 mg t.i.d., aspartate insulin sliding scale, detemir insulin 8 units q.a.m., 13 units at bedtime, Protonix 40 mg daily, Bactrim b.i.d., thiamine 100 mg daily, folic acid 1 mg daily. SOCIAL HISTORY: Positive smoke, greater than 50 pack years previous methamphetamine use, alcohol daily. FAMILY HISTORY: Noncontributory. REVIEW OF SYSTEMS: Well-nourished male. Currently in no acute distress. He is not experiencing any shortness of breath or difficulty breathing. No chest pain, palpitations, diaphoresis. No new cough or sputum production. No nausea or vomiting. No diarrhea or constipation. Redness and swelling bilateral axilla with purulent drainage. No fever or chills. No recent inadvertent weight loss. PHYSICAL EXAMINATION: VITAL SIGNS: Temperature 37.0, blood pressure 113/63, pulse 77, respirations 20, pulse ox 96% on room air. CHEST: Scattered wheezes and rhonchi bilaterally. HEART: Regular. No murmurs. EXTREMITIES: Surgically absent left lower extremity. Negative Homans sign. HEENT: No scleral icterus. No cervical lymphadenopathy. ABDOMEN: Soft, nontender, nondistended. SKIN: Bilateral axillary swelling, redness, erythema with multiple small opening and purulent drainage. ASSESSMENT AND PLAN: A 67-year-old male with bilateral axillary hidradenitis suppurativa. The natural history of this disease process as well as the surgical treatment modality were explained to the patient. He is in full understanding of this and would like to proceed with bilateral hidradenitis excision. However, the route of his issue is blood sugar control in multiple episodes of diabetic ketoacidosis and with better glycemic control. The infectious processes that he has been experiencing should improve. Job ID: [id number] DocumentID: [id number] Dictated Date: 09/15/2022 12:11:39 Suede Cleaner Date: 09/15/2022 12:50:00 Dictated By: BLADIMIR DAVIDSON MD
--- NOTE | 2022-09-15 13:10 | Progress Note-Post Operative ---
Post-Operative Progess Note Surgeon (s)/Plisse Machine Operator Helper (s) Surgeon BLADIMIR DAVIDSON MD Plisse Machine Operator Helper: none Pre-Operative Diagnosis bilateral axillary hydradenitis suppuritiva. Post-Operative Diagnosis same Procedure & Operative Findings Date of Procedure 09/15/22 Procedure Performed/Findings bilateral excision axillary hydradenitis suppuritiva with moderate flap closure(4cm) Anesthesia Type general LMA Estimated Blood Loss Estimated blood loss (mL): minimal Specimens/Packing Specimens Removed bilateral axillary skin and subq BLADIMIR DAVIDSON MD Sep 15, 2022 13:09
[2022-09-15] MEDS ORDERED: HYDROmorphone 2 MG/ML VIAL (DILAUDID) IV ONE (13:15)
[2022-09-15] MEDS ORDERED: MEPERIDINE (DEMEROL) INJ 50 MG/ML IVP ONE (13:15)
[2022-09-15] MEDS ORDERED: ONDANSETRON 4 MG/2 ML (SDV) Z0FRAN IVP PRN (13:15)
[2022-09-15] MEDS ORDERED: morphine INJ 10 MG/ML 1ML (SYR OR VIAL) IVP ONE (13:15)
[2022-09-15] MEDS ORDERED: PROMETHAZINE INJ 25 MG/ML (PHENERGAN) AMP IVP ONE (13:15)
--- NOTE | 2022-09-15 13:17 | Anesthesia-General Post-Op ---
General Patient Condition Mental Status/LOC: Same as Preop Cardiovascular: Satisfactory Nausea/Vomiting: Absent Respiratory: Satisfactory Pain: Controlled Complications: Absent Post Op Complications Complications None Follow Up Care/Instructions Patient Instructions None needed. Anesthesia/Patient Condition Patient Condition Patient is doing well, no complaints, stable vital signs, no apparent adverse anesthesia problems. No complications reported per nursing. DARLINE PRADO CRNA Sep 15, 2022 13:17
[2022-09-16 03:30] VITALS: BP 143/76
[2022-09-16 05:32] LABS: BASOPHILS % (AUTO) 0 % (0-10); EOSINOPHILS % (AUTO) 0 % (0-10); HEMATOCRIT 23 % (40-54); HEMOGLOBIN 7.7 g/dL (13.3-17.7); LYMPHOCYTES # (AUTO) 1.8 10^3/uL (1.0-4.0); LYMPHOCYTES % (AUTO) 17 % (12-44); MEAN CORPUSCULAR HEMOGLOBIN 32 pg (25-34); MEAN CORPUSCULAR HGB CONC 34 g/dL (32-36); MEAN CORPUSCULAR VOLUME 95 fL (80-99); MEAN PLATELET VOLUME 10.8 fL (9.0-12.2); MONOCYTES # (AUTO) 1.1 10^3/uL (0.0-1.0); MONOCYTES % (AUTO) 11 % (0-12); NEUTROPHILS # (AUTO) 7.3 10^3/uL (1.8-7.8); NEUTROPHILS % (AUTO) 71 % (42-75); PLATELET COUNT 171 10^3/uL (130-400); WHITE BLOOD COUNT 10.2 10^3/uL (4.3-11.0)
[2022-09-16 06:15] LABS: ALBUMIN 2.3 GM/DL (3.2-4.5); CALCIUM 8.3 MG/DL (8.5-10.1); CREATININE SERUM 0.69 MG/DL (0.60-1.30); MAGNESIUM 1.4 MG/DL (1.6-2.4); POTASSIUM 3.4 MMOL/L (3.6-5.0); TOTAL PROTEIN 5.5 GM/DL (6.4-8.2)
[2022-09-16] MEDS: inSUlin ASPART (NovoLOG) 1 UNIT/0.01 ML (CHARGE PER UNIT) SC SCH ×4 (06:23→20:49)
[2022-09-16] MEDS: PIPERACILLIN SODIUM/TAZOBACTAM 4.5 GM in NS (IVPB) 100 ML IV SCH ×3 (06:30→22:40)
[2022-09-16 08:40] VITALS: BP 131/72
[2022-09-16] MEDS: DOCUSATE SODIUM 100 MG (COLACE) CAP PO SCH ×2 (09:14→20:54)
[2022-09-16] MEDS: SENNOSIDES 8.6 MG (SENOKOT) TAB PO SCH ×2 (09:14→20:54)
[2022-09-16] MEDS: NICOTINE PATCH REMOVAL TP SCH (09:21)
[2022-09-16] MEDS: NICOTINE 14 MG (NICODERM) PATCH TD SCH (09:21)
[2022-09-16] MEDS: PANTOPRAZOLE 40 MG (PROTONIX) TAB PO SCH (09:22)
--- NOTE | 2022-09-16 11:07 | Progress Note - Hospitalist ---
JACQUELIN BRO 09/16/22 1107: Subjective HPI/CC On Admission Date Seen by Provider: Sep 16, 2022 Time Seen by Provider: 08:10 CC: Severe sepsis HPI: This is a 67yoWM clinic patient of [facility] well known to this examiner due to multiple hospital stays per month for DKA who presents to the ER with weakness found to have severe sepsis due to PNA vs recurrent axillary abscesses. He was seen in the ED 6 days ago for bilateral axillary abscesses which were drained by ED provider, cultured, and treated outpatient with antibiotics. Cultures returned as estevez-sensitive MSSA. No evidence of DKA and he is eating and drinking. He lives at home but due to multiple admits he is willing to entertain dc to [place]. IV abx initiated and pressor therapy initiated for low BP s/p 3 liters of fluid in ER. Subjective/Events-last exam Pt is laying in bed this AM, just finished breakfast. Is frustrated with blood sugar crashes/spikes over past day. Expressing [facility] as he is afraid to go home only to end up back here. Surgery went well, pain is manageable at this time. Having BMs, voiding without issue. No N/V. Focused Exam Time of Focused Exam: 05:00 Objective Exam Vital Signs Vital Signs Date Time Temp Pulse Resp B/P (MAP) Pulse Ox O2 Delivery O2 Flow Rate FiO2 09/16/22 08:40 36.0 99 18 131/72 (91) 97 Room Air 09/16/22 03:30 0.00 0.00 Capillary Refill : Less Than 3 SecondsLess Than 3 Seconds General Appearance: No Apparent Distress HEENT: PERRL/EOMI Neck: Non Tender Respiratory: Lungs Clear, Normal Breath Sounds Cardiovascular: Regular Rate, Rhythm, No Murmur Gastrointestinal: Non Tender, Soft, Hepatomegaly Extremity: Pedal Edema (Trace in right lower extrmeity.), Other (Left below knee extremity surgically absent.) Neurologic/Psychiatric: Alert, Oriented x3 Skin: Normal Color, Warm/Dry Results/Procedures Lab Laboratory Tests 09/16/22 05:15 Patient resulted labs reviewed. Imaging: Reviewed Imaging Films, Reviewed Imaging Report Assessment/Plan Assessment and Plan Assess & Plan/Chief Complaint Assessment: This is a 67 y/o male admitted for severe sepsis 2/2 PNA vs recurrent axillary abscesses now HD#6. SIRS negative on admit: (07/01) HR >90 --> +1 Temp 36.2 (wnl) RR 18 (wnl) WBC 10.2 Recurrent Axillary abscesses/hidradenitis suppurativa; POD#1 s/p I&D Malaise/weakness -Vanc (dc'd) initially; presumptive MRSA+ screen for surgical culture on 09/16, will restart. Awaiting final culture results from surgical specimen. -Pip/tazo (continued) -Blood cultures, urine cx no growth to date (09/16) -Axillary abscess cultures from 09/04 + for MSSA. Estevez-sensitive except for Pen G. -vital signs stable since admission, afebrile -Continue IV Zosyn given recurrent abscesses and adequate coverage for PNA; -Surgery following; Elevated Liver Enzymes Elevated T. Bili Elevated Coagulation Times Chronic DILI/Alcohol/APAP liver injury vs Choledocholithiasis/cholestasis -INR 2.5 on admit --> r/p was 1.0 -AST/ALT/Alk Phos continue to downtrend. -Could check ammonia level. -Hepatitis, HIV negative. -CT of chest/abdomen/pelvis makes no comment of liver size or abnormalities of liver -Cholelithiasis noted on this study -Has had recent drugs with poss liver toxicity/idiosyncratic enzyme elevations; bactrim, APAP/hydrocodone (level of 26 on admit, mildly elevated), -Pt on ppx heparin, could contribute to elevated enzymes, can consider switch to lovenox as kidney panel is WNL -U/S c/w cirrhosis vs fatty liver. Avoid liver toxic drugs. -Was given a dose of NAC Hx of GI Bleed Hx of Peptic Ulcer Disease -Continue protonix -Had previously been on triple therapy with Dr. Carroll for H. pylori.- recommended therapy for at least 3 months - this was not on home med list; will defer to surgery since consulted for abscesses Insulin-dependent DM -SSI -Levemir 8u BID, will hold for BGL <140 -BGL fasting this AM was 333, previous at 8pm night before was 152 -continue monitoring Neuropathy S/p RL extremity amputation BKA -On gabapentin; may continue FEN/GI -PPI -Bowel regimen - hold now for diarrhea -Diabetic diet/peptic ulcer diet DVT Prophylaxis: SCDs, heparin Dispo: Improved. Working toward DC plan. Final surgical wound culture pending; continue broad spectrum antibiotics. PADMINI TAPIA DO 09/17/22 0447: Subjective Subjective/Events-last exam No major issues Awaiting NHP since now he agrees to go No falls Sugars are stable overall Pain from I&D axillas Review of Systems General: Fatigue, Malaise Objective Exam General Appearance: No Apparent Distress, WD/WN, Chronically ill Respiratory: Lungs Clear, Normal Breath Sounds Cardiovascular: Regular Rate, Rhythm Neurologic/Psychiatric: Alert, Oriented x3 Supervisory-Addendum Brief Verification & Attestation Participated in pt care: history, MDM, physical Personally performed: exam, history, MDM, supervision of care Care discussed with: Medical Student Procedures: n/a Results interpretation: Verified all documentation Verification and Attestation of Medical Student E/M Service A medical student performed and documented this service in my presence. I reviewed and verified all information documented by the medical student and made modifications to such information, when appropriate. I personally performed the physical exam and medical decision making. Padmini Tapia, Sep 17, 2022,04:46 JACQUELIN BRO Sep 16, 2022 11:07 PADMINI TAPIA DO Sep 17, 2022 04:47
[2022-09-16 11:32] VITALS: BP 127/67
[2022-09-16 15:25] VITALS: BP 116/73
--- NOTE | 2022-09-16 15:45 | OPERATIVE REPORT ---
DATE OF SERVICE: 09/15/2022 ATTENDING PRIMARY CARE PHYSICIAN: Dr. Roberto Carlos Perez. ATTENDING PHYSICIAN: Dr. Lemons. PREOPERATIVE DIAGNOSIS: Bilateral hidradenitis suppurativa. POSTOPERATIVE DIAGNOSIS: Bilateral hidradenitis suppurativa. PROCEDURE: Bilateral axillary excision of complex hidradenitis suppurativa with moderate flap closure. Both axilla approximately 4 cm in size. SURGEON: Dr. Bladimir Davidson ANESTHESIA: General laryngeal mask airway with local. ESTIMATED BLOOD LOSS: Minimal. FINDINGS: Multiple abscesses and sinus tracts consistent with acute on chronic hidradenitis suppurativa, bilateral axilla. DISPOSITION: The patient tolerated the procedure well. INDICATIONS: The patient is a 67-year-old male known to us. He has had multiple admissions for diabetic ketoacidosis weakness, sepsis and recurrent infections. The patient was readmitted for diabetic ketoacidosis and on this admission and developed bilateral axillary redness, erythema, abscesses as well as purulent drainage consistent with bilateral axillary hidradenitis suppurativa. He was on antibiotics with Zosyn; however, the infection clinically persisted. DESCRIPTION OF PROCEDURE: The patient was brought to the operating room, laid supine on the table. After adequate IV pain and sedative medications and general laryngeal mask airway intubation, the bilateral axillae were prepped and draped in standard surgical fashion. We first started with excision of the left axilla and the abscesses and fistulas tracts were marked off with a marking pen in an elliptical shape. This area was then anesthetized using 0.5% Marcaine with epinephrine. A skin incision was then made using a #15 blade and we proceeded with sharp dissection of the involved tissue using the #15 blade as well as electrocautery until normal subcutaneous tissue was identified. Good hemostasis was achieved using direct pressure as well as electrocautery. The subcutaneous tissue was then reapproximated using 3-0 Vicryl interrupted suture. Skin was closed using 3-0 Monocryl interrupted sutures. The wound was then cleaned and covered with sterile gauze. We then went to the right axilla of the patient. The abscesses and sinus tracts were then marked off with a marking pen. The area was then anesthetized using 0.5% Marcaine with epinephrine. A skin incision along our marking was then made using a #15 blade. We then proceeded with sharp dissection using the #15 blade as well as electrocautery encompassing all of the affected tissue until normal subcutaneous adipose tissue was identified. We then proceeded with moderate flap closure with a wound size being approximately 4 cm in size and subcutaneous tissue was reapproximated using 3-0 Vicryl interrupted sutures. Skin was closed using 3-0 nylon interrupted sutures. Wound was then cleaned and covered with sterile gauze. The patient tolerated the procedure well. We will admit her back to the floor and continue with IV antibiotics. He may proceed with his normal therapy and we will recommend dry gauze dressing changes on a daily basis as well as p.r.n. Job ID: [id number] DocumentID: [id number] Dictated Date: 09/15/2022 13:16:52 Test Center Manager Date: 09/15/2022 19:47:00 Dictated By: BLADIMIR DAVIDSON MD
--- NOTE | 2022-09-16 16:13 | Progress Note ---
Subjective Date Seen by a Provider: Sep 16, 2022 Time Seen by a Provider: 15:00 Subjective/Events-last exam doing better. pain controlled bilateral axilla with mild SS drainage. no fever/chills. Focused Exam Time of Focused Exam: 05:00 Objective Exam Vital Signs Date Time Temp Pulse Resp B/P (MAP) Pulse Ox O2 Delivery O2 Flow Rate FiO2 09/16/22 15:25 37.4 77 18 116/73 (87) 96 Room Air 09/16/22 11:32 36.2 95 18 127/67 (87) 96 Room Air 09/16/22 11:06 95 Room Air 09/16/22 09:00 Room Air 09/16/22 08:40 36.0 99 18 131/72 (91) 97 Room Air 09/16/22 03:30 36.5 69 18 143/76 (98) 99 Room Air 0.00 0.00 09/15/22 23:23 36.5 81 18 107/62 (77) 98 Room Air 09/15/22 20:50 Room Air 09/15/22 19:44 36.4 75 18 130/84 (99) 96 Room Air 09/15/22 19:22 Room Air I & O 09/16/22 07:00 Intake Total 960 ml Output Total 250 ml Balance 710 ml Capillary Refill : Less Than 3 SecondsLess Than 3 Seconds General Appearance: No Apparent Distress HEENT: PERRL/EOMI Neck: Full Range of Motion Respiratory: Decreased Breath Sounds, Rhonci, Wheezing Cardiovascular: Regular Rate, Rhythm Gastrointestinal: normal bowel sounds, non tender, soft Extremity: Normal Capillary Refill, Other (bilat axilla skin clean/dry) Neurologic/Psychiatric: Alert, Oriented x3 Lymphatic: No Adenopathy Results Lab Laboratory Tests 09/15/22 20:01: Glucometer 118H 09/16/22 05:15: White Blood Count 10.2, Red Blood Count 2.41L, Hemoglobin 7.7L, Hematocrit 23L, Mean Corpuscular Volume 95, Mean Corpuscular Hemoglobin 32, Mean Corpuscular Hemoglobin Concent 34, Red Cell Distribution Width 17.8H, Platelet Count 171, Mean Platelet Volume 10.8, Immature Granulocyte % (Auto) 0, Neutrophils (%) (Auto) 71, Lymphocytes (%) (Auto) 17, Monocytes (%) (Auto) 11, Eosinophils (%) (Auto) 0, Basophils (%) (Auto) 0, Neutrophils # (Auto) 7.3, Lymphocytes # (Auto) 1.8, Monocytes # (Auto) 1.1H, Eosinophils # (Auto) 0.0, Basophils # (Auto) 0.0, Immature Granulocyte # (Auto) 0.0, Sodium Level 141, Potassium Level 3.4L, Chloride Level 108H, Carbon Dioxide Level 22, Anion Gap 11, Blood Urea Nitrogen 5L, Creatinine 0.69, Estimat Glomerular Filtration Rate 100, BUN/Creatinine Ratio 7, Glucose Level 50*L, Calcium Level 8.3L, Corrected Calcium 9.7, Magnesium Level 1.4L, Total Bilirubin 1.0, Aspartate Amino Transf (AST/SGOT) 36H , Alanine Aminotransferase (ALT/SGPT) 254H, Alkaline Phosphatase 173H, Total Protein 5.5L, Albumin 2.3L 09/16/22 07:32: Glucometer 60*L 09/16/22 08:19: Glucometer 126H 09/16/22 11:13: Glucometer 115H 09/16/22 15:25: Glucometer 132H Microbiology 09/15/22 Gram Stain - Final, Resulted 09/15/22 Anaerobic Culture, Resulted Pending 09/15/22 Surgical Culture - Preliminary, Resulted Staphylococcus aureus 09/11/22 MRSA Screen - Final, Complete 09/10/22 Urine Culture - Final, Complete NO GROWTH 09/10/22 Blood Culture - Final, Complete No growth Assessment/Plan Assessment/Plan Assess & Plan/Chief Complaint bilateral axilla hydradenitis s/p bilateral axilla excision hydradenitis. keep axilla clean and dry and apply fluff gauze BID and PRN. will take the external sutures out 2 weeks after d/c. BLADIMIR DAVIDSON MD Sep 16, 2022 16:13
[2022-09-16 20:11] VITALS: BP 132/69
[2022-09-16 23:05] VITALS: BP 120/74
[2022-09-17 05:44] LABS: BASOPHILS % (AUTO) 0 % (0-10); EOSINOPHILS % (AUTO) 0 % (0-10); HEMATOCRIT 21 % (40-54); HEMOGLOBIN 7.3 g/dL (13.3-17.7); LYMPHOCYTES # (AUTO) 1.2 10^3/uL (1.0-4.0); LYMPHOCYTES % (AUTO) 18 % (12-44); MEAN CORPUSCULAR HEMOGLOBIN 33 pg (25-34); MEAN CORPUSCULAR HGB CONC 34 g/dL (32-36); MEAN CORPUSCULAR VOLUME 95 fL (80-99); MEAN PLATELET VOLUME 10.8 fL (9.0-12.2); MONOCYTES # (AUTO) 0.7 10^3/uL (0.0-1.0); MONOCYTES % (AUTO) 10 % (0-12); NEUTROPHILS % (AUTO) 72 % (42-75); PLATELET COUNT 147 10^3/uL (130-400)
[2022-09-17 05:52] LABS: ALBUMIN 2.4 GM/DL (3.2-4.5); POTASSIUM 3.6 MMOL/L (3.6-5.0)
[2022-09-17 05:53] LABS: CALCIUM 8.4 MG/DL (8.5-10.1)
[2022-09-17 05:54] LABS: TOTAL PROTEIN 5.4 GM/DL (6.4-8.2)
[2022-09-17] MEDS: inSUlin ASPART (NovoLOG) 1 UNIT/0.01 ML (CHARGE PER UNIT) SC SCH ×4 (05:55→20:28)
[2022-09-17 05:56] LABS: BILIRUBIN,TOTAL 1.2 MG/DL (0.1-1.0)
[2022-09-17 05:58] LABS: CREATININE SERUM 0.76 MG/DL (0.60-1.30)
[2022-09-17 06:01] LABS: MAGNESIUM 1.4 MG/DL (1.6-2.4)
[2022-09-17] MEDS: PIPERACILLIN SODIUM/TAZOBACTAM 4.5 GM in NS (IVPB) 100 ML IV SCH ×3 (06:28→22:57)
[2022-09-17 07:24] VITALS: BP 130/65
[2022-09-17] MEDS: SENNOSIDES 8.6 MG (SENOKOT) TAB PO SCH ×2 (08:53→20:28)
[2022-09-17] MEDS: NICOTINE 14 MG (NICODERM) PATCH TD SCH (08:53)
[2022-09-17] MEDS: DOCUSATE SODIUM 100 MG (COLACE) CAP PO SCH ×2 (08:53→20:28)
[2022-09-17] MEDS: PANTOPRAZOLE 40 MG (PROTONIX) TAB PO SCH (08:53)
[2022-09-17] MEDS: NICOTINE PATCH REMOVAL TP SCH (08:54)
--- NOTE | 2022-09-17 12:30 | Progress Note - Hospitalist ---
Subjective HPI/CC On Admission Date Seen by Provider: Sep 17, 2022 Time Seen by Provider: 11:00 CC: Severe sepsis HPI: This is a 67yoWM clinic patient of [facility] well known to this examiner due to multiple hospital stays per month for DKA who presents to the ER with weakness found to have severe sepsis due to PNA vs recurrent axillary abscesses. He was seen in the ED 6 days ago for bilateral axillary abscesses which were drained by ED provider, cultured, and treated outpatient with antibiotics. Cultures returned as estevez-sensitive MSSA. No evidence of DKA and he is eating and drinking. He lives at home but due to multiple admits he is willing to entertain dc to [place]. IV abx initiated and pressor therapy initiated for low BP s/p 3 liters of fluid in ER. Subjective/Events-last exam No major issues [facility] have declined the patient for admit Daughter may have a place for him in her home Insulin maintained Review of Systems General: Fatigue, Malaise Focused Exam Time of Focused Exam: 05:00 Objective Exam Vital Signs Vital Signs Date Time Temp Pulse Resp B/P (MAP) Pulse Ox O2 Delivery O2 Flow Rate FiO2 09/17/22 23:52 36.7 68 20 115/71 (86) 95 Room Air 09/16/22 11:06 21 09/16/22 03:30 0.00 0.00 Capillary Refill : Less Than 3 SecondsLess Than 3 Seconds General Appearance: No Apparent Distress, WD/WN, Chronically ill Respiratory: Lungs Clear, Normal Breath Sounds Cardiovascular: Regular Rate, Rhythm Neurologic/Psychiatric: Alert, Oriented x3, Depressed Affect Results/Procedures Lab Laboratory Tests 09/17/22 05:35 Patient resulted labs reviewed. Imaging: Reviewed Imaging Films, Reviewed Imaging Report Assessment/Plan Assessment and Plan Assess & Plan/Chief Complaint Assessment: This is a 67 y/o male admitted for severe sepsis 2/2 PNA vs recurrent axillary abscesses now HD#6. SIRS negative on admit: (07/01) HR >90 --> +1 Temp 36.2 (wnl) RR 18 (wnl) WBC 10.2 Recurrent Axillary abscesses/hidradenitis suppurativa; POD#1 s/p I&D Malaise/weakness -Vanc (dc'd) initially; presumptive MRSA+ screen for surgical culture on 09/16, will restart. Awaiting final culture results from surgical specimen. -Pip/tazo (continued) -Blood cultures, urine cx no growth to date (09/16) -Axillary abscess cultures from 09/04 + for MSSA. Estevez-sensitive except for Pen G. -vital signs stable since admission, afebrile -Continue IV Zosyn given recurrent abscesses and adequate coverage for PNA; -Surgery following; Elevated Liver Enzymes Elevated T. Bili Elevated Coagulation Times Chronic DILI/Alcohol/APAP liver injury vs Choledocholithiasis/cholestasis -INR 2.5 on admit --> r/p was 1.0 -AST/ALT/Alk Phos continue to downtrend. -Could check ammonia level. -Hepatitis, HIV negative. -CT of chest/abdomen/pelvis makes no comment of liver size or abnormalities of liver -Cholelithiasis noted on this study -Has had recent drugs with poss liver toxicity/idiosyncratic enzyme elevations; bactrim, APAP/hydrocodone (level of 26 on admit, mildly elevated), -Pt on ppx heparin, could contribute to elevated enzymes, can consider switch to lovenox as kidney panel is WNL -U/S c/w cirrhosis vs fatty liver. Avoid liver toxic drugs. -Was given a dose of NAC Hx of GI Bleed Hx of Peptic Ulcer Disease -Continue protonix -Had previously been on triple therapy with Dr. Carroll for H. pylori.- recommended therapy for at least 3 months - this was not on home med list; will defer to surgery since consulted for abscesses Insulin-dependent DM -SSI -Levemir 8u BID, will hold for BGL <140 -BGL fasting this AM was 333, previous at 8pm night before was 152 -continue monitoring Neuropathy S/p RL extremity amputation BKA -On gabapentin; may continue FEN/GI -PPI -Bowel regimen - hold now for diarrhea -Diabetic diet/peptic ulcer diet DVT Prophylaxis: SCDs, heparin Critical Care Critically Ill Patient Diagnosis/Problems Diagnosis/Problems (1) Severe sepsis (2) Pneumonia CHIP TAPIA DO Sep 17, 2022 12:30
[2022-09-17 15:47] VITALS: BP 119/71
[2022-09-17 23:52] VITALS: BP 115/71
[2022-09-18 05:08] LABS: ALBUMIN 2.5 GM/DL (3.2-4.5)
[2022-09-18 05:09] LABS: BASOPHILS % (AUTO) 0 % (0-10); EOSINOPHILS % (AUTO) 0 % (0-10); HEMATOCRIT 22 % (40-54); HEMOGLOBIN 7.3 g/dL (13.3-17.7); LYMPHOCYTES # (AUTO) 1.2 10^3/uL (1.0-4.0); LYMPHOCYTES % (AUTO) 21 % (12-44); MEAN CORPUSCULAR HEMOGLOBIN 31 pg (25-34); MEAN CORPUSCULAR HGB CONC 33 g/dL (32-36); MEAN CORPUSCULAR VOLUME 95 fL (80-99); MEAN PLATELET VOLUME 10.6 fL (9.0-12.2); MONOCYTES # (AUTO) 0.7 10^3/uL (0.0-1.0); MONOCYTES % (AUTO) 12 % (0-12); NEUTROPHILS # (AUTO) 3.7 10^3/uL (1.8-7.8); NEUTROPHILS % (AUTO) 65 % (42-75); PLATELET COUNT 164 10^3/uL (130-400); WHITE BLOOD COUNT 5.7 10^3/uL (4.3-11.0)
[2022-09-18 05:09] LABS: POTASSIUM 3.5 MMOL/L (3.6-5.0)
[2022-09-18 05:10] LABS: CALCIUM 8.2 MG/DL (8.5-10.1)
[2022-09-18 05:11] LABS: TOTAL PROTEIN 5.7 GM/DL (6.4-8.2)
[2022-09-18 05:13] LABS: BILIRUBIN,TOTAL 1.2 MG/DL (0.1-1.0)
[2022-09-18 05:15] LABS: CREATININE SERUM 0.77 MG/DL (0.60-1.30)
[2022-09-18 05:18] LABS: MAGNESIUM 1.4 MG/DL (1.6-2.4)
[2022-09-18] MEDS: inSUlin ASPART (NovoLOG) 1 UNIT/0.01 ML (CHARGE PER UNIT) SC SCH ×2 (05:30→10:50)
[2022-09-18] MEDS: PIPERACILLIN SODIUM/TAZOBACTAM 4.5 GM in NS (IVPB) 100 ML IV SCH (05:58)
[2022-09-18 08:17] VITALS: BP 129/69
[2022-09-18] MEDS: NICOTINE 14 MG (NICODERM) PATCH TD SCH (08:29)
[2022-09-18] MEDS: DOCUSATE SODIUM 100 MG (COLACE) CAP PO SCH (08:29)
[2022-09-18] MEDS: PANTOPRAZOLE 40 MG (PROTONIX) TAB PO SCH (08:29)
[2022-09-18] MEDS: SENNOSIDES 8.6 MG (SENOKOT) TAB PO SCH (08:29)
[2022-09-18] MEDS: NICOTINE PATCH REMOVAL TP SCH (08:36)
[2022-09-18] MEDS ORDERED: INSU100I29 SQ (11:33)
[2022-09-18] MEDS ORDERED: SULF1TAB38 PO (11:33)
--- NOTE | 2022-09-18 11:35 | Discharge Summary ---
Discharge Summary Hospital Course Was the Problem List Reviewed?: Yes Problems/Dx: (1) Severe sepsis (2) Pneumonia Hospital Course Date of Admission: Sep 10, 2022 at 07:41 Admission Diagnosis : Family Physician/Provider: Roberto aCrlos Perez DO Date of Discharge: 09/18/22 Discharge Diagnosis: [ ] Hospital Course: Lengthy course after he was admitted for AMS and elevated sugar and PNA requiring ICU stay and aggressive IV abx. Axilla abscesses drained by surgery and DC on abx to daughter's house. Overall we tried to manage diabetes with insulin regimen but unsure if he can maintain compliance and really needed NHP. Labs and Pending Lab Test: Laboratory Tests 09/17/22 15:19: Glucometer 49*L 09/17/22 15:56: Glucometer 73 09/17/22 20:05: Glucometer 163H 09/18/22 04:55: White Blood Count 5.7, Red Blood Count 2.33L, Hemoglobin 7.3L, Hematocrit 22L, Mean Corpuscular Volume 95, Mean Corpuscular Hemoglobin 31, Mean Corpuscular Hemoglobin Concent 33, Red Cell Distribution Width 18.2H, Platelet Count 164, Mean Platelet Volume 10.6, Immature Granulocyte % (Auto) 0, Neutrophils (%) (Auto) 65, Lymphocytes (%) (Auto) 21, Monocytes (%) (Auto) 12, Eosinophils (%) (Auto) 0, Basophils (%) (Auto) 0, Neutrophils # (Auto) 3.7, Lymphocytes # (Auto) 1.2, Monocytes # (Auto) 0.7, Eosinophils # (Auto) 0.0, Basophils # (Auto) 0.0, Immature Granulocyte # (Auto) 0.0 09/18/22 05:00: Sodium Level 142, Potassium Level 3.5L, Chloride Level 113H, Carbon Dioxide Level 19L, Anion Gap 10, Blood Urea Nitrogen 6L, Creatinine 0.77, Estimat Glomerular Filtration Rate 97, BUN/Creatinine Ratio 8, Glucose Level 57*L, Calcium Level 8.2L, Corrected Calcium 9.4, Magnesium Level 1.4L, Total Bilirubin 1.2H, Aspartate Amino Transf (AST/SGOT) 27, Alanine Aminotransferase (ALT/SGPT) 165H, Alkaline Phosphatase 140H, Total Protein 5.7L, Albumin 2.5L 09/18/22 06:02: Glucometer 76 09/18/22 10:41: Glucometer 93 Microbiology 09/15/22 Gram Stain - Final, Resulted 09/15/22 Anaerobic Culture - Preliminary, Resulted No anaerobes isolated 09/15/22 Surgical Culture - Preliminary, Resulted Staphylococcus aureus 09/11/22 MRSA Screen - Final, Complete 09/10/22 Urine Culture - Final, Complete NO GROWTH 09/10/22 Blood Culture - Final, Complete No growth Home Meds Active Levemir Flextouch (Insulin Detemir) 100 Unit/Ml (3 Ml) Insuln.pen 8 Unit SQ BID Bactrim Ds Tablet (Sulfamethoxazole/Trimethoprim) 1 Each Tablet 1 Each PO BID Reported Sulfamethoxazole-Tmp Susp 200MG/40MG/5ML (Sulfamethoxazole/Trimethoprim) 200 Mg- 40 Mg/5 Ml Oral.susp 20 Ml PO BID ILLED 09-08-2022 #200/5 DAY SUPPLY Levemir (Insulin Determir) 100 Unit/Ml Soln 13 Units SQ HS Levemir Flexpen (Insulin Detemir) 100 Unit/Ml (3 Ml) Insuln.pen 8 Units SC DAILY Sucralfate 1 Gram/10 Ml Oral.susp 10 Ml PO ACHS Novolog (Insulin Aspart) 100 Unit/Ml Susp Unit SQ AC USES SLIDING SCALE B-1 (Thiamine HCl) 100 Mg Tablet 100 Mg PO DAILY Folic Acid 1 Mg Tablet 1 Mg PO DAILY Tab-A-Froilan Multivit with Iron (Multivitamin/Iron/Folic Acid) 18 Mg Iron-400 Mcg Tablet 1 Each PO DAILY Pantoprazole Sodium 40 Mg Tablet.dr 40 Mg PO BID Tylenol Extra Strength (Acetaminophen) 500 Mg Tablet 2,000 Mg PO Q6H PRN TAKES 4 (500MG) TABS Gabapentin 600 Mg Tablet 600 Mg PO TID Assessment/Pt Instructions PCP 1 week Discharge Planning: <30 minutes discharge planning Discharge Physical Examination Vital Signs Vital Signs Date Time Temp Pulse Resp B/P (MAP) Pulse Ox O2 Delivery O2 Flow Rate FiO2 09/18/22 09:00 Room Air 09/18/22 08:17 36.4 58 18 129/69 (89) 97 09/16/22 11:06 21 09/16/22 03:30 0.00 0.00 General Appearance: No Apparent Distress, WD/WN, Chronically ill Allergies: Coded Allergies: No Known Drug Allergies (Unverified , 05/02/11) Discharge Summary Date of Admission Sep 10, 2022 at 07:41 Date of Discharge Discharge Date: Sep 18, 2022 Admission Diagnosis Assess & Plan/Chief Complaint Severe sepsis PNA Hyperlipidemia Hx of Peptic Ulcer Disease Hx of GI Bleed Debility/Weakness KAIT Plan: ICU IVF IV abx Pressors Monitor hgb Discharge Diagnosis Assessment: This is a 67 y/o male admitted for severe sepsis 2/2 PNA vs recurrent axillary abscesses now HD#6. SIRS negative on admit: (07/01) HR >90 --> +1 Temp 36.2 (wnl) RR 18 (wnl) WBC 10.2 Recurrent Axillary abscesses/hidradenitis suppurativa; POD#1 s/p I&D Malaise/weakness -Vanc (dc'd) initially; presumptive MRSA+ screen for surgical culture on 09/16, will restart. Awaiting final culture results from surgical specimen. -Pip/tazo (continued) -Blood cultures, urine cx no growth to date (09/16) -Axillary abscess cultures from 09/04 + for MSSA. Valerio-sensitive except for Pen G. -vital signs stable since admission, afebrile -Continue IV Zosyn given recurrent abscesses and adequate coverage for PNA; -Surgery following; Elevated Liver Enzymes Elevated T. Bili Elevated Coagulation Times Chronic DILI/Alcohol/APAP liver injury vs Choledocholithiasis/cholestasis -INR 2.5 on admit --> r/p was 1.0 -AST/ALT/Alk Phos continue to downtrend. -Could check ammonia level. -Hepatitis, HIV negative. -CT of chest/abdomen/pelvis makes no comment of liver size or abnormalities of liver -Cholelithiasis noted on this study -Has had recent drugs with poss liver toxicity/idiosyncratic enzyme elevations; bactrim, APAP/hydrocodone (level of 26 on admit, mildly elevated), -Pt on ppx heparin, could contribute to elevated enzymes, can consider switch to lovenox as kidney panel is WNL -U/S c/w cirrhosis vs fatty liver. Avoid liver toxic drugs. -Was given a dose of NAC Hx of GI Bleed Hx of Peptic Ulcer Disease -Continue protonix -Had previously been on triple therapy with Dr. Carroll for H. pylori.- recommended therapy for at least 3 months - this was not on home med list; will defer to surgery since consulted for abscesses Insulin-dependent DM -SSI -Levemir 8u BID, will hold for BGL <140 -BGL fasting this AM was 333, previous at 8pm night before was 152 -continue monitoring Neuropathy S/p RL extremity amputation BKA -On gabapentin; may continue FEN/GI -PPI -Bowel regimen - hold now for diarrhea -Diabetic diet/peptic ulcer diet DVT Prophylaxis: SCDs, heparin (1) Severe sepsis (2) Pneumonia CHIP TAPIA DO Sep 18, 2022 11:35
--- NOTE | 2022-09-18 11:35 | D/C HH Face to Face Order ---
D/C Face to Face Orders Reconcile Patient Problems Problems Reviewed?: Yes Instructions for Patient Via [facility], Patient Instructions/FollowUp: PCP 1 week Physician to follow Patient: [facility] Discharge Diet for Home: ADA Diet Patient Problems: Diabetes Patient Data-Allergies,Ht & Wt Patient Allergies: Coded Allergies: No Known Drug Allergies (Unverified , 05/02/11) Home Health Need/Face to Face Date of Face to Face: Sep 18, 2022 Clinical Findings: Generalized weakness and fatigue, Instability, Muscle weakness I have seen Pt [id number]: Yes Discharged To: Home Diagnosis/Conditions: Debility Patient is Homebound due to: Muscle weakness Homebound Status Due to the above stated illness, injury or surgical procedure (medical condition or diagnosis) and associated clinical findings, the patient is homebound because of his/her inability to leave home except with aid of a supportive device and/or person AND leaving the home requires a considerable and taxing effort or is medically contraindicated. Pt req the following assistanc: Wheelchair Home Health Nursing Orders Home Health Services Order: Nursing Services, Double Reamer Operator-Evaluate & Treat, Physical Therapy-Evaluate & Treat Home Health Infusion Therapy Line Start Date: Sep 10, 2022 Certify Stmt I certify that this patient is under my care and that I, a nurse practitioner or a physician; a data assistant working with me, had a face to face encounter that - meets the physician face to face encounter requirements with this patient as dated. CHIP TAPIA DO Sep 18, 2022 11:35
== END 2022-09-18 14:31 | disposition home or self-care (01) | DRG 853 ==
LOC: EDUNIT# 03:06 → ER 03:10 → ICU 07:41 → 4TH 09-14 13:07
PROVIDERS: ADMIT Internal Medicine; ATTEND Internal Medicine
PROC: 0JBF0ZZ Excision of Left Upper Arm Subcutaneous Tissue and Fascia, Open Approach (ICD-10-PCS; 2022-09-15)
PROC: 0JBD0ZZ Excision of Right Upper Arm Subcutaneous Tissue and Fascia, Open Approach (ICD-10-PCS; principal; 2022-09-15 11:52)
DX: A41.9 Sepsis, unspecified organism (principal); J18.9 Pneumonia, unspecified organism; R65.21 Severe sepsis with septic shock; K72.00 Acute and subacute hepatic failure without coma; N17.9 Acute kidney failure, unspecified; K80.51 Calculus of bile duct without cholangitis or cholecystitis with obstruction; E87.20 Acidosis, unspecified; D68.9 Coagulation defect, unspecified; B37.0 Candidal stomatitis; L02.412 Cutaneous abscess of left axilla; L02.411 Cutaneous abscess of right axilla; L73.2 Hidradenitis suppurativa; E78.5 Hyperlipidemia, unspecified; R53.81 Other malaise; R53.1 Weakness; K71.0 Toxic liver disease with cholestasis; E11.40 Type 2 diabetes mellitus with diabetic neuropathy, unspecified; Z89.511 Acquired absence of right leg below knee; Z79.4 Long term (current) use of insulin; Z79.899 Other long term (current) drug therapy; F17.210 Nicotine dependence, cigarettes, uncomplicated; F15.90 Other stimulant use, unspecified, uncomplicated; F11.90 Opioid use, unspecified, uncomplicated; Z20.822 Contact with and (suspected) exposure to COVID-19; E86.0 Dehydration; D64.9 Anemia, unspecified; E11.65 Type 2 diabetes mellitus with hyperglycemia; G89.29 Other chronic pain
CPT/HCPCS: 36415; 36569; 71045; 71250; 74176; 76705; 76937; 80048; 80053; 80074; 80306; 80320; 80329; 81000; 82010; 82150; 82805; 82947; 83036; 83605; 83690; 83735; 84100; 84484; 85007; 85025; 85027; 85610; 85730; 87040; 87070; 87075; 87077; 87081; 87088; 87186; 87205; 87389; 87636; 88305; 93005; 93041; 94760; 96361; 96365; 96367; 96375

== ENCOUNTER 2023-01-11 18:44 | Emergency (ER) | payer MEDICARE, MEDICAID ==
[~2023-01-11 18:44] MED LIST changes: -INSU100I29 SQ; +INSU100I30 SQ; +INSU100I88 SC; +INSU100V16 SQ; +INSU100V5 SQ; +SUCR1ORA15 PO; +SULF473O12 PO
--- NOTE | 2023-01-11 18:59 | ED Lower Extremity ---
General Chief Complaint: Lower Extremity Stated Complaint: RIGHT LEG PAIN Source: patient Exam Limitations: no limitations History of Present Illness Date Seen by Provider: Jan 11, 2023 Time Seen by Provider: 18:58 Initial Comments Patient is a 67-year-old male who presents to the emergency department with a chief complaint of right lower extremity pain. He is status post BKA on the left. Long history of chronic alcoholism as well as opiate abuse and depende nce. Currently only "allowed" by his primary care physician to have ibuprofen. His daughter is present at the bedside and he lives with her. She states the leg has been quite swollen but he has decreased his amount of salt and elevated the leg and the swelling has gone down however he still has some edema and pain in the calf muscles. He states he had an ultrasound about 4 weeks ago. No DVT was found. She states it looks much better but he was still complaining of pain. No other complaints of illness. He states his blood sugar has been running "high". He was started on a new insulin, injectable once in the morning last Wednesday. He filled it and started it today however when his blood sugar was still "high" he took a second dose of that insulin. They are unsure which one it was. Patient is obviously intoxicated with a little slurred speech. Strong smell of alcohol from his breath. Patient states when asked how much to drink, "as much as I can" he says. Self medicates for his "pain". Onset: other (2 WEEKS) Severity: moderate Pain/Injury Location: right leg Modifying Factors: Worse With Movement Allergies and Home Medications Allergies Coded Allergies: No Known Drug Allergies (Unverified , 05/02/11) Patient Home Medication List Home Medication List Reviewed: Yes Acetaminophen (Tylenol Extra Strength) 500 Mg Tablet, 2,000 MG PO Q6H PRN for PAIN-MILD (1-4), (Reported) Entered as Reported by: BAKARI PRATT on 08/28/22 1014 Folic Acid (Folic Acid) 1 Mg Tablet, 1 MG PO DAILY, (Reported) Entered as Reported by: BAKARI PRATT on 08/28/22 1014 Gabapentin (Gabapentin) 600 Mg Tablet, 600 MG PO TID, (Reported) Entered as Reported by: BAKARI PRATT on 08/28/22 1014 Insulin Aspart (Novolog) 100 Unit/Ml Susp, UNIT SQ AC, (Reported) Entered as Reported by: BAKARI PRATT on 09/10/22 1542 Insulin Detemir (Levemir Flextouch) 100 Unit/Ml (3 Ml) Insuln.pen, 8 UNIT SQ BID Prescribed by: CHIP TAPIA on 09/18/22 1133 Multivitamin/Iron/Folic Acid (Tab-A-Froilan Multivit with Iron) 18 Mg Iron-400 Mcg Tablet, 1 EACH PO DAILY, (Reported) Entered as Reported by: BAKARI PRATT on 08/28/22 1014 Pantoprazole Sodium (Pantoprazole Sodium) 40 Mg Tablet.dr, 40 MG PO BID, (Reported) Entered as Reported by: BAKARI PRATT on 08/28/22 1014 Sucralfate (Sucralfate) 1 Gram/10 Ml Oral.susp, 10 ML PO ACHS, (Reported) Entered as Reported by: BAKARI PRATT on 09/10/22 1542 Sulfamethoxazole/Trimethoprim (Bactrim Ds Tablet) 1 Each Tablet, 1 EACH PO BID Prescribed by: CHIP TAPIA on 09/18/22 1133 Thiamine HCl (B-1) 100 Mg Tablet, 100 MG PO DAILY, (Reported) Entered as Reported by: BAKARI PRATT on 08/28/22 1014 Review of Systems Constitutional: see HPI EENTM: no symptoms reported Respiratory: no symptoms reported Cardiovascular: edema Gastrointestinal: no symptoms reported Musculoskeletal: other (right leg pain) Skin: no symptoms reported Past Yuqocio-Yngcst-Rudqli Hx Patient Social History Tobacco Use?: Yes Tobacco type used: Cigarettes Smoking Status: Current Everyday Smoker Substance use?: No Alcohol Use?: Yes Alcohol type: Beer Alcohol Frequency: Daily Pt feels they are or have been: No Immunizations Up To Date First/Initial COVID19 Vaccinat: 01/20/2021 Second COVID19 Vaccination Dylan: 02/20/2021 Third COVID19 Vaccination Date: 09/03/2021 Past Medical History Surgery/Hospitalization HX: DM, AMPUTATION, DKA Surgeries: Yes (LEFT BKA) Amputation, Orthopedic Respiratory: No (PT WAS INTUBATED 10/2020 DUE TO OVERDOSE) Currently Using CPAP: No Currently Using BIPAP: No Cardiac: No High Cholesterol, Hypertension Neurological: Yes Neuropathy Genitourinary: No Gastrointestinal: Yes (GI BLEED DUE TO NSAIDS 07/2022) Gastrointestinal Bleed, Ulcer Musculoskeletal: Yes (L BKA DUE TO OSTEOMYELITIS/SEPTIC SHOCK/DKA; CHRONIC GENERALIZED PAIN ) Amputee Endocrine: Yes (MULTIPLE EPISODES OF DKA. ) Diabetes, Insulin dep HEENT: Yes (EDENTULOUS) Cancer: No Psychosocial: Yes (OVERDOSED 10/2020; POLYSUBSTANCE ABUSE) Integumentary: Yes (ABSCESSES) Blood Disorders: No Family Medical History No Pertinent Family Hx SOCIAL HISTORY: -SMOKES 1 PPD SINCE AGE 10 -ETOH--DRINKS A PINT OF HARD LIQUOR A DAY ALL OF HIS LIFE -DRUGS--HX OF OPIATE ABUSE /OVERDOSE, HAS BEEN ON METHADONE IN PAST WELL CHRONIC OPIATE USE PT STATES HE HAS "USED ALL OF THEM" , WITH EXTENSIVE IV DRUG USE. STATES HIS DRUG OF CHOICE HAS BEEN METHAMPHETAMINES, CLAIMS NONE X 2 YEARS, PER PT ON 09/10/22 HAD LEFT BKA DONE DUE TO OSTEOMYELITIS WITH SEPTIC SHOCK AND DKA. Physical Exam Vital Signs Vital Signs - First Documented 01/11/23 18:51 Pulse 84 Resp 18 B/P (MAP) 96/65 (75) Pulse Ox 98 O2 Delivery Room Air Capillary Refill : Height, Weight, BMI Height: '" Weight: lbs. oz. kg; 20.48 BMI Method:Estimated General Appearance: no apparent distress, other (appears chronically ill) HEENT: PERRL/EOMI, other (smell of etoh on his breath) Cardiovascular: regular rate, rhythm Respiratory: no respiratory distress, no accessory muscle use Hips: bilateral hip normal range of motion Legs: right leg normal range of motion, right leg soft tissue tenderness, right leg swelling; left leg other (s/p BKA (stump not erythematous/edematous)) Knees: bilateral knee non-tender, bilateral knee normal inspection, bilateral knee normal range of motion, bilateral knee no evidence of injury Ankles: right ankle swelling Feet: right foot swelling Neurologic/Tendon: normal sensation, normal motor functions Neurologic/Psychiatric: alert, normal mood/affect, oriented x 3 Skin: normal color, warm/dry Procedures/Interventions Date of ETT Placement: November 16, 2020 Time of ETT Placement: 1510 Progress/Results/Core Measures Results/Orders My Orders Orders - DAVID RAYO MD Accucheck Stat ONCE (01/11/23 19:22) Vital Signs/I&O 01/11/23 01/11/23 18:51 19:28 Pulse 84 84 Resp 18 18 B/P (MAP) 96/65 (75) 96/65 Pulse Ox 98 98 O2 Delivery Room Air Room Air Progress Progress Note : Time: 19:33 Progress Note Notified by LAZARO Dailey patient left. He and his daughter were battling about his use of pain meds. I had planned to check a blood sugar as she advised he double dosed his Lantus this morning due to "High" readings on his blood sugar. I was also going to do some reading about his use of pain meds and potentially give him some for his pain. However he became angry (likely due to intoxication) and left. Departure Impression Primary Impression: Right leg pain Additional Impression: Alcohol abuse Disposition: 07 AGAINST MEDICAL ADVICE Condition: Against Medical Advice Departure-Patient Inst. Referrals: BAKARI HINSON DO (PCP/Family) Primary Care Physician Copy Copies To 1: BAKARI HINSON KATHRYN M MD Jan 11, 2023 18:58
[2023-01-11 19:28] VITALS: BP 96/65
== END 2023-01-11 19:28 | disposition left against medical advice (07) ==
LOC: EDUNIT# 18:44 → ER 18:47
DX: M79.604 Pain in right leg (principal); F10.10 Alcohol abuse, uncomplicated; M79.89 Other specified soft tissue disorders; E11.40 Type 2 diabetes mellitus with diabetic neuropathy, unspecified; E11.10 Type 2 diabetes mellitus with ketoacidosis without coma; F17.210 Nicotine dependence, cigarettes, uncomplicated; Z79.4 Long term (current) use of insulin
CPT/HCPCS: 99281